=== PATIENT | female | born 1990 | race Hispanic/Latino ===

== ENCOUNTER 2017-06-09 09:31 | Emergency (ER) | payer OTHER, SELFPAY ==
[2017-06-09] MEDS ORDERED: NA CHLORIDE 0.9% 1,000 ML ONE (12:41)
--- NOTE | 2017-06-09 12:41 | RAD REPORT ---
EXAM DESCRIPTION: RAD - Chest Single View - 06/09/2017 12:28 pm CLINICAL HISTORY: Fever, chest pain, cough COMPARISON: September 2015 TECHNIQUE: AP portable chest image was obtained 1218 hours . FINDINGS: Lungs are clear. Heart and vasculature are normal. No measurable pleural effusion and no p neumothorax. No gross bony abnormality seen. No acute aortic findings suspected. IMPRESSION: No acute cardiopulmonary process. No significant interval change.
[2017-06-09] MEDS ORDERED: ACETAMINOPHEN 500 MG TAB ONE (13:25)
[2017-06-09 13:41] LABS: Absolute Monocytes 0.6 K/uL (0.1-1.3); Absolute Neutrophil 8.3 K/uL (1.8-8.0); Basophils % 0.4 % (0-1.3); Eosinophils % 0.3 % (0-4.4); Hematocrit 37.6 % (36.0-45.0); MCH 24.5 pg (27.0-35.0); MCV 75.7 fL (80-100); MPV 9.3 fL (7.6-11.3); Monocytes % 5.8 % (3.3-12.3); RBC Red Blood Cell Count 4.97 M/uL (3.86-4.86)
[2017-06-09 13:46] LABS: Potassium 3.2 mEq/L (3.6-5.0)
[2017-06-09] MEDS ORDERED: ONDANSETRON 4 MG/2 ML VIAL ONE (13:50)
[2017-06-09] MEDS ORDERED: CEFTRIAXONE/SWI 1gm 1 GM/10 ML SYR ONE (13:50)
[2017-06-09 13:52] LABS: Albumin 4.1 g/dL (3.2-5.5); Bilirubin Direct 0.1 mg/dL (0-0.2); Bilirubin Total 0.5 mg/dL (0.3-1.2); Protein, Total 7.6 g/dL (6.0-8.3); Protime INR 1.03
--- NOTE | 2017-06-09 13:53 | EKG ---
Test Date: 2017-06-09 Test Time: 10:17:35 Repair Operator: MAINE MEASUREMENT RESULTS: Intervals: Rate: 105 LA: 156 QRSD: 80 QT: 314 QTc: 415 [place]: P: 73 LA: 156 QRS: 61 T: -38 INTERPRETIVE STATEMENTS: Sinus tachycardia T wave abnormality, consider inferior ischemia T wave abnormality, consider anterolateral ischemia Abnormal ECG Compared to ECG 09/30/2015 00:09:30 T-wave abnormality now present Possible ischemia now present Sinus rhythm no longer present Myocardial infarct finding no longer present Electronically Signed On 06-09-17 13:52:39 CDT by Catrachito Saravia
[2017-06-09 13:54] LABS: Urine Blood NEGATIVE (NEG); Urine Glucose NEGATIVE (NEG); Urine Protein 1+ (NEG); Urine Specific Gravity >1.030 (1.005-1.030); Urine pH 5.5 (5.0-7.0)
[2017-06-09 13:55] LABS: CKMB Creatine Kinase MB 0.9 ng/ml (0.3-4.0); Magnesium 1.6 mg/dL (1.8-2.5)
--- NOTE | 2017-06-09 13:55 | ER ---
Nurse's Notes [facility] Name: Harriett Gillette Age: 26 yrs Sex: Female : 1990 Arrival Date: 06/09/2017 Time: 09:34 Bed 14 Private MD: Julio Strange S Diagnosis: Fever, unspecified;Chest pain, unspecified;Nausea;Hypokalemia;Hypomagnesemia Presentation: 06/09 10:07 Presenting complaint: Patient states: has been having fever, CP, diarrhea, vomiting X 2 iw days, denies sore throat, denies cough. Transition of care: patient was not received from another setting of care. Onset of symptoms was June 07, 2017. Initial Sepsis Screen: Does the patient meet any 2 criteria? No. Patient's initial sepsis screen is negative. Does the patient have a suspected source of infection? No. Patient's initial sepsis screen is negative. Care prior to arrival: None. 10:07 Method Of Arrival: Ambulatory iw 10:07 Acuity: TIFFANIE 3 iw Historical: - Allergies: 14:52 Codeine; ph - PMHx: 14:52 heart valve dysfunction; ph - PSHx: 14:52 Appendectomy; ph - Immunization history:: Adult Immunizations not up to date. - Social history:: Smoking status: Patient/guardian denies using tobacco. - Family history:: not pertinent. Screenin:52 Abuse screen: Denies threats or abuse. Denies injuries from another. Nutritional ph screening: No deficits noted. Tuberculosis screening: No symptoms or risk factors identified. Fall Risk None identified. Assessment: 12:30 General: Appears in no apparent distress. uncomfortable, well groomed, Behavior is ph calm, cooperative, appropriate for age, Reports fever for 12-24 hours. Pain: Complains of pain in abdomen. Neuro: Level of Consciousness is awake, alert, obeys commands, Oriented to person, place, time, situation. Cardiovascular: Reports chest pain, nausea, vomiting, Denies fatigue, lightheadedness, palpitations, shortness of breath, Capillary refill < 3 seconds Patient's skin is warm and dry. Respiratory: Airway is patent Respiratory effort is even, unlabored, Respiratory pattern is regular, symmetrical. GI: Abdomen is round non-distended, Bowel sounds present X 4 quads. Abd is soft and non tender X 4 quads. Reports diarrhea, nausea, vomiting. Derm: Skin is intact, Skin is pink, warm \T\ dry. Musculoskeletal: Circulation, motion, and sensation intact. Range of motion: intact in all extremities. 13:30 Reassessment: Patient appears in no apparent distress at this time. Patient and/or ph family updated on plan of care and expected duration. Pain level reassessed. Patient is alert, oriented x 3, equal unlabored respirations, skin warm/dry/pink. Pt resting quietly, awaiting lab results. 14:30 Reassessment: Patient appears in no apparent distress at this time. Patient and/or ph family updated on plan of care and expected duration. Pain level reassessed. Patient is alert, oriented x 3, equal unlabored respirations, skin warm/dry/pink. Pt resting quietly, d/c pending completion of IV meds. Vital Signs: 10:31 BP 113 / 76; Pulse 105; Resp 16; Pulse Ox 98% on R/A; iw 13:21 BP 106 / 66; Pulse 76; Resp 18; Pulse Ox 97% on R/A; ph 14:30 BP 111 / 72; Pulse 72; Resp 18; Pulse Ox 98% on R/A; ph 15:25 BP 108 / 68; Pulse 71; Resp 18; Temp 97.8; Pulse Ox 99% on R/A; ph ED Course: 09:34 Patient arrived in ED. mr 09:34 Julio Strange MD is Private Physician. mr 10:08 Triage completed. iw 10:22 EKG done, by water filtration technician. reviewed by Jalil Tapia MD. at1 11:53 Tabitha Hill, AHSAN is Primary Nurse. ph 11:56 Jalil Tapia MD is Attending Physician. augie 12:26 X-ray completed. Portable x-ray completed in exam room. Patient tolerated procedure ml well. 12:26 XRAY Chest (1 view) In Process Unspecified. EDMS 13:15 Urine collected: clean catch specimen, clear. dh3 13:21 Arm band placed on. ph 14:57 Patient has correct armband on for positive identification. Placed in gown. Bed in low ph position. Call light in reach. 15:29 No provider procedures requiring assistance completed. ph 15:29 IV discontinued, intact, bleeding controlled, No redness/swelling at site. Pressure ph dressing applied. Administered Medications: 12:45 Drug: NS 0.9% 1000 ml Route: IV; Rate: 1 bolus; Site: left antecubital; ph 14:00 Follow up: Response: No adverse reaction; IV Status: Completed infusion ph 13:28 Drug: Tylenol 1000 mg Route: PO; ph 15:00 Follow up: Response: No adverse reaction ph 13:45 Drug: Zofran 4 mg Route: IVP; Site: right antecubital; ph 14:30 Follow up: Response: No adverse reaction; Nausea is decreased ph 14:15 Drug: Rocephin - (cefTRIAXone) 1 grams Route: IVPB; Infused Over: 30 mins; Site: left ph antecubital; 14:30 Follow up: Response: No adverse reaction; IV Status: Completed infusion ph 14:35 Drug: Magnesium Sulfate 1 grams Route: IVPB; Infused Over: 1 hrs; Site: left ph antecubital; 15:25 Follow up: Response: No adverse reaction; IV Status: Completed infusion ph 14:51 Drug: Potassium Chloride 40 mEq Route: PO; ph 15:00 Follow up: Response: No adverse reaction ph Outcome: 13:54 Discharge ordered by . augie 15:29 Patient left the ED. em 15:29 Discharged to home ambulatory. ph 15:29 Condition: good 15:29 Discharge instructions given to patient, Instructed on discharge instructions, follow up and referral plans. medication usage, Demonstrated understanding of instructions, follow-up care, medications, Prescriptions given X 2. Signatures: Dispatcher [employer] Jalil Hamilton MD MD cha Rivera, Maria mr Patel, Sage, HEATER HELPER FORGE HEATER HELPER FORGE em Analia Espino RN RN iw Lopez, Melissa ml gonzales, Amanda, metalizing supervisor EKG Tat1 Tabitha Hill RN RN Moiz, Araceli 3
--- NOTE | 2017-06-09 13:55 | EDPHYS ---
Physician Documentation [facility] Name: Harriett Gillette Age: 26 yrs Sex: Female : 1990 Arrival Date: 06/09/2017 Time: 09:34 Bed 14 Private MD: Julio Strange S ED Physician Jalil Tapia HPI: 06/09 12:31 This 26 yrs old Female presents to ER via Ambulatory with complaints of augie Nausea, Fever, Chest Pain. 12:31 This 26 yrs old Female presents to ER via Ambulatory with complaints of augie Nausea, Fever, Chest Pain. 12:31 The patient presents to the emergency department with nausea. Onset: The augie symptoms/episode began/occurred 2 day(s) ago. Possible causes: unknown. Associated signs and symptoms: Pertinent positives:. 12:34 The patient or guardian reports chest pain that is located primarily in the anterior augie chest wall. The symptoms are aggravated by nothing. The symptoms are alleviated by nothing. Associated signs and symptoms: The patient has no apparent associated signs or symptoms. Historical: - Allergies: 14:52 Codeine; ph - PMHx: 14:52 heart valve dysfunction; ph - PSHx: 14:52 Appendectomy; ph - Immunization history:: Adult Immunizations not up to date. - Social history:: Smoking status: Patient/guardian denies using tobacco. - Family history:: not pertinent. ROS: 12:34 Constitutional: Negative for fever, chills, and weight loss, Eyes: Negative for injury, augie pain, redness, and discharge, ENT: Negative for injury, pain, and discharge, Neck: Negative for injury, pain, and swelling, Back: Negative for injury and pain, : Negative for injury, bleeding, discharge, and swelling, MS/Extremity: Negative for injury and deformity, Skin: Negative for injury, rash, and discoloration, Neuro: Negative for headache, weakness, numbness, tingling, and seizure, Psych: Negative for depression, anxiety, suicide ideation, homicidal ideation, and hallucinations, Allergy/Immunology: Negative for hives, rash, and allergies, Endocrine: Negative for neck swelling, polydipsia, polyuria, polyphagia, and marked weight changes, Hematologic/Lymphatic: Negative for swollen nodes, abnormal bleeding, and unusual bruising. 12:34 Cardiovascular: Positive for chest pain. 12:34 Respiratory: Positive for cough. 12:34 Abdomen/GI: Positive for nausea and vomiting. Exam: 12:34 Constitutional: This is a well developed, well nourished patient who is awake, alert, augie and in no acute distress. Head/Face: Normocephalic, atraumatic. Eyes: Pupils equal round and reactive to light, extra-ocular motions intact. Lids and lashes normal. Conjunctiva and sclera are non-icteric and not injected. Cornea within normal limits. Periorbital areas with no swelling, redness, or edema. ENT: Nares patent. No nasal discharge, no septal abnormalities noted. Tympanic membranes are normal and external auditory canals are clear. Oropharynx with no redness, swelling, or masses, exudates, or evidence of obstruction, uvula midline. Mucous membranes moist. Neck: Trachea midline, no thyromegaly or masses palpated, and no cervical lymphadenopathy. Supple, full range of motion without nuchal rigidity, or vertebral point tenderness. No Meningismus. Chest/axilla: Normal chest wall appearance and motion. Nontender with no deformity. No lesions are appreciated. Respiratory: Lungs have equal breath sounds bilaterally, clear to auscultation and percussion. No rales, rhonchi or wheezes noted. No increased work of breathing, no retractions or nasal flaring. Abdomen/GI: Soft, non-tender, with normal bowel sounds. No distension or tympany. No guarding or rebound. No evidence of tenderness throughout. Back: No spinal tenderness. No costovertebral tenderness. Full range of motion. Female : Normal external genitalia. Skin: Warm, dry with normal turgor. Normal color with no rashes, no lesions, and no evidence of cellulitis. MS/ Extremity: Pulses equal, no cyanosis. Neurovascular intact. Full, normal range of motion. Neuro: Awake and alert, GCS 15, oriented to person, place, time, and situation. Cranial nerves II-XII grossly intact. Motor strength 5/5 in all extremities. Sensory grossly intact. Cerebellar exam normal. Normal gait. Psych: Awake, alert, with orientation to person, place and time. Behavior, mood, and affect are within normal limits. 12:34 Cardiovascular: Rate: tachycardic, Rhythm: regular, Pulses: Pulses are 4+ in bilateral radial, brachial, femoral, popliteal, posterior tibial and and dorsalis pedis arteries.. Heart sounds: normal, Edema: is not appreciated, JVD: is not appreciated. 13:45 Musculoskeletal/extremity: DVT Exam: No signs of deep vein thrombosis. no pain, no augie swelling, no tenderness, negative Homans' sign noted on exam, no appreciated bluish discoloration, no erythema, no increased warmth. Vital Signs: 10:31 BP 113 / 76; Pulse 105; Resp 16; Pulse Ox 98% on R/A; iw 13:21 BP 106 / 66; Pulse 76; Resp 18; Pulse Ox 97% on R/A; ph 14:30 BP 111 / 72; Pulse 72; Resp 18; Pulse Ox 98% on R/A; ph 15:25 BP 108 / 68; Pulse 71; Resp 18; Temp 97.8; Pulse Ox 99% on R/A; ph MDM: 11:56 Patient medically screened. [facility] 13:45 Data reviewed: vital signs, nurses notes, lab test result(s), EKG, radiologic studies, [facility] plain films. 06/09 12:01 Order name: Basic Metabolic Panel; Complete Time: 13:[address] [facility] 06/09 12:01 Order name: BNP [facility] 06/09 12:01 Order name: CBC with Diff; Complete Time: 13:[address] [facility] 06/09 12:01 Order name: Ckmb; Complete Time: 13:[address] [facility] 06/09 12:01 Order name: CPK; Complete Time: 13:[address] [facility] 06/09 12:01 Order name: LFT's; Complete Time: 13:[address] [facility] 06/09 12:01 Order name: Magnesium; Complete Time: 13:[address] [facility] 06/09 12:01 Order name: PT-INR [facility] 06/09 12:01 Order name: Ptt, Activated [facility] 06/09 12:01 Order name: Troponin (emerg Dept Use Only); Complete Time: 13:[address] [facility] 06/09 12:01 Order name: Blood Culture Adult (2) [facility] 06/09 12:01 Order name: Lipase; Complete Time: 13:[address] [facility] 06/09 13:41 Order name: Urine Dipstick--Ancillary (enter results); Complete Time: 13:56 06/09 13:41 Order name: Urine --Ancillary (enter results); Complete Time: 13:56 06/09 12:01 Order name: Urine Test (obtain specimen); Complete Time: 13:[address] [facility] 06/09 12:01 Order name: XRAY Chest (1 view); Complete Time: 13:[address] [facility] 06/09 12:01 Order name: EKG; Complete Time: 12:[address] [facility] 06/09 12:01 Order name: Cardiac monitoring; Complete Time: 13:[address] [facility] 06/09 12:01 Order name: EKG - Nurse/Tech; Complete Time: 13:[address] [facility] 06/09 12:01 Order name: IV Saline Lock; Complete Time: 13:[address] [facility] 06/09 12:01 Order name: Labs collected and sent; Complete Time: 13:[address] [facility] 06/09 12:01 Order name: O2 Per Protocol; Complete Time: 13:[address] [facility] 06/09 12:01 Order name: O2 Sat Monitoring; Complete Time: 13:[address] [facility] 06/09 12:01 Order name: Urine Dipstick-Ancillary (obtain specimen); Complete Time: 13:[address] [facility] Administered Medications: 12:45 Drug: NS 0.9% 1000 ml Route: IV; Rate: 1 bolus; Site: left antecubital; ph 14:00 Follow up: Response: No adverse reaction; IV Status: Completed infusion ph 13:28 Drug: Tylenol 1000 mg Route: PO; ph 15:00 Follow up: Response: No adverse reaction ph 13:45 Drug: Zofran 4 mg Route: IVP; Site: right antecubital; ph 14:30 Follow up: Response: No adverse reaction; Nausea is decreased ph 14:15 Drug: Rocephin - (cefTRIAXone) 1 grams Route: IVPB; Infused Over: 30 mins; Site: left ph antecubital; 14:30 Follow up: Response: No adverse reaction; IV Status: Completed infusion ph 14:35 Drug: Magnesium Sulfate 1 grams Route: IVPB; Infused Over: 1 hrs; Site: left ph antecubital; 15:25 Follow up: Response: No adverse reaction; IV Status: Completed infusion ph 14:51 Drug: Potassium Chloride 40 mEq Route: PO; ph 15:00 Follow up: Response: No adverse reaction ph Disposition: 06/09/17 13:54 Discharged to Home. Impression: Fever, unspecified, Chest pain, unspecified, Nausea, Hypokalemia, Hypomagnesemia. - Condition is Stable. - Discharge Instructions: Nonspecific Chest Pain, Potassium Content of Foods, Fever, Adult, Hypomagnesemia, Nausea, Adult, Nausea and Vomiting, [id number], Nonspecific Chest Pain, Qkzh-[id number], Fever, Adult, [id number], Hypokalemia. - Prescriptions for Zofran 4 mg Oral Tablet - take 1 tablet by ORAL route every 12 hours As needed; 20 tablet. Zithromax Z- Trent 250 mg Oral Tablet - take 1 tablet by ORAL route as directed for 5 days Day 1 - take two (2) tablets one time. Day 2, 3, 4 , 5 take one (1) tablet once daily.; 6 tablet. - Medication Reconciliation Form, Thank You Letter, Antibiotic Education, Prescription Opioid Use, Work release form form. - Follow up: Private Physician; When: 2 - 3 days; Reason: Recheck today's complaints, Continuance of care, Re-evaluation by your physician. - Problem is new. - Symptoms have improved. Signatures: Dispatcher [employer] Jalil Hamilton MD MD cha Munoz, Edgar, LABELS MOLDER LABELS MOLDER Tabitha Gross, RN RN ph
[2017-06-09] MEDS ORDERED: MAGNESIUM SULFATE 1 gm IVPB 1 GM/100 ML BAG IV ONE (14:17)
[2017-06-09] MEDS ORDERED: POTASSIUM 25 MEQ EFFERV TAB ONE (14:17)
== END 2017-06-09 15:29 | disposition home or self-care (01) ==
LOC: ER 09:31
DX: R07.9 Chest pain, unspecified (principal); R11.0 Nausea; E87.6 Hypokalemia; E83.42 Hypomagnesemia
CPT/HCPCS: 36415; 71045; 80048; 80076; 81003; 81025; 82550; 82553; 83690; 83735; 83880; 84484; 85025; 85610; 85730; 87040; 93005; 99284; J0696; J2405; J3475; J7030

== ENCOUNTER 2017-08-29 21:37 | Emergency (ER) | payer SELFPAY ==
[2017-08-29 22:34] LABS: Absolute Lymphocytes (CBC) 3.8 K/uL (0.7-4.9); Absolute Monocytes 0.6 K/uL (0.1-1.3); Absolute Neutrophil 5.3 K/uL (1.8-8.0); Eosinophils % 2.5 % (0-4.4); Hematocrit 36.2 % (36.0-45.0); Lymphocytes % 37.5 % (15.3-44.8); MCV 77.7 fL (80-100); MPV 9.2 fL (7.6-11.3); Monocytes % 6.4 % (3.3-12.3); RBC Red Blood Cell Count 4.67 M/uL (3.86-4.86)
[2017-08-29 22:34] LABS: Urine Blood 2+ (NEG); Urine Glucose NEGATIVE (NEG); Urine Protein NEGATIVE (NEG)
[2017-08-29 22:38] LABS: Protime INR 0.97
[2017-08-29 22:47] LABS: Urine Bacteria <20 /HPF (<20); Urine Culture Reflex Order NOT NEEDED; Urine RBC <5 /HPF (NONE SEEN)
--- NOTE | 2017-08-29 23:48 | ER ---
Nurse's Notes [facility] Name: Harriett Gillette Age: 26 yrs Sex: Female : 1990 Arrival Date: 08/29/2017 Time: 21:38 Bed 18 Private MD: Diagnosis: Abnormal uterine and vaginal bleeding, unspecified Presentation: 08/29 21:56 Presenting complaint: Patient states: "I have been having my period for about a year. jd3 Today I started passing clots about the size of courters.". Transition of care: patient was not received from another setting of care. Onset of symptoms was August 29, 2017. Risk Assessment: Do you want to hurt yourself or someone else? Patient reports no desire to harm self or others. Initial Sepsis Screen: Does the patient meet any 2 criteria? No. Patient's initial sepsis screen is negative. Does the patient have a suspected source of infection? No. Patient's initial sepsis screen is negative. Care prior to arrival: None. 21:56 Method Of Arrival: Ambulatory j 21:56 Acuity: TIFFANIE 3 jd3 PRODUCTION CONTROL COORDINATOR: 21:59 LMP 08/29/2017 jd3 Historical: - Allergies: 21:58 Codeine; jd3 - Home Meds: 21:58 None [Active]; jd3 - PMHx: 21:58 heart valve dysfunction; jd3 - PSHx: 21:58 Appendectomy; jd3 - Immunization history:: Adult Immunizations up to date. - Social history:: Smoking status: . - Ebola Screening: : Patient negative for fever greater than or equal to 101.5 degrees Fahrenheit, and additional compatible Ebola Virus Disease symptoms. - Family history:: not pertinent. - Hospitalizations: : No recent hospitalization is reported. Screenin:03 Abuse screen: Denies threats or abuse. Nutritional screening: No deficits noted. jd3 Tuberculosis screening: Tuberculosis screening: No symptoms or risk factors identified. Fall Risk Ambulatory Aid- None/Bed Rest/Nurse Assist (0 pts). Gait- Normal/Bed Rest/Wheelchair (0 pts) Mental Status- Oriented to own ability (0 pts). Total George Fall Scale indicates No Risk (0-24 pts). Assessment: 22:01 General: Appears in no apparent distress. uncomfortable, Behavior is calm, cooperative, jd3 appropriate for age. Pain: Complains of pain in low back area Quality of pain is described as aching. Neuro: Level of Consciousness is awake, alert, obeys commands, Oriented to person, place, time, situation. Cardiovascular: Capillary refill < 3 seconds Patient's skin is warm and dry. Respiratory: Airway is patent Respiratory effort is even, unlabored, Respiratory pattern is regular, symmetrical. GI: No signs and/or symptoms were reported involving the gastrointestinal system. : Urine is blood tinged, Reports vaginal bleeding that is with clots, moderate flow, light flow, since for a year. EENT: No signs and/or symptoms were reported regarding the EENT system. Derm: Skin is intact, Skin is dry, Skin is normal, Skin temperature is warm. Musculoskeletal: Circulation, motion, and sensation intact. Range of motion: intact in all extremities. Vital Signs: 21:59 BP 130 / 85; Pulse 88; Resp 16 S; Temp 99.1(O); Pulse Ox 100% on R/A; Weight 61.23 kg j (R); Height 5 ft. 0 in. (152.40 cm) (R); 22:42 BP 113 / 86; Pulse 76; Resp 16 S; Pulse Ox 100% on R/A; jd3 08/30 00:06 BP 102 / 76; Pulse 70; Resp 17 S; Pulse Ox 100% on R/A; jd3 08/29 21:59 Body Mass Index 26.37 (61.23 kg, 152.40 cm) jd3 ED Course: 08/29 21:38 Patient arrived in ED. es 21:46 Yonathan Esposito, RN is Primary Nurse. jd3 21:51 Tripp Clark MD is Attending Physician. rn 21:58 Triage completed. jd3 22:00 Arm band placed on. jd3 22:03 Patient has correct armband on for positive identification. Bed in low position. Call j light in reach. Side rails up X 1. Adult w/ patient. 08/30 00:07 No provider procedures requiring assistance completed. Patient did not have IV access jd3 during this emergency room visit. Administered Medications: No medications were administered Outcome: 08/29 23:48 Discharge ordered by . rn 08/30 00:07 Discharged to home ambulatory, with family. j Condition: stable Discharge instructions given to patient, family, Instructed on discharge instructions, follow up and referral plans. Demonstrated understanding of instructions, follow-up care. 00:08 Patient left the ED. jd3 Signatures: Hillary Phillip Roman, MD MD rn Davies, Jonathon, RN RN jfani Corrections: (The following items were deleted from the chart) 08/29 23:11 22:42 Pulse 76bpm; Resp 16bpm; Spontaneous; Pulse Ox 100% RA; jd3 jd3
--- NOTE | 2017-08-29 23:48 | EDPHYS ---
Physician Documentation [facility] Name: Harriett Gillette Age: 26 yrs Sex: Female : 1990 Arrival Date: 08/29/2017 Time: 21:38 Bed 18 Private MD: ED Physician Tirpp Clark HPI: 08/29 23:44 This 26 yrs old Female presents to ER via Ambulatory with complaints of rn Vaginal Bleeding, Back Pain. 23:44 The patient presents with vaginal bleeding that is. Onset: The symptoms/episode rn began/occurred 1 year(s) ago. Modifying factors: The symptoms are alleviated by nothing, the symptoms are aggravated by nothing. Severity of symptoms: At their worst the symptoms were moderate, in the emergency department the symptoms are unchanged. The patient has experienced similar episodes in the past. Reports vaginal bleeding for 1 year, intermittent, her doctor thinks maybe due to her control, has appointment with COAGULATING BATH MIXER on Friday, bled a little more today so came in for eval, no syncope/sob.. 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 - Social history:: Smoking status: . - Ebola Screening: : Patient negative for fever greater than or equal to 101.5 degrees Fahrenheit, and additional compatible Ebola Virus Disease symptoms. - Family history:: not pertinent. - Hospitalizations: : No recent hospitalization is reported. ROS: 23:44 Constitutional: Negative for fever, chills, and weight loss, Eyes: Negative for injury, rn pain, redness, and discharge, Cardiovascular: Negative for chest pain, palpitations, and edema, Respiratory: Negative for shortness of breath, cough, wheezing, and pleuritic chest pain, Abdomen/GI: Negative for abdominal pain, nausea, vomiting, diarrhea, and constipation, Back: Negative for injury and pain, : + vaginal bleeding MS/Extremity: Negative for injury and deformity, Skin: Negative for injury, rash, and discoloration, Neuro: Negative for headache, weakness, numbness, tingling, and seizure. Exam: 23:44 Constitutional: This is a well developed, well nourished patient who is awake, alert, rn and in no acute distress. Head/Face: Normocephalic, atraumatic. Eyes: Pupils equal round and reactive to light, extra-ocular motions intact. Lids and lashes normal. Conjunctiva and sclera are non-icteric and not injected. Cornea within normal limits. Periorbital areas with no swelling, redness, or edema. Cardiovascular: Regular rate and rhythm with a normal S1 and S2. No gallops, murmurs, or rubs. Normal PMI, no JVD. No pulse deficits. Respiratory: Lungs have equal breath sounds bilaterally, clear to auscultation and percussion. No rales, rhonchi or wheezes noted. No increased work of breathing, no retractions or nasal flaring. Abdomen/GI: Soft, non-tender, with normal bowel sounds. No distension or tympany. No guarding or rebound. No evidence of tenderness throughout. MS/ Extremity: Pulses equal, no cyanosis. Neurovascular intact. Full, normal range of motion. Equal circumference. Neuro: Awake and alert, GCS 15, oriented to person, place, time, and situation. Cranial nerves II-XII grossly intact. Motor strength 5/5 in all extremities. Sensory grossly intact. Cerebellar exam normal. Normal gait. Vital Signs: 21:59 BP 130 / 85; Pulse 88; Resp 16 S; Temp 99.1(O); Pulse Ox 100% on R/A; Weight 61.23 kg jd3 (R); Height 5 ft. 0 in. (152.40 cm) (R); 22:42 BP 113 / 86; Pulse 76; Resp 16 S; Pulse Ox 100% on R/A; jd3 08/30 00:06 BP 102 / 76; Pulse 70; Resp 17 S; Pulse Ox 100% on R/A; jd3 08/29 21:59 Body Mass Index 26.37 (61.23 kg, 152.40 cm) jd3 MDM: 08/29 21:51 Patient medically screened. rn 23:47 Differential diagnosis: menometrorrhagia, uterine fibroids, urinary tract infection. 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 Counseling: I had a detailed discussion with the patient and/or guardian regarding: the historical points, exam findings, and any diagnostic results supporting the discharge/admit diagnosis, lab results, the need for outpatient follow up, to return to the emergency department if symptoms worsen or persist or if there are any questions or concerns that arise at home. Special discussion: I discussed with the patient/guardian in detail that at this point there is no indication for admission to the hospital. It is understood, however, that if the symptoms persist or worsen the patient needs to return immediately for re-evaluation. Based on the history and exam findings, there is no indication for further emergent testing or inpatient evaluation. I discussed with the patient/guardian the need to see the OB Gyne specialist for further evaluation of the symptoms. 23:47 ED course: Normal vitals, normal h/h, will dc home with COAGULATING BATH MIXER f/u as scheduled this next rn week.. 08/29 22:02 Order name: CBC with Diff; Complete Time: 22:59 rn 08/29 22:02 Order name: Basic Metabolic Panel; Complete Time: 22:59 rn 08/29 22:02 Order name: Protime (+inr); Complete Time: 22:59 rn 08/29 22:02 Order name: Ptt, Activated; Complete Time: 22:59 rn 08/29 22:02 Order name: Urine Microscopic Only; Complete Time: 22:59 rn 08/29 22:29 Order name: Urine Dipstick--Ancillary (enter results); Complete Time: 22:59 ms 08/29 22:02 Order name: Urine Test (obtain specimen); Complete Time: 22:28 rn 08/29 22:02 Order name: Urine Dipstick-Ancillary (obtain specimen); Complete Time: 22:28 rn 08/29 22:32 Order name: Urine --Ancillary (enter results); Complete Time: 22:59 ms Administered Medications: No medications were administered Disposition: 08/29/17 23:48 Discharged to Home. Impression: Abnormal uterine and vaginal bleeding, unspecified. - Condition is Stable. - Discharge Instructions: Abnormal Uterine Bleeding. - Medication Reconciliation Form, Thank You Letter, Antibiotic Education, Prescription Opioid Use form. - Follow up: Private Physician; When: As needed; Reason: Recheck today's complaints, Re-evaluation by your physician. - Problem is an ongoing problem. - Symptoms are unchanged. Signatures: Dispatcher [employer] EDTripp Nash MD MD rn Davies, Jonathon, RN RN jd3 Corrections: (The following items were deleted from the chart) 08/30 00:08 08/29 23:48 08/29/2017 23:48 Discharged to Home. Impression: Abnormal uterine and jd3 vaginal bleeding, unspecified. Condition is Stable. Forms are Medication Reconciliation Form, Thank You Letter, Antibiotic Education, Prescription Opioid Use. Follow up: Private Physician; When: As needed; Reason: Recheck today's complaints, Re-evaluation by your physician. Problem is an ongoing problem. Symptoms are unchanged. rn
== END 2017-08-30 00:08 | disposition home or self-care (01) ==
LOC: ER 21:37
DX: N93.9 Abnormal uterine and vaginal bleeding, unspecified (principal); Z88.5 Allergy status to narcotic agent
CPT/HCPCS: 36415; 80048; 81003; 81015; 81025; 85025; 85610; 85730; 99281

== ENCOUNTER 2017-09-16 11:27 | Emergency (ER) | payer SELFPAY ==
--- NOTE | 2017-09-16 12:16 | ER ---
Nurse's Notes [facility] Name: Harriett Gillette Age: 26 yrs Sex: Female : 1990 Arrival Date: 09/16/2017 Time: :31 Bed 23 Private MD: None, None Diagnosis: Jaw pain-Left Lower with tooth #19 pain Presentation: 09/16 11:36 Presenting complaint: Patient states: "[facility] sent me here because they aj couldn't work me in. I have tooth pain." Reports swelling and pain to left lower jaw. Broken tooth noted. Transition of care: patient was not received from another setting of care. Onset of symptoms was September 16, 2017. Risk Assessment: Do you want to hurt yourself or someone else? Patient reports no desire to harm self or others. Initial Sepsis Screen: Does the patient meet any 2 criteria? No. Patient's initial sepsis screen is negative. Does the patient have a suspected source of infection? No. Patient's initial sepsis screen is negative. Care prior to arrival: None. 11:36 Method Of Arrival: Ambulatory 11:36 Acuity: TIFFANIE 5 aj Triage Assessment: 11:37 General: Appears in no apparent distress. comfortable, Behavior is calm, cooperative, aj appropriate for age. Pain: Complains of pain in lower left first molar. EENT: Reports pain in lower left first molar. Neuro: Level of Consciousness is awake, alert, obeys commands, Oriented to person, place, time, situation, Appropriate for age. Respiratory: Airway is patent Respiratory effort is even, unlabored, Respiratory pattern is regular, symmetrical. Derm: Skin is intact, is healthy with good turgor, Skin is pink, warm \\T\\ dry. normal. 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 - Social history:: Smoking status: Patient uses tobacco products, smokes one-half pack cigarettes per day. - Ebola Screening: : Patient negative for fever greater than or equal to 101.5 degrees Fahrenheit, and additional compatible Ebola Virus Disease symptoms Patient denies exposure to infectious person Patient denies travel to an Ebola-affected area in the 21 days before illness onset No symptoms or risks identified at this time. Screenin:45 Abuse screen: Denies threats or abuse. Denies injuries from another. Nutritional hb screening: No deficits noted. Tuberculosis screening: No symptoms or risk factors identified. Fall Risk None identified. Assessment: 11:45 General: Appears in no apparent distress. Behavior is calm, cooperative. Pain: Pain hb currently is 6 out of 10 on a pain scale. Neuro: Level of Consciousness is awake, alert, obeys commands, Oriented to person, place, time, situation. Cardiovascular: Capillary refill < 3 seconds Patient's skin is warm and dry. Respiratory: Airway is patent Trachea midline Respiratory effort is even, unlabored, Respiratory pattern is regular, symmetrical. EENT: Reports pain in mouth and lower left first molar. Vital Signs: 11:37 BP 111 / 76; Pulse 70; Resp 16; Temp 98.0; Pulse Ox 99% on R/A; Weight 61.23 kg; Height aj 5 ft. 0 in. (152.40 cm); 11:37 Body Mass Index 26.37 (61.23 kg, 152.40 cm) aj ED Course: 11:31 Patient arrived in ED. mr 11:33 None, None is Private Physician. mr 11:37 Triage completed. aj 11:37 Arm band placed on left wrist. Patient placed in waiting room, Patient notified of wait aj time. 11:45 Patient has correct armband on for positive identification. Bed in low position. Call hb light in reach. Side rails up X 1. 11:53 Evy Esteves, AHSAN is Primary Nurse. hb 11:58 Jalil Stockton PA is PHCP. cp 11:58 Jalil Tapia MD is Attending Physician. cp 12:26 No provider procedures requiring assistance completed. Patient did not have IV access hb during this emergency room visit. Administered Medications: No medications were administered Outcome: 12:16 Discharge ordered by . cp 12:26 Discharged to home ambulatory. hb 12:26 Condition: stable 12:26 Discharge instructions given to patient, Instructed on discharge instructions, follow up and referral plans. medication usage, Demonstrated understanding of instructions, follow-up care, medications, Prescriptions given X 2. 12:26 Patient left the ED. hb Signatures: Mayte Lr RN RN Haley Lugo mr Jalil Stockton, Evy Hutson cp, RN RN hb
--- NOTE | 2017-09-16 12:16 | EDPHYS ---
Physician Documentation [facility] Name: Harriett Gillette Age: 26 yrs Sex: Female : 1990 Arrival Date: 09/16/2017 Time: : Bed 23 Private MD: None, None ED Physician Jalil Tapia HPI: 09/16 12:00 This 26 yrs old Female presents to ER via Ambulatory with complaints of cp Abscess Tooth. 12:00 The patient presents with pain. The problem is located in the tooth #19. Onset: The cp symptoms/episode began/occurred 4 day(s) ago. Duration: The symptoms are continuous, and are steadily getting worse. Associated signs and symptoms: Pertinent negatives: anorexia, dysphagia, fever, inability to eat. Severity of symptoms: in the emergency department the symptoms are unchanged, despite home interventions. 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 - Social history:: Smoking status: Patient uses tobacco products, smokes one-half pack cigarettes per day. - Ebola Screening: : Patient negative for fever greater than or equal to 101.5 degrees Fahrenheit, and additional compatible Ebola Virus Disease symptoms Patient denies exposure to infectious person Patient denies travel to an Ebola-affected area in the 21 days before illness onset No symptoms or risks identified at this time. ROS: 12:05 Constitutional: Negative for body aches, chills, fever, poor PO intake. cp 12:05 Eyes: Negative for injury, pain, redness, and discharge. cp 12:05 ENT: Positive for Teeth pain Negative for drainage from ear(s), ear pain, sore throat, difficulty swallowing, difficulty handling secretions. 12:05 Neck: Negative for pain with movement, pain at rest, stiffness, swollen nodes, tenderness. 12:05 Cardiovascular: Negative for chest pain, edema, palpitations. 12:05 Respiratory: Negative for cough, shortness of breath, wheezing. 12:05 Abdomen/GI: Negative for abdominal pain, nausea, vomiting, and diarrhea, black/tarry stool, rectal bleeding. 12:05 Skin: Negative for cellulitis, rash. 12:05 Neuro: Negative for altered mental status, dizziness, headache, weakness. 12:05 All other systems are negative. Exam: 12:08 Constitutional: The patient appears in no acute distress, alert, awake, non-toxic, well cp developed, well nourished. 12:08 Head/Face: Normocephalic, atraumatic. cp 12:08 Eyes: Periorbital structures: appear normal, Conjunctiva: normal, no exudate, no injection, Lids and lashes: appear normal, bilaterally. 12:08 ENT: External ear(s): are unremarkable, Nose: is normal, Mouth: Lips: moist, Oral mucosa: pink and intact, moist, Gums: normal with healthy appearance, Tongue: is normal, abscess, is not appreciated, drooling, is not appreciated, Posterior pharynx: Airway: no evidence of obstruction, patent, Uvula: midline, swelling, is not appreciated, erythema, is not appreciated, exudate, is not appreciated, Dental exam: dental caries, that is mild, diffusely, fractured teeth are noted, specifically the lower left first molar (#19), pain, that is moderate, specifically in the lower left first molar (#19). 12:08 Neck: ROM/movement: is normal, is supple, without pain, no range of motions limitations, no meningismus, no nuchal rigidity, Lymph nodes: no appreciated lymphadenopathy. 12:08 Chest/axilla: Inspection: normal, Palpation: is normal, no crepitus, no tenderness. 12:08 Cardiovascular: Rate: normal, Rhythm: regular. 12:08 Respiratory: the patient does not display signs of respiratory distress, Respirations: cp normal, no use of accessory muscles, no retractions, no splinting, no tachypnea, labored breathing, is not present, Breath sounds: are clear throughout, no decreased breath sounds, no stridor, no wheezing. 12:08 Abdomen/GI: Exam negative for discomfort, distension, guarding, Inspection: abdomen appears normal. 12:08 Skin: cellulitis, is not appreciated, no rash present. cp Vital Signs: 11:37 BP 111 / 76; Pulse 70; Resp 16; Temp 98.0; Pulse Ox 99% on R/A; Weight 61.23 kg; Height aj 5 ft. 0 in. (152.40 cm); 11:37 Body Mass Index 26.37 (61.23 kg, 152.40 cm) MDM: 11:59 Patient medically screened. cp 12:15 Differential diagnosis: dental caries, gingivitis, dental abscess, pericoronitis, cp gingivostomatitis. 12:15 Data reviewed: vital signs, nurses notes, and as a result, I will discharge patient. cp 12:15 Counseling: I had a detailed discussion with the patient and/or guardian regarding: the cp historical points, exam findings, and any diagnostic results supporting the discharge/admit diagnosis, the need for outpatient follow up, a dentist, to return to the emergency department if symptoms worsen or persist or if there are any questions or concerns that arise at home. Administered Medications: No medications were administered Disposition: 13:35 Co-signature as Attending Physician, Jalil Tapia MD I agree with the assessment and [facility] plan of care. Disposition: 09/16/17 12:16 Discharged to Home. Impression: Jaw pain - Left Lower with tooth #19 pain. - Condition is Stable. - Discharge Instructions: Dental Pain. - Prescriptions for Clindamycin HCl 300 mg Oral Capsule - take 1 capsule by ORAL route every 6 hours for 10 days; 40 capsule. Naprosyn 500 mg Oral Tablet - take 1 tablet by ORAL route 2 times per day take with food; 20 tablet. - Medication Reconciliation Form, Thank You Letter, Antibiotic Education, Prescription Opioid Use, Work release form form. - Follow up: Private Physician; When: 2 - 3 days; Reason: Recheck today's complaints. - Problem is new. - Symptoms are unchanged. Signatures: Mayte Lr RN RN Jalil Siddiqui MD MD cha Page, Corey, PA PA Evy Cavazos, AHSAN RN hb Corrections: (The following items were deleted from the chart) 12:26 12:16 09/16/2017 12:16 Discharged to Home. Impression: Jaw pain - Left Lower with tooth hb #19 pain. Condition is Stable. Forms are Medication Reconciliation Form, Thank You Letter, Antibiotic Education, Prescription Opioid Use. Follow up: Private Physician; When: 2 - 3 days; Reason: Recheck today's complaints. Problem is new. Symptoms are unchanged. cp
== END 2017-09-16 12:26 | disposition home or self-care (01) ==
LOC: ER 11:27
DX: K08.89 Other specified disorders of teeth and supporting structures (principal); R68.84 Jaw pain; F17.210 Nicotine dependence, cigarettes, uncomplicated; Z88.6 Allergy status to analgesic agent
CPT/HCPCS: 99282

== ENCOUNTER 2018-03-04 17:55 | Emergency (ER) | payer SELFPAY ==
--- NOTE | 2018-03-04 19:17 | ER ---
Nurse's Notes [facility] Name: Harriett Gillette Age: 27 yrs Sex: Female : 1990 Arrival Date: 03/04/2018 Time: 17:58 Bed 11 Private MD: Julio Strange S Diagnosis: Acute upper respiratory infection, unspecified Presentation: 03/04 18:04 Presenting complaint: Malaise, body aches, sinus congestion, sneezing, and fever x 2 hb days. Transition of care: patient was not received from another setting of care. Onset of symptoms was March 03, 2018. Risk Assessment: Do you want to hurt yourself or someone else? Patient reports no desire to harm self or others. Care prior to arrival: None. 18:04 Method Of Arrival: Ambulatory hb 18:04 Acuity: TIFFANIE 4 hb 18:43 Initial Sepsis Screen: Does the patient meet any 2 criteria? No. Patient's initial hb sepsis screen is negative. Does the patient have a suspected source of infection? No. Patient's initial sepsis screen is negative. 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 - Social history:: Smoking status: Patient/guardian denies using tobacco. - Ebola Screening: : No symptoms or risks identified at this time. Screenin:07 Abuse screen: Denies threats or abuse. Denies injuries from another. Nutritional hb screening: No deficits noted. Tuberculosis screening: No symptoms or risk factors identified. Fall Risk None identified. Assessment: 18:15 General: Appears in no apparent distress. ill, Behavior is calm, cooperative. Pain: hb Pain currently is 6 out of 10 on a pain scale. Neuro: Level of Consciousness is awake, alert, obeys commands, Oriented to person, place, time, situation. Cardiovascular: Capillary refill < 3 seconds Patient's skin is warm and dry. Respiratory: Airway is patent Respiratory effort is even, unlabored, Respiratory pattern is regular, symmetrical, Breath sounds are clear bilaterally. GI: No signs and/or symptoms were reported involving the gastrointestinal system. : No signs and/or symptoms were reported regarding the genitourinary system. EENT: No signs and/or symptoms were reported regarding the EENT system. Derm: Skin is intact, is healthy with good turgor. Musculoskeletal: No signs and/or symptoms reported regarding the musculoskeletal system. 19:48 Reassessment: Patient appears in no apparent distress at this time. Patient is alert, aa1 oriented x 3, equal unlabored respirations, skin warm/dry/pink. Discussed d/c \T\ f/u instructions with pt \T\ family; denies questions or concerns at this time. Vital Signs: 18:06 BP 114 / 69; Pulse 100; Resp 16; Temp 98.8; Pulse Ox 100% on R/A; Pain 6/10; hb 19:48 BP 121 / 72; Pulse 89; Resp 18; Temp 98.7; Pulse Ox 99% on R/A; aa1 ED Course: 17:58 Patient arrived in ED. sb2 17:59 Julio Strange MD is Private Physician. sb2 18:06 Triage completed. hb 18:06 Elizabeth Donato FNP-C is [facility]. kb 18:06 Tripp Clrak MD is Attending Physician. kb 18:06 Arm band placed on. hb 18:15 Call light in reach. hb 18:42 Evy Esteves, RN is Primary Nurse. hb 19:48 No provider procedures requiring assistance completed. Patient did not have IV access aa1 during this emergency room visit. Administered Medications: No medications were administered Outcome: 19:17 Discharge ordered by MD. kb 19:48 Discharged to home ambulatory, with family. aa1 19:48 Condition: good 19:48 Discharge instructions given to patient, family, Instructed on discharge instructions, follow up and referral plans. Demonstrated understanding of instructions, follow-up care. 19:51 Patient left the ED. aa1 Signatures: Elizabeth Donato FNP-C FNP-Ckb Kern, Alissa RN RN aa1 Evy Esteves, RN RN Alana Aponte sb2
--- NOTE | 2018-03-04 19:17 | EDPHYS ---
Physician Documentation [facility] Name: Harriett Gillette Age: 27 yrs Sex: Female : 1990 Arrival Date: 03/04/2018 Time: 17:58 Bed 11 Private MD: Julio Strange S ED Physician Tripp Clark HPI: 03/04 19:17 This 27 yrs old Female presents to ER via Ambulatory with complaints of Fever, kb Body Aches. 19:17 The patient or guardian reports flu symptoms, arthralgias, low-grade fever, myalgias. kb Onset: The symptoms/episode began/occurred today. Severity of symptoms: At their worst the symptoms were moderate, in the emergency department the symptoms are unchanged. Modifying factors: The symptoms are alleviated by nothing, the symptoms are aggravated by nothing. Associated signs and symptoms: Pertinent positives: fever, rhinorrhea, Pertinent negatives: chest pain, diarrhea, ear ache, nausea, sore throat, vomiting. The patient has not experienced similar symptoms in the past. The patient has not recently seen a physician. Pt reports sneezing, body aches, fever and chills.. 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 - Social history:: Smoking status: Patient/guardian denies using tobacco. - Ebola Screening: : No symptoms or risks identified at this time. ROS: 19:17 ENT: Negative for injury, pain, and discharge, Neck: Negative for injury, pain, and kb swelling, Cardiovascular: Negative for chest pain, palpitations, and edema, Respiratory: Negative for shortness of breath, cough, wheezing, and pleuritic chest pain, Abdomen/GI: Negative for abdominal pain, nausea, vomiting, diarrhea, and constipation, MS/Extremity: Negative for injury and deformity, Skin: Negative for injury, rash, and discoloration, Neuro: Negative for headache, weakness, numbness, tingling, and seizure. 19:17 Constitutional: Positive for body aches, chills, fatigue, fever, malaise, Negative for poor PO intake, weight loss. Exam: 19:17 Constitutional: This is a well developed, well nourished patient who is awake, alert, kb and in no acute distress. Head/Face: Normocephalic, atraumatic. ENT: Nares patent. No nasal discharge, no septal abnormalities noted. Tympanic membranes are normal and external auditory canals are clear. Oropharynx with no redness, swelling, or masses, exudates, or evidence of obstruction, uvula midline. Mucous membranes moist. Neck: Trachea midline, no thyromegaly or masses palpated, and no cervical lymphadenopathy. Supple, full range of motion without nuchal rigidity, or vertebral point tenderness. No Meningismus. Chest/axilla: Normal chest wall appearance and motion. Nontender with no deformity. No lesions are appreciated. Cardiovascular: Regular rate and rhythm with a normal S1 and S2. No gallops, murmurs, or rubs. Normal PMI, no JVD. No pulse deficits. Respiratory: Lungs have equal breath sounds bilaterally, clear to auscultation and percussion. No rales, rhonchi or wheezes noted. No increased work of breathing, no retractions or nasal flaring. Abdomen/GI: Soft, non-tender, with normal bowel sounds. No distension or tympany. No guarding or rebound. No evidence of tenderness throughout. Skin: Warm, dry with normal turgor. Normal color with no rashes, no lesions, and no evidence of cellulitis. MS/ Extremity: Pulses equal, no cyanosis. Neurovascular intact. Full, normal range of motion. Neuro: Awake and alert, GCS 15, oriented to person, place, time, and situation. Cranial nerves II-XII grossly intact. Motor strength 5/5 in all extremities. Sensory grossly intact. Cerebellar exam normal. Normal gait. Vital Signs: 18:06 BP 114 / 69; Pulse 100; Resp 16; Temp 98.8; Pulse Ox 100% on R/A; Pain 6/10; hb 19:48 BP 121 / 72; Pulse 89; Resp 18; Temp 98.7; Pulse Ox 99% on R/A; aa1 MDM: 18:06 Patient medically screened. kb 19:16 Data reviewed: vital signs, nurses notes. Data interpreted: Pulse oximetry: on room air kb is 100 %. Interpretation: normal. Counseling: I had a detailed discussion with the patient and/or guardian regarding: the historical points, exam findings, and any diagnostic results supporting the discharge/admit diagnosis, lab results, the need for outpatient follow up, a family practitioner, to return to the emergency department if symptoms worsen or persist or if there are any questions or concerns that arise at home. 03/04 18:07 Order name: Flu; Complete Time: 18:43 kb 03/04 18:07 Order name: Strep; Complete Time: 18:43 kb 03/04 18:32 Order name: Throat Culture EDMS Administered Medications: No medications were administered Disposition: 03/04/18 19:17 Discharged to Home. Impression: Acute upper respiratory infection, unspecified. - Condition is Stable. - Discharge Instructions: Upper Respiratory Infection, Adult, [id number]. - Work release form, Medication Reconciliation Form, Thank You Letter, Antibiotic Education, Prescription Opioid Use form. - Follow up: Emergency Department; When: As needed; Reason: Worsening of condition. Follow up: Private Physician; When: 2 - 3 days; Reason: Recheck today's complaints, Continuance of care, Re-evaluation by your physician. Addendum: 03/06/2018 07:13 Co-signature as Attending Physician, Tripp Clark MD. r n Signatures: Dispatcher [employer] EDMS Elizabeth Donato, FINGERNAIL SCULPTURER-C FINGERNAIL SCULPTURER-Ckb Abena Larson RN RN aa1 Tripp Clark MD MD rn Baxter, Heather, RN RN Corrections: (The following items were deleted from the chart) 03/04 19:51 19:17 03/04/2018 19:17 Discharged to Home. Impression: Acute upper respiratory aa1 infection, unspecified. Condition is Stable. Forms are Medication Reconciliation Form, Thank You Letter, Antibiotic Education, Prescription Opioid Use. Follow up: Emergency Department; When: As needed; Reason: Worsening of condition. Follow up: Private Physician; When: 2 - 3 days; Reason: Recheck today's complaints, Continuance of care, Re-evaluation by your physician. kb
== END 2018-03-04 19:51 | disposition home or self-care (01) ==
LOC: ER 17:55
DX: J06.9 Acute upper respiratory infection, unspecified (principal)
CPT/HCPCS: 87070; 87081; 87804; 99281

== ENCOUNTER 2018-03-28 18:06 | Emergency (ER) | payer SELFPAY ==
--- OUTSIDE RECORDS SUMMARY | 2018-03-28 18:09 | XMS REPORT ---
:1990 [facility] Address [address] [place] [address] Dr. Calero [address] [place] [id number] Care Team Providers Name Role Phone Unavailable Unavailable Unavailable Problems This patient has no known problems. Allergies, Adverse Reactions, Alerts This patient has no known allergies or adverse reactions. Medications This patient has no known medications.
[2018-03-28 18:56] LABS: Urine Blood NEGATIVE (NEG); Urine Glucose 2+ (NEG); Urine Protein TRACE (NEG); Urine Specific Gravity 1.025 (1.005-1.030); Urine pH 5.5 (5.0-7.0)
[2018-03-28 19:04] LABS: Absolute Lymphocytes (CBC) 2.1 K/uL (0.7-4.9); Absolute Monocytes 0.7 K/uL (0.1-1.3); Absolute Neutrophil 7.2 K/uL (1.8-8.0); Basophils % 0.7 % (0-1.3); Eosinophils % 2.8 % (0-4.4); Hematocrit 33.8 % (36.0-45.0); MPV 8.7 fL (7.6-11.3); Monocytes % 7.1 % (3.3-12.3); RBC Red Blood Cell Count 3.99 M/uL (3.86-4.86)
[2018-03-28] MEDS ORDERED: ACETAMINOPHEN 500 MG TAB ONE (19:30)
[2018-03-28 19:32] LABS: BUN Blood Urea Nitrogen 9 mg/dL (7-18); Bicarbonate 21 mmol/L (21-32); Glucose Level 117 mg/dL (74-106); HCG, Quantitative 42925 mIU/mL (1-3); Potassium 3.6 mmol/L (3.5-5.1); Sodium Level 139 mmol/L (136-145)
--- NOTE | 2018-03-28 20:52 | EDPHYS ---
Physician Documentation [facility] Name: Harriett Gillette Age: 27 yrs Sex: Female : 1990 Arrival Date: 03/28/2018 Time: 18:10 Bed 19 Private MD: None, None ED Physician Tripp Clark HPI: 03/28 20:49 This 27 yrs old Female presents to ER via Ambulatory with complaints of kb Vaginal Bleeding, + Preg <12wks, Abdominal Cramping. 20:49 The patient presents to the emergency department with abdominal pain, of the right kb lower quadrant and left lower quadrant, described as crampy, vaginal bleeding, described as spotting. course: care: none, Leakage of Fluid: none appreciated, Ultrasound: the patient has not had an ultrasound, Risk/complications: no obvious risks or complications are appreciated. Previous pregnancies: in previous pregnancies patient has had. Associated signs and symptoms: Pertinent positives: abdominal pain, vaginal bleeding. The patient has not experienced similar symptoms in the past. The patient has not recently seen a physician. Pt states she not had a period since the nexplanon was removed in August. Started on oral control pills after nexplanon removed. Went to get more BCP and was told she her test was positive on Friday. States she has had spotting and cramping.. 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 - Social history:: Smoking status: Patient uses tobacco products, smokes one-half pack cigarettes per day. - Ebola Screening: : No symptoms or risks identified at this time. ROS: 20:05 Constitutional: Negative for fever, chills, and weight loss, Cardiovascular: Negative kb for chest pain, palpitations, and edema, Respiratory: Negative for shortness of breath, cough, wheezing, and pleuritic chest pain, Skin: Negative for injury, rash, and discoloration, Neuro: Negative for headache, weakness, numbness, tingling, and seizure. 20:05 Abdomen/GI: Positive for abdominal cramps. 20:05 : Positive for vaginal bleeding. Exam: 20:05 Constitutional: This is a well developed, well nourished patient who is awake, alert, kb and in no acute distress. Head/Face: Normocephalic, atraumatic. ENT: Nares patent. No nasal discharge, no septal abnormalities noted. Tympanic membranes are normal and external auditory canals are clear. Oropharynx with no redness, swelling, or masses, exudates, or evidence of obstruction, uvula midline. Mucous membranes moist. Neck: Trachea midline, no thyromegaly or masses palpated, and no cervical lymphadenopathy. Supple, full range of motion without nuchal rigidity, or vertebral point tenderness. No Meningismus. Chest/axilla: Normal chest wall appearance and motion. Nontender with no deformity. No lesions are appreciated. Cardiovascular: Regular rate and rhythm with a normal S1 and S2. No gallops, murmurs, or rubs. Normal PMI, no JVD. No pulse deficits. Respiratory: Lungs have equal breath sounds bilaterally, clear to auscultation and percussion. No rales, rhonchi or wheezes noted. No increased work of breathing, no retractions or nasal flaring. Abdomen/GI: Soft, non-tender, with normal bowel sounds. No distension or tympany. No guarding or rebound. No evidence of tenderness throughout. Skin: Warm, dry with normal turgor. Normal color with no rashes, no lesions, and no evidence of cellulitis. MS/ Extremity: Pulses equal, no cyanosis. Neurovascular intact. Full, normal range of motion. Neuro: Awake and alert, GCS 15, oriented to person, place, time, and situation. Cranial nerves II-XII grossly intact. Motor strength 5/5 in all extremities. Sensory grossly intact. Cerebellar exam normal. Normal gait. Vital Signs: 18:14 BP 128 / 69; Pulse 114; Resp 18; Temp 97.4; Pulse Ox 99% on R/A; Weight 58.51 kg; la1 Height 5 ft. 1 in. (154.94 cm); 19:13 BP 107 / 68; Pulse 95; Resp 16; Pulse Ox 100% on R/A; jb4 20:30 BP 108 / 71; Pulse 76; Resp 18; Pulse Ox 100% on R/A; jb4 21:00 BP 116 / 82; Pulse 100; Resp 16; Pulse Ox 100% on R/A; jb4 18:14 Body Mass Index 24.37 (58.51 kg, 154.94 cm) la1 MDM: 18:32 Patient medically screened. kb 20:08 Data reviewed: vital signs, nurses notes. Data interpreted: Pulse oximetry: on room air kb is 100 %. Interpretation: normal. 20:51 Counseling: I had a detailed discussion with the patient and/or guardian regarding: the kb historical points, exam findings, and any diagnostic results supporting the discharge/admit diagnosis, lab results, radiology results, the need for outpatient follow up, an OB/Gyne specialist, to return to the emergency department if symptoms worsen or persist or if there are any questions or concerns that arise at home. 03/28 18:32 Order name: Quantitative Hcg; Complete Time: 19:41 kb 03/28 18:32 Order name: Abo/rh Typing; Complete Time: 19:41 kb 03/28 18:32 Order name: Basic Metabolic Panel; Complete Time: 19:41 kb 03/28 18:32 Order name: CBC with Diff; Complete Time: 19:05 kb 03/28 18:54 Order name: Urine Dipstick--Ancillary (enter results); Complete Time: 19:05 eb 03/28 18:54 Order name: Urine --Ancillary (enter results); Complete Time: 19:05 eb 03/28 18:32 Order name: Urine Test (obtain specimen); Complete Time: 18:41 kb 03/28 18:32 Order name: IV Saline Lock; Complete Time: 18:51 kb 03/28 18:32 Order name: Labs collected and sent; Complete Time: 18:51 kb 03/28 18:32 Order name: NPO; Complete Time: 18:51 kb 03/28 18:32 Order name: Urine Dipstick-Ancillary (obtain specimen); Complete Time: 18:41 kb 03/28 19:30 Order name: ABO/RH no charge; Complete Time: 19:41 EDMS 03/28 19:42 Order name: US Transvaginal Ob kb Administered Medications: 19:20 Drug: Tylenol 1000 mg Route: PO; jb4 21:17 Follow up: Response: No adverse reaction; Pain is decreased jb4 Disposition: 03/29 08:04 Co-signature as Attending Physician, Tripp Clark MD. rn Disposition: 03/28/18 20:51 Discharged to Home. Impression: 15 weeks gestation of . - Condition is Stable. - Discharge Instructions: Second Trimester of , [id number]. - Medication Reconciliation Form, Thank You Letter, Antibiotic Education, Prescription Opioid Use form. - Follow up: Emergency Department; When: As needed; Reason: Worsening of condition. Follow up: Private Physician; When: 2 - 3 days; Reason: Recheck today's complaints, Continuance of care, Re-evaluation by your physician. Signatures: Dispatcher [employer] EDMS Elizabeth Donato, WOOD GLUER-C WOOD GLUER-CkTripp Villegas MD MD rn [place], Alexandr RN RN la1 Dylan Brock RN RN jb4 Corrections: (The following items were deleted from the chart) 03/28 21:18 20:51 03/28/2018 20:51 Discharged to Home. Impression: 15 weeks gestation of . jb4 Condition is Stable. Forms are Medication Reconciliation Form, Thank You Letter, Antibiotic Education, Prescription Opioid Use. Follow up: Emergency Department; When: As needed; Reason: Worsening of condition. Follow up: Private Physician; When: 2 - 3 days; Reason: Recheck today's complaints, Continuance of care, Re-evaluation by your physician. kb
--- NOTE | 2018-03-28 20:52 | ER ---
Nurse's Notes [facility] Name: Harriett Gillette Age: 27 yrs Sex: Female : 1990 Arrival Date: 03/28/2018 Time: 18:10 Bed 19 Private MD: None, None Diagnosis: 15 weeks gestation of Presentation: 03/28 18:12 Presenting complaint: Patient states: I went to get a refill on my control on laFriday and they did a UPT and it was positive. Today I started having really bad cramping and having spotting. I put a tampon in even though I know I am not supposed to. Transition of care: patient was not received from another setting of care. Onset of symptoms was March 28, 2018. Risk Assessment: Do you want to hurt yourself or someone else? Patient reports no desire to harm self or others. Initial Sepsis Screen: Does the patient meet any 2 criteria? No. Patient's initial sepsis screen is negative. Does the patient have a suspected source of infection? No. Patient's initial sepsis screen is negative. Care prior to arrival: None. 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 - Social history:: Smoking status: Patient uses tobacco products, smokes one-half pack cigarettes per day. - Ebola Screening: : No symptoms or risks identified at this time. Screenin:41 Abuse screen: Denies threats or abuse. Nutritional screening: No deficits noted. em Tuberculosis screening: No symptoms or risk factors identified. Fall Risk None identified. Assessment: 18:42 General: Appears in no apparent distress. comfortable, Behavior is calm, cooperative, em Denies fever. Pain: Complains of pain in right inguinal area and left inguinal area Pain currently is 5 out of 10 on a pain scale. Neuro: Level of Consciousness is awake, alert, obeys commands, Oriented to person, place, time, situation. Cardiovascular: Capillary refill < 3 seconds Patient's skin is warm and dry. Respiratory: Airway is patent Respiratory effort is even, unlabored, Respiratory pattern is regular, symmetrical. GI: Abdomen is flat, Abd is soft and non tender X 4 quads. Patient currently denies nausea, vomiting. : Urine is clear, Reports vaginal bleeding that is spotty. EENT: No signs and/or symptoms were reported regarding the EENT system. Derm: Skin is intact, is healthy with good turgor, Skin is pink, warm \T\ dry. Musculoskeletal: Range of motion: intact in all extremities. 19:00 Obstetrical Assessment: General assessment: awake and alert, skin warm and dry. jb4 19:15 Reassessment: Patient appears in no apparent distress at this time. Patient and/or jb4 family updated on plan of care and expected duration. Pain level reassessed. Patient is alert, oriented x 3, equal unlabored respirations, skin warm/dry/pink. Pt complaining of pain, provider notified, see MAR for orders. 20:15 Reassessment: Patient appears in no apparent distress at this time. Patient and/or jb4 family updated on plan of care and expected duration. Pain level reassessed. Patient is alert, oriented x 3, equal unlabored respirations, skin warm/dry/pink. 21:15 Reassessment: Patient appears in no apparent distress at this time. Patient and/or jb4 family updated on plan of care and expected duration. Pain level reassessed. Patient is alert, oriented x 3, equal unlabored respirations, skin warm/dry/pink. Vital Signs: 18:14 BP 128 / 69; Pulse 114; Resp 18; Temp 97.4; Pulse Ox 99% on R/A; Weight 58.51 kg; la1 Height 5 ft. 1 in. (154.94 cm); 19:13 BP 107 / 68; Pulse 95; Resp 16; Pulse Ox 100% on R/A; jb4 20:30 BP 108 / 71; Pulse 76; Resp 18; Pulse Ox 100% on R/A; jb4 21:00 BP 116 / 82; Pulse 100; Resp 16; Pulse Ox 100% on R/A; jb4 18:14 Body Mass Index 24.37 (58.51 kg, 154.94 cm) la1 ED Course: 18:10 Patient arrived in ED. sb2 18:10 None, None is Private Physician. sb2 18:13 Triage completed. la1 18:14 Arm band placed on left wrist. la1 18:32 Elizabeth Donato FNP-C is [facility]. kb 18:32 Tripp Clark MD is Attending Physician. kb 18:33 Sage Patel LVN is Primary Nurse. em 18:41 Patient has correct armband on for positive identification. Placed in gown. Bed in low em position. Call light in reach. Side rails up X2. Adult w/ patient. Pulse ox on. NIBP on. Warm blanket given. 18:41 Initial lab(s) drawn, by me, sent to lab. Urine collected: clean catch specimen, clear. em Inserted saline lock: 22 gauge in right forearm, using aseptic technique. Blood collected. 21:11 US Transvaginal Ob In Process Unspecified. EDMS 21:16 No provider procedures requiring assistance completed. IV discontinued, intact, jb4 bleeding controlled. Administered Medications: 19:20 Drug: Tylenol 1000 mg Route: PO; jb4 21:17 Follow up: Response: No adverse reaction; Pain is decreased jb4 Outcome: 20:51 Discharge ordered by . kb 21:16 Discharged to home ambulatory, with family. jb4 21:16 Condition: stable 21:16 Discharge instructions given to patient, family, Instructed on discharge instructions, follow up and referral plans. Demonstrated understanding of instructions, follow-up care. 21:18 Patient left the ED. jb4 Signatures: Dispatcher [employer] EDRI Elizabeth Donato FNP-C FNP-Sage Lizarraga LVN LVN em Alexandr Duncan RN RN la1 Dylan Brock RN RN jb4 Alana Aponte 2
--- NOTE | 2018-03-29 08:44 | RAD REPORT ---
EXAM DESCRIPTION: US - Transvaginal OB - 03/28/2018 9:11 pm CLINICAL HISTORY: Pelvic pain, Preliminary findings provided at the time of the study. COMPARISON: None. FINDINGS: A single gestation is identified. No anatomic abnormality identifiable. Heart rate normal. Anatomic assessment is limited at this early gestational age. Anatomy is as expected for 15 weeks ag e. measurements are as follows: BPD:2.97 Centimeters 15 weeks 3 days HC:11.41 Centimeters 15 weeks 4 days AC:9.32 Centimeters 15 weeks 3 days HL:1.88 Centimeters 15 weeks 3 days FL:1.79 Centimeters 15 weeks 2 days The estimated gestational age (EGA) is 15 weeks 3 days with an KELLIE of 09/16/2018. ratios are n ormal or within acceptable limits. The placenta is grade 0, anterior in location. Placenta is low lyi ng approximately 12-14 mm from the closed internal os. No abruption or focal placental abnormality. T he amniotic fluid volume is normal. No maternal adnexal abnormality. IMPRESSION: 1. Single gestation with an EGA of 15 weeks 3 days and an KELLIE of the 09/16/2018. 2. No abnormalities are identifiable at this early age. ratios are normal or within accep table limits. Anatomy is as expected for 15 weeks. 3. Grade 0, anterior placenta with low-lying placenta. This can be monitored on follow-up imaging to assess for the usual superior migration with uterine growth. 4. Amniotic fluid volume is normal.
== END 2018-03-28 21:18 | disposition home or self-care (01) ==
LOC: ER 18:06
DX: O46.92 Antepartum hemorrhage, unspecified, second trimester (principal); O99.332 Smoking (tobacco) complicating pregnancy, second trimester; F17.210 Nicotine dependence, cigarettes, uncomplicated; Z3A.15 15 weeks gestation of pregnancy
CPT/HCPCS: 36415; 76817; 80048; 81003; 81025; 84702; 85025; 86900; 86901; 99284

== ENCOUNTER 2018-05-02 23:44 | Emergency (ER) | payer OTHER ==
--- OUTSIDE RECORDS SUMMARY | 2018-05-02 23:47 | XMS REPORT ---
:1990 [facility] Address [address] [place] [address] Dr. Calero [address] [place] [id number] Care Team Providers Name Role Phone Unavailable Unavailable Unavailable Problems This patient has no known problems. Allergies, Adverse Reactions, Alerts This patient has no known allergies or adverse reactions. Medications This patient has no known medications.
[2018-05-03] MEDS ORDERED: CETIRIZINE HCL 5 MG TABLET ONE (00:39)
[2018-05-03] MEDS ORDERED: OSELTAMIVIR 75 MG CAP ONE (00:39)
--- NOTE | 2018-05-03 01:55 | EDPHYS ---
Physician Documentation [facility] Name: Harriett Gillette Age: 27 yrs Sex: Female : 1990 Arrival Date: 05/02/2018 Time: 23:45 Bed 17 Private MD: ED Physician Tee Bustillos HPI: 05/03 00:15 This 27 yrs old Female presents to ER via Ambulatory with complaints of Flu snw Symptoms, Fever - 21 wks preg. 00:15 Onset: The symptoms/episode began/occurred suddenly, 1 day(s) ago, and became snw persistent. Associated signs and symptoms: Pertinent positives: congestion, cough, fever, nasal discharge, sore throat. Modifying factors: The patient symptoms are alleviated by nothing. It is unknown whether or not the patient has had similar symptoms in the past. It is unknown whether or not the patient has recently seen a physician. sees Dr. Moreno, no vaginal bleeding, no vaginal discharge. 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 - Social history:: Smoking status: Patient/guardian denies using tobacco, never smoked. - Ebola Screening: : No symptoms or risks identified at this time. ROS: 00:15 Eyes: Negative for injury, pain, redness, and discharge. snw 00:15 Neck: Negative for injury, pain, and swelling, Cardiovascular: Negative for chest pain, palpitations, and edema. 00:15 Abdomen/GI: Negative for abdominal pain, nausea, vomiting, diarrhea, and constipation, Back: Negative for injury and pain, : Negative for injury, bleeding, discharge, and swelling, MS/Extremity: Negative for injury and deformity, Skin: Negative for injury, rash, and discoloration, Neuro: Negative for headache, weakness, numbness, tingling, and seizure, Allergy/Immunology: Negative for hives, rash, and allergies. 00:15 Constitutional: Positive for body aches, chills, fatigue, fever, malaise, poor PO intake. 00:15 ENT: Positive for nasal discharge. 00:15 Respiratory: Positive for cough. Exam: 00:14 Head/Face: Normocephalic, atraumatic. Eyes: Pupils equal round and reactive to light, snw extra-ocular motions intact. Lids and lashes normal. Conjunctiva and sclera are non-icteric and not injected. Cornea within normal limits. Periorbital areas with no swelling, redness, or edema. 00:14 Neck: Trachea midline, no thyromegaly or masses palpated, and no cervical lymphadenopathy. Supple, full range of motion without nuchal rigidity, or vertebral point tenderness. No Meningismus. Chest/axilla: Normal chest wall appearance and motion. Nontender with no deformity. No lesions are appreciated. 00:14 Back: No spinal tenderness. No costovertebral tenderness. Full range of motion. 00:14 Skin: Warm, dry with normal turgor. Normal color with no rashes, no lesions, and no evidence of cellulitis. MS/ Extremity: Pulses equal, no cyanosis. Neurovascular intact. Full, normal range of motion. Neuro: Awake and alert, GCS 15, oriented to person, place, time, and situation. Cranial nerves II-XII grossly intact. Motor strength 5/5 in all extremities. Sensory grossly intact. Cerebellar exam normal. Normal gait. Psych: Awake, alert, with orientation to person, place and time. Behavior, mood, and affect are within normal limits. 00:14 Constitutional: The patient appears alert, awake, febrile, restless, uncomfortable. 00:14 ENT: External ear(s): are unremarkable, Ear canal(s): are normal, TM's: are normal, Nose: nasal drainage, that is moderate, that is profuse, and is seen coming from both nares, that is clear, Mouth: is normal, Posterior pharynx: is normal, Voice: is normal. 00:14 Cardiovascular: Rate: tachycardic, Rhythm: regular, Pulses: no pulse deficits are appreciated, Edema: is not appreciated. 00:14 Abdomen/GI: Inspection: gravid appearance, is noted. Vital Signs: 00:00 BP 119 / 79; Pulse 127; Resp 20 S; Temp 101.3(O); Pulse Ox 100% on R/A; Weight 60.33 kg cc3 (R); Height 5 ft. 11 in. (180.34 cm) (R); 01:55 BP 104 / 67; Pulse 119; Resp 20 S; Temp 101.8(O); Pulse Ox 97% on R/A; cc3 00:00 Body Mass Index 18.55 (60.33 kg, 180.34 cm) cc3 MDM: 00:08 Patient medically screened. snw 02:00 Data reviewed: vital signs, nurses notes. Data interpreted: Pulse oximetry: on room air snw is 97 %. Counseling: I had a detailed discussion with the patient and/or guardian regarding: the historical points, exam findings, and any diagnostic results supporting the discharge/admit diagnosis, the need for outpatient follow up, to return to the emergency department if symptoms worsen or persist or if there are any questions or concerns that arise at home. Special discussion: Based on the history and exam findings, there is no indication for further emergent testing or inpatient evaluation. I discussed with the patient/guardian the need to see the OB Gyne specialist for further evaluation of the symptoms. I discussed with the patient/guardian the need to see the primary care provider for further evaluation of the symptoms. 05/03 00:14 Order name: Flu; Complete Time: 01:52 snw 05/03 02:00 Order name: Recheck VS; Complete Time: 02:02 snw Administered Medications: 00:35 Drug: Tamiflu 75 mg Route: PO; cc3 01:00 Follow up: Response: No adverse reaction cc3 00:35 Drug: ZyrTEC - Cetirizine 10 mg Route: PO; cc3 01:00 Follow up: Response: No adverse reaction cc3 Disposition: 06:29 Co-signature as Attending Physician, Tee Bustillos MD Available for consultation at ps1 all times . Disposition: 05/03/18 01:54 Discharged to Home. Impression: Influenza due to other identified influenza virus - B. - Condition is Stable. - Discharge Instructions: Fever, Adult, Influenza, Adult, Rehydration, Adult. - Prescriptions for Tamiflu 75 mg Oral Capsule - take 1 capsule by ORAL route every 12 hours for 5 days; 10 capsule. - Medication Reconciliation Form, Thank You Letter, Antibiotic Education, Prescription Opioid Use form. - Follow up: Private Physician; When: 2 - 3 days; Reason: Recheck today's complaints, Continuance of care, Re-evaluation by your physician. Follow up: Emergency Department; When: As needed; Reason: Worsening of condition. Signatures: Dispatcher [employer] EDMS Sari Cortez, ENROLLMENT SERVICES VICE PRESIDENT-C ENROLLMENT SERVICES VICE PRESIDENT-Csnw Tee Bustillos MD MD ps1 Cordel, Charlene cc3 Corrections: (The following items were deleted from the chart) 02:14 01:54 05/03/2018 01:54 Discharged to Home. Impression: Influenza due to other cc3 identified influenza virus - B. Condition is Stable. Forms are Medication Reconciliation Form, Thank You Letter, Antibiotic Education, Prescription Opioid Use. Follow up: Private Physician; When: 2 - 3 days; Reason: Recheck today's complaints, Continuance of care, Re-evaluation by your physician. Follow up: Emergency Department; When: As needed; Reason: Worsening of condition. snw
--- NOTE | 2018-05-03 01:55 | ER ---
Nurse's Notes [facility] Name: Harriett Gillette Age: 27 yrs Sex: Female : 1990 Arrival Date: 05/02/2018 Time: 23:45 Bed 17 Private MD: Diagnosis: Influenza due to other identified influenza virus-B Presentation: 05/03 00:00 Presenting complaint: Patient states: fever and flu symptoms since Friday. Transition cc3 of care: patient was not received from another setting of care. Onset of symptoms was May 01, 2018. Risk Assessment: Do you want to hurt yourself or someone else? Patient reports no desire to harm self or others. Initial Sepsis Screen: Does the patient meet any 2 criteria? Temp <36.0*C (96.8*F)) or > 38.3*C (100.9*F). HR > 90 bpm. Does the patient have a suspected source of infection? No. Patient's initial sepsis screen is negative. Care prior to arrival: None. 00:00 Method Of Arrival: Ambulatory cc3 00:00 Acuity: TIFFANIE 3 cc3 Triage Assessment: 00:00 General: Appears in no apparent distress. uncomfortable, Behavior is calm, cooperative, cc3 appropriate for age. Pain: Complains of pain in generalized acute body pain. EENT: No signs and/or symptoms were reported regarding the EENT system. Neuro: Level of Consciousness is awake, alert, obeys commands, Oriented to person, place, time, situation, Appropriate for age. Cardiovascular: Patient's skin is warm and dry. Respiratory: Airway is patent Respiratory effort is even, unlabored, Respiratory pattern is regular, symmetrical. GI: Abdomen is round patient 20 weeks . : No signs and/or symptoms were reported regarding the genitourinary system. Derm: No signs and/or symptoms reported regarding the dermatologic system. Musculoskeletal: Circulation, motion, and sensation intact. Range of motion: intact in all extremities. 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 - Social history:: Smoking status: Patient/guardian denies using tobacco, never smoked. - Ebola Screening: : No symptoms or risks identified at this time. Screenin:00 Abuse screen: Denies threats or abuse. Denies injuries from another. Nutritional cc3 screening: No deficits noted. Tuberculosis screening: No symptoms or risk factors identified. Fall Risk Ambulatory Aid- None/Bed Rest/Nurse Assist (0 pts). Gait- Normal/Bed Rest/Wheelchair (0 pts) Mental Status- Oriented to own ability (0 pts). Assessment: 00:00 General: see triage assessment. cc3 01:45 Reassessment: Patient appears in no apparent distress at this time. Patient and/or cc3 family updated on plan of care and expected duration. Pain level reassessed. Patient is alert, oriented x 3, equal unlabored respirations, skin warm/dry/pink. 02:05 Reassessment: Patient appears in no apparent distress at this time. Patient and/or cc3 family updated on plan of care and expected duration. Pain level reassessed. Patient is alert, oriented x 3, equal unlabored respirations, skin warm/dry/pink. LOGAN Guo discharged the patient home with prescription given. No IV cannula in situ. Patient left ER vitally stable and ambulatory. Vital Signs: 00:00 BP 119 / 79; Pulse 127; Resp 20 S; Temp 101.3(O); Pulse Ox 100% on R/A; Weight 60.33 kg cc3 (R); Height 5 ft. 11 in. (180.34 cm) (R); 01:55 BP 104 / 67; Pulse 119; Resp 20 S; Temp 101.8(O); Pulse Ox 97% on R/A; cc3 00:00 Body Mass Index 18.55 (60.33 kg, 180.34 cm) cc3 ED Course: 05/02 23:45 Patient arrived in ED. am2 23:46 [facility] Cortez [facility]-C [facility] snw 23:46 Tee Bustillos MD is Attending Physician. snw 23:58 Miguelina Varghese is Primary Nurse. cc3 05/03 00:00 Arm band placed on right wrist. Patient notified of wait time. cc3 00:00 Patient has correct armband on for positive identification. Bed in low position. Call cc3 light in reach. Side rails up X 1. Pulse ox on. NIBP on. 00:10 Triage completed. cc3 02:05 No provider procedures requiring assistance completed. Patient did not have IV access cc3 during this emergency room visit. Administered Medications: 00:35 Drug: Tamiflu 75 mg Route: PO; cc3 01:00 Follow up: Response: No adverse reaction cc3 00:35 Drug: ZyrTEC - Cetirizine 10 mg Route: PO; cc3 01:00 Follow up: Response: No adverse reaction cc3 Outcome: 01:54 Discharge ordered by MD. krishnamurthy 02:05 Discharged to home ambulatory. cc3 02:05 Condition: stable 02:05 Discharge instructions given to patient, Instructed on discharge instructions, follow up and referral plans. medication usage, Demonstrated understanding of instructions, follow-up care, medications, Prescriptions given X 1. 02:14 Patient left the ED. cc3 Signatures: Sari Cortez, DENTAL APPLIANCE FIXER-C DENTAL APPLIANCE FIXER-Csnw Mayte Vidal am2 Miguelina Varghese cc3 Corrections: (The following items were deleted from the chart) 02:01 01:45 BP 104 / 67; Pulse 119bpm; Resp 20bpm; Spontaneous; Pulse Ox 97% RA; cc3 cc3 02:03 01:45 BP 104 / 67; Pulse 119bpm; Resp 20bpm; Spontaneous; Pulse Ox 97% RA; Temp 101.8F cc3 Oral; cc3
== END 2018-05-03 02:14 | disposition home or self-care (01) ==
LOC: ER 23:44
DX: J10.1 Influenza due to other identified influenza virus with other respiratory manifestations (principal); Z3A.20 20 weeks gestation of pregnancy; Z88.5 Allergy status to narcotic agent
CPT/HCPCS: 87804; 99283

== ENCOUNTER 2018-06-04 21:44 | Emergency (ER) | payer OTHER ==
--- OUTSIDE RECORDS SUMMARY | 2018-06-04 21:46 | XMS REPORT ---
:1990 [facility] Address [address] [place] [address] Dr. Calero [address] [place] [id number] Care Team Providers Name Role Phone Unavailable Unavailable Unavailable Problems This patient has no known problems. Allergies, Adverse Reactions, Alerts This patient has no known allergies or adverse reactions. Medications This patient has no known medications.
[2018-06-04 22:22] LABS: Urine Blood NEGATIVE (NEG); Urine Glucose 2+ (NEG)
[2018-06-04 22:23] LABS: Urine Protein NEGATIVE (NEG); Urine pH 5.5 (5.0-7.0)
[2018-06-04 23:28] LABS: Potassium 3.9 mmol/L (3.5-5.1)
--- NOTE | 2018-06-04 23:30 | ER ---
Nurse's Notes [facility] Name: Harriett Gillette Age: 27 yrs Sex: Female : 1990 Arrival Date: 06/04/2018 Time: 21:45 Bed 5 Private MD: Michael Moreno B Diagnosis: Gestational Diabetes;Hyperglycemia Presentation: 06/04 22:02 Presenting complaint: Patient states: that her blood sugar 30 minutes after eating fc tonight was 389 then at [address] Moreno told her to come to ER if greater that 300. Pt is 25 weeks preg. Transition of care: patient was not received from another setting of care. Onset of symptoms was June 04, 2018. Risk Assessment: Do you want to hurt yourself or someone else? Patient reports no desire to harm self or others. Initial Sepsis Screen: Does the patient meet any 2 criteria? HR > 90 bpm. Yes Does the patient have a suspected source of infection? No. Patient's initial sepsis screen is negative. Care prior to arrival: None. 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 - Social history:: Smoking status: Patient/guardian denies using tobacco, Patient/guardian denies using alcohol, street drugs. - Ebola Screening: : Patient negative for fever greater than or equal to 101.5 degrees Fahrenheit, and additional compatible Ebola Virus Disease symptoms Patient denies exposure to infectious person Patient denies travel to an Ebola-affected area in the 21 days before illness onset. Screenin:05 Abuse screen: Denies threats or abuse. Nutritional screening: No deficits noted. fc Tuberculosis screening: No symptoms or risk factors identified. Fall Risk None identified. Assessment: 23:00 General: Appears in no apparent distress. comfortable, Behavior is calm, cooperative, tl2 appropriate for age. Pain: Denies pain. Neuro: Level of Consciousness is awake, alert, obeys commands, Oriented to person, place, time, situation. Cardiovascular: Denies chest pain. Respiratory: Airway is patent Respiratory effort is even, unlabored, Respiratory pattern is regular, symmetrical. GI: No signs and/or symptoms were reported involving the gastrointestinal system. : No signs and/or symptoms were reported regarding the genitourinary system. Derm: No signs and/or symptoms reported regarding the dermatologic system. 23:46 Reassessment: Patient appears in no apparent distress at this time. Patient and/or tl2 family updated on plan of care and expected duration. Pain level reassessed. Patient is alert, oriented x 3, equal unlabored respirations, skin warm/dry/pink. pt verbalized understanding of discharge instructions, need for follow up. Pt has appointment tomorrow. Vital Signs: 22:02 BP 114 / 69; Pulse 94; Resp 18; Temp 98.9(O); Pulse Ox 99% on R/A; Weight 60.78 kg (R); fc Height 5 ft. 0 in. (152.40 cm) (R); Pain 0/10; 23:46 BP 115 / 75; Pulse 93; Resp 18; Pulse Ox 100% on R/A; tl2 22:02 Body Mass Index 26.17 (60.78 kg, 152.40 cm) fc ED Course: 21:45 Patient arrived in ED. am2 21:45 Michael Moreno MD is Private Physician. am2 22:02 Arm band placed on Patient placed in an exam room, on a stretcher. fc 22:03 Triage completed. fc 22:05 Patient has correct armband on for positive identification. Placed in gown. Bed in low fc position. Call light in reach. 22:15 Tee Bustillos MD is Attending Physician. ps1 22:35 Megan Walters RN is Primary Nurse. tl2 23:16 Inserted saline lock: 22 gauge in left antecubital area, using aseptic technique. Blood tl2 collected. 23:29 Michael Moreno MD is Referral Physician. ps1 23:46 No provider procedures requiring assistance completed. IV discontinued, intact, tl2 bleeding controlled, No redness/swelling at site. Pressure dressing applied. Administered Medications: No medications were administered Point of Care Testing: Blood Glucose: 22:20 Blood Glucose: 315 mg/dL; ag4 Ranges: Outcome: 23:29 Discharge ordered by . ps1 23:46 Discharged to home ambulatory. tl2 23:46 Condition: stable 23:46 Discharge instructions given to patient, Instructed on discharge instructions, follow up and referral plans. Demonstrated understanding of instructions, follow-up care. 23:48 Patient left the ED. tl2 Signatures: Ariane Eaton, RN RN Megan Walters RN RN tl2 Mayte Vidal Phillip, MD MD ps1 Igor White ag4
--- NOTE | 2018-06-04 23:30 | EDPHYS ---
Physician Documentation [facility] Name: Harriett Gillette Age: 27 yrs Sex: Female : 1990 Arrival Date: 06/04/2018 Time: 21:45 Bed 5 Private MD: Michael Moreno B ED Physician Tee Bustillos HPI: 06/04 22:40 This 27 yrs old Female presents to ER via Ambulatory with complaints of High ps1 Blood Sugar - 25 wks preg. 22:40 \T\ 25 weeks previous GDM. Last complicated with IOL 2/2 decreased kidney ps1 function \T\34 weeks. Now presenting with asymptomatic hyperglycemia. Was recently tested for GDM and BS >500. Was prescribed glyburide 2.5 mg and checked BS after eating. Her BS was > 380 and then checked 30 min later and was >400 and was told to come to ED if >300. This was the first dose of the medication. Her BS has come down since presenting to ED. No VB, CTX, LOF, LOM.. 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 - Social history:: Smoking status: Patient/guardian denies using tobacco, Patient/guardian denies using alcohol, street drugs. - Ebola Screening: : Patient negative for fever greater than or equal to 101.5 degrees Fahrenheit, and additional compatible Ebola Virus Disease symptoms Patient denies exposure to infectious person Patient denies travel to an Ebola-affected area in the 21 days before illness onset. ROS: 22:40 Constitutional: Negative for fever, chills, and weight loss, Eyes: Negative for injury, ps1 pain, redness, and discharge, Cardiovascular: Negative for chest pain, palpitations, and edema, Respiratory: Negative for shortness of breath, cough, wheezing, and pleuritic chest pain, Abdomen/GI: Negative for abdominal pain, nausea, vomiting, diarrhea, and constipation, MS/Extremity: Negative for injury and deformity, Skin: Negative for injury, rash, and discoloration, Neuro: Negative for headache, weakness, numbness, tingling, and seizure. Exam: 22:40 Constitutional: This is a well developed, well nourished patient who is awake, alert, ps1 and in no acute distress. Head/Face: Normocephalic, atraumatic. Eyes: Pupils equal round and reactive to light, extra-ocular motions intact. Lids and lashes normal. Conjunctiva and sclera are non-icteric and not injected. ENT: Nares patent. No nasal discharge, no septal abnormalities noted. Tympanic membranes are normal and external auditory canals are clear. Oropharynx with no redness, swelling, or masses, exudates, or evidence of obstruction, uvula midline. Mucous membranes moist. Neck: Trachea midline, no thyromegaly or masses palpated, and no cervical lymphadenopathy. Supple, full range of motion without nuchal rigidity, or vertebral point tenderness. No Meningismus. Chest/axilla: Normal chest wall appearance and motion. Nontender with no deformity. No lesions are appreciated. Cardiovascular: Regular rate and rhythm. No gallops, murmurs, or rubs. Normal PMI, no JVD. No pulse deficits. Respiratory: Lungs have equal breath sounds bilaterally, clear to auscultation and percussion. No rales, rhonchi or wheezes noted. No increased work of breathing, no retractions or nasal flaring. MS/ Extremity: Pulses equal, no cyanosis. Neurovascular intact. Full, normal range of motion. Neuro: Awake and alert, GCS 15, oriented to person, place, time, and situation. Cranial nerves II-XII grossly intact. Sensory grossly intact. Psych: Awake, alert, with orientation to person, place and time. Behavior, mood, and affect are within normal limits. 22:40 Abdomen/GI: Inspection: gravid appearance, is noted, Bowel sounds: normal, Palpation: abdomen is soft and non-tender. Vital Signs: 22:02 BP 114 / 69; Pulse 94; Resp 18; Temp 98.9(O); Pulse Ox 99% on R/A; Weight 60.78 kg (R); fc Height 5 ft. 0 in. (152.40 cm) (R); Pain 0/10; 23:46 BP 115 / 75; Pulse 93; Resp 18; Pulse Ox 100% on R/A; tl2 22:02 Body Mass Index 26.17 (60.78 kg, 152.40 cm) MDM: 22:49 Patient medically screened. ps1 23:30 Data reviewed: vital signs, nurses notes, lab test result(s), and as a result, I will ps1 discharge patient. Counseling: I had a detailed discussion with the patient and/or guardian regarding: the historical points, exam findings, and any diagnostic results supporting the discharge/admit diagnosis, the need for outpatient follow up. ED course: BS improved with taking gyburide. Will have pt follow up with Dr. Moreno in am as previously scheduled. Diet precautions given. Consider medication modification if still elevated on recheck. . 06/04 22:17 Order name: Urine Dipstick--Ancillary (enter results); Complete Time: 22:35 cm6 06/04 22:17 Order name: Urine --Ancillary (enter results); Complete Time: 22:35 cm6 06/04 22:40 Order name: BMP; Complete Time: 23:28 ps1 Administered Medications: No medications were administered Point of Care Testing: Blood Glucose: 22:20 Blood Glucose: 315 mg/dL; ag4 Ranges: Critical Glucose Levels:Adult <50 mg/dl or >400 mg/dl <40 mg/dl or >180 mg/dl Disposition: 06/04/18 23:29 Discharged to Home. Impression: Gestational Diabetes, Hyperglycemia. - Condition is Stable. - Discharge Instructions: Gestational Diabetes Mellitus, Diagnosis, [id number], Gestational Diabetes Mellitus, Self Care. - Medication Reconciliation Form, Thank You Letter, Antibiotic Education, Prescription Opioid Use form. - Follow up: Michael Moreno MD; When: Tomorrow; Reason: Recheck today's complaints. Follow up: Emergency Department; When: As needed; Reason: Worsening of condition. - Problem is an ongoing problem. - Symptoms have improved. Signatures: Dispatcher [employer] Ariane Art RN RN Megan Walters RN RN tl2 Tee Bustillos MD MD ps1 Corrections: (The following items were deleted from the chart) 23:48 23:29 06/04/2018 23:29 Discharged to Home. Impression: Gestational Diabetes; tl2 Hyperglycemia. Condition is Stable. Forms are Medication Reconciliation Form, Thank You Letter, Antibiotic Education, Prescription Opioid Use. Follow up: Michael Moreno; When: Tomorrow; Reason: Recheck today's complaints. Follow up: Emergency Department; When: As needed; Reason: Worsening of condition. Problem is an ongoing problem. Symptoms have improved. ps1
== END 2018-06-04 23:48 | disposition home or self-care (01) ==
LOC: ER 21:44
DX: O24.415 Gestational diabetes mellitus in pregnancy, controlled by oral hypoglycemic drugs (principal); Z3A.25 25 weeks gestation of pregnancy; Z88.5 Allergy status to narcotic agent
CPT/HCPCS: 36415; 80048; 81003; 81025; 82962; 99283

== ENCOUNTER 2018-08-31 10:54 | Inpatient (IN) | payer OTHER ==
--- OUTSIDE RECORDS SUMMARY | 2018-08-31 10:57 | XMS REPORT ---
:1990 [facility] [address] [place] [address] Care Team Providers Name Role Phone Unavailable Unavailable Unavailable Payers Payer Name Policy Type Policy Number Effective Date Expiration Date Problems This patient has no known problems. Allergies, Adverse Reactions, Alerts Allergy Allergy Status Severity Reaction(s) Onset Inactive Treating Comments Name Type Date Date Clinician No Known DA Active U 2018-05 Allergies 00:00:0 0 Medications This patient has no known medications. Results Test Description Test Time Test Comments Text Results Atomic Results Result Comments GLUBED 2018-06-10 15:58:00 Test Item Value Reference Range Comments GLUBED (test code=GLUBED) 148 mg/dL 65-110 [id number] 10:51:00 Test Item Value Reference Range Comments GLUBED (test code=GLUBED) 174 mg/dL 65-110 [id number] 06:04:00 Test Item Value Reference Range Comments GLUBED (test code=GLUBED) 83 mg/dL 65-110 GLYCOSYLATED HEMOGLOBIN [id number] 04:40:00 Test Item Value Reference Range Comments GLYCOSYLATED HEMOGLOBIN 8.2 % 4.8-5.9 Any condition that shortens (HA1C) (test code=GLYHGB) erythocyte survival or decreasesmean erythrocyte age (e.g., recovery from acute blood loss,hemolytic anemia) will falsely lower HGBA1c resultsregardless of the method used. HGBA1c results from patientswith HbSS, HbCC, and HbSc must be interpreted with cautiongiven the pathological processes, including anemia,increased red cell turnover, transfusion requirements, thatadversely impact HGBA1c as a marker of long-term glycemiccontrol. Alternative forms of testing such as fructosamineshould be considered for these patients. MEAN BLOOD GLUCOSE (test 189 MG/DL 70-110 code=MBG) COMPREHENSIVE METABOLIC [id number] 04:40:00 Test Item Value Reference Range Comments SODIUM (test code=NA) 135 mEq/L 135-145 POTASSIUM (test code=K) 4.0 mEq/L 3.5-5.0 CHLORIDE (test code=CL) 101 mEq/L 100-115 CARBON DIOXIDE (test code=CO2) 21 mEq/L 22-31 ANION GAP (test code=GAP) 16.70 10-20 GLUCOSE (test code=GLU) 176 mg/dL 65-110 BLOOD UREA NITROGEN (test code=BUN) 10 mg/dL 7-18 GLOMERULAR FILTRATION RATE (test code=GFR) 100 ml/min >60 CREATININE (test code=CREAT) 0.7 mg/dL 0.5-1.0 TOTAL PROTEIN (test code=PROT) 6.3 gm/dL 6.3-8.2 ALBUMIN (test code=ALB) 2.7 gm/dL 3.4-4.8 CALCIUM (test code=CA) 8.6 mg/dL 8.4-10.2 BILIRUBIN TOTAL (test code=BILT) 0.2 mg/dL 0.2-1.0 SGOT/AST (test code=AST) 11 units/L 15-37 SGPT/ALT (test code=ALT) 10 units/L 12-78 ALKALINE PHOSPHATASE TOTAL (test code=ALKP) 78 units/L 46-116 GLYCOSYLATED HEMOGLOBIN (HA1C)2018-06-10 04:40:00 Test Item Value Reference Range Comments GLYCOSYLATED HEMOGLOBIN 8.2 % 4.8-5.9 Any condition that shortens (HA1C) (test code=GLYHGB) erythocyte survival or decreasesmean erythrocyte age (e.g., recovery from acute blood loss,hemolytic anemia) will falsely lower HGBA1c resultsregardless of the method used. HGBA1c results from patientswith HbSS, HbCC, and HbSc must be interpreted with cautiongiven the pathological processes, including anemia,increased red cell turnover, transfusion requirements, thatadversely impact HGBA1c as a marker of long-term glycemiccontrol. Alternative forms of testing such as fructosamineshould be considered for these patients. [id number] 00:14:00 Test Item Value Reference Range Comments GLUBED (test code=GLUBED) 194 mg/dL 65-110 COMPREHENSIVE METABOLIC [id number] 21:06:00 Test Item Value Reference Range Comments SODIUM (test code=NA) 135 mEq/L 135-145 POTASSIUM (test code=K) 4.0 mEq/L 3.5-5.0 CHLORIDE (test code=CL) 101 mEq/L 100-115 CARBON DIOXIDE (test code=CO2) 21 mEq/L 22-31 ANION GAP (test code=GAP) 16.70 10-20 GLUCOSE (test code=GLU) 176 mg/dL 65-110 BLOOD UREA NITROGEN (test code=BUN) 10 mg/dL 7-18 GLOMERULAR FILTRATION RATE (test code=GFR) 100 ml/min >60 CREATININE (test code=CREAT) 0.7 mg/dL 0.5-1.0 TOTAL PROTEIN (test code=PROT) 6.3 gm/dL 6.3-8.2 ALBUMIN (test code=ALB) 2.7 gm/dL 3.4-4.8 CALCIUM (test code=CA) 8.6 mg/dL 8.4-10.2 BILIRUBIN TOTAL (test code=BILT) 0.2 mg/dL 0.2-1.0 SGOT/AST (test code=AST) 11 units/L 15-37 SGPT/ALT (test code=ALT) 10 units/L 12-78 ALKALINE PHOSPHATASE TOTAL (test code=ALKP) 78 units/L 46-116 GLYCOSYLATED HEMOGLOBIN (HA1C)2018-06-09 21:06:00 Test Item Value Reference Range Comments GLYCOSYLATED HEMOGLOBIN (HA1C) (test code=GLYHGB) CBC W/AUTO [id number] 20:53:00 Test Item Value Reference Range Comments WHITE BLOOD CELL (test code=WBC) 8.6 K/mm3 6.6-12.1 RED BLOOD CELL (test code=RBC) 3.32 M/mm3 3.45-5.01 HEMOGLOBIN (test code=HGB) 9.3 g/dL 10.7-13.9 HEMATOCRIT (test code=HCT) 28.4 % 32.1-42.1 MEAN CELL VOLUME (test code=MCV) 86 fL 84.1-94.8 MEAN CELL HGB (test code=MCH) 28.0 pg 27-35 MEAN CELL HGB CONCETRATION (test code=MCHC) 32.7 gm/dL 32.2-34.1 RED CELL DISTRIBUTION WIDTH (test code=RDW) 13.3 % 12.4-16.5 PLATELET COUNT (test code=PLT) 360 K/mm3 133-385 IMMATURE PLATELET FRACTION (test code=IPF) 2.9 % 0.0-10.8 MEAN PLATELET VOLUME (test code=MPV) 10.5 fl 9.1-12.7 NEUTROPHIL % (test code=NT%) 63.4 % 56.5-79.4 LYMPHOCYTE % (test code=LY%) 26.6 % 14.3-34.3 MONOCYTE % (test code=MO%) 8.0 % 5.1-10.4 EOSINOPHIL % (test code=EO%) 1.2 % 0.1-3.0 BASOPHIL % (test code=BA%) 0.5 % 0.1-1.0 NEUTROPHIL # (test code=NT#) 5.5 K/mm3 LYMPHOCYTE # (test code=LY#) 2.3 K/mm3 MONOCYTE # (test code=MO#) 0.7 K/mm3 EOSINOPHIL # (test code=EO#) 0.10 K/mm3 BASOPHIL # (test code=BA#) 0.0 K/mm3 RBC MORPHOLOGY REQUIRED (test code=RBCM) NORMAL NORMAL PLATELET MORPHOLOGY REQUIRED (test code=PLTMR) NORMAL NORMAL URINALYSIS [id number] 20:08:00 Test Item Value Reference Range Comments UA COLOR (test code=COLU) YELLOW YELLOW UA APPEARANCE (test code=APPU) CLEAR CLEAR UA GLUCOSE DIPSTICK (test code=DGLUU) 3+ NEGATIVE UA BILIRUBIN DIPSTICK (test code=BILU) NEGATIVE NEGATIVE UA KETONE DIPSTICK (test code=KETU) TRACE NEGATIVE UA SPECIFIC GRAVITY (test code=SGU) 1.020 1.001-1.035 UA BLOOD DIPSTICK (test code=RANDI) NEG NEGATIVE UA PH DIPSTICK (test code=MANOLO) 6.0 5-9 UA PROTEIN DIPSTICK (test code=PROU) NEGATIVE NEGATIVE UA UROBILINIOGEN DIPSTICK (test code=URO) 0.2 EU/dL <=1.0 UA NITRITE DIPSTICK (test code=NARESH) NEGATIVE NEGATIVE UA LEUKOCYTE ESTERASE DIPSTICK (test code=LEUU) NEG NEGATIVE UA WBC (test code=WBCU) 2-5 #/hpf NONE SEEN UA RBC (test code=RBCU) 0-2 #/hpf NONE SEEN UA EPITHELIAL CELLS (test code=EPIU) FEW #/HPF RARE-FEW UA BACTERIA (test code=BACU) FEW #/hpf NONE SEEN URINE SAMPLE: CLEAN [id number] 20:01:00 Test Item Value Reference Range Comments GLUBED (test code=GLUBED) 196 mg/dL 65-110 URINALYSIS [id number] 19:53:00 Test Item Value Reference Range Comments UA COLOR (test code=COLU) YELLOW YELLOW UA APPEARANCE (test code=APPU) CLEAR CLEAR UA GLUCOSE DIPSTICK (test code=DGLUU) 3+ NEGATIVE UA BILIRUBIN DIPSTICK (test code=BILU) NEGATIVE NEGATIVE UA KETONE DIPSTICK (test code=KETU) TRACE NEGATIVE UA SPECIFIC GRAVITY (test code=SGU) 1.020 1.001-1.035 UA BLOOD DIPSTICK (test code=RANDI) NEG NEGATIVE UA PH DIPSTICK (test code=MANOLO) 6.0 5-9 UA PROTEIN DIPSTICK (test code=PROU) NEGATIVE NEGATIVE UA UROBILINIOGEN DIPSTICK (test code=URO) 0.2 EU/dL <=1.0 UA NITRITE DIPSTICK (test code=NARESH) NEGATIVE NEGATIVE UA LEUKOCYTE ESTERASE DIPSTICK (test code=LEUU) NEG NEGATIVE UA WBC (test code=WBCU) #/hpf NONE SEEN UA EPITHELIAL CELLS (test code=EPIU) #/HPF RARE-FEW URINE SAMPLE: CLEAN CATCH
[2018-08-31] MEDS ORDERED: BUTORPHANOL 1 MG/ML INJ IV PRN (11:23)
[2018-08-31] MEDS ORDERED: METHYLERGONOVINE 0.2MG/ML AMP IM PRN (11:23)
[2018-08-31] MEDS ORDERED: Ringers Lactate 1,000 ML IV PRN (11:23)
[2018-08-31] MEDS ORDERED: MEPERIDINE HCL 25 MG/0.5 ML IV PRN (11:23)
[2018-08-31] MEDS ORDERED: CARBOPROST TROME 250 MCG/ML IM PRN (11:23)
[2018-08-31] MEDS ORDERED: PROMETHAZINE 25 MG/ML VIAL IM PRN (11:23)
[2018-08-31] MEDS ORDERED: FENTANYL CITR 100 MCG/2 ML IV ONE ×3 (11:58→13:14)
[2018-08-31] MEDS ORDERED: ROPIVACAINE HCL 100 ML IV PRN (11:58)
[2018-08-31] MEDS ORDERED: ROPIVACAINE HCL 0.2% 20ML AMP IV SCH (12:00)
[2018-08-31] MEDS ORDERED: Ringers Lactate 1,000 ML IV SCH (12:00)
[2018-08-31] MEDS ORDERED: OXYTOCIN/LR 20 UNIT/1,000 ML BAG IV SCH (12:00)
[2018-08-31 12:16] LABS: RPR Titer ND
[2018-08-31 12:20] LABS: Absolute Lymphocytes (CBC) 2.3 K/uL (0.7-4.9); Basophils % 1.3 % (0-1.3); Eosinophils % 0.6 % (0-4.4); Hematocrit 30.3 % (36.0-45.0); Lymphocytes % 23.8 % (15.3-44.8); MPV 9.9 fL (7.6-11.3); Monocytes % 5.3 % (3.3-12.3); RBC Red Blood Cell Count 4.09 M/uL (3.86-4.86)
[2018-08-31 12:28] LABS: Urine Appearance CLEAR; Urine Bilirubin NEGATIVE (NEG); Urine Blood NEGATIVE (NEG); Urine Color YELLOW; Urine Glucose 1+ (NEG); Urine Protein 2+ (NEG)
[2018-08-31 12:44] LABS: Urine Microscopic Reflex ORDER UMIC
[2018-08-31 13:07] LABS: Urine Bacteria 20-50 /HPF (<20); Urine Culture Reflex Order REFLEXED; Urine RBC NONE SEEN /HPF (NONE SEEN)
[2018-08-31] MEDS ORDERED: Oxycodone HCl/Acetaminophen 1 TAB TAB PO PRN ×2 (14:06)
[2018-08-31] MEDS ORDERED: DOCUSATE NA/SENNA CONC 1 TAB PO PRN (14:06)
[2018-08-31] MEDS ORDERED: ACETAMINOPHEN 500 MG TAB PO PRN (14:06)
[2018-08-31] MEDS ORDERED: DIPHENHYDRAMINE 25 MG TAB/CAP PO PRN (14:06)
[2018-08-31] MEDS ORDERED: BISACODYL 10 MG RECTAL SUPP RECT PRN (14:06)
--- NOTE | 2018-08-31 14:47 | OP ---
Surgeon: Michael Moreno MD This is a 27-year-old 2, para 1, 37 weeks 5 days, followed antepartum and consultation with Chanelle Bojorquez, High-Brewing Technician in [place] for diabetes, recommended delivery at 38 weeks, which is p lanned for later in the week. Patient came in my office in active advancing labor, noted to be 7 to 8 cm in the office, sent over to labor and delivery. IV started at her request. Epidural anesthesia was started, had to be supplemented but worked very well thereafter, second stage of 15 to 20 minute s. Spontaneous vaginal delivery of an 8 pound 2 ounce male , Apgars 7 and 8. No episiotomy. No laceration. Schultze delivery of the placenta, which was noted to be intact but highly calcified and weeks. Estimated blood loss 250 cc. Rh positive, immune to Rubella. Negative beta s trep screen. Tolerated all procedures well. Final Diagnoses: Term intrauterine 37 weeks 5 days, gestational diabetes, consultation wit h Dr. Bojorquez, [place] [facility], spontaneous labor, vaginal delivery, epidural anesthesia. HUMA/MODL Voice ID: [id number] Report ID: [id number]
[2018-08-31] MEDS ORDERED: HYDRALAZINE HCL 20 MG/ML VIAL IV ONE (16:10)
[2018-08-31] MEDS ORDERED: D50W 25 GM/50 ML SYRINGE IV PRN (16:12)
[2018-08-31] MEDS ORDERED: GLUCAGON 1 MG/VIAL IM PRN (16:12)
[2018-08-31] MEDS ORDERED: HYDRALAZINE HCL 20 MG/ML VIAL ONE (16:14)
[2018-08-31] MEDS ORDERED: OXYTOCIN/LR 20 UNIT/1,000 ML BAG IV ONE (16:18)
[2018-08-31] MEDS: OXYTOCIN/LR 20 UNIT/1,000 ML BAG IV SCH (16:20)
[2018-08-31] MEDS: INSULIN -REGULAR HUMAN 50 UNIT/0.5 ML ML SQ SCH (16:38)
[2018-08-31] MEDS ORDERED: CEFTRIAXONE 1 GM/NS 50 ML 1 GM/50 ML BAG IV SCH (17:09)
[2018-08-31] MEDS ORDERED: CEFTRIAXONE/SWI 1gm 1 GM/10 ML SYR IV SCH (17:30)
[2018-08-31] MEDS: IBUPROFEN 200 MG TAB PO PRN (17:45)
[2018-08-31 18:14] VITALS: BMI 27.0
[2018-08-31 21:52] LABS: RPR (Rapid Plasma Reagin) NON-REACT (NON-REACT)
--- NOTE | 2018-08-31 22:08 | CON ---
Date of Consultation: 08/31/2018 Reason For Consultation: Elevated blood sugar levels, hyperglycemia, gestational diabetes. History Of Present Illness: Patient is a 27-year-old female, 2, para 2, who had a natural de livery done today by Dr. Moreno. Patient does have gestational diabetes. She had diabetes with her f irst as well. Patient has been taking Humulin 20 units twice a day and Humalog 12 units in the morning and 16 units in the afternoon since her blood sugar levels have been fairly well control led. Patient's baby does have hypoglycemia with a sugar of less than 20. Patient herself denies any polyuria, polydipsia, or polyphagia. She does seem to have some tremors; however, is not hypoglycem ic. Patient's blood sugar level was found to be 170. Her other workup also revealed a positive UA a nd she is slightly anemic at hemoglobin of 9.6, down from 11 from her checkup. Consultation was sought for management of her diabetes. When the patient was seen in the L and D, she was awake, alert, oriented x3, in some mild distress. Past Medical History: Gestational diabetes. Surgical History: Appendectomy. Allergies: NO KNOWN DRUG ALLERGIES. Medications: List reviewed. Family History: Sister has type 1 diabetes. Social History: Patient denies any tobacco use, alcohol use, or illicit drug use. Review of Systems: Eleven-point system reviewed, negative except as per HPI. Physical Examination: VITAL SIGNS: Stable. Afebrile. GENERAL: Awake, alert, oriented x3, in some mild distress. HEENT: Normocephalic, atraumatic. PERRLA. EOMI. Moist mucous membranes. Oropharynx is clear. Co njunctivae anicteric. NECK: Supple. No JVD. Trachea midline. CV: S1, S2. No murmurs. RESPIRATORY: Clear to auscultation bilaterally. No wheezing or stridor. No use of accessory muscle s. GASTROINTESTINAL: Abdomen is soft, nontender, nondistended. Positive bowel sounds. No guarding or rigidity. EXTREMITIES: No clubbing, cyanosis, or edema. No calf tenderness. NEURO: Cranial nerves 2 through 12 intact grossly. No focal neurological deficit. Speech is normal . Laboratory Data: WBC 9.9, H and H 9.6, 30.3, platelets 347, neutrophils 69%. UA shows negative nitr ite, 1+ leukocyte esterase, no rbcs, greater than 50 wbcs, 20-50 bacteria. RPR and hepatitis B pendi ng. RPR titer is not detected. Urine culture is also pending. Assessment: A 27-year-old female with: 1.Hyperglycemia. Patient did have gestational diabetes. We will check hemoglobin A1c. We will sta rt on sliding scale insulin. We will resume her home dose of insulin. Patient is at risk for develo pment of diabetes. She will need to have her blood sugars monitored. We will proceed with diabetic education. 2.Acute cystitis without hematuria. We will start on Rocephin. We will follow up on urine culture. 3.Status post vaginal delivery as per Dr. Moreno. 4.Microcytic, hypochromic anemia. We will continue to monitor H and H. No indication for transfusi on at this time. Recommend iron supplements. Plan: IV antibiotics for UTI, mild sliding scale. We will resume home dose of Humulin, diabetic edu cation. Thank you Dr. Moreno, for the opportunity to participate in your patient's care. We will follow along with you. SA/MODL Voice ID: [id number] Report ID: [id number]
[2018-09-01] MEDS ORDERED: Ringers Lactate 1,000 ML IV ONE (01:05)
[2018-09-01 04:26] LABS: Absolute Lymphocytes (CBC) 1.9 K/uL (0.7-4.9); Basophils % 0.4 % (0-1.3); Eosinophils % 0.2 % (0-4.4); Hematocrit 30.8 % (36.0-45.0); Lymphocytes % 12.4 % (15.3-44.8); MPV 8.9 fL (7.6-11.3); Monocytes % 7.4 % (3.3-12.3); RBC Red Blood Cell Count 4.21 M/uL (3.86-4.86)
[2018-09-01] MEDS: IBUPROFEN 200 MG TAB PO PRN (06:15)
--- NOTE | 2018-09-01 06:45 | DS ---
This is a 27-year-old, 2, para 1, followed antepartum in consultation with Dr. Bojorquez in [facility] for diabetes. Patient is on insulin during her and according to h er, was in good control. The last reported hemoglobin A1c was in the 5 to 6 range according to the p atient. It was recommended by Dr. Bojorquez that she be delivered at 38 weeks. At 37 weeks and 5 days, she went into labor, came into my office, was noted to be advanced dilation, sent to Labor and Fausto sol. She was delivered of an 8-pound 2-ounce male infant, Apgars 7, 8 without any difficulties. No lacerations. No episiotomy. Schultze delivery of the placenta. Less than 250 cc blood loss. Epidu ral anesthesia during the labor. Baby had extremely low blood sugars and was having problems maintai eva oxygenation and was transferred to [place] where is now doing much better according to the patie nt and blood sugars are now in the 60-70 range and baby is on oxygen, but they are winding it down sl ly. The patient has been seen in consultation with the hospitalist and her blood sugars were eleva matt to the 170s-180s range. Hemoglobin A1c was obtained and it was 10, which is somewhat alarming an d unusual since the patient reported her last hemoglobin A1c less than a month ago was 5, so I think the patient is not being straight far as far as her diabetic control or her insulin compliance. In a ny event, she is doing better this morning. She has a local doctor, who now will assume care of her diabetes, Dr. Sheriff, whom apparently she is looked up on the Internet and will contact. She was given full instructions and we will see her back in 6 weeks for her routine followup. Final Diagnoses: Intrauterine gestation, 37 weeks 5 days; maternal diabetes, on insulin; vaginal del john, epidural anesthesia. NBC/MODL Voice ID: [id number] Report ID: [id number]
[2018-09-01] MEDS: OXYTOCIN/LR 20 UNIT/1,000 ML BAG IV SCH (07:00)
[2018-09-01] MEDS: INSULIN -REGULAR HUMAN 50 UNIT/0.5 ML ML SQ SCH ×2 (07:30→11:30)
--- NOTE | 2018-09-01 08:33 | PREOPHP ---
Date of Admission: 08/31/2018 This 27-year-old 2, para 1, 37 weeks 5 days, scheduled for induction later this week secondar y to diabetes that was managed in consultation with Dr. Bojorquez in [place], who recommended delivery a t approximately 38 weeks. The patient has had a cardiology consult during the , which showe d no problems. She has a history of preeclampsia with her first . No signs of preeclampsia during this . Her was killed earlier in the . The patient has responded w ell and has not shown any signs of severe depression. She came into my office today for routine exam after a biophysical profile scored 8/8, was noted to be in active labor, 7-8 cm, 100% effaced, verte x, -1 station, straight to labor and delivery. She has had her IV started. Epidural was attempted bu t has not given very good benefit. She may have a start again or at least re-attempt at placement. On the other hand patient is now 8 cm, 0 station. After spontaneous rupture of membranes, clear flui d and I anticipate that if she has some contractions very close together she will probably have the b vamshi. She is only having contractions every 4-5 minutes. We will start some light Pitocin. The scottie ent is under good control. I think she is getting some partial benefit from the epidural. Anticipate delivery relatively soon. HUMA/LEANNA Voice ID: [id number]
[2018-09-01 11:15] VITALS: BP 134/85; TEMP 96.8
[2018-09-01] MEDS ORDERED: CEFTRIAXONE 1 GM/NS 50 ML 1 GM/50 ML BAG IV SCH (17:00)
--- NOTE | 2018-09-01 22:18 | P.PN ---
Subjective Date of Service: 09/01/18 Subjective: Improving Patient seen and examined at bedside. No family at bedside. Chart reviewed and case discussed with nursing staff. No concerns or complaints this morning. Doing well Review of Systems 10-point ROS is otherwise unremarkable Physical Examination - Vital Signs Temperature: 96.8 F Blood Pressure: 134/85 Pulse: 79 Respirations: 17 Pulse Ox (%): 98 - Physical Exam General: Alert, In no apparent distress HEENT: Atraumatic, PERRLA, EOMI Neck: Supple, JVD not distended Respiratory: Clear to auscultation bilaterally, Normal air movement Cardiovascular: Regular rate/rhythm, Normal S1 S2 Gastrointestinal: Normal bowel sounds, No tenderness Musculoskeletal: No tenderness Integumentary: No rashes Neurological: Normal speech, Normal tone, Normal affect Lymphatics: No axilla or inguinal lymphadenopathy - Studies Laboratory Data (last 24 hrs) 09/01/18 04:07: WBC 15.3 H D, Hgb 10.0 L, Hct 30.8 L, Plt Count 308 Assessment And Plan - Plan A 27-year-old female with: 1. Hyperglycemia. Patient did have gestational diabetes in 1st , which did not require medications. Patient was referred to [facility] during her 2nd after she was noted to have blood sugars in 600-700 range after glucose tolerance test. She was started on insulin at that time. Patient states that she was taking insulin properly at home, during and was noted to have blood sugars 85-98 at home. Her A1c was elevated here. Diabetes education was provided to patient. She was started on metformin at discharge and was instructed to follow up with her primary care physician for further diabetes management. She was not discharged on any insulin at this time as patient had labile blood sugars and not a set eating schedule. She was also provided with resources for diabetes prior to discharge. 2. Acute cystitis without hematuria. Discontinue Rocephin answer all cultures negative and no symptoms at this time. 3. Status post vaginal delivery as per Dr. Moreno. 4. Microcytic, hypochromic anemia. We will continue to monitor H and H. No indication for transfusion at this time. Recommend iron supplements. Plan: Cleared for discharge home on oral metformin at this time. Strict instructions to follow up with primary care physician and or music writer for further diabetes management. Prescription provided to patient. Diabetes education resource information provided to patient as well.
[2018-09-03 04:30] LABS: HBsAG Nonreactive (Nonreactive)
== END 2018-09-01 12:30 | disposition home or self-care (01) | DRG 805 ==
LOC: 2ND-WC 10:54
PROVIDERS: ADMIT Specialist; ATTEND Specialist
PROC: 10E0XZZ Delivery of Products of Conception, External Approach (ICD-10-PCS; principal; 2018-08-31)
DX: O24.429 Gestational diabetes mellitus in childbirth, unspecified control (principal); O75.3 Other infection during labor; Z37.0 Single live birth; N30.00 Acute cystitis without hematuria; Z3A.37 37 weeks gestation of pregnancy; O90.81 Anemia of the puerperium; D50.9 Iron deficiency anemia, unspecified; Z79.4 Long term (current) use of insulin
CPT/HCPCS: 36415; 76805; 76819; 81003; 81015; 82962; 83036; 85025; 86592; 86850; 86900; 86901; 87086; 87088; 87340; 88307; J0360; J0696; J2175; J2210; J2590; J2795; J3010

== ENCOUNTER 2018-12-25 10:18 | Emergency (ER) | payer OTHER, SELFPAY ==
[2018-12-25] MEDS ORDERED: NA CHLORIDE 0.9% 1,000 ML ONE (11:03)
[2018-12-25] MEDS ORDERED: INSULIN -REGULAR HUMAN 50 UNIT/0.5 ML ML ONE (11:03)
[2018-12-25 11:07] LABS: Absolute Lymphocytes (CBC) 1.7 K/uL (0.7-4.9); Basophils % 0.9 % (0-1.3); Hematocrit 33.8 % (36.0-45.0); Lymphocytes % 24.5 % (15.3-44.8); MPV 9.3 fL (7.6-11.3); RBC Red Blood Cell Count 4.28 M/uL (3.86-4.86)
[2018-12-25 11:33] LABS: Albumin 3.4 g/dL (3.4-5.0); Bilirubin Total 0.3 mg/dL (0.2-1.0); Potassium 4.1 mmol/L (3.5-5.1); Protein, Total 6.8 g/dL (6.4-8.2)
--- NOTE | 2018-12-25 12:09 | ER ---
Nurse's Notes [facility] Name: Harriett Gillette Age: 27 yrs Sex: Female : 1990 Arrival Date: 12/25/2018 Time: 10:22 Bed 5 Private MD: Diagnosis: Type 2 diabetes mellitus;Weakness Presentation: 12/25 10:25 Presenting complaint: Patient states: Diagnosed with gestational diabetes during last . Patient is 4 months post and still has high blood glucose levels, and has an appointment with harness repairer today at 1610. Patient was at work today when she felt shaky and tired. States that her blood sugar seems to be getting higher everyday. Upon arrival to ER, patient reports feeling better than she did prior to EMS transportation. Transition of care: patient was not received from another setting of care. Onset of symptoms is unknown. Risk Assessment: Do you want to hurt yourself or someone else? Patient reports no desire to harm self or others. Initial Sepsis Screen: Does the patient meet any 2 criteria? No. Patient's initial sepsis screen is negative. Does the patient have a suspected source of infection? No. Patient's initial sepsis screen is negative. Care prior to arrival: Medication(s) given: NS 250 mL IV initiated. 20 GA, in the left antecubital area, Glucose check: 395. 10:25 Acuity: TIFFANIE 3 ss 10:25 Method Of Ar[facility]: [facility]: - Allergies: 10:29 Codeine; ss - Home Meds: 10:29 None [Active]; ss - PMHx: 10:29 GESTATIONAL DM; Pre-eclampsia; heart valve dysfunction; ss - PSHx: 10:29 Appendectomy; ss - Immunization history:: Adult Immunizations up to date. - Social history:: Smoking status: Patient uses tobacco products, smokes one-half pack cigarettes per day. - Ebola Screening: : Patient denies exposure to infectious person Patient denies travel to an Ebola-affected area in the 21 days before illness onset. - Family history:: not pertinent. Screenin:30 Abuse screen: Denies threats or abuse. Denies injuries from another. Nutritional ss screening: No deficits noted. Tuberculosis screening: Never had TB. Fall Risk None identified. Assessment: 10:30 General: Appears in no apparent distress. comfortable, Behavior is calm, cooperative, ss Reports fatigue for this am, with shakiness. Is better upon arrival to ED. Denies fever, feeling ill. Pain: Denies pain. Neuro: Level of Consciousness is awake, alert, obeys commands, Oriented to person, place, Cupola Charger Insulation are equal bilaterally Speech is normal, Facial symmetry appears normal, Pupils are PERRLA, Intact. Cardiovascular: Capillary refill < 3 seconds is brisk in bilateral fingers. Respiratory: Airway is patent Respiratory effort is even, unlabored, Respiratory pattern is regular, symmetrical, Breath sounds are clear bilaterally. Denies cough, shortness of breath labored breathing. GI: Patient currently denies diarrhea, nausea, vomiting. : No signs and/or symptoms were reported regarding the genitourinary system. EENT: Nares are clear Oral mucosa is moist. Throat is clear. Derm: Skin is intact, is healthy with good turgor, Skin is pink, warm \T\ dry. normal. Musculoskeletal: Circulation, motion, and sensation intact. Range of motion: intact in all extremities, Swelling absent. 11:08 Reassessment: Patient appears in no apparent distress at this time. Patient and/or ss family updated on plan of care and expected duration. Pain level reassessed. Patient is alert, oriented x 3, equal unlabored respirations, skin warm/dry/pink. sister at bedside. Awaiting for labs to result. 11:37 Reassessment: Patient appears in no apparent distress at this time. Patient and/or ss family updated on plan of care and expected duration. Pain level reassessed. Patient is alert, oriented x 3, equal unlabored respirations, skin warm/dry/pink. 12:38 Reassessment: Pt felt as if her blood sugar was dropping even more. BGL checked, is ss within normal range. Patient is eating and drinking juice at this time. Is laughing with sister at bedside. Dr. Tapia notified and states ok to discharge. Vital Signs: 10:29 BP 116 / 94; Pulse 87; Resp 15; Temp 97.9(TE); Pulse Ox 100% on R/A; Weight 61.23 kg; ss Height 5 ft. 0 in. (152.40 cm); Pain 0/10; 10:29 Body Mass Index 26.37 (61.23 kg, 152.40 cm) ED Course: 10:22 Patient arrived in ED. ss 10:25 Tata Colvin, RN is Primary Nurse. ss 10:25 Jalil Tapia MD is Attending Physician. [facility] 10:28 Triage completed. ss 10:29 Arm band placed on right wrist. ss 10:30 Patient has correct armband on for positive identification. Bed in low position. Call ss light in reach. 10:30 Maintain EMS IV. Dressing intact. Good blood return noted. Site clean \T\ dry. Gauge \T\ ss site: 20 gauge in L AC. Patient maintains SpO2 saturation greater than 95% on room air. Thermoregulation: warm blanket given to patient. 12:38 No provider procedures requiring assistance completed. IV discontinued, intact, ss bleeding controlled, No redness/swelling at site. Pressure dressing applied. Administered Medications: 11:07 Drug: Insulin Regular Human 10 units {Co-Signature: bp (Bart Cavazos RN).} Route: IVP; Site: left antecubital; 12:18 Follow up: Response: No adverse reaction; Blood sugar is lowered 11:08 Drug: NS 0.9% 1000 ml Route: IV; Rate: 1 bolus; Site: left antecubital; 12:34 Drug: metFORMIN 500 mg Route: PO; 12:34 Follow up: Response: Medication administered at discharge. 12:34 Drug: Tylenol 650 mg Route: PO; 12:35 Follow up: Response: Medication administered at discharge. Point of Care Testing: Blood Glucose: 11:50 Blood Glucose: 116 mg/dL; Ranges: Outcome: 12:08 Discharge ordered by . [facility] 12:38 Discharged to home ambulatory, with family. 12:38 Condition: good 12:38 Discharge instructions given to patient, family, Instructed on discharge instructions, follow up and referral plans. medication usage, Demonstrated understanding of instructions, follow-up care, medications, Prescriptions given X 1. 12:39 Patient left the ED. ss Signatures: Jalil Tapia MD MD cha Smirch, Shelby, RN RN Bart Cavazos RN bp
--- NOTE | 2018-12-25 12:09 | EDPHYS ---
Physician Documentation [facility] Name: Harriett Gillette Age: 27 yrs Sex: Female : 1990 Arrival Date: 12/25/2018 Time: 10:22 Bed 5 Private MD: ED Physician Jalil Tapia HPI: 12/25 12:05 This 27 yrs old Female presents to ER via EMS with complaints of High Blood augie Sugar. 12:05 The patient or guardian reports hyperglycemia, that was potentially precipitated by no augie particular event. Onset: The symptoms/episode began/occurred 2 day(s) ago. Associated signs and symptoms: Pertinent positives: skin flushing. Current symptoms: In the emergency department the patient's symptoms have improved, moderately, is more alert. Historical: - Allergies: 10: Codeine; ss - Home Meds: : None [Active]; ss - PMHx: : GESTATIONAL DM; Pre-eclampsia; heart valve dysfunction; ss - PSHx: 10: Appendectomy; ss - Immunization history:: Adult Immunizations up to date. - Social history:: Smoking status: Patient uses tobacco products, smokes one-half pack cigarettes per day. - Ebola Screening: : Patient denies exposure to infectious person Patient denies travel to an Ebola-affected area in the 21 days before illness onset. - Family history:: not pertinent. ROS: 12:05 Constitutional: Negative for fever, chills, and weight loss, Eyes: Negative for injury, augie pain, redness, and discharge, ENT: Negative for injury, pain, and discharge, Neck: Negative for injury, pain, and swelling, Cardiovascular: Negative for chest pain, palpitations, and edema, Respiratory: Negative for shortness of breath, cough, wheezing, and pleuritic chest pain, Abdomen/GI: Negative for abdominal pain, nausea, vomiting, diarrhea, and constipation, Back: Negative for injury and pain, : Negative for injury, bleeding, discharge, and swelling, MS/Extremity: Negative for injury and deformity, Skin: Negative for injury, rash, and discoloration, Psych: Negative for depression, anxiety, suicide ideation, homicidal ideation, and hallucinations, Allergy/Immunology: Negative for hives, rash, and allergies, Endocrine: Negative for neck swelling, polydipsia, polyuria, polyphagia, and marked weight changes, Hematologic/Lymphatic: Negative for swollen nodes, abnormal bleeding, and unusual bruising. 12:05 Neuro: Positive for Exam: 12:05 Constitutional: This is a well developed, well nourished patient who is awake, alert, augie and in no acute distress. Head/Face: Normocephalic, atraumatic. Eyes: Pupils equal round and reactive to light, extra-ocular motions intact. Lids and lashes normal. Conjunctiva and sclera are non-icteric and not injected. Cornea within normal limits. Periorbital areas with no swelling, redness, or edema. ENT: Nares patent. No nasal discharge, no septal abnormalities noted. Tympanic membranes are normal and external auditory canals are clear. Oropharynx with no redness, swelling, or masses, exudates, or evidence of obstruction, uvula midline. Mucous membranes moist. Neck: Trachea midline, no thyromegaly or masses palpated, and no cervical lymphadenopathy. Supple, full range of motion without nuchal rigidity, or vertebral point tenderness. No Meningismus. Chest/axilla: Normal chest wall appearance and motion. Nontender with no deformity. No lesions are appreciated. Cardiovascular: Regular rate and rhythm with a normal S1 and S2. No gallops, murmurs, or rubs. Normal PMI, no JVD. No pulse deficits. Respiratory: Lungs have equal breath sounds bilaterally, clear to auscultation and percussion. No rales, rhonchi or wheezes noted. No increased work of breathing, no retractions or nasal flaring. Abdomen/GI: Soft, non-tender, with normal bowel sounds. No distension or tympany. No guarding or rebound. No evidence of tenderness throughout. Back: No spinal tenderness. No costovertebral tenderness. Full range of motion. Female : Normal external genitalia. Skin: Warm, dry with normal turgor. Normal color with no rashes, no lesions, and no evidence of cellulitis. MS/ Extremity: Pulses equal, no cyanosis. Neurovascular intact. Full, normal range of motion. Neuro: Awake and alert, GCS 15, oriented to person, place, time, and situation. Cranial nerves II-XII grossly intact. Motor strength 5/5 in all extremities. Sensory grossly intact. Cerebellar exam normal. Normal gait. Psych: Awake, alert, with orientation to person, place and time. Behavior, mood, and affect are within normal limits. Vital Signs: 10:29 BP 116 / 94; Pulse 87; Resp 15; Temp 97.9(TE); Pulse Ox 100% on R/A; Weight 61.23 kg; ss Height 5 ft. 0 in. (152.40 cm); Pain 0/10; 10:29 Body Mass Index 26.37 (61.23 kg, 152.40 cm) MDM: 10:25 Patient medically screened. [facility] 12:05 Data reviewed: vital signs, nurses notes, lab test result(s). [facility] 12/25 10:41 Order name: Glucose, Ancillary Testing; Complete Time: 10:51 EDMT 12/25 10:53 Order name: CBC with Diff; Complete Time: 12:04 [facility] 12/25 10:53 Order name: Comprehensive Metabolic Panel; Complete Time: 12:04 [facility] 12/25 11:13 Order name: Urine Dipstick--Ancillary (enter results) 12/25 11:13 Order name: Urine --Ancillary (enter results) 12/25 12:04 Order name: Glucose, Ancillary Testing [facility] 12/25 10:53 Order name: Urine Dipstick-Ancillary (obtain specimen); Complete Time: 10:53 [facility] 12/25 10:53 Order name: Urine Test (obtain specimen); Complete Time: 10:53 [facility] 12/25 12:37 Order name: Glucose, Ancillary Testing EDMT Administered Medications: 11:07 Drug: Insulin Regular Human 10 units {Co-Signature: bp (Bart Cavazos RN).} Route: IVP; Site: left antecubital; 12:18 Follow up: Response: No adverse reaction; Blood sugar is lowered 11:08 Drug: NS 0.9% 1000 ml Route: IV; Rate: 1 bolus; Site: left antecubital; 12:34 Drug: metFORMIN 500 mg Route: PO; 12:34 Follow up: Response: Medication administered at discharge. 12:34 Drug: Tylenol 650 mg Route: PO; 12:35 Follow up: Response: Medication administered at discharge. Point of Care Testing: Blood Glucose: 11:50 Blood Glucose: 116 mg/dL; Ranges: Critical Glucose Levels:Adult <50 mg/dl or >400 mg/dl <40 mg/dl or >180 mg/dl Disposition: 12/25/18 12:08 Discharged to Home. Impression: Type 2 diabetes mellitus, Weakness. - Condition is Stable. - Discharge Instructions: Type 2 Diabetes Mellitus, Diagnosis, Adult, Weakness, Weakness, [id number], Type 2 Diabetes Mellitus, Diagnosis, Adult, [id number]. - Prescriptions for Vitamin 27- 0.8 mg Oral Tablet - take 1 tablet by ORAL route once daily; 30 tablet. Metformin 500 mg Oral Tablet - take 1 tablet by ORAL route every 12 hours for 7 days Then take 1 tablet with morning meals AND evening meals; 60 tablet. - Work release form, Medication Reconciliation Form, Thank You Letter, Antibiotic Education, Prescription Opioid Use form. - Follow up: Private Physician; When: 2 - 3 days; Reason: Recheck today's complaints, Continuance of care, Re-evaluation by your physician. - Problem is new. - Symptoms have improved. Signatures: Dispatcher [employer] EDJalil Villeda MD MD cha Smirch, Shelby, RN RN ss Bart Cavazos RN bp Corrections: (The following items were deleted from the chart) 12:39 12:08 12/25/2018 12:08 Discharged to Home. Impression: Type 2 diabetes mellitus; ss Weakness. Condition is Stable. Forms are Medication Reconciliation Form, Thank You Letter, Antibiotic Education, Prescription Opioid Use. Follow up: Private Physician; When: 2 - 3 days; Reason: Recheck today's complaints, Continuance of care, Re-evaluation by your physician. Problem is new. Symptoms have improved. augie
[2018-12-25] MEDS ORDERED: METFORMIN HCL 500 MG TAB ONE (12:32)
[2018-12-25] MEDS ORDERED: ACETAMINOPHEN 325 MG TABLET ONE (12:32)
[2018-12-25 16:30] LABS: Urine Blood TRACE (NEG); Urine Glucose 2+ (NEG); Urine Protein NEGATIVE (NEG); Urine pH 5.5 (5.0-7.0)
--- OUTSIDE RECORDS SUMMARY | 2018-12-28 05:13 | XMS REPORT ---
:1990 Author Organization [facility] Address [address] [place] [address] Care Team Providers Name Role Phone Unavailable [...] Comments GLUBED (test code=GLUBED) 148 mg/dL 65-110 [id number] 10:51:00 Test Item Value Reference Range Comments GLUBED (test code=GLUBED) 174 mg/dL 65-110 [id number] 06:04:00 Test Item Value Reference Range Comments GLUBED (test code=GLUBED) 83 mg/dL 65-110 GLYCOSYLATED HEMOGLOBIN [id number] 04:40:00 Test Item Value Reference Range Comments [...] (test 189 MG/DL 70-110 code=MBG) COMPREHENSIVE METABOLIC [id number] 04:40:00 Test Item Value Reference Range Comments [...] as fructosamineshould be considered for these patients. [id number] 00:14:00 Test Item Value Reference Range Comments GLUBED (test code=GLUBED) 194 mg/dL 65-110 COMPREHENSIVE METABOLIC [id number] 21:06:00 Test Item Value Reference Range Comments [...] GLYCOSYLATED HEMOGLOBIN (HA1C) (test code=GLYHGB) CBC W/AUTO [id number] 20:53:00 Test Item Value Reference Range Comments [...] MORPHOLOGY REQUIRED (test code=PLTMR) NORMAL NORMAL URINALYSIS [id number] 20:08:00 Test Item Value Reference Range Comments [...] FEW #/hpf NONE SEEN URINE SAMPLE: CLEAN [id number] 20:01:00 Test Item Value Reference Range Comments GLUBED (test code=GLUBED) 196 mg/dL 65-110 URINALYSIS [id number] 19:53:00 Test Item Value Reference Range Comments [...]
== END 2018-12-25 12:39 | disposition home or self-care (01) ==
LOC: ER 10:18
DX: E11.65 Type 2 diabetes mellitus with hyperglycemia (principal); F17.210 Nicotine dependence, cigarettes, uncomplicated; Z88.5 Allergy status to narcotic agent
CPT/HCPCS: 36415; 80053; 81003; 81025; 82947; 85025; 96374; 99284; J7030

== ENCOUNTER 2020-02-22 15:12 | Emergency (ER) | payer SELFPAY ==
--- OUTSIDE RECORDS SUMMARY | 2020-02-22 15:23 | XMS REPORT | Continuity of Care Document ---
:1990 Author Organization [facility] t Address [address] [place] [address] Care Team Providers Name Role Phone Unavailable Unavailable Unavailable Payers Payer Name Policy Type Policy Number Effective Date Expiration Date S ource Problems This patient has no known problems. Allergies, Adverse Reactions, Alerts Allergy Allergy Status Severity Reaction(s) Onset Inactive Treating Comm ents Source Name Type Date Date Clinician No Known DA Active U [facility] Allergie 06-09 s 00:00: [address] Medications This patient has no known medications. Procedures This patient has no known procedures. Results Test Description Test Time Test Comments Results Result Comments Source GLUBED 2018-06-10 15:58:00 Test Item Value Reference Range Interpretation Comme nts GLUBED (test code = GLUBED) 148 mg/dL 65-110 H [id number] 10:51:00 Test Item Value Reference Range Interpretation Comments GLUBED (test code = GLUBED) 174 mg/dL 65-110 H [id number] 06:04:00 Test Item Value Reference Range Interpretation Comments GLUBED (test code = GLUBED) 83 mg/dL 65-110 N GLYCOSYLATED HEMOGLOBIN [id number] 04:40:00 Test Item Value Reference Range Interpretation Comments GLYCOSYLATED 8.2 % 4.8-5.9 H Any condition t hat HEMOGLOBIN (HA1C) shortens e rythocyte (test code = survival or dec reasesmean GLYHGB) erythrocyte age (e.g., recovery from a cute blood loss,hemolytic anemia) will falsely lo wer HGBA1c resultsregardle ss of the method used. H GBA1c results from kelly velasquez HbSS, HbCC, and HbSc must be interpreted with cautiongiven th e pathological pr ocesses, including anemia,increase d red cell turnover, trans fusion requirements, thatadversely i mpact HGBA1c as a mar ker of long-term glycemiccontrol . Alternative for ms of testing such as fructosaminesho uld be considered for these patients. MEAN BLOOD GLUCOSE 189 MG/DL 70-110 H (test code = MBG) COMPREHENSIVE METABOLIC [id number] 04:40:00 Test Item Value Reference Range Interpretation Comments SODIUM (test code = NA) 135 mEq/L 135-145 N POTASSIUM (test code = K) 4.0 mEq/L 3.5-5.0 N CHLORIDE (test code = CL) 101 mEq/L 100-115 N CARBON DIOXIDE (test code = CO2) 21 mEq/L 22-31 L ANION GAP (test code = GAP) 16.70 10-20 N GLUCOSE (test code = GLU) 176 mg/dL 65-110 H BLOOD UREA NITROGEN (test code = 10 mg/dL 7-18 N BUN) GLOMERULAR FILTRATION RATE (test 100 ml/min >60 N code = GFR) CREATININE (test code = CREAT) 0.7 mg/dL 0.5-1.0 N TOTAL PROTEIN (test code = PROT) 6.3 gm/dL 6.3-8.2 N ALBUMIN (test code = ALB) 2.7 gm/dL 3.4-4.8 L CALCIUM (test code = CA) 8.6 mg/dL 8.4-10.2 N BILIRUBIN TOTAL (test code = BILT) 0.2 mg/dL 0.2-1.0 N SGOT/AST (test code = AST) 11 units/L 15-37 L SGPT/ALT (test code = ALT) 10 units/L 12-78 L ALKALINE PHOSPHATASE TOTAL (test 78 units/L 46-116 N code = ALKP) GLYCOSYLATED HEMOGLOBIN (HA1C)2018-06-10 04:40:00 Test Item Value Reference Range Interpretation Comments GLYCOSYLATED 8.2 % 4.8-5.9 H Any condition t hat shortens HEMOGLOBIN (HA1C) erythocyte survival or (test code = GLYHGB) decreas esmean erythrocyte age (e.g., judit very from acute blood los s,hemolytic anemia) will fa lsely lower HGBA1c resultsr egardless of the method used . HGBA1c results from kelly velasquez HbSS, HbCC, and HbSc must be interpreted with cautiongiven th e pathological pr ocesses, including anemi a,increased red cell turnov er, transfusion req uirements, thatadversely i mpact HGBA1c as a marker of long-term glycemiccontrol . Alternative for ms of testing such as fructosaminesho uld be considered for these patients. [id number] 00:14:00 Test Item Value Reference Range Interpretation Comments GLUBED (test code = GLUBED) 194 mg/dL 65-110 H COMPREHENSIVE METABOLIC [id number] 21:06:00 Test Item Value Reference Range Interpretation Comments SODIUM (test code = NA) 135 mEq/L 135-145 N POTASSIUM (test code = K) 4.0 mEq/L 3.5-5.0 N CHLORIDE (test code = CL) 101 mEq/L 100-115 N CARBON DIOXIDE (test code = CO2) 21 mEq/L 22-31 L ANION GAP (test code = GAP) 16.70 10-20 N GLUCOSE (test code = GLU) 176 mg/dL 65-110 H BLOOD UREA NITROGEN (test code = 10 mg/dL 7-18 N BUN) GLOMERULAR FILTRATION RATE (test 100 ml/min >60 N code = GFR) CREATININE (test code = CREAT) 0.7 mg/dL 0.5-1.0 N TOTAL PROTEIN (test code = PROT) 6.3 gm/dL 6.3-8.2 N ALBUMIN (test code = ALB) 2.7 gm/dL 3.4-4.8 L CALCIUM (test code = CA) 8.6 mg/dL 8.4-10.2 N BILIRUBIN TOTAL (test code = BILT) 0.2 mg/dL 0.2-1.0 N SGOT/AST (test code = AST) 11 units/L 15-37 L SGPT/ALT (test code = ALT) 10 units/L 12-78 L ALKALINE PHOSPHATASE TOTAL (test 78 units/L 46-116 N code = ALKP) GLYCOSYLATED HEMOGLOBIN (HA1C)2018-06-09 21:06:00 Test Item Value Reference Range Interpretation Comments GLYCOSYLATED HEMOGLOBIN (HA1C) (test code = GLYHGB) CBC W/AUTO [id number] 20:53:00 Test Item Value Reference Range Interpretation Comments WHITE BLOOD CELL (test code = WBC) 8.6 K/mm3 6.6-12.1 N RED BLOOD CELL (test code = RBC) 3.32 M/mm3 3.45-5.01 L HEMOGLOBIN (test code = HGB) 9.3 g/dL 10.7-13.9 L HEMATOCRIT (test code = HCT) 28.4 % 32.1-42.1 L MEAN CELL VOLUME (test code = MCV) 86 fL 84.1-94.8 N MEAN CELL HGB (test code = MCH) 28.0 pg 27-35 N MEAN CELL HGB CONCETRATION (test 32.7 gm/dL 32.2-34.1 N code = MCHC) RED CELL DISTRIBUTION WIDTH (test 13.3 % 12.4-16.5 N code = RDW) PLATELET COUNT (test code = PLT) 360 K/mm3 133-385 N IMMATURE PLATELET FRACTION (test 2.9 % 0.0-10.8 N code = IPF) MEAN PLATELET VOLUME (test code = 10.5 fl 9.1-12.7 N MPV) NEUTROPHIL % (test code = NT%) 63.4 % 56.5-79.4 N LYMPHOCYTE % (test code = LY%) 26.6 % 14.3-34.3 N MONOCYTE % (test code = MO%) 8.0 % 5.1-10.4 N EOSINOPHIL % (test code = EO%) 1.2 % 0.1-3.0 N BASOPHIL % (test code = BA%) 0.5 % 0.1-1.0 N NEUTROPHIL # (test code = NT#) 5.5 K/mm3 LYMPHOCYTE # (test code = LY#) 2.3 K/mm3 MONOCYTE # (test code = MO#) 0.7 K/mm3 EOSINOPHIL # (test code = EO#) 0.10 K/mm3 BASOPHIL # (test code = BA#) 0.0 K/mm3 RBC MORPHOLOGY REQUIRED (test code NORMAL NORMAL = RBCM) PLATELET MORPHOLOGY REQUIRED (test NORMAL NORMAL code = PLTMR) URINALYSIS [id number] 20:08:00 Test Item Value Reference Range Interpretation Comments UA COLOR (test code = COLU) YELLOW YELLOW UA APPEARANCE (test code = APPU) CLEAR CLEAR UA GLUCOSE DIPSTICK (test code = 3+ NEGATIVE DGLUU) UA BILIRUBIN DIPSTICK (test code = NEGATIVE NEGATIVE BILU) UA KETONE DIPSTICK (test code = TRACE NEGATIVE KETU) UA SPECIFIC GRAVITY (test code = 1.020 1.001-1.035 N SGU) UA BLOOD DIPSTICK (test code = RANDI) NEG NEGATIVE UA PH DIPSTICK (test code = MANOLO) 6.0 5-9 UA PROTEIN DIPSTICK (test code = NEGATIVE NEGATIVE PROU) UA UROBILINIOGEN DIPSTICK (test 0.2 EU/dL <=1.0 code = URO) UA NITRITE DIPSTICK (test code = NEGATIVE NEGATIVE NARESH) UA LEUKOCYTE ESTERASE DIPSTICK NEG NEGATIVE (test code = LEUU) UA WBC (test code = WBCU) 2-5 #/hpf NONE SEEN A UA RBC (test code = RBCU) 0-2 #/hpf NONE SEEN UA EPITHELIAL CELLS (test code = FEW #/HPF RARE-FEW EPIU) UA BACTERIA (test code = BACU) FEW #/hpf NONE SEEN A URINE SAMPLE: CLEAN [id number] 20:01:00 Test Item Value Reference Range Interpretation Comments GLUBED (test code = GLUBED) 196 mg/dL 65-110 H URINALYSIS [id number] 19:53:00 Test Item Value Reference Range Interpretation Comments UA COLOR (test code = COLU) YELLOW YELLOW UA APPEARANCE (test code = APPU) CLEAR CLEAR UA GLUCOSE DIPSTICK (test code = 3+ NEGATIVE DGLUU) UA BILIRUBIN DIPSTICK (test code = NEGATIVE NEGATIVE BILU) UA KETONE DIPSTICK (test code = TRACE NEGATIVE KETU) UA SPECIFIC GRAVITY (test code = 1.020 1.001-1.035 N SGU) UA BLOOD DIPSTICK (test code = RANDI) NEG NEGATIVE UA PH DIPSTICK (test code = MANOLO) 6.0 5-9 UA PROTEIN DIPSTICK (test code = NEGATIVE NEGATIVE PROU) UA UROBILINIOGEN DIPSTICK (test 0.2 EU/dL <=1.0 code = URO) UA NITRITE DIPSTICK (test code = NEGATIVE NEGATIVE NARESH) UA LEUKOCYTE ESTERASE DIPSTICK NEG NEGATIVE (test code = LEUU) UA WBC (test code = WBCU) #/hpf NONE SEEN UA EPITHELIAL CELLS (test code = #/HPF RARE-FEW EPIU) URINE SAMPLE: CLEAN CATCH
--- NOTE | 2020-02-22 16:13 | ER ---
Nurse's Notes [facility] Name: Harriett Gillette Age: 29 yrs Sex: Female : 1990 Arrival Date: 02/22/2020 Time: 15:14 Bed 15 Private MD: Diagnosis: Diabetes mellitus due to underlying condition with hyperglycemia Presentation: 02/21 15:35 Chief complaint: Patient states: i woke up this morning to go to work it was 416, i tw2 took 40 units of Levemir and i fell asleep and it was really high again so i took 20 more units it was 265 mg/dL , i was seeing Dr. Garcia at the [facility]. Coronavirus screen: At this time, the client does not indicate any symptoms associated with coronavirus-19. Ebola Screen: Patient denies travel to an Ebola-affected area in the 21 days before illness onset. Initial Sepsis Screen: Does the patient meet any 2 criteria? HR > 90 bpm. No. Patient's initial sepsis screen is negative. Does the patient have a suspected source of infection? No. Patient's initial sepsis screen is negative. Risk Assessment: Do you want to hurt yourself or someone else? Patient reports no desire to harm self or others. Onset of symptoms was February 22, 2020. 15:35 Method Of Arrival: Ambulatory tw2 15:35 Acuity: TIFFANIE 3 tw2 Triage Assessment: 15:37 General: Appears in no apparent distress. slender, Behavior is calm, cooperative, tw2 appropriate for age. Pain: Denies pain. 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 - Social history:: Smoking status: . Assessment: 16:12 Reassessment: Pt states, "I can't stay, I have 2 boys at home and it's just my brother ca1 is watching them" Notified ZACK Quiñones and instructed to have pt sign AMA. Vital Signs: 15:34 BP 130 / 78; Pulse 91; Resp 18; Temp 97.9(TE); Pulse Ox 100% on R/A; Weight 61.23 kg tw2 (R); Height 5 ft. (152.40 cm); Pain 0/10; 15:34 Body Mass Index 26.37 (61.23 kg, 152.40 cm) tw2 ED Course: 15:14 Patient arrived in ED. ag3 15:37 Triage completed. tw2 15:37 Arm band placed on. tw2 15:38 [place] Armenta, RN is Primary Nurse. ca1 15:39 Jalil Stockton PA is PHCP. cp 15:39 Jalil Tapia MD is Attending Physician. cp Administered Medications: No medications were administered Point of Care Testing: Blood Glucose: 15:34 Blood Glucose: 260 mg/dL; tw2 Ranges: Outcome: 16:11 AMA AMA form signed ca1 16:13 Patient left the ED. ca1 Signatures: Jalil Stockton PA PA cp Wise, Tara, RN RN tw2 Humera Lopez ag3 [place] Armenta, AHSAN RN ca1
--- NOTE | 2020-02-22 16:14 | EDPHYS ---
Physician Documentation [facility] Name: Harriett Gillette Age: 29 yrs Sex: Female : 1990 Arrival Date: 02/22/2020 Time: 15:14 Bed 15 Private MD: ED Physician Jalil Tapia HPI: 02/21 16:08 This 29 yrs old Female presents to ER via Ambulatory with complaints of High cp Blood Sugar. 16:08 The patient or guardian reports hyperglycemia, that was potentially precipitated by no cp particular event. Onset: The symptoms/episode began/occurred this morning. Associated signs and symptoms: Pertinent positives: None. Current symptoms: In the emergency department the patient's symptoms have improved, mildly. 16:10 Patient reports checking blood glucose level this morning and recording 416. Took 40 cp units of Levemir and went to sleep. Woke up and checked blood glucose level that returned 265. Patient reports taking another 20 units of Levemir and then coming to ED. No other complaints expressed. TARPER: 15:34 LMP 02/22/2020 tw2 Historical: - Allergies: 15:38 Codeine; tw2 - Home Meds: 15:38 Levemir 100 unit/mL subcutaneous soln [Active]; tw2 - PMHx: 15:38 GESTATIONAL DM; heart valve dysfunction; Pre-eclampsia; Diabetes - IDDM; tw2 - PSHx: 15:38 Appendectomy; tw2 - Immunization history:: Adult Immunizations. - Social history:: Smoking status: . ROS: 16:10 Constitutional: Negative for body aches, chills, fever, poor PO intake. cp 16:10 Cardiovascular: Negative for chest pain, palpitations. cp 16:10 Respiratory: Negative for cough, shortness of breath, wheezing. 16:10 Abdomen/GI: Negative for abdominal pain, nausea, vomiting, and diarrhea, constipation, anorexia. 16:10 : Negative for urinary symptoms. 16:10 Skin: Negative for rash. 16:10 Neuro: Negative for altered mental status, dizziness, headache, weakness. 16:10 All other systems are negative. Exam: 16:10 Head/Face: Normocephalic, atraumatic. cp 16:10 Constitutional: The patient appears in no acute distress, alert, awake, comfortable, non-toxic, well developed, well nourished. 16:10 Eyes: Periorbital structures: appear normal, Conjunctiva: normal, no exudate, no injection, Lids and lashes: appear normal, bilaterally. 16:10 ENT: External ear(s): are unremarkable, Nose: is normal, Posterior pharynx: Airway: no evidence of obstruction, patent. 16:10 Chest/axilla: Inspection: normal. 16:10 Cardiovascular: Rate: normal. 16:10 Respiratory: the patient does not display signs of respiratory distress, Respirations: normal, no use of accessory muscles, no retractions, labored breathing, is not present. 16:10 Abdomen/GI: Exam negative for discomfort, distension, guarding, Inspection: abdomen appears normal. 16:10 Neuro: Orientation: to person, place \T\ time. Mentation: is normal. Vital Signs: 15:34 BP 130 / 78; Pulse 91; Resp 18; Temp 97.9(TE); Pulse Ox 100% on R/A; Weight 61.23 kg tw2 (R); Height 5 ft. (152.40 cm); Pain 0/10; 15:34 Body Mass Index 26.37 (61.23 kg, 152.40 cm) tw2 MDM: 15:46 Patient medically screened. [facility] 16:13 Data reviewed: vital signs, nurses notes. Refusal of service: The patient/guardian cp displays adequate decision making capability and despite a detailed discussion of alternatives, benefits, risks, and consequences refuses: all lab tests. 02/21 15:47 Order name: Glucose, Ancillary Testing; Complete Time: 15:47 EDNM 02/21 15:39 Order name: Accucheck Blood Glucose; Complete Time: 16:03 02/21 15:48 Order name: Urine Dipstick-Ancillary (obtain specimen) 02/21 15:48 Order name: Urine Test (obtain specimen) 02/21 15:55 Order name: IV Saline Lock 02/21 15:55 Order name: Labs collected and sent Administered Medications: No medications were administered Point of Care Testing: Blood Glucose: 15:34 Blood Glucose: 260 mg/dL; tw2 Ranges: Critical Glucose Levels:Adult <50 mg/dl or >400 mg/dl <40 mg/dl or >180 mg/dl Disposition: 16:15 Chart complete. cp Disposition: 02/22/20 16:13 Patient has left against medical advice. Impression: Diabetes mellitus due to underlying condition with hyperglycemia. - Patients states they are going to Home. - Condition is Stable. - Discharge Instructions: Form - Daily Diabetes Record, Blood Glucose Monitoring, Adult, Diabetes Mellitus and Food. Follow up: Private Physician; When: 1 - 2 days; Reason: Recheck today's complaints. - Problem is new. - Symptoms are unchanged. Addendum: 02/23/2020 17:21 Co-signature as Attending Physician, Jalil Tapia MD I agree with the assessment and c pollard plan of care. Signatures: Dispatcher [employer] EDNM Jalil Tapia MD MD cha Page, Corey PA PA Radha Larsen, RN RN tw2 [place] Armenta RN RN ca1 Corrections: (The following items were deleted from the chart) 02/21 16:12 15:55 BASIC METABOLIC PANEL+C.LAB.BRZ ordered. EDMS EDMS 16:12 15:55 HEPATIC FUNCTION+C.LAB.BRZ ordered. EDMS EDMS 16:12 15:55 LIPASE+C.LAB.BRZ ordered. EDMS EDMS 16:13 15:55 CBC+H.LAB.BRZ ordered. EDMS EDMS 16:13 16:13 02/22/2020 16:13 Patients has left against medical advice. Impression: Diabetes ca1 mellitus due to underlying condition with hyperglycemia. Patient states they are going to Home. Condition is Stable. Follow up: Private Physician; When: 1 - 2 days; Reason: Recheck today's complaints. Problem is new. Symptoms are unchanged. cp
[2020-02-22 16:31] VITALS: BP 130/78; TEMP 97.9; O2SAT 100
== END 2020-02-22 16:13 | disposition left against medical advice (07) ==
LOC: ER 15:12
DX: E11.65 Type 2 diabetes mellitus with hyperglycemia (principal); Z79.4 Long term (current) use of insulin; Z88.5 Allergy status to narcotic agent
CPT/HCPCS: 82947; 99281

== ENCOUNTER 2020-09-26 15:42 | Emergency (ER) | payer SELFPAY ==
--- OUTSIDE RECORDS SUMMARY | 2020-09-26 15:44 | XMS REPORT | Continuity of Care Document ---
:1990 Author Organization [facility] t Address [address] [place] [address] Care Team Providers Name Role Phone Kostas Babcock DO Attending Clinician Nilda Cisneros Attending Clinician Payers Payer Name Policy Type Policy Number Effective Date Expiration Date S ource Problems This patient has no known problems. Allergies, Adverse Reactions, Alerts Allergy Allergy Status Severity Reaction(s) Onset Inactive Treating Comm ents Source Name Type Date Date Clinician No Known DA Active U [facility] 06-09 [facility] 00:00: [address] Medications This patient has no known medications. Procedures This patient has no known procedures. Encounters Start End Encounter Admission Attending Care Care Encounter Source Date/Time Date/Time Type Type Clinicians Facility Department ID 2020-05-09 2020-05-09 Patient Sadiq FIGUEROA [id number] 00:00:00 [facility]00:[id number] Kostas [facility] [id number] NETTA [id number] 2020-04-28 2020-04-[address] [facility] [id number] 10:17:04 11:41:16 Visit Anel Munguia [employer] [id number] [facility] [id number] MATERNAL [id number] & CHILD [address] [place] [address] Results Test Description Test Time Test Comments Results Result Comments Source GLUBED 2018-06-10 15:58:00 Test Item Value Reference Range Interpretation Comme nts GLUBED (test code = GLUBED) 148 mg/dL 65-110 H [id number] 10:51:00 Test Item Value Reference Range Interpretation Comments GLUBED (test code = GLUBED) 174 mg/dL 65-110 H [id number] 06:04:00 Test Item Value Reference Range Interpretation Comments GLUBED (test code = GLUBED) 83 mg/dL 65-110 N COMPREHENSIVE METABOLIC [id number] 04:40:00 Test Item Value Reference Range Interpretation [...] fructosaminesho uld be considered for these patients. GLYCOSYLATED HEMOGLOBIN [id number] 04:40:00 Test Item Value Reference Range Interpretation [...] MG/DL 70-110 H (test code = MBG) [id number] 00:14:00 Test Item Value Reference Range Interpretation Comments GLUBED (test code = GLUBED) 194 mg/dL 65-110 H COMPREHENSIVE METABOLIC [id number] 21:06:00 Test Item Value Reference Range Interpretation [...] (HA1C) (test code = GLYHGB) CBC W/AUTO [id number] 20:53:00 Test Item Value Reference Range Interpretation [...] (test NORMAL NORMAL code = PLTMR) URINALYSIS [id number] 20:08:00 Test Item Value Reference Range Interpretation [...] #/hpf NONE SEEN A URINE SAMPLE: CLEAN [id number] 20:01:00 Test Item Value Reference Range Interpretation Comments GLUBED (test code = GLUBED) 196 mg/dL 65-110 H URINALYSIS [id number] 19:53:00 Test Item Value Reference Range Interpretation [...]
[2020-09-26 18:09] LABS: SARS-COV-2 RT PCR NEGATIVE (NEGATIVE)
--- NOTE | 2020-09-26 18:19 | EDPHYS ---
Physician Documentation [facility] Name: Harriett Gillette Age: 29 yrs Sex: Female : 1990 Arrival Date: 09/26/2020 Time: 15:46 Bed Waiting Private MD: ED Physician Tripp Clark HPI: 09/26 16:13 This 29 yrs old Female presents to ER via Unassigned with complaints of kb Headache, Nausea. 16:13 The patient or guardian reports flu symptoms, myalgias. Onset: The symptoms/episode kb began/occurred 6 day(s) ago. Severity of symptoms: At their worst the symptoms were mild, moderate, in the emergency department the symptoms are unchanged. Modifying factors: The symptoms are alleviated by nothing, the symptoms are aggravated by nothing. Associated signs and symptoms: Pertinent positives: nausea, Pertinent negatives: chest pain, diarrhea, ear ache, fever, rhinorrhea, sore throat, vomiting. The patient has not experienced similar symptoms in the past. The patient has not recently seen a physician. Pt reports headache, nausea, malaise, fatigue for 6 days. Brother tested positive for covid yesterday and they all live in the same household. Historical: - Allergies: 16:46 Codeine; kg - PMHx: 16:46 Diabetes - IDDM; GESTATIONAL DM; heart valve dysfunction; Pre-eclampsia; kg - PSHx: 16:46 None; kg - Immunization history:: Adult Immunizations not up to date, Client reports having NOT received the Covid vaccine. - Social history:: Smoking status: unknown. ROS: 16:15 Respiratory: Negative for shortness of breath, cough, wheezing, and pleuritic chest kb pain. 16:15 Constitutional: Positive for fatigue, malaise. 16:15 Abdomen/GI: Positive for nausea. 16:15 Neuro: Positive for headache. 16:15 All other systems are negative. Exam: 16:15 Constitutional: This is a well developed, well nourished patient who is awake, alert, kb and in no acute distress. Head/Face: Normocephalic, atraumatic. ENT: Moist Mucous membranes Cardiovascular: Regular rate and rhythm with a normal S1 and S2. No gallops, murmurs, or rubs. No pulse deficits. Respiratory: Respirations even and unlabored. No increased work of breathing, no retractions or nasal flaring. Skin: Warm, dry with normal turgor. Normal color. MS/ Extremity: Pulses equal, no cyanosis. Neurovascular intact. Full, normal range of motion. Neuro: Awake and alert, GCS 15, oriented to person, place, time, and situation. Moves all extremities. Normal gait. Psych: Awake, alert, with orientation to person, place and time. Behavior, mood, and affect are within normal limits. Vital Signs: 16:38 BP 111 / 73; Pulse 70; Resp 18; Temp 97.7(TE); Pulse Ox 97% on R/A; Weight 58.97 kg; kg Height 5 ft. 0 in. (152.40 cm); Pain 7/10; 16:38 Body Mass Index 25.39 (58.97 kg, 152.40 cm) kg MDM: 16:08 Patient medically screened. kb 16:13 Data reviewed: vital signs, nurses notes. Data interpreted: Pulse oximetry: on room air kb is 98 %. Interpretation: normal. Counseling: I had a detailed discussion with the patient and/or guardian regarding: the historical points, exam findings, and any diagnostic results supporting the discharge/admit diagnosis, lab results, the need for outpatient follow up, a family practitioner, to return to the emergency department if symptoms worsen or persist or if there are any questions or concerns that arise at home. 09/26 18:09 Order name: COVID-19/FLU A+B; Complete Time: 18:18 EDMS Administered Medications: No medications were administered Disposition Summary: 09/26/20 18:18 [facility]charge [facility] Problem: new jr8 Symptoms: have improved jr8 Condition: Stable jr8 Diagnosis - Viral infection, unspecified jr8 Followup: jr8 - With: Private Physician - When: 2 - 3 days - Reason: Recheck today's complaints, Continuance of care, Re-evaluation by your physician Discharge Instructions: - Discharge Summary Sheet jr8 - Viral Respiratory Infection jr8 Forms: - Medication Reconciliation Form jr8 - Thank You Letter jr8 - Antibiotic Education jr8 - Prescription Opioid Use jr8 Prescriptions: - Zofran 4 mg Oral Tablet - take 1 tablet by ORAL route every 12 hours As needed; 20 tablet; Refills: 0, jr8 Product Selection Permitted Addendum: 09/27/2020 19:51 Co-signature as Attending Physician, Tripp Clark MD I agree with the assessment and r n plan of care. Attestation: The patient's history, exam findings, diagnostics, and a summary of any interventions or procedures was reviewed in detail with Elizabeth WHITAKER. Signatures: Dispatcher [employer] EDMS Elizabeth Donato, JULIANNE INFORMATION TECHNOLOGY DATA ANALYST-CkTripp Villegas MD MD rn Roszak, Josh, PA PA jr8 Oneida Wu RN RN kg Corrections: (The following items were deleted from the chart) 09/26 16:47 16:09 Influenza Screen (A \T\ B)+BA.LAB.BRZ ordered. EDMS EDMS 16:47 16:09 CORONAVIRUS+MR.LAB.BRZ ordered. EDMS EDMS
--- NOTE | 2020-09-26 18:19 | ER ---
Nurse's Notes [facility] Name: Harriett Gillette Age: 29 yrs Sex: Female : 1990 Arrival Date: 09/26/2020 Time: 15:46 Bed Waiting Private MD: Diagnosis: Viral infection, unspecified Presentation: 09/26 16:38 Chief complaint: Patient states: Headache, fever x 1 wk. Coronavirus screen: Client kg denies travel out of the [place] in the last 14 days. At this time, unable to obtain information related to travel outside the [place] Client presents with at least one sign or symptom that may indicate coronavirus-19. Standard/surgical mask placed on the client. Provider contacted for isolation considerations. Ebola Screen: Patient negative for fever greater than or equal to 101.5 degrees Fahrenheit, and additional compatible Ebola Virus Disease symptoms Patient denies exposure to infectious person. Patient denies travel to an Ebola-affected area in the 21 days before illness onset. Initial Sepsis Screen: Does the patient meet any 2 criteria? No. Patient's initial sepsis screen is negative. Does the patient have a suspected source of infection? No. Patient's initial sepsis screen is negative. Risk Assessment: Do you want to hurt yourself or someone else? Patient reports no desire to harm self or others. Onset of symptoms was September 19, 2020. 16:38 Method Of Arrival: Ambulatory kg 16:38 Acuity: TIFFANIE 4 kg Triage Assessment: 16:46 Headache History: Denies prior headaches. General: Appears in no apparent distress. kg Behavior is calm, cooperative, appropriate for age. Pain: Pain currently is 6 out of 10 on a pain scale. at worst was 7 out of 10 on a pain scale. level that patient reports is acceptable is 3 out of 10 on a pain scale. 19:01 Pain: Also complains of. kg Historical: - Allergies: 16:46 Codeine; kg - PMHx: 16:46 Diabetes - IDDM; GESTATIONAL DM; heart valve dysfunction; Pre-eclampsia; kg - PSHx: 16:46 None; kg - Immunization history:: Adult Immunizations not up to date, Client reports having NOT received the Covid vaccine. - Social history:: Smoking status: unknown. Screenin:00 Abuse screen: Denies threats or abuse. Denies injuries from another. Nutritional kg screening: No deficits noted. Tuberculosis screening: No symptoms or risk factors identified. Fall Risk None identified. Vital Signs: 16:38 BP 111 / 73; Pulse 70; Resp 18; Temp 97.7(TE); Pulse Ox 97% on R/A; Weight 58.97 kg; kg Height 5 ft. 0 in. (152.40 cm); Pain 7/10; 16:38 Body Mass Index 25.39 (58.97 kg, 152.40 cm) kg ED Course: 15:46 Patient arrived in ED. mr 16:08 [facility]C [facility] kb 16:08 Tripp Clrak MD is Attending Physician. kb 16:46 Triage completed. kg 19:00 Patient has correct armband on for positive identification. kg 19:00 No provider procedures requiring assistance completed. Patient did not have IV access kg during this emergency room visit. Administered Medications: No medications were administered Outcome: 18:18 Discharge ordered by MD. copeland 19:00 Discharged to home ambulatory. kg 19:00 Condition: good 19:00 Discharge instructions given to patient. 19:01 Patient left the ED. kg Signatures: Elizabeth Donato FNP-C FNP-Catrina Belle mr [address] [place] PA PA jr8 Oneida Wu, RN RN kg
[2020-09-26 19:12] VITALS: BP 111/73; TEMP 97.7; O2SAT 97
== END 2020-09-26 19:01 | disposition home or self-care (01) ==
LOC: ER 15:42
DX: B34.9 Viral infection, unspecified (principal); Z20.822 Contact with and (suspected) exposure to COVID-19; Z88.5 Allergy status to narcotic agent
CPT/HCPCS: 0240U; 99281

== ENCOUNTER 2020-10-04 16:57 | Emergency (ER) | payer SELFPAY ==
--- OUTSIDE RECORDS SUMMARY | 2020-10-04 16:58 | XMS REPORT | Continuity of Care Document ---
:1990 Author Organization [facility] t Address [address] [place] [address] Care Team Providers Name Role Phone Kostas Babcock DO Attending Clinician Nilda Cisneros Attending Clinician Payers Payer Name Policy Type Policy Number Effective Date Expiration Date S ource Problems This patient has no known problems. Allergies, Adverse Reactions, Alerts Allergy Allergy Status Severity Reaction(s) Onset Inactive Treating Comm ents Source Name Type Date Date Clinician No Known DA Active U [facility] Allergie 06-09 [facility] 00:00: [address] Medications This patient has no known medications. Procedures This patient has no known procedures. Encounters Start End Encounter Admission Attending Care Care Encounter Source Date/Time Date/Time Type Type Clinicians Facility Department ID 2020-05-09 2020-05-09 Patient Sadiq OHYANELIS [id number] 00:00:00 00:00:00 Outreach Joao [facility] [id number] Kostas [facility] [id number] NETTA [id number] 2020-04-28 2020-04-28 [facility] [id number] 10:17:04 11:41:16 Visit Anel Munguia [employer] PUBLISH[employer]IST [id number] [facility] [id number] MATERNAL [id number] & CHILD [address] [place] [address] Results Test Description Test Time Test Comments Results Result Comments Source GLUBED 2018-06-10 15:58:00 Test Item Value Reference Range Interpretation Comme nts GLUBED (test code = GLUBED) 148 mg/dL 65-110 H [id number] 10:51:00 Test Item Value Reference Range Interpretation Comments GLUBED (test code = GLUBED) 174 mg/dL 65-110 H [id number] 06:04:00 Test Item Value Reference Range Interpretation Comments GLUBED (test code = GLUBED) 83 mg/dL 65-110 N GLYCOSYLATED HEMOGLOBIN [id number] 04:40:00 Test Item Value Reference Range Interpretation [...] H (test code = MBG) COMPREHENSIVE METABOLIC [id number] 04:40:00 Test Item Value Reference Range Interpretation [...] fructosaminesho uld be considered for these patients. [id number] 00:14:00 Test Item Value Reference Range Interpretation Comments GLUBED (test code = GLUBED) 194 mg/dL 65-110 H COMPREHENSIVE METABOLIC [id number] 21:06:00 Test Item Value Reference Range Interpretation [...] (HA1C) (test code = GLYHGB) CBC W/AUTO [id number] 20:53:00 Test Item Value Reference Range Interpretation [...] (test NORMAL NORMAL code = PLTMR) URINALYSIS [id number] 20:08:00 Test Item Value Reference Range Interpretation [...] #/hpf NONE SEEN A URINE SAMPLE: CLEAN [id number] 20:01:00 Test Item Value Reference Range Interpretation Comments GLUBED (test code = GLUBED) 196 mg/dL 65-110 H URINALYSIS [id number] 19:53:00 Test Item Value Reference Range Interpretation [...]
[2020-10-04] MEDS ORDERED: ACETAMINOPHEN 500 MG TAB ONE (17:46)
[2020-10-04 19:02] LABS: SARS-COV-2 RT PCR POSITIVE (NEGATIVE)
--- NOTE | 2020-10-04 19:06 | ER ---
Nurse's Notes [facility] Name: Harriett Gillette Age: 29 yrs Sex: Female : 1990 Arrival Date: 10/04/2020 Time: 16:58 Bed Waiting Private MD: Diagnosis: Coronavirus infection, unspecified Presentation: 10/04 17:15 Chief complaint: Patient states: fever and chills since this morning. Coronavirus ss screen: Client presents with at least one sign or symptom that may indicate coronavirus-19. Ebola Screen: Patient denies exposure to infectious person. Patient denies travel to an Ebola-affected area in the 21 days before illness onset. Initial Sepsis Screen: Does the patient meet any 2 criteria? No. Patient's initial sepsis screen is negative. Does the patient have a suspected source of infection? No. Patient's initial sepsis screen is negative. Risk Assessment: Do you want to hurt yourself or someone else? Patient reports no desire to harm self or others. Onset of symptoms was October 04, 2020. 17:15 Method Of Arrival: Ambulatory ss 17:15 Acuity: TIFFANIE 4 ss Historical: - Allergies: 17:19 Codeine; ss - PMHx: 17:19 Diabetes - IDDM; heart valve dysfunction; GESTATIONAL DM; Pre-eclampsia; ss - Immunization history:: Client reports having NOT received the Covid vaccine. - Social history:: Smoking status: Patient reports the use of cigarette tobacco products, smokes one-half pack cigarettes per day. Vital Signs: 17:15 BP 110 / 76; Pulse 107; Resp 18; Temp 100.6; Pulse Ox 98% on R/A; Weight 61.23 kg; ss Height 5 ft. 0 in. (152.40 cm); Pain 6/10; 17:15 Body Mass Index 26.37 (61.23 kg, 152.40 cm) ss ED Course: 16:58 Patient arrived in ED. ds1 17:19 Triage completed. ss 17:19 Arm band placed on right wrist. ss 17:23 Elizabeth Donato FNP-C [facility]. kb 17:23 Tripp Clark MD is Attending Physician. kb Administered Medications: 17:22 Drug: Tylenol 1000 mg Route: PO; ss Outcome: 19:05 Discharge ordered by . kb 19:12 Discharged to home ambulatory, with family. iw 19:12 Condition: good 19:12 Discharge instructions given to patient, Instructed on discharge instructions, follow up and referral plans. Demonstrated understanding of instructions, follow-up care. 19:12 Patient left the ED. iw Signatures: Elizabeth Donato, NOC ENGINEER-C NOC ENGINEER-Venita Ibanez ds1 Analia Espino, RN RN iw Tata Colvin RN RN ss
--- NOTE | 2020-10-04 19:06 | EDPHYS ---
Physician Documentation [facility] Name: Harriett Gillette Age: 29 yrs Sex: Female : 1990 Arrival Date: 10/04/2020 Time: 16:58 Bed Waiting Private MD: ED Physician Tripp Clark HPI: 10/05 00:21 This 29 yrs old Female presents to ER via Ambulatory with complaints of kb Chills, Fever, Cough. 00:21 The patient or guardian reports cough, flu symptoms, low-grade fever. Onset: The kb symptoms/episode began/occurred this morning. Severity of symptoms: At their worst the symptoms were moderate, in the emergency department the symptoms are unchanged. Modifying factors: The symptoms are alleviated by nothing, the symptoms are aggravated by nothing. Associated signs and symptoms: Pertinent positives: fever, Pertinent negatives: chest pain, diarrhea, ear ache, nausea, rhinorrhea, sore throat, vomiting. The patient has not experienced similar symptoms in the past. The patient has not recently seen a physician. Patient reports chills, fever, cough that started this morning.. Historical: - Allergies: 10/04 17:19 Codeine; ss - PMHx: 17:19 Diabetes - IDDM; heart valve dysfunction; GESTATIONAL DM; Pre-eclampsia; ss - Immunization history:: Client reports having NOT received the Covid vaccine. - Social history:: Smoking status: Patient reports the use of cigarette tobacco products, smokes one-half pack cigarettes per day. ROS: 10/05 00:21 Abdomen/GI: Negative for abdominal pain, nausea, vomiting, diarrhea, and constipation. kb Constitutional: Positive for chills, fever, Negative for body aches, malaise, poor PO intake, weight loss. Respiratory: Positive for cough, Negative for dyspnea on exertion, hemoptysis, orthopnea, pleurisy, shortness of breath, sputum production, wheezing. Exam: 00:21 Constitutional: This is a well developed, well nourished patient who is awake, alert, kb and in no acute distress. Head/Face: Normocephalic, atraumatic. ENT: Moist Mucous membranes Cardiovascular: Regular rate and rhythm with a normal S1 and S2. No gallops, murmurs, or rubs. No pulse deficits. Respiratory: Respirations even and unlabored. No increased work of breathing, no retractions or nasal flaring. Skin: Warm, dry with normal turgor. Normal color. MS/ Extremity: Pulses equal, no cyanosis. Neurovascular intact. Full, normal range of motion. Neuro: Awake and alert, GCS 15, oriented to person, place, time, and situation. Moves all extremities. Normal gait. Psych: Awake, alert, with orientation to person, place and time. Behavior, mood, and affect are within normal limits. Vital Signs: 10/04 17:15 BP 110 / 76; Pulse 107; Resp 18; Temp 100.6; Pulse Ox 98% on R/A; Weight 61.23 kg; ss Height 5 ft. 0 in. (152.40 cm); Pain 6/10; 17:15 Body Mass Index 26.37 (61.23 kg, 152.40 cm) ss MDM: 17:24 Patient medically screened. kb 10/05 00:20 Data reviewed: vital signs, nurses notes. Data interpreted: Pulse oximetry: on room air kb is 98 %. Interpretation: normal. Counseling: I had a detailed discussion with the patient and/or guardian regarding: the historical points, exam findings, and any diagnostic results supporting the discharge/admit diagnosis, lab results, the need for outpatient follow up, a family practitioner, to return to the emergency department if symptoms worsen or persist or if there are any questions or concerns that arise at home. 10/04 17:26 Order name: Strep; Complete Time: 18:23 kb 10/04 18:23 Order name: Throat Culture EDMS 10/04 19:03 Order name: COVID-19/FLU A+B; Complete Time: 19:04 EDNE Administered Medications: 10/04 17:22 Drug: Tylenol 1000 mg Route: PO; ss Disposition: 10/05 13:24 Co-signature as Attending Physician, Tripp Clark MD I agree with the assessment and rn plan of care. Attestation: The patient's history, exam findings, diagnostics, and a summary of any interventions or procedures was reviewed in detail with Elizabeth WHITAKER. Disposition Summary: 10/04/20 19:05 Discharge Ordered Location: Home kb Condition: Stable kb Diagnosis - Coronavirus infection, unspecified kb Followup: kb - With: Emergency Department - When: As needed - Reason: Worsening of condition Followup: kb - With: Private Physician - When: 2 - 3 days - Reason: Recheck today's complaints, Continuance of care, Re-evaluation by your physician Discharge Instructions: - Discharge Summary Sheet kb - Viral Respiratory Infection, [id number] kb - COVID-19 kb Forms: - Medication Reconciliation Form kb - Thank You Letter kb - Antibiotic Education kb - Prescription Opioid Use kb Signatures: Dispatcher [employer] EDMS Elizabeth Donato, LORENZO-C LORENZO-Tripp Leslie MD MD rn Smirch, Shelby, RN RN ss Corrections: (The following items were deleted from the chart) 10/04 17:58 17:28 Influenza Screen (A \T\ B)+BA.LAB.BRZ ordered. EDMS EDMS 18:00 17:28 CORONAVIRUS+MR.LAB.BRZ ordered. EDMS EDMS
[2020-10-04 20:04] VITALS: BP 110/76; TEMP 100.6; O2SAT 98
== END 2020-10-04 19:12 | disposition home or self-care (01) ==
LOC: ER 16:57
DX: U07.1 COVID-19 (principal); E11.8 Type 2 diabetes mellitus with unspecified complications; F17.210 Nicotine dependence, cigarettes, uncomplicated; Z88.5 Allergy status to narcotic agent
CPT/HCPCS: 0240U; 87070; 87081; 99283

== ENCOUNTER 2020-12-23 19:11 | Emergency (ER) | payer SELFPAY ==
[2020-12-23] MEDS ORDERED: NA CHLORIDE 0.9% 1,000 ML ONE (20:25)
[2020-12-23] MEDS ORDERED: ONDANSETRON 4 MG/2 ML VIAL ONE (20:25)
[2020-12-23] MEDS ORDERED: MORPHINE 4 MG/ML SYR ONE ×2 (20:25→22:44)
[2020-12-23 20:52] LABS: Protime INR 0.97
[2020-12-23 20:57] LABS: Absolute Lymphocytes (CBC) 2.3 K/uL (0.7-4.9); Basophils % 0.6 % (0-1.3); Hematocrit 35.1 % (36.0-45.0); Lymphocytes % 18.3 % (15.3-44.8); MPV 8.8 fL (7.6-11.3); RBC Red Blood Cell Count 4.36 M/uL (3.86-4.86)
[2020-12-23 21:01] LABS: Urine Blood Negative (Negative); Urine Glucose 2+ (Negative); Urine Protein Negative (Negative); Urine pH 5.5 (5.0-7.0)
[2020-12-23 21:07] LABS: Albumin 3.7 g/dL (3.4-5.0); Bilirubin Direct 0.1 mg/dL (0-0.2); Potassium 3.6 mmol/L (3.5-5.1)
[2020-12-23 21:09] LABS: Bilirubin Total 0.4 mg/dL (0.2-1.0); Protein, Total 7.6 g/dL (6.4-8.2)
[2020-12-23] MEDS ORDERED: ACETAMINOPHEN 500 MG TAB ONE (21:24)
--- NOTE | 2020-12-23 21:38 | RAD REPORT ---
EXAM DESCRIPTION: CT - Soft Tissue Neck W/Contr CLINICAL HISTORY: SWELLING COMPARISON: No comparisons TECHNIQUE All CT scans are performed using dose optimization technique as appropriate and may includ e automated exposure control or mA/KV adjustment according to patient size. FINDINGS: Nasopharyngeal tissues are normal in appearance. Fossa Rosenmller are normal. Parapharyngeal fat triangles are symmetric. Tongue base structures are normal. Epiglottis and aryepiglottic folds are normal. Piriform sinuses are well aerated. The vocal cords are normal in appearance. Salivary glands are normal in appearance. Upper lung fong are clear. Included intracranial contents are unremarkable. Subcutaneous edema and soft tissue thickening underneath the chin. Prominent submental lymph nodes. T here is a prominent dental rené associated a left mandibular second premolar and a dental rené asso ciated with the adjacent molar. Much of the premolar is absent. There is a small amount of enhancing fluid located along the inner aspect of the mandible at this location measuring approximately 10 mill imeters. IMPRESSION: Soft tissue edema along the chin which may be secondary to a carious left mandibular sec ond premolar and molar. Small fluid collection/abscess measuring approximately 10 millimeters along t he inner aspect of the mandible at this location.
[2020-12-23] MEDS ORDERED: CLINDAMYCIN 900MG/D5W 900 MG/50 ML IVPB IV ONE (22:35)
[2020-12-23] MEDS ORDERED: AMPICILLIN/SULBACTAM 3GM/VIAL ONE (22:53)
[2020-12-23] MEDS ORDERED: NA CHLORIDE 0.9% 100 ML ONE (22:55)
--- NOTE | 2020-12-23 23:01 | EDPHYS ---
Physician Documentation [facility] Name: Harriett Gillette Age: 29 yrs Sex: Female : 1990 Arrival Date: 12/23/2020 Time: 19:14 Bed 4 Private MD: ED Physician Hal Elaine HPI: 12/23 20:25 This 29 yrs old Female presents to ER via Ambulatory with complaints of Facial cp Swelling, Toothache. 20:25 The patient presents with pain. cp 20:25 The problem is located in the left lower jaw. Onset: The symptoms/episode cp began/occurred 2 day(s) ago. Duration: The symptoms are continuous, and are steadily getting worse. Associated signs and symptoms: Pertinent positives: pain, left side facial and neck swelling, Pertinent negatives: fever, inability to swallow, inability to handle secretions. Severity of symptoms: in the emergency department the symptoms are unchanged, despite home interventions. 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 - Social history:: Smoking status: Patient reports the use of cigarette tobacco products, smokes one-half pack cigarettes per day. ROS: 20:30 Constitutional: Negative for body aches, chills, fever. cp 20:30 Eyes: Negative for injury, pain, redness, and discharge. cp 20:30 ENT: Positive for dental pain, ear pain, left lower jaw pain. 20:30 Neck: Negative for pain with movement, pain at rest, stiffness. 20:30 Cardiovascular: Negative for chest pain. 20:30 Respiratory: Negative for cough, shortness of breath, wheezing. 20:30 Abdomen/GI: Negative for abdominal pain, vomiting, diarrhea, constipation. 20:30 Skin: Negative for rash. 20:30 Neuro: Negative for altered mental status, headache, weakness. 20:30 All other systems are negative. Exam: 20:35 Constitutional: The patient appears in no acute distress, alert, awake, non-toxic, well cp developed, well nourished, uncomfortable. 20:35 Head/face: Noted is swelling, that is moderate, of the left mandible and submental, cp tenderness, that is severe, of the left mandible and submental. 20:35 Eyes: Periorbital structures: appear normal, Conjunctiva: normal, no exudate, no injection, Sclera: no appreciated abnormality, Lids and lashes: appear normal, bilaterally. 20:35 ENT: External ear(s): are unremarkable, Ear canal(s): are normal, clear, TM's: dullness, bilaterally, Nose: is normal, Mouth: Lips: moist, Oral mucosa: pink and intact, moist, Posterior pharynx: Airway: no evidence of obstruction, patent, Tonsils: are normal in appearance, Uvula: midline, erythema, is not appreciated, exudate, is not appreciated, Dental exam: dental caries, that is moderate, diffusely, gum swelling, that is mild, specifically in the left lower lateral gumline, missing teeth, specifically the lower left first molar (#19), pain, that is severe, specifically in the lower left first molar (#19), Voice: is normal. 20:35 Neck: ROM/movement: is normal, is supple, without pain, no range of motions limitations, no meningismus, no nuchal rigidity. 20:35 Chest/axilla: Inspection: normal. 20:35 Cardiovascular: Rate: normal, Rhythm: regular, JVD: is not appreciated. 20:35 Respiratory: the patient does not display signs of respiratory distress, Respirations: normal, no use of accessory muscles, no retractions, labored breathing, is not present, Breath sounds: are clear throughout, no decreased breath sounds, no stridor, no wheezing. 20:35 Abdomen/GI: Exam negative for discomfort, distension, guarding, Inspection: abdomen appears normal. 20:35 Neuro: Orientation: to person, place \\T\\ time. Mentation: is normal, Motor: moves all fours, strength is normal, Sensation: is normal. Vital Signs: 19:28 BP 134 / 91; Pulse 90; Resp 16; Temp 98.9(O); Pulse Ox 100% ; Weight 68.04 kg; Height 5 vg1 ft. 0 in. (152.40 cm); Pain 8/10; 21:00 BP 135 / 83; Pulse 79; Resp 18; Pulse Ox 100% on R/A; df1 22:00 BP 124 / 78; Pulse 78; Resp 18; Pulse Ox 100% on R/A; df1 23:05 BP 139 / 85; Pulse 75; Resp 18; Pulse Ox 99% on R/A; Pain 8/10; df1 23:36 Pain 2/10; tw5 23:36 Pain 2/10; tw5 19:28 Body Mass Index 29.29 (68.04 kg, 152.40 cm) vg1 MDM: 20:11 Patient medically screened. cp 22:50 Data reviewed: vital signs, nurses notes, lab test result(s), radiologic studies, CT cp scan, I have discussed the patient's presentation/case with the attending Emergency Department Physician;. 22:50 Counseling: I had a detailed discussion with the patient and/or guardian regarding: the cp historical points, exam findings, and any diagnostic results supporting the discharge/admit diagnosis, lab results, radiology results, the need to transfer to another facility, [facility] does not immediately have the required specialist. Response to treatment: the patient's symptoms have mildly improved after treatment. Physician consultation: was contacted at 22:48, regarding regarding transfer, to [facility]. patient's condition, accepting physician will be DR Alicea for ED to ED transfer. 12/23 20:19 Order name: Basic Metabolic Panel 12/23 20:19 Order name: CBC with Diff; Complete Time: 21:24 cp 12/23 21:24 Interpretation: Normal except: WBC 12.30; HGB 11.5; HCT 35.1; MCH 26.5; VIVIAN% 74.4; NEUT cp A 9.1. 12/23 20:19 Order name: Hepatic Function; Complete Time: 21:24 cp 12/23 20:19 Order name: Lipase; Complete Time: 21:24 cp 12/23 20:19 Order name: PT-INR; Complete Time: 21:24 cp 12/23 20:20 Order name: Basic Metabolic Panel; Complete Time: 21:24 EDMS 12/23 21:24 Interpretation: Normal except: GLUC 291; GFR 76. cp 12/23 21:00 Order name: Urine Dipstick-Ancillary; Complete Time: 21:24 EDMS 12/23 21:04 Order name: Urine --Ancillary (enter results); Complete Time: 21:24 tt3 12/23 21:47 Order name: Procalcitonin 12/23 21:47 Order name: Lactate cp 12/23 21:47 Order name: Blood Culture Adult (2) 12/23 22:23 Order name: COVID-19 (Coronavirus) Document "Date of Onset" if Symptomatic 12/23 22:46 Order name: COVID-19/FLU A+B/RSV EDMS 12/23 20:19 Order name: Urine Dipstick-Ancillary (obtain specimen); Complete Time: 20:57 cp 12/23 20:19 Order name: Urine Test (obtain specimen); Complete Time: 20:56 12/23 20:19 Order name: IV Saline Lock; Complete Time: 20:44 12/23 20:19 Order name: Labs collected and sent; Complete Time: 20:44 12/23 20:19 Order name: CT Soft Tissue Neck W/contr; Complete Time: 21:45 12/23 21:46 Interpretation: Report reviewed. 12/23 23:47 Order name: CREATININE WHOLE BLOOD EDMS Administered Medications: 20:43 Drug: morphine 4 mg Route: IVP; Site: left antecubital; df1 23:36 Follow up: Pain 2/10 Adult; Response: No adverse reaction; Pain is decreased; RASS: tw5 Alert and Calm (0) 20:43 Drug: Zofran (Ondansetron) 4 mg Route: IVP; Site: left antecubital; df1 23:36 Follow up: Response: No adverse reaction tw5 20:44 Drug: NS 0.9% 1000 ml Route: IV; Rate: 1 bolus; Site: left antecubital; df1 23:36 Follow up: Response: No adverse reaction; IV Status: Completed infusion tw5 21:28 Drug: Tylenol 1000 mg Route: PO; kc4 23:36 Follow up: Response: No adverse reaction tw5 23:02 Drug: Unasyn (ampicillin-sulbactam) 3 grams Route: IVPB; Infused Over: 30 mins; Site: df1 left antecubital; 23:35 Follow up: Response: No adverse reaction; IV Status: Completed infusion tw5 23:03 CANCELLED (Physician Discretion): Clindamycin 900 mg IVPB once over 30 mins; (mix in 50 df1 mL) 23:07 Drug: morphine 4 mg Route: IVP; Site: left antecubital; df1 23:36 Follow up: Pain 2/10 Adult; Response: No adverse reaction; Pain is decreased tw5 Disposition: 12/24 00:00 Chart complete. cp 00:58 Co-signature as Attending Physician, Hal Elaine MD. pkl Disposition Summary: 12/23/20 23:00 Transfer Ordered Transfer Location: [facility] cp Reason: Higher level of care cp Condition: Stable cp Problem: new cp Symptoms: have improved cp Accepting Physician: DR Alicea(12/24/20 00:38) df1 Diagnosis - Disorder of teeth and supporting structures, unspecified cp - Cellulitis and acute lymphangitis of face and neck cp Forms: - Medication Reconciliation Form cp - SBAR form cp Signatures: Dispatcher [employer] EDMS Hal Elaine MD MD pkl Jalil Stockton PA PA cp Pippa William RN RN vg1 Patrizia Mckeon kc4 Concepción Brambila df1 Roberta Stout tw5 Corrections: (The following items were deleted from the chart) 12/23 22:46 22:24 CORONAVIRUS ordered. EDMS EDMS 23:03 21:47 Clindamycin 900 mg IVPB once over 30 mins; (mix in 50 mL) ordered. cp df1 12/24 00:38 11 23:00 DR Alicea cp df1
--- NOTE | 2020-12-23 23:01 | ER ---
Nurse's Notes [facility] Name: Harriett Gillette Age: 29 yrs Sex: Female : 1990 Arrival Date: 12/23/2020 Time: 19:14 Bed 4 Private MD: Diagnosis: Disorder of teeth and supporting structures, unspecified;Cellulitis and acute lymphangitis of face and neck Presentation: 12/23 19:28 Chief complaint: Patient states: Left sided jaw pain began 12/21/20. States vg1 'severe pain and swelling' began today. Also states Left ear pain. Denies NV. Coronavirus screen: Vaccine status: Patient reports being unvaccinated. Ebola Screen: Patient negative for fever greater than or equal to 101.5 degrees Fahrenheit, and additional compatible Ebola Virus Disease symptoms. Initial Sepsis Screen: Does the patient meet any 2 criteria? No. Patient's initial sepsis screen is negative. Does the patient have a suspected source of infection? No. Patient's initial sepsis screen is negative. Risk Assessment: Do you want to hurt yourself or someone else? Patient reports no desire to harm self or others. Onset of symptoms was December 21, 2020. 19:28 Method Of Arrival: Ambulatory vg1 19:28 Acuity: TIFFANIE 3 vg1 23:59 Note Pt states left side facial swelling and neck swelling starting this mornings. tw5 Airway patent. Gag reflex +. Swelling noted to left jaw and left neck. Denies N/V/fever. No open skin or drainage. LS CTA. Resp even and unlabored. Triage Assessment: 19:30 General: Appears in no apparent distress. uncomfortable, Behavior is calm, cooperative. vg1 Pain: Complains of pain in left cheek and left mandible Pain currently is 8 out of 10 on a pain scale. EENT: Reports pain in left cheek and left mandible. 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 - Social history:: Smoking status: Patient reports the use of cigarette tobacco products, smokes one-half pack cigarettes per day. Screenin:45 Abuse screen: Denies threats or abuse. Nutritional screening: No deficits noted. df1 Tuberculosis screening: No symptoms or risk factors identified. Fall Risk None identified. Assessment: 23:37 General: Appears in no apparent distress. Behavior is calm, cooperative, appropriate tw5 for age. 23:37 Pain: Pain currently is 2 out of 10 on a pain scale. tw5 23:58 Neuro: No deficits noted. Cardiovascular: No deficits noted. Respiratory: Airway is tw5 patent Trachea midline Respiratory effort is even, unlabored, Respiratory pattern is regular, symmetrical. GI: No deficits noted. : No deficits noted. EENT: No deficits noted. Derm: No deficits noted. Derm: No deficits noted. Musculoskeletal: No deficits noted. Vital Signs: 19:28 BP 134 / 91; Pulse 90; Resp 16; Temp 98.9(O); Pulse Ox 100% ; Weight 68.04 kg; Height 5 vg1 ft. 0 in. (152.40 cm); Pain 8/10; 21:00 BP 135 / 83; Pulse 79; Resp 18; Pulse Ox 100% on R/A; df1 22:00 BP 124 / 78; Pulse 78; Resp 18; Pulse Ox 100% on R/A; df1 23:05 BP 139 / 85; Pulse 75; Resp 18; Pulse Ox 99% on R/A; Pain 8/10; df1 23:36 Pain 2/10; tw5 23:36 Pain 2/10; tw5 19:28 Body Mass Index 29.29 (68.04 kg, 152.40 cm) vg1 ED Course: 19:14 Patient arrived in ED. wm 19:30 Triage completed. vg1 19:30 Arm band placed on. vg1 20:05 Jalil Stockton PA is PHCP. cp 20:05 Hal Elaine MD is Attending Physician. cp 20:08 Concepción Brambila is Primary Nurse. df1 20:44 Basic Metabolic Panel Sent. df1 20:44 CBC with Diff Sent. df1 20:44 Hepatic Function Sent. df1 20:44 Lipase Sent. df1 20:44 Basic Metabolic Panel Sent. df1 20:44 PT-INR Sent. df1 20:46 Patient has correct armband on for positive identification. Placed in gown. Bed in low df1 position. Call light in reach. Side rails up X 1. Pulse ox on. NIBP on. 20:46 Inserted saline lock: 20 gauge in left antecubital area, using aseptic technique. df1 20:46 No provider procedures requiring assistance completed. df1 20:56 CT Soft Tissue Neck W/contr Sent. df1 21:14 CT Soft Tissue Neck W/contr In Process Unspecified. EDMS 22:42 Initiated transfer at [facility] with Sanna Trevino. Was placed on hold and then the call tt3 was connected with ZACK Quiñones, pt provider for consultation with their physician. 22:50 Sanna Trevino gave admin approval. The pt is going to [facility]. The accepting tt3 physician is Dr. Mendoza. Nurse to call report to . Face sheet to be faxed to per Sanna's request. 23:02 COVID-19/FLU A+B/RSV Sent. df1 23:03 COVID-19 (Coronavirus) Document "Date of Onset" if Symptomatic Sent. df1 23:03 Blood Culture Adult (2) Sent. df1 23:03 Lactate Sent. df1 23:03 Procalcitonin Sent. df1 23:37 Door closed. Noise minimized. Lights dimmed. Moved to private room. Verbal reassurance tw5 given. Administered Medications: 20:43 Drug: morphine 4 mg Route: IVP; Site: left antecubital; df1 23:36 Follow up: Pain 2/10 Adult; Response: No adverse reaction; Pain is decreased; RASS: tw5 Alert and Calm (0) 20:43 Drug: Zofran (Ondansetron) 4 mg Route: IVP; Site: left antecubital; df1 23:36 Follow up: Response: No adverse reaction tw5 20:44 Drug: NS 0.9% 1000 ml Route: IV; Rate: 1 bolus; Site: left antecubital; df1 23:36 Follow up: Response: No adverse reaction; IV Status: Completed infusion tw5 21:28 Drug: Tylenol 1000 mg Route: PO; kc4 23:36 Follow up: Response: No adverse reaction tw5 23:02 Drug: Unasyn (ampicillin-sulbactam) 3 grams Route: IVPB; Infused Over: 30 mins; Site: df1 left antecubital; 23:35 Follow up: Response: No adverse reaction; IV Status: Completed infusion tw5 23:03 CANCELLED (Physician Discretion): Clindamycin 900 mg IVPB once over 30 mins; (mix in 50 df1 mL) 23:07 Drug: morphine 4 mg Route: IVP; Site: left antecubital; df1 23:36 Follow up: Pain 03/29 Adult; Response: No adverse reaction; Pain is decreased tw5 Outcome: 23:00 ER care complete, transfer ordered by MD. alanis 11 00:38 Patient left the ED. df1 Signatures: Dispatcher [employer] EDJalil Mixon PA PA cp Garcia, Victoria, RN RN vg1 Galen Diallo tt3 Hanh oRsenthal Kourtney kc4 Concepción Brambila df1 Roberta Stout tw5
[2020-12-23 23:28] LABS: SARS-COV-2 RT PCR NEGATIVE (NEGATIVE)
[2020-12-24 00:46] VITALS: TEMP 98.9
[2020-12-24 00:51] VITALS: BP 139/85; O2SAT 99
--- OUTSIDE RECORDS SUMMARY | 2020-12-30 14:46 | XMS REPORT | Continuity of Care Document ---
:1990 Author Organization Formerly [facility] t Address [address] [place] [address] Care Team Providers Name Role Phone Nilda CONTRERAS Primary Care Physician Unavailable DEANNE Attending Clinician Unavailable Deanne PACHECO Attending Clinician Kostas Babcock DO Attending Clinician Nilda Cisneros Attending Clinician Nilda CONTRERAS Attending Clinician Unavailable Doctor Unassigned, Name Attending Clinician Unavailable DEANNE Admitting Clinician Unavailable Deanne PACHECO Admitting Clinician Payers Payer Name Policy Type Policy Number Effective Date Expiration Date S ource Advance Directives Directive Decision Effective Termination Comments Source Date Date Healthcare Agents on N/A [facility] Care [phone] (Mobile) Problems Condition Condition Condition Status Onset Resolution Last Treating Co mments Source Name Details Category Date Date Treatment Clinician Date Submandibu Submandibu Disease Active 2020-02 U nivers lar lar 1-07 ity of abscess abscess 00:00: [address] Cervical Cervical Disease Active Overview: Un nancy Papanicola Papanicola 3-17 Formattin ity of ou smear ou smear 00:00: g of this Negro as negative negative 00 note Medica l within within might be Branch last 12 last 12 different months months from the original. NIL pap 10/2018, see scanned records Other Other Disease Active Univers general general 3-12 [place] of counseling [place] and advice and advice 00 Me dical for for Branch contracept contracept zelda zelda management management Abnormal Abnormal Disease Active Unive rs glucose glucose 2-13 ity of 00:00: [address] Abnormal Abnormal Disease Active Unive rs maternal maternal 2-12 ity of glucose glucose 00:00: [place] tolerance, tolerance, 00 Me dical antepartum antepartum Br anch History of History of Disease Active U nivers gestationa gestationa 2-11 [place] y of l diabetes l diabetes [place] [facility] History of History of Disease Active U nivers pre-eclamp pre-eclamp 2-11 it y of blanca in blanca in 00:00: [place] prior prior 00 Medical , , Br anch currently currently Multiparit Multiparit Disease Active U nivers y y 2-11 ity of 00:00: [address] Diet Diet Disease Active Overview: [facility] controlled controlled 4-10 A2GDM- it y of gestationa gestationa 00:00: glybnurid [place] l diabetes l diabetes 00 e 2.5 mg Medical mellitus mellitus Q am and Bran ch (GDM) in (GDM) in 5 mg Q pm second second trimester trimester High risk High risk Disease Active 2014-02 Uni vers , , 1-15 it y of antepartum antepartum 00:00: [address] Allergies, Adverse Reactions, Alerts Allergy Allergy Status Severity Reaction(s) Onset Inactive Treating Comm ents Source Name Type Date Date Clinician No Known DA Active U [facility] 00:00: [address] NO KNOWN Drug Active Univers ALLERGIE Class ity of S [facility] Social History Social Habit Start Date Stop Date Quantity Comments Source Exposure to Not sure University of SARS-CoV-2 [facility] (event) [place] Alcohol intake 2020-04-28 2020-04-28 0 /d University of 00:00:00 00:00:00 [facility] Tobacco Comment 2018-03-30 2018-03-30 smokes 3 Universit y of 00:00:00 00:00:00 cigarettes per [place] [facility] aleksey day. pt states she Branch stopped smoking since she found out about . Tobacco use and 2015-10-04 2015-10-04 Never used Universit y of exposure 00:00:00 00:00:00 [facility] History of 2014-12-22 Cigarette Smoker Universi ty of tobacco use 00:00:00 [facility] Sex Ass[birth year] At [birth year] Universit y of 00:00:00 00:00:00 [facility] Smoking Status Start Date Stop Date Source Current every day smoker 2015-10-04 00:00:00 Uni versity of [facility] Medications Ordered Filled Start Stop Current Ordering Indication Dosage Frequency Signature Comments Components Source Medication Medication Date Date Medication? Clinician (SIG) Name Name dapaglifloz 2020-02 Yes Xigduo XR U nivers in-metformi 1-07 10 ity of n (XIGDUO 17:25: mg-1,000 [place] XR[place] 56 mg Medical 10-1,000 mg tablet,ext Br anch TBph ended release Take 1 tablet every day by oral route for 30 days. chlorhexidi 2020-02 Yes 15mL 15 mL, Univ ers ne 1-07 Oral ity of (PERIDEX) 14:00: [place] 0.12 % 00 Spit Out), Medical mouthwash BID, First Bran ch 15 mL dose on 12/24/20 at 0800, Until Discontinu ed, Routine Sliding 2020-02 Yes Subcutaneo Univ ers Scale 1-07 us, TID ity of Insulin - 14:00: MEALS+HS, Negro as Lispro 00 First dose Medical (HumaLOG) + on [place] Branch Fsbg 12/24/20 at Testing 0800, Until Discontinu ed, Routine lactated 2020-02 Yes 1000mL at 50 Univer s ringers IV 1-07 mL/hr, ity of infusion 07:30: 1,000 [place], [place] 1,000 mL 00 IV Medical Infusion, Branch CONTINUOUS , Starting on 12/24/20 at 0130, Until Discontinu ed, Routine naloxone 2020-02 Yes .1mg 0.1 mg, Univer s (NARCAN) 107 Slow IV ity of injection 07:21: Push, PRN Negro as 0.1 mg 11 - SEE Medical INSTRUCTIO Branch NS, Starting on [place] 12/24/20 at 0121, Until Discontinu ed, Routine, Sedation/R espiratory Depression , See admin instructio ns. morpHINE 2020-02- Yes 2mg 2 mg, Slow Un nancy injection 2 02-23 1109 IV Push, ity of mg 07:21: 07:20 Q3HPRN, [place] 11 :11 Starting Medical on [place] Branch 12/24/20 at 0121, Until 12/26/20 at 0120, Routine, Pain (scale 7-10) HYDROcodone 2020-02 Yes 1{tbl} 1 tablet, Univers -acetaminop 1-07 Oral, ity of hen (NORCO 07:21: Q6HPRN, [place] 5) 5-325 mg 10 Starting Medi aleksey tablet 1 on [facility] tablet 12/24/20 at 0121, Until Discontinu ed, Routine, Pain (scale 4-6) ibuprofen 2020-02 Yes 600mg 600 mg, Univ ers (ADVIL 1-07 Oral, ity of CHILDREN'S) 07:21: Q6HPRN, Negro as 100 mg/5 mL 04 Starting Medi aleksey oral on [facility] suspension 12/24/20 at 600 mg 0121, Until Discontinu ed, Routine, Pain (scale 1-3) ondansetron 2020-02 Yes 4mg 4 mg, Slow Univers (ZOFRAN 1-07 IV Push, ity of (PF)) 07:20: Q4HPRN, [place] injection 4 54 Starting Medi aleksey mg on [place] Branch 12/24/20 at 0120, Until Discontinu ed, Routine, Nausea and Vomiting (N/V) chlorhexidi 2020-02 Yes [id number] 15mL Swish and Univers ne 0.12 % 07 spit out ity of mouthwash 00:00: 15 mL 2 [place] 00 (two) Medical times Branch daily. ibuprofen 2020-02 Yes [id number] 600mg Take 30 mL Univers 100 mg/5 mL 07 by mouth ity of oral 00:00: every 6 [place] suspension 00 (six) Medical hours as Branch needed for Pain (scale 1-3). HYDROcodone 2020-02- Yes [id number] 1{tbl} Take 1 U nivers -acetaminop 02-2315 tablet by it y of hen 5-325 00:00: 05:59 mouth [place] mg tablet 00 :00 every 6 Medical (six) Branch hours as needed for Pain (scale 4-6) for up to 7 days. Indication s: acute pain amoxicillin 2020-02- Yes [id number] 1{tbl} Take 1 Univers -clavulanat 02-23 tablet by it y of e 00:00: 05:59 mouth 2 [place] (AUGMENTIN) 00 :00 (two) Medical 875-125 mg times Branch per tablet daily for 7 days. Blood-Gluco Yes [id number] Use as Univers se Meter 2-18 directed ity of (FREESTYLE 00:00: [place] LITE METER) 00 Medical Kit Branch blood sugar Yes [id number] Use as Univers diagnostic 2-18 directed ity o f (FREESTYLE 00:00: [place] LITE 00 Medical STRIPS) Branch strip lancets Yes [id number] Use as U nivers gauge Misc 2-18 directed ity o f 00:00: [place] 00 Medical Branch Blood-Gluco Yes [id number] Use as Univers se Meter 2-18 directed ity of (FREESTYLE 00:00: [place] LITE METER) 00 Medical Kit Branch blood sugar Yes [id number] Use as Univers diagnostic 2-18 directed ity o f (FREESTYLE 00:00: [place] LITE 00 Medical STRIPS) Branch strip lancets 17 Yes [id number] Use as U nivers gauge Misc 2-18 directed ity o f 00:00: [place] 00 Medical Branch Blood-Gluco Yes [id number] Use as Univers se Meter 2-18 directed ity of (FREESTYLE 00:00: [place] LITE METER) 00 Medical Kit Branch blood sugar Yes [id number] Use as Univers diagnostic 2-18 directed ity o f (FREESTYLE 00:00: [place] LITE 00 Medical STRIPS) Branch strip lancets 17 Yes [id number] Use as U nivers gauge Misc 2-18 directed ity o f 00:00: [place] 00 Medical Branch Blood-Gluco Yes [id number] Use as Univers se Meter 2-18 directed ity of (FREESTYLE 00:00: [place] LITE METER) 00 Medical Kit Branch blood sugar Yes [id number] Use as Univers diagnostic 2-18 directed ity o f (FREESTYLE 00:00: [place] LITE 00 Medical STRIPS) Branch strip lancets 17 Yes [id number] Use as U nivers gauge Misc 2-18 directed ity o f 00:00: [place] 00 Medical Branch Blood-Gluco Yes [id number] Use as Univers se Meter 2-18 directed ity of (FREESTYLE 00:00: [place] LITE METER) 00 Medical Kit Branch blood sugar Yes [id number] Use as Univers diagnostic 2-18 directed ity o f (FREESTYLE 00:00: [place] LITE 00 Medical STRIPS) Branch strip lancets 17 Yes [id number] Use as U nivers gauge Misc 2-18 directed ity o f 00:00: [place] 00 Medical Branch Yes [id number] 1{packe Take 1 Univers vit 2-12 t} Packet by ity of 33-iron-fol 00:00: mouth [place] ic-dha 00 daily. Medical (SELECT-OB Branch + DHA) 29 mg iron-1 mg -250 mg combo pack Yes [id number] 1{packe Take 1 Univers vit 2-12 t} Packet by ity of 33-iron-fol 00:00: mouth [place] ic-dha 00 daily. Medical (SELECT-OB Branch + DHA) 29 mg iron-1 mg -250 mg combo pack Yes [id number] 1{packe Take 1 Univers vit 2-12 t} Packet by ity of 33-iron-fol 00:00: mouth [place] ic-dha 00 daily. Medical (SELECT-OB Branch + DHA) 29 mg iron-1 mg -250 mg combo pack Yes [id number] 1{packe Take 1 Univers vit 2-12 t} Packet by ity of 33-iron-fol 00:00: mouth [place] ic-dha 00 daily. Medical (SELECT-OB Branch + DHA) 29 mg iron-1 mg -250 mg combo pack 2019-0 Yes [id number] 1{packe Take 1 Univers vit 2-12 t} Packet by ity of 33-iron-fol 00:00: mouth [place] ic-dha 00 daily. Medical (SELECT-OB Branch + DHA) 29 mg iron-1 mg -250 mg combo pack Immunizations Ordered Filled Immunization Date Status Comments [facility] e Immunization Name Name Influenza Virus 2020-04-28 Completed Universit y of Vaccine Quad .5 mL 00:00:00 [place] Medical IM 6+ MO Branch Influenza Virus 2020-04-28 Completed Universit y of Vaccine Quad .5 mL 00:00:00 [place] Medical IM 6+ MO Branch Influenza Virus 2020-04-28 Completed Universit y of Vaccine Quad .5 mL 00:00:00 [facility] IM 6+ MO Branch Influenza Virus 2020-04-28 Completed Universit y of Vaccine Quad .5 mL 00:00:00 [facility] IM 6+ MO Branch HPV9 2016-11-06 Completed University of 00:00:00 [facility] HPV9 2016-11-06 Completed University of 00:00:00 [facility] HPV9 2016-11-06 Completed University of 00:00:00 [facility] HPV9 2016-11-06 Completed University of 00:00:00 [facility] HPV9 2016-11-06 Completed University of 00:00:00 [facility] HPV9 2016-09-05 Completed University of 00:00:00 [facility] HPV9 2016-09-05 Completed University of 00:00:00 [facility] HPV9 2016-09-05 Completed University of 00:00:00 [facility] HPV9 2016-09-05 Completed University of 00:00:00 [facility] HPV9 2016-09-05 Completed University of 00:00:00 [facility] TDAP 2015-05-25 Completed University of 00:00:00 [facility] TDAP 2015-05-25 Completed University of 00:00:00 [facility] TDAP 2015-05-25 Completed University of 00:00:00 [facility] TDAP 2015-05-25 Completed University of 00:00:00 [facility] TDAP 2015-05-25 Completed University of 00:00:00 [facility] Vital Signs Vital Name Observation Time Observation Value Comments Source Systolic blood 2020-12-24 17:05:00 125 mm[Hg] Univer sity of pressure [place] [facility] Diastolic blood 2020-12-24 17:05:00 87 mm[Hg] Unive rsity of pressure [facility] Heart rate 2020-12-24 17:05:00 91 /min Universi ty of [facility] Body temperature 2020-12-24 17:05:00 36.22 [place] Univ ersity of [facility] Respiratory rate 2020-12-24 17:05:00 18 /min Univ ersity of [facility] Oxygen saturation in 2020-12-24 17:05:00 98 /min University Arterial blood by [facility] Pulse oximetry Branch Body weight 2020-12-24 06:32:00 68.04 kg Universi ty of [place] [facility] [place] BMI 2020-12-24 06:32:00 28.34 kg/m2 Universi ty of [facility] Systolic blood 2020-04-28 16:31:00 106 mm[Hg] Univer sity of pressure [place] [facility] Diastolic blood 2020-04-28 16:31:00 73 mm[Hg] Unive rsity of pressure [place] [facility] [place] Heart rate 2020-04-28 16:31:00 77 /min Universi ty of [place] [facility] [place] Body temperature 2020-04-28 16:31:00 36.72 [place] Univ ersity of [facility] Respiratory rate 2020-04-28 16:31:00 16 /min Univ ersity of [facility] Body height 2020-04-28 16:31:00 154.9 cm Universi ty of [place] [facility] Body weight 2020-04-28 16:31:00 59.081 kg Universi ty of [place] [facility] BMI 2020-04-28 16:31:00 24.61 kg/m2 Universi ty of [place] [facility] Systolic blood 2020-04-28 16:31:00 106 mm[Hg] Univer sity of pressure [place] [facility] Diastolic blood 2020-04-28 16:31:00 73 mm[Hg] Unive rsity of pressure [facility] Heart rate 2020-04-28 16:31:00 77 /min Universi ty of [facility] Body temperature 2020-04-28 16:31:00 36.72 [place] [facility] Respiratory rate 2020-04-28 16:31:00 16 /min [facility] Body height 2020-04-28 16:31:00 154.9 cm [facility] Body weight 2020-04-28 16:31:00 59.081 kg [facility] BMI 2020-04-28 16:31:00 24.61 kg/m2 [facility] Procedures Procedure Date / Time Performed Performing Clinician Sourc e POCT GLUCOSE 2020-12-24 14:10:00 Terrance Ramírez [facility] (AUTOMATED) [facility] ASSIGNMENT OF BENEFITS 2020-04-28 17:41:20 Doctor Unassigned, No [facility] Name [facility] FLU VACC ([id number]), 2020-04-28 17:21:26 Anel Contreras [facility] 6+ MONTHS, IM, QUAD Medical Bran ch Encounters Start End Encounter Admission Attending Care Care Encounter Source Date/Time Date/Time Type Type Clinicians Facility Department ID 2020 2020 Outpatient Emily RAMÍREZ [facility] [id number] Univers 14:00:00 14:00:00 TERRANCE [id number] [facility] 2020 2020 Outpatient Emily RAMÍREZ [facility] [id number] Univers 14:00:00 14:00:00 [facility] 2020-12-26 2020-12-26 Outpatient Emily RAMÍREZ [facility] [id number] Univers 16:30:00 16:30:00 [facility] [id number] [facility] 2020-12-26 2020-12-26 Outpatient Emily RAMÍREZ [facility] [id number] Univers 16:30:00 16:30:00 [facility] 2020-12-24 2020-12-24 Outpatient X DEANNE [facility] HERMILO [id number] Univers 01:34:00 17:25:00 [facility] 2020-12-24 2020-12-24 Emergency DIVINE Ramírez [id number] Univers 01:34:00 17:25:00 Terrance CORDERO [id number] it y [facility] [id number] Negro as [phone] [facility] aleksey 091 Branch 2020-05-09 2020-05-09 Patient Sadiq VAYANELIS [id number] Univers 00:00:00 00:00:00 Outreach Joao PRIMARY [id number] i ty of [facility] [id number] [place] [id number] [place] dical 388 Branch 2020-05-09 2020-05-09 Patient Sadiq [facility] [id number] 00:00:00 00:00:00 Outreach Joao PRIMARY [id number] [facility] [id number] PAVILLION [id number] 2020-04-28 2020-04-[address] 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 [id number] 10:17:04 11:41:16 Visit Anel C SPECIAL EFFECTS MAKEUP ARTIST [id number] [facility] [id number] MATERNAL [id number] & CHILD [address] [place] [address] 2020-04-28 2020-04-28 Outpatient R AKINSIPE, [facility] [id number] Univers 10:15:00 10:15:00 ANEL [id number] ity o f [facility] 2020-04-28 2020-04-28 Outpatient R AKINSIPE, [facility] [id number] Univers 10:15:00 10:15:00 ANEL perryy o f [facility] 2020-04-28 2020-04-28 Orders Doctor CHRISTIANSON [id number] 00:00:00 00:00:00 Only Unassigned, GIL [id number] ity of [place] [facility] [id number] Negro as [phone] [address] Results Test Description Test Time Test Comments Results Result Comments Source POCT GLUCOSE (AUTOMATED) 2020-12-24 14:12:21 Test Item Value Reference Range Interpretation Comme nts POCT GLU (test code = 4425298688) 212 mg/dL 70-110 H Lab Interpretation (test code = 38640-8) [facility]:58[facility]00 Test Item Value Reference Range Interpretation Comments GLUBED (test code = GLUBED) 148 mg/dL 65-110 H [id number] 10:51:00 Test Item Value Reference Range Interpretation Comments GLUBED (test code = GLUBED) 174 mg/dL 65-110 H [id number] 06:04:00 Test Item Value Reference Range Interpretation Comments GLUBED (test code = GLUBED) 83 mg/dL 65-110 N GLYCOSYLATED HEMOGLOBIN [id number] 04:40:00 Test Item Value Reference Range Interpretation [...] H (test code = MBG) COMPREHENSIVE METABOLIC [id number] 04:40:00 Test Item Value Reference Range Interpretation [...] fructosaminesho uld be considered for these patients. [id number] 00:14:00 Test Item Value Reference Range Interpretation Comments GLUBED (test code = GLUBED) 194 mg/dL 65-110 H COMPREHENSIVE METABOLIC [id number] 21:06:00 Test Item Value Reference Range Interpretation [...] (HA1C) (test code = GLYHGB) CBC W/AUTO [id number] 20:53:00 Test Item Value Reference Range Interpretation [...] (test NORMAL NORMAL code = PLTMR) URINALYSIS [id number] 20:08:00 Test Item Value Reference Range Interpretation [...] #/hpf NONE SEEN A URINE SAMPLE: CLEAN [id number] 20:01:00 Test Item Value Reference Range Interpretation Comments GLUBED (test code = GLUBED) 196 mg/dL 65-110 H URINALYSIS [id number] 19:53:00 Test Item Value Reference Range Interpretation [...]
== END 2020-12-24 00:38 | disposition short-term general hospital (02) ==
LOC: ER 19:11
DX: L03.211 Cellulitis of face (principal); I89.1 Lymphangitis; L03.221 Cellulitis of neck; K02.9 Dental caries, unspecified; E11.9 Type 2 diabetes mellitus without complications; Z20.822 Contact with and (suspected) exposure to COVID-19
CPT/HCPCS: 0241U; 36415; 70491; 80048; 80076; 81003; 81025; 82565; 83605; 83690; 84145; 85025; 85610; 87040; 96361; 96365; 96375; 99284; J0295; J2405; J7030; Q9967

== ENCOUNTER 2021-04-26 09:12 | Emergency (ER) | payer SELFPAY ==
--- OUTSIDE RECORDS SUMMARY | 2021-04-26 09:17 | XMS REPORT | Continuity of Care Document ---
:1990 Author Organization [facility] t Address [address] [place] [address] Care Team Providers Name Role Phone Karmen CONTRERAS Primary Care Physician Unavailable Doctor Unassigned, Name Attending Clinician Unavailable DEANNE Attending Clinician Unavailable Deanne PACHECO Attending Clinician Kostas Babcock DO Attending Clinician Karmen Cisneros Attending Clinician Karmen CONTRERAS Attending Clinician Unavailable DEANNE Admitting Clinician Unavailable Deanne PACHECO Admitting Clinician Payers Payer Name Policy Type Policy Number Effective Date Expiration Date S ource Advance Directives Directive Decision Effective Termination Comments Source Date Date Healthcare Agents on N/A [facility] Care [phone] (Mobile) Problems Condition Condition Condition Status Onset Resolution Last Treating Co mments Source Name Details Category Date Date Treatment Clinician Date Submandibu Submandibu Disease Active 2020-02 U nivers lar lar 1-07 ity of abscess abscess 00:00: [address] Cervical Cervical Disease Active Overview: Un [...] rs glucose glucose 2-13 ity of 00:00: [address] Abnormal Abnormal Disease Active Unive rs maternal maternal 2-12 ity of glucose glucose 00:00: [place] tolerance, tolerance, 00 Me dical antepartum antepartum Br anch History of History of Disease Active U nivers gestationa gestationa 2-11 [place] y of l diabetes l [place] [facility] Branch History of History of Disease Active U nivers pre-eclamp pre-eclamp 2-11 it y of [place] in [place] in 00:00: [place] prior prior 00 Medical , , Br anch currently currently Multiparit Multiparit Disease Active U nivers y y 2-11 ity of 00:00: [address] Diet Diet Disease Active Overview: [facility] controlled controlled 4-10 A2GDM- it y of gestationa gestationa 00:00: glybnurid [place] l diabetes l diabetes 00 e 2.5 mg Medical mellitus mellitus Q am and Bran ch (GDM) in (GDM) in 5 mg Q pm second second trimester trimester High risk High risk Disease Active 2014-02 Uni vers , , 1-15 it y of antepartum antepartum 00:00: xa[address] Allergies, Adverse Reactions, Alerts Allergy Allergy Status Severity Reaction(s) Onset Inactive Treating Comm ents Source Name Type Date Date Clinician No Known DA Active U [facility] Allergie 06-09 [facility] 00:00: [address] NO KNOWN Drug Active Univers ALLERGIE Class ity of S [facility] Social History Social Habit Start Date Stop Date Quantity Comments Source Exposure to Not sure University of SARS-CoV-2 [facility] (event) Branch Alcohol intake 2020-04-28 2020-04-28 0 /d University of 00:00:00 00:00:00 [facility] Tobacco Comment 2018-03-30 2018-03-30 smokes 3 Universit y of 00:00:00 00:00:00 cigarettes per [place] [facility] aleksey day. pt states she Branch stopped smoking since she found out about . Tobacco use and 2015-10-04 2015-10-04 Never used Universit y of exposure 00:00:00 00:00:00 [facility] History of 2014-12-22 Cigarette Smoker Universi ty of tobacco use 00:00:00 [facility] Sex Assigned At [birth year] Universit y of 00:00:00 00:00:00 [facility] Smoking Status Start Date Stop Date Source Current every day smoker 2015-10-04 00:00:00 Uni versity of [facility] Medications Ordered Filled Start Stop Current Ordering Indication Dosage Frequency Signature Comments Components Source Medication Medication Date Date Medication? Clinician (SIG) Name Name dapaglifloz 2020-02 Yes Xigduo XR U nivers in-metformi 02-25 10 ity of n (XIGDUO 05:25: mg-1,000 [place] XR[place] 03 mg Medical 10-1,000 mg tablet,ext Br anch TBph ended release Take 1 tablet every day by oral route for 30 days. dapaglifloz 2020-02 Yes Xigduo XR U nivers in-metformi 02-23 10 ity of n (XIGDUO 17:25: mg-1,000 [...] 00 First dose Medical (HumaLOG) + on [facility] 12/24/20 at Testing 0800, Until Discontinu ed, Routine lactated 2020-02 Yes 1000mL at 50 Univer s ringers IV 1-07 mL/hr, ity of infusion 07:30: 1,000 [place], [place] 1,000 mL 00 IV Medical Infusion, Branch CONTINUOUS , Starting on 12/24/20 at 0130, Until Discontinu ed, Routine naloxone 2020-02 Yes .1mg 0.1 mg, Univer s (NARCAN) 1-07 Slow IV ity of injection 07:21: Push, PRN Negro as 0.1 mg 11 - SEE Medical INSTRUCTIO Branch NS, Starting on [place] 12/24/20 at 0121, Until Discontinu ed, Routine, Sedation/R espiratory Depression , See admin instructio ns. morpHINE 2020-02- No 2mg 2 mg, Slow Un nancy injection 2 07 11-09 IV Push, ity of mg 07:21: 07:20 Q3HPRN, [place] 11 :11 Starting Medical on [place] Branch 12/24/20 at 0121, Until 12/26/20 at 0120, Routine, Pain (scale 7-10) HYDROcodone 2020-02 Yes 1{tbl} 1 tablet, Univers -acetaminop 1-07 Oral, ity of hen (NORCO 07:21: Q6HPRN, [place] 5) 5-325 mg 10 Starting Medi aleksey tablet 1 on [facility] tablet 12/24/20 at 0121, Until Discontinu ed, Routine, Pain (scale 4-6) ibuprofen 2020-02 Yes 600mg 600 mg, Univ ers (ADVIL 1-07 Oral, ity of CHILDREN'S) 07:21: Q6HPRN, Negro as 100 mg/5 mL 04 Starting Medi aleksey oral on [facility] suspension 12/24/20 at 600 mg 0121, Until Discontinu ed, Routine, Pain (scale 1-3) ondansetron 2020-02 Yes 4mg 4 mg, Slow Univers (ZOFRAN 1-07 IV Push, ity of (PF)) 07:20: Q4HPRN, [place] injection 4 54 Starting Medi aleksey mg on [place] Branch 12/24/20 at 0120, Until Discontinu ed, Routine, Nausea and Vomiting (N/V) chlorhexidi 2020-02 Yes [id number] 15mL Swish and Univers ne 0.12 % 1-07 spit out ity of mouthwash 00:00: 15 mL 2 [place] 00 (two) Medical times Branch daily. ibuprofen 2020-02 Yes [id number] 600mg Take 30 mL Univers 100 mg/5 mL 1-07 by mouth ity of oral 00:00: every 6 [place] suspension 00 (six) Medical hours as Branch needed for Pain (scale 1-3). chlorhexidi 2020-02 Yes [id number] 15mL Swish and Univers ne 0.12 % 1-07 spit out ity of mouthwash 00:00: 15 mL 2 [place] 00 (two) Medical times Branch daily. ibuprofen 2020-02 Yes [id number] 600mg Take 30 mL Univers 100 mg/5 mL 1-07 by mouth ity of oral 00:00: every 6 [place] suspension 00 (six) Medical hours as Branch needed for Pain (scale 1-3). HYDROcodone 2020-02- No [id number] 1{tbl} Take 1 U nivers -acetaminop 02-23 11-15 tablet by it y of hen 5-325 00:00: 05:59 mouth [place] mg tablet 00 :00 every 6 Medical (six) Branch hours as needed for Pain (scale 4-6) for up to 7 days. Indication s: acute pain amoxicillin 2020-02- No [id number] 1{tbl} Take 1 Univers -clavulanat 02-23 11-15 tablet by it y of e 00:00: 05:59 mouth 2 [place] (AUGMENTIN) 00 :00 (two) Medical 875-125 mg times Branch per tablet daily for 7 days. Blood-Gluco Yes [id number] Use as Univers se Meter 2-18 directed ity of (FREESTYLE 00:00: [place] LITE METER) 00 Medical Kit Branch blood sugar Yes [id number] Use as Univers diagnostic 2-18 directed ity o f (FREESTYLE 00:00: [place] LITE 00 Medical STRIPS) Branch strip lancets 17 Yes [id number] Use as U nivers gauge Misc 2-18 directed ity o f 00:00: [place] 00 Medical Branch Blood-Gluco 2019-0 Yes [id number] Use as Univers se Meter 2-18 directed ity of (FREESTYLE 00:00: [place] LITE METER) 00 Medical Kit Branch blood sugar 2019-0 Yes [id number] Use as Univers diagnostic 2-18 directed ity o f (FREESTYLE 00:00: [place] LITE 00 Medical STRIPS) Branch strip lancets 17 2018-0 Yes [id number] Use as U nivers gauge Misc 2-18 directed ity o f 00:00: [place] 00 Medical Branch Blood-Gluco 2018-0 Yes [id number] Use as Univers se Meter 2-18 directed ity of (FREESTYLE 00:00: [place] LITE METER) 00 Medical Kit Branch blood sugar Yes [id number] Use as Univers diagnostic 2-18 directed ity o f (FREESTYLE 00:00: [place] LITE 00 Medical STRIPS) Branch strip lancets 17 2018-0 Yes [id number] Use as U nivers gauge Misc 2-18 directed ity o f 00:00: [place] 00 Medical Branch Blood-Gluco 2018- Yes [id number] Use as Univers se Meter 2-18 directed ity of (FREESTYLE 00:00: [place] LITE METER) 00 Medical Kit Branch blood sugar 2018- Yes [id number] Use as Univers diagnostic 2-18 directed ity o f (FREESTYLE 00:00: [place] LITE 00 Medical STRIPS) Branch strip lancets 17 2018-0 Yes [id number] Use as U nivers gauge Misc 2-18 directed ity o f 00:00: [place] 00 Medical Branch Blood-Gluco 2019-0 Yes [id number] Use as Univers se Meter 2-18 directed ity of (FREESTYLE 00:00: [place] LITE METER) 00 Medical Kit Branch blood sugar 2019-0 Yes [id number] Use as Univers diagnostic 2-18 directed ity o f (FREESTYLE 00:00: [place] LITE 00 Medical STRIPS) Branch strip lancets 17 2018-0 Yes [id number] Use as U nivers gauge Misc 2-18 directed ity o f 00:00: [place] 00 Medical Branch Blood-Gluco 2019-0 Yes [id number] Use as Univers se Meter 2-18 directed ity of (FREESTYLE 00:00: [place] LITE METER) 00 Medical Kit Branch blood sugar Yes [id number] Use as Univers diagnostic 2-18 directed ity o f (FREESTYLE 00:00: [place] LITE 00 Medical STRIPS) Branch strip lancets 17 Yes [id number] Use as U nivers gauge Misc 2-18 directed ity o f 00:00: [place] 00 Medical Branch Yes [id number] 1{packe Take 1 Univers vit 2-12 t} Packet by ity of 33-iron-fol 00:00: mouth [place] ic-dha 00 daily. Medical (SELECT-OB Branch + DHA) 29 mg iron-1 mg -250 mg combo pack Yes [id number] 1{packe Take 1 Univers vit 2-12 t} Packet by ity of 33-iron-fol 00:00: mouth [place] ic-dha 00 daily. Medical (SELECT-OB Branch + DHA) 29 mg iron-1 mg -250 mg combo pack Yes [id number] 1{packe Take 1 Univers vit 2-12 t} Packet by ity of 33-iron-fol 00:00: mouth [place] ic-dha daily. Medical (SELECT-OB Branch + DHA) 29 mg iron-1 mg -250 mg combo pack Yes [id number] 1{packe Take 1 Univers vit 2-12 t} Packet by ity of 33-iron-fol 00:00: mouth [place] ic-dha 00 daily. Medical (SELECT-OB Branch + DHA) 29 mg iron-1 mg -250 mg combo pack Yes [id number] 1{packe Take 1 Univers vit 2-12 t} Packet by ity of 33-iron-fol 00:00: mouth [place] ic-dha 00 daily. Medical (SELECT-OB Branch + DHA) 29 mg iron-1 mg -250 mg combo pack Yes [id number] 1{packe Take 1 Univers vit 2-12 t} Packet by ity of 33-iron-fol 00:00: mouth [place] ic-dha 00 daily. Medical (SELECT-OB Branch + DHA) 29 mg iron-1 mg -250 mg combo pack Immunizations Ordered Filled Immunization Date Status Comments [facility] e Immunization Name Name Influenza Virus 2020-04-28 Completed Universit y of Vaccine Quad .5 mL 00:00:00 [place] Medical IM 6+ MO Branch Influenza Virus 2020-04-28 Completed Universit y of Vaccine [place] .5 mL 00:00:00 [place] Medical IM 6+ MO Branch Influenza Virus 2020-04-28 Completed Universit y of Vaccine [place] .5 mL 00:00:00 [place] Medical IM 6+ MO Branch Influenza Virus 2020-04-28 Completed Universit y of Vaccine [place] .5 mL 00:00:00 [place] Medical IM 6+ MO Branch Influenza Virus 2020-04-28 Completed Universit y of Vaccine Quad .5 mL 00:00:00 [facility] 6+ MO Branch HPV9 2016-11-06 Completed University of 00:00:00 [place] [facility] HPV9 2016-11-06 Completed University of 00:00:00 [facility] Branch HPV9 2016-11-06 Completed University of 00:00:00 [facility] Branch HPV9 2016-11-06 Completed University of 00:00:00 [facility] Branch HPV9 2016-11-06 Completed University of 00:00:00 [facility] Branch HPV9 2016-11-06 Completed University of 00:00:00 [facility] Branch HPV9 2016-09-05 Completed University of 00:00:00 [facility] Branch HPV9 2016-09-05 Completed University of 00:00:00 [place] [facility] HPV9 2016-09-05 Completed University of 00:00:00 [place] [facility] HPV9 2016-09-05 Completed University of 00:00:00 [facility] Branch HPV9 2016-09-05 Completed University of 00:00:00 [facility] HPV9 2016-09-05 Completed University of 00:00:00 [facility] TDAP 2015-05-25 Completed University of 00:00:00 [facility] TDAP 2015-05-25 Completed University of 00:00:00 [facility] TDAP 2015-05-25 Completed University of 00:00:00 [facility] TDAP 2015-05-25 Completed University of 00:00:00 [facility] TDAP 2015-05-25 Completed University of 00:00:00 [facility] TDAP 2015-05-25 Completed University of 00:00:00 [facility] Vital Signs Vital Name Observation Time Observation Value Comments Source Systolic blood 2020-12-24 17:05:00 125 mm[Hg] Univer sity of pressure [facility] Diastolic blood 2020-12-24 17:05:00 87 mm[Hg] Unive rsity of pressure [place] [facility] Heart rate 2020-12-24 17:05:00 91 /min Universi ty of [place] [facility] Body temperature 2020-12-24 17:05:00 36.22 [place] Univ ersity of [place] [facility] Respiratory rate 2020-12-24 17:05:00 18 /min Univ ersity of [place] [facility] Oxygen saturation in 2020-12-24 17:05:00 98 /min University of Arterial blood by [facility] Pulse oximetry Branch Body weight 2020-12-24 06:32:00 68.04 kg Universi ty of [place] [facility] BMI 2020-12-24 06:32:00 28.34 kg/m2 Universi ty of [place] [facility] Systolic blood 2020-04-28 16:31:00 106 mm[Hg] Univer sity of pressure [place] [facility] Diastolic blood 2020-04-28 16:31:00 73 mm[Hg] Unive rsity of pressure [place] [facility] Heart rate 2020-04-28 16:31:00 77 /min Universi ty of [place] [facility] Body temperature 2020-04-28 16:31:00 36.72 [place] Univ ersity of [place] [facility] Respiratory rate 2020-04-28 16:31:00 16 /min Univ ersity of [place] [facility] Body height 2020-04-28 16:31:00 154.9 cm Universi ty [facility] [place] [facility] Body weight 2020-04-28 16:31:00 59.081 kg Universi ty [facility] [place] [facility] BMI 2020-04-28 16:31:00 24.61 kg/m2 Universi ty [facility] [place] [facility] Systolic blood 2020-04-28 16:31:00 106 mm[Hg] Univer sity of pressure [place] [facility] Diastolic blood 2020-04-28 16:31:00 73 mm[Hg] Unive rsity of pressure [place] [facility] Heart rate 2020-04-28 16:31:00 77 /min Universi ty [facility] [place] [facility] Body temperature 2020-04-28 16:31:00 36.72 [place] Univ ersity of [place] [facility] Respiratory rate 2020-04-28 16:31:00 16 /min Univ ersity of [place] [facility] Body height 2020-04-28 16:31:[address] [facility] Body weight 2020-04-28 16:31:[address] [facility] BMI 2020-04-28 16:31:00 24.61 kg/m2 [facility] Procedures Procedure Date / Time Performed Performing Clinician Sourkarmen e EXTERNAL PROVIDER 2021-01-02 06:01:00 Doctor Unassigned, No [facility] RECORDS Name [facility] POCT GLUCOSE 2020-12-24 14:10:00 Terrance Ramírez [place] o f [place] (AUTOMATED) [facility] ASSIGNMENT OF BENEFITS 2020-04-28 17:41:20 Doctor Unassigned, No [facility] Name [facility] Branch FLU VACC ([id number]), 2020-04-28 17:21:26 Anel Contreras [facility] 6+ MONTHS, IM, QUAD Medical Bran ch Encounters Start End Encounter Admission Attending Care Care Encounter Source Date/Time Date/Time Type Type Clinicians Facility Department ID 2021-01-02 2021-01-02 Orders Doctor CHRISTIANSON [id number] Univers 00:00:00 00:00:00 Only Unassigned, GIL [id number] ity of [facility] [facility] [id number] Negro as [id number] [address] 2020 2020 Outpatient Emily RAMÍREZ [facility] [id number] Univers 14:00:00 14:00:00 [facility] [id number] [facility] 2020 2020 Outpatient Emily RAMÍREZ [facility] [id number] Univers 14:00:00 14:00:00 TERRANCE [facility] 2020-12-26 2020-12-26 Outpatient R DEANNE [facility] [id number] Univers 16:30:00 16:30:00 TERRANCE [id number] [facility] 2020-12-26 2020-12-26 Outpatient Emily RAMÍREZ [facility] [id number] Univers 16:30:00 16:30:00 [facility] 2020-12-24 2020-12-24 [id number] Univers 01:34:00 17:25:00 HISHAM ity of [facility] 2020-12-24 2020-12-24 Emergency DIVINE Ramírez [id number] Univers 01:34:00 17:25:00 Terrance CORDERO [id number] it y of [facility] [id number] Negro as [id number] [facility] [address] [place] 2020-05-09 2020-05-09 Patient Sadiq [facility] [id number] 00:00:00 00:00:00 Outreach Joao PRIMARY [id number] [facility] 4.2.7.2.686 PAVILLION [id number] 2020-05-09 2020-05-09 Patient Sadiq [facility] [id number] Univers 00:00:00 00:00:00 [facility] [id number] i ty of [facility] 4.2.7.2.686 [place] [id number] [place] [address] 2020-04-28 2020-04-[address] 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 [id number] MATERNAL [id number] & CHILD [address] [place] [address] 2020-04-28 2020-04-[address] [facility] [id number] [facility] 10:17:04 11:41:16 Visit Anel C SALES REPRESENTATIVE [employer] [id number] [facility] [id number] Negro as MATERNAL [id number] Med ical & CHILD [address] [place] [address] 2020-04-28 2020-04-28 Outpatient R ISAÍAS [facility] [id number] Univers 10:15:00 10:15:00 ANEL [id number] ity o f [facility] 2020-04-28 2020-04-28 Outpatient R ISAÍAS [facility] [id number] Univers 10:15:00 10:15:00 ANEL valdez o f [facility] 2020-04-28 2020-04-28 Orders Doctor SAMMY [id number] Univers 00:00:00 00:00:00 Only Unassigned, [place] [id number] ity of [place] [facility] 4.2.7.2.686 Negro as [id number] [address] Results Test Description Test Time Test Comments Results Result Comments Source SARS-CoV-2 (COVID-19), RT-PCR/TMA 2021-02-25 17:22:59 Test Item Value Reference Range Interpretation Comme nts SARS-CoV-2 INTERPRETATION NEGATIVE SEE NOTE S ARS-CoV-2 RNA NOT (test code = 78441) DETECTED Negative results do not preclude SARS-C oV-2 infection and should notb e used as the sole basis for patient management deci sions. Negativeresults must be combined with clinical o bservations, patient history ,and epidemiological information. Optimum specime n types and timingfor peak viral levels during infectio ns caused by SARS-CoV-2 have notbeen determined. Col lection of multiple specim ens or types ofspecimens may be necessary to detect virus. I mproper specimencollect ion and handling, sequence variab ility under primers/probes, or organism present below t he limit of detection may l ead to falsenegative r esults. Positive and negative pr edictive values oftesting are h ighly dependent on prevalence. False negative testresults are more likely when prevalence is h igh. SOURCE (test code = 82990) NASOPHARYNGEAL Note: Methodology is Juliana Leeann Real-Time RT-PCR. The expected r esult or reference range is NEGATIVE (Not Detected). For more information regarding COVID -19 testing to include clinica linformation, methodology det ail, intended use, FDA author ization andrecommended fact sheets for patients or hea lthcare providers, see [facility] Announcement: S ARS-CoV-2 (COVID-19) by N AAT at URL below (note,fact shee ts are provided by method given in report:https:// www.[employer]/c linicians/janie t-communications/ Alternatively, see downloadable PDF fact sheet at:https://www. [employer].Immure Records/COVID -19-RT-PCR UNLESS OTHERWISE INDIC ATED, ALL TESTING PERFORMED [facility] PATHOLOGY [place] [address] LABORATORY DIRE CTOR: ERICK NEAL M.D. CLIA NUMBER [id number] [place]. [id number] POCT GLUCOSE (AUTOMATED)2020-12-24 14:12:21 Test Item Value Reference Range Interpretation Comments POCT GLU (test code = 3283379994) 212 mg/dL 70-110 H Lab Interpretation (test code = Abnormal 34572-4) [facility] 15:58:00 Test Item Value Reference Range Interpretation Comments GLUBED (test code = GLUBED) 148 mg/dL 65-110 H [id number] 10:51:00 Test Item Value Reference Range Interpretation Comments GLUBED (test code = GLUBED) 174 mg/dL 65-110 H [id number] 06:04:00 Test Item Value Reference Range Interpretation Comments GLUBED (test code = GLUBED) 83 mg/dL 65-110 N COMPREHENSIVE METABOLIC [id number] 04:40:00 Test Item Value Reference Range Interpretation [...] be considered for these patients. GLYCOSYLATED HEMOGLOBIN [id number] 04:40:00 Test Item Value Reference Range Interpretation [...] MG/DL 70-110 H (test code = MBG) [id number] 00:14:00 Test Item Value Reference Range Interpretation Comments GLUBED (test code = GLUBED) 194 mg/dL 65-110 H COMPREHENSIVE METABOLIC [id number] 21:06:00 Test Item Value Reference Range Interpretation [...] (HA1C) (test code = GLYHGB) CBC W/AUTO [id number] 20:53:00 Test Item Value Reference Range Interpretation [...] (test NORMAL NORMAL code = PLTMR) URINALYSIS [id number] 20:08:00 Test Item Value Reference Range Interpretation [...] #/hpf NONE SEEN A URINE SAMPLE: CLEAN [id number] 20:01:00 Test Item Value Reference Range Interpretation Comments GLUBED (test code = GLUBED) 196 mg/dL 65-110 H URINALYSIS [id number] 19:53:00 Test Item Value Reference Range Interpretation [...]
[2021-04-26] MEDS ORDERED: Ringers Lactate 1,000 ML IV ONE (09:53)
[2021-04-26 09:57] LABS: Hematocrit 36.2 % (36.0-45.0); MPV 9.3 fL (7.6-11.3); RBC Red Blood Cell Count 4.55 M/uL (3.86-4.86)
[2021-04-26 10:16] LABS: Potassium 4.2 mmol/L (3.5-5.1)
[2021-04-26] MEDS ORDERED: INSULIN -REGULAR HUMAN 50 UNIT/0.5 ML ML ONE (10:59)
--- NOTE | 2021-04-26 11:49 | EDPHYS ---
Physician Documentation [facility] Name: Harriett Gillette Age: 30 yrs Sex: Female : 1990 Arrival Date: 04/26/2021 Time: 09:15 Bed 27 Private MD: ED Physician Toi Riddle HPI: 04/26 09:27 This 30 yrs old Female presents to ER via Ambulatory with complaints of High ms3 Blood Sugar. 09:27 The patient or guardian reports hyperglycemia, that was potentially precipitated by no ms3 particular event. Onset: The symptoms/episode began/occurred 3 hour(s) ago. Current symptoms: In the emergency department the patient's symptoms are unchanged from the initial presentation. 30-year-old female with past medical history of diabetes type 2 who presents for elevated blood glucose level that began at 6 AM. Patient states her glucose levels 447 and she took some insulin and her blood glucose decreased to 399. Patient denies dysuria, pain. Patient denies alleviating or inciting factors.. Historical: - Allergies: 09:28 Codeine; [facility] - Home Meds: 09:28 Levemir 100 unit/mL subcutaneous soln [Active]; [facility] - PMHx: 09:28 Diabetes - IDDM; heart valve dysfunction; Pre-eclampsia; [facility] - Immunization history:: Adult Immunizations up to date. - Social history:: Smoking status: Patient denies any tobacco usage or history of. ROS: 09:27 Constitutional: Negative for fever, and chills. Eyes: Negative for injury, pain, ms3 redness, and discharge, Neck: Negative for injury, pain, and swelling, Cardiovascular: Negative for chest pain, and palpitations. Respiratory: Negative for shortness of breath, cough, wheezing, and pleuritic chest pain, Abdomen/GI: Negative for abdominal pain, nausea, vomiting, diarrhea, and constipation, Back: Negative for injury and pain, MS/Extremity: Negative for injury and deformity, Skin: Negative for injury, rash, and discoloration, Neuro: Negative for headache, weakness, numbness, tingling. Exam: 15:37 Constitutional: This is a well developed, well nourished patient who is awake, alert, ms3 and in no acute distress. Head/Face: Normocephalic, atraumatic. Chest/axilla: Normal chest wall appearance and motion. Nontender with no deformity. Cardiovascular: Regular rate and rhythm with a normal S1 and S2. No gallops, murmurs, or rubs. Normal PMI, no JVD. No pulse deficits. Respiratory: Lungs have equal breath sounds bilaterally, clear to auscultation and percussion. No rales, rhonchi or wheezes noted. No increased work of breathing, no retractions or nasal flaring. Abdomen/GI: Soft, non-tender, with normal bowel sounds. No distension or tympany. No guarding or rebound. No evidence of tenderness throughout. Skin: Warm, dry with normal turgor. Normal color with no rashes, no lesions, and no evidence of cellulitis. MS/ Extremity: Pulses equal, no cyanosis. Neurovascular intact. Full, normal range of motion. Neuro: Awake and alert, GCS 15, oriented to person, place, time, and situation. Cranial nerves II-XII grossly intact. Motor strength 5/5 in all extremities. Sensory grossly intact. Cerebellar exam normal. Normal gait. Psych: Awake, alert, with orientation to person, place and time. Behavior, mood, and affect are within normal limits. Vital Signs: 09:27 BP 124 / 81; Pulse 72; Resp 17; Temp 97.6(O); Pulse Ox 100% ; Weight 68.04 kg; Height 5 6 ft. 0 in. (152.40 cm); Pain 0/10; 10:05 BP 102 / 72; Pulse 85; Resp 17; Pulse Ox 100% ; Pain 0/10; jh6 11:28 BP 108 / 76; Pulse 80; Resp 17; Pulse Ox 100% ; Pain 0/10; 6 09:27 Body Mass Index 29.29 (68.04 kg, 152.40 cm) [facility] MDM: 09:24 Patient medically screened. ms3 13:00 Differential diagnosis: DKA, hyperglycemia. Data reviewed: vital signs, nurses notes, ms3 lab test result(s). Counseling: I had a detailed discussion with the patient and/or guardian regarding: the historical points, exam findings, and any diagnostic results supporting the discharge/admit diagnosis, lab results, the need for outpatient follow up. ED course: Discussed labs and physical exam findings with patient. Patient to follow-up with her primary care physician as discussed. All questions were answered. Return precautions discussed include worsening symptoms, or any other concerns. On reevaluation patient is alert and oriented x4, no apparent distress, nontoxic, ambulatory in emergency department, speaking full sentences.. 04/26 09:22 Order name: CBC w/o diff; Complete Time: 10:49 ms3 04/26 09:22 Order name: BMP; Complete Time: 10:49 ms3 04/26 11:57 Order name: Glucose, Ancillary Testing; Complete Time: 12:16 EDMS 04/26 11:39 Order name: Glucose Level; Complete Time: 12:21 ms3 Administered Medications: 09:53 Drug: Lactated Ringers Solution 1000 ml Route: IV; Rate: 1000 ml/hr; Site: left [facility] antecubital; 10:59 Drug: Insulin Regular Human 10 units {Co-Signature: bi (Kayla Gonzales RN).} Route: [facility] IVP; Site: left antecubital; Disposition Summary: 04/26/21 11:49 Discharge Ordered Location: Home ms3 Condition: Stable ms3 Diagnosis - Type 2 diabetes mellitus with hyperglycemia ms3 - Anemia, unspecified ms3 Followup: ms3 - With: Private Physician - When: 2 - 3 days - Reason: Recheck today's complaints Discharge Instructions: - Discharge Summary Sheet ms3 - Type 2 Diabetes Mellitus, Diagnosis, Adult ms3 - Hyperglycemia ms3 Forms: - Medication Reconciliation Form ms3 - Thank You Letter ms3 - Antibiotic Education ms3 - Prescription Opioid Use ms3 Signatures: Dispatcher [employer] Kayla Ritter RN RN aa5 Toi Riddle DO DO ms3 Awa Goins RN RN [facility] Kayla Gonzales RN aa5 Corrections: (The following items were deleted from the chart) 09:45 09:45 IV Saline Lock ordered. aa5 aa5 09:45 09:45 Labs collected and sent ordered. aa5 aa5 09:47 09:45 HEPATIC FUNCTION+C.LAB.BRZ ordered. EDMS EDMS 09:47 09:45 LIPASE+C.LAB.BRZ ordered. EDMS EDMS
--- NOTE | 2021-04-26 11:49 | ER ---
Nurse's Notes [facility] Name: Harriett Gillette Age: 30 yrs Sex: Female : 1990 Arrival Date: 04/26/2021 Time: 09:15 Bed 27 Private MD: Diagnosis: Type 2 diabetes mellitus with hyperglycemia;Anemia, unspecified Presentation: 04/26 09:27 Chief complaint: Patient states: noted elevated BS this am of 400. No other s.s. [facility] Coronavirus screen: Vaccine status: Patient reports receiving the 2nd dose of the covid vaccine. Client denies travel out of the [place] in the last 14 days. At this time, the client does not indicate any symptoms associated with coronavirus-19. Ebola Screen: Patient denies exposure to infectious person. Patient denies travel to an Ebola-affected area in the 21 days before illness onset. Initial Sepsis Screen: Does the patient meet any 2 criteria? No. Patient's initial sepsis screen is negative. Initial Sepsis Screen: Does the patient have a suspected source of infection? No. Patient's initial sepsis screen is negative. Risk Assessment: Do you want to hurt yourself or someone else? Patient reports no desire to harm self or others. Onset of symptoms was April 26, 2021. 09:27 Method Of Arrival: Ambulatory [facility] 09:27 Acuity: TIFFANIE 3 [facility] Triage Assessment: : General: Appears in no apparent distress. Behavior is calm, cooperative. Pain: Denies [facility] pain. Historical: - Allergies: : Codeine; [facility] - Home Meds: : Levemir 100 unit/mL subcutaneous soln [Active]; [facility] - PMHx: :28 Diabetes - IDDM; heart valve dysfunction; Pre-eclampsia; [facility] - Immunization history:: Adult Immunizations up to date. - Social history:: Smoking status: Patient denies any tobacco usage or history of. Screenin: Abuse screen: Denies threats or abuse. Nutritional screening: No deficits noted. [facility] Tuberculosis screening: No symptoms or risk factors identified. Fall Risk None identified. Assessment: : General: see triage note. [facility] 10:35 Reassessment: No changes from previously documented assessment. Patient and/or family [facility] updated on plan of care and expected duration. Pain level reassessed. Patient is alert, oriented x 3, equal unlabored respirations, skin warm/dry/pink. call light in reach, waiting for results/ Patient denies pain at this time. 11:40 Reassessment: Patient and/or family updated on plan of care and expected duration. Pain jh6 level reassessed. Patient is alert, oriented x 3, equal unlabored respirations, skin warm/dry/pink. Patient denies pain at this time. 11:40 General: Appears in no apparent distress. Behavior is calm, cooperative, Smells of jh6 sugar was 178 md made aware and pt given sandwich. states that she has not had anything to eat this am. . Vital Signs: 09:27 BP 124 / 81; Pulse 72; Resp 17; Temp 97.6(O); Pulse Ox 100% ; Weight 68.04 kg; Height 5 jh6 ft. 0 in. (152.40 cm); Pain 0/10; 10:05 BP 102 / 72; Pulse 85; Resp 17; Pulse Ox 100% ; Pain 0/10; jh6 11:28 BP 108 / 76; Pulse 80; Resp 17; Pulse Ox 100% ; Pain 0/10; jh6 09:27 Body Mass Index 29.29 (68.04 kg, 152.40 cm) 6 ED Course: 09:15 Patient arrived in ED. kz 09:17 Toi Riddle DO is Attending Physician. ms3 09:27 Awa Goins, AHSAN is Primary Nurse. jh6 09:28 Triage completed. jh6 09:29 Arm band placed on right wrist. jh6 09:29 No provider procedures requiring assistance completed. jh6 09:30 Bed in low position. Call light in reach. Side rails up X 1. jh6 09:45 Inserted saline lock: 22 gauge in left antecubital area, using aseptic technique. Blood 6 collected. 11:45 IV discontinued, intact, bleeding controlled, No redness/swelling at site. Pressure 6 dressing applied. 11:46 BS 163. 6 Administered Medications: 09:53 Drug: Lactated Ringers Solution 1000 ml Route: IV; Rate: 1000 ml/hr; Site: left 6 antecubital; 10:59 Drug: Insulin Regular Human 10 units {Co-Signature: aa5 (Kayla Gonzales RN).} Route: 6 IVP; Site: left antecubital; Outcome: 11:49 Discharge ordered by . ms3 12:21 Discharged to home ambulatory. jh6 12:21 Condition: improved 12:21 Discharge instructions given to patient, Instructed on discharge instructions, Demonstrated understanding of instructions, follow-up care. 12:22 Patient left the ED. jh6 Signatures: Toi Riddle DO DO ms3 Awa Goins RN RN jh6 Celestina Amaral RN aa5
[2021-04-26 12:27] VITALS: TEMP 97.6; O2SAT 100
[2021-04-26 12:30] VITALS: BP 108/76
[2021-04-26] MEDS ORDERED: NA CHLORIDE 0.9% 100 ML IV ONE (13:11)
[2021-04-26] MEDS ORDERED: AMIODARONE HCL 150 MG/3 ML INJ IV ONE (13:11)
== END 2021-04-26 12:22 | disposition home or self-care (01) ==
LOC: ER 09:12
DX: E11.65 Type 2 diabetes mellitus with hyperglycemia (principal); D64.9 Anemia, unspecified; Z88.5 Allergy status to narcotic agent
CPT/HCPCS: 36415; 80048; 82947; 85027; 96374; 99283; J0282; J7120

== ENCOUNTER 2021-08-20 17:47 | Emergency (ER) | payer SELFPAY ==
[2021-08-20] MEDS ORDERED: hydrOXYzine HCL 25 MG TAB ONE (18:07)
[2021-08-20] MEDS ORDERED: FAMOTIDINE 20 MG/2 ML VIAL IV ONE (18:08)
[2021-08-20] MEDS ORDERED: dexAMETHasone 10 MG/ML VIAL ONE (18:08)
--- NOTE | 2021-08-20 19:47 | ER ---
Nurse's Notes [facility] Name: Harriett Gillette Age: 30 yrs Sex: Female : 1990 Arrival Date: 08/20/2021 Time: 17:50 Bed 4 Private MD: Diagnosis: Allergic Reaction Presentation: 08/20 17:52 Chief complaint: Patient states: was holding a guinea pig and started having an iw allergic reaction, has facial swelling , runny nose, watery eyes, cough. Coronavirus screen: At this time, the client does not indicate any symptoms associated with coronavirus-19. Ebola Screen: Patient negative for fever greater than or equal to 101.5 degrees Fahrenheit, and additional compatible Ebola Virus Disease symptoms Patient denies exposure to infectious person. Patient denies travel to an Ebola-affected area in the 21 days before illness onset. No symptoms or risks identified at this time. Onset of symptoms was August 20, 2021. 17:52 Method Of Arrival: Ambulatory iw 17:52 Acuity: TIFFANIE 3 iw 18:00 Onset: The symptoms/episode began/occurred acutely. Anaphylaxis evaluation, no signs or jl7 symptoms of anaphylaxis were noted. Initial Sepsis Screen: Does the patient meet any 2 criteria? No. Patient's initial sepsis screen is negative. Does the patient have a suspected source of infection? No. Patient's initial sepsis screen is negative. Risk Assessment: Do you want to hurt yourself or someone else? Patient reports no desire to harm self or others. Historical: - Allergies: 17:53 Codeine; iw - PMHx: 17:53 Diabetes - IDDM; GESTATIONAL DM; heart valve dysfunction; Pre-eclampsia; iw - Immunization history:: Adult Immunizations unknown. - Social history:: Smoking status: unknown. Screenin:10 Abuse screen: Denies threats or abuse. Denies injuries from another. Nutritional jl7 screening: No deficits noted. Tuberculosis screening: No symptoms or risk factors identified. Fall Risk IV access (20 points). Total George Fall Scale indicates No Risk (0-24 pts). Assessment: 18:00 General: Appears distressed, uncomfortable, Behavior is calm, cooperative, appropriate jl7 for age. Pain: Denies pain. Neuro: Level of Consciousness is awake, alert, obeys commands, Oriented to person, place, time, situation. Cardiovascular: Patient's skin is warm and dry. Respiratory: Airway is patent Respiratory effort is even, unlabored, Respiratory pattern is regular, symmetrical, Breath sounds are clear bilaterally. pt with intermittent coughing. Derm: Skin is pink, warm \T\ dry. Rash noted that is red, raised, on right eye and left eye. Vital Signs: 17:55 BP 118 / 92; Pulse 110; Resp 18 S; Pulse Ox 98% on R/A; iw 19:52 BP 144 / 90; Pulse 89; Resp 18 S; Pulse Ox 100% on R/A; as6 ED Course: 17:50 Patient arrived in ED. vg1 17:52 Andrew Lopez PA is PHCP. [facility] 17:52 Trell Downing MD is Attending Physician. jm 17:53 Triage completed. iw 17:54 Arm band placed on. iw 17:58 Lisette Osman, RN is Primary Nurse. jl7 18:01 Inserted saline lock: 22 gauge in left antecubital area, using aseptic technique. iw 18:10 Patient has correct armband on for positive identification. Bed in low position. Call jl7 light in reach. Side rails up X 1. Pulse ox on. NIBP on. 19:53 No provider procedures requiring assistance completed. IV discontinued, intact, as6 bleeding controlled, No redness/swelling at site. Pressure dressing applied. Administered Medications: 18:10 Drug: Pepcid (famotidine) 20 mg Route: IVP; Site: left antecubital; jl7 19:53 Follow up: Response: No adverse reaction as6 18:12 Drug: Decadron - Dexamethasone 10 mg Route: IVP; Site: left antecubital; jl7 19:53 Follow up: Response: No adverse reaction as6 18:18 Drug: hydrOXYzine 50 mg Route: PO; jl7 19:53 Follow up: Response: No adverse reaction as6 Medication: 19:54 VIS not applicable for this client. as6 Outcome: 19:46 Discharge ordered by . [facility] 19:53 Discharged to home ambulatory, with family. as6 19:53 Condition: stable 19:53 Discharge instructions given to patient, Instructed on discharge instructions, follow up and referral plans. medication usage, Demonstrated understanding of instructions, follow-up care, medications, Prescriptions given X 2. 19:54 Patient left the ED. as6 Signatures: Andrew Lopez PA PA jmm Williams, Irene, RN RN iw Lisette Osman, RN RN jl7 Pippa William RN RN vg1 Edwar Rashid RN RN as6
--- NOTE | 2021-08-20 19:47 | EDPHYS ---
Physician Documentation [facility] Name: Harriett Gillette Age: 30 yrs Sex: Female : 1990 Arrival Date: 08/20/2021 Time: 17:50 Bed 4 Private MD: ED Physician Trell Downing HPI: 08/20 19:40 This 30 yrs old Female presents to ER via Ambulatory with complaints of jmm Allergic Reaction. 19:40 The patient presents with itching. Onset: The symptoms/episode began/occurred gradually.jmm 19:43 This is a 30-year-old female with history of diabetes mellitus, that presents emerged [facility] department with complaints of facial swelling, itching, facial rash beginning after handling a guinea pig. Patient also complains of some mild shortness of breath, denies nausea or vomiting.. Historical: - Allergies: 17:53 Codeine; iw - PMHx: 17:53 Diabetes - IDDM; GESTATIONAL DM; heart valve dysfunction; Pre-eclampsia; iw - Immunization history:: Adult Immunizations unknown. - Social history:: Smoking status: unknown. ROS: 19:40 Constitutional: Negative for fever, chills, and weight loss, Cardiovascular: Negative jmm for chest pain, palpitations, and edema. 19:43 Respiratory: Positive for cough. jmm 19:43 Abdomen/GI: Negative for abdominal pain, nausea and vomiting. 19:43 Skin: Positive for rash, swelling. 19:43 All other systems are negative. Exam: 19:43 Constitutional: This is a well developed, well nourished patient who is awake, alert, jmm and in no acute distress. 19:43 ENT: Moist Mucus Membranes Neck: Trachea midline, Supple Chest/axilla: Normal chest wall appearance and motion. Cardiovascular: Regular rate and rhythm. No edema appreciated Respiratory: Normal respirations, no respiratory distress appreciated Abdomen/GI: Non distended Back: Normal ROM 19:43 Head/face: Mild facial edema noted, facial rash with hives noted to the left and right cheek. 19:43 Eyes: Chemosis. 19:43 Skin: Hives noted to the face. 19:43 Psych: Behavior/mood is pleasant, cooperative. Vital Signs: 17:55 BP 118 / 92; Pulse 110; Resp 18 S; Pulse Ox 98% on R/A; iw 19:52 BP 144 / 90; Pulse 89; Resp 18 S; Pulse Ox 100% on R/A; as6 MDM: 17:52 Patient medically screened. [facility] 19:43 Data reviewed: vital signs, nurses notes. Counseling: I had a detailed discussion with anthony the patient and/or guardian regarding: the historical points, exam findings, and any diagnostic results supporting the discharge/admit diagnosis, the need for outpatient follow up, smoking cessation. ED course: Symptoms have resolved in the ED. Patient advised follow-up PCP and otherwise given strict return precautions. Patient understood agrees plan of care.. 08/20 17:52 Order name: Saline Lock; Complete Time: 18:01 [facility] Administered Medications: 18:10 Drug: Pepcid (famotidine) 20 mg Route: IVP; Site: left antecubital; jl7 19:53 Follow up: Response: No adverse reaction as6 18:12 Drug: Decadron - Dexamethasone 10 mg Route: IVP; Site: left antecubital; jl7 19:53 Follow up: Response: No adverse reaction as6 18:18 Drug: hydrOXYzine 50 mg Route: PO; jl7 19:53 Follow up: Response: No adverse reaction as6 Disposition Summary: 08/20/21 19:46 Discharge Ordered Location: Home [facility] Condition: Stable [facility] Diagnosis - Allergic Reaction [facility] Followup: [facility] - With: Private Physician - When: 2 - 3 days - Reason: Recheck today's complaints, Continuance of care, Re-evaluation by your physician Discharge Instructions: - Discharge Summary Sheet anthony cuadra Forms: - Medication Reconciliation Form [facility] - Thank You Letter [facility] - Antibiotic Education [facility] - Prescription Opioid Use [facility] Prescriptions: - Hydroxyzine HCl 25 mg Oral Tablet - take 1 tablet by ORAL route every 6 hours As needed; 20 tablet; Refills: 0, [facility] Product Selection Permitted - Medrol (Trent) 4 mg Oral Tablets, Dose Pack - take 1 tablet by ORAL route as directed - follow package instructions; 1 [facility] packet; Refills: 0, Product Selection Permitted Signatures: Andrew Lopez PA PA jm Analia Espino RN RN iw Lisette Osman RN RN jl7 Edwar Rashid RN as6 Corrections: (The following items were deleted from the chart) 19:44 19:40 Patient states feeling much better. Patient advised to follow up with pcp and jmm otherwise given strict return precautions. patient understood and agrees with the plan of care. . anthony
[2021-08-20 20:08] VITALS: BP 144/90; O2SAT 100
== END 2021-08-20 19:54 | disposition home or self-care (01) ==
LOC: ER 17:47
DX: T78.49XA Other allergy, initial encounter (principal); R09.89 Other specified symptoms and signs involving the circulatory and respiratory systems; R05.9 Cough, unspecified; Z88.5 Allergy status to narcotic agent
CPT/HCPCS: 96374; 96375; 99284; J1100; J3490

== ENCOUNTER 2021-09-26 16:06 | Emergency (ER) | payer SELFPAY ==
--- OUTSIDE RECORDS SUMMARY | 2021-09-26 16:10 | XMS REPORT | Continuity of Care Document ---
:1990 Author Organization [facility] t Address [address] [place] [address] Care Team Providers Name Role Phone ANEL CONTRERAS Primary Care Physician Unavailable Doctor Unassigned, [place] Attending Clinician Unavailable TERRANCE ALICEA Attending Clinician Unavailable Terrance Alicea DDS Attending Clinician Joao Babcock DO [facility]ending Clinician [facility]ending [facility]ician [phone] ANEL CONTRERAS Attending Clinician Unavailable TERRANCE ALICEA Admitting Clinician Unavailable Terrance Alicea DDS Admitting Clinician Payers Payer Name Policy Type Policy Number Effective Date Expiration Date S ource Problems Condition Condition Condition Status Onset Resolution Last Treating Co mments Source Name Details Category Date Date Treatment Clinician Date Submandibu Submandibu Disease Active 2020-02 U nivers lar lar -07 ity of abscess abscess 00:00: [address] Cervical Cervical Disease Active Overview: Un [...] rs glucose glucose 2-13 ity of 00:00: [place] 00 [facility] [place] Abnormal Abnormal Disease Active Unive rs maternal maternal 2-12 ity of glucose glucose 00:00: [place] tolerance, tolerance, 00 Me dical antepartum antepartum Br anch History of History of Disease Active U nivers gestationa gestationa 2-11 it y of l diabetes l diabetes 00:[place] [facility] History of History of Disease Active U nivers pre-eclamp pre-eclamp 2-11 it y of [place] in [place] in 00:00: [place] prior prior 00 Medical , , Br anch currently currently Multiparit Multiparit Disease Active U nivers y y 2-11 ity of 00:00: [address] Diet Diet Disease [facility] controlled 4-10 A2GDM- it y of gestationa gestationa 00:00: glybnurid [place] l diabetes l diabetes 00 e 2.5 mg Medical mellitus mellitus Q am and Bran ch (GDM) in (GDM) in 5 mg Q pm second second trimester trimester High risk High risk Disease Active 2014-02 Uni vers , , 1-15 it y of ante[place] [facility] Allergies, Adverse Reactions, Alerts Allergy Allergy Status Severity Reaction(s) Onset Inactive Treating Comm ents Source Name Type Date Date Clinician No Known DA Active U [facility] Allergie 4- [place] 00:00: [place] [address] [facility] NO KNOWN Drug Active Univers ALLERGIE Class ity of S [facility] Social History Social Habit Start Date Stop Date Quantity Comments Source Exposure to Not sure University of SARS-CoV-2 [facility] (event) Branch Alcohol intake 2020-04-28 2020-04-28 0 /d University of 00:00:00 00:00:00 [facility] Tobacco Comment 2018-03-30 2018-03-30 smokes 3 Universit y of 00:00:00 00:00:00 cigarettes per [facility] day. pt states she Branch stopped smoking since she found out about . Tobacco use and 2015-10-04 2015-10-04 Never used Universit y of exposure 00:00:00 00:00:00 [facility] History of 2014-12-22 Cigarette Smoker Universi ty of tobacco use 00:00:00 [facility] Sex Assigned At [birth year] Universit y of 00:00:00 00:00:00 [facility] Smoking Status Start Date Stop Date Source Current every day smoker 2015-10-04 00:00:00 Uni versity of [facility] Medications Ordered Filled Start Stop Current Ordering [...] days. dapaglifloz 2020-02 Yes Xigduo XR U nivTranserv in-metformi 02-23 10 ity of n (XIGDUO [...] 00 First dose Medical (HumaLOG) + on [facility] Fsbg 12/24/20 at Testing 0800, Until Discontinu ed, Routine lactated 2020-02 Yes 1000mL at 50 Univer s ringers IV 1-07 mL/hr, ity of infusion 07:30: 1,000 [place] 1[place]000 [place] 00 IV Medical Infusion, Branch CONTINUOUS , Starting on [place] 12/24/20 at 0130, Until Discontinu ed, Routine naloxone 2020-02 Yes .1mg 0.1 mg, Univer s (NARCAN) 1-07 Slow IV ity of injection 07:21: Push, PRN Negro as 0.1 mg 11 - SEE Medical INSTRUCTIO Branch NS, Starting on [place] 12/24/20 at 0121, Until Discontinu ed, Routine, Sedation/R espiratory Depression , See admin instructio ns. morpHINE 2020-02- No 2mg 2 mg, Slow Un nancy injection 2 107 11-09 IV Push, ity of mg 07:21: 07:20 Q3HPRN, [place] 11 :11 Starting Medical on [facility] 12/24/20 at 0121, Until 12/26/20 at 0120, Routine, Pain (scale 7-10) HYDROcodone 2020-02 Yes 1{tbl} 1 tablet, Univers -acetaminop 1-07 Oral, ity of hen (NORCO 07:21: Q6HPRN, [place] 5) 5-325 mg 10 Starting Medi aleksey tablet 1 on [facility] tablet 12/24/20 at 0121, Until Discontinu ed, Routine, Pain (scale 4-6) ibuprofen 2020-02 Yes 600mg 600 mg, Univ ers (ADVIL 1-07 Oral, ity of CHILDREN'S) 07:21: Q6HPRN, Negro as 100 mg/5 mL 04 Starting Medi aleksey oral on [facility] suspension 12/24/20 at 600 mg 0121, Until Discontinu ed, Routine, Pain (scale 1-3) ondansetron 2020-02 Yes 4mg 4 mg, Slow Univers (ZOFRAN 1-07 IV Push, ity of (PF)) 07:20: Q4HPRN, [place] injection 4 54 Starting Medi aleksey mg on [place] Branch 12/24/20 at 0120, Until Discontinu ed, Routine, Nausea and Vomiting (N/V) chlorhexidi 2020-02 Yes [id number] 15mL Swish and Univers ne 0.12 % 1-07 spit out ity of mouthwash 00:00: 15 mL 2 [place] 00 (two) Medical times Branch daily. ibuprofen 2020-02 Yes [id number] 600mg Take 30 mL Univers 100 mg/5 mL 1-07 by mouth ity of oral 00:00: every 6 [place] suspension 00 (six) Medical hours as Branch needed for Pain (scale 1-3). chlorhexidi 2020-02 Yes [id number] 15mL Swish and Univers ne 0.12 % 1-07 spit out ity of mouthwash 00:00: 15 mL 2 [place] 00 (two) Medical times Branch daily. ibuprofen 2020-02 Yes [id number] 600mg Take 30 mL Univers 100 mg/5 mL 1-07 by mouth ity of oral 00:00: every 6 [place] suspension 00 (six) Medical hours as Branch needed for Pain (scale 1-3). HYDROcodone 2020-02- No [id number] 1{tbl} Take 1 U nivers -acetaminop 02-23-15 tablet by it y of hen 5-325 00:00: 05:59 mouth [place] mg tablet 00 :00 every 6 Medical (six) Branch hours as needed for Pain (scale 4-6) for up to 7 days. Indication s: acute pain amoxicillin 2020-02- No [id number] 1{tbl} Take 1 Univers -clavulanat 02-23 11-15 tablet by it y of e 00:00: 05:59 mouth 2 [place] (AUGMENTIN) 00 :00 (two) Medical 875-125 mg times Branch per tablet daily for 7 days. Blood-Gluco Yes [id number] Use as Univers se Meter 2-18 directed ity of (FREESTYLE 00:00: [place] LITE METER) 00 Medical Kit Branch blood sugar Yes [id number] Use as Univers diagnostic 2-18 directed ity o f (FREESTYLE 00:00: [place] LITE 00 Medical STRIPS) Branch strip lancets 17 Yes [id number] Use as U nivers gauge Misc 2-18 directed ity o f 00:00: [place] 00 Medical Branch Blood-Gluco 2019-0 Yes [id number] Use as Univers se Meter 2-18 directed ity of (FREESTYLE 00:00: [place] LITE METER) 00 Medical Kit Branch blood sugar 2019 Yes [id number] Use as Univers diagnostic 2-18 directed ity o f (FREESTYLE 00:00: [place] LITE 00 Medical STRIPS) Branch strip lancets 17 0 Yes [id number] Use as U nivers gauge Misc 2-18 directed ity o f 00:00: [place] 00 Medical Branch Blood-Gluco 2019-0 Yes [id number] Use as Univers se Meter 2-18 directed ity of (FREESTYLE 00:00: [place] LITE METER) 00 Medical Kit Branch blood sugar Yes [id number] Use as Univers diagnostic 2-18 directed ity o f (FREESTYLE 00:00: [place] LITE 00 Medical STRIPS) Branch strip lancets 17 Yes [id number] Use as U nivers gauge Misc 2-18 directed ity o f 00:00: [place] 00 Medical Branch Blood-Gluco Yes [id number] Use as Univers se Meter 2-18 directed ity of (FREESTYLE 00:00: [place] LITE METER) 00 Medical Kit Branch blood sugar Yes [id number] Use as Univers diagnostic 2-18 directed ity o f (FREESTYLE 00:00: [place] LITE 00 Medical STRIPS) Branch strip lancets 17 0 Yes [id number] Use as U nivers gauge Misc 2-18 directed ity o f 00:00: [place] 00 Medical Branch Blood-Gluco 2018-0 Yes [id number] Use as Univers se Meter 2-18 directed ity of (FREESTYLE 00:00: [place] LITE METER) 00 Medical Kit Branch blood sugar 2019 Yes [id number] Use as Univers diagnostic 2-18 directed ity o f (FREESTYLE 00:00: [place] LITE 00 Medical STRIPS) Branch strip lancets 17 2018-0 Yes [id number] Use as U nivers gauge Misc 2-18 directed ity o f 00:00: [place] 00 Medical Branch Blood-Gluco 2019-0 Yes [id number] Use as Univers se Meter 2-18 directed ity of (FREESTYLE 00:00: [place] LITE METER) 00 Medical Kit Branch blood sugar 2018- Yes [id number] Use as Univers diagnostic 2-18 directed ity o f (FREESTYLE 00:00: [place] LITE 00 Medical STRIPS) Branch strip lancets 17 2018- Yes [id number] Use as U nivers gauge Misc 2-18 directed ity o f 00:00: [place] 00 Medical Branch Yes [id number] 1{packe Take 1 Univers vit 2-12 t} Packet by ity of 33-iron-fol 00:00: mouth [place] ic-dha 00 daily. Medical (SELECT-OB Branch + DHA) 29 mg iron-1 mg -250 mg combo pack Yes [id number] 1{packe Take 1 Univers vit 2-12 t} Packet by ity of 33-iron-fol 00:00: mouth [place] ic-dha 00 daily. Medical (SELECT-OB Branch + DHA) 29 mg iron-1 mg -250 mg combo pack Yes [id number] 1{packe Take 1 Univers vit 2-12 t} Packet by ity of 33-iron-fol 00:00: mouth [place] ic-dha daily. Medical (SELECT-OB Branch + DHA) 29 mg iron-1 mg -250 mg combo pack Yes [id number] 1{packe Take 1 Univers vit 2-12 t} Packet by ity of 33-iron-fol 00:00: mouth [place] ic-dha 00 daily. Medical (SELECT-OB Branch + DHA) 29 mg iron-1 mg -250 mg combo pack Yes [id number] 1{packe Take 1 Univers vit 2-12 t} Packet by ity of 33-iron-fol 00:00: mouth [place] ic-dha daily. Medical (SELECT-OB Branch + DHA) 29 mg iron-1 mg -250 mg combo pack Yes [id number] 1{packe Take 1 Univers vit 2-12 t} Packet by ity of 33-iron-fol 00:00: mouth [place] ic-dha 00 daily. Medical (SELECT-OB Branch + DHA) 29 mg iron-1 mg -250 mg combo pack Immunizations Ordered Filled Immunization Date Status Comments [facility] e Immunization Name Name Influenza Virus [...] y of Vaccine Quad .5 mL 00:00:00 [facility] IM 6+ [place] Branch HPV9 2016-11-06 Completed University of 00:00:00 [facility] Branch HPV9 2016-11-06 Completed University of 00:00:00 [place] [facility] HPV9 2016-11-06 Completed University of 00:00:00 [place] [facility] HPV9 2016-11-06 Completed University of 00:00:00 [place] [facility] HPV9 2016-11-06 Completed University of 00:00:00 [place] [facility] HPV9 2016-11-06 Completed University of 00:00:00 [facility] Branch HPV9 2016-09-05 Completed University of 00:00:00 [facility] Branch HPV9 2016-09-05 Completed University of 00:00:00 [place] [facility] HPV9 2016-09-05 Completed University of 00:00:00 [place] [facility] HPV9 2016-09-05 Completed University of 00:00:00 [place] [facility] HPV9 2016-09-05 Completed University of 00:00:00 [facility] Branch HPV9 2016-09-05 Completed University of 00:00:00 [facility] TDAP 2015-05-25 Completed University of 00:00:00 [facility] TDAP 2015-05-25 Completed University of 00:00:00 [facility] TDAP 2015-05-25 Completed University of 00:00:00 [facility] TDAP 2015-05-25 Completed University of 00:00:00 [facility] TDAP 2015-05-25 Completed University of 00:00:00 [facility] TDAP 2015-05-25 Completed University of 00:00:00 [facility] Vital Signs Vital Name Observation Time Observation Value Comments Source Systolic blood 2020-12-24 17:05:00 125 mm[Hg] Univer sity of pressure [facility] Diastolic blood 2020-12-24 17:05:00 87 mm[Hg] Unive rsity of pressure [facility] Heart rate 2020-12-24 17:05:00 91 /min Universi ty of [place] [facility] Body temperature 2020-12-24 17:05:00 36.22 [place] Univ ersity of [place] [facility] Respiratory rate 2020-12-24 17:05:00 18 /min Univ ersity of [facility] Branch Oxygen saturation in 2020-12-24 17:05:00 98 /min University of Arterial blood by [facility] Pulse oximetry Branch Body weight 2020-12-24 06:32:00 68.04 kg Universi ty of [place] [facility] BMI 2020-12-24 06:32:00 28.34 kg/m2 [...] Branch Body weight 2020-04-28 16:31:00 59.081 kg [facility] BMI 2020-04-28 16:31:00 24.61 kg/m2 [facility] Procedures Procedure Date / Time Performed Performing Clinician Tomer e EXTERNAL PROVIDER 2021-01-02 06:01:00 Doctor Lalassigned, Jennifer [facility] RECORDS Name [facility] POCT GLUCOSE 2020-12-24 14:10:00 Terrance Alicea [facility] (AUTOMATED) [facility] ASSIGNMENT OF BENEFITS 2020-04-28 17:41:20 Doctor Unassigned, Jennifer [facility] Name Medical Branch FLU VACC ([id number]), 2020-04-28 17:21:26 Anel Contreras [facility] 6+ MONTHS, IM, QUAD Medical Bran ch Encounters Start End Encounter Admission Attending Care Care Encounter Source Date/Time Date/Time Type Type Clinicians Facility Department ID 2021-01-02 2021-01-02 Orders Doctor CHRISTIANSON [id number] Univers 00:00:00 00:00:00 Only Unassigned, [place] [id number] ity of [place] [facility] [id number] Negro as [phone] [address] 2020 2020 Outpatient Emily ALICEA [facility] [id number] Univers 14:00:00 14:00:00 [facility] [id number] [facility] 2020 2020 Outpatient Emily ALICEA [facility] [id number] Univers 14:00:00 14:00:00 [facility] 2020-12-26 2020-12-26 Outpatient R DARRELL [facility] [id number] Univers 16:30:00 16:30:00 [facility] [id number] [facility] 2020-12-26 2020-12-26 Outpatient Emily ALICEA [facility] [id number] Univers 16:30:00 16:30:00 [facility] 2020-12-24 2020-12-24 Outpatient X DARRELL [facility] HERMILO [id number] Univers 01:34:00 17:25:00 [facility] 2020-12-24 2020-12-24 Emergency DIVINE Alicea [id number] Univers 01:34:00 17:25:00 Terrance CORDERO [id number] it y of [facility] [id number] Negro as [id number] [facility] aleksey 091 Branch 2020-05-09 2020-05-09 Patient Sadiq SDYANELIS [id number] Univers 00:00:00 00:00:00 Outreach Joao PRIMARY [id number] i ty of [facility] 4.2.7.2.686 [place]AV[place] [id number] Ny dical [address] [place] 2020-05-09 2020-05-09 Patient Sadiq SDYANELIS [id number] 00:00:00 00:00:00 Outreach Joao PRIMARY [id number] [facility] [id number] PAVILLION [id number] [facility] 2020-04-28 2020-04-28 Office Isaías [facility] [id number] [facility] 10:17:04 11:41:16 Visit Anel Mungiua [employer] [id number] ity [facility] [id number] Negro as MATERNAL [id number] [facility] ical & CHILD [address] [place] [address] 2020-04-28 2020-04-28 [facility] [id number] 10:17:04 11:41:16 Visit Anel Munguia [employer] [id number] [facility] [id number] MATERNAL [id number] & CHILD [address] [place] [address] 2020-04-28 2020-04-28 Outpatient R ISAÍAS [facility] [id number] Univers 10:15:00 10:15:00 ANEL [id number] ity o f [facility] 2020-04-28 2020-04-28 Outpatient R ISAÍAS [facility] [id number] Univers 10:15:00 10:15:00 ANEL ity o f [facility] 2020-04-28 2020-04-28 Orders Doctor SAMMY [id number] Univers 00:00:00 00:00:00 Only Unassigned, [place] [id number] ity of [place] [facility] [id number] Negro as [phone] [address] Results Test Description Test Time Test Comments Results Result Comments Source SARS-CoV-2 (COVID-19), RT-PCR/TMA 2021-02-25 17:22:59 Test Item Value Reference Range Interpretation Comme nts SARS-CoV-2 INTERPRETATION NEGATIVE SEE NOTE S ARS-CoV-2 RNA NOT (test code = 40717) DETECTED Negative results do not preclude SARS-C oV-2 infection and should notb e used as the sole basis for patient management deci sions. Negativeresults must be combined with c linical observations, p atient history,and epi demiological information. Op timum specimen types and timin gfor peak viral levels during i nfections caused by SARS-CoV-2 h ave notbeen determined. Col lection of multiple specim ens or types ofspecimens may be necessary to detect virus. I mproper specimencollect ion and handling, seque nce variability under primers/p robes,or organism presen t below the limit of detect ion may lead to falsenegative r esults. Positive and negative pr edictive values oftesting are h ighly dependent on prevalence. False negative testresults are more likely when prevalence is high. SOURCE (test code = 35255) NASOPHARYNGEAL Note: Methodology is Juliana Leeann Real-Time RT-PCR. The expected result or reference range is NEGATI VE (Not Detected). For more information regarding COVID -19 testing to include clinica linformation, methodology det ail, intended use, FDA author ization andrecommended fact sheets for patients or a lthcare providers, see [employer] Announcement: S ARS-CoV-2 (COVID-19) by N AAT at URL below (note,fact shee ts are provided by method given in report:https:// www.[employer]/ clinicians/addy nt-communication s/ Alternativel y, see downloadable PD F fact sheet at:https://www. cpllabs.com/COVI D-19-RT-PCR UNL ESS OTHERWISE INDICATED, ALL TESTING PERFORMED [facility], [facility]. [address] [place] [address] 78 4 LIBRARY PAGE: ERICK NEAL M.D. KIMBERLY Diaz [id number] CAP ACCREDITATION N O. [id number] POCT GLUCOSE (AUTOMATED)2020-12-24 14:12:21 Test Item Value Reference Range Interpretation Comments POCT GLU (test code = 5505067784) 212 mg/dL 70-110 H Lab Interpretation (test code = Abnormal 78075-1) [facility] 15:58[facility]00 Test Item Value Reference Range Interpretation Comments GLUBED (test code = GLUBED) 148 mg/dL 65-110 H [id number] 10:51:00 Test Item Value Reference Range Interpretation Comments GLUBED (test code = GLUBED) 174 mg/dL 65-110 H [id number] 06:04:00 Test Item Value Reference Range Interpretation Comments GLUBED (test code = GLUBED) 83 mg/dL 65-110 N GLYCOSYLATED HEMOGLOBIN [id number] 04:40:00 Test Item Value Reference Range Interpretation Comments GLYCOSYLATED 8.2 % 4.8-5.9 H Any condition t hat HEMOGLOBIN (HA1C) shortens e rythocyte (test code = survival or dec reasesmean GLYHGB) erythrocyte age (e.g., recovery from a cute blood loss,hemolytic anemia) will falsely lo wer HGBA1c resultsregardle ss of the method used. HG BA1c results from kelly velasquez HbSS, HbCC, and [...] H (test code = MBG) COMPREHENSIVE METABOLIC [id number] 04:40:00 Test Item Value Reference Range Interpretation [...] fructosaminesho uld be considered for these patients. [id number] 00:14:00 Test Item Value Reference Range Interpretation Comments GLUBED (test code = GLUBED) 194 mg/dL 65-110 H COMPREHENSIVE METABOLIC [id number] 21:06:00 Test Item Value Reference Range Interpretation [...] (HA1C) (test code = GLYHGB) CBC W/AUTO [id number] 20:53:00 Test Item Value Reference Range Interpretation [...] (test NORMAL NORMAL code = PLTMR) URINALYSIS [id number] 20:08:00 Test Item Value Reference Range Interpretation [...] #/hpf NONE SEEN A URINE SAMPLE: CLEAN [id number] 20:01:00 Test Item Value Reference Range Interpretation Comments GLUBED (test code = GLUBED) 196 mg/dL 65-110 H URINALYSIS [id number] 19:53:00 Test Item Value Reference Range Interpretation [...]
[2021-09-26 19:20] LABS: Urine Blood Negative (Negative); Urine Glucose 2+ (Negative); Urine Protein Negative (Negative); Urine Specific Gravity 1.015 (1.005-1.030); Urine pH 5.5 (5.0-7.0)
--- NOTE | 2021-09-26 19:34 | RAD REPORT ---
EXAM DESCRIPTION: RAD - Lumbar Spine 3 Views - 09/26/2021 6:50 pm CLINICAL HISTORY: LOWER BACK PAIN COMPARISON: No comparisons FINDINGS: A three-view lumbar spine examination was performed. Lumbar bodies are normal in height and alignment. No fracture or acute bony process seen. No disc spa ce narrowing. No other significant findings. No pars defects identified. IMPRESSION: Negative Lumbar Spine examination.
--- NOTE | 2021-09-26 20:03 | ER ---
Nurse's Notes [facility] [place] Name: Harriett Gillette Age: 30 yrs Sex: Female : 1990 Arrival Date: 09/26/2021 Time: 16:08 Bed 13 Private MD: Diagnosis: Radiculopathy, lumbar region;Low back pain Presentation: 09/26 16:13 Chief complaint: Patient states: left leg numbness X 3 weeks. JUDIT bottom of feet eh3 tingling. Denies pain. Coronavirus screen: At this time, the client does not indicate any symptoms associated with coronavirus-19. Ebola Screen: No symptoms or risks identified at this time. Initial Sepsis Screen: Does the patient meet any 2 criteria? No. Patient's initial sepsis screen is negative. Does the patient have a suspected source of infection? No. Patient's initial sepsis screen is negative. Risk Assessment: Do you want to hurt yourself or someone else? Patient reports no desire to harm self or others. Onset of symptoms was September 26, 2021. 16:13 Method Of Arrival: Ambulatory 3 16:13 Acuity: TIFFANIE 3 eh3 Triage Assessment: 16:13 General: Appears in no apparent distress. comfortable, Behavior is calm, cooperative, eh3 appropriate for age. Pain: Denies pain. EENT: No signs and/or symptoms were reported regarding the EENT system. Neuro: Level of Consciousness is awake, alert, obeys commands, Oriented to person, place, time, situation. Cardiovascular: Capillary refill < 3 seconds Patient's skin is warm and dry. Respiratory: Airway is patent Respiratory effort is even, unlabored. GI: Abdomen is flat, non-distended. : No signs and/or symptoms were reported regarding the genitourinary system. Derm: No signs and/or symptoms reported regarding the dermatologic system. Musculoskeletal: Reports numbness in right leg. Historical: - Allergies: 16:13 Codeine; eh3 - PMHx: 16:13 Diabetes - IDDM; GESTATIONAL DM; heart valve dysfunction; Pre-eclampsia; eh3 - PSHx: 16:13 Appendectomy; eh3 - Immunization history:: Adult Immunizations up to date, Client reports receiving the 2nd dose of the Covid vaccine. - Social history:: Smoking status: Patient reports the use of cigarette tobacco products, smokes one-half pack cigarettes per day. Screenin:18 Abuse screen: Denies threats or abuse. Denies injuries from another. Nutritional jg9 screening: No deficits noted. Tuberculosis screening: No symptoms or risk factors identified. Fall Risk None identified. Assessment: 18:00 Reassessment: Patient and/or family updated on plan of care and expected duration. Pain jg9 level reassessed. Patient is alert, oriented x 3, equal unlabored respirations, skin warm/dry/pink. patient walking around in room and to bathroom without difficulty. 19:17 Pain: Denies pain. Neuro: Reports numbness in right foot, left foot and right leg. ja4 20:24 Reassessment: pt left before d/c paperwork signed and final evaluation from nurse. ja4 provider notified. Vital Signs: 16:13 BP 113 / 78; Pulse 86; Resp 18; Temp 98.1(TE); Pulse Ox 97% on R/A; Weight 68.04 kg; eh3 Height 5 ft. 0 in. (152.40 cm); Pain 0/10; 19:18 BP 99 / 85; Pulse 78; Resp 16; Pulse Ox 100% on R/A; Pain 0/10; ja4 16:13 Body Mass Index 29.29 (68.04 kg, 152.40 cm) 3 ED Course: 16:08 Patient arrived in ED. rg4 16:13 Arm band placed on right wrist. eh3 16:15 Triage completed. eh3 17:39 Jalil Stockton PA is PHCP. cp 17:39 Pramod Wilde MD is Attending Physician. cp 18:18 Awa Moyer, AHSAN is Primary Nurse. jg9 18:49 XRAY Lumbar Spine (3 Views) In Process Unspecified. EDMS 19:18 Patient has correct armband on for positive identification. Call light in reach. Adult ja4 w/ patient. 19:18 No provider procedures requiring assistance completed. ja4 Administered Medications: No medications were administered Medication: 19:18 VIS not applicable for this client. ja4 Point of Care Testing: Urine : 19:20 hCG Reading: Negative; Control Reading: Positive; jg9 Outcome: 20:02 Discharge ordered by . cp 20:56 Patient left the ED. ja4 Signatures: Dispatcher [employer] EDMS Jalil Stockton PA PA cp Stewart, Aaliyah rg4 Awa Moyer, RN RN jg9 Carri Hill, RN RN eh3 Pk Banks RN RN ja4
--- NOTE | 2021-09-26 20:03 | EDPHYS ---
Physician Documentation [facility] Name: Harriett Gillette Age: 30 yrs Sex: Female : 1990 Arrival Date: 09/26/2021 Time: 16:08 Bed 13 Private MD: ED Physician Pramod Wilde HPI: 09/26 17:45 This 30 yrs old Female presents to ER via Ambulatory with complaints of Leg cp Numbness. 17:45 The patient presents with pain that is acute, with no known mechanism of injury. The cp symptoms are located in the low back. Onset: The symptoms/episode began/occurred 2 week(s) ago. 17:45 Associated signs and symptoms: Pertinent positives: numbness to lateral aspect of right cp lower leg and lateral right foot times 3 weeks, Pertinent negatives: abdominal pain, constipation, incontinence, weakness, saddle anesthesia. The problem was sustained from unknown cause. Modifying factors: the patient symptoms are aggravated by standing, walking. Severity of symptoms: in the emergency department the symptoms are unchanged, despite home interventions. Historical: - Allergies: 16:13 Codeine; eh3 - PMHx: 16:13 Diabetes - IDDM; GESTATIONAL DM; heart valve dysfunction; Pre-eclampsia; eh3 - PSHx: 16:13 Appendectomy; eh3 - Immunization history:: Adult Immunizations up to date, Client reports receiving the 2nd dose of the Covid vaccine. - Social history:: Smoking status: Patient reports the use of cigarette tobacco products, smokes one-half pack cigarettes per day. ROS: 17:50 Constitutional: Negative for body aches, chills, fever, poor PO intake. cp 17:50 Cardiovascular: Negative for chest pain, edema, palpitations. cp 17:50 Back: Positive for pain at rest, pain with movement, of the lumbar area and left low cp back. 17:50 Neuro: Positive for numbness, of the lateral aspect of right lower leg and lateral right foot. 17:50 Neck: Negative for pain with movement, pain at rest, stiffness. cp 17:50 Respiratory: Negative for cough, shortness of breath, wheezing. 17:50 Abdomen/GI: Negative for nausea, vomiting, and diarrhea. 17:50 : Negative for urinary symptoms, difficulty urinating, bladder incontinence. 17:50 MS/extremity: Positive for paresthesias, of the lateral right foot and lateral right lower leg, Negative for injury or acute deformity, pain, swelling, tenderness. 17:50 Skin: Negative for cellulitis, rash. 17:50 All other systems are negative. cp Exam: 17:56 Constitutional: The patient appears in no acute distress, alert, awake, comfortable, cp non-toxic, well developed, well nourished. 17:56 Head/Face: Normocephalic, atraumatic. cp 17:56 Eyes: Periorbital structures: appear normal, Conjunctiva: normal, no exudate, no injection, Sclera: no appreciated abnormality, Lids and lashes: appear normal, bilaterally. 17:56 ENT: External ear(s): are unremarkable, Nose: is normal, Mouth: Lips: moist, Oral mucosa: pink and intact, moist, Posterior pharynx: Airway: no evidence of obstruction, patent. 17:56 Neck: ROM/movement: is normal, is supple, without pain, no range of motions limitations. 17:56 Chest/axilla: Inspection: normal. 17:56 Cardiovascular: Rate: normal. 17:56 Respiratory: the patient does not display signs of respiratory distress, Respirations: normal, no use of accessory muscles, no retractions, labored breathing, is not present, Breath sounds: are clear throughout, no decreased breath sounds, no stridor, no wheezing. 17:56 Abdomen/GI: Exam negative for discomfort, distension, guarding, Inspection: abdomen appears normal. 17:56 Back: pain, that is mild, of the lumbar area and left low back, ROM is normal, Straight leg raises: of both lower extremities does not illicit pain. 17:56 Skin: cellulitis, is not appreciated, no rash present. 17:56 Neuro: Orientation: to person, place \T\ time. Mentation: is normal, Motor: moves all fours, strength is normal, Sensation: numbness, that is moderate, of the lateral aspect of right lower leg and lateral right foot, Gait: is steady, at a normal pace, without difficulty, Deep tendon reflexes are 2+ (normal) in the right patellar, right Achilles, left patellar and left Achilles, Babinski testing is normal. Vital Signs: 16:13 BP 113 / 78; Pulse 86; Resp 18; Temp 98.1(TE); Pulse Ox 97% on R/A; Weight 68.04 kg; eh3 Height 5 ft. 0 in. (152.40 cm); Pain 0/10; 19:18 BP 99 / 85; Pulse 78; Resp 16; Pulse Ox 100% on R/A; Pain 0/10; ja4 16:13 Body Mass Index 29.29 (68.04 kg, 152.40 cm) eh3 MDM: 17:40 Patient medically screened. cp 18:00 Differential diagnosis: chronic back pain, Epidural or Perispinal Abcess Epidural or cp Perispinal Bleed ruptured disc. 20:00 Data reviewed: vital signs, nurses notes, radiologic studies, plain films. cp 20:00 Test interpretation: by ED physician or midlevel provider: plain radiologic studies. cp Counseling: I had a detailed discussion with the patient and/or guardian regarding: the historical points, exam findings, and any diagnostic results supporting the discharge/admit diagnosis, radiology results, the need for outpatient follow up, for definitive care, a family practitioner, to return to the emergency department if symptoms worsen or persist or if there are any questions or concerns that arise at home. 09/26 19:20 Order name: Urine Dipstick-Ancillary; Complete Time: 19:41 EDMS 09/26 17:52 Order name: XRAY Lumbar Spine (3 Views); Complete Time: 19:41 cp 09/26 17:40 Order name: Urine Dipstick-Ancillary (obtain specimen); Complete Time: 19:20 cp 09/26 17:40 Order name: Urine Test (obtain specimen); Complete Time: 19:20 cp Administered Medications: No medications were administered Point of Care Testing: Urine : 19:20 hCG Reading: Negative; Control Reading: Positive; jg9 Disposition Summary: 09/26/21 20:02 Discharge Ordered Location: Home cp Problem: new cp Symptoms: are unchanged cp Condition: Stable cp Diagnosis - Radiculopathy, lumbar region cp - Low back pain cp Followup: cp - With: Private Physician - When: 2 - 3 days - Reason: Recheck today's complaints Discharge Instructions: - Discharge Summary Sheet cp - Acute Back Pain, Adult cp - Back Exercises cp - Lumbosacral Radiculopathy cp Forms: - Medication Reconciliation Form cp - Thank You Letter cp - Antibiotic Education cp - Prescription Opioid Use cp Prescriptions: - Lidoderm 5 % Topical adhesive patch,medicated - apply 1 patch by TOPICAL route once daily; 10 patch; Refills: 0, Product cp Selection Permitted - Medrol (Trent) 4 mg Oral Tablets, Dose Pack - take 1 tablet by ORAL route as directed - follow package instructions; 1 cp packet; Refills: 0, Product Selection Permitted - orphenadrine citrate 100 mg Oral Tablet Sustained Release - take 1 tablet by ORAL route 2 times per day As needed; 20 tablet; Refills: 0, cp Product Selection Permitted Signatures: 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
[2021-09-26 23:56] VITALS: TEMP 98.1
[2021-09-27 00:22] VITALS: BP 99/85; O2SAT 100
== END 2021-09-26 20:56 | disposition home or self-care (01) ==
LOC: ER 16:06
DX: M54.16 Radiculopathy, lumbar region (principal); M54.50 Low back pain, unspecified; E11.9 Type 2 diabetes mellitus without complications; F17.210 Nicotine dependence, cigarettes, uncomplicated; Z88.5 Allergy status to narcotic agent
CPT/HCPCS: 72100; 81003; 99283

== ENCOUNTER 2021-11-13 06:45 | Emergency (ER) | payer SELFPAY ==
--- OUTSIDE RECORDS SUMMARY | 2021-11-13 06:48 | XMS REPORT | Continuity of Care Document ---
:1990 Author Organization [facility] t Address [address] [place] [address] Care Team Providers Name Role Phone ANEL CONTRERAS Primary Care Physician Unavailable Doctor Unassigned, [place] Attending Clinician Unavailable TERRANCE ALICEA Attending Clinician Unavailable Terrance Alicea DDS Attending Clinician Joao Babcock DO Attending Clinician Isaías [facility] V[facility] Attending Clinician [phone] ANEL CONTRERAS Attending Clinician Unavailable TERRANCE [...] lar -07 ity of abscess abscess 00:00: [address] Cervical Cervical Disease Active Overview: Un [...] rs glucose glucose 2-13 ity of 00:00: [place] 00 Medical [place] Abnormal Abnormal Disease Active Unive rs maternal maternal 2-12 ity of glucose glucose 00:00: [place] tolerance, tolerance, 00 Me dical antepartum antepartum Br anch History of History of Disease Active U nivers gestationa gestationa 2-11 it y of l diabetes l diabetes [place] [facility] History of History of Disease Active U nivers pre-eclamp pre-eclamp 2-11 it y of [place] in [place] in 00:00: [place] prior prior 00 Medical , , Br anch currently currently Multiparit Multiparit Disease Active U nivers y y 2-11 ity of 00:00: [address] Diet Diet Disease [facility] controlled 4-10 A2GDM- it y of gestationa gestationa 00:00: glybnurid [place] l diabetes l diabetes 00 e 2.5 mg Medical mellitus mellitus Q am and Bran ch (GDM) in (GDM) in 5 mg Q pm second second trimester trimester High risk High risk Disease Active 2014-02 Uni vers , , 1-15 [place] of ante[place] [facility] Allergies, Adverse Reactions, Alerts Allergy Allergy Status Severity Reaction(s) Onset Inactive Treating Comm ents Source Name Type Date Date Clinician No Known DA Active U [facility] Allergie 4- [place] 00:00: [place] [address] [facility] NO KNOWN Drug Active Univers ALLERGIE Class ity of S [facility] Social History Social Habit Start Date Stop Date Quantity Comments Source Exposure to Not sure University of SARS-CoV-2 [facility] (event) Branch Alcohol intake 2020-04-28 2020-04-28 0 /d University of 00:00:00 00:00:00 [facility] Tobacco Comment 2018-03-30 2018-03-30 smokes 3 Universit y of 00:00:00 00:00:[address] [facility] day. pt states she Branch stopped smoking since she found out about . Tobacco use and 2015-10-04 2015-10-04 Never used Universit y of exposure 00:00:00 00:00:00 [facility] History of 2014-12-22 Cigarette Smoker Universi ty of tobacco use 00:00:00 [facility] Sex Ass[birth year] At [birth year] Universit y of 00:00:00 00:00:00 [facility] Smoking Status Start Date Stop Date Source Current every day smoker 2015-10-04 00:00:00 Uni versity of [facility] Medications Ordered Filled Start Stop Current Ordering [...] days. dapaglifloz 2020-02 Yes Xigduo XR U nivSecure64 in-metformi 02-23 10 ity of n (XIGDUO [...] 00 First dose Medical (HumaLOG) + on [facility] Fsbg 12/24/20 at Testing 0800, Until Discontinu ed, Routine lactated 2020-02 Yes 1000mL at 50 Univer s ringers IV 1-07 mL/hr, ity of infusion 07:30: 1,000 mL, [place] 1,000 [place] 00 IV Medical Infusion, Branch CONTINUOUS , Starting on [place] 12/24/20 at 0130, Until Discontinu ed, Routine naloxone 2020-02 Yes .1mg 0.1 mg, Univer s (NARCAN) 1-07 Slow IV ity of injection 07:21: Push, PRN Negro as 0.1 mg 11 - SEE Medical INSTRUCTIO Branch NS, Starting on [place] 12/24/20 at 0121, Until Discontinu ed, Routine, Sedation/R espiratory Depression , See admin instructio ns. morpHINE 2020-02- No 2mg 2 mg, Slow Un nancy injection 2 107 11-09 IV Push, ity of mg 07:21: 07:20 Q3HPRN, [place] 11 :11 Starting Medical on [facility] 12/24/20 at 0121, Until 12/26/20 at 0120, Routine, Pain (scale 7-10) HYDROcodone 2020-02 Yes 1{tbl} 1 tablet, Univers -acetaminop 1-07 Oral, ity of hen (NORCO 07:21: Q6HPRN, [place] 5) 5-325 mg 10 Starting Medi aleksey tablet 1 on [facility] tablet 12/24/20 at 0121, Until Discontinu ed, Routine, Pain (scale 4-6) ibuprofen 2020-02 Yes 600mg 600 mg, Univ ers (ADVIL 1-07 Oral, ity of CHILDREN'S) 07:21: Q6HPRN, Negro as 100 mg/5 mL 04 Starting Medi aleksey oral on [facility] suspension 12/24/20 at 600 mg 0121, Until Discontinu ed, Routine, Pain (scale 1-3) ondansetron 2020-02 Yes 4mg 4 mg, Slow Univers (ZOFRAN 1-07 IV Push, ity of (PF)) 07:20: Q4HPRN, [place] injection 4 54 Starting Medi aleksey mg on [place] Branch 12/24/20 at 0120, Until Discontinu ed, Routine, Nausea and Vomiting (N/V) chlorhexidi 2020-02 Yes [id number] 15mL Swish and Univers ne 0.12 % 1-07 spit out ity of mouthwash 00:00: 15 mL 2 [place] 00 (two) Medical times Branch daily. ibuprofen 2020-02 Yes [id number] 600mg Take 30 mL Univers 100 mg/5 mL 1-07 by mouth ity of oral 00:00: every 6 [place] suspension 00 (six) Medical hours as Branch needed for Pain (scale 1-3). chlorhexidi 2020-02 Yes [id number] 15mL Swish and Univers ne 0.12 % 1-07 spit out ity of mouthwash 00:00: 15 mL 2 [place] 00 (two) Medical times Branch daily. ibuprofen 2020-02 Yes [id number] 600mg Take 30 mL Univers 100 mg/5 [...] Indication s: acute pain amoxicillin 2020-02- No [id number] 1{tbl} Take 1 Univers -clavulanat 02-23 11-15 tablet by it y of e 00:00: 05:59 mouth 2 [place] (AUGMENTIN) 00 :00 (two) Medical 875-125 mg times Branch per tablet daily for 7 days. Blood-Gluco Yes [id number] Use as Univers se Meter 2-18 directed ity of (FREESTYLE 00:00: [place] LITE METER) 00 Medical Kit Branch blood sugar Yes [id number] Use as Univers diagnostic 2-18 directed ity o f (FREESTYLE 00:00: [place] LITE 00 Medical STRIPS) Branch strip lancets 17 Yes [id number] Use as U nivers gauge Misc 2-18 directed ity o f 00:00: [place] 00 Medical Branch Blood-Gluco 2019-0 Yes [id number] Use as Univers se Meter 2-18 directed ity of (FREESTYLE 00:00: [place] LITE METER) 00 Medical Kit Branch blood sugar 2019 Yes [id number] Use as Univers diagnostic 2-18 directed ity o f (FREESTYLE 00:00: [place] LITE 00 Medical STRIPS) Branch strip lancets 17 0 Yes [id number] Use as U nivers gauge Misc 2-18 directed ity o f 00:00: [place] 00 Medical Branch Blood-Gluco 2019-0 Yes [id number] Use as Univers se Meter 2-18 directed ity of (FREESTYLE 00:00: [place] LITE METER) 00 Medical Kit Branch blood sugar Yes [id number] Use as Univers diagnostic 2-18 directed ity o f (FREESTYLE 00:00: [place] LITE 00 Medical STRIPS) Branch strip lancets 17 Yes [id number] Use as U nivers gauge Misc 2-18 directed ity o f 00:00: [place] 00 Medical Branch Blood-Gluco Yes [id number] Use as Univers se Meter 2-18 directed ity of (FREESTYLE 00:00: [place] LITE METER) 00 Medical Kit Branch blood sugar Yes [id number] Use as Univers diagnostic 2-18 directed ity o f (FREESTYLE 00:00: [place] LITE 00 Medical STRIPS) Branch strip lancets 17 0 Yes [id number] Use as U nivers gauge Misc 2-18 directed ity o f 00:00: [place] 00 Medical Branch Blood-Gluco 2018-0 Yes [id number] Use as Univers se Meter 2-18 directed ity of (FREESTYLE 00:00: [place] LITE METER) 00 Medical Kit Branch blood sugar 2019 Yes [id number] Use as Univers diagnostic 2-18 directed ity o f (FREESTYLE 00:00: [place] LITE 00 Medical STRIPS) Branch strip lancets 17 2018-0 Yes [id number] Use as U nivers gauge Misc 2-18 directed ity o f 00:00: [place] 00 Medical Branch Blood-Gluco 2019-0 Yes [id number] Use as Univers se Meter 2-18 directed ity of (FREESTYLE 00:00: [place] LITE METER) 00 Medical Kit Branch blood sugar 2018- Yes [id number] Use as Univers diagnostic 2-18 directed ity o f (FREESTYLE 00:00: [place] LITE 00 Medical STRIPS) Branch strip lancets 17 2018- Yes [id number] Use as U nivers gauge Misc 2-18 directed ity o f 00:00: [place] 00 Medical Branch Yes [id number] 1{packe Take 1 Univers vit 2-12 t} Packet by ity of 33-iron-fol 00:00: mouth [place] ic-dha 00 daily. Medical (SELECT-OB Branch + DHA) 29 mg iron-1 mg -250 mg combo pack Yes [id number] 1{packe Take 1 Univers vit 2-12 t} Packet by ity of 33-iron-fol 00:00: mouth [place] ic-dha 00 daily. Medical (SELECT-OB Branch + DHA) 29 mg iron-1 mg -250 mg combo pack Yes [id number] 1{packe Take 1 Univers vit 2-12 t} Packet by ity of 33-iron-fol 00:00: mouth [place] ic-dha daily. Medical (SELECT-OB Branch + DHA) 29 mg iron-1 mg -250 mg combo pack Yes [id number] 1{packe Take 1 Univers vit 2-12 t} Packet by ity of 33-iron-fol 00:00: mouth [place] ic-dha 00 daily. Medical (SELECT-OB Branch + DHA) 29 mg iron-1 mg -250 mg combo pack Yes [id number] 1{packe Take 1 Univers vit 2-12 t} Packet by ity of 33-iron-fol 00:00: mouth [place] ic-dha daily. Medical (SELECT-OB Branch + DHA) 29 mg iron-1 mg -250 mg combo pack Yes [id number] 1{packe Take 1 Univers vit 2-12 t} Packet by ity of 33-iron-fol 00:00: mouth [place] ic-dha 00 daily. Medical (SELECT-OB Branch + DHA) 29 mg iron-1 mg -250 mg combo pack Immunizations Ordered Filled Immunization Date Status Comments [facility] e Immunization Name Name Influenza Virus 2020-04-28 Completed Universit y of Vaccine Quad .5 mL 00:00:00 [place] Medical IM 6+ MO Branch Influenza Virus 2020-04-28 Completed Universit y of Vaccine Quad .5 mL 00:00:00 [place] Medical IM 6+ MO Branch Influenza Virus 2020-04-28 Completed Universit y of Vaccine Quad .5 mL 00:00:00 [place] Medical IM 6+ MO Branch Influenza Virus 2020-04-28 Completed Universit y of Vaccine Quad .5 mL 00:00:00 [place] Medical IM 6+ MO Branch Influenza Virus 2020-04-28 Completed Universit y of Vaccine Quad .5 mL 00:00:00 [facility] IM 6+ MO Branch HPV9 2016-11-06 Completed University of 00:00:00 [facility] Branch HPV9 2016-11-06 Completed University of 00:00:00 [place] [facility] HPV9 2016-11-06 Completed University of 00:00:00 [place] [facility] HPV9 2016-11-06 Completed University of 00:00:00 [place] [facility] HPV9 2016-11-06 Completed University of 00:00:00 [place] [facility] HPV9 2016-11-06 Completed University of 00:00:00 [facility] Branch HPV9 2016-09-05 Completed University of 00:00:00 [facility] Branch HPV9 2016-09-05 Completed University of 00:00:00 [place] [facility] HPV9 2016-09-05 Completed University of 00:00:00 [place] [facility] HPV9 2016-09-05 Completed University of 00:00:00 [place] [facility] HPV9 2016-09-05 Completed University of 00:00:00 [facility] Branch HPV9 2016-09-05 Completed University of 00:00:00 [facility] TDAP 2015-05-25 Completed University of 00:00:00 [facility] TDAP 2015-05-25 Completed University of 00:00:00 [facility] TDAP 2015-05-25 Completed University of 00:00:00 [facility] TDAP 2015-05-25 Completed University of 00:00:00 [facility] TDAP 2015-05-25 Completed University of 00:00:00 [facility] TDAP 2015-05-25 Completed University of 00:00:00 [facility] Vital Signs Vital Name Observation Time Observation Value Comments Source Systolic blood 2020-12-24 17:05:00 125 mm[Hg] Univer sity of pressure [facility] Diastolic blood 2020-12-24 17:05:00 87 mm[Hg] Unive rsity of pressure [facility] Heart rate 2020-12-24 17:05:00 91 /min Universi ty of [place] [facility] Body temperature 2020-12-24 17:05:00 36.22 [place] Univ ersity of [place] [facility] Respiratory rate 2020-12-24 17:05:00 18 /min Univ ersity of [facility] Branch Oxygen saturation in 2020-12-24 17:05:00 98 /min University of Arterial blood by [facility] Pulse oximetry Branch Body weight 2020-12-24 06:32:00 68.04 kg Universi ty of [place] [facility] BMI 2020-12-24 06:32:00 28.34 kg/m2 Universi ty of [place] [facility] Systolic blood 2020-04-28 16:31:00 106 mm[Hg] Univer sity of pressure [place] [facility] Diastolic blood 2020-04-28 16:31:00 73 mm[Hg] Unive rsity of pressure [place] [facility] Heart rate 2020-04-28 16:31:00 77 /min Universi ty of [place] [facility] Body temperature 2020-04-28 16:31:00 36.72 [place] Univ ersity of [place] [facility] Respiratory rate 2020-04-28 16:31:00 16 /min Univ ersity of [place] [facility] Body height 2020-04-28 16:31:00 154.9 cm Universi ty of [place] [facility] Body weight 2020-04-28 16:31:00 59.081 kg Universi ty of [place] [facility] BMI 2020-04-28 16:31:00 24.61 kg/m2 Universi ty of [place] [facility] Systolic blood 2020-04-28 16:31:00 106 mm[Hg] Univer sity of pressure [place] [facility] Diastolic blood 2020-04-28 16:31:00 73 mm[Hg] Unive rsity of pressure [place] [facility] Heart rate 2020-04-28 16:31:00 77 /min Universi ty of [place] [facility] Body temperature 2020-04-28 16:31:00 36.72 [place] Univ ersity of [place] [facility] Respiratory rate 2020-04-28 16:31:00 16 /min Univ ersity of [place] [facility] Body height 2020-04-28 16:31:00 154.9 cm Universi ty of [place] [facility] Body weight 2020-04-28 16:31:00 59.081 [facility] BMI 2020-04-28 16:31:00 24.61 kg/m2 [facility] Procedures Procedure Date / Time Performed Performing Clinician Tomer e EXTERNAL PROVIDER 2021-01-02 06:01:00 Doctor Lalassigned, Jennifer [facility] RECORDS Name [facility] POCT GLUCOSE 2020-12-24 14:10:[address] [facility] (AUTOMATED) [facility] ASSIGNMENT OF BENEFITS 2020-04-28 17:41:20 Doctor Unassigned, Jennifer [facility] Name Medical Branch FLU VACC ([id number]), 2020-04-28 17:21:26 Anel Contreras [facility] 6+ MONTHS, IM, QUAD Medical Bran ch Encounters Start End Encounter Admission Attending Care Care Encounter Source Date/Time Date/Time Type Type Clinicians Facility Department ID 2021-01-02 2021-01-02 Orders Doctor CHRISTIANSON [id number] Univers 00:00:00 00:00:00 Only Unassigned, GIL [id number] ity of [place] [facility] [id number] Negro as [id number] [address] 2020 2020 Outpatient Emily ALICEA [facility] [id number] Univers 14:00:00 14:00:00 [facility] [id number] [facility] 2020 2020 Outpatient Emily ALICEA [facility] [id number] Univers 14:00:00 14:00:00 [facility] 2020-12-26 2020-12-26 Outpatient R DARRELL [facility] [id number] Univers 16:30:00 16:30:00 [facility] [id number] [facility] 2020-12-26 2020-12-26 Outpatient Emily ALICEA [facility] [id number] Univers 16:30:00 16:30:00 [facility] 2020-12-24 2020-12-24 Outpatient X DARRELL [facility] HERMILO [id number] Univers 01:34:00 17:25:00 [facility] 2020-12-24 2020-12-24 Emergency DIVINE Alicea [id number] Univers 01:34:00 17:25:00 Terrance CORDERO [id number] [facility] [id number] Negro as [id number] [facility] aleksey 091 Branch 2020-05-09 2020-05-09 Patient Sadiq SDYANELIS [id number] Univers 00:00:00 00:00:00 Outreach Joao PRIMARY [id number] i ty of [facility] [id number] [place] [id number] Tn dical [address] [place] 2020-05-09 2020-05-09 Patient Sadiq SDYANELIS [id number] 00:00:00 00:00:00 Outreach Joao PRIMARY [id number] [facility] [id number] PAVILLION [id number] [facility] 2020-04-28 2020-04-28 Office Isaías [facility] [id number] [facility] 10:17:04 11:41:16 Visit Anel Munguia 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 [id number] ity [facility] [id number] Negro as MATERNAL [id number] [facility] ical & CHILD [address] [place] [address] 2020-04-28 2020-04-28 [facility] [id number] 10:17:04 11:41:16 Visit Anel Munguia 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 [id number] [facility] [id number] MATERNAL [id number] & CHILD [address] [place] [address] 2020-04-28 2020-04-28 Outpatient R ISAÍAS [facility] [id number] Univers 10:15:00 10:15:00 ANEL [id number] ity o f [facility] 2020-04-28 2020-04-28 Outpatient R ISAÍAS [facility] [id number] Univers 10:15:00 10:15:00 ANEL ity o f [facility] 2020-04-28 2020-04-28 Orders Doctor SAMMY [id number] Univers 00:00:00 00:00:00 Only Unassigned, [place]IL [id number] ity of [place] [facility] [id number] Negro as [id number] [address] Results Test Description Test Time Test Comments Results Result Comments Source SARS-CoV-2 (COVID-19), RT-PCR/TMA 2021-02-25 17:22:59 Test Item Value Reference Range Interpretation Comme nts SARS-CoV-2 INTERPRETATION NEGATIVE SEE NOTE S ARS-CoV-2 RNA NOT (test code = 23659) DETECTED Negative results do not preclude SARS-C [...] prevalence is high. SOURCE (test code = 27305) NASOPHARYNGEAL Note: Methodology is Juliana Leeann Real-Time RT-PCR. The expected result or reference range is NEGATI VE (Not Detected). For more information regarding COVID -19 testing to include clinica linformation, methodology det ail, intended use, FDA author ization andrecommended fact sheets for patients or a lthcare providers, see [employer]jug Announcement: S ARS-CoV-2 (COVID-19) by N AAT at URL below (note,fact shee ts are provided by method given in report:https:// www.innocutis/ clinicians/addy nt-communication s/ Alternativel y, see downloadable PD F fact sheet at:https://www. cpllabs.com/COVI D-19-RT-PCR UNL ESS OTHERWISE INDICATED, ALL TESTING PERFORMED [facility], [facility]. [address] [place] [address] 78 4 CIGAR WRAPPER TENDER AUTOMATIC: ERICK NEAL M.D. KIMBERLY Diaz [id number] CAP ACCREDITATION N O. [id number] POCT GLUCOSE (AUTOMATED)2020-12-24 14:12:21 Test Item Value Reference Range Interpretation Comments POCT GLU (test code = 4409105064) 212 mg/dL 70-110 H Lab Interpretation (test code = Abnormal 16928-7) [facility] 15:58[facility]00 Test Item Value Reference Range Interpretation Comments GLUBED (test code = GLUBED) 148 mg/dL 65-110 H [id number] 10:51:00 Test Item Value Reference Range Interpretation Comments GLUBED (test code = GLUBED) 174 mg/dL 65-110 H [id number] 06:04:00 Test Item Value Reference Range Interpretation Comments GLUBED (test code = GLUBED) 83 mg/dL 65-110 N GLYCOSYLATED HEMOGLOBIN [id number] 04:40:00 Test Item Value Reference Range Interpretation [...] H (test code = MBG) COMPREHENSIVE METABOLIC [id number] 04:40:00 Test Item Value Reference Range Interpretation [...] fructosaminesho uld be considered for these patients. [id number] 00:14:00 Test Item Value Reference Range Interpretation Comments GLUBED (test code = GLUBED) 194 mg/dL 65-110 H COMPREHENSIVE METABOLIC [id number] 21:06:00 Test Item Value Reference Range Interpretation [...] (HA1C) (test code = GLYHGB) CBC W/AUTO [id number] 20:53:00 Test Item Value Reference Range Interpretation [...] (test NORMAL NORMAL code = PLTMR) URINALYSIS [id number] 20:08:00 Test Item Value Reference Range Interpretation [...] #/hpf NONE SEEN A URINE SAMPLE: CLEAN [id number] 20:01:00 Test Item Value Reference Range Interpretation Comments GLUBED (test code = GLUBED) 196 mg/dL 65-110 H URINALYSIS [id number] 19:53:00 Test Item Value Reference Range Interpretation [...]
[2021-11-13 07:33] LABS: Urine Blood Negative (Negative); Urine Glucose 3+ (Negative); Urine Protein Negative (Negative); Urine Specific Gravity 1.025 (1.005-1.030); Urine pH 5.5 (5.0-7.0)
[2021-11-13 08:10] LABS: Absolute Lymphocytes (CBC) 1.6 K/uL (0.7-4.9); Hematocrit 34.5 % (36.0-45.0); MCV 80.1 fL (80-100); MPV 8.6 fL (7.6-11.3); RBC Red Blood Cell Count 4.31 M/uL (3.86-4.86)
[2021-11-13] MEDS ORDERED: INSULIN GLARGINE 100 UNIT/ML SQ ONE (08:20)
[2021-11-13 08:48] LABS: Albumin 2.9 g/dL (3.4-5.0); Bilirubin Total 0.3 mg/dL (0.2-1.0); Protein, Total 6.4 g/dL (6.4-8.2)
[2021-11-13 08:50] LABS: Potassium 4.2 mmol/L (3.5-5.1)
--- NOTE | 2021-11-13 09:02 | EDPHYS ---
Physician Documentation [facility] Name: Harriett Gillette Age: 30 yrs Sex: Female : 1990 Arrival Date: 11/13/2021 Time: 06:48 Bed 20 Private MD: ROBERTO Physician Jalil Tapia HPI: 11/13 08:58 This 30 yrs old Female presents to ER via Ambulatory with complaints of High augie Blood Sugar. 08:58 The patient or guardian reports hyperglycemia, that was potentially precipitated by no augie particular event. Onset: The symptoms/episode began/occurred 2 day(s) ago. Associated signs and symptoms: Pertinent positives: polydipsia, polyuria. Current symptoms: In the emergency department the patient's symptoms are unchanged from the initial presentation. The patient has experienced similar episodes in the past, a few times. 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 - Social history:: Smoking status: Patient reports the use of cigarette tobacco products. - Family history:: not pertinent. ROS: 08:58 Constitutional: Negative for fever, chills, and weight loss, Eyes: Negative for injury, augie pain, redness, and discharge, ENT: Negative for injury, pain, and discharge, Neck: Negative for injury, pain, and swelling, Cardiovascular: Negative for chest pain, palpitations, and edema, Respiratory: Negative for shortness of breath, cough, wheezing, and pleuritic chest pain, Abdomen/GI: Negative for abdominal pain, nausea, vomiting, diarrhea, and constipation, Back: Negative for injury and pain, : Negative for injury, bleeding, discharge, and swelling, MS/Extremity: Negative for injury and deformity, Skin: Negative for injury, rash, and discoloration, Neuro: Negative for headache, weakness, numbness, tingling, and seizure, Psych: Negative for depression, anxiety, suicide ideation, homicidal ideation, and hallucinations, Allergy/Immunology: Negative for hives, rash, and allergies, Hematologic/Lymphatic: Negative for swollen nodes, abnormal bleeding, and unusual bruising. 08:58 Endocrine: Positive for polydipsia, polyuria. Exam: 08:58 Constitutional: This is a well developed, well nourished patient who is awake, alert, augie and in no acute distress. Head/Face: Normocephalic, atraumatic. Eyes: Pupils equal round and reactive to light, extra-ocular motions intact. Lids and lashes normal. Conjunctiva and sclera are non-icteric and not injected. Cornea within normal limits. Periorbital areas with no swelling, redness, or edema. ENT: Nares patent. No nasal discharge, no septal abnormalities noted. Tympanic membranes are normal and external auditory canals are clear. Oropharynx with no redness, swelling, or masses, exudates, or evidence of obstruction, uvula midline. Mucous membranes moist. Neck: Trachea midline, no thyromegaly or masses palpated, and no cervical lymphadenopathy. Supple, full range of motion without nuchal rigidity, or vertebral point tenderness. No Meningismus. Chest/axilla: Normal chest wall appearance and motion. Nontender with no deformity. No lesions are appreciated. Cardiovascular: Regular rate and rhythm with a normal S1 and S2. No gallops, murmurs, or rubs. Normal PMI, no JVD. No pulse deficits. Respiratory: Lungs have equal breath sounds bilaterally, clear to auscultation and percussion. No rales, rhonchi or wheezes noted. No increased work of breathing, no retractions or nasal flaring. Abdomen/GI: Soft, non-tender, with normal bowel sounds. No distension or tympany. No guarding or rebound. No evidence of tenderness throughout. Back: No spinal tenderness. No costovertebral tenderness. Full range of motion. Skin: Warm, dry with normal turgor. Normal color with no rashes, no lesions, and no evidence of cellulitis. MS/ Extremity: Pulses equal, no cyanosis. Neurovascular intact. Full, normal range of motion. Neuro: Awake and alert, GCS 15, oriented to person, place, time, and situation. Cranial nerves II-XII grossly intact. Motor strength 5/5 in all extremities. Sensory grossly intact. Cerebellar exam normal. Normal gait. Psych: Awake, alert, with orientation to person, place and time. Behavior, mood, and affect are within normal limits. Vital Signs: 06:56 BP 128 / 83; Pulse 75; Resp 20 S; Temp 98.5(O); Pulse Ox 100% on R/A; Weight 63.5 kg bb (R); Height 5 ft. 0 in. (152.40 cm) (R); Pain 0/10; 09:23 BP 123 / 80; Pulse 76; Resp 18; Pulse Ox 100% ; Pain 0/10; jh6 06:56 Body Mass Index 27.34 (63.50 kg, 152.40 cm) bb MDM: 07:22 Patient medically screened. [facility] 08:59 Differential diagnosis: DKA, hyperglycemia. Data reviewed: vital signs, nurses notes, [facility] lab test result(s). Data interpreted: traffic monitor specialist: rate is 75 beats/min, rhythm is regular, Pulse oximetry: on room air is 100 %. Test interpretation: by ED physician or midlevel provider:. Counseling: I had a detailed discussion with the patient and/or guardian regarding: the historical points, exam findings, and any diagnostic results supporting the discharge/admit diagnosis, lab results, the need for outpatient follow up, for definitive care, a family practitioner. 11/13 07:26 Order name: CBC with Diff; Complete Time: 08:18 [facility] 11/13 07:26 Order name: Comprehensive Metabolic Panel; Complete Time: 08:53 [facility] 11/13 07:33 Order name: Urine Dipstick-Ancillary; Complete Time: 07:51 [facility] 11/13 07:37 Order name: Urine --Ancillary (enter results) 11/13 07:40 Order name: Glucose, Ancillary Testing; Complete Time: 07:51 [facility] 11/13 07:26 Order name: Urine Dipstick-Ancillary (obtain specimen); Complete Time: 07:33 [facility] 11/13 07:26 Order name: Glucose Level; Complete Time: 07:28 [facility] 11/13 07:32 Order name: Urine Test (obtain specimen); Complete Time: 07:33 [facility] Administered Medications: 07:49 Drug: NS 0.9% 1000 ml Route: IV; Rate: 1 bolus; Site: left antecubital; [facility] 07:52 CANCELLED (Duplicate Order): Semglee 100 unit/mL 25 units Sub-Q once [facility] 08:24 Drug: Semglee 100 unit/mL 25 units Route: Sub-Q; Site: left upper abdomen; 6 09:12 Drug: metFORMIN 500 mg Route: PO; jh6 Disposition Summary: 11/13/21 09:01 Discharge Ordered Location: Home [facility] Problem: new augie Symptoms: have improved augie Condition: Stable [facility] Diagnosis - Type 1 diabetes mellitus with hyperglycemia [facility] Followup: [facility] - With: Private Physician - When: 2 - 3 days - Reason: Recheck today's complaints, Continuance of care, Re-evaluation by your physician Discharge Instructions: - Discharge Summary Sheet [facility] - Diabetes Mellitus and Sick Day Management [facility] - Hyperglycemia [facility] - Diabetes Mellitus and Nutrition, Adult [facility] Forms: - Medication Reconciliation Form [facility] - Thank You Letter [facility] - Antibiotic Education [facility] - Prescription Opioid Use [facility] Prescriptions: - Metformin 500 mg Oral Tablet - take 1 tablet by ORAL route every 12 hours for 30 days Then take 1 tablet with [facility] morning meals AND evening meals; 60 tablet; Refills: 0, Product Selection Permitted Signatures: Dispatcher [employer] Jalil Hamilton MD MD cha Ballard, Brenda, RN RN Awa Carl RN RN jh6 Corrections: (The following items were deleted from the chart) 07:52 07:52 Semglee 100 unit/mL 25 units Sub-Q once ordered. [facility]
--- NOTE | 2021-11-13 09:02 | ER ---
Nurse's Notes [facility] Name: Harriett Gillette Age: 30 yrs Sex: Female : 1990 Arrival Date: 11/13/2021 Time: 06:48 Bed 20 Private MD: Diagnosis: Type 1 diabetes mellitus with hyperglycemia Presentation: 11/13 06:56 Chief complaint: Patient states: her BGL has been high the last couple of days she got bb it down yesterday but today it went back into the 500s she denies nausea, vomiting or fever. Coronavirus screen: At this time, the client does not indicate any symptoms associated with coronavirus-19. Ebola Screen: No symptoms or risks identified at this time. Initial Sepsis Screen: Does the patient meet any 2 criteria? No. Patient's initial sepsis screen is negative. Does the patient have a suspected source of infection? No. Patient's initial sepsis screen is negative. Risk Assessment: Do you want to hurt yourself or someone else? Patient reports no desire to harm self or others. Onset of symptoms was November 11, 2021. 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 - Social history:: Smoking status: Patient reports the use of cigarette tobacco products. - Family history:: not pertinent. Screenin:23 Abuse screen: Denies threats or abuse. Denies injuries from another. Nutritional jh6 screening: No deficits noted. Tuberculosis screening: No symptoms or risk factors identified. Fall Risk None identified. Assessment: 07:22 General: Appears in no apparent distress. Behavior is calm, cooperative. General: 6 states elevated BS over the last two days. has hx of elevated BS and has taken her meds. . Pain: Denies pain. Neuro: No deficits noted. Level of Consciousness is awake, alert, obeys commands, Bleach Tester are equal bilaterally Moves all extremities. 09:24 Reassessment: Patient and/or family updated on plan of care and expected duration. Pain jh6 level reassessed. Patient is alert, oriented x 3, equal unlabored respirations, skin warm/dry/pink. Patient denies pain at this time. Vital Signs: 06:56 BP 128 / 83; Pulse 75; Resp 20 S; Temp 98.5(O); Pulse Ox 100% on R/A; Weight 63.5 kg bb (R); Height 5 ft. 0 in. (152.40 cm) (R); Pain 0/10; 09:23 BP 123 / 80; Pulse 76; Resp 18; Pulse Ox 100% ; Pain 0/10; jh6 06:56 Body Mass Index 27.34 (63.50 kg, 152.40 cm) bb ED Course: 06:48 Patient arrived in ED. bp1 06:58 Triage completed. bb 06:58 Arm band placed on Patient placed in an exam room, on a stretcher, on pulse oximetry. 07:09 Awa Goins, RN is Primary Nurse. jh6 07:22 Jalil Tapia MD is Attending Physician. [facility] 07:23 Bed in low position. Call light in reach. Side rails up X 1. Adult w/ patient. jh6 07:49 Inserted saline lock: 20 gauge in left antecubital area, using aseptic technique. Blood jh6 collected. 09:24 IV discontinued, intact, bleeding controlled, No redness/swelling at site. Pressure jh6 dressing applied. 09:24 No provider procedures requiring assistance completed. jh6 Administered Medications: 07:49 Drug: NS 0.9% 1000 ml Route: IV; Rate: 1 bolus; Site: left antecubital; jh6 07:52 CANCELLED (Duplicate Order): Semglee 100 unit/mL 25 units Sub-Q once [facility] 08:24 Drug: Semglee 100 unit/mL 25 units Route: Sub-Q; Site: left upper abdomen; jh6 09:12 Drug: metFORMIN 500 mg Route: PO; jh6 Medication: 07:23 VIS not applicable for this client. jh6 Outcome: 09:01 Discharge ordered by . [facility] 09:24 Discharged to home ambulatory. 6 09:24 Condition: good 09:24 Discharge instructions given to patient, family, Instructed on discharge instructions, follow up and referral plans. Demonstrated understanding of instructions, follow-up care, medications, Prescriptions given X 1. 09:25 Patient left the ED. jh6 Signatures: Jalil Tapia MD MD cha Ballard, Brenda, RN RN Yasmeen Garcia Jennifer RN RN jh6
[2021-11-13] MEDS ORDERED: METFORMIN HCL 500 MG TAB ONE (09:10)
[2021-11-13 15:03] LABS: Urine Specific Gravity/Preg 1.025 (1.005-1.030)
[2021-11-15 18:40] VITALS: TEMP 98.5; O2SAT 100
[2021-11-15 18:46] VITALS: BP 123/80
== END 2021-11-13 09:25 | disposition home or self-care (01) ==
LOC: ER 06:45
DX: E10.65 Type 1 diabetes mellitus with hyperglycemia (principal); F17.210 Nicotine dependence, cigarettes, uncomplicated; Z79.4 Long term (current) use of insulin; Z88.5 Allergy status to narcotic agent
CPT/HCPCS: 36415; 80053; 81003; 81025; 82947; 85025; 96372; 99284

== ENCOUNTER 2022-02-15 17:37 | Emergency (ER) | payer SELFPAY ==
--- OUTSIDE RECORDS SUMMARY | 2022-02-15 17:41 | XMS REPORT | Continuity of Care Document ---
:1990 Author Organization [facility] t Address [address] [place] [address] Care Team Providers Name Role Phone ANEL METZ Primary Care Physician Unavailable GHISLAINE SAMUEL Attending Clinician Unavailable Provider, Wang Duttap Attending Clinician Unavailable Ghislaine Samuel PA-C Attending Clinician Doctor Unassigned, [place] Attending Clinician Unavailable DAKOTA VALENZUELA Attending Clinician Unavailable TERRANCE ALICEA Attending Clinician Unavailable Terrance Alicea DDS Attending Clinician Joao Babcock DO Attending Clinician Anel Cisneros Attending Clinician [phone] ANEL METZ Attending Clinician Unavailable TERRNACE ALICEA Admitting Clinician Unavailable Terrance Alicea DDS Admitting Clinician Payers Payer Name Policy Type Policy Number Effective Date Expiration Date [id number] 00:00:00 Problems Condition Condition Condition Status Onset Resolution Last Treating Co mments Source Name Details Category Date Date Treatment Clinician Date Type 1 Type 1 Disease Active 2021-02 Univers diabetes diabetes 1-05 ity of mellitus mellitus 00:00: [place] without without 00 Medical complicati complicati Br anch on on Overweight Overweight Disease Active 2021-02 U nivers (BMI (BMI 1-05 ity of 25.0-29.9) 25.0-29.9[place] [facility] Nexplanon Nexplanon Disease Active 2021-[address] in place 1-05 ity of 00:00: [place] [facility] Submandibu Submandibu Disease Active 2020-02 U nivers lar lar 1-07 ity of abscess abscess 00:00: [place] 00 [facility] Cervical Cervical Disease Active Overview: Un nancy [...] rs glucose glucose 2-13 ity of 00:00: [place] 00 [facility] Abnormal Abnormal Disease Active Unive rs maternal maternal 2-12 ity of glucose glucose 00:00: [place] tolerance, tolerance, 00 Me dical antepartum antepartum Br anch History of History of Disease Active U nivers gestationa gestationa 2-11 it y of l diabetes l diabetes [place] [facility] History of History of Disease Active U nivers pre-eclamp pre-eclamp 2-11 it y of blanca in blanca in 00:00: [place] prior prior 00 Medical , , Br anch currently currently Multiparit Multiparit Disease Active U nivers y y 2-11 ity of 00:00: [place] 00 Medical Branch Diet Diet Disease Active Overview: [facility] controlled controlled 4-10 A2GDM- it y of gestationa gestationa 00:00: glybnurid [facility] diabetes l diabetes 00 e 2.5 mg Medical mellitus mellitus Q am and Bran ch (GDM) in (GDM) in 5 mg Q pm second second trimester trimester High risk High risk Disease Active 2014-02 Uni vers , , 1-15 [place] y of ante[place] [address] [place] [address] Allergies, Adverse Reactions, Alerts Allergy Allergy Status Severity Reaction(s) Onset Inactive Treating Comm ents Source Name Type Date Date Clinician No Known DA Active U [facility] 00:00: [address] NO KNOWN Drug Active [facility] ALLERGIE Class ity of S [facility] Social History Social Habit Start Date Stop Date Quantity Comments Source Exposure to 2021-12-12 2021-12-22 Not sure [facility] [place] [facility]-CoV-2 00:00:00 12:38:00 [facility] (event) [place] Tobacco use and 2021-12-22 2021-12-22 Smokeless tobacco Un iversity of exposure 00:00:00 00:00:00 non-user [facility] Alcohol intake 2021-12-22 2021-12-22 0 /d [facility] 00:00:00 00:00:00 [facility] Tobacco Comment 2021-12-22 2021-12-22 smokes 3 Universit y of 00:00:00 00:00:00 cigarettes per [facility] day. pt states she Branch stopped smoking since she found out about . History of 2014-12-22 Cigarette Smoker Universi ty of tobacco use 00:00:00 [facility] Sex Ass[birth year] At [birth year] Universit y of 00:00:00 00:00:00 [facility] Smoking Status Start Date Stop Date Source Smokes tobacco daily 2021-12-22 00:00:00 [facility] ity of [facility] Medications Ordered Filled Start Stop Current Ordering Indication Dosage Frequency Signature Comments Components Source Medication Medication Date Date Medication? Clinician (SIG) Name Name etonogestre 2021-02- No [id number] 68mg Univers L 02-21 ity of (NEXPLANON) 19:15: 18:35 [place] implant 68 00 :00 Medical Branch etonogestre 2021-02- No [id number] 68mg 68 mg, Univers L 02-21 Subdermal, ity of (NEXPLANON) 19:15: 18:35 ONCE NOW, [place] implant 68 00 :00 1 dose, On Med ical mg Sat [place] 12/22/21 at 1415, Routine
Use approved by: 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 etonogestre 2021-02- No [id number] 68mg Univers L 02-21 ity of (NEXPLANON) 19:15: 18:35 [place] implant 68 00 :00 Medical mg Branch etonogestre 2021-02- No [id number] 68mg 68 mg, Univers L 02-21 Subdermal, ity of (NEXPLANON) 19:15: 18:35 ONCE NOW, [place] implant 68 00 :00 1 dose, On Med ical mg Sat [place] 12/22/21 at 1415, Routine
Use approved by: 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 insulin 2021-02 Yes inject Univers degludec -05 under the ity of (TRESIBA 12:59: skin. [place] U-100 59 Medical INSULIN SC) Branch insulin 2021-02 Yes inject Univers degludec 1-05 under the ity of (TRESIBA 12:59: skin. [place] U-100 59 Medical INSULIN SC) Branch dapaglifloz 2021-02 Yes Xigduo XR U nivers in-metformi 02-21 10 ity of n (XIGDUO 12:40: mg-1,000 [place] XR[place] 33 mg Medical 10-1,000 mg tablet,ext Br anch TBph ended release Take 1 tablet every day by oral route for 30 days. dapaglifloz 2021-02 Yes Xigduo XR U nivers in-metformi 02-21 10 ity of n (XIGDUO 12:40: mg-1,000 [place] XR) 33 mg Medical 10-1,000 mg tablet,ext Br anch TBph ended release Take 1 tablet every day by oral route for 30 days. cephALEXin 2021-02- Yes [id number] 500mg Take 1 Univers (KEFLEX) 02-21 capsule by ity of 500 mg 00:00: 05:59 mouth 4 [place] capsule 00 :00 (four) Medical times [place] daily for 7 days. cephALEXin 2021-02- Yes [id number] 500mg Take 1 Univers (KEFLEX) 02-21 capsule by ity of 500 mg 00:00: 05:59 mouth 4 [place] capsule 00 :00 (four) Medical times [place] daily for 7 days. ARIPiprazol Yes TAKE ONE Un nancy e 2 mg 9-01 (1) ity of tablet 00:00: TABLET(S) 00 BY MOUTH Medical IN THE [place] MORNING. ARIPiprazol Yes TAKE ONE Un nancy e 2 mg 9- (1) ity of tablet 00:00: TABLET(S) 00 BY MOUTH Medical IN THE [place] MORNING. dapaglifloz 2020-02 Yes Xigduo XR U nivers [...] dose Medical (HumaLOG) + on [facility] 12/24/20 at Testing 0800, Until Discontinu ed, Routine lactated 2020-02 Yes 1000mL at 50 Univer s ringers IV 1-07 mL/hr, ity of infusion 07:30: 1,000 mL, [place] 1,000 mL 00 IV Medical Infusion, Branch CONTINUOUS , Starting on [place] 12/24/20 at 0130, Until Discontinu ed, Routine naloxone 2020-02 Yes .1mg 0.1 mg, Univer s (NARCAN) 1-07 Slow IV ity of injection 07:21: Push, PRN Negro as 0.1 mg 11 - SEE Medical INSTRUCTIO [place] NS, Starting on [place] 12/24/20 at 0121, Until Discontinu ed, Routine, Sedation/R espiratory Depression , See admin instructio ns. morpHINE 2020-02- No 2mg 2 mg, Slow Un nancy injection 2 07 11-09 IV Push, ity of mg 07:21: 07:20 Q3HPRN, [place] 11 :11 Starting Medical on [facility] 12/24/20 at 0121, Until 12/26/20 at 0120, Routine, Pain (scale 7-10) HYDROcodone 2020-02 Yes 1{tbl} 1 tablet, Univers -acetaminop 1-07 Oral, ity of hen (NORCO 07:21: Q6HPRN, [place] 5) 5-325 mg 10 Starting Medi aleksey tablet 1 on [facility] tablet 12/24/20 at 0121, Until Discontinu ed, Routine, Pain (scale 4-6) ibuprofen 2020-02 Yes 600mg 600 mg, Univ ers (ADVIL 1-07 Oral, ity of CHILDREN'S) 07:21: Q6HPRN, Negro as 100 mg/5 mL 04 Starting Medi aleksey oral on [facility] suspension 12/24/20 at 600 mg 0121, Until Discontinu ed, Routine, Pain (scale 1-3) ondansetron 2020-02 Yes 4mg 4 mg, Slow Univers (ZOFRAN 1-07 IV Push, ity of (PF)) 07:20: Q4HPRN, [place] injection 4 54 Starting Medi aleksey mg on [place] Branch 12/24/20 at 0120, Until Discontinu ed, Routine, Nausea and Vomiting (N/V) chlorhexidi 2020-02 Yes [id number] 15mL Swish and Univers ne 0.12 % 1-07 spit out ity of mouthwash 00:00: 15 mL 2 [place] 00 (two) Medical times Branch daily. ibuprofen 2020-02 Yes [id number] 600mg Take 30 mL Univers 100 mg/5 mL 1-07 by mouth ity of oral 00:00: every 6 [place] suspension 00 (six) Medical hours as Branch needed for Pain (scale 1-3). chlorhexidi 2020-02 Yes [id number] 15mL Swish and Univers ne 0.12 % 1-07 spit out ity of mouthwash 00:00: 15 mL 2 [place] 00 (two) Medical times Branch daily. ibuprofen 2020-02 Yes [id number] 600mg Take 30 mL Univers 100 mg/5 mL 1-07 by mouth ity of oral 00:00: every 6 [place] suspension 00 (six) Medical hours as Branch needed for Pain (scale 1-3). chlorhexidi 2020-02 Yes [id number] 15mL Swish and Univers ne 0.12 % 1-07 spit out ity of mouthwash 00:00: 15 mL 2 [place] 00 (two) Medical times Branch daily. ibuprofen 2020-02 Yes [id number] 600mg Take 30 mL Univers 100 mg/5 mL 1-07 by mouth ity of oral 00:00: every 6 [place] suspension 00 (six) Medical hours as Branch needed for Pain (scale 1-3). chlorhexidi 2020-02 No [id number] 15mL Swish and Univers ne 0.12 % 02-2305 spit out ity o f mouthwash 00:00: 00:00 15 mL 2 [place] 00 :00 (two) Medical times Branch daily. ibuprofen 2020-02 No [id number] 600mg Take 30 mL Univers 100 mg/5 mL -07 11-05 by mouth ity of oral 00:00: 00:00 every 6 [place] suspension 00 :00 (six) Medical hours as Branch needed for Pain (scale 1-3). chlorhexidi 2020-02- No [id number] 15mL Swish and Univers ne 0.12 % 02-23 spit out ity o f mouthwash 00:00: 00:00 15 mL 2 [place] 00 :00 (two) Medical times Branch daily. ibuprofen 2020-02- No [id number] 600mg Take 30 mL Univers 100 mg/5 mL 02-23 by mouth ity of oral 00:00: 00:00 every 6 [place] suspension 00 :00 (six) Medical hours as Branch needed for Pain (scale 1-3). HYDROcodone 2020-02- No [id number] 1{tbl} Take 1 U nivers -acetaminop 02-23 tablet by it y of hen 5-325 00:00: 05:59 mouth [place] mg tablet 00 :00 every 6 Medical (six) Branch hours as needed for Pain (scale 4-6) for up to 7 days. Indication s: acute pain amoxicillin 2020-02- No [id number] 1{tbl} Take 1 Univers -clavulanat 02-23 tablet by it y of e 00:00: 05:59 mouth 2 [place] (AUGMENTIN) 00 :00 (two) Medical 875-125 mg times Branch per tablet daily for 7 days. Blood-Gluco Yes [id number] Use as Univers se Meter 2-18 directed ity of (FREESTYLE 00:00: [place] LITE METER) 00 Medical Kit Branch blood sugar Yes [id number] Use as Univers diagnostic 2-18 directed ity o f (FREESTYLE 00:00: [place] LITE 00 Medical STRIPS) Branch strip lancets Yes [id number] Use as U nivers gauge Misc 2-18 directed ity o f 00:00: [place] 00 Medical Branch Blood-Gluco Yes [id number] Use as Univers se Meter 2-18 directed ity of (FREESTYLE 00:00: [place] LITE METER) 00 Medical Kit Branch blood sugar Yes [id number] Use as Univers diagnostic 2-18 directed ity o f (FREESTYLE 00:00: [place] LITE 00 Medical STRIPS) Branch strip lancets 17 Yes [id number] Use as U nivers gauge Misc 2-18 directed ity o f 00:00: [place] 00 Medical Branch Blood-Gluco Yes [id number] Use as Univers se Meter 2-18 directed ity of (FREESTYLE 00:00: [place] LITE METER) 00 Medical Kit Branch lancets 17 2018-0 Yes [id number] Use as U nivers gauge Misc 2-18 directed ity o f 00:00: [place] 00 Medical Branch Blood-Gluco 2019-0 Yes [id number] Use as Univers se Meter 2-18 directed ity of (FREESTYLE 00:00: [place] LITE METER) 00 Medical Kit Branch lancets 17 0 Yes [id number] Use as U nivers gauge Misc 2-18 directed ity o f 00:00: [place] 00 Medical Branch Blood-Gluco 2018-0 Yes [id number] Use as Univers se Meter 2-18 directed ity of (FREESTYLE 00:00: [place] LITE METER) 00 Medical Kit Branch blood sugar Yes [id number] Use as Univers diagnostic 2-18 directed ity o f (FREESTYLE 00:00: [place] LITE 00 Medical STRIPS) Branch strip lancets 17 0 Yes [id number] Use as U nivers gauge Misc 2-18 directed ity o f 00:00: [place] 00 Medical Branch Blood-Gluco Yes [id number] Use as Univers se Meter 2-18 directed ity of (FREESTYLE 00:00: [place] LITE METER) 00 Medical Kit Branch blood sugar Yes [id number] Use as Univers diagnostic 2-18 directed ity o f (FREESTYLE 00:00: [place] LITE 00 Medical STRIPS) Branch strip lancets 17 2018-0 Yes [id number] Use as U nivers gauge Misc 2-18 directed ity o f 00:00: [place] 00 Medical Branch Blood-Gluco 2018-0 Yes [id number] Use as Univers se Meter 2-18 directed ity of (FREESTYLE 00:00: [place] LITE METER) 00 Medical Kit Branch blood sugar 2019-0 Yes [id number] Use as Univers diagnostic 2-18 directed ity o f (FREESTYLE 00:00: [place] LITE 00 Medical STRIPS) Branch strip lancets 17 2018-0 Yes [id number] Use as U nivers gauge Misc 2-18 directed ity o f 00:00: [place] 00 Medical Branch Blood-Gluco 2019-0 Yes [id number] Use as Univers se Meter 2-18 directed ity of (FREESTYLE 00:00: [place] LITE METER) 00 Medical Kit Branch blood sugar Yes [id number] Use as Univers diagnostic 2-18 directed ity o f (FREESTYLE 00:00: [place] LITE 00 Medical STRIPS) Branch strip lancets 17 Yes [id number] Use as U nivers gauge Misc 2-18 directed ity o f 00:00: [place] 00 Medical Branch Blood-Gluco Yes [id number] Use as Univers se Meter 2-18 directed ity of (FREESTYLE 00:00: [place] LITE METER) 00 Medical Kit Branch blood sugar Yes [id number] Use as Univers diagnostic 2-18 directed ity o f (FREESTYLE 00:00: [place] LITE 00 Medical STRIPS) Branch strip lancets 17 Yes [id number] Use as U nivers gauge Misc 2-18 directed ity o f 00:00: [place] 00 Medical Branch blood sugar 2021- No [id number] Use as Univers diagnostic 2-18 12-22 directed ity of (FREESTYLE 00:00: 00:00 [place] LITE 00 :00 Medical STRIPS) Branch strip blood sugar 2021- No [id number] Use as Univers diagnostic 2-18 12-22 directed ity of (FREESTYLE 00:00: 00:00 [place] LITE 00 :00 Medical STRIPS) Branch strip Yes [id number] 1{packe Take 1 Univers vit 2-12 t} Packet by ity of 33-iron-fol 00:00: mouth [place] ic-dha 00 daily. Medical (SELECT-OB Branch + DHA) 29 mg iron-1 mg -250 mg combo pack Yes [id number] 1{packe Take 1 Univers vit 2-12 t} Packet by ity of 33-iron-fol 00:00: mouth [place] ic-dha 00 daily. Medical (SELECT-OB Branch + DHA) 29 mg iron-1 mg -250 mg combo pack Yes [id number] 1{packe Take 1 Univers vit 2-12 t} Packet by ity of 33-iron-fol 00:00: mouth [place] ic-dha 00 daily. Medical (SELECT-OB Branch + DHA) 29 mg iron-1 mg -250 mg combo pack Yes [id number] 1{packe Take 1 Univers vit 2-12 t} Packet by ity of 33-iron-fol 00:00: mouth [place] ic-dha 00 daily. Medical (SELECT-OB Branch + DHA) 29 mg iron-1 mg -250 mg combo pack Yes [id number] 1{packe Take 1 Univers vit 2-12 t} Packet by ity of 33-iron-fol 00:00: mouth [place] ic-dha 00 daily. Medical (SELECT-OB Branch + DHA) 29 mg iron-1 mg -250 mg combo pack Yes [id number] 1{packe Take 1 Univers vit 2-12 t} Packet by ity of 33-iron-fol 00:00: mouth [place] ic-dha 00 daily. Medical (SELECT-OB Branch + DHA) 29 mg iron-1 mg -250 mg combo pack Yes [id number] 1{packe Take 1 Univers vit 2-12 t} Packet by ity of 33-iron-fol 00:00: mouth [place] ic-dha 00 daily. Medical (SELECT-OB Branch + DHA) 29 mg iron-1 mg -250 mg combo pack 2021- No [id number] 1{packe Take 1 Univers vit 2-12 11-05 t} Packet by ity of 33-iron-fol 00:00: 00:00 [place] ic-dha 00 :00 daily. Medical (SELECT-OB Branch + DHA) 29 mg iron-1 mg -250 mg combo pack 202- No [id number] 1{packe Take 1 Univers vit 2-12 11-05 t} Packet by ity of 33-iron-fol 00:00: 00:00 [place] ic-dha 00 :00 daily. Medical (SELECT-OB Branch + DHA) 29 mg iron-1 mg -250 mg combo pack Immunizations Ordered Filled Immunization Date Status Comments [facility] e Immunization Name Name HPV9 2021-12-22 Completed University of 00:00:00 [facility] HPV9 2021-12-22 Completed University of 00:00:00 [facility] Influenza Virus 2020-04-28 Completed Universit y of Vaccine Quad .5 mL 00:00:00 [facility] 6+ MO Branch Influenza Virus 2020-04-28 Completed Universit y of Vaccine [place] .5 mL 00:00:00 [place] Medical IM 6+ MO Branch Influenza Virus [...] y of Vaccine Quad .5 mL 00:00:00 [place] Medical 6+ MO Branch HPV9 2016-11-06 Completed University of 00:00:00 [facility] Branch HPV9 2016-11-06 Completed University of 00:00:00 [place] [facility] HPV9 2016-11-06 Completed University of 00:00:00 [place] [facility] HPV9 2016-11-06 Completed University of 00:00:00 [place] [facility] HPV9 2016-11-06 Completed University of 00:00:00 [place] [facility] HPV9 2016-11-06 Completed University of 00:00:00 [place] [facility] HPV9 2016-11-06 Completed University of 00:00:00 [place] [facility] HPV9 2016-11-06 Completed University of 00:00:00 [place] [facility] HPV9 2016-11-06 Completed University of 00:00:00 [place] [facility] HPV9 2016-09-05 Completed University of 00:00:00 [place] [facility] HPV9 2016-09-05 Completed University of 00:00:00 [place] [facility] HPV9 2016-09-05 Completed University of 00:00:00 [place] [facility] HPV9 2016-09-05 Completed University of 00:00:00 [place] [facility] HPV9 2016-09-05 Completed University of 00:00:00 [place] [facility] HPV9 2016-09-05 Completed University of 00:00:00 [place] [facility] HPV9 2016-09-05 Completed University of 00:00:00 [place] [facility] HPV9 2016-09-05 Completed University of 00:00:00 [facility] HPV9 2016-09-05 Completed University of 00:00:00 [place] [facility] TDAP 2015-05-25 Completed University of 00:00:00 [place] [facility] TDAP 2015-05-25 Completed University of 00:00:00 [place] [facility] TDAP 2015-05-25 Completed University of 00:00:00 [place] [facility] TDAP 2015-05-25 Completed University of 00:00:00 [place] [facility] TDAP 2015-05-25 Completed University of 00:00:00 [place] [facility] TDAP 2015-05-25 Completed University of 00:00:00 [place] [facility] TDAP 2015-05-25 Completed University of 00:00:00 [place] [facility] TDAP 2015-05-25 Completed University of 00:00:00 [place] [facility] TDAP 2015-05-25 Completed University of 00:00:00 [facility] Vital Signs Vital Name Observation Time Observation Value Comments Source Systolic blood 2021-12-22 17:38:00 119 mm[Hg] Univer sity of pressure [facility] Diastolic blood 2021-12-22 17:38:00 77 mm[Hg] Unive rsity of pressure [facility] Heart rate 2021-12-22 17:38:00 76 /min Universi ty [facility] Body temperature 2021-12-22 17:38:00 [facility]83 [place] [facility] 2021-12-22 17:38:00 18 /min Univ ersity [facility] Body height 2021-12-22 17:38:00 154.9 cm Universi ty [facility] Body weight 2021-12-22 17:38:00 60.51 kg Universi ty [facility] BMI 2021-12-22 17:38:00 25.21 kg/m2 Universi ty [facility] Systolic blood 2020-12-24 17:05:00 125 mm[Hg] Univer sity of pressure [facility] Diastolic blood 2020-12-24 17:05:00 87 mm[Hg] Unive rsity of pressure [facility] Heart rate 2020-12-24 17:05:00 91 /min Universi ty [facility] Body temperature 2020-12-24 17:05:00 36.22 [place] Univ ersity [facility] Respiratory rate 2020-12-24 17:05:00 18 /min Univ ersity of [facility] Oxygen saturation in 2020-12-24 17:05:00 98 /min University Arterial blood by [facility] Pulse oximetry Branch Body weight 2020-12-24 06:32:00 68.04 kg Universi ty of [place] [facility] BMI 2020-12-24 06:32:00 28.34 kg/m2 Universi ty of [place] [facility] Systolic blood 2020-04-28 16:31:00 106 mm[Hg] Univer sity of pressure [place] [facility] Diastolic blood 2020-04-28 16:31:00 73 mm[Hg] Unive rsity of pressure [place] [facility] Heart rate 2020-04-28 16:31:00 77 /min Universi ty of [place] [facility] Body temperature 2020-04-28 16:31:00 36.72 [place] Univ ersity of [place] [facility] Respiratory rate 2020-04-28 16:31:00 16 /min Univ ersity of [place] [facility] [place] Body height 2020-04-28 16:31:00 154.9 cm Universi ty of [place] [facility] [place] Body weight 2020-04-28 16:31:00 59.081 kg Universi ty of [place] [facility] BMI 2020-04-28 16:31:00 24.61 kg/m2 Universi ty of [place] [facility] Systolic blood 2020-04-28 16:31:00 106 mm[Hg] Univer sity of pressure [place] [facility] Diastolic blood 2020-04-28 16:31:00 73 mm[Hg] Unive rsity of pressure [place] [facility] [place] Heart rate 2020-04-28 16:31:00 77 /min Universi ty of [place] [facility] Body temperature 2020-04-28 16:31:00 36.72 [place] Univ ersity of [place] [facility] Respiratory rate 2020-04-28 16:31:00 16 /min Univ ersity of [place] [facility] Body height 2020-04-28 16:31:00 154.9 cm Universi ty of [place] [facility] Body weight 2020-04-28 16:31:00 59.081 kg Universi ty of [place] [facility] BMI 2020-04-28 16:31:00 24.61 kg/m2 Universi ty of [place] [facility] Procedures Procedure Date / Time Performed Performing Clinician Sour e POCT TEST 2021-12-22 17:49:00 Ghislaine Samuel [facility] GARDASIL 9 (HPV 9V) 2021-12-22 17:48:52 Ghislaine Samuel [facility] VACCINE [facility] ASSIGNMENT OF BENEFITS 2021-12-22 17:24:31 Doctor Unassigned, No [facility] EXTERNAL PROVIDER 2021-01-02 06:01:00 Doctor Unassigned, No [facility] [place] POCT GLUCOSE 2020-12-24 14:10:00 Terrance Alicea [place] [facility] [place] (AUTOMATED) [facility] ASSIGNMENT OF BENEFITS 2020-04-28 17:41:20 Doctor Unassigned, No [facility] FLU VACC ([id number]), 2020-04-28 17:21:26 Anel Metz [facility] 6+ MONTHS, IM, QUAD Medical Bran ch Encounters Start End Encounter Admission Attending Care Care Encounter Source Date/Time Date/Time Type Type Clinicians Facility Department ID 2021-12-22 2021-12-22 Outpatient R JIMMIE [facility] [id number] [facility] 12:45:00 13:22:01 GHISLAINE valdez [facility] 2021-12-22 2021-12-22 Office Provider, [facility] [id number] Univers 12:45:00 13:22:01 Visit Ghislaine Samuel 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 [id number] ity of [facility] [id number] Negro as MATERNAL [id number] Med ical & CHILD [address] [place] [address] 2021-12-22 2021-12-22 Orders Doctor SAMMY [id number] Univers 00:00:00 00:00:00 Only UnassignedGIL [id number] ity of [facility][1] [id number] Negro as [id number] [address] 2021-01-02 2021-01-02 Orders Doctor SAMMY [id number] Univers 00:00:00 00:00:00 Only UnassignedGIL [id number] ity of [place] [facility] [id number] Negro as [id number] [facility] 009 Branch 2020 2020 Outpatient R DARRELL [facility] [id number] Univers 14:00:00 [facility]:00[facility] 2020-12-26 2020-12-26 Outpatient R DARRELL [facility] [id number] Univers 16:30:00 16:30:00 [facility] [place] [facility] 2020-12-24 2020-12-24 Outpatient X DARRELL [facility] HERMILO [id number] Univers 01:34:00 17:25:00 [facility] [place] [facility] 2020-12-24 2020-12-24 Emergency DIVINE [place] [id number] Univers 01:34:00 17:25:00 [facility] GIL [id number] it y of [facility] [id number] Negro as [id number] [facility] 091 [place] 2020-05-09 2020-05-09 Patient Sadiq [facility] [id number] Univers 00:00:00 00:00:00 Outreach Joao PRIMARY [id number] i ty of [place] [facility] [id number] [place] [id number] [place] 388 [place] 2020-05-09 2020-05-09 Patient Sadiq NJYANELIS [id number] 00:00:00 00:00:00 Outreach Joao PRIMARY [id number] Kostas CARE [id number] PAVILLION [id number] [facility] 2020-04-28 2020-04-28 Office Isaías [facility] [id number] Univers 10:17:04 11:41:16 Visit Anel 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 [id number] ity of [facility] [id number] Negro as MATERNAL [phone] Med ical & CHILD [address] [place] [address] 2020-04-28 2020-04-28 [facility] [id number] 10:17:04 11:41:16 Visit Anel Munguia 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 [id number] [facility] [id number] MATERNAL [phone] & CHILD [address] [place] [address] 2020-04-28 2020-04-28 [facility] [id number] [facility] 10:15:00 10:15:00 ANEL valdez o f [facility] 2020-04-28 2020-04-28 Orders Doctor SAMMY [id number] Univers 00:00:00 00:00:00 Only Unassigned, GIL 350.1.13.10 ity of [place] [facility] [id number] Negro as [phone] [address] Results Test Description Test Time Test Comments Results Result Comments Source POCT TEST 2021-12-22 17:50:00 Test Item Value Reference Range Interpretation Comme nts POCT PREG (test code = 1605) Negative On board controls acceptable with C Line (test code = 3574) Yes POCT PREG LOT # (test code = 3575) POCT PREG TEST DATE (test code = 3576) [id number] 17:50:00 Test Item Value Reference Range Interpretation Comments POCT PREG (test code = 1605) Negative On board controls acceptable with C Yes Line (test code = 3574) POCT PREG LOT # (test code = 3575) POCT PREG TEST DATE (test code = 3576) [facility] RT-PCR/[id number] 17:22:59 Test Item Value Reference Interpretation Comments Range SARS-CoV-2 NEGATIVE SEE NOTE SARS-CoV-2 RNA NOT INTERPRETATION DETECTEDNegat zelda (test code = 15698) results do not preclude SARS-C oV-2 infection and s janneth sagastume used as t he sole basis for patie nt management deci sions. Negativeresults must be combined wit h clinical observ ations, patient history ,and epidemiological information. Op timum specimen types and timingfor peak viral levels during infections caus ed by SARS-CoV-2 have notbeen determi olive. Collection of m ultiple specimens or ty pes ofspecimens may be necessary to de tect virus. Improper specimencollect ion and handling, seque nce variability und er primers/probes, or organism presen t below the limit of de tection may lead to falsenegative r esults. Positive and ne gative predictive valu es oftesting are h ighly dependent on prevalence. Fal se negative testre sults are more likely when prevalence is h igh. SOURCE (test code = NASOPHARYNGEAL Note: [place] [address]) Juliana Leeann [place] l-Time RT-PCR. The exp ected result or refer ence range is NEGATI VE (Not Detected). For more information reg arding COVID-19 testin g to include clinicalinforma tion, methodology det ail, intended use, F DA authorization andrecommended fact sheets for scottie ents or healthcare prov iders, see NewTest Announcement: SARS-CoV-2 (COV ID-19) by NAAT at URL below (note,fact shee ts are provided by met hod given in report:https:// [email or web address].co.com/clinic ians/cl ient-communicat ions/ Alternatively, see downloadable PD F fact sheet at:https://www. WhatsOpen/COVID-19-R T-PCR UNLESS OTHERWIS E INDICATED, ALL TESTING PERFORMED [facility], [facility]. [address] [place] [address] SHANIA PARIKH DIRECTOR: ERICK NEAL M.D. CLIA NUMBER [id number] CAP ACCREDITATION N O. [id number] POCT GLUCOSE (AUTOMATED)2020-12-24 14:12:21 Test Item Value Reference Range Interpretation Comments POCT GLU (test code = 4142289267) 212 mg/dL 70-110 H Lab Interpretation (test code = Abnormal 72230-9) [facility] 15:58:00 Test Item Value Reference Range Interpretation Comments GLUBED (test code = GLUBED) 148 mg/dL 65-110 H [id number] 10:51:00 Test Item Value Reference Range Interpretation Comments GLUBED (test code = GLUBED) 174 mg/dL 65-110 H [id number] 06:04:00 Test Item Value Reference Range Interpretation Comments GLUBED (test code = GLUBED) 83 mg/dL 65-110 N GLYCOSYLATED HEMOGLOBIN [id number] 04:40:00 Test Item Value Reference Range Interpretation [...] H (test code = MBG) COMPREHENSIVE METABOLIC [id number] 04:40:00 Test Item Value Reference Range Interpretation [...] fructosaminesho uld be considered for these patients. [id number] 00:14:00 Test Item Value Reference Range Interpretation Comments GLUBED (test code = GLUBED) 194 mg/dL 65-110 H COMPREHENSIVE METABOLIC [id number] 21:06:00 Test Item Value Reference Range Interpretation [...] (HA1C) (test code = GLYHGB) CBC W/AUTO [id number] 20:53:00 Test Item Value Reference Range Interpretation [...] (test NORMAL NORMAL code = PLTMR) URINALYSIS [id number] 20:08:00 Test Item Value Reference Range Interpretation [...] #/hpf NONE SEEN A URINE SAMPLE: CLEAN [id number] 20:01:00 Test Item Value Reference Range Interpretation Comments GLUBED (test code = GLUBED) 196 mg/dL 65-110 H URINALYSIS [id number] 19:53:00 Test Item Value Reference Range Interpretation [...]
--- NOTE | 2022-02-15 17:51 | EDPHYS ---
Physician Documentation [facility] Name: Harriett Gillette Age: 31 yrs Sex: Female : 1990 Arrival Date: 02/15/2022 Time: 17:40 Bed 12 Private MD: ED Physician Tripp Clark HPI: 02/15 17:52 This 31 yrs old Female presents to ER via Ambulatory with complaints of Sore snw Throat. 17:52 The patient presents with sore throat. The patient describes throat pain as constant, snw raw. Onset: The symptoms/episode began/occurred suddenly, 2 day(s) ago, and became persistent. Severity of symptoms: At their worst the symptoms were moderate. Associated signs and symptoms: Pertinent positives: fever, Sore throat. The patient has experienced similar episodes in the past. It is unknown whether or not the patient has recently seen a physician. Historical: - Allergies: 17:46 Codeine; hb - PMHx: 17:46 Diabetes - IDDM; GESTATIONAL DM; heart valve dysfunction; Pre-eclampsia; hb - PSHx: 17:46 Appendectomy; hb - Immunization history:: Adult Immunizations up to date. - Social history:: Smoking status: Patient denies any tobacco usage or history of. ROS: 17:50 Eyes: Negative for injury, pain, redness, and discharge. snw 17:50 Neck: Negative for injury, pain, and swelling, Cardiovascular: Negative for chest pain, palpitations, and edema, Respiratory: Negative for shortness of breath, cough, wheezing, and pleuritic chest pain, Abdomen/GI: Negative for abdominal pain, nausea, vomiting, diarrhea, and constipation, Back: Negative for injury and pain, : Negative for injury, bleeding, discharge, and swelling, MS/Extremity: Negative for injury and deformity, Skin: Negative for injury, rash, and discoloration, Neuro: Negative for headache, weakness, numbness, tingling, and seizure, Psych: Negative for depression, anxiety, suicide ideation, homicidal ideation, and hallucinations. 17:50 Constitutional: Positive for body aches, fever. 17:50 ENT: Positive for sore throat. Exam: 17:49 Head/Face: Normocephalic, atraumatic. Eyes: Pupils equal round and reactive to light, snw extra-ocular motions intact. Lids and lashes normal. Conjunctiva and sclera are non-icteric and not injected. Cornea within normal limits. Periorbital areas with no swelling, redness, or edema. Neck: Trachea midline, no thyromegaly or masses palpated, and no cervical lymphadenopathy. Supple, full range of motion without nuchal rigidity, or vertebral point tenderness. No Meningismus. Chest/axilla: Normal chest wall appearance and motion. Nontender with no deformity. No lesions are appreciated. 17:49 Respiratory: Lungs have equal breath sounds bilaterally, clear to auscultation and percussion. No rales, rhonchi or wheezes noted. No increased work of breathing, no retractions or nasal flaring. Abdomen/GI: Soft, non-tender, with normal bowel sounds. No distension or tympany. No guarding or rebound. No evidence of tenderness throughout. Back: No spinal tenderness. No costovertebral tenderness. Full range of motion. Skin: Warm, dry with normal turgor. Normal color with no rashes, no lesions, and no evidence of cellulitis. MS/ Extremity: Pulses equal, no cyanosis. Neurovascular intact. Full, normal range of motion. Neuro: Awake and alert, GCS 15, oriented to person, place, time, and situation. Cranial nerves II-XII grossly intact. Motor strength 5/5 in all extremities. Sensory grossly intact. Cerebellar exam normal. Normal gait. Psych: Awake, alert, with orientation to person, place and time. Behavior, mood, and affect are within normal limits. 17:49 Constitutional: The patient appears alert, awake, anxious, uncomfortable. 17:49 ENT: External ear(s): are unremarkable, Ear canal(s): are normal, TM's: are normal, Nose: is normal, Mouth: is normal, Posterior pharynx: Tonsils: enlarged on the right, with erythema, erythema, Voice: is hoarse. 17:49 Cardiovascular: Rate: tachycardic, Heart sounds: normal. Vital Signs: 17:45 BP 112 / 78; Pulse 120; Resp 16; Temp 99.1(TE); Pulse Ox 100% on R/A; Weight 68.04 kg; hb Height 5 ft. (152.40 cm); Pain 7/10; 17:45 Body Mass Index 29.29 (68.04 kg, 152.40 cm) hb MDM: 17:51 Patient medically screened. snw 17:51 Data reviewed: vital signs, nurses notes. Data interpreted: Pulse oximetry: on room air snw is 100 %. Interpretation: normal. Counseling: I had a detailed discussion with the patient and/or guardian regarding: the historical points, exam findings, and any diagnostic results supporting the discharge/admit diagnosis, the need for outpatient follow up, to return to the emergency department if symptoms worsen or persist or if there are any questions or concerns that arise at home. Special discussion: Based on the history and exam findings, there is no indication for further emergent testing or inpatient evaluation. I discussed with the patient/guardian the need to see the primary care provider for further evaluation of the symptoms. Administered Medications: 18:11 Drug: Decadron - Dexamethasone 10 mg Route: IVP; Site: Other; hb 18:12 Drug: Rocephin (cefTRIAXone) 1 grams Route: IM; Site: right deltoid; hb Disposition: 18:43 Co-signature as Attending Physician, Tripp Clark MD. rn Disposition Summary: 02/15/22 17:51 Discharge Ordered Location: Home snw Condition: Stable snw Diagnosis - Acute pharyngitis, unspecified snw Followup: snw - With: Emergency Department - When: As needed - Reason: Worsening of condition Followup: snw - With: Private Physician - When: 2 - 3 days - Reason: Recheck today's complaints, Continuance of care, Re-evaluation by your physician Discharge Instructions: - Discharge Summary Sheet snw - Pharyngitis snw - Sore Throat snw - Rehydration, Adult snw Forms: - Medication Reconciliation Form snw - Thank You Letter snw - Antibiotic Education snw - Prescription Opioid Use snw - Work release form snw Prescriptions: - Zyrtec 10 mg Oral Tablet - take 1 tablet by ORAL route once daily As needed; 20 tablet; Refills: 0, snw Product Selection Permitted - Zithromax Z-Trent 250 mg Oral Tablet - take 1 tablet by ORAL route as directed for 5 days Day 1 - take two (2) tablets snw one time. Day 2, 3, 4 , 5 take one (1) tablet once daily.; 6 tablet; Refills: 0, Product Selection Permitted - Pepcid 20 mg Oral Tablet - take 1 tablet by ORAL route once daily; 20 tablet; Refills: 0, Product snw Selection Permitted Signatures: Sari Jacobo, BODILY INJURY ADJUSTER-C BODILY INJURY ADJUSTER-Csnw Tripp Clark MD MD rn Evy Esteves RN RN
--- NOTE | 2022-02-15 17:51 | ER ---
Nurse's Notes [facility] Name: Harriett Gillette Age: 31 yrs Sex: Female : 1990 Arrival Date: 02/15/2022 Time: 17:40 Bed 12 Private MD: Diagnosis: Acute pharyngitis, unspecified Presentation: 02/15 17:45 Chief complaint: Fever and sore throat today. TMAX 101.2. Coronavirus screen: At this hb time, the client does not indicate any symptoms associated with coronavirus-19. Ebola Screen: No symptoms or risks identified at this time. Initial Sepsis Screen: Does the patient meet any 2 criteria? No. Patient's initial sepsis screen is negative. Does the patient have a suspected source of infection? No. Patient's initial sepsis screen is negative. Onset of symptoms was February 14, 2022. 17:45 Method Of Arrival: Ambulatory hb 17:47 Risk Assessment: Do you want to hurt yourself or someone else? Patient reports no hb desire to harm self or others. 17:47 Acuity: TIFFANIE 4 hb Historical: - Allergies: 17:46 Codeine; hb - PMHx: 17:46 Diabetes - IDDM; GESTATIONAL DM; heart valve dysfunction; Pre-eclampsia; hb - PSHx: 17:46 Appendectomy; hb - Immunization history:: Adult Immunizations up to date. - Social history:: Smoking status: Patient denies any tobacco usage or history of. Vital Signs: 17:45 BP 112 / 78; Pulse 120; Resp 16; Temp 99.1(TE); Pulse Ox 100% on R/A; Weight 68.04 kg; hb Height 5 ft. (152.40 cm); Pain 7/10; 17:45 Body Mass Index 29.29 (68.04 kg, 152.40 cm) hb ED Course: 17:40 Patient arrived in ED. mr 17:43 Elizabeth Donato FNP-C is PHCP. kb 17:43 Tripp Clark MD is Attending Physician. kb 17:44 PHCP role handed off by Elizabeth Donato FNP-C snw 17:44 Sari Jacobo FNP-C is PHCP. snw 17:47 Triage completed. hb 17:47 Arm band placed on. hb Administered Medications: 18:11 Drug: Decadron - Dexamethasone 10 mg Route: IVP; Site: Other; hb 18:12 Drug: Rocephin (cefTRIAXone) 1 grams Route: IM; Site: right deltoid; hb Outcome: 17:51 Discharge ordered by MD. krishnamurthy 18:12 Patient left the ED. hb Signatures: Elizabeth Donato FNP-C CLASS C TRUCK DRIVER-Ckb Kylie JacoboMAXIM chenC CLASS C TRUCK DRIVER-Csnw Catrina Thompson mr Evy Esteves, RN RN hb Corrections: (The following items were deleted from the chart) 17:47 17:45 Chief complaint: Fever and sore throat today. TMAX 101.2 hb hb 17:50 17:45 BP 112 / 78; hb hb
[2022-02-15] MEDS ORDERED: LIDOCAINE 1% MPF 5 ML VIAL ONE (17:56)
[2022-02-15] MEDS ORDERED: CEFTRIAXONE 1000 MG/VIAL ONE (17:56)
[2022-02-15] MEDS ORDERED: dexAMETHasone 10 MG/ML VIAL ONE (17:56)
[2022-02-15 18:47] VITALS: BP 112/78; TEMP 99.1; O2SAT 100
== END 2022-02-15 18:12 | disposition home or self-care (01) ==
LOC: ER 17:37
DX: J02.9 Acute pharyngitis, unspecified (principal); R50.9 Fever, unspecified; Z88.5 Allergy status to narcotic agent
CPT/HCPCS: 96372; 96374; 99282; J1100; J2001

== ENCOUNTER 2022-03-13 12:28 | Emergency (ER) | payer SELFPAY ==
--- OUTSIDE RECORDS SUMMARY | 2022-03-13 12:34 | XMS REPORT | Continuity of Care Document ---
:1990 Author Organization [facility] t Address [address] [place] [address] Care Team Providers Name Role Phone ANEL METZ Primary Care Physician Unavailable GHISLAINE SAMUEL Attending Clinician Unavailable Provider, Wang Duttap Attending Clinician Unavailable Ghislaine Samuel PA-C Attending Clinician Doctor Unassigned, [place] Attending Clinician Unavailable DAKOTA VALENZUELA Attending Clinician Unavailable TERRANCE ALICEA Attending Clinician Unavailable Terrance Alicea DDS Attending Clinician Joao Babcock DO Attending Clinician Anel Cisneros Attending Clinician [phone] ANEL METZ Attending Clinician Unavailable TERRANCE ALICEA Admitting Clinician Unavailable Terrance Alicea DDS Admitting Clinician Payers Payer Name Policy Type Policy Number Effective Date Expiration Date [id number] 2018 00:00:00 Problems Condition Condition Condition Status [...] ity of 25.0-29.9) 25.0-29.9[place] [facility] Nexplanon Nexplanon Disease Active 2021-[address] in place 1-05 ity of 00:00: [place] [facility] Branch Submandibu Submandibu Disease Active 2020-02 U nivers lar lar 1-07 ity of abscess abscess 00:00: [place] 00 [facility] Cervical Cervical Disease Active Overview: Un nancy [...] glucose 2-13 ity of 00:00: [place] 00 [facility] Abnormal Abnormal Disease Active Unive rs maternal maternal 2-12 ity of glucose glucose 00:00: [place] tolerance, tolerance, 00 Me dical antepartum antepartum Br anch History of History of Disease Active U nivers gestationa gestationa 2-11 it y of l diabetes l diabetes [place] [facility] History of History of Disease Active U nivers pre-eclamp pre-eclamp 2-11 it y of blanca in blanca in 00:00: [place] prior prior 00 Medical , , Br anch currently currently Multiparit Multiparit Disease Active U nivers y y 2-11 ity of 00:00: [place] 00 Medical Branch Diet Diet Disease Active Overview: [facility] controlled controlled 4-10 A2GDM- it y of gestationa gestationa 00:00: glybnurid [facility] diabetes l diabetes 00 e 2.5 mg Medical mellitus mellitus Q am and Bran ch (GDM) in (GDM) in 5 mg Q pm second second trimester trimester High risk High risk Disease Active 2014-02 Uni vers , , 1-15 [place] of [place] [address] [place] [address] Allergies, Adverse Reactions, Alerts Allergy Allergy Status Severity Reaction(s) Onset Inactive Treating Comm ents Source Name Type Date Date Clinician No Known DA Active U [facility] 00:00: [address] NO KNOWN Drug Active [facility] ALLERGIE Class ity of S [facility] Social History Social Habit Start Date Stop Date Quantity Comments Source Exposure to 2021-12-12 2021-12-22 Not sure [facility]-CoV-2 00:00:00 12:38:00 [facility] (event) [place] Tobacco use and 2021-12-22 2021-12-22 Smokeless tobacco Un iversity of exposure 00:00:00 00:00:00 non-user [facility] Alcohol intake 2021-12-22 2021-12-22 0 /d [facility] 00:00:00 00:00:00 [facility] Tobacco Comment 2021-12-22 2021-12-22 smokes 3 Universit y of 00:00:00 00:00:00 cigarettes per [facility] day. pt states she Branch stopped smoking since she found out about . History of 2014-12-22 Cigarette Smoker Universi ty of tobacco use 00:00:00 [facility] Sex Assigned At [birth year] Universit y of 00:00:00 00:00:00 [facility] Smoking Status Start Date Stop Date Source Smokes tobacco daily 2021-12-22 00:00:00 [facility] ity of [facility] Medications Ordered Filled Start Stop Current Ordering Indication Dosage Frequency Signature Comments Components Source Medication Medication Date Date Medication? Clinician (SIG) Name Name etonogestre 2021-02- No [id number] 68mg Univers L 02-21 ity of (NEXPLANON) 19:15: 18:35 [place] implant 68 00 :00 Medical Branch etonogestre 2021-02- No [id number] 68mg 68 mg, Univers L 02-21 Subdermal, ity of (NEXPLANON) 19:15: 18:35 ONCE NOW, [place] implant 68 00 :00 1 dose, On Med ical mg Sat [place] 12/22/21 at 1415, Routine
Use approved by: [employer] etonogestre 2021-02- No [id number] 68mg Univers L 02-21 ity of (NEXPLANON) 19:15: 18:35 [place] implant 68 00 :00 Medical mg Branch etonogestre 2021-02- No [id number] 68mg 68 mg, Univers L 02-21 Subdermal, ity of (NEXPLANON) 19:15: 18:35 ONCE NOW, [place] implant 68 00 :00 1 dose, On Med ical mg Sat [place] 12/22/21 at 1415, Routine
Use approved by: [employer] insulin 2021-02 Yes inject Univers degludec -05 under the ity of (TRESIBA 12:59: skin. [place] U-100 59 Medical INSULIN SC) Branch insulin 2021-02 Yes inject Univers degludec 1-05 under the ity of (TRESIBA 12:59: skin. [place] U-100 59 Medical INSULIN SC) Branch dapaglifloz [...] route for 30 days. cephALEXin 2021-02- Yes [id number] 500mg Take 1 Univers (KEFLEX) 02-21 capsule by ity of 500 mg 00:00: 05:59 mouth 4 [place] capsule 00 :00 (four) Medical times [place] daily for 7 days. cephALEXin 2021-02- Yes [id number] 500mg Take 1 Univers (KEFLEX) 02-21 capsule by ity of 500 mg 00:00: 05:59 mouth 4 [place] capsule 00 :00 (four) Medical times [place] daily for 7 days. ARIPiprazol Yes TAKE ONE Un nancy e 2 mg 9-01 (1) ity of tablet 00:00: TABLET(S) 00 BY MOUTH Medical IN THE [place] MORNING. ARIPiprazol Yes TAKE ONE Un nancy e 2 mg 9- (1) ity of tablet 00:00: TABLET(S) 00 BY MOUTH Medical IN THE [place] MORNING. dapaglifloz 2020-02 Yes Xigduo XR U [...] 00 First dose Medical (HumaLOG) + on [facility] Fsbg 12/24/20 at Testing 0800, Until Discontinu ed, Routine lactated 2020-02 Yes 1000mL at 50 Univer s ringers IV 1-07 mL/hr, ity of infusion 07:30: 1,000 [place], [place] 1,000 mL 00 IV Medical Infusion, Branch CONTINUOUS , Starting on [place] 12/24/20 at 0130, Until Discontinu ed, Routine naloxone 2020-02 Yes .1mg 0.1 mg, Univer s (NARCAN) 1-07 Slow IV ity of injection 07:21: Push, PRN Negro as 0.1 mg 11 - SEE Medical INSTRUCTIO [place] NS, Starting on [place] 12/24/20 at 0121, Until Discontinu ed, Routine, Sedation/R espiratory Depression , See admin instructio ns. morpHINE 2020-02- No 2mg 2 mg, Slow Un nancy injection 2 07 11-09 IV Push, ity of mg 07:21: 07:20 Q3HPRN, [place] 11 :11 Starting Medical on [facility] 12/24/20 at 0121, Until 12/26/20 at 0120, Routine, Pain (scale 7-10) HYDROcodone 2020-02 Yes 1{tbl} 1 tablet, Univers -acetaminop 1-07 Oral, ity of hen (NORCO 07:21: Q6HPRN, [place] 5) 5-325 mg 10 Starting Medi aleksey tablet 1 on [facility] tablet 12/24/20 at 0121, Until Discontinu ed, Routine, Pain (scale 4-6) ibuprofen 2020-02 Yes 600mg 600 mg, Univ ers (ADVIL 1-07 Oral, ity of CHILDREN'S) 07:21: Q6HPRN, Negro as 100 mg/5 mL 04 Starting Medi aleksey oral on [facility] suspension 12/24/20 at 600 mg 0121, Until Discontinu ed, Routine, Pain (scale 1-3) ondansetron 2020-02 Yes 4mg 4 mg, Slow Univers (ZOFRAN 1-07 IV Push, ity of (PF)) 07:20: Q4HPRN, [place] injection 4 54 Starting Medi aleksey mg on [place] Branch 12/24/20 at 0120, Until Discontinu ed, Routine, Nausea and Vomiting (N/V) chlorhexidi 2020-02 Yes [id number] 15mL Swish and Univers ne 0.12 % 1-07 spit out ity of mouthwash 00:00: 15 mL 2 [place] 00 (two) Medical times Branch daily. ibuprofen 2020-02 Yes [id number] 600mg Take 30 mL Univers 100 mg/5 mL 1-07 by mouth ity of oral 00:00: every 6 [place] suspension 00 (six) Medical hours as Branch needed for Pain (scale 1-3). chlorhexidi 2020-02 Yes [id number] 15mL Swish and Univers ne 0.12 % 1-07 spit out ity of mouthwash 00:00: 15 mL 2 [place] 00 (two) Medical times Branch daily. ibuprofen 2020-02 Yes [id number] 600mg Take 30 mL Univers 100 mg/5 mL 1-07 by mouth ity of oral 00:00: every 6 [place] suspension 00 (six) Medical hours as Branch needed for Pain (scale 1-3). chlorhexidi 2020-02 Yes [id number] 15mL Swish and Univers ne 0.12 % 1-07 spit out ity of mouthwash 00:00: 15 mL 2 [place] 00 (two) Medical times Branch daily. ibuprofen 2020-02 Yes [id number] 600mg Take 30 mL Univers 100 mg/5 mL 1-07 by mouth ity of oral 00:00: every 6 [place] suspension 00 (six) Medical hours as Branch needed for Pain (scale 1-3). chlorhexidi 2020-02 No [id number] 15mL Swish and Univers ne 0.12 % 02-2305 spit out ity o f mouthwash 00:00: 00:00 15 mL 2 [place] 00 :00 (two) Medical times Branch daily. ibuprofen 2020-02 No [id number] 600mg Take 30 mL Univers 100 mg/5 mL -07 11-05 by mouth ity of oral 00:00: 00:00 every 6 [place] suspension 00 :00 (six) Medical hours as Branch needed for Pain (scale 1-3). chlorhexidi 2020-02- No [id number] 15mL Swish and Univers ne 0.12 % 02-23 spit out ity o f mouthwash 00:00: 00:00 15 mL 2 [place] 00 :00 (two) Medical times Branch daily. ibuprofen 2020-02- No [id number] 600mg Take 30 mL Univers 100 mg/5 [...] Indication s: acute pain amoxicillin 2020-02- No [id number] 1{tbl} Take 1 Univers -clavulanat 02-23 tablet by it y of e 00:00: 05:59 mouth 2 [place] (AUGMENTIN) 00 :00 (two) Medical 875-125 mg times Branch per tablet daily for 7 days. Blood-Gluco Yes [id number] Use as Univers se Meter 2-18 directed ity of (FREESTYLE 00:00: [place] LITE METER) 00 Medical Kit Branch blood sugar Yes [id number] Use as Univers diagnostic 2-18 directed ity o f (FREESTYLE 00:00: [place] LITE 00 Medical STRIPS) Branch strip lancets Yes [id number] Use as U nivers gauge Misc 2-18 directed ity o f 00:00: [place] 00 Medical Branch Blood-Gluco Yes [id number] Use as Univers se Meter 2-18 directed ity of (FREESTYLE 00:00: [place] LITE METER) 00 Medical Kit Branch blood sugar Yes [id number] Use as Univers diagnostic 2-18 directed ity o f (FREESTYLE 00:00: [place] LITE 00 Medical STRIPS) Branch strip lancets 17 Yes [id number] Use as U nivers gauge Misc 2-18 directed ity o f 00:00: [place] 00 Medical Branch Blood-Gluco Yes [id number] Use as Univers se Meter 2-18 directed ity of (FREESTYLE 00:00: [place] LITE METER) 00 Medical Kit Branch lancets 17 2018-0 Yes [id number] Use as U nivers gauge Misc 2-18 directed ity o f 00:00: [place] 00 Medical Branch Blood-Gluco 2019-0 Yes [id number] Use as Univers se Meter 2-18 directed ity of (FREESTYLE 00:00: [place] LITE METER) 00 Medical Kit Branch lancets 17 0 Yes [id number] Use as U nivers gauge Misc 2-18 directed ity o f 00:00: [place] 00 Medical Branch Blood-Gluco 2018-0 Yes [id number] Use as Univers se Meter 2-18 directed ity of (FREESTYLE 00:00: [place] LITE METER) 00 Medical Kit Branch blood sugar Yes [id number] Use as Univers diagnostic 2-18 directed ity o f (FREESTYLE 00:00: [place] LITE 00 Medical STRIPS) Branch strip lancets 17 0 Yes [id number] Use as U nivers gauge Misc 2-18 directed ity o f 00:00: [place] 00 Medical Branch Blood-Gluco Yes [id number] Use as Univers se Meter 2-18 directed ity of (FREESTYLE 00:00: [place] LITE METER) 00 Medical Kit Branch blood sugar Yes [id number] Use as Univers diagnostic 2-18 directed ity o f (FREESTYLE 00:00: [place] LITE 00 Medical STRIPS) Branch strip lancets 17 2018-0 Yes [id number] Use as U nivers gauge Misc 2-18 directed ity o f 00:00: [place] 00 Medical Branch Blood-Gluco 2018-0 Yes [id number] Use as Univers se Meter 2-18 directed ity of (FREESTYLE 00:00: [place] LITE METER) 00 Medical Kit Branch blood sugar 2019-0 Yes [id number] Use as Univers diagnostic 2-18 directed ity o f (FREESTYLE 00:00: [place] LITE 00 Medical STRIPS) Branch strip lancets 17 2018-0 Yes [id number] Use as U nivers gauge Misc 2-18 directed ity o f 00:00: [place] 00 Medical Branch Blood-Gluco 2019-0 Yes [id number] Use as Univers se Meter 2-18 directed ity of (FREESTYLE 00:00: [place] LITE METER) 00 Medical Kit Branch blood sugar Yes [id number] Use as Univers diagnostic 2-18 directed ity o f (FREESTYLE 00:00: [place] LITE 00 Medical STRIPS) Branch strip lancets 17 Yes [id number] Use as U nivers gauge Misc 2-18 directed ity o f 00:00: [place] 00 Medical Branch Blood-Gluco Yes [id number] Use as Univers se Meter 2-18 directed ity of (FREESTYLE 00:00: [place] LITE METER) 00 Medical Kit Branch blood sugar Yes [id number] Use as Univers diagnostic 2-18 directed ity o f (FREESTYLE 00:00: [place] LITE 00 Medical STRIPS) Branch strip lancets 17 Yes [id number] Use as U nivers gauge Misc 2-18 directed ity o f 00:00: [place] 00 Medical Branch blood sugar 2021- No [id number] Use as Univers diagnostic 2-18 12-22 directed ity of (FREESTYLE 00:00: 00:00 [place] LITE 00 :00 Medical STRIPS) Branch strip blood sugar 2021- No [id number] Use as Univers diagnostic 2-18 12-22 directed ity of (FREESTYLE 00:00: 00:00 [place] LITE 00 :00 Medical STRIPS) Branch strip Yes [id number] 1{packe Take 1 Univers vit 2-12 t} Packet by ity of 33-iron-fol 00:00: mouth [place] ic-dha 00 daily. Medical (SELECT-OB Branch + DHA) 29 mg iron-1 mg -250 mg combo pack Yes [id number] 1{packe Take 1 Univers vit 2-12 t} Packet by ity of 33-iron-fol 00:00: mouth [place] ic-dha 00 daily. Medical (SELECT-OB Branch + DHA) 29 mg iron-1 mg -250 mg combo pack Yes [id number] 1{packe Take 1 Univers vit 2-12 t} Packet by ity of 33-iron-fol 00:00: mouth [place] ic-dha 00 daily. Medical (SELECT-OB Branch + DHA) 29 mg iron-1 mg -250 mg combo pack Yes [id number] 1{packe Take 1 Univers vit 2-12 t} Packet by ity of 33-iron-fol 00:00: mouth [place] ic-dha 00 daily. Medical (SELECT-OB Branch + DHA) 29 mg iron-1 mg -250 mg combo pack Yes [id number] 1{packe Take 1 Univers vit 2-12 t} Packet by ity of 33-iron-fol 00:00: mouth [place] ic-dha 00 daily. Medical (SELECT-OB Branch + DHA) 29 mg iron-1 mg -250 mg combo pack Yes [id number] 1{packe Take 1 Univers vit 2-12 t} Packet by ity of 33-iron-fol 00:00: mouth [place] ic-dha 00 daily. Medical (SELECT-OB Branch + DHA) 29 mg iron-1 mg -250 mg combo pack Yes [id number] 1{packe Take 1 Univers vit 2-12 t} Packet by ity of 33-iron-fol 00:00: mouth [place] ic-dha 00 daily. Medical (SELECT-OB Branch + DHA) 29 mg iron-1 mg -250 mg combo pack 2021- No [id number] 1{packe Take 1 Univers vit 2-12 11-05 t} Packet by ity of 33-iron-fol 00:00: 00:00 [place] ic-dha 00 :00 daily. Medical (SELECT-OB Branch + DHA) 29 mg iron-1 mg -250 mg combo pack 202- No [id number] 1{packe Take 1 Univers vit 2-12 11-05 t} Packet by ity of 33-iron-fol 00:00: 00:00 [place] ic-dha 00 :00 daily. Medical (SELECT-OB Branch + DHA) 29 mg iron-1 mg -250 mg combo pack Immunizations Ordered Filled Immunization Date Status Comments [facility] e Immunization Name Name HPV9 2021-12-22 Completed University of 00:00:00 [facility] HPV9 2021-12-22 Completed University of 00:00:00 [facility] Influenza Virus 2020-04-28 Completed Universit y of Vaccine Quad .5 mL 00:00:00 [facility] 6+ MO Branch Influenza Virus 2020-04-28 Completed Universit y of Vaccine [place] .5 mL 00:00:00 [place] [facility] IM 6+ MO Branch Influenza Virus [...] y of Vaccine [place] .5 mL 00:00:00 [place] [facility] 6+ MO Branch HPV9 2016-11-06 Completed University of 00:00:00 [facility] Branch HPV9 2016-11-06 Completed University of 00:00:00 [place] [facility] HPV9 2016-11-06 Completed University of 00:00:00 [place] [facility] HPV9 2016-11-06 Completed University of 00:00:00 [place] [facility] HPV9 2016-11-06 Completed University of 00:00:00 [place] [facility] HPV9 2016-11-06 Completed University of 00:00:00 [place] [facility] HPV9 2016-11-06 Completed University of 00:00:00 [place] [facility] HPV9 2016-11-06 Completed University of 00:00:00 [place] [facility] HPV9 2016-11-06 Completed University of 00:00:00 [place] [facility] HPV9 2016-09-05 Completed University of 00:00:00 [place] [facility] HPV9 2016-09-05 Completed University of 00:00:00 [place] [facility] HPV9 2016-09-05 Completed University of 00:00:00 [place] [facility] HPV9 2016-09-05 Completed University of 00:00:00 [place] [facility] HPV9 2016-09-05 Completed University of 00:00:00 [place] [facility] HPV9 2016-09-05 Completed University of 00:00:00 [place] [facility] HPV9 2016-09-05 Completed University of 00:00:00 [place] [facility] HPV9 2016-09-05 Completed University of 00:00:00 [facility] HPV9 2016-09-05 Completed University of 00:00:00 [place] [facility] TDAP 2015-05-25 Completed University of 00:00:00 [place] [facility] TDAP 2015-05-25 Completed University of 00:00:00 [place] [facility] TDAP 2015-05-25 Completed University of 00:00:00 [place] [facility] TDAP 2015-05-25 Completed University of 00:00:00 [place] [facility] TDAP 2015-05-25 Completed University of 00:00:00 [place] [facility] TDAP 2015-05-25 Completed University of 00:00:00 [place] [facility] TDAP 2015-05-25 Completed University of 00:00:00 [place] [facility] TDAP 2015-05-25 Completed University of 00:00:00 [place] [facility] TDAP 2015-05-25 Completed University of 00:00:00 [facility] Vital Signs Vital Name Observation Time Observation Value Comments Source Systolic blood 2021-12-22 17:38:00 119 mm[Hg] Univer sity of pressure [facility] Diastolic blood 2021-12-22 17:38:00 77 mm[Hg] Unive rsity of pressure [facility] Heart rate 2021-12-22 17:38:00 76 /min Universi ty [facility] Body temperature 2021-12-22 17:38:00 35.83 [place] [facility] Respiratory rate 2021-12-22 17:38:00 18 /min Univ ersity [facility] Body height 2021-12-22 17:38:00 154.9 cm Universi ty [facility] Body weight 2021-12-22 17:38:00 60.51 kg Universi ty [facility] BMI 2021-12-22 17:38:00 25.21 kg/m2 Universi ty [facility] Systolic blood 2020-12-24 17:05:00 125 mm[Hg] Univer sity of pressure [facility] Diastolic blood 2020-12-24 17:05:00 87 mm[Hg] Unive rsity of pressure [facility] Heart rate 2020-12-24 17:05:00 91 /min Universi ty [facility] Body temperature 2020-12-24 17:05:00 36.22 [place] Univ ersity [facility] Respiratory rate 2020-12-24 17:05:00 18 /min Univ ersity of [facility] Oxygen saturation in 2020-12-24 17:05:00 98 /min University Arterial blood by [facility] Pulse oximetry Branch Body weight 2020-12-24 06:32:00 68.04 kg Universi ty of [place] [facility] BMI 2020-12-24 06:32:00 28.34 kg/m2 Universi ty of [place] [facility] Systolic blood 2020-04-28 16:31:00 106 mm[Hg] Univer sity of pressure [place] [facility] Diastolic blood 2020-04-28 16:31:00 73 mm[Hg] Unive rsity of pressure [place] [facility] Heart rate 2020-04-28 16:31:00 77 /min Universi ty of [place] [facility] Body temperature 2020-04-28 16:31:00 36.72 [place] Univ ersity of [place] [facility] Respiratory rate 2020-04-28 16:31:00 16 /min Univ ersity of [place] [facility] [place] Body height 2020-04-28 16:31:00 154.9 cm Universi ty of [place] [facility] [place] Body weight 2020-04-28 16:31:00 59.081 kg Universi ty of [place] [facility] BMI 2020-04-28 16:31:00 24.61 kg/m2 Universi ty of [place] [facility] Systolic blood 2020-04-28 16:31:00 106 mm[Hg] Univer sity of pressure [place] [facility] Diastolic blood 2020-04-28 16:31:00 73 mm[Hg] Unive rsity of pressure [place] [facility] [place] Heart rate 2020-04-28 16:31:00 77 /min Universi ty of [place] [facility] Body temperature 2020-04-28 16:31:00 36.72 [place] Univ ersity of [place] [facility] Respiratory rate 2020-04-28 16:31:00 16 /min Univ ersity of [place] [facility] Body height 2020-04-28 16:31:00 154.9 cm Universi ty of [place] [facility] Body weight 2020-04-28 16:31:00 59.081 kg Universi ty of [place] [facility] BMI 2020-04-28 16:31:00 24.61 kg/m2 Universi ty of [place] [facility] Procedures Procedure Date / Time Performed Performing Clinician Sour e POCT TEST 2021-12-22 17:49:00 Ghislaine Samuel [facility] GARDASIL 9 (HPV 9V) 2021-12-22 17:48:52 Ghislaine Samuel [facility] VACCINE [facility] ASSIGNMENT OF BENEFITS 2021-12-22 17:24:31 Doctor Unassigned, No [facility] EXTERNAL PROVIDER 2021-01-02 06:01:00 Doctor Unassigned, No [facility] POCT GLUCOSE 2020-12-24 14:10:00 Terrance Alicea [place] [facility] [place] (AUTOMATED) [facility] ASSIGNMENT OF BENEFITS 2020-04-28 17:41:20 Doctor Unassigned, No [facility] FLU VACC ([id number]), 2020-04-28 17:21:26 Anel Metz [facility] 6+ MONTHS, IM, QUAD Medical Bran ch Encounters Start End Encounter Admission Attending Care Care Encounter Source Date/Time Date/Time Type Type Clinicians Facility Department ID 2021-12-22 2021-12-22 Outpatient R [facility] [id number] [facility] 12:45:00 13:22:01 GHISLAINE valdez [facility] 2021-12-22 2021-12-22 Office Provider, [facility] 1 [id number] Univers 12:45:00 13:22:01 Visit Ghislaine Samuel [employer] [id number] ity of [facility] [id number] Negro as MATERNAL [id number] Med ical & CHILD [address] [place] [address] 2021-12-22 2021-12-22 Orders Doctor SAMMY [id number] Univers 00:00:00 00:00:00 Only UnassignedGIL [id number] [facility] [id number] Negro as [id number] [address] 2021-01-02 2021-01-02 Orders Doctor SAMMY [id number] Univers 00:00:00 00:00:00 Only UnassignedGIL [id number] ity of [place] [facility] [id number] Negro as [phone] [facility] 009 Branch 2020 2020 Outpatient R [facility] [id number] Univers 14:00:00 [facility]:00[facility] 2020-12-26 2020-12-26 Outpatient R [facility] [id number] Univers 16:30:00 16:30:00 [facility] 2020-12-24 2020-12-24 Outpatient X [facility] HERMILO [id number] Univers 01:34:00 17:25:00 [facility] 2020-12-24 2020-12-24 Emergency DIVINE [place]a [id number] Univers 01:34:00 17:25:00 [facility] GIL [id number] it y of [facility] [id number] Negro as [id number] [facility] 091 [place] 2020-05-09 2020-05-09 Patient Sadiq [facility] [id number] Univers 00:00:00 00:00:00 Outreach Joao PRIMARY [id number] i ty of [place] [facility] 4.2.7.2.686 [place] P[place] [id number] Mi dical [address] [place] 2020-05-09 2020-05-09 Patient Sadiq DCYANELIS [id number] 00:00:00 00:00:00 Outreach Joao PRIMARY [id number] [place] [facility] 4.2.7.2.686 PAVILLION [id number] [facility] 2020-04-28 2020-04-28 Office Isaías [facility] [id number] Univers 10:17:04 11:41:16 Visit Anel Munguia [employer] [id number] ity of [facility] [id number] Negro as MATERNAL [id number] Med ical & CHILD [address] [place] [address] 2020-04-28 2020-04-28 [facility] [id number] 10:17:04 11:41:16 Visit Anel Munguia [employer] [id number] [facility] [id number] MATERNAL [id number] & CHILD [address] [place] [address] 2020-04-28 2020-04-28 [facility] [id number] [facility] 10:15:00 10:15:00 ANEL valdez o f [facility] 2020-04-28 2020-04-28 Orders Doctor SAMMY [id number] Univers 00:00:00 00:00:00 Only Unassigned, [place] [id number] ity of [place] [facility] [id number] Negro as [phone] [address] Results Test Description Test Time Test Comments Results Result Comments Source POCT TEST 2021-12-22 17:50:00 Test Item Value Reference Range Interpretation Comme nts POCT PREG (test code = 1605) Negative On board controls acceptable with C Line (test code = 3574) Yes POCT PREG LOT # (test code = 3575) POCT PREG TEST DATE (test code = 3576) [id number]50:00 Test Item Value Reference Range Interpretation Comments POCT PREG (test code = 1605) Negative On board controls acceptable with C Yes Line (test code = 3574) POCT PREG LOT # (test code = 3575) POCT PREG TEST DATE (test code = 3576) [facility] RT-PCR/[id number] 17:22:59 Test Item Value Reference Interpretation Comments Range SARS-CoV-2 NEGATIVE SEE NOTE SARS-CoV-2 RNA NOT INTERPRETATION DETECTEDNegat zelda (test code = 44751) results do not preclude SARS-C oV-2 infection [...] (test code = NASOPHARYNGE[place]: [place] [address]) Juliana Leeann Zahira l-Time RT-PCR. The exp ected result or [...] provided by met hod given in report:https:// www.[employer].com/clinic ians/cl ient-communicat ions/ Alternatively, see downloadable PD F fact sheet at:https://www. [employer]/COVID-19-R T-PCR UNLESS OTHERWIS E INDICATED, ALL TESTING PERFORMED [facility], [facility]. [address] [place] [address] SHANIA PARIKH DIRECTOR: ERICK NEAL M.D. CLIA NUMBER [id number] CAP ACCREDITATION N O. [id number] POCT GLUCOSE (AUTOMATED)2020-12-24 14:12:21 Test Item Value Reference Range Interpretation Comments POCT GLU (test code = 4719750199) 212 mg/dL 70-110 H Lab Interpretation (test code = Abnormal 22358-7) [facility] 15[facility]58:00 Test Item Value Reference Range Interpretation Comments GLUBED (test code = GLUBED) 148 mg/dL 65-110 H [id number] 10:51:00 Test Item Value Reference Range Interpretation Comments GLUBED (test code = GLUBED) 174 mg/dL 65-110 H [id number] 06:04:00 Test Item Value Reference Range Interpretation Comments GLUBED (test code = GLUBED) 83 mg/dL 65-110 N GLYCOSYLATED HEMOGLOBIN [id number] 04:40:00 Test Item Value Reference Range Interpretation [...] H (test code = MBG) COMPREHENSIVE METABOLIC [id number] 04:40:00 Test Item Value Reference Range Interpretation [...] fructosaminesho uld be considered for these patients. [id number] 00:14:00 Test Item Value Reference Range Interpretation Comments GLUBED (test code = GLUBED) 194 mg/dL 65-110 H COMPREHENSIVE METABOLIC [id number] 21:06:00 Test Item Value Reference Range Interpretation [...] (HA1C) (test code = GLYHGB) CBC W/AUTO [id number] 20:53:00 Test Item Value Reference Range Interpretation [...] (test NORMAL NORMAL code = PLTMR) URINALYSIS [id number] 20:08:00 Test Item Value Reference Range Interpretation [...] #/hpf NONE SEEN A URINE SAMPLE: CLEAN [id number] 20:01:00 Test Item Value Reference Range Interpretation Comments GLUBED (test code = GLUBED) 196 mg/dL 65-110 H URINALYSIS [id number] 19:53:00 Test Item Value Reference Range Interpretation [...]
[2022-03-13 13:41] LABS: Absolute Lymphocytes (CBC) 2.1 K/uL (0.7-4.9); Hematocrit 38.5 % (36.0-45.0); Lymphocytes % 26.6 % (15.3-44.8); MCV 81.7 fL (80-100); MPV 8.8 fL (7.6-11.3); RBC Red Blood Cell Count 4.71 M/uL (3.86-4.86)
[2022-03-13 13:44] LABS: Urine Blood Negative (Negative); Urine Glucose 3+ (Negative); Urine Protein Negative (Negative); Urine pH 6.5 (5.0-7.0)
[2022-03-13 13:56] LABS: Albumin 3.6 g/dL (3.4-5.0); Bilirubin Total 0.2 mg/dL (0.2-1.0); Potassium 3.8 mmol/L (3.5-5.1); Protein, Total 7.5 g/dL (6.4-8.2)
[2022-03-13] MEDS ORDERED: NA CHLORIDE 0.9% 1,000 ML ONE (14:03)
[2022-03-13] MEDS ORDERED: INSULIN -REGULAR HUMAN 50 UNIT/0.5 ML ML ONE (14:03)
--- NOTE | 2022-03-13 15:46 | EDPHYS ---
Physician Documentation [facility] Name: Harriett Gillette Age: 31 yrs Sex: Female : 1990 Arrival Date: 03/13/2022 Time: 12:30 Bed DX3 Private MD: ED Physician Mc Rosenberg HPI: 03/13 12:56 This 31 yrs old Female presents to ER via Ambulatory with complaints of High jmm Blood Sugar. 12:56 Onset: The symptoms/episode began/occurred gradually. jmm 12:56 Associated signs and symptoms: Pertinent negatives:. This is a 31 year old female with jmm a history of dm that presents to the ED with complaints of elevated BGL and foul smelling urine. Denies chest pain. . Historical: - Allergies: 12:51 Codeine; iw 12:51 Hydrocodone-Acetaminophen; iw - PMHx: 12:51 Diabetes - IDDM; GESTATIONAL DM; heart valve dysfunction; Pre-eclampsia; iw - PSHx: 12:51 Appendectomy; iw - Immunization history:: Adult Immunizations unknown. - Social history:: Smoking status: unknown. ROS: 12:56 Constitutional: Negative for fever, chills, and weight loss, Cardiovascular: Negative jmm for chest pain, palpitations, and edema. 12:56 Respiratory: Positive for shortness of breath. 12:56 : Positive for injury or acute deformity. 12:56 All other systems are negative. Exam: 12:56 Constitutional: This is a well developed, well nourished patient who is awake, alert, jmm and in no acute distress. Head/Face: atraumatic. Eyes: EOMI, no conjunctival erythema appreciated ENT: Moist Mucus Membranes Neck: Trachea midline, Supple Chest/axilla: Normal chest wall appearance and motion. Cardiovascular: Regular rate and rhythm. No edema appreciated Respiratory: Normal respirations, no respiratory distress appreciated Abdomen/GI: Non distended Back: Normal ROM Skin: General appearance color normal MS/ Extremity: Moves all extremities, no obvious deformities appreciated, no edema noted to the lower extremities Neuro: Awake and alert Psych: Behavior is normal, Mood is normal, Patient is cooperative and pleasant Vital Signs: 12:51 BP 110 / 78; Pulse 77; Resp 16; Temp 98.6; Pulse Ox 100% on R/A; Weight 68.04 kg; iw Height 5 ft. 0 in. (152.40 cm); 15:25 BP 102 / 68; Pulse 72; Resp 15; Pulse Ox 100% ; jl7 12:51 Body Mass Index 29.29 (68.04 kg, 152.40 cm) MDM: 13:03 Patient medically screened. [facility] 15:43 Data reviewed: vital signs, nurses notes, lab test result(s). I considered the [facility] following discharge prescriptions or medication management in the emergency department Medications were administered in the Emergency Department. See MAR. Counseling: I had a detailed discussion with the patient and/or guardian regarding: the historical points, exam findings, and any diagnostic results supporting the discharge/admit diagnosis, lab results, the need for outpatient follow up, to return to the emergency department if symptoms worsen or persist or if there are any questions or concerns that arise at home. ED course: Hyperglycemia without ketosis. Advised to follow up with pcp for adjustment of MD medication. Patient otherwise given strict return precautions. patient understood and given strict return precautions. . 03/13 12:56 Order name: CBC with Diff; Complete Time: 13:43 [facility] 03/13 12:56 Order name: CMP; Complete Time: 13:57 [facility] 03/13 13:14 Order name: Glucose, Ancillary Testing; Complete Time: 13:43 [facility] 03/13 13:44 Order name: Urine Dipstick-Ancillary; Complete Time: 13:47 [facility] 03/13 13:50 Order name: Urine --Ancillary (enter results); Complete Time: 14:19 03/13 15:37 Order name: Glucose, Ancillary Testing; Complete Time: 15:41 [facility] 03/13 12:56 Order name: Urine Dipstick-Ancillary (obtain specimen); Complete Time: 13:35 [facility] 03/13 12:57 Order name: Urine Test (obtain specimen); Complete Time: 13:35 [facility] 03/13 14:51 Order name: Fingerstick Glucose; Complete Time: 15:25 [facility] Administered Medications: 14:08 Drug: NS 0.9% 1000 ml Route: IV; Rate: 1 bolus; Site: left antecubital; 7 14:08 Drug: Insulin Regular Human 10 units {Co-Signature: iw (Analia Espino RN).} Route: jl7 IVP; Site: left antecubital; Disposition: 15:57 Co-signature as Attending Physician, Mc Rosenberg MD I reviewed the patient's care rt provided by the Advanced Practice Provider and agree with the diagnosis and treatment plan. Disposition Summary: 03/13/22 15:45 Discharge Ordered Location: Home jmm Condition: Stable jmm Diagnosis - Hyperglycemia, unspecified jmm Followup: jmm - With: Private Physician - When: 2 - 3 days - Reason: Recheck today's complaints, Continuance of care, Re-evaluation by your physician Discharge Instructions: - Discharge Summary Sheet jm - Hyperglycemia jmm Forms: - Medication Reconciliation Form jmm - Thank You Letter jmm - Antibiotic Education jmm - Prescription Opioid Use jm Signatures: Dispatcher [employer] EDAndrew Platt PA PA jmm Williams, Irene, AHSAN RN Lisette Shannon RN RN jl7 Mc Rosenberg MD MD rt Analia Espino RN iw
--- NOTE | 2022-03-13 15:46 | ER ---
Nurse's Notes [facility] Name: Harriett Gillette Age: 31 yrs Sex: Female : 1990 Arrival Date: 03/13/2022 Time: 12:30 Bed DX3 Private MD: Diagnosis: Hyperglycemia, unspecified Presentation: 03/13 12:49 Chief complaint: Patient states: my blood sugars have been running high all week , iw takes insulin, metformin and farxiga , has been taking meds as prescribed. 12:49 Method Of Arrival: Ambulatory iw 12:51 Coronavirus screen: At this time, the client does not indicate any symptoms associated iw with coronavirus-19. Ebola Screen: Patient negative for fever greater than or equal to 101.5 degrees Fahrenheit, and additional compatible Ebola Virus Disease symptoms Patient denies exposure to infectious person. Patient denies travel to an Ebola-affected area in the 21 days before illness onset. No symptoms or risks identified at this time. Initial Sepsis Screen: Does the patient meet any 2 criteria? No. Patient's initial sepsis screen is negative. Does the patient have a suspected source of infection? No. Patient's initial sepsis screen is negative. Risk Assessment: Do you want to hurt yourself or someone else? Patient reports no desire to harm self or others. Onset of symptoms was March 08, 2022. 12:51 Acuity: TIFFANIE 3 iw Historical: - Allergies: 12:51 Codeine; iw 12:51 Hydrocodone-Acetaminophen; iw - PMHx: 12:51 Diabetes - IDDM; GESTATIONAL DM; heart valve dysfunction; Pre-eclampsia; iw - PSHx: 12:51 Appendectomy; iw - Immunization history:: Adult Immunizations unknown. - Social history:: Smoking status: unknown. Screenin:25 [facility] ED Fall Risk Assessment (Adult) History of falling in the last 3 months, jl7 including since admission No falls in past 3 months (0 pts) Confusion or Disorientation No (0 pts) Intoxicated or Sedated No (0 pts) Impaired Gait No (0 pts) Mobility Assist Device Used No (0 pt) Altered Elimination No (0 pt) Score/Fall Risk Level 0 - 2 = Low Risk Oriented to surroundings. Abuse screen: Denies threats or abuse. Denies injuries from another. Nutritional screening: No deficits noted. Tuberculosis screening: No symptoms or risk factors identified. Assessment: 15:25 Reassessment: BGL 179. jl7 Vital Signs: 12:51 BP 110 / 78; Pulse 77; Resp 16; Temp 98.6; Pulse Ox 100% on R/A; Weight 68.04 kg; iw Height 5 ft. 0 in. (152.40 cm); 15:25 BP 102 / 68; Pulse 72; Resp 15; Pulse Ox 100% ; jl7 12:51 Body Mass Index 29.29 (68.04 kg, 152.40 cm) ED Course: 12:30 Patient arrived in ED. am2 12:51 Triage completed. iw 12:51 Arm band placed on. 12:53 Andrew Lopez PA is PHCP. [facility] 12:53 Mc Rosenberg MD is Attending Physician. [facility] 13:44 Lisette Osman, RN is Primary Nurse. jl7 13:47 Initial lab(s) drawn, by mn, sent to lab. ks8 14:05 Inserted saline lock: 22 gauge in left antecubital area, using aseptic technique. jl7 14:39 Patient has correct armband on for positive identification. jl7 15:51 No provider procedures requiring assistance completed. IV discontinued, intact, jl7 bleeding controlled, No redness/swelling at site. Pressure dressing applied. Administered Medications: 14:08 Drug: NS 0.9% 1000 ml Route: IV; Rate: 1 bolus; Site: left antecubital; jl7 14:08 Drug: Insulin Regular Human 10 units {Co-Signature: (Analia Espino RN).} Route: jl7 IVP; Site: left antecubital; Medication: 15:25 VIS not applicable for this client. jl7 Outcome: 15:45 Discharge ordered by . [facility] 15:51 Discharged to home ambulatory. jl7 15:51 Condition: stable 15:51 Discharge instructions given to patient, Instructed on discharge instructions, follow up and referral plans. Demonstrated understanding of instructions, follow-up care. 15:52 Patient left the ED. jl7 Signatures: Andrew Lopez PA PA jmm Williams, Irene, RN RN Lisette Osman RN RN jl7 Mayte Vidal am2 Scar Riddle ks8 Analia Espino RN
[2022-03-13 16:05] VITALS: TEMP 98.6; O2SAT 100
[2022-03-13 16:16] VITALS: BP 102/68
== END 2022-03-13 15:52 | disposition home or self-care (01) ==
LOC: ER 12:28
DX: E11.65 Type 2 diabetes mellitus with hyperglycemia (principal)
CPT/HCPCS: 36415; 80053; 81003; 81025; 82947; 85025; J1815; J7030

== ENCOUNTER 2022-07-14 21:55 | Emergency (ER) | payer SELFPAY ==
--- OUTSIDE RECORDS SUMMARY | 2022-07-14 21:58 | XMS REPORT | Continuity of Care Document ---
:1990 Author Organization [facility] t Address [address] [place] [address] [place] [id number] Care Team Providers Name Role Phone ANEL METZ Primary Care Physician Unavailable GHISLAINE SAMUEL Attending Clinician Unavailable Provider, Wang Duttap Attending Clinician Unavailable Ghislaine Samuel PA-C Attending Clinician Doctor Unassigned, [place] Attending Clinician Unavailable DAKOTA VALENZUELA Attending Clinician Unavailable TERRANCE ALICEA Attending Clinician Unavailable Terrance Alicea DDS Attending Clinician Joao Babcock DO Attending Clinician Anel Cisneros Attending Clinician [phone] ANEL METZ Attending Clinician Unavailable TERRANCE ALICEA Admitting Clinician Unavailable Terrance Alicea DDS Admitting Clinician Payers Payer Name Policy Type Policy Number Effective Date Expiration Date S [facility] [id number] 2018 00:00:00 Problems Condition Condition Condition Status [...] ity of 25.0-29.9) 25.0-29.9[place] [facility] Nexplanon Nexplanon Disease Active 2021-[address] in place 1-05 ity of 00:00: [place] [facility] Submandibu Submandibu Disease Active 2020-02 U nivers lar lar 1-07 ity of abscess abscess 00:00: [place] [address] [facility] Cervical Cervical Disease Active Overview: Un nancy [...] glucose 2-13 ity of 00:00: [place] [address] [facility] Abnormal Abnormal Disease Active Unive rs maternal maternal 2-12 ity of glucose glucose 00:00: [place] tolerance, tolerance, 00 Me dical antepartum antepartum Br anch History of History of Disease Active U nivers gestationa gestationa 2-11 it y of l diabetes l diabetes 00:00[place] [facility] History of History of Disease Active U nivers pre-eclamp pre-eclamp 2-11 it y of blanca in blanca in 00:00: [place] prior prior 00 Medical , , Br anch currently currently Multiparit Multiparit Disease Active U nivers y y 2-11 ity of 00:00: [place] 00 Medical Branch Diet Diet Disease Active Overview: [facility] controlled controlled 4-10 A2GDM- it y of gestationa gestationa 00:00: glybnurid [facility] diabetes l diabetes 00 e 2.5 mg Medical mellitus mellitus Q am and Bran ch (GDM) in (GDM) in 5 mg Q pm second second trimester trimester High risk High risk Disease Active 2014-02 Uni vers , , 1-15 [place] y of ante[place] [address] [place] [address] Allergies, Adverse Reactions, Alerts Allergy Allergy Status Severity Reaction(s) Onset Inactive Treating Comm ents Source Name Type Date Date Clinician No Known DA Active U [facility] 00:00: [address] NO KNOWN Drug Active [facility] ALLERGIE Class ity of S [facility] Social History Social Habit Start Date Stop Date Quantity Comments Source Exposure to 2021-12-12 2021-12-22 Not sure [facility]-CoV-2 00:00:00 12:38:00 [facility] (event) [place] Tobacco use and 2021-12-22 2021-12-22 Smokeless tobacco Un iversity of exposure 00:00:00 00:00:00 non-user [facility] Alcohol intake 2021-12-22 2021-12-22 0 /d [facility] 00:00:00 00:00:00 [facility] Tobacco Comment 2021-12-22 2021-12-22 smokes 3 Universit y of 00:00:00 00:00:00 cigarettes per [facility] day. pt states she Branch stopped smoking since she found out about . History of 2014-12-22 Cigarette Smoker Universi ty of tobacco use 00:00:00 [facility] Sex Assigned At [birth year] Universit y of 00:00:00 00:00:00 [facility] Smoking Status Start Date Stop Date Source Smokes tobacco daily 2021-12-22 00:00:00 [facility] ity of [facility] Medications Ordered Filled Start Stop Current Ordering Indication Dosage Frequency Signature Comments Components Source Medication Medication Date Date Medication? Clinician (SIG) Name Name etonogestre 2021-02- No [id number] 68mg Univers L 02-21 ity of (NEXPLANON) 19:15: 18:35 [place] implant 68 00 :00 Medical Branch etonogestre 2021-02- No [id number] 68mg 68 mg, Univers L 02-21 Subdermal, ity of (NEXPLANON) 19:15: 18:35 ONCE NOW, [place] implant 68 00 :00 1 dose, On Med ical mg Sat [place] 12/22/21 at 1415, Routine
Use approved by: HOT METAL MIXER OPERATOR etonogestre 2021-02- No [id number] 68mg Univers L 02-21 ity of (NEXPLANON) 19:15: 18:35 [place] implant 68 00 :00 Medical mg Branch etonogestre 2021-02- No [id number] 68mg 68 mg, Univers L 02-21 Subdermal, ity of (NEXPLANON) 19:15: 18:35 ONCE NOW, [place] implant 68 00 :00 1 dose, On Med ical mg Sat [place] 12/22/21 at 1415, Routine
Use approved by: HOT METAL MIXER OPERATOR insulin 2021-02 Yes inject Univers degludec -05 under the ity of (TRESIBA 12:59: skin. [place] U-100 59 Medical INSULIN SC) Branch insulin 2021-02 Yes inject Univers degludec 1-05 under the ity of (TRESIBA 12:59: skin. [place] U-100 59 Medical INSULIN SC) Branch dapaglifloz [...] oral route for 30 days. cephALEXin 2021-02- No [id number] 500mg Take 1 Univers (KEFLEX) 02-21 capsule by ity of 500 mg 00:00: 05:59 mouth 4 [place] capsule 00 :00 (four) Medical times [place] daily for 7 days. cephALEXin 2021-02- No [id number] 500mg Take 1 Univers (KEFLEX) 02-21 capsule by ity of 500 mg 00:00: 05:59 mouth 4 [place] capsule 00 :00 (four) Medical times [place] daily for 7 days. ARIPiprazol Yes TAKE ONE Un nancy e 2 mg 9-01 (1) ity of tablet 00:00: TABLET(S) 00 BY MOUTH Medical IN THE [place] MORNING. ARIPiprazol Yes TAKE ONE Un nancy e 2 mg 9-01 (1) ity of tablet 00:00: TABLET(S) 00 BY MOUTH Medical IN THE [place] MORNING. dapaglifloz 2020-02 Yes Xigduo XR U [...] 00 First dose Medical (HumaLOG) + on [facility]sbg 12/24/20 at Testing 0800, Until Discontinu ed, Routine lactated 2020-02 Yes 1000mL at 50 Univer s ringers IV 1-07 mL/hr, ity of infusion 07:30: 1,000 mL, [place] 1,000 mL 00 IV Medical Infusion, Branch CONTINUOUS , Starting on [place] 12/24/20 at 0130, Until Discontinu ed, Routine naloxone 2020-02 Yes .1mg 0.1 mg, Univer s (NARCAN) 1-07 Slow IV ity of injection 07:21: Push, PRN Negro as 0.1 mg 11 - SEE Medical INSTRUCTIO [place] NS, Starting on [place] 12/24/20 at 0121, Until Discontinu ed, Routine, Sedation/R espiratory Depression , See admin instructio ns. morpHINE 2020-02- No 2mg 2 mg, Slow Un nancy injection 2 07 11-09 IV Push, ity of mg 07:21: 07:20 Q3HPRN, [place] 11 :11 Starting Medical on [facility] 12/24/20 at 0121, Until 12/26/20 at 0120, Routine, Pain (scale 7-10) HYDROcodone 2020-02 Yes 1{tbl} 1 tablet, Univers -acetaminop 1-07 Oral, ity of hen (NORCO 07:21: Q6HPRN, [place] 5) 5-325 mg 10 Starting Medi aleksey tablet 1 on [facility] tablet 12/24/20 at 0121, Until Discontinu ed, Routine, Pain (scale 4-6) ibuprofen 2020-02 Yes 600mg 600 mg, Univ ers (ADVIL 1-07 Oral, ity of CHILDREN'S) 07:21: Q6HPRN, Negro as 100 mg/5 mL 04 Starting Medi aleksey oral on [facility] suspension 12/24/20 at 600 mg 0121, Until Discontinu ed, Routine, Pain (scale 1-3) ondansetron 2020-02 Yes 4mg 4 mg, Slow Univers (ZOFRAN 1-07 IV Push, ity of (PF)) 07:20: Q4HPRN, [place] injection 4 54 Starting Medi aleksey mg on [place] Branch 12/24/20 at 0120, Until Discontinu ed, Routine, Nausea and Vomiting (N/V) chlorhexidi 2020-02 Yes [id number] 15mL Swish and Univers ne 0.12 % 1-07 spit out ity of mouthwash 00:00: 15 mL 2 [place] 00 (two) Medical times Branch daily. ibuprofen 2020-02 Yes [id number] 600mg Take 30 mL Univers 100 mg/5 mL 1-07 by mouth ity of oral 00:00: every 6 [place] suspension 00 (six) Medical hours as Branch needed for Pain (scale 1-3). chlorhexidi 2020-02 Yes [id number] 15mL Swish and Univers ne 0.12 % 1-07 spit out ity of mouthwash 00:00: 15 mL 2 [place] 00 (two) Medical times Branch daily. ibuprofen 2020-02 Yes [id number] 600mg Take 30 mL Univers 100 mg/5 mL 1-07 by mouth ity of oral 00:00: every 6 [place] suspension 00 (six) Medical hours as Branch needed for Pain (scale 1-3). chlorhexidi 2020-02 Yes [id number] 15mL Swish and Univers ne 0.12 % 1-07 spit out ity of mouthwash 00:00: 15 mL 2 [place] 00 (two) Medical times Branch daily. ibuprofen 2020-02 Yes [id number] 600mg Take 30 mL Univers 100 mg/5 mL 1-07 by mouth ity of oral 00:00: every 6 [place] suspension 00 (six) Medical hours as Branch needed for Pain (scale 1-3). chlorhexidi 2020-02 No [id number] 15mL Swish and Univers ne 0.12 % 02-2305 spit out ity o f mouthwash 00:00: 00:00 15 mL 2 [place] 00 :00 (two) Medical times Branch daily. ibuprofen 2020-02 No [id number] 600mg Take 30 mL Univers 100 mg/5 mL -07 11-05 by mouth ity of oral 00:00: 00:00 every 6 [place] suspension 00 :00 (six) Medical hours as Branch needed for Pain (scale 1-3). chlorhexidi 2020-02- No [id number] 15mL Swish and Univers ne 0.12 % 02-23 spit out ity o f mouthwash 00:00: 00:00 15 mL 2 [place] 00 :00 (two) Medical times Branch daily. ibuprofen 2020-02- No [id number] 600mg Take 30 mL Univers 100 mg/5 [...] Indication s: acute pain amoxicillin 2020-02- No [id number] 1{tbl} Take 1 Univers -clavulanat 02-23 tablet by it y of e 00:00: 05:59 mouth 2 [place] (AUGMENTIN) 00 :00 (two) Medical 875-125 mg times Branch per tablet daily for 7 days. Blood-Gluco Yes [id number] Use as Univers se Meter 2-18 directed ity of (FREESTYLE 00:00: [place] LITE METER) 00 Medical Kit Branch blood sugar Yes [id number] Use as Univers diagnostic 2-18 directed ity o f (FREESTYLE 00:00: [place] LITE 00 Medical STRIPS) Branch strip lancets Yes [id number] Use as U nivers gauge Misc 2-18 directed ity o f 00:00: [place] 00 Medical Branch Blood-Gluco Yes [id number] Use as Univers se Meter 2-18 directed ity of (FREESTYLE 00:00: [place] LITE METER) 00 Medical Kit Branch blood sugar Yes [id number] Use as Univers diagnostic 2-18 directed ity o f (FREESTYLE 00:00: [place] LITE 00 Medical STRIPS) Branch strip lancets 17 Yes [id number] Use as U nivers gauge Misc 2-18 directed ity o f 00:00: [place] 00 Medical Branch Blood-Gluco Yes [id number] Use as Univers se Meter 2-18 directed ity of (FREESTYLE 00:00: [place] LITE METER) 00 Medical Kit Branch lancets 17 2018-0 Yes [id number] Use as U nivers gauge Misc 2-18 directed ity o f 00:00: [place] 00 Medical Branch Blood-Gluco 2019-0 Yes [id number] Use as Univers se Meter 2-18 directed ity of (FREESTYLE 00:00: [place] LITE METER) 00 Medical Kit Branch lancets 17 0 Yes [id number] Use as U nivers gauge Misc 2-18 directed ity o f 00:00: [place] 00 Medical Branch Blood-Gluco 2018-0 Yes [id number] Use as Univers se Meter 2-18 directed ity of (FREESTYLE 00:00: [place] LITE METER) 00 Medical Kit Branch blood sugar Yes [id number] Use as Univers diagnostic 2-18 directed ity o f (FREESTYLE 00:00: [place] LITE 00 Medical STRIPS) Branch strip lancets 17 0 Yes [id number] Use as U nivers gauge Misc 2-18 directed ity o f 00:00: [place] 00 Medical Branch Blood-Gluco Yes [id number] Use as Univers se Meter 2-18 directed ity of (FREESTYLE 00:00: [place] LITE METER) 00 Medical Kit Branch blood sugar Yes [id number] Use as Univers diagnostic 2-18 directed ity o f (FREESTYLE 00:00: [place] LITE 00 Medical STRIPS) Branch strip lancets 17 2018-0 Yes [id number] Use as U nivers gauge Misc 2-18 directed ity o f 00:00: [place] 00 Medical Branch Blood-Gluco 2018-0 Yes [id number] Use as Univers se Meter 2-18 directed ity of (FREESTYLE 00:00: [place] LITE METER) 00 Medical Kit Branch blood sugar 2019-0 Yes [id number] Use as Univers diagnostic 2-18 directed ity o f (FREESTYLE 00:00: [place] LITE 00 Medical STRIPS) Branch strip lancets 17 2018-0 Yes [id number] Use as U nivers gauge Misc 2-18 directed ity o f 00:00: [place] 00 Medical Branch Blood-Gluco 2019-0 Yes [id number] Use as Univers se Meter 2-18 directed ity of (FREESTYLE 00:00: [place] LITE METER) 00 Medical Kit Branch blood sugar Yes [id number] Use as Univers diagnostic 2-18 directed ity o f (FREESTYLE 00:00: [place] LITE 00 Medical STRIPS) Branch strip lancets 17 Yes [id number] Use as U nivers gauge Misc 2-18 directed ity o f 00:00: [place] 00 Medical Branch Blood-Gluco Yes [id number] Use as Univers se Meter 2-18 directed ity of (FREESTYLE 00:00: [place] LITE METER) 00 Medical Kit Branch blood sugar Yes [id number] Use as Univers diagnostic 2-18 directed ity o f (FREESTYLE 00:00: [place] LITE 00 Medical STRIPS) Branch strip lancets 17 Yes [id number] Use as U nivers gauge Misc 2-18 directed ity o f 00:00: [place] 00 Medical Branch blood sugar 2021- No [id number] Use as Univers diagnostic 2-18 12-22 directed ity of (FREESTYLE 00:00: 00:00 [place] LITE 00 :00 Medical STRIPS) Branch strip blood sugar 2021- No [id number] Use as Univers diagnostic 2-18 12-22 directed ity of (FREESTYLE 00:00: 00:00 [place] LITE 00 :00 Medical STRIPS) Branch strip Yes [id number] 1{packe Take 1 Univers vit 2-12 t} Packet by ity of 33-iron-fol 00:00: mouth [place] ic-dha 00 daily. Medical (SELECT-OB Branch + DHA) 29 mg iron-1 mg -250 mg combo pack Yes [id number] 1{packe Take 1 Univers vit 2-12 t} Packet by ity of 33-iron-fol 00:00: mouth [place] ic-dha 00 daily. Medical (SELECT-OB Branch + DHA) 29 mg iron-1 mg -250 mg combo pack Yes [id number] 1{packe Take 1 Univers vit 2-12 t} Packet by ity of 33-iron-fol 00:00: mouth [place] ic-dha 00 daily. Medical (SELECT-OB Branch + DHA) 29 mg iron-1 mg -250 mg combo pack Yes [id number] 1{packe Take 1 Univers vit 2-12 t} Packet by ity of 33-iron-fol 00:00: mouth [place] ic-dha 00 daily. Medical (SELECT-OB Branch + DHA) 29 mg iron-1 mg -250 mg combo pack Yes [id number] 1{packe Take 1 Univers vit 2-12 t} Packet by ity of 33-iron-fol 00:00: mouth [place] ic-dha 00 daily. Medical (SELECT-OB Branch + DHA) 29 mg iron-1 mg -250 mg combo pack Yes [id number] 1{packe Take 1 Univers vit 2-12 t} Packet by ity of 33-iron-fol 00:00: mouth [place] ic-dha 00 daily. Medical (SELECT-OB Branch + DHA) 29 mg iron-1 mg -250 mg combo pack Yes [id number] 1{packe Take 1 Univers vit 2-12 t} Packet by ity of 33-iron-fol 00:00: mouth [place] ic-dha 00 daily. Medical (SELECT-OB Branch + DHA) 29 mg iron-1 mg -250 mg combo pack 2021- No [id number] 1{packe Take 1 Univers vit 2-12 11-05 t} Packet by ity of 33-iron-fol 00:00: 00:00 [place] ic-dha 00 :00 daily. Medical (SELECT-OB Branch + DHA) 29 mg iron-1 mg -250 mg combo pack 202- No [id number] 1{packe Take 1 Univers vit 2-12 11-05 t} Packet by ity of 33-iron-fol 00:00: 00:00 [place] ic-dha 00 :00 daily. Medical (SELECT-OB Branch + DHA) 29 mg iron-1 mg -250 mg combo pack Immunizations Ordered Filled Immunization Date Status Comments [facility] Branch e Immunization Name Name HPV9 2021-12-22 Completed University of 00:00:00 [facility] HPV9 2021-12-22 Completed University of 00:00:00 [facility] Influenza Virus 2020-04-28 Completed Universit y of Vaccine [place] .5 mL 00:00:00 [facility] 6+ MO Branch Influenza Virus 2020-04-28 Completed Universit y of Vaccine [place] .5 mL 00:00:00 [place] Medical IM 6+ MO Branch Influenza Virus [...] y of Vaccine [place] .5 mL 00:00:00 [place] Medical 6+ MO Branch HPV9 2016-11-06 Completed University of 00:00:00 [facility] Branch HPV9 2016-11-06 Completed University of 00:00:00 [place] [facility] HPV9 2016-11-06 Completed University of 00:00:00 [place] [facility] HPV9 2016-11-06 Completed University of 00:00:00 [place] [facility] HPV9 2016-11-06 Completed University of 00:00:00 [place] [facility] HPV9 2016-11-06 Completed University of 00:00:00 [place] [facility] HPV9 2016-11-06 Completed University of 00:00:00 [place] [facility] HPV9 2016-11-06 Completed University of 00:00:00 [place] [facility] HPV9 2016-11-06 Completed University of 00:00:00 [place] [facility] HPV9 2016-09-05 Completed University of 00:00:00 [place] [facility] HPV9 2016-09-05 Completed University of 00:00:00 [place] [facility] HPV9 2016-09-05 Completed University of 00:00:00 [place] [facility] HPV9 2016-09-05 Completed University of 00:00:00 [place] [facility] HPV9 2016-09-05 Completed University of 00:00:00 [place] [facility] HPV9 2016-09-05 Completed University of 00:00:00 [place] [facility] HPV9 2016-09-05 Completed University of 00:00:00 [place] [facility] HPV9 2016-09-05 Completed University of 00:00:00 [facility] HPV9 2016-09-05 Completed University of 00:00:00 [place] [facility] TDAP 2015-05-25 Completed University of 00:00:00 [place] [facility] TDAP 2015-05-25 Completed University of 00:00:00 [place] [facility] TDAP 2015-05-25 Completed University of 00:00:00 [place] [facility] TDAP 2015-05-25 Completed University of 00:00:00 [place] [facility] TDAP 2015-05-25 Completed University of 00:00:00 [place] [facility] TDAP 2015-05-25 Completed University of 00:00:00 [place] [facility] TDAP 2015-05-25 Completed University of 00:00:00 [place] [facility] TDAP 2015-05-25 Completed University of 00:00:00 [place] [facility] TDAP 2015-05-25 Completed University of 00:00:00 [facility] Vital Signs Vital Name Observation Time Observation Value Comments Source Systolic blood 2021-12-22 17:38:00 119 mm[Hg] Univer sity of pressure [facility] Diastolic blood 2021-12-22 17:38:00 77 mm[Hg] Unive rsity of pressure [facility] Heart rate 2021-12-22 17:38:00 76 /min Universi ty [facility] Body temperature 2021-12-22 17:38:00 35.83 [place] [facility] rate 2021-12-22 17:38:00 18 /min Univ ersity [facility] Body height 2021-12-22 17:38:00 154.9 cm Universi ty [facility] Body weight 2021-12-22 17:38:00 60.51 kg Universi ty [facility] BMI 2021-12-22 17:38:00 25.21 kg/m2 Universi ty [facility] Systolic blood 2020-12-24 17:05:00 125 mm[Hg] Univer sity of pressure [facility] Diastolic blood 2020-12-24 17:05:00 87 mm[Hg] Unive rsity of pressure [facility] Heart rate 2020-12-24 17:05:00 91 /min Universi ty [facility] Body temperature 2020-12-24 17:05:00 36.22 [place] Univ ersity [facility] Respiratory rate 2020-12-24 17:05:00 18 /min Univ ersity of [facility] Oxygen saturation in 2020-12-24 17:05:00 98 /min University Arterial blood by [facility] Pulse oximetry Branch Body weight 2020-12-24 06:32:00 68.04 kg Universi ty of [place] [facility] BMI 2020-12-24 06:32:00 28.34 kg/m2 Universi ty of [place] [facility] Systolic blood 2020-04-28 16:31:00 106 mm[Hg] Univer sity of pressure [place] [facility] Diastolic blood 2020-04-28 16:31:00 73 mm[Hg] Unive rsity of pressure [place] [facility] Heart rate 2020-04-28 16:31:00 77 /min Universi ty of [place] [facility] Body temperature 2020-04-28 16:31:00 36.72 [place] Univ ersity of [place] [facility] Respiratory rate 2020-04-28 16:31:00 16 /min Univ ersity of [place] [facility] [place] Body height 2020-04-28 16:31:00 154.9 cm Universi ty of [place] [facility] [place] Body weight 2020-04-28 16:31:00 59.081 kg Universi ty of [place] [facility] BMI 2020-04-28 16:31:00 24.61 kg/m2 Universi ty of [place] [facility] Systolic blood 2020-04-28 16:31:00 106 mm[Hg] Univer sity of pressure [place] [facility] Diastolic blood 2020-04-28 16:31:00 73 mm[Hg] Unive rsity of pressure [place] [facility] [place] Heart rate 2020-04-28 16:31:00 77 /min Universi ty of [place] [facility] Body temperature 2020-04-28 16:31:00 36.72 [place] Univ ersity of [place] [facility] Respiratory rate 2020-04-28 16:31:00 16 /min Univ ersity of [place] [facility] Body height 2020-04-28 16:31:00 154.9 cm Universi ty of [place] [facility] Body weight 2020-04-28 16:31:00 59.081 kg Universi ty of [place] [facility] BMI 2020-04-28 16:31:00 24.61 kg/m2 Universi ty of [place] [facility] Procedures Procedure Date / Time Performed Performing Clinician Sour e POCT TEST 2021-12-22 17:49:00 Ghislaine Samuel [facility] GARDASIL 9 (HPV 9V) 2021-12-22 17:48:52 Ghislaine Samuel [facility] VACCINE [facility] ASSIGNMENT OF BENEFITS 2021-12-22 17:24:31 Doctor Unassigned, No General acute hospital EXTERNAL PROVIDER 2021-01-02 06:01:00 Doctor Unassigned, No [facility] POCT GLUCOSE 2020-12-24 14:10:00 Terrance Alicea [place] o f [place] (AUTOMATED) [facility] ASSIGNMENT OF BENEFITS 2020-04-28 17:41:20 Doctor Unassigned, No General acute hospital FLU VACC ([id number]), 2020-04-28 17:21:26 Anel Metz [facility] 6+ MONTHS, IM, QUAD Medical Bran ch Encounters Start End Encounter Admission Attending Care Care Encounter Source Date/Time Date/Time Type Type Clinicians Facility Department ID 2021-12-22 2021-12-22 Outpatient R JIMMIE [facility] [id number] [facility] 12:45:00 13:22:01 GHISLAINE valdez [facility] 2021-12-22 2021-12-22 Office Provider, MagalieRmchp TemRUST [id number] Univers 12:45:00 13:22:01 Visit Ghislaine Samuel HOT METAL MIXER OPERATOR [id number] ity of [facility] [id number] Negro as MATERNAL [phone] Med ical & CHILD [address] [place] [address] 2021-12-22 2021-12-22 Orders Doctor SAMMY [id number] Univers 00:00:00 00:00:00 Only UnassignedGIL [id number] ity of [facility] [id number] Negro as [id number] [address] 2021-01-02 2021-01-02 Orders Doctor SAMMY [id number] Univers 00:00:00 00:00:00 Only UnassignedGIL [id number] ity of [place] [facility] [id number] Negro as [id number] [facility] 009 Branch 2020 2020 Outpatient R DARRELL [facility] [id number] Univers 14:00:00 14:00:00 [facility] 2020-12-26 2020-12-26 Outpatient R DARRELL [facility] [id number] Univers 16:30:00 16:30:00 [facility] 2020-12-24 2020-12-24 Outpatient X DARRELL [facility] HERMILO [id number] Univers 01:34:00 17:25:00 [facility] 2020-12-24 2020-12-24 Emergency DIVINE [place] [id number] Univers 01:34:00 17:25:00 [facility] GIL [id number] it y of [facility] [id number] Negro as [id number] [facility] 091 [place] 2020-05-09 2020-05-09 Patient Sadiq [facility] [id number] Univers 00:00:00 00:00:00 Outreach Joao PRIMARY [id number] i ty of [place] [facility] 4.2.7.2.686 [place] [facility] [id number] [place] dical 388 [place] 2020-05-09 2020-05-09 Patient Sadiq NJYANELIS [id number] 00:00:00 00:00:00 Outreach Joao PRIMARY [id number] [place] C[facility] 4.2.7.2.686 PAVILLION [id number] [facility] 2020-04-28 2020-04-28 Office Isaías [facility] [id number] Univers 10:17:04 11:41:16 Visit Anel Munguia HOT METAL MIXER OPERATOR [id number] ity of [facility] [id number] Negro as MATERNAL [id number] Med ical & CHILD [address] [place] [address] 2020-04-28 2020-04-28 [facility] [id number] 10:17:04 11:41:16 Visit Anel Munguia HOT METAL MIXER OPERATOR [id number] [facility] [id number] MATERNAL [id number] & CHILD [address] [place] [address] 2020-04-28 2020-04-28 [facility] [id number] [facility] 10:15:00 10:15:00 ANEL valdez o f [facility] 2020-04-28 2020-04-28 Orders Doctor SAMMY [id number] Univers 00:00:00 00:00:00 Only Unassigned, GIL [id number] ity of [place] [facility] [id number] Negro as [id number] [address] Results Test Description Test Time Test Comments Results Result Comments Source POCT TEST 2021-12-22 17:50:00 Test Item Value Reference Range Interpretation Comme nts POCT PREG (test code = 1605) Negative On board controls acceptable with C Line (test code = 3574) Yes POCT PREG LOT # (test code = 3575) POCT PREG TEST DATE (test code = 3576) [id number] 17:50:00 Test Item Value Reference Range Interpretation Comments POCT PREG (test code = 1605) Negative On board controls acceptable with C Yes Line (test code = 3574) POCT PREG LOT # (test code = 3575) POCT PREG TEST DATE (test code = 3576) [facility] ([facility]), RT-PCR/[id number] 17:22:59 Test Item Value Reference Interpretation Comments Range SARS-CoV-2 NEGATIVE SEE NOTE SARS-CoV-2 RNA NOT INTERPRETATION DETECTEDNegat zelda (test code = 19276) results do not preclude SARS-C oV-2 infection [...] (test code = [place]OP[place]ARY[place]: [place] [address]) Juliana Leeann Zahira l-Time RT-PCR. The exp [...] provided by met hod given in report:https:// www.[facility].com/clinic ians/cl ient-communicat ions/ Alternatively, see downloadable PD F fact sheet at:https://www. [employer]/COVID-19-R T-PCR UNLESS OTHERWIS E INDICATED, ALL TESTING PERFORMED [facility], [facility]. [address] [place] [address] SHANIA PARIKH DIRECTOR: ERICK NEAL M.D. CLIA NUMBER [id number] CAP ACCREDITATION N O. [id number] POCT GLUCOSE (AUTOMATED)2020-12-24 14:12:21 Test Item Value Reference Range Interpretation Comments POCT GLU (test code = 9814852133) 212 mg/dL 70-110 H Lab Interpretation (test code = Abnormal 59772-6) [facility] 15:58:00 Test Item Value Reference Range Interpretation Comments GLUBED (test code = GLUBED) 148 mg/dL 65-110 H [id number] 10:51:00 Test Item Value Reference Range Interpretation Comments GLUBED (test code = GLUBED) 174 mg/dL 65-110 H [id number] 06:04:00 Test Item Value Reference Range Interpretation Comments GLUBED (test code = GLUBED) 83 mg/dL 65-110 N GLYCOSYLATED HEMOGLOBIN [id number] 04:40:00 Test Item Value Reference Range Interpretation Comments GLYCOSYLATED 8.2 % 4.8-5.9 H Any condition t hat HEMOGLOBIN (HA1C) shortens e rythocyte (test code = survival or dec reasesmean GLYHGB) erythrocyte age (e.g., recovery from a cute blood loss,hemolytic anemia) will falsely lo wer HGBA1c resultsregardle ss of the method used. HG BA1c results from klely velasquez HbSS, HbCC, and HbSc must be interpreted with cautiongiven th e pathological pr ocesses, including anemia,increase d red cell turnover, trans fusion requirements, thatadversely i mpact HGBA1c as a mar ker of long-term glycemiccontrol . Alternative for ms of testing such as fructosaminesho uld be considered for these patients. MEAN BLOOD GLUCOSE 189 MG/DL 70-110 H (test code = MBG) COMPREHENSIVE METABOLIC [id number] 04:40:00 Test Item Value Reference Range Interpretation [...] fructosaminesho uld be considered for these patients. [id number] 00:14:00 Test Item Value Reference Range Interpretation Comments GLUBED (test code = GLUBED) 194 mg/dL 65-110 H COMPREHENSIVE METABOLIC [id number] 21:06:00 Test Item Value Reference Range Interpretation [...] (HA1C) (test code = GLYHGB) CBC W/AUTO [id number] 20:53:00 Test Item Value Reference Range Interpretation [...] (test NORMAL NORMAL code = PLTMR) URINALYSIS [id number] 20:08:00 Test Item Value Reference Range Interpretation [...] #/hpf NONE SEEN A URINE SAMPLE: CLEAN [id number] 20:01:00 Test Item Value Reference Range Interpretation Comments GLUBED (test code = GLUBED) 196 mg/dL 65-110 H URINALYSIS [id number] 19:53:00 Test Item Value Reference Range Interpretation [...] #/HPF RARE-FEW EPIU) URINE SAMPLE: CLEAN CATCH Notes Date/Time Note Provider Source 2018-06-17 17:42:00-00:00 [id number] [facility] [address] [address] PATIENT NAME: AILYN MCCOY ADMIT DATE: 06/09/18 ACCOUNT NO: [id number] ROOM NO: 3026 AGE: 27 SEX: F ADMITTING PHYSICIAN: Richard Bojorquez MD ATTENDING PHYSICIAN: Rihcard Bojorquez MD ADMISSION DATE: 06/09/2018 TRIAGE EVALUATION Admission to [facility] for observation. For evaluation on 06/09/[address] Kathy Corona. The patient was seen i n the MAC unit as no doc patient, then admitted for obs with Dr. Bojorquez accepting the patient's care . HISTORY OF PRESENT ILLNESS: The patient is a 27- year-old G2, P0-1-0-1 with unsure last menstrual period and estimat ed date of confinement 09/16/2018. She presented at 25-6/7 weeks. S he reports she was told to come to the hospital for elevated blood glucose levels. She states that a week ago, she had her 1-hour Glucola, which was elevated, then a 3-hour GTT, which was also abnormal. She has been checking her sugars at home. She was no t previously diagnosed with diabetes except in a prior p regnancy with diet-controlled gestational diabetes. She states testing 6 weeks after that de livery was negative and she had had no symptoms of abnormal blood glucose levels since. She was seeing Dr. Moreno for care and started on Toujeo 5 days ago. She was receiving 5 units daily. She states that after lunch with 3 slices of mckinney and one egg, her sugar was greater than 330. She used her Toujeo. Now on arrival in the [facility], her blood glucose level is 196. She is given 6 u nits of regular insulin per sliding scale. Her care began with Dr. Moreno in April. She has had 5 or 6 visits with multiple visits in the last 2 weeks due to the e levated blood glucose levels. She states she did have a placenta covering the opening of her cervix, but otherwise all ultrasounds were normal. S he states her hemoglobin A1c was 8.8 . She also states she was told she has anemia. Otherwise, the patient reports her labs have been normal. PAST MEDICAL HISTORY: Negative (the patient deborah es prior history of diabetes outside of past ). PAST SURGICAL HISTORY: Laparoscopic appendectomy in 2005 and wisdom teeth in 2010. ALLERGIES: NO KNOWN DRUG ALLERGIES. MEDICATIONS: vitamins and Toujeo. OBSTETRICAL HISTORY: In 2016, a 34-week vaginal delivery following induction for -induced hypert ension. She was delivered of a male infant weighing 6 pounds 7 ounces. In addition to the se conroy [facility], she also had diet-controlled PATIENT NAME: AILYN MCCOY 478 gestational diabetes in that , otherwis e no complications. GYNECOLOGIC HISTORY: Menarche at age 14 with irr egular periods every 2 to 3 months, lasting 6 to 7 days, moderate in amount with minimal cramping. She was diagnosed with gonorrhea in 2008. She and her pa rtner were treated and all testing since have been negative. All Pa p smears normal. She has been using Lo Loestrin control pill. This was an unplann ed . She last used the pill in March. SOCIAL HISTORY: One pack per day tobacco use for 7 years. She is trying to wean off cigarettes now. Occasional pre-pregnanc y and early first trimester alcohol use before learning she was . Th e patient denies history of illicit drugs. She lives with her son. She has n o longer involved with the father of her baby. She has no information on ok s health. She states she drinks 4 to 6 beers per weekend and she states t hat she lost her significant other, when he suddenly she was very sad and she was drinking heavily at a one night stand and which resulted in this pregn mari. She was working at [employer], doing [employer] g and lifting approximately 40-pound weight, but no chemical exposures. She is on leave at this time . She has no information on the health of her parents or grandparents as she was adopted. Her sister is known to be insulin-dependent diabetic, diagnose d at age 23. REVIEW OF SYSTEMS: A 12-point review of systems is negative except as stated above. PHYSICAL EXAMINATION: GENERAL: The patient is a well-nourished, well-d eveloped white female in no acute distress. VITAL SIGNS: Height 5 feet, weight prior to the 120 pounds and at most recent visit to clinic 135 pounds. The scottie ent is lying in the hospital stretcher in MAC unit triage. Temperature 97.7, respirations 18, pulse 74, blood pressure 108/62. NECK: Within normal limits without lymphadenopat hy or thyromegaly. CHEST: Clear to auscultation bilaterally with re gular rate and rhythm. BREASTS: Deferred. ABDOMEN: Soft, nontender, gr avid with a fundal height 4 cm above the umbilicus. PELVIC: Deferred. EXTREMITIES: Without edema. Bilateral patellar r eflexes, 2+. NEUROLOGIC: Nonfocal. The patient is awake, aler t, and oriented x3. LABORATORY DATA: At admissio n, white blood cell 8.6, hemoglobin 9.3, hematocrit 28.4, and platelets 360,000. Sodium 135, potassi um 4.0, chloride 101, bicarbonate 21, BUN 10, creatinine 0.7, and gluc ose 176. ALT and AST slightly low at 10 and 11 respectively, alkaline phosphat ase 78. Hemoglobin A1c 8.2. Urine shows 3+ glucose, otherwise negative with 0 to 2 RBCs, 2 to 5 WBCs, and few epithelial cells. DIAGNOSTIC DATA: NST with ba seline heart tones in the 140s to 150s range. Accelerations consistent with gestational age. O ccasional variable decels, no contractions noted. ASSESSMENT AND PLAN: I spoke to Dr. Jared florentino and he agreed to accept the patient to his service. She is started on insulin slidin g scale. Nutritional consult and health promotion educator will see the patient in th e morning. She will have a social service consult as well. PATIENT NAME: AILYN MCCOY 78 The patient is a 27-year-old G2, P0-1-0-1 at 25- 6/7th weeks with recently diagnosed diabetes in the second trimester, now poorly controlled. Admit to Dr Bojorquez as above. The patient is also a smoker and has a very poor social situation. The patient is also strongly encouraged to quit smoking altogether. 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 Dictated By: Kathy Corona MD WT: HP:JERRY/BIANCAI/NTS Conf#: [id number]/DID#: [id number] Authenticated and Edited by Kathy Corona MD On 07/08/18 8:40:30 AM Electronically Signed by Kathy Corona MD on at 0843 PATIENT NAME: AILYN MCCOY 78 2018-06-10 14:02:00-00:00 [facility] ([facility]) OB Disch Undelivered REPORT#:[id number] REPORT STATUS: Signed DATE:06/10/18 TIME: 1402 PATIENT: AILYN MCCOY UNIT #: [id number] ROOM/BED: [address] : 90 AGE: 27 SEX: F ATTEND: Richard Bojorquez MD ADM AUTHOR: Richard Bojorquez MD * ALL edits or amendments must be made on the [employer]/computer document * Subjective Subjective Patient reports: Patient reports: No: complaints. Comments: PLZ SEE NOTE EARLIER, I SAW HER EARLIER Objective General VS: Last Documented: Result Date Time B/P Mean 73.0 06/10 0905 B/P 101/58 06/10 09 Temp 97.6 06/10 09 Pulse 77 06/10 0905 Resp 18 06/10 09 Vital Signs Date Temp Pulse Resp B/P B/P Mean Pulse Ox FiO2 06/09-06/10 97.6-98.3 77-94 18 101-112/58-69 73 .0-85.0 Physical Exam FHR evaluation: Baby A baseline: 140 bpm Baby A variability: moderate 6-25 bpm Baby A accelerations: 10 X 10 Baby A FHR category: category 1 HEENT: normocephalic w/o injury Lungs: clear to auscultation Neuro: Exam: alert, oriented x3, normal speech Abdomen: gravid, soft, no abnormal tenderness Discharge Undelivered Discharge Undelivered Assessment: Patient is a 27 year old at 25.6 WEEKS g estation admitted for uncontrolled GDM Plan: d/c home on insulin Hospital course: she was admitted and started on weight based ins ulin , sugars went down Consultation(s) performed: Consultation performed: NUTRITION/DIABETES EDUC ATION Electronically Signed by Richard Bojorquez MD on 06/10 at 1404 RPT #:[id number] END OF REPORT 2018-06-10 14:02:00-00:00 [facility] ([facility]) OB Disch Undelivered REPORT#:[id number] REPORT STATUS: Signed DATE:06/10/18 TIME: 1402 PATIENT: AILYN MCCOY UNIT #: [id number] ROOM/BED: [address] : 90 AGE: 27 SEX: F ATTEND: Richard oBjorquez MD ADM AUTHOR: Richard Bojorquez MD * ALL edits or amendments must be made on the [employer]/computer document * See Addendum Subjective Subjective Patient reports: Patient reports: No: complaints. Comments: PLZ SEE NOTE EARLIER, I SAW HER EARLIER Objective General VS: Last Documented: Result Date Time B/P Mean 73.0 06/10 0905 B/P 101/58 06/10 0905 Temp 97.6 06/10 0905 Pulse 77 06/10 0905 Resp 18 06/10 0905 Vital Signs Date Temp Pulse Resp B/P B/P Mean Pulse Ox FiO2 06/09-06/10 97.6-98.3 77-94 18 101-112/58-69 73 .0-85.0 Physical Exam FHR evaluation: Baby A baseline: 140 bpm Baby A variability: moderate 6-25 bpm Baby A accelerations: 10 X 10 Baby A FHR category: category 1 HEENT: normocephalic w/o injury Lungs: clear to auscultation Neuro: Exam: alert, oriented x3, normal speech Abdomen: gravid, soft, no abnormal tenderness Discharge Undelivered Discharge Undelivered Assessment: Patient is a 27 year old at 25.6 WEEKS g estation admitted for uncontrolled GDM Plan: d/c home on insulin Hospital course: she was admitted and started on weight based ins ulin , sugars went down Consultation(s) performed: Consultation performed: NUTRITION/DIABETES EDUC ATION Electronically Signed by Richard Bojorquez MD on 06/10 at 1404 Addendum 1: 06/10/18 1412 by Richard Bojorquez MD she will email me her sugar log in a week and we ekly Electronically Signed by Richard Bojorquez MD on 06/10 at 1412 RPT #:[id number] END OF REPORT 2018-06-10 13:15:00-00:00 [facility] ([facility]) OB Admission / H P REPORT#:[id number] REPORT STATUS: Signed DATE:06/10/18 TIME: 1315 PATIENT: AILYN MCCOY UNIT #: [id number] ROOM/BED: 3026-A : 90 AGE: 27 SEX: F ATTEND: Richard Bojorquez MD ADM AUTHOR: Richard Bojorquez MD * ALL edits or amendments must be made on the [employer]/computer document * OB Admission H P Hx Chief complaint: I AM HPI: 27 Y OLD at 25 6/7 weeks a p atient of Dr Moreno, was adnitted due to high sugars, up to 300-500 at home, no complaints when i saw her today around 7am Past medical history: gestational DM Past surgical history: denies PSH Social history: no alcohol use Medications: Current Hospital Medications: Central Nervous System Agents Sig/Eddi Start time Last Medication Dose Route Stop Time Status Admin Acetaminophen 650 MG Q4H PRN PRN 06/10 0300 AC (ACETAMINOPHEN 325 PO 08/09 0259 MG TAB) Zolpidem Tartrate 5 MG BEDTIME PRN PRN 06/10 03 00 AC (AMBIEN 5 MG UDTAB) PO 07/10 0259 Electrolytic, Caloric, And Charles Sig/Eddi Start time Last Medication Dose Route Stop Time Status Admin Lactated Ringer's 1,000 ML ASDIR 06/09 2100 AC (LACTATED RINGERS) IV 08/08 2058 Gastrointestinal Drugs Sig/Eddi Start time Last Medication Dose Route Stop Time Status Admin Docusate Sodium 100 MG 0900,2100 06/10 0900 AC (DOCUSATE SODIUM 100 PO 08/09 0859 MG CAP) Al Hydrox/Mg Hydrox/ 30 ML Q4H PRN PRN 06/10 03 00 AC Simethicone PO 08/09 0259 (MYLANTA 30 ML SUSP) Magnesium Hydroxide 30 ML Q6H PRN PRN 06/10 030 0 AC (MILK OF MAGNESIA 30 PO 08/09 0259 ML UD) Ondansetron HCl 4 MG Q4H PRN PRN 06/10 0300 AC 06/10 (ZOFRAN 4 MG UD TAB) PO 08/09 0259 0913 Polyethylene Glycol 17 GM DAILY PRN PRN 06/10 0 300 AC (POLYETHYLENE GLYCOL PO 08/09 0259 PKT) Hormones And Synthetic Substit Sig/Eddi Start time Last Medication Dose Route Stop Time Status Admin Insulin Human Lispro 16 UNITS AC DIN 06/10 1630 AC (HumaLOG 3ML VIAL) SUBQ 08/09 1629 Insulin Human Lispro 12 UNITS BK 06/10 0730 AC (HumaLOG 3ML VIAL) SUBQ 08/09 0729 Insulin Human NPH 20 UNIT BK 06/10 0730 AC (HumuLIN N 3 ML) SUBQ 08/09 0729 Insulin Human NPH 16 UNIT BEDTIME 06/09 2230 AC 06/09 (HumuLIN N 3 ML) SUBQ 08/08 2229 2339 Glucagon 1 MG ASDIR PRN 06/09 2014 AC (GLUCAGON 1 MG/VIAL) IM 08/08 2013 Insulin Human Regular See Dose ASDIR PRN 06/09 2014 AC 06/10 (HumuLIN R 3 ml Vial) Insts (1) SUBQ 08/08 2013 1033 Serums, Toxoids, And Vaccines Sig/Eddi Start time Last Medication Dose Route Stop Time Status Admin Diphtheria/Pertussis/ 0.5 ML ONCE ONE 06/09 210 0 DC Tetanus Vacc IM 06/09 2100 (ADACEL VACCINE) Influenza Virus 60 MCG ONCE ONE 06/09 2100 DC 0 06/09 Vaccine IM 06/09 2100 2338 (FLUZONE QUAD 2018- 2018 SYRINGE) Vitamins Sig/Eddi Start time Last Medication Dose Route Stop Time Status Admin Multivi/Iron Carb/Fe 1 EA DAILY 06/10 0900 AC Sulf/FA/Prenat PO 08/09 0859 ( VITAMINS) Dose Instructions: (1)Insulin Human Regular (HumuLIN R 3 ml Vial): SEE SLIDING SCALE (Admin Criteria) Allergies Coded Allergies: No Known Allergies (06/09/18) Review of Systems Constitutional: Denies: chills. Skin: Denies: abrasion. Allergy/Immun: Denies: allergic reaction. Eyes: Denies: redness. ENT: Denies: ear drainage. Respiratory: Denies: PUENTE (dyspnea on exertion). Cardiovascular: Denies: chest pain. GI: Denies: abdominal pain. : Denies: dysuria. Musculoskeletal: Denies: arthritis. Objective General VS: Last Documented: Result Date Time B/P Mean 73.0 06/10 0905 B/P 101/58 06/10 0905 Temp 97.6 06/10 0905 Pulse 77 06/10 0905 Resp 18 06/10 0905 Vital Signs Date Temp Pulse Resp B/P B/P Mean Pulse Ox FiO2 06/09-06/10 97.6-98.3 77-94 18 101-112/58-69 73 .0-85.0 Physical Exam HEENT: normocephalic w/o injury Cardiac: regular rate and rhythm Lungs: clear to auscultation Breasts: deferred Neuro: Exam: alert, oriented x3, normal speech Abdomen: gravid, soft, no abnormal tenderness Baby A: Baby A baseline: 140 bpm Baby A variability: moderate 6-25 bpm Baby A accelerations: 10 X 10 Baby A FHR category: category 1 Diagnosis, Assessment Plan Diagnosis, Assessment Plan Assessment/Impression: IUP 25 6/7 WEEKS, GDM [facility] ONTROLLED Plan: admit to observation, INSULIN WAS STARTED Consultation(s): Consultation performed: NUTRITION/DIABETES EDUC ATION Electronically Signed by Richard Bojorquez MD on 06/10 at 1324 RPT #:[id number] END OF REPORT
[2022-07-14] MEDS ORDERED: ONDANSETRON 4 MG/2 ML VIAL ONE (22:21)
[2022-07-14] MEDS ORDERED: NA CHLORIDE 0.9% 1,000 ML ONE (22:21)
[2022-07-14] MEDS ORDERED: FAMOTIDINE 20 MG/2 ML VIAL IV ONE (22:21)
[2022-07-14 22:24] LABS: Absolute Lymphocytes (CBC) 3.1 K/uL (0.7-4.9); Hematocrit 37.5 % (36.0-45.0); Lymphocytes % 33.5 % (15.3-44.8); MCV 80.1 fL (80-100); RBC Red Blood Cell Count 4.68 M/uL (3.86-4.86)
[2022-07-14 22:45] LABS: Albumin 3.5 g/dL (3.4-5.0); Bilirubin Total 0.2 mg/dL (0.2-1.0); Potassium 4.1 mEq/L (3.5-5.1); Protein, Total 7.4 g/dL (6.4-8.2)
[2022-07-14] MEDS ORDERED: LORazepam 2 MG/ML VIAL ONE (22:51)
[2022-07-14 23:42] LABS: Barbiturates NEGATIVE (NEGATIVE); Benzodiazepines NEGATIVE (NEGATIVE); Cocaine NEGATIVE (NEGATIVE); METHAMPHETAM NEGATIVE (NEGATIVE); Methadone NEGATIVE (NEGATIVE); Opiates NEGATIVE (NEGATIVE); Phencyclidine NEGATIVE (NEGATIVE); Specific Gravity 1.022 (1.005-1.030); THC Cannibis NEGATIVE (NEGATIVE)
[2022-07-14] MEDS ORDERED: INSULIN -REGULAR HUMAN 50 UNIT/0.5 ML ML ONE (23:43)
[2022-07-14 23:50] LABS: Specific Gravity 1.022 (1.005-1.030); Urine Bacteria <20 /HPF (<20); Urine Bilirubin NEGATIVE (Negative); Urine Blood Negative (Negative); Urine Clarity Turbid (Clear); Urine Color Colorless (Yellow); Urine Glucose 4+ (Over) (Negative); Urine Mucus Slight /HPF (None Seen); Urine Protein TRACE (Negative); Urine Urobilinogen Normal (Normal); Urine WBC Clump Rare /HPF (None Seen)
[2022-07-15] MEDS ORDERED: CEFTRIAXONE 1000 MG/VIAL ONE (01:50)
[2022-07-15] MEDS ORDERED: NA CHLORIDE 0.9% 1,000 ML ONE (01:51)
[2022-07-15] MEDS ORDERED: INSULIN -REGULAR HUMAN 50 UNIT/0.5 ML ML ONE (01:51)
--- NOTE | 2022-07-15 02:19 | ER ---
Nurse's Notes [facility] Name: Harriett Gillette Age: 31 yrs Sex: Female : 1990 Arrival Date: 07/14/2022 Time: 21:55 Bed 6 Private MD: Diagnosis: Alcohol use, unspecified;Diabetes mellitus due to underlying condition with hyperglycemia;UTI/ Urinary tract infection, site not specified Presentation: 07/14 22:00 Chief complaint: EMS states: toned out for hyperglycemia episode,, on scene pt on the aa9 floor, denies LOC BS 397, denies N/V, pt states she has been drinking tonight. Coronavirus screen: Vaccine status: Patient reports receiving the 2nd dose of the covid vaccine. Ebola Screen: No symptoms or risks identified at this time. Initial Sepsis Screen: Does the patient meet any 2 criteria? No. Patient's initial sepsis screen is negative. Does the patient have a suspected source of infection? No. Patient's initial sepsis screen is negative. Risk Assessment: Do you want to hurt yourself or someone else? Patient reports no desire to harm self or others. Onset of symptoms was July 14, 2022. Care prior to arrival: Medication(s) given: Normal saline infusion, 500 mL, IV initiated. 20 GA, in the right antecubital area, Glucose check: 397. 22:00 Method Of Arrival: EMS: [facility] aa9 22:00 Acuity: TIFFANIE 3 aa9 Triage Assessment: 22:03 General: Appears uncomfortable, unkempt, Behavior is cooperative, anxious. Neuro: Level aa9 of Consciousness is awake, alert, obeys commands, Oriented to person, place, time, situation. Cardiovascular: Patient's skin is warm and dry. Respiratory: Airway is patent Respiratory effort is even, unlabored. GI: No signs and/or symptoms were reported involving the gastrointestinal system. : No signs and/or symptoms were reported regarding the genitourinary system. Derm: Skin is intact, is healthy with good turgor. Historical: - Allergies: 22:04 Codeine; aa9 22:04 Hydrocodone-Acetaminophen; aa9 - Home Meds: 22:04 Metformin Oral [Active]; aa9 - PMHx: 22:04 Diabetes - IDDM; GESTATIONAL DM; heart valve dysfunction; Pre-eclampsia; aa9 - PSHx: 22:04 Appendectomy; aa9 - Immunization history:: Client reports receiving the 2nd dose of the Covid vaccine. - Social history:: Smoking status: Patient reports the use of cigarette tobacco products, smokes one pack cigarettes per day. Screenin:31 [facility] ED Fall Risk Assessment (Adult) Score/Fall Risk Level 0 - 2 = Low Risk. Abuse as6 screen: Denies threats or abuse. Denies injuries from another. Nutritional screening: No deficits noted. Tuberculosis screening: No symptoms or risk factors identified. Assessment: 22:31 General: Smells of alcohol, pt reports drinking tonight . as6 23:07 Reassessment: Patient appears in no apparent distress at this time. pt ambulated to [facility] restroom independently. 07/15 01:54 GI: Pt is actively vomiting undigested food. aa9 02:25 Reassessment: Patient appears in no apparent distress at this time. Patient and/or 9 family updated on plan of care and expected duration. Pain level reassessed. Patient is alert, oriented x 3, equal unlabored respirations, skin warm/dry/pink. Patient states feeling better. Vital Signs: 07/14 22:00 BP 120 / 95; Pulse 98; Resp 17; Pulse Ox 100% ; aa9 22:05 Weight 63.5 kg; Height 5 ft. 0 in. (R); aa9 22:30 BP 134 / 87; Pulse 97; Resp 20 S; Pulse Ox 100% ; as6 23:39 BP 101 / 68; Pulse 95; Resp 18 S; Pulse Ox 100% on R/A; as6 07/15 02:25 BP 100 / 72; Pulse 85; Resp 18; Temp 98.6; Pulse Ox 100% on R/A; aa9 07/14 22:05 Body Mass Index 27.34 (63.50 kg, 152.4 cm) aa9 ED Course: 07/14 21:58 Patient arrived in ED. ds4 21:59 Jalil Stockton PA is PHCP. cp 21:59 Mc Rosenberg MD is Attending Physician. cp 22:00 Tammy Zhang, AHSAN is Primary Nurse. aa9 22:03 Triage completed. aa9 22:05 Arm band placed on. aa9 22:05 Patient has correct armband on for positive identification. Bed in low position. Call aa light in reach. Side rails up X 1. Pulse ox on. NIBP on. 23:16 UDS Sent. 23:16 Test, Urine Sent. 23:16 Urinalysis w/ reflexes Sent. 07/15 00:32 Urine Culture Sent. 02:24 No provider procedures requiring assistance completed. IV discontinued, intact, aa9 bleeding controlled, No redness/swelling at site. Pressure dressing applied. Administered Medications: 07/14 22:21 Drug: NS 0.9% IV 1000 ml Route: IV; Rate: 1 bolus; Site: left antecubital; as6 22:21 Drug: Famotidine IVP 20 mg Route: IVP; Site: left antecubital; 22:21 Drug: Ondansetron IVP 4 mg Route: IVP; Site: left antecubital; as6 22:47 Drug: Ativan IVP 0.5 mg Route: IVP; Site: left antecubital; as 23:40 Drug: Insulin Regular Human IVP 10 units {Co-Signature: aa9 (Tammy Zhang RN).} Route: as6 IVP; Site: left antecubital; 07/15 01:53 Drug: Rocephin IV 1 grams Route: IV; Rate: calculated rate; Site: left antecubital; 02:26 Follow up: Response: No adverse reaction; IV Status: Completed infusion; IV Intake: 26caoq3 01:53 Drug: Insulin Regular Human IVP 10 units {Co-Signature: as6 (Edwar Rashid RN).} aa9 Route: IVP; Site: left antecubital; 02:26 Follow up: Response: No adverse reaction; Blood sugar is lowered aa9 01:54 Drug: NS 0.9% IV 1000 ml Route: IV; Rate: 1 bolus; Site: left antecubital; aa9 02:25 Follow up: Response: No adverse reaction; IV Status: Completed infusion; IV Intake: aa9 700ml Medication: 02:25 VIS not applicable for this client. aa9 Point of Care Testing: Blood Glucose: 07/14 22:21 Blood Glucose: 475 mg/dL; as6 23:30 Blood Glucose: 380 mg/dL; as6 Ranges: Intake: 05/29 02:25 IV: 700ml; Total: 700ml. aa9 02:26 IV: 10ml; Total: 710ml. aa9 Outcome: 02:19 Discharge ordered by MD. cp 02:24 Discharged to home ambulatory, with family. aa9 02:24 Condition: stable 02:24 Discharge instructions given to patient, Instructed on discharge instructions, follow up and referral plans. medication usage, Demonstrated understanding of instructions, follow-up care, medications, Prescriptions given X 1. 02:26 Patient left the ED. aa9 Signatures: Mychal Goldsmith ds4 Jalil Stockton PA PA cp Slawson, Ashby, AHSAN RN as6 Tammy Zhang RN RN aa9 Tammy Zhang RN9 Edwar Rashid RN as6 Corrections: (The following items were deleted from the chart) 07/14 22:31 22:31 General: Smells of alcohol, as6 as6
--- NOTE | 2022-07-15 02:19 | EDPHYS ---
Physician Documentation [facility] Name: Harriett Gillette Age: 31 yrs Sex: Female : 1990 Arrival Date: 07/14/2022 Time: 21:55 Bed 6 Private MD: ED Physician Mc Rosenberg HPI: 07/14 22:30 This 31 yrs old Female presents to ER via EMS with complaints of Hyperglycemia.cp 22:30 The patient or guardian reports hyperglycemia, that was potentially precipitated by cp unable to afford prescribed insulin for past several months. 22:30 Associated signs and symptoms: Pertinent positives: nausea, urinary odor, Pertinent cp negatives: fever. Historical: - Allergies: 22:04 Codeine; aa9 22:04 Hydrocodone-Acetaminophen; aa9 - Home Meds: 22:04 Metformin Oral [Active]; aa9 - PMHx: 22:04 Diabetes - IDDM; GESTATIONAL DM; heart valve dysfunction; Pre-eclampsia; aa9 - PSHx: 22:04 Appendectomy; aa9 - Immunization history:: Client reports receiving the 2nd dose of the Covid vaccine. - Social history:: Smoking status: Patient reports the use of cigarette tobacco products, smokes one pack cigarettes per day. ROS: 22:35 Constitutional: Negative for body aches, chills, fever. cp 22:35 Eyes: Negative for injury, pain, redness, and discharge. cp 22:35 ENT: Negative for drainage from ear(s), ear pain, sore throat, difficulty swallowing, difficulty handling secretions. 22:35 Cardiovascular: Negative for chest pain. 22:35 Respiratory: Negative for cough, shortness of breath, wheezing. 22:35 Abdomen/GI: Positive for nausea, Negative for abdominal pain, vomiting, diarrhea. 22:35 Back: Negative for pain at rest, pain with movement. 22:35 : Positive for urinary symptoms, foul smelling urine. 22:35 Neuro: Negative for altered mental status, dizziness, headache, weakness. 22:35 All other systems are negative. Exam: 22:40 Head/Face: Normocephalic, atraumatic. cp 22:40 Constitutional: The patient appears in no acute distress, alert, awake, non-toxic, well developed, well nourished, overweight 22:40 Eyes: Periorbital structures: appear normal, Conjunctiva: normal, no exudate, no injection, Sclera: no appreciated abnormality, Lids and lashes: appear normal, bilaterally. 22:40 ENT: External ear(s): are unremarkable, Nose: is normal, Mouth: Lips: moist, Oral mucosa: pink and intact, moist, Posterior pharynx: is normal, airway is patent, no erythema, no exudate. 22:40 Neck: ROM/movement: is normal, is supple, without pain, no range of motions limitations, no meningismus. 22:40 Chest/axilla: Inspection: normal. 22:40 Cardiovascular: Rate: normal, Rhythm: regular. 22:40 Respiratory: the patient does not display signs of respiratory distress, Respirations: normal, no use of accessory muscles, no retractions, labored breathing, is not present, Breath sounds: are clear throughout, no decreased breath sounds, no stridor, no wheezing. 22:40 Abdomen/GI: Inspection: obese Bowel sounds: active, all quadrants, Palpation: abdomen is soft and non-tender, in all quadrants. 22:40 Back: CVA tenderness, is absent. 22:40 Neuro: Orientation: to person, place \T\ time. Mentation: is normal, Motor: moves all fours, strength is normal. Vital Signs: 22:00 BP 120 / 95; Pulse 98; Resp 17; Pulse Ox 100% ; aa9 22:05 Weight 63.5 kg; Height 5 ft. 0 in. (R); aa9 22:30 BP 134 / 87; Pulse 97; Resp 20 S; Pulse Ox 100% ; as6 23:39 BP 101 / 68; Pulse 95; Resp 18 S; Pulse Ox 100% on R/A; as6 07/15 02:25 BP 100 / 72; Pulse 85; Resp 18; Temp 98.6; Pulse Ox 100% on R/A; aa9 07/14 22:05 Body Mass Index 27.34 (63.50 kg, 152.4 cm) aa9 MDM: 07/14 22:03 Patient medically screened. cp 07/15 02:15 Data reviewed: vital signs, nurses notes, lab test result(s). cp 02:15 Consideration of Admission/Observation Escalation of care including cp admission/observation considered. I considered the following discharge prescriptions or medication management in the emergency department Medications were administered in the Emergency Department. See MAR. Test considered but Not performed: CT: abdomen/pelvis. Care significantly affected by the following chronic conditions: Diabetes. Care significantly affected by the following Social Determinants of Health: Poor access to healthcare and/or lack of insurance. Counseling: I had a detailed discussion with the patient and/or guardian regarding: the historical points, exam findings, and any diagnostic results supporting the discharge/admit diagnosis, lab results, the need for outpatient follow up, a family practitioner, to return to the emergency department if symptoms worsen or persist or if there are any questions or concerns that arise at home. Response to treatment: the patient's symptoms have markedly improved after treatment, and as a result, I will discharge patient. 07/14 22:04 Order name: CBC with Diff; Complete Time: cp 07/15 01:21 Interpretation: Normal except: MCH 25.7; PLT 422. cp 07/14 22:04 Order name: CMP; Complete Time: cp 07/15 01:21 Interpretation: Normal except: NA 131; CO2 19; GLUC 469; CRE 1.17; GFR 64; AST 10; GLOB cp 3.9; A/G 0.9. 07/14 22:04 Order name: Lipase; Complete Time: : cp 07/14 22:04 Order name: Test, Urine; Complete Time: : cp 07/14 22:04 Order name: Urinalysis w/ reflexes; Complete Time: : cp 07/14 22:04 Order name: Ketone, Serum; Complete Time: : cp 07/14 22:33 Order name: Glucose, Ancillary Testing; Complete Time: : EDOR 07/14 22:40 Order name: ETOH Level; Complete Time: : cp 07/14 22:40 Order name: UDS; Complete Time: : cp 07/14 23:43 Order name: Glucose, Ancillary Testing; Complete Time: : EDMS 07/14 23:54 Order name: Urine Culture EDOR 07/14 22:04 Order name: Accucheck Blood Glucose; Complete Time: 22:21 cp 07/14 22:04 Order name: IV Saline Lock; Complete Time: 22:13 cp 07/14 22:04 Order name: Labs collected and sent; Complete Time: 22:13 cp Administered Medications: 07/14 22:21 Drug: NS 0.9% IV 1000 ml Route: IV; Rate: 1 bolus; Site: left antecubital; as6 22:21 Drug: Famotidine IVP 20 mg Route: IVP; Site: left antecubital; as6 22:21 Drug: Ondansetron IVP 4 mg Route: IVP; Site: left antecubital; as6 22:47 Drug: Ativan IVP 0.5 mg Route: IVP; Site: left antecubital; as6 23:40 Drug: Insulin Regular Human IVP 10 units {Co-Signature: aa9 (Tammy Zhang RN).} Route: as6 IVP; Site: left antecubital; 07/15 01:53 Drug: Rocephin IV 1 grams Route: IV; Rate: calculated rate; Site: left antecubital; aa9 02:26 Follow up: Response: No adverse reaction; IV Status: Completed infusion; IV Intake: [id number] 01:53 Drug: Insulin Regular Human IVP 10 units {Co-Signature: as6 (Edwar Rashid RN).} aa9 Route: IVP; Site: left antecubital; 02:26 Follow up: Response: No adverse reaction; Blood sugar is lowered aa9 01:54 Drug: NS 0.9% IV 1000 ml Route: IV; Rate: 1 bolus; Site: left antecubital; aa9 02:25 Follow up: Response: No adverse reaction; IV Status: Completed infusion; IV Intake: aa9 700ml Point of Care Testing: Blood Glucose: 07/14 22:21 Blood Glucose: 475 mg/dL; as6 23:30 Blood Glucose: 380 mg/dL; as6 Ranges: Critical Glucose Levels:Adult <50 mg/dl or >400 mg/dl <40 mg/dl or >180 mg/dl Disposition Summary: 07/15/22 02:19 Discharge Ordered Location: Home cp Problem: new cp Symptoms: have improved cp Condition: Stable cp Diagnosis - Alcohol use, unspecified cp - Diabetes mellitus due to underlying condition with hyperglycemia cp - UTI/ Urinary tract infection, site not specified cp Followup: cp - With: Private Physician - When: 2 - 3 days - Reason: Recheck today's complaints Discharge Instructions: - Discharge Summary Sheet cp - Hyperglycemia cp - Urinary Tract Infection, Adult cp - Blood Glucose Monitoring, Adult cp - Diabetes Mellitus and Nutrition, Adult cp Forms: - Medication Reconciliation Form cp - Thank You Letter cp - Antibiotic Education cp - Prescription Opioid Use cp Prescriptions: - cefpodoxime 200 mg Oral Tablet - take 1 tablet by ORAL route every 12 hours for 7 days with food; 14 tablet; cp Refills: 0, Product Selection Permitted Signatures: Dispatcher [employer] EDMS Jalil Stockton PA PA cp Slawson, Ashby, RN RN as6 Tammy Zhang RN RN aa9 Tammy Zhang RN aa9 Edwar Rashid RN as6 Corrections: (The following items were deleted from the chart) 07/16 00:07/15 22:40 Constitutional: The patient appears in no acute distress, alert, awake, cp non-toxic, well developed, well nourished, overweight cp 07/16 00:07/15 22:40 Head/Face: Normocephalic, atraumatic. cp cp 07/16 00:07/15 22:40 Eyes: Periorbital structures: appear normal, Conjunctiva: normal, no cp exudate, no injection, Sclera: no appreciated abnormality, Lids and lashes: appear normal, bilaterally, cp 07/16 00:07/15 22:40 ENT: External ear(s): are unremarkable, Nose: is normal, Mouth: Lips: cp moist, Oral mucosa: pink and intact, moist, Posterior pharynx: is normal, airway is patent, no erythema, no exudate, cp 07/16 00:07/15 22:40 Neck: ROM/movement: is normal, is supple, without pain, no range of motions cp limitations, no meningismus, cp 07/16 00:07/15 22:40 Chest/axilla: Inspection: normal, cp cp 07/16 00:07/15 22:40 Cardiovascular: Rate: normal, Rhythm: regular, cp cp 07/16 00:07/15 22:40 Respiratory: the patient does not display signs of respiratory distress, cp Respirations: normal, no use of accessory muscles, no retractions, labored breathing, is not present, Breath sounds: are clear throughout, no decreased breath sounds, no stridor, no wheezing, cp 07/16 00:07/15 22:40 Abdomen/GI: Inspection: obese Bowel sounds: active, all quadrants, cp Palpation: abdomen is soft and non-tender, in all quadrants, cp 07/16 01:07/15 22:40 Back: CVA tenderness, is absent, cp cp 07/16 01:07/15 22:40 Neuro: Orientation: to person, place \T\ time. Mentation: is normal, Motor: cp moves all fours, strength is normal, cp
[2022-07-15 02:32] VITALS: O2SAT 100
[2022-07-15 02:36] VITALS: BP 100/72; TEMP 98.6
== END 2022-07-15 02:26 | disposition home or self-care (01) ==
LOC: ER 21:55
DX: E11.65 Type 2 diabetes mellitus with hyperglycemia (principal); N39.0 Urinary tract infection, site not specified; F10.90 Alcohol use, unspecified, uncomplicated; F17.210 Nicotine dependence, cigarettes, uncomplicated
CPT/HCPCS: 36415; 80053; 80307; 81001; 81025; 82010; 82947; 83690; 85025; 87086; 87088; 96365; 96375; 99284; G0480; J0696; J1815; J2405; J7030

== ENCOUNTER 2022-09-20 14:42 | Emergency (ER) | payer SELFPAY ==
--- OUTSIDE RECORDS SUMMARY | 2022-09-20 14:46 | XMS REPORT | Continuity of Care Document ---
:1990 Author Organization [facility] t Address [address] [facility] [address] [place] [address] Care Team Providers Name Role Phone ANEL METZ Primary Care Physician Unavailable GHISLAINE SAMUEL Attending Clinician Unavailable Provider, Wang Duttap Attending Clinician Unavailable Ghislaine Sameul PA-C Attending Clinician Doctor Unassigned, [place] Attending Clinician Unavailable DAKOTA VALENZUELA Attending Clinician Unavailable TERRANCE ALICEA Attending Clinician Unavailable Terrance Alicea DDS Attending Clinician Joao Babcock DO Attending Clinician Isaías Anel HER Attending Clinician ANEL METZ Attending Clinician Unavailable TERRANCE ALICEA Admitting Clinician Unavailable Terrance Alicea DDS Admitting Clinician Payers Payer Name Policy Type Policy Number Effective Date Expiration Date [id number] 2018 00:00:00 Problems Condition Condition Condition Status [...] ity of 25.0-29.9) 25.0-29.9[place] [facility] Nexplanon Nexplanon Disease Active 2021-[address] in place 1 ity of 00:00: [place] [facility] Submandibu Submandibu Disease Active 2020-02 U nivers lar lar 1-07 ity of abscess abscess 00:00: [place] 00 [facility] Cervical Cervical Disease Active Overview: Un nancy [...] glucose 2-13 ity of 00:00: [place] 00 [facility] Abnormal Abnormal Disease Active Unive rs maternal maternal 2-12 ity of glucose glucose 00:00: [place] tolerance, tolerance, 00 Me dical antepartum antepartum Br anch History of History of Disease Active U nivers gestationa gestationa 2-11 it y of l diabetes l diabetes [place] [facility] History of History of Disease Active U nivers pre-eclamp pre-eclamp 2-11 it y of blanca in blanca in 00:00: [place] prior prior 00 Medical , , Br anch currently currently Multiparit Multiparit Disease Active U nivers y y 2-11 ity of 00:00: [place] 00 Medical Branch Diet Diet Disease Active Overview: [facility] controlled controlled 4-10 A2GDM- it y of gestationa gestationa 00:00: glybnurid [facility] diabetes l diabetes 00 e 2.5 mg Medical mellitus mellitus Q am and Bran ch (GDM) in (GDM) in 5 mg Q pm second second trimester trimester High risk High risk Disease Active 2014-02 Uni vers , , 1-15 [place] of [place] [address] [place] [address] Allergies, Adverse Reactions, Alerts Allergy Allergy Status Severity Reaction(s) Onset Inactive Treating Comm ents Source Name Type Date Date Clinician No Known DA Active U [facility] 06-09 [facility] 00:00: [address] NO KNOWN Drug Active [facility] ALLERGIE Class ity of S [facility] Social History Social Habit Start Date Stop Date Quantity Comments Source Exposure to 2021-12-12 2021-12-22 Not sure [facility] SARS-CoV-2 00:00:00 12:38:00 [facility] (event) [facility] Tobacco use and 2021-12-22 2021-12-22 Smokeless tobacco Un iversity of exposure 00:00:00 00:00:00 non-user [facility] Alcohol intake 2021-12-22 2021-12-22 0 /d University 00:00:00 00:00:00 [facility] Tobacco Comment 2021-12-22 2021-12-22 smokes 3 Universit y of 00:00:00 00:00:00 cigarettes per [facility] day. pt states she Branch stopped smoking since she found out about . History of 2014-12-22 Cigarette Smoker Universi ty of tobacco use 00:00:00 [facility] Sex Assigned At [birth year] Universit y of 00:00:00 00:00:00 [facility] Smoking Status Start Date Stop Date Source Smokes tobacco daily 2021-12-22 00:00:00 Univers ity of [facility] Medications Ordered Filled Start Stop Current Ordering Indication Dosage Frequency Signature Comments Components Source Medication Medication Date Date Medication? Clinician (SIG) Name Name etonogestre 2021-02- No [id number] 68mg Univers L 02-21 ity of (NEXPLANON) 19:15: 18:35 [place] implant 68 00 :00 Medical Branch etonogestre 2021-02- No [id number] 68mg 68 mg, Univers L 02-21 Subdermal, ity of (NEXPLANON) 19:15: 18:35 ONCE NOW, [place] implant 68 00 :00 1 dose, On Med ical mg Sat [facility] 12/22/21 at 1415, Routine
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 12/22/21 at 1415, Routine
Use approved by: SLOT MACHINE REPAIRER insulin 2021-02 Yes inject Univers degludec -05 under the ity of (TRESIBA 12:59: skin. [place] U-100 59 Medical INSULIN SC) Branch insulin 2021-02 Yes inject Univers degludec 1-05 under the ity of (TRESIBA 12:59: skin. [place] U-100 59 Medical INSULIN SC) Branch dapaglifloz [...] route for 30 days. cephALEXin 2021-02- No [id number] 500mg Take 1 Univers (KEFLEX) 02-21 capsule by ity of 500 mg 00:00: 05:59 mouth 4 [place] capsule 00 :00 (four) Medical times [facility] daily for 7 days. cephALEXin 2021-02- No [id number] 500mg Take 1 Univers (KEFLEX) 02-21 capsule by ity of 500 mg 00:00: 05:59 mouth 4 [place] capsule 00 :00 (four) Medical times [facility] daily for 7 days. ARIPiprazol Yes TAKE ONE Un nancy e 2 mg 9-01 (1) ity of tablet 00:00: TABLET(S) 00 BY MOUTH Medical IN THE [facility] MORNING. ARIPiprazol Yes TAKE ONE Un nancy e 2 mg 9-01 (1) ity of tablet 00:00: TABLET(S) 00 BY MOUTH Medical IN THE [facility] MORNING. dapaglifloz 2020-02 Yes Xigduo XR U [...] Yes 15mL 15 mL, Univ ers ne -07 Oral ity of (PERIDEX) 14:00: ([place] 0.12 % 00 Spit Out), Medical mouthwash BID, First Bran ch 15 mL dose on 12/24/20 at 0800, Until Discontinu ed, Routine Sliding 2020-02 Yes Subcutaneo Univ ers Scale 1-07 us, TID ity of Insulin - 14:00: MEALS+HS, Negro as Lispro 00 First dose Medical (HumaLOG) + on [facility] Fsbg 12/24/20 at Testing 0800, Until Discontinu ed, Routine lactated 2020-02 Yes 1000mL at 50 Univer s ringers IV 1-07 mL/hr, ity of infusion 07:30: 1,000 [place], [place] 1,000 mL 00 IV Medical Infusion, Branch CONTINUOUS , Starting on Remus 12/24/20 at 0130, Until Discontinu ed, Routine naloxone 2020-02 Yes .1mg 0.1 mg, Univer s (NARCAN) 1-07 Slow IV ity of injection 07:21: Push, PRN Negro as 0.1 mg 11 - SEE Medical INSTRUCTIO [place] [facility] NS, Starting on Remus 12/24/20 at 0121, Until Discontinu ed, Routine, Sedation/R espiratory Depression , See admin instructio ns. morpHINE 2020-02- No 2mg 2 mg, Slow Un nancy injection 2 07 11-09 IV Push, ity of mg 07:21: 07:20 Q3HPRN, [place] 11 :11 Starting Medical on [facility] 12/24/20 at 0121, Until 12/26/20 at 0120, Routine, Pain (scale 7-10) HYDROcodone 2020-02 Yes 1{tbl} 1 tablet, Univers -acetaminop 1-07 Oral, ity of hen (NORCO 07:21: Q6HPRN, [place] 5) 5-325 mg 10 Starting Medi aleksey tablet 1 on [facility] tablet 12/24/20 at 0121, Until Discontinu ed, Routine, Pain (scale 4-6) ibuprofen 2020-02 Yes 600mg 600 mg, Univ ers (ADVIL 1-07 Oral, ity of CHILDREN'S) 07:21: Q6HPRN, Negro as 100 mg/5 mL 04 Starting Medi aleksey oral on [facility] suspension 12/24/20 at 600 mg 0121, Until Discontinu ed, Routine, Pain (scale 1-3) ondansetron 2020-02 Yes 4mg 4 mg, Slow Univers (ZOFRAN 1-07 IV Push, ity of (PF)) 07:20: Q4HPRN, [place] injection 4 54 Starting Medi aleksey mg on Rem[place] Branch 12/24/20 at 0120, Until Discontinu ed, Routine, Nausea and Vomiting (N/V) chlorhexidi 2020-02 Yes [id number] 15mL Swish and Univers ne 0.12 % 1-07 spit out ity of mouthwash 00:00: 15 mL 2 [place] 00 (two) Medical times Branch daily. ibuprofen 2020-02 Yes [id number] 600mg Take 30 mL Univers 100 mg/5 mL 1-07 by mouth ity of oral 00:00: every 6 [place] suspension 00 (six) Medical hours as Branch needed for Pain (scale 1-3). chlorhexidi 2020-02 Yes [id number] 15mL Swish and Univers ne 0.12 % 1-07 spit out ity of mouthwash 00:00: 15 mL 2 [place] 00 (two) Medical times Branch daily. ibuprofen 2020-02 Yes [id number] 600mg Take 30 mL Univers 100 mg/5 mL 1-07 by mouth ity of oral 00:00: every 6 [place] suspension 00 (six) Medical hours as Branch needed for Pain (scale 1-3). chlorhexidi 2020-02 Yes [id number] 15mL Swish and Univers ne 0.12 % 1-07 spit out ity of mouthwash 00:00: 15 mL 2 [place] 00 (two) Medical times Branch daily. ibuprofen 2020-02 Yes [id number] 600mg Take 30 mL Univers 100 mg/5 mL 1-07 by mouth ity of oral 00:00: every 6 [place] suspension 00 (six) Medical hours as Branch needed for Pain (scale 1-3). chlorhexidi 2020-02 No [id number] 15mL Swish and Univers ne 0.12 % 02-2305 spit out ity o f mouthwash 00:00: 00:00 15 mL 2 [place] 00 :00 (two) Medical times Branch daily. ibuprofen 2020-02 No [id number] 600mg Take 30 mL Univers 100 mg/5 mL -07 11-05 by mouth ity of oral 00:00: 00:00 every 6 [place] suspension 00 :00 (six) Medical hours as Branch needed for Pain (scale 1-3). chlorhexidi 2020-02- No [id number] 15mL Swish and Univers ne 0.12 % 02-23 spit out ity o f mouthwash 00:00: 00:00 15 mL 2 [place] 00 :00 (two) Medical times Branch daily. ibuprofen 2020-02- No [id number] 600mg Take 30 mL Univers 100 mg/5 [...] Indication s: acute pain amoxicillin 2020-02- No [id number] 1{tbl} Take 1 Univers -clavulanat 02-23 tablet by it y of e 00:00: 05:59 mouth 2 [place] (AUGMENTIN) 00 :00 (two) Medical 875-125 mg times Branch per tablet daily for 7 days. Blood-Gluco Yes [id number] Use as Univers se Meter 2-18 directed ity of (FREESTYLE 00:00: [place] LITE METER) 00 Medical Kit Branch blood sugar Yes [id number] Use as Univers diagnostic 2-18 directed ity o f (FREESTYLE 00:00: [place] LITE 00 Medical STRIPS) Branch strip lancets 17 Yes [id number] Use as U nivers gauge Misc 2-18 directed ity o f 00:00: [place] 00 Medical Branch Blood-Gluco Yes [id number] Use as Univers se Meter 2-18 directed ity of (FREESTYLE 00:00: [place] LITE METER) 00 Medical Kit Branch blood sugar Yes [id number] Use as Univers diagnostic 2-18 directed ity o f (FREESTYLE 00:00: [place] LITE 00 Medical STRIPS) Branch strip lancets 17 Yes [id number] Use as U nivers gauge Misc 2-18 directed ity o f 00:00: [place] 00 Medical Branch Blood-Gluco Yes [id number] Use as Univers se Meter 2-18 directed ity of (FREESTYLE 00:00: [place] LITE METER) 00 Medical Kit Branch lancets 17 2018-0 Yes [id number] Use as U nivers gauge Misc 2-18 directed ity o f 00:00: [place] 00 Medical Branch Blood-Gluco 2018-0 Yes [id number] Use as Univers se Meter 2-18 directed ity of (FREESTYLE 00:00: [place] LITE METER) 00 Medical Kit Branch lancets 17 0 Yes [id number] Use as U nivers gauge Misc 2-18 directed ity o f 00:00: [place] 00 Medical Branch Blood-Gluco 2018- Yes [id number] Use as Univers se Meter 2-18 directed ity of (FREESTYLE 00:00: [place] LITE METER) 00 Medical Kit Branch blood sugar Yes [id number] Use as Univers diagnostic 2-18 directed ity o f (FREESTYLE 00:00: [place] LITE 00 Medical STRIPS) Branch strip lancets 17 0 Yes [id number] Use as U nivers gauge Misc 2-18 directed ity o f 00:00: [place] 00 Medical Branch Blood-Gluco Yes [id number] Use as Univers se Meter 2-18 directed ity of (FREESTYLE 00:00: [place] LITE METER) 00 Medical Kit Branch blood sugar Yes [id number] Use as Univers diagnostic 2-18 directed ity o f (FREESTYLE 00:00: [place] LITE 00 Medical STRIPS) Branch strip lancets 17 2018-0 Yes [id number] Use as U nivers gauge Misc 2-18 directed ity o f 00:00: [place] 00 Medical Branch Blood-Gluco 2018-0 Yes [id number] Use as Univers se Meter 2-18 directed ity of (FREESTYLE 00:00: [place] LITE METER) 00 Medical Kit Branch blood sugar 2019-0 Yes [id number] Use as Univers diagnostic 2-18 directed ity o f (FREESTYLE 00:00: [place] LITE 00 Medical STRIPS) Branch strip lancets 17 2018-0 Yes [id number] Use as U nivers gauge Misc 2-18 directed ity o f 00:00: [place] 00 Medical Branch Blood-Gluco 2019-0 Yes [id number] Use as Univers se Meter 2-18 directed ity of (FREESTYLE 00:00: [place] LITE METER) 00 Medical Kit Branch blood sugar Yes [id number] Use as Univers diagnostic 2-18 directed ity o f (FREESTYLE 00:00: [place] LITE 00 Medical STRIPS) Branch strip lancets 17 Yes [id number] Use as U nivers gauge Misc 2-18 directed ity o f 00:00: [place] 00 Medical Branch Blood-Gluco Yes [id number] Use as Univers se Meter 2-18 directed ity of (FREESTYLE 00:00: [place] LITE METER) 00 Medical Kit Branch blood sugar Yes [id number] Use as Univers diagnostic 2-18 directed ity o f (FREESTYLE 00:00: [place] LITE 00 Medical STRIPS) Branch strip lancets 17 Yes [id number] Use as U nivers gauge Misc 2-18 directed ity o f 00:00: [place] 00 Medical Branch blood sugar 2021- No [id number] Use as Univers diagnostic 2-18 12-22 directed ity of (FREESTYLE 00:00: 00:00 [place] LITE 00 :00 Medical STRIPS) Branch strip blood sugar 2021- No [id number] Use as Univers diagnostic 2-18 12-22 directed ity of (FREESTYLE 00:00: 00:00 [place] LITE 00 :00 Medical STRIPS) Branch strip Yes [id number] 1{packe Take 1 Univers vit 2-12 t} Packet by ity of 33-iron-fol 00:00: mouth [place] ic-dha 00 daily. Medical (SELECT-OB Branch + DHA) 29 mg iron-1 mg -250 mg combo pack Yes [id number] 1{packe Take 1 Univers vit 2-12 t} Packet by ity of 33-iron-fol 00:00: mouth [place] ic-dha 00 daily. Medical (SELECT-OB Branch + DHA) 29 mg iron-1 mg -250 mg combo pack Yes [id number] 1{packe Take 1 Univers vit 2-12 t} Packet by ity of 33-iron-fol 00:00: mouth [place] ic-dha 00 daily. Medical (SELECT-OB Branch + DHA) 29 mg iron-1 mg -250 mg combo pack Yes [id number] 1{packe Take 1 Univers vit 2-12 t} Packet by ity of 33-iron-fol 00:00: mouth [place] ic-dha 00 daily. Medical (SELECT-OB Branch + DHA) 29 mg iron-1 mg -250 mg combo pack Yes [id number] 1{packe Take 1 Univers vit 2-12 t} Packet by ity of 33-iron-fol 00:00: mouth [place] ic-dha 00 daily. Medical (SELECT-OB Branch + DHA) 29 mg iron-1 mg -250 mg combo pack Yes [id number] 1{packe Take 1 Univers vit 2-12 t} Packet by ity of 33-iron-fol 00:00: mouth [place] ic-dha 00 daily. Medical (SELECT-OB Branch + DHA) 29 mg iron-1 mg -250 mg combo pack Yes [id number] 1{packe Take 1 Univers vit 2-12 t} Packet by ity of 33-iron-fol 00:00: mouth [place] ic-dha 00 daily. Medical (SELECT-OB Branch + DHA) 29 mg iron-1 mg -250 mg combo pack 2021- No [id number] 1{packe Take 1 Univers vit 2-12 11-05 t} Packet by ity of 33-iron-fol 00:00: 00:00 [place] ic-dha 00 :00 daily. Medical (SELECT-OB Branch + DHA) 29 mg iron-1 mg -250 mg combo pack 2021- No [id number] 1{packe Take 1 Univers vit 2-12 11-05 t} Packet by ity of 33-iron-fol 00:00: 00:00 [place] ic-dha 00 :00 daily. Medical (SELECT-OB Branch + DHA) 29 mg iron-1 mg -250 mg combo pack Immunizations Ordered Filled Immunization Date Status Comments [facility] e Immunization Name Name HPV9 2021-12-22 Completed University of 00:00:00 [facility] HPV9 2021-12-22 Completed University of 00:00:00 [facility] Influenza Virus 2020-04-28 Completed Universit y of Vaccine Quad .5 mL 00:00:00 [facility] 6+ MO Branch Influenza Virus 2020-04-28 Completed Universit y of Vaccine [place] .5 mL 00:00:00 [place] [facility] IM 6+ MO Branch Influenza Virus [...] y of Vaccine Quad .5 mL 00:00:00 [place] [facility] IM 6+ MO Branch Influenza Virus 2020-04-28 Completed Universit y of Vaccine Quad .5 mL 00:00:00 [facility] 6+ MO Branch HPV9 2016-11-06 Completed University of 00:00:00 [facility] Branch HPV9 2016-11-06 Completed University of 00:00:00 [place] [facility] HPV9 2016-11-06 Completed University of 00:00:00 [place] [facility] HPV9 2016-11-06 Completed University of 00:00:00 [place] [facility] HPV9 2016-11-06 Completed University of 00:00:00 [place] [facility] HPV9 2016-11-06 Completed University of 00:00:00 [place] [facility] HPV9 2016-11-06 Completed University of 00:00:00 [place] [facility] HPV9 2016-11-06 Completed University of 00:00:00 [place] [facility] HPV9 2016-11-06 Completed University of 00:00:00 [place] [facility] HPV9 2016-09-05 Completed University of 00:00:00 [place] [facility] HPV9 2016-09-05 Completed University of 00:00:00 [place] [facility] HPV9 2016-09-05 Completed University of 00:00:00 [place] [facility] HPV9 2016-09-05 Completed University of 00:00:00 [place] [facility] HPV9 2016-09-05 Completed University of 00:00:00 [place] [facility] HPV9 2016-09-05 Completed University of 00:00:00 [place] [facility] HPV9 2016-09-05 Completed University of 00:00:00 [place] [facility] HPV9 2016-09-05 Completed University of 00:00:00 [facility] HPV9 2016-09-05 Completed University of 00:00:00 [place] [facility] TDAP 2015-05-25 Completed University of 00:00:00 [place] [facility] TDAP 2015-05-25 Completed University of 00:00:00 [place] [facility] TDAP 2015-05-25 Completed University of 00:00:00 [place] [facility] TDAP 2015-05-25 Completed University of 00:00:00 [place] [facility] TDAP 2015-05-25 Completed University of 00:00:00 [place] [facility] TDAP 2015-05-25 Completed University of 00:00:00 [place] [facility] TDAP 2015-05-25 Completed University of 00:00:00 [place] [facility] TDAP 2015-05-25 Completed University of 00:00:00 [place] [facility] TDAP 2015-05-25 Completed University of 00:00:00 [facility] Vital Signs Vital Name Observation Time Observation Value Comments Source Systolic blood 2021-12-22 17:38:00 119 mm[Hg] Univer sity of pressure [facility] Diastolic blood 2021-12-22 17:38:00 77 mm[Hg] Unive rsity of pressure [facility] Heart rate 2021-12-22 17:38:00 76 /min Universi ty [facility] Body temperature 2021-12-22 17:38:[address] [facility] Respiratory rate 2021-12-22 17:38:00 18 /min [facility] Body height 2021-12-22 17:38:00 154.9 [facility] Body weight 2021-12-22 17:38:00 60.51 [facility] BMI 2021-12-22 17:38:00 25.21 kg/m2 Universi ty [facility] Systolic blood 2020-12-24 17:05:00 125 mm[Hg] Univer sity of pressure [facility] Diastolic blood 2020-12-24 17:05:00 87 mm[Hg] Unive rsity of pressure [facility] Heart rate 2020-12-24 17:05:00 91 /min Universi ty [facility] Body temperature 2020-12-24 17:05:00 36.22 [place] [facility] Respiratory rate 2020-12-24 17:05:00 18 /min Univ ersity of [facility] Oxygen saturation in 2020-12-24 17:05:00 98 /min [facility] Arterial blood by [facility] Pulse oximetry Branch Body weight 2020-12-24 06:32:00 68.04 kg Universi ty of [place] [facility] BMI 2020-12-24 06:32:00 28.34 kg/m2 Universi ty of [place] [facility] Systolic blood 2020-04-28 16:31:00 106 mm[Hg] Univer sity of pressure [place] [facility] Diastolic blood 2020-04-28 16:31:00 73 mm[Hg] Unive rsity of pressure [place] [facility] Heart rate 2020-04-28 16:31:00 77 /min Universi ty of [place] [facility] Body temperature 2020-04-28 16:31:00 36.72 [place] Univ ersity of [place] [facility] Respiratory rate 2020-04-28 16:31:00 16 /min Univ ersity of [place] [facility] Body height 2020-04-28 16:31:00 154.9 cm Universi ty of [place] [facility] Body weight 2020-04-28 16:31:00 59.081 kg Universi ty of [place] [facility] BMI 2020-04-28 16:31:00 24.61 kg/m2 Universi ty of [place] [facility] Systolic blood 2020-04-28 16:31:00 106 mm[Hg] Univer sity of pressure [place] [facility] Diastolic blood 2020-04-28 16:31:00 73 mm[Hg] Unive rsity of pressure [place] [facility] Heart rate 2020-04-28 16:31:00 77 /min Universi ty of [place] [facility] Body temperature 2020-04-28 16:31:00 36.72 [place] Univ ersity of [place] [facility] Respiratory rate 2020-04-28 16:31:00 16 /min Univ ersity of [place] [facility] Body height 2020-04-28 16:31:00 154.9 cm Universi ty of [place] [facility] Body weight 2020-04-28 16:31:00 59.081 kg Universi ty of [place] [facility] BMI 2020-04-28 16:31:00 24.61 kg/m2 Universi ty of [place] [facility] Procedures Procedure Date / Time Performed Performing Clinician Sour e POCT TEST 2021-12-22 17:49:00 Ghislaine Samuel [facility] GARDASIL 9 (HPV 9V) 2021-12-22 17:48:52 Ghislaine Samuel [facility] VACCINE [facility] ASSIGNMENT OF BENEFITS 2021-12-22 17:24:31 Doctor Unassigned, No [facility] EXTERNAL PROVIDER 2021-01-02 06:01:00 Doctor Unassigned, No [facility] POCT GLUCOSE 2020-12-24 14:10:00 Terrance Alicea Boyds o f [place] (AUTOMATED) [facility] ASSIGNMENT OF BENEFITS 2020-04-28 17:41:20 Doctor Unassigned, No [facility] FLU VACC ([id number]), 2020-04-28 17:21:26 Anel Metz [facility] 6+ MONTHS, IM, QUAD Medical Bran ch Encounters Start End Encounter Admission Attending Care Care Encounter Source Date/Time Date/Time Type Type Clinicians Facility Department ID 2021-12-22 2021-12-22 Outpatient R JIMMIE [facility] [id number] [facility] 12:45:00 13:22:01 GHISLAINE valdez [facility] 2021-12-22 2021-12-22 Office [facility] [id number] Univers 12:45:00 13:22:01 Visit Ghislaine Samuel 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 [id number] Negro as [id number] [address] 2021-01-02 2021-01-02 Orders Doctor SAMMY [id number] Univers 00:00:00 00:00:00 Only UnassignedGIL [id number] ity of [place] [facility] [id number] Negro as [id number] [facility] 009 Branch 2020 2020 Outpatient R DARRELL [facility] [id number] Univers 14:00:00 14:00:00 [facility] 2020-12-26 2020-12-26 Outpatient R ABBIEANI [facility] [id number] Univers 16:30:00 16:30:00 [facility] 2020-12-24 2020-12-24 Outpatient X DARRELL [facility] HERMILO [id number] Univers 01:34:00 17:25:00 [facility] 2020-12-24 2020-12-24 Emergency DIVINE [place]a [id number] Univers 01:34:00 17:25:[address] [facility] GIL [id number] it y of [facility] [id number] Negro as [id number] [facility] 091 [place] [facility] 2020-05-09 2020-05-[address] [facility] [id number] Univers 00:00:00 00:00:00 Outreach Joao PRIMARY [id number] i ty of [place] [facility] 4.2.7.2.686 [place] [id number] Ok dical [address] [facility] 2020-05-09 2020-05-09 Patient Sadiq CAYANELIS [id number] 00:00:00 00:00:00 Outreach Joao PRIMARY [id number] [place] [facility] [id number] PAVILLION [id number] 2020-04-28 2020-04-[address] [facility] [id number] Univers 10:17:04 11:41:16 Visit Anel Munguia SLOT MACHINE REPAIRER [id number] ity of [facility] [id number] Negro as MATERNAL [id number] Med ical & CHILD [address] [place] [address] 2020-04-28 2020-04-28 [facility] [id number] 10:17:04 11:41:16 Visit Anel Munguia SLOT MACHINE REPAIRER [id number] [facility] [id number] MATERNAL [phone] & CHILD [address] [place] [address] 2020-04-28 2020-04-28 [facility] [id number] [facility] 10:15:00 10:15:00 ANEL valdez o f [facility] 2020-04-28 2020-04-28 Orders Doctor SAMMY [id number] [facility] 00:00:00 00:00:00 Only Unassigned, GIL 350.1.13.10 ity of [place] [facility] [id number] Negro as [phone] [address] Results Test Description Test Time Test Comments Results Result Comments Source POCT TEST 2021-12-22 17:50:00 Test Item Value Reference Range Interpretation Comme nts POCT PREG (test code = 1605) Negative On board controls acceptable with C Line (test code = 3574) Yes POCT PREG LOT # (test code = 3575) POCT PREG TEST DATE (test code = 3576) [id number] 17:50:00 Test Item Value Reference Range Interpretation Comments POCT PREG (test code = 1605) Negative On board controls acceptable with C Yes Line (test code = 3574) POCT PREG LOT # (test code = 3575) POCT PREG TEST DATE (test code = 3576) [facility] RT-PCR/[id number] 17:22:59 Test Item Value Reference Interpretation Comments Range SARS-CoV-2 NEGATIVE SEE NOTE SARS-CoV-2 RNA NOT INTERPRETATION DETECTEDNegat zelda (test code = 72641) results do not preclude SARS-C oV-2 infection [...] (test code = NASOPHARY[place]: [place] [address]) Juliana Leeann Zahira l-Time RT-PCR. The exp [...] provided by met hod given in report:https:// www.[employer].com/clinic ians/cl ient-communicat ions/ Alternatively, see downloadable PD F fact sheet at:https://www. [employer]/COVID-19-R T-PCR UNLESS OTHERWIS E INDICATED, ALL TESTING PERFORMED [facility], [facility]. [address] [place] [id number] SHANIA PARIKH DIRECTOR: ERICK NEAL M.D. CLIA NUMBER [id number] CAP ACCREDITATION N O. [id number] POCT GLUCOSE (AUTOMATED)2020-12-24 14:12:21 Test Item Value Reference Range Interpretation Comments POCT GLU (test code = 1621091271) 212 mg/dL 70-110 H Lab Interpretation (test code = Abnormal 85224-5) [facility] 15:58:00 Test Item Value Reference Range Interpretation Comments GLUBED (test code = GLUBED) 148 mg/dL 65-110 H [id number] 10:51:00 Test Item Value Reference Range Interpretation Comments GLUBED (test code = GLUBED) 174 mg/dL 65-110 H [id number] 06:04:00 Test Item Value Reference Range Interpretation Comments GLUBED (test code = GLUBED) 83 mg/dL 65-110 N GLYCOSYLATED HEMOGLOBIN [id number] 04:40:00 Test Item Value Reference Range Interpretation [...] H (test code = MBG) COMPREHENSIVE METABOLIC [id number] 04:40:00 Test Item Value Reference Range Interpretation [...] fructosaminesho uld be considered for these patients. [id number] 00:14:00 Test Item Value Reference Range Interpretation Comments GLUBED (test code = GLUBED) 194 mg/dL 65-110 H COMPREHENSIVE METABOLIC [id number] 21:06:00 Test Item Value Reference Range Interpretation [...] (HA1C) (test code = GLYHGB) CBC W/AUTO [id number] 20:53:00 Test Item Value Reference Range Interpretation [...] (test NORMAL NORMAL code = PLTMR) URINALYSIS [id number] 20:08:00 Test Item Value Reference Range Interpretation [...] #/hpf NONE SEEN A URINE SAMPLE: CLEAN [id number] 20:01:00 Test Item Value Reference Range Interpretation Comments GLUBED (test code = GLUBED) 196 mg/dL 65-110 H URINALYSIS [id number] 19:53:00 Test Item Value Reference Range Interpretation [...] Notes Date/Time Note Provider Source 2018-06-17 17:42:00-00:00 [id number] [facility] [address] [address] PATIENT NAME: AILYN MCCOY ADMIT DATE: 06/09/18 ACCOUNT NO: [id number] ROOM NO: 3026 AGE: 27 SEX: F ADMITTING PHYSICIAN: Richard Bojorquez MD ATTENDING PHYSICIAN: Richard Bojorquez MD ADMISSION DATE: 06/09/2018 TRIAGE EVALUATION [...] her Toujeo. Now on arrival in the [facility], her blood glucose level is 196. She [...] her baby. She has no information on ri s health. She states she drinks 4 to 6 beers per weekend and she states t hat she lost her significant other, when he suddenly she was very sad and she was drinking heavily at a one night stand and which resulted in this pregn mari. She was working at [employer], doing [employer] g and lifting approximately 40-pound weight, but [...] insulin slidin g scale. Nutritional consult and breastfeeding educator will see the patient in th [...] also strongly encouraged to quit smoking altogether. dump worker consult is requested. Dictated By: Kathy Corona MD WT: HP:JERRY/BIANCAI/NTS Conf#: [id number]/DID#: [id number] Authenticated and Edited by Kathy Corona MD On 07/08/18 8:40:30 AM Electronically Signed by Kathy Corona MD on at 0843 PATIENT NAME: AILYN MCCOY 78 2018-06-10 14:02:00-00:00 [facility] ([facility]) OB Disch Undelivered REPORT#:[id number] REPORT STATUS: Signed DATE:06/10/18 TIME: 1402 PATIENT: AILYN MCCOY UNIT #: [id number] ROOM/BED: [address] : 90 AGE: 27 SEX: F ATTEND: Richard Bojorquez MD ADM AUTHOR: Richard Bojorquez MD * ALL edits or amendments must be made on the [employer]/computer document * Subjective Subjective Patient reports: Patient [...] Bojorquez MD on 06/10 at 1404 RPT #:[id number] END OF REPORT 2018-06-10 14:02:00-00:00 [facility] ([facility]) OB Disch Undelivered REPORT#:[id number] REPORT STATUS: Signed DATE:06/10/18 TIME: 1402 PATIENT: AILYN MCCOY UNIT #: [id number] ROOM/BED: [address] : 90 AGE: 27 SEX: F ATTEND: Richard Bojorquez MD ADM AUTHOR: Richard Bojorquez MD * ALL edits or amendments must be made on the [employer] document * See Addendum Subjective Subjective Patient [...] Bojorquez MD on 06/10 at 1412 RPT #:[id number] END OF REPORT 2018-06-10 13:15:00-00:00 [facility] ([facility]) OB Admission / H P REPORT#:[id number] REPORT STATUS: Signed DATE:06/10/18 TIME: 1315 PATIENT: AILYN MCCOY UNIT #: [id number] ROOM/BED: 3026-A : 90 AGE: 27 SEX: F ATTEND: Richard Bojorquez MD ADM AUTHOR: Richard Bojorquez MD * ALL edits or amendments must be made on the el [employer]/computer document * OB Admission H P Hx [...] Status Admin Insulin Human Lispro 16 UNITS DIN 06/10 1630 AC (HumaLOG 3ML VIAL) [...] Admin Diphtheria/Pertussis/ 0.5 ML ONCE ONE 06/09 20 00 DC Tetanus Vacc IM 06/09 2100 (ADACEL [...] Bojorquez MD on 06/10 at 1324 RPT #:[id number] END OF REPORT
[2022-09-20 16:30] LABS: Absolute Lymphocytes (CBC) 2.7 K/uL (0.7-4.9); Lymphocytes % 26.9 % (15.3-44.8); MPV 8.6 fL (7.6-11.3); RBC Red Blood Cell Count 4.88 M/uL (3.86-4.86)
[2022-09-20 16:43] LABS: Albumin 3.8 g/dL (3.4-5.0); Bilirubin Direct 0.1 mg/dL (0-0.2); Bilirubin Indirect, Calculated 0.3 mg/dL (0.2-0.8); Bilirubin Total 0.4 mg/dL (0.2-1.0); Potassium 3.4 mEq/L (3.5-5.1); Protein, Total 8.8 g/dL (6.4-8.2); Troponin High Sensitivity 3.6 pg/mL (<58.9)
--- NOTE | 2022-09-20 16:48 | RAD REPORT ---
EXAM DESCRIPTION: Disha Single View09/20/2022 4:25 pm CLINICAL HISTORY: Chest pain COMPARISON: 2017 FINDINGS: The lungs appear clear of acute infiltrate. The heart is normal size IMPRESSION: No acute abnormalities displayed
--- NOTE | 2022-09-20 18:09 | ER ---
Nurse's Notes [facility] Name: Harriett Gillette Age: 31 yrs Sex: Female : 1990 Arrival Date: 09/20/2022 Time: 14:42 Bed 20 Private MD: Diagnosis: Palpitations Presentation: 09/20 15:18 Chief complaint: Patient states: "The past two weeks, I've been getting flutters in my mb9 heart. I've been getting dizzy and having chest tightness. Today I was driving around and my chest started getting tight and dizzy again. I feel SOB and feels like someone is crushing my chest". Coronavirus screen: Vaccine status: Patient reports receiving the 2nd dose of the covid vaccine. Ebola Screen: No symptoms or risks identified at this time. Initial Sepsis Screen: Does the patient meet any 2 criteria? No. Patient's initial sepsis screen is negative. Does the patient have a suspected source of infection? No. Patient's initial sepsis screen is negative. Risk Assessment: Do you want to hurt yourself or someone else? Patient reports no desire to harm self or others. Onset of symptoms was September 20, 2022. 15:18 Method Of Arrival: Ambulatory 9 15:18 Acuity: TIFFANIE 3 mb9 Triage Assessment: 15:21 General: Appears in no apparent distress. Behavior is calm, cooperative. Pain: mb9 Complains of pain in chest Pain does not radiate. Pain currently is 5 out of 10 on a pain scale. Quality of pain is described as pressure, Pain began gradually, Is continuous. Neuro: Lopez Agitation-Sedation Scale (RASS): 0 - Alert and Calm Level of Consciousness is awake, alert, obeys commands, Oriented to person, place, time, situation, Appropriate for age. Cardiovascular: Reports chest pain, palpitations. Respiratory: Airway is patent Respiratory effort is even, unlabored, Respiratory pattern is regular, symmetrical, Breath sounds are clear bilaterally. GI: No signs and/or symptoms were reported involving the gastrointestinal system. : No signs and/or symptoms were reported regarding the genitourinary system. Derm: Skin is pink, warm \\T\\ dry. Musculoskeletal: Range of motion: intact in all extremities. Historical: - Allergies: 15:20 Codeine; mb9 15:20 Hydrocodone-Acetaminophen; mb9 - Home Meds: 15:20 Metformin Oral [Active]; Tresiba FlexTouch U-100 subcutaneous [Active]; mb9 - PMHx: 15:20 Diabetes - IDDM; GESTATIONAL DM; Pre-eclampsia; heart valve dysfunction; mb9 - PSHx: 15:20 Appendectomy; mb9 - Immunization history:: Adult Immunizations up to date. - Social history:: Smoking status: Patient/guardian denies using tobacco. Vital Signs: 15:18 BP 122 / 91; Pulse 88; Resp 18; Temp 97.4; Pulse Ox 100% ; Weight 58.97 kg; Height 5 mb9 ft. 0 in. ; Pain 5/10; 17:00 BP 119 / 82; Pulse 81; Resp 18; Pulse Ox 100% on R/A; eh3 18:00 BP 121 / 82; Pulse 79; Resp 15; Pulse Ox 100% on R/A; eh3 15:18 Body Mass Index 25.39 (58.97 kg, 152.4 cm) mb9 15:18 Pain Scale: Adult mb9 ED Course: 15:05 Patient arrived in ED. im 15:11 Trell Downing MD is Attending Physician. kdr 15:18 Arm band placed on. mb9 15:20 Triage completed. mb9 16:11 Radiology exam delayed due to IV insertion attempt and/or patient not having az appropriate IV at this time. 16:25 Initial lab(s) drawn, by me, sent to lab. EKG done, by ED staff, reviewed by Trell Downing MD. Inserted saline lock: 22 gauge in left antecubital area, using aseptic technique. 16:26 Patient has correct armband on for positive identification. Placed in gown. Bed in low mm9 position. Call light in reach. Side rails up X 1. Warm blanket given. Client placed on continuous cardiac and pulse oximetry monitoring. NIBP monitoring applied. environmental monitoring technician on. Pulse ox on. NIBP on. 16:27 XRAY Chest (1 view) In Process Unspecified. EDMS 16:28 Basic Metabolic Panel Sent. mm9 16:28 CBC with Diff Sent. mm9 16:28 D-Dimer Sent. mm9 16:28 LFT's Sent. mm9 16:28 Troponin HS Sent. mm9 16:28 X-ray(s) taken. mm9 17:10 COVID swab sent to lab. mm9 17:15 Carri Hill, RN is Primary Nurse. 3 18:30 No provider procedures requiring assistance completed. IV discontinued, intact, eh3 bleeding controlled, No redness/swelling at site. Pressure dressing applied. Administered Medications: No medications were administered Outcome: 18:09 Discharge ordered by . kdr 18:30 Discharged to home ambulatory, with family. 3 18:30 Condition: stable 18:30 Discharge instructions given to patient, Instructed on discharge instructions, follow up and referral plans. Demonstrated understanding of instructions, follow-up care. 18:30 Patient left the ED. 3 Signatures: Dispatcher [employer] EDMS Trell Downing MD MD kdr Zavala, Araceli az Hall, Erin, RN RN 3 Haley Lord [facility] Yael, Catrina Romero, RN RN mb9 Sara Billingsley
--- NOTE | 2022-09-20 18:09 | EDPHYS ---
Physician Documentation [facility] Name: Harriett Gillette Age: 31 yrs Sex: Female : 1990 Arrival Date: 09/20/2022 Time: 14:42 Bed 20 Private MD: ED Physician Trell Downing HPI: 09/20 20:21 This 31 yrs old Female presents to ER via Ambulatory with complaints of Chest kdr Tightness. 20:22 . Patient states that for the past 2 weeks she has had palpitations. She says she gets kdr the palpitations off and on throughout the day. She has had some dizziness and chest tightness with the palpitations. Today she was driving around in her car when her chest started to hurt and get tight and she had some dizziness. She also felt slightly short of breath. These episodes occur spontaneously and without any precipitating factors. Onset: The symptoms/episode began/occurred gradually, 2 week(s) ago. Severity of symptoms: At their worst the symptoms were mild in the emergency department the symptoms have resolved have improved. The patient has not experienced similar symptoms in the past. The patient has not recently seen a physician. Historical: - Allergies: 15:20 Codeine; mb9 15:20 Hydrocodone-Acetaminophen; mb9 - Home Meds: 15:20 Metformin Oral [Active]; Tresiba FlexTouch U-100 subcutaneous [Active]; mb9 - PMHx: 15:20 Diabetes - IDDM; GESTATIONAL DM; Pre-eclampsia; heart valve dysfunction; mb9 - PSHx: 15:20 Appendectomy; mb9 - Immunization history:: Adult Immunizations up to date. - Social history:: Smoking status: Patient/guardian denies using tobacco. ROS: 20:22 Constitutional: Negative for fever, chills, and weight loss, Eyes: Negative for injury, kdr pain, redness, and discharge, ENT: Negative for injury, pain, and discharge, Neck: Negative for injury, pain, and swelling, Respiratory: Negative for shortness of breath, cough, wheezing, and pleuritic chest pain, Abdomen/GI: Negative for abdominal pain, nausea, vomiting, diarrhea, and constipation, Back: Negative for injury and pain, : Negative for injury, bleeding, discharge, and swelling, MS/Extremity: Negative for injury and deformity, Skin: Negative for injury, rash, and discoloration, Psych: Negative for depression, anxiety, suicide ideation, homicidal ideation, and hallucinations, Allergy/Immunology: Negative for hives, rash, and allergies, Endocrine: Negative for neck swelling, polydipsia, polyuria, polyphagia, and marked weight changes, Hematologic/Lymphatic: Negative for swollen nodes, abnormal bleeding, and unusual bruising. 20:22 Cardiovascular: Positive for chest pain, palpitations. 20:22 Neuro: Positive for dizziness. Exam: 20:23 Constitutional: This is a well developed, well nourished patient who is awake, alert, kdr and in no acute distress. Head/Face: Normocephalic, atraumatic. Eyes: Pupils equal round and reactive to light, extra-ocular motions intact. Lids and lashes normal. Conjunctiva and sclera are non-icteric and not injected. Cornea within normal limits. Periorbital areas with no swelling, redness, or edema. Neck: Trachea midline, no thyromegaly or masses palpated, and no cervical lymphadenopathy. Supple, full range of motion without nuchal rigidity, or vertebral point tenderness. No Meningismus. Chest/axilla: Normal chest wall appearance and motion. Nontender with no deformity. No lesions are appreciated. Cardiovascular: Regular rate and rhythm with a normal S1 and S2. No gallops, murmurs, or rubs. Normal PMI, no JVD. No pulse deficits. Respiratory: Lungs have equal breath sounds bilaterally, clear to auscultation and percussion. No rales, rhonchi or wheezes noted. No increased work of breathing, no retractions or nasal flaring. Abdomen/GI: Soft, non-tender, with normal bowel sounds. No distension or tympany. No guarding or rebound. No evidence of tenderness throughout. Back: No spinal tenderness. No costovertebral tenderness. Full range of motion. Skin: Warm, dry with normal turgor. Normal color with no rashes, no lesions, and no evidence of cellulitis. MS/ Extremity: Pulses equal, no cyanosis. Neurovascular intact. Full, normal range of motion. Neuro: Awake and alert, GCS 15, oriented to person, place, time, and situation. Cranial nerves II-XII grossly intact. Motor strength 5/5 in all extremities. Sensory grossly intact. Cerebellar exam normal. Normal gait. Psych: Awake, alert, with orientation to person, place and time. Behavior, mood, and affect are within normal limits. Vital Signs: 15:18 BP 122 / 91; Pulse 88; Resp 18; Temp 97.4; Pulse Ox 100% ; Weight 58.97 kg; Height 5 mb9 ft. 0 in. ; Pain 5/10; 17:00 BP 119 / 82; Pulse 81; Resp 18; Pulse Ox 100% on R/A; eh3 18:00 BP 121 / 82; Pulse 79; Resp 15; Pulse Ox 100% on R/A; eh3 15:18 Body Mass Index 25.39 (58.97 kg, 152.4 cm) mb9 15:18 Pain Scale: Adult mb9 MDM: 18:09 Patient medically screened. kdr 20:23 Data reviewed: vital signs, nurses notes, lab test result(s), radiologic studies. [facility] 09/20 15:32 Order name: Basic Metabolic Panel; Complete Time: 17:35 [facility] 09/20 15:32 Order name: CBC with Diff; Complete Time: 17:35 [facility] 09/20 15:32 Order name: D-Dimer; Complete Time: 17:35 [facility] 09/20 15:32 Order name: LFT's; Complete Time: 17:35 [facility] 09/20 15:32 Order name: Troponin HS; Complete Time: 17:35 [facility] 09/20 15:32 Order name: XRAY Chest (1 view); Complete Time: 17:35 kdr 09/20 15:32 Order name: EKG; Complete Time: 15:35 [facility] 09/20 15:32 Order name: Cardiac monitoring; Complete Time: 16:27 [facility] 09/20 15:32 Order name: EKG - Nurse/Tech; Complete Time: 16:28 kdr 09/20 15:32 Order name: IV Saline Lock; Complete Time: 16:28 [facility] 09/20 15:32 Order name: Labs collected and sent; Complete Time: 16:28 [facility] 09/20 15:32 Order name: O2 Per Protocol; Complete Time: 16:28 [facility] 09/20 15:32 Order name: O2 Sat Monitoring; Complete Time: 16:28 kdr Administered Medications: No medications were administered Disposition Summary: 09/20/22 18:09 Discharge Ordered Location: Home kdr Problem: an acute exacerbation kdr Symptoms: are resolved kdr Condition: Stable kdr Diagnosis - Palpitations kdr Followup: kdr - With: Private Physician - When: 2 - 3 days - Reason: If symptoms return, Further diagnostic work-up, Recheck today's complaints, Continuance of care, Re-evaluation by your physician Discharge Instructions: - Discharge Summary Sheet kdr - Nonspecific Chest Pain, Adult, Bsjr-[id number] kdr - Palpitations, [id number] kdr Forms: - Medication Reconciliation Form kdr - Thank You Letter kdr - Patient Portal Instructions kdr Signatures: Dispatcher [employer] EDTrell Andrew MD MD kdr Catrina Conley RN RN mb9
[2022-09-20 19:15] VITALS: TEMP 97.4; O2SAT 100
[2022-09-20 19:31] VITALS: BP 121/82
--- NOTE | 2022-09-23 13:09 | EKG ---
Test Date: 2022-09-20 Test Time: 16:22:52 Credit Coordinator: JORI MEASUREMENT RESULTS: Intervals: Rate: 83 MT: 162 QRSD: 86 QT: 402 QTc: 472 Abell: P: 65 MT: 162 QRS: 40 T: 28 INTERPRETIVE STATEMENTS: Normal sinus rhythm Cannot rule out Anterior infarct, age undetermined Abnormal ECG Compared to ECG 09/20/2022 16:20:32 No significant changes Electronically Signed On 09-23-22 13:06:38 CDT by Elias Ding
== END 2022-09-20 18:30 | disposition home or self-care (01) ==
LOC: ER 14:42
DX: R00.2 Palpitations (principal); R07.89 Other chest pain; R42 Dizziness and giddiness
CPT/HCPCS: 36415; 71045; 80048; 80076; 84484; 85025; 85379; 93005; 99284

== ENCOUNTER 2022-11-03 16:48 | Emergency (ER) | payer SELFPAY ==
--- OUTSIDE RECORDS SUMMARY | 2022-11-03 17:16 | XMS REPORT | Continuity of Care Document ---
:1990 Author Organization [facility] Address [address] [place] [address] [place] [id number] Care Team Providers Name Role Phone ANEL METZ Primary Care Physician Unavailable GHISLAINE SAMUEL Attending Clinician Unavailable Provider, Wang Duttap Attending Clinician Unavailable Ghislaine Samuel PA-C Attending Clinician Doctor Unassigned, [place] Attending Clinician Unavailable DAKOTA VALENZUELA Attending Clinician Unavailable TERRANCE ALICEA Attending Clinician Unavailable Terrance Alicea DDS Attending Clinician Joao Babcock DO Attending Clinician Anel Cisneros Attending Clinician ANEL METZ Attending Clinician Unavailable TERRANCE ALICEA Admitting Clinician Unavailable Terrance Alicea DDS Admitting Clinician Payers Payer Name Policy Type Policy Number Effective Date Expiration Date S [facility] [id number] 2018 00:00:00 Problems Condition Condition Condition Status [...] ity of 25.0-29.9) 25.0-29.9) [place] [facility] Nexplanon Nexplanon Disease Active 2021-[address] in place 1 ity of 00:00: [place] 00 [facility] Submandibu Submandibu Disease Active 2020-02 U nivers lar lar 1-07 ity of abscess abscess 00:00: [place] 00 [facility] Cervical Cervical Disease Active Overview: Un nancy [...] glucose 2-13 ity of 00:00: [place] 00 [facility] Abnormal Abnormal Disease Active Unive rs maternal maternal 2-12 ity of glucose glucose 00:00: [place] tolerance, tolerance, 00 Me dical antepartum antepartum Br anch History of History of Disease Active 2018- U nivers gestationa gestationa 2-11 it y of l diabetes l diabetes 00:[place] [facility] History of History of Disease Active U nivers pre-eclamp pre-eclamp 2-11 it y of blanca in bl[place] in 00:00: [place] prior prior 00 Medical , , Br anch currently currently Multiparit Multiparit Disease Active U nivers y y 2-11 ity of 00:00: [place] 00 [facility] Diet Diet Disease Active Overview: [facility] [place] [facility] controlled controlled 4-10 A2GDM- it y of gestationa gestationa 00:00: glybnurid [facility] diabetes l diabetes 00 e 2.5 mg Medical mellitus mellitus Q am and Bran ch (GDM) in (GDM) in 5 mg Q pm second second trimester trimester High risk High risk Disease Active 2014-02 Uni vers , , 1-15 [place] [address] [place] [address] Allergies, Adverse Reactions, Alerts Allergy Allergy Status Severity Reaction(s) Onset Inactive Treating Comm ents Source Name Type Date Date Clinician No Known DA Active [facility] Allergie 06-09 [facility] 00:00: [address] NO KNOWN Drug Active [facility] ALLERGIE Class ity of [facility] Social History Social Habit Start Date Stop Date Quantity Comments Source Exposure to 2021-12-12 2021-12-22 Not sure [facility] SARS-CoV-2 00:00:00 12:38:00 [facility] [place] [facility] (event) [place] Tobacco use and 2021-12-22 2021-12-22 Smokeless tobacco Un iversity of exposure 00:00:00 00:00:00 non-user [facility] Alcohol intake 2021-12-22 2021-12-22 0 /d [facility] 00:00:00 00:00:00 [facility] Tobacco Comment 2021-12-22 2021-12-22 smokes 3 Universit y of 00:00:00 00:00:00 cigarettes per [facility] [place] day. pt states she Branch stopped smoking since she found out about . History of 2014-12-22 Cigarette Smoker Universi ty of tobacco use 00:00:00 [facility] Sex Assigned At [birth year] Universit y of 00:00:00 00:00:00 [facility] Smoking Status Start Date Stop Date Source Smokes tobacco daily 2021-12-22 00:00:00 Univers ity of [facility] Medications Ordered Filled Start Stop Current Ordering Indication Dosage Frequency Signature Comments Components Source Medication Medication Date Date Medication? Clinician (SIG) Name Name etonogestre 2021-02- No [id number] 68mg Univers L 02-21 ity of (NEXPLANON) 19:15: 18:35 [place] implant 68 00 :00 Medical Branch etonogestre 2021-02- No [id number] 68mg 68 mg, Univers L 02-21 Subdermal, ity of (NEXPLANON) 19:15: 18:35 ONCE NOW, [place] implant 68 00 :00 1 dose, On Med ical mg Sat [place] 12/22/21 at 1415, Routine
Use approved by: GUN TESTER etonogestre 2021-02- No [id number] 68mg Univers L 02-2105 ity of (NEXPLANON) 19:15: 18:35 [place] implant 68 00 :00 Medical mg Branch etonogestre 2021-02- No [id number] 68mg 68 mg, Univers L 02-21 Subdermal, ity of (NEXPLANON) 19:15: 18:35 ONCE NOW, [place] implant 68 00 :00 1 dose, On Med ical mg [facility] 12/22/21 at 1415, Routine
Use approved by: GUN TESTER insulin 2021-02 Yes inject Univers degludec 1-05 under the ity of (TRESIBA 12:59: skin. [place] U-100 59 Medical INSULIN SC) Branch insulin 2021-02 Yes inject Univers degludec 1-05 under the ity of (TRESIBA 12:59: skin. [place] U-100 59 Medical INSULIN SC) Branch dapaglifloz [...] route for 30 days. cephALEXin 2021-02- No [id number] 500mg Take 1 Univers (KEFLEX) 02-21 capsule by ity of 500 mg 00:00: 05:59 mouth 4 [place] capsule 00 :00 (four) Medical times [place] daily for 7 days. cephALEXin 2021-02- No [id number] 500mg Take 1 Univers (KEFLEX) 02-21 capsule by ity of 500 mg 00:00: 05:59 mouth 4 [place] capsule 00 :00 (four) Medical times [place] daily for 7 days. ARIPiprazol Yes TAKE ONE Un nancy e 2 mg 9- (1) ity of tablet 00:00: TABLET(S) 00 BY MOUTH Medical IN THE [place] MORNING. ARIPiprazol Yes TAKE ONE Un nancy e 2 mg 9- (1) ity of tablet 00:00: TABLET(S) 00 BY MOUTH Medical IN THE [place] MORNING. dapaglifloz 2020-02 Yes Xigduo XR U [...] dapaglifloz 2020-02 Yes [facility] ity of n (XIGDUO 17:25: [...] 00 First dose Medical (HumaLOG) + on [facility] Fsbg 12/24/20 at Testing 0800, Until Discontinu ed, Routine lactated 2020-02 Yes 1000mL at 50 Univer s ringers IV 1-07 mL/hr, ity of infusion 07:30: 1,000 [place], [place] 1[place]000 [place] 00 IV Medical Infusion, Branch CONTINUOUS , Starting on [place] 12/24/20 at 0130, Until Discontinu ed, Routine naloxone 2020-02 Yes .1mg 0.1 mg, Univer s (NARCAN) 1-07 Slow IV ity of injection 07:21: Push, PRN Negro as 0.1 mg 11 - SEE Medical INSTRUCTIO [place] NS, Starting on [place] 12/24/20 at 0121, Until Discontinu ed, Routine, Sedation/R espiratory Depression , See admin instructio ns. morpHINE 2020-02- No 2mg 2 mg, Slow Un nancy injection 2 07 11-09 IV Push, ity of mg 07:21: 07:20 Q3HPRN, [place] 11 :11 Starting Medical on [facility] 12/24/20 at 0121, Until 12/26/20 at 0120, Routine, Pain (scale 7-10) HYDROcodone 2020-02 Yes 1{tbl} 1 tablet, Univers -acetaminop 1-07 Oral, ity of hen (NORCO 07:21: Q6HPRN, [place] 5) 5-325 mg 10 Starting Medi aleksey tablet 1 on [facility] tablet 12/24/20 at 0121, Until Discontinu ed, Routine, Pain (scale 4-6) ibuprofen 2020-02 Yes 600mg 600 mg, Univ ers (ADVIL 1-07 Oral, ity of CHILDREN'S) 07:21: Q6HPRN, Negro as 100 mg/5 mL 04 Starting Medi aleksey oral on [facility] suspension 12/24/20 at 600 mg 0121, Until Discontinu ed, Routine, Pain (scale 1-3) ondansetron 2020-02 Yes 4mg 4 mg, Slow Univers (ZOFRAN 1-07 IV Push, ity of (PF)) 07:20: Q4HPRN, [place] injection 4 54 Starting Medi aleksey mg on [place] Branch 12/24/20 at 0120, Until Discontinu ed, Routine, Nausea and Vomiting (N/V) chlorhexidi 2020-02 Yes [id number] 15mL Swish and Univers ne 0.12 % 1-07 spit out ity of mouthwash 00:00: 15 mL 2 [place] 00 (two) Medical times Branch daily. ibuprofen 2020-02 Yes [id number] 600mg Take 30 mL Univers 100 mg/5 mL 1-07 by mouth ity of oral 00:00: every 6 [place] suspension 00 (six) Medical hours as Branch needed for Pain (scale 1-3). chlorhexidi 2020-02 Yes [id number] 15mL Swish and Univers ne 0.12 % 1-07 spit out ity of mouthwash 00:00: 15 mL 2 [place] 00 (two) Medical times Branch daily. ibuprofen 2020-02 Yes [id number] 600mg Take 30 mL Univers 100 mg/5 mL 1-07 by mouth ity of oral 00:00: every 6 [place] suspension 00 (six) Medical hours as Branch needed for Pain (scale 1-3). chlorhexidi 2020-02 Yes [id number] 15mL Swish and Univers ne 0.12 % 1-07 spit out ity of mouthwash 00:00: 15 mL 2 [place] 00 (two) Medical times Branch daily. ibuprofen 2020-02 Yes [id number] 600mg Take 30 mL Univers 100 mg/5 mL 1-07 by mouth ity of oral 00:00: every 6 [place] suspension 00 (six) Medical hours as Branch needed for Pain (scale 1-3). chlorhexidi 2020-02 No [id number] 15mL Swish and Univers ne 0.12 % 02-23 11-05 spit out ity o f mouthwash 00:00: 00:00 15 mL 2 [place] 00 :00 (two) Medical times Branch daily. ibuprofen 2020-02- No [id number] 600mg Take 30 mL Univers 100 mg/5 mL 1-07 11-05 by mouth ity of oral 00:00: 00:00 every 6 [place] suspension 00 :00 (six) Medical hours as Branch needed for Pain (scale 1-3). chlorhexidi 2020-02- No [id number] 15mL Swish and Univers ne 0.12 % 02-23 spit out ity o f mouthwash 00:00: 00:00 15 mL 2 [place] 00 :00 (two) Medical times Branch daily. ibuprofen 2020-02- No [id number] 600mg Take 30 mL Univers 100 mg/5 [...] Indication s: acute pain amoxicillin 2020-02- No [id number] 1{tbl} Take 1 Univers -clavulanat 02-23 tablet by it y of e 00:00: 05:59 mouth 2 [place] (AUGMENTIN) 00 :00 (two) Medical 875-125 mg times Branch per tablet daily for 7 days. Blood-Gluco Yes [id number] Use as Univers se Meter 2-18 directed ity of (FREESTYLE 00:00: [place] LITE METER) 00 Medical Kit Branch blood sugar Yes [id number] Use as Univers diagnostic 2-18 directed ity o f (FREESTYLE 00:00: [place] LITE 00 Medical STRIPS) Branch strip lancets 17 Yes [id number] Use as U nivers gauge Misc 2-18 directed ity o f 00:00: [place] 00 Medical Branch Blood-Gluco Yes [id number] Use as Univers se Meter 2-18 directed ity of (FREESTYLE 00:00: [place] LITE METER) 00 Medical Kit Branch blood sugar Yes [id number] Use as Univers diagnostic 2-18 directed ity o f (FREESTYLE 00:00: [place] LITE 00 Medical STRIPS) Branch strip lancets 17 Yes [id number] Use as U nivers gauge Misc 2-18 directed ity o f 00:00: [place] 00 Medical Branch Blood-Gluco 2019-0 Yes [id number] Use as Univers se Meter 2-18 directed ity of (FREESTYLE 00:00: [place] LITE METER) 00 Medical Kit Branch lancets 17 2018-0 Yes [id number] Use as U nivers gauge Misc 2-18 directed ity o f 00:00: [place] 00 Medical Branch Blood-Gluco 2019-0 Yes [id number] Use as Univers se Meter 2-18 directed ity of (FREESTYLE 00:00: [place] LITE METER) 00 Medical Kit Branch lancets 17 2018-0 Yes [id number] Use as U nivers gauge Misc 2-18 directed ity o f 00:00: [place] 00 Medical Branch Blood-Gluco 2019-0 Yes [id number] Use as Univers se Meter 2-18 directed ity of (FREESTYLE 00:00: [place] LITE METER) 00 Medical Kit Branch blood sugar 0 Yes [id number] Use as Univers diagnostic 2-18 directed ity o f (FREESTYLE 00:00: [place] LITE 00 Medical STRIPS) Branch strip lancets 17 2018-0 Yes [id number] Use as U nivers gauge Misc 2-18 directed ity o f 00:00: [place] 00 Medical Branch Blood-Gluco 2018-0 Yes [id number] Use as Univers se Meter 2-18 directed ity of (FREESTYLE 00:00: [place] LITE METER) 00 Medical Kit Branch blood sugar 2019-0 Yes [id number] Use as Univers diagnostic 2-18 directed ity o f (FREESTYLE 00:00: [place] LITE 00 Medical STRIPS) Branch strip lancets 17 2018-0 Yes [id number] Use as U nivers gauge Misc 2-18 directed ity o f 00:00: [place] 00 Medical Branch Blood-Gluco 2019-0 Yes [id number] Use as Univers se Meter 2-18 directed ity of (FREESTYLE 00:00: [place] LITE METER) 00 Medical Kit Branch blood sugar 2019-0 Yes [id number] Use as Univers diagnostic 2-18 directed ity o f (FREESTYLE 00:00: [place] LITE 00 Medical STRIPS) Branch strip lancets 17 2018-0 Yes [id number] Use as U nivers gauge Misc 2-18 directed ity o f 00:00: [place] 00 Medical Branch Blood-Gluco 2019-0 Yes [id number] Use as Univers se Meter 2-18 directed ity of (FREESTYLE 00:00: [place] LITE METER) 00 Medical Kit Branch blood sugar Yes [id number] Use as Univers diagnostic 2-18 directed ity o f (FREESTYLE 00:00: [place] LITE 00 Medical STRIPS) Branch strip lancets 17 Yes [id number] Use as U nivers gauge Misc 2-18 directed ity o f 00:00: [place] 00 Medical Branch Blood-Gluco Yes [id number] Use as Univers se Meter 2-18 directed ity of (FREESTYLE 00:00: [place] LITE METER) 00 Medical Kit Branch blood sugar Yes [id number] Use as Univers diagnostic 2-18 directed ity o f (FREESTYLE 00:00: [place] LITE 00 Medical STRIPS) Branch strip lancets 17 Yes [id number] Use as U nivers gauge Misc 2-18 directed ity o f 00:00: [place] 00 Medical Branch blood sugar 2021- No [id number] Use as Univers diagnostic 2-18 12-22 directed ity of (FREESTYLE 00:00: 00:00 [place] LITE 00 :00 Medical STRIPS) Branch strip blood sugar 2021- No [id number] Use as Univers diagnostic 2-18 12-22 directed ity of (FREESTYLE 00:00: 00:00 [place] LITE 00 :00 Medical STRIPS) Branch strip Yes [id number] 1{packe Take 1 Univers vit 2-12 t} Packet by ity of 33-iron-fol 00:00: mouth [place] ic-dha 00 daily. Medical (SELECT-OB Branch + DHA) 29 mg iron-1 mg -250 mg combo pack Yes [id number] 1{packe Take 1 Univers vit 2-12 t} Packet by ity of 33-iron-fol 00:00: mouth [place] ic-dha 00 daily. Medical (SELECT-OB Branch + DHA) 29 mg iron-1 mg -250 mg combo pack Yes [id number] 1{packe Take 1 Univers vit 2-12 t} Packet by ity of 33-iron-fol 00:00: mouth [place] ic-dha 00 daily. Medical (SELECT-OB Branch + DHA) 29 mg iron-1 mg -250 mg combo pack Yes [id number] 1{packe Take 1 Univers vit 2-12 t} Packet by ity of 33-iron-fol 00:00: mouth [place] ic-dha 00 daily. Medical (SELECT-OB Branch + DHA) 29 mg iron-1 mg -250 mg combo pack Yes [id number] 1{packe Take 1 Univers vit 2-12 t} Packet by ity of 33-iron-fol 00:00: mouth [place] ic-dha 00 daily. Medical (SELECT-OB Branch + DHA) 29 mg iron-1 mg -250 mg combo pack Yes [id number] 1{packe Take 1 Univers vit 2-12 t} Packet by ity of 33-iron-fol 00:00: mouth [place] ic-dha 00 daily. Medical (SELECT-OB Branch + DHA) 29 mg iron-1 mg -250 mg combo pack Yes [id number] 1{packe Take 1 Univers vit 2-12 t} Packet by ity of 33-iron-fol 00:00: mouth [place] ic-dha 00 daily. Medical (SELECT-OB Branch + DHA) 29 mg iron-1 mg -250 mg combo pack 2021- No [id number] 1{packe Take 1 Univers vit 2-12 11-05 t} Packet by ity of 33-iron-fol 00:00: 00:00 [place] ic-dha 00 :00 daily. Medical (SELECT-OB Branch + DHA) 29 mg iron-1 mg -250 mg combo pack 202- No [id number] 1{packe Take 1 Univers vit 2-12 11-05 t} Packet by ity of 33-iron-fol 00:00: 00:00 [place] ic-dha 00 :00 daily. Medical (SELECT-OB Branch + DHA) 29 mg iron-1 mg -250 mg combo pack Immunizations Ordered Filled Immunization Date Status Comments [facility] Immunization Name Name HPV9 2021-12-22 Completed University of 00:00:00 [facility] HPV9 2021-12-22 Completed University of 00:00:00 [facility] Influenza Virus 2020-04-28 Completed Universit y of Vaccine [place] .5 mL 00:00:00 [facility] 6+ MO Branch Influenza Virus 2020-04-28 Completed Universit y of Vaccine [place] .5 mL 00:00:00 [place] [facility] IM 6+ MO Branch Influenza Virus [...] y of Vaccine [place] .5 mL 00:00:00 [place] [facility] 6+ MO Branch HPV9 2016-11-06 Completed University of 00:00:00 [place] [facility] HPV9 2016-11-06 Completed University of 00:00:00 [place] [facility] HPV9 2016-11-06 Completed University of 00:00:00 [place] [facility] HPV9 2016-11-06 Completed University of 00:00:00 [place] [facility] HPV9 2016-11-06 Completed University of 00:00:00 [place] [facility] HPV9 2016-11-06 Completed University of 00:00:00 [place] [facility] HPV9 2016-11-06 Completed University of 00:00:00 [place] [facility] HPV9 2016-11-06 Completed University of 00:00:00 [place] [facility] HPV9 2016-11-06 Completed University of 00:00:00 [place] [facility] HPV9 2016-09-05 Completed University of 00:00:00 [place] [facility] HPV9 2016-09-05 Completed University of 00:00:00 [place] [facility] HPV9 2016-09-05 Completed University of 00:00:00 [place] [facility] HPV9 2016-09-05 Completed University of 00:00:00 [place] [facility] HPV9 2016-09-05 Completed University of 00:00:00 [place] [facility] HPV9 2016-09-05 Completed University of 00:00:00 [place] [facility] HPV9 2016-09-05 Completed University of 00:00:00 [place] [facility] HPV9 2016-09-05 Completed University of 00:00:00 [place] [facility] HPV9 2016-09-05 Completed University of 00:00:00 [place] [facility] TDAP 2015-05-25 Completed University of 00:00:00 [place] [facility] TDAP 2015-05-25 Completed University of 00:00:00 [place] [facility] TDAP 2015-05-25 Completed University of 00:00:00 [place] [facility] TDAP 2015-05-25 Completed University of 00:00:00 [place] [facility] TDAP 2015-05-25 Completed University of 00:00:00 [place] [facility] TDAP 2015-05-25 Completed University of 00:00:00 [place] [facility] TDAP 2015-05-25 Completed University of 00:00:00 [place] [facility] TDAP 2015-05-25 Completed University of 00:00:00 [place] [facility] TDAP 2015-05-25 Completed University of 00:00:00 [facility] Vital Signs Vital Name Observation Time Observation Value Comments Source Systolic blood 2021-12-22 17:38:00 119 mm[Hg] Univer sity of pressure [facility] Diastolic blood 2021-12-22 17:38:00 77 mm[Hg] Unive rsity of pressure [facility] Heart rate 2021-12-22 17:38:00 76 /min Universi ty [facility] [place] [facility] Body temperature 2021-12-22 17:38:00 35.83 [place] Univ ersity [facility] [place] [facility] Respiratory rate 2021-12-22 17:38:00 18 /[facility] height 2021-12-22 17:38:00 154.9 cm Universi ty [facility] [place] [facility] Body weight 2021-12-22 17:38:00 60.51 kg Universi ty [facility] [place] [facility] BMI 2021-12-22 17:38:00 25.21 kg/m2 Universi ty [facility] [place] [facility] Systolic blood 2020-12-24 17:05:00 125 mm[Hg] Univer sity of pressure [facility] Diastolic blood 2020-12-24 17:05:00 87 mm[Hg] Unive rsity of pressure [facility] Heart rate 2020-12-24 17:05:00 91 /min Universi ty [facility] [place] [facility] Body temperature 2020-12-24 17:05:00 36.22 [place] Univ ersity of [facility] Respiratory rate 2020-12-24 17:05:00 18 /min Univ ersity of [facility] Oxygen saturation in 2020-12-24 17:05:00 98 /min University Arterial blood by [facility] [place] Pulse oximetry Branch Body weight 2020-12-24 06:32:00 68.04 kg Universi ty of [place] [facility] BMI 2020-12-24 06:32:00 28.34 kg/m2 Universi ty of [facility] [place] [facility] Branch Systolic blood 2020-04-28 16:31:00 106 mm[Hg] Univer sity of pressure [place] [facility] Diastolic blood 2020-04-28 16:31:00 73 mm[Hg] Unive rsity of pressure [place] [facility] [place] Heart rate 2020-04-28 16:31:00 77 /min Universi ty of [facility] Body temperature 2020-04-28 16:31:00 36.72 [place] Univ ersity of [facility] Respiratory rate 2020-04-28 16:31:00 16 /min Univ ersity of [facility] Body height 2020-04-28 16:31:00 154.9 cm Universi ty of [place] [facility] [place] Body weight 2020-04-28 16:31:00 59.081 kg Universi ty of [place] [facility] BMI 2020-04-28 16:31:00 24.61 kg/m2 Universi ty of [place] [facility] Systolic blood 2020-04-28 16:31:00 106 mm[Hg] Univer sity of pressure [place] [facility] Diastolic blood 2020-04-28 16:31:00 73 mm[Hg] Unive rsity of pressure [facility] Heart rate 2020-04-28 16:31:00 77 /min Universi ty of [place] [facility] [place] Body temperature 2020-04-28 16:31:00 36.72 [place] Univ ersity of [facility] [place] [facility] Branch Respiratory rate 2020-04-28 16:31:00 16 /min Univ ersity of [facility] Body height 2020-04-28 16:31:00 154.9 cm Universi ty of [place] [facility] Body weight 2020-04-28 16:31:00 59.081 kg Universi ty of [place] [facility] BMI 2020-04-28 16:31:00 24.61 kg/m2 Universi ty of [place] [facility] Procedures Procedure Date / Time Performed Performing Clinician Sour e POCT TEST 2021-12-22 17:49:00 Ghislaine Samuel [facility] GARDASIL 9 (HPV 9V) 2021-12-22 17:48:52 Ghislaine Samuel [facility] VACCINE [facility] ASSIGNMENT OF BENEFITS 2021-12-22 17:24:31 Doctor Unassigned, No General acute hospital EXTERNAL PROVIDER 2021-01-02 06:01:00 Doctor Unassigned, No [facility] POCT GLUCOSE 2020-12-24 14:10:00 [facility] (AUTOMATED) [facility] ASSIGNMENT OF BENEFITS 2020-04-28 17:41:20 Doctor Unassigned, No General acute hospital FLU VACC ([id number]), 2020-04-28 17:21:26 Anel Metz [facility] 6+ MONTHS, IM, QUAD Medical Bran ch Encounters Start End Encounter Admission Attending Care Care Encounter Source Date/Time Date/Time Type Type Clinicians Facility Department ID 2021-12-22 2021-12-22 Outpatient R JIMMIE [facility] [id number] [facility] 12:45:00 13:22:01 GHISLAINE valdez [facility] [place] [facility] 2021-12-22 2021-12-22 Office [facility] [id number] Univers 12:45:00 13:22:01 Visit Ghislaine Samuel GUN TESTER [id number] ity [facility] [id number] Negro as MATERNAL [id number] Med ical & CHILD [address] [place] [address] 2021-12-22 2021-12-22 Orders Doctor CHRISTIANSON [id number] Univers 00:00:00 00:00:00 Only UnassignedGIL [id number] ity of [facility] [id number] Negro as [id number] [address] 2021-01-02 2021-01-02 Orders Doctor CHRISTIANSON [id number] Univers 00:00:00 00:00:00 Only Unassigned, GIL [id number] ity of [place] [facility] [id number] Negro as [id number] [facility] 009 Branch 2020 2020 Outpatient R DEANNE [facility] [id number] Univers 14:00:00 14:00:00 [facility] 2020-12-26 2020-12-26 Outpatient R DEANNE [facility] [id number] Univers 16:30:00 16:30:00 [facility] 2020-12-24 2020-12-24 Outpatient X DEANNE [facility] HERMILO [id number] Univers 01:34:00 17:25:00 [facility] 2020-12-24 2020-12-24 Emergency DIVINE [place] [id number] Univers 01:34:00 17:25:00 [facility] [id number] it y of [facility] [id number] Negro as [id number] [facility] 091 [place] 2020-05-09 2020-05-09 Patient Sadiq [facility] [id number] Univers 00:00:00 00:00:00 Outreach Joao PRIMARY [id number] i ty of [place] [facility] 4.2.7.2.686 [place] [id number] Md dical 388 [place] 2020-05-09 2020-05-09 Patient Sadiq [facility] [id number] 00:00:00 00:00:00 Outreach Joao PRIMARY [id number] [place] [facility] 4.2.7.2.686 PAVILLION [id number] 2020-04-28 2020-04-28 Office Isaías [facility] [id number] Univers 10:17:04 11:41:16 Visit Anel Munguia GUN TESTER [id number] [facility] [id number] Negro as MATERNAL [id number] Med ical & CHILD [address] [place] [address] 2020-04-28 2020-04-28 [facility] [id number] 10:17:04 11:41:16 Visit Anel Munguia GUN TE[employer] [id number] [facility] [id number] MATERNAL [id number] & CHILD 107 [facility] 2020-04-28 2020-04-28 [facility] [id number] [facility] 10:15:00 10:15:00 ANEL valdez o f [facility] 2020-04-28 2020-04-28 Orders Doctor SAMMY [id number] 00:00:00 00:00:00 Only Unassigned, [place]IL [id number] ity of [place] [facility] [id number] Negro as [id number] [address] Results Test Description Test Time Test Comments Results Result Comments Source POCT TEST 2021-12-22 17:50:00 Test Item Value Reference Range Interpretation Comme nts POCT PREG (test code = 1605) Negative On board controls acceptable with C Line (test code = 3574) Yes POCT PREG LOT # (test code = 3575) POCT PREG TEST DATE (test code = 3576) [id number] 17:50:00 Test Item Value Reference Range Interpretation Comments POCT PREG (test code = 1605) Negative On board controls acceptable with C Yes Line (test code = 3574) POCT PREG LOT # (test code = 3575) POCT PREG TEST DATE (test code = 3576) [facility] RT-PCR/[id number] 17:22:59 Test Item Value Reference Interpretation Comments Range SARS-CoV-2 NEGATIVE SEE NOTE SARS-CoV-2 RNA NOT INTERPRETATION DETECTEDNegat zelda (test code = 59352) results do not preclude SARS-C oV-2 infection [...] (test code = NASOP[place]: [place] [address]) Juliana Leeann Zahira l-Time RT-PCR. The exp [...] provided by met hod given in report:https:// www.[employer]com/clinic ians/cl ient-communicat ions/ Alternatively, see downloadable PD F fact sheet at:https://www. [employer]/COVID-19-R T-PCR UNLESS OTHERWIS E INDICATED, ALL TESTING PERFORMED [facility], [facility]. [address] [place] [address] KATI DIRECTOR: ERICK NEAL M.D. CLIA NUMBER [id number] CAP ACCREDITATION N O. [id number] POCT GLUCOSE (AUTOMATED)2020-12-24 14:12:21 Test Item Value Reference Range Interpretation Comments POCT GLU (test code = 6859970490) 212 mg/dL 70-110 H Lab Interpretation (test code = Abnormal 25499-1) [facility] 15:58:00 Test Item Value Reference Range Interpretation Comments GLUBED (test code = GLUBED) 148 mg/dL 65-110 H [id number] 10:51:00 Test Item Value Reference Range Interpretation Comments GLUBED (test code = GLUBED) 174 mg/dL 65-110 H [id number] 06:04:00 Test Item Value Reference Range Interpretation Comments GLUBED (test code = GLUBED) 83 mg/dL 65-110 N GLYCOSYLATED HEMOGLOBIN [id number] 04:40:00 Test Item Value Reference Range Interpretation [...] H (test code = MBG) COMPREHENSIVE METABOLIC [id number] 04:40:00 Test Item Value Reference Range Interpretation [...] fructosaminesho uld be considered for these patients. [id number] 00:14:00 Test Item Value Reference Range Interpretation Comments GLUBED (test code = GLUBED) 194 mg/dL 65-110 H COMPREHENSIVE METABOLIC [id number] 21:06:00 Test Item Value Reference Range Interpretation [...] (HA1C) (test code = GLYHGB) CBC W/AUTO [id number] 20:53:00 Test Item Value Reference Range Interpretation [...] (test NORMAL NORMAL code = PLTMR) URINALYSIS [id number] 20:08:00 Test Item Value Reference Range Interpretation [...] #/hpf NONE SEEN A URINE SAMPLE: CLEAN [id number] 20:01:00 Test Item Value Reference Range Interpretation Comments GLUBED (test code = GLUBED) 196 mg/dL 65-110 H URINALYSIS [id number] 19:53:00 Test Item Value Reference Range Interpretation [...] Notes Date/Time Note Provider Source 2018-06-17 17:42:00-00:00 [id number] [facility] [address] [address] PATIENT NAME: AILYN MCCOY ADMIT DATE: 06/09/18 ACCOUNT NO: [id number] ROOM NO: 3026 AGE: 27 SEX: F ADMITTING PHYSICIAN: Richard Bojorquez MD ATTENDING PHYSICIAN: Richard Bojorquez MD ADMISSION DATE: 06/09/2018 TRIAGE EVALUATION Admission to APU for observation. For evaluation on 06/09/[address] Kathy Corona. The patient was seen i n the MAC unit as no doc patient, then admitted for obs with Dr. Bjoorquez accepting the patient's care . HISTORY OF [...] her Touje[place]. Now on arrival in the [facility], her blood glucose level is 196. She [...] ounces. In addition to the se conroy [facility], she also had diet-controlled PATIENT NAME: AILYN [...] her baby. She has no information on nh s health. She states she drinks 4 to 6 beers per weekend and she states t hat she lost her significant other, when he suddenly she was very sad and she was drinking heavily at a one night stand and which resulted in this pregn mari. She was working at [employer], doing [employer] and lifting approximately 40-pound weight, but no [...] insulin slidin g scale. Nutritional consult and assistant health educator will see the patient in th [...] also strongly encouraged to quit smoking altogether. front desk worker consult is requested. Dictated By: Kathy Corona MD WT: HP:JERRY/BIANCAI/NTS Conf#: [id number]/DID#: [id number] Authenticated and Edited by Kathy Corona MD On 07/08/18 8:40:30 AM Electronically Signed by Kathy Corona MD on at 0843 PATIENT NAME: AILYN MCCOY 78 2018-06-10 14:02:00-00:00 [facility] OB Disch Undelivered REPORT#:[id number] REPORT STATUS: Signed DATE:06/10/18 TIME: 1402 PATIENT: AILYN MCCOY UNIT #: [id number] ROOM/BED: [address] : 90 AGE: 27 SEX: F ATTEND: Richard Bojorquez MD ADM AUTHOR: Richard Bojorquez MD * ALL edits or amendments must be made on the [employer]/computer document * Subjective Subjective Patient reports: Patient reports: No: complaints. Comments: PLZ SEE NOTE EARLIER, I SAW HER EARLIER Objective General VS: Last Documented: Result Date Time B/P Mean 73.0 06/10 0905 B/P 101/58 06/10 09 Temp 97.6 06/10 09 Pulse 77 06/10 0905 Resp 18 06/10 09 Vital Signs Date Temp Pulse Resp B/P B/P Mean Pulse Ox FiO2 06/09-04/24 97.6-98.3 77-94 18 101-112/58-69 73 .0-85.0 Physical [...] Bojorquez MD on 06/10 at 1404 RPT #:[id number] END OF REPORT 2018-06-10 14:02:00-00:00 [facility] OB Disch Undelivered REPORT#:[id number] REPORT STATUS: Signed DATE:06/10/18 TIME: 1402 PATIENT: AILYN MCCOY UNIT #: [id number] ROOM/BED: [address] : 90 AGE: 27 SEX: F ATTEND: Richard Bojorquez MD ADM AUTHOR: Richard Bojorquez MD * ALL edits or amendments must be made on the [employer]/computer document * See Addendum Subjective Subjective Patient [...] Bojorquez MD on 06/10 at 1412 RPT #:[id number] END OF REPORT 2018-06-10 13:15:00-00:00 [facility] OB Admission / H P REPORT#:[id number] REPORT STATUS: Signed DATE:06/10/18 TIME: 1315 PATIENT: AILYN MCCOY UNIT #: [id number] ROOM/BED: 3026-A : 90 AGE: 27 SEX: F ATTEND: Richard Bojorquez MD ADM AUTHOR: Richard Bojorquez MD * ALL edits or amendments must be made on the [employer]/computer document * OB Admission H P Hx [...] Bojorquez MD on 06/10 at 1324 RPT #:[id number] END OF REPORT
[2022-11-03] MEDS ORDERED: KETOROLAC 30 MG/ML INJ ONE (17:53)
[2022-11-03 17:55] LABS: Absolute Lymphocytes (CBC) 1.8 K/uL (0.7-4.9); Hematocrit 35.7 % (36.0-45.0); Lymphocytes % 26.8 % (15.3-44.8); MCV 79.8 fL (80-100); MPV 8.6 fL (7.6-11.3); Platelets 431 thou/uL (152-406); RBC Red Blood Cell Count 4.48 M/uL (3.86-4.86)
--- NOTE | 2022-11-03 17:56 | RAD REPORT ---
EXAM DESCRIPTION: RAD - Foot Left 3 View - 11/03/2022 5:48 pm CLINICAL HISTORY: PAIN COMPARISON: No comparisons TECHNIQUE: Left foot, 3 views. FINDINGS: No fracture, dislocation or periosteal reaction. No air or foreign body in the soft tissues. IMPRESSION: Negative left foot radiographs.
[2022-11-03] MEDS ORDERED: NA CHLORIDE 0.9% 1,000 ML ONE (18:08)
[2022-11-03] MEDS ORDERED: INSULIN -REGULAR HUMAN 50 UNIT/0.5 ML ML ONE (18:08)
[2022-11-03 18:14] LABS: Specific Gravity > 1.030 (1.005-1.030); Urine Bacteria None Seen /HPF (<20); Urine Bilirubin NEGATIVE (Negative); Urine Blood Negative (Negative); Urine Clarity Clear (Clear); Urine Color Colorless (Yellow); Urine Glucose 4+ (Over) (Negative); Urine Protein NEGATIVE (Negative); Urine RBC <5 /HPF (None Seen); Urine Urobilinogen Normal (Normal); Urine pH 5.5 (5.0-7.0)
[2022-11-03 18:15] LABS: Potassium 3.7 mEq/L (3.5-5.1)
[2022-11-03 18:19] LABS: Specific Gravity > 1.030 (1.005-1.030)
--- NOTE | 2022-11-03 19:30 | EDPHYS ---
Physician Documentation [facility] Name: Harriett Gillette Age: 31 yrs Sex: Female : 1990 Arrival Date: 11/03/2022 Time: 16:48 Bed 4 Private MD: ED Physician Navarro Jhaveri HPI: 11/03 17:25 This 31 yrs old Female presents to ER via Wheelchair with complaints of Foot cp Pain - left. 11/02 17:25 The complaints affect the dorsum of left foot. cp 11/03 17:25 The patient presents with pain, that is acute. cp 17:25 Context: resulted from an unknown cause, the patient can partially bear weight, the cp patient is able to ambulate, with moderate difficulty, Problem is a result from a previous injury: No. Onset: The symptoms/episode began/occurred yesterday. Associated signs and symptoms: Pertinent positives: swelling, numbness of toes, Pertinent negatives calf tenderness, fever, injury. Treatment prior to arrival includes: no previous treatment. Historical: - Allergies: 17:31 Codeine; ko1 17:31 Hydrocodone-Acetaminophen; ko1 - Home Meds: 17:31 Metformin Oral [Active]; Tresiba FlexTouch U-100 subcutaneous [Active]; ko1 - PMHx: 17:31 Diabetes - IDDM; GESTATIONAL DM; heart valve dysfunction; Pre-eclampsia; ko1 - PSHx: 17:31 Appendectomy; ko1 - Immunization history:: Adult Immunizations unknown. - Social history:: Smoking status: Patient denies any tobacco usage or history of. ROS: 17:30 MS/extremity: Positive for pain, paresthesias, of the dorsum of left foot, Negative for cp injury or acute deformity, decreased range of motion. 17:30 Constitutional: Negative for body aches, chills, fever, poor PO intake. cp 17:30 Respiratory: Negative for cough, shortness of breath, wheezing. 17:30 Abdomen/GI: Negative for abdominal pain, nausea, vomiting, and diarrhea. 17:30 Back: Negative for pain at rest, pain with movement. 17:30 Skin: Negative for cellulitis, rash. 17:30 Neuro: Positive for numbness, of the toes of left foot. 17:30 All other systems are negative. Exam: 17:35 Constitutional: The patient appears in no acute distress, alert, awake, non-toxic, well cp developed, well nourished, uncomfortable. 17:35 Head/Face: Normocephalic, atraumatic. cp 17:35 Chest/axilla: Inspection: normal. 17:35 Cardiovascular: Rate: normal. 17:35 Respiratory: the patient does not display signs of respiratory distress, Respirations: normal, no use of accessory muscles, no retractions. 17:35 Musculoskeletal/extremity: Extremities: grossly normal except: noted in the dorsum of left foot: pain, marked tenderness proximal web space of second and third toes with mild swelling, no erythema noted, skin intact, Perfusion: the extremity is normally perfused throughout. Vital Signs: 17:26 BP 112 / 83; Pulse 89; Resp 18; Temp 97; Pulse Ox 97% ; ko1 18:04 BP 110 / 81; Pulse 87; Resp 16; Pulse Ox 100% ; ko1 19:17 BP 114 / 86; Pulse 97; Resp 18 S; Pulse Ox 100% on R/A; as6 19:25 Height 5 ft. 4 in. ; jw7 MDM: 17:24 Patient medically screened. cp 19:44 Data reviewed: vital signs, nurses notes, lab test result(s), radiologic studies, plain cp films. 19:44 Differential diagnosis: closed fracture, contusion, neuropathy. I considered the cp following discharge prescriptions or medication management in the emergency department Medications were administered in the Emergency Department. See MAR. Care significantly affected by the following chronic conditions: Diabetes. Counseling: I had a detailed discussion with the patient and/or guardian regarding the historical points, exam findings, and any diagnostic results supporting the discharge/admit diagnosis, lab results, radiology results, the need for outpatient follow up, for definitive care, a family practitioner, to return to the emergency department if symptoms worsen or persist or if there are any questions or concerns that arise at home. Response to treatment: the patient's symptoms have markedly improved after treatment, and as a result, I will discharge patient. 11/03 17:33 Order name: BMP; Complete Time: 18:44 cp 11/03 17:33 Order name: CBC with Diff; Complete Time: 18:44 cp 11/03 17:33 Order name: Urinalysis W/Microscopic; Complete Time: 18:44 cp 11/03 17:33 Order name: PREGU; Complete Time: 18:44 cp 11/03 17:42 Order name: Glucose, Ancillary Testing; Complete Time: 17:46 EDMS 11/03 17:46 Interpretation: Abnormal: GLUC,ANCIL 462. cp 11/03 19:29 Order name: Glucose, Ancillary Testing; Complete Time: 19:44 EDMS 11/03 19:44 Interpretation: Reviewed. cp 11/03 17:17 Order name: XRAY Foot LEFT 3 View; Complete Time: 18:44 cp 11/03 17:17 Order name: Accucheck Blood Glucose; Complete Time: 17:25 cp 11/03 17:33 Order name: IV; Complete Time: 17:50 cp 11/03 19:13 Order name: Accucheck Blood Glucose; Complete Time: 19:17 cp 11/03 19:16 Order name: Crutches; Complete Time: 19:45 cp Administered Medications: 17:50 Drug: Ketorolac IVP 15 mg Route: IVP; Site: left antecubital; ko1 19:25 Follow up: Response: No adverse reaction jw7 17:57 Drug: Insulin Regular Human IVP 10 units {Co-Signature: rs5 (Brian Ca RN).} Route: ko1 IVP; Site: left antecubital; 19:25 Follow up: Response: No adverse reaction jw7 17:57 Drug: NS 0.9% IV 1000 ml Route: IV; Rate: 1 bolus; Site: left antecubital; ko1 19:25 Follow up: Response: No adverse reaction; IV Status: Completed infusion; IV Intake: jw7 1000ml Point of Care Testing: Blood Glucose: 19:17 Blood Glucose: 197 mg/dL; as6 Ranges: Critical Glucose Levels:Adult <50 mg/dl or >400 mg/dl <40 mg/dl or >180 mg/dl Disposition: 11/04 15:46 Co-signature as Attending Physician, Navarro Jhaveri I agree with the assessment ci and plan of care. I reviewed the patient's care provided by the Advanced Practice Provider and agree with the diagnosis and treatment plan. Disposition Summary: 11/03/22 19:29 Discharge Ordered Location: Home cp Problem: new cp Symptoms: have improved cp Condition: Stable cp Diagnosis - Pain in left foot cp - Diabetes mellitus due to underlying condition with hyperglycemia cp Followup: cp - With: Private Physician - When: 2 - 3 days - Reason: Recheck today's complaints Discharge Instructions: - Discharge Summary Sheet cp - Hyperglycemia cp - Blood Glucose Monitoring, Adult cp - Diabetes Mellitus and Nutrition, Adult cp - Foot Pain cp - Form - Return To Work cp Forms: - Medication Reconciliation Form cp - Thank You Letter cp - Antibiotic Education cp - Prescription Opioid Use cp - Patient Portal Instructions cp - Leadership Thank You Letter cp - Work release form jw7 Prescriptions: - Tresiba FlexTouch U-100 100 unit/mL (3 mL) Subcutaneous Insulin Pen - inject 15 unit by SUBCUTANEOUS route once; 3 unit; Refills: 0, Product cp Selection Permitted - Metformin 500 mg Oral Tablet - take 1 tablet by ORAL route once daily for 7 days Then take 1 tablet with cp morning meals AND evening meals; 21 tablet; Refills: 0, Product Selection Permitted - Diclofenac Sodium 75 mg Oral Tablet Sustained Release - take 1 tablet by ORAL route 2 times per day; 30 tablet; Refills: 0, Product cp Selection Permitted Signatures: Dispatcher [employer] EDMS Jalil Stockton PA PA cp Lauren Bose, RN RN ko1 Navarro Jhaveri Jodi RN jw7 Brian Ca RN rs5 Corrections: (The following items were deleted from the chart) 14:40 0916 17:25 This 31 yrs old Female presents to ER via Wheelchair with cp complaints of Foot Pain - left. cp 11/04 14:40 0916 17:25 The patient presents with pain, that is acute, cp cp
--- NOTE | 2022-11-03 19:30 | ER ---
Nurse's Notes [facility] Name: Harriett Gillette Age: 31 yrs Sex: Female : 1990 Arrival Date: 11/03/2022 Time: 16:48 Bed 4 Private MD: Diagnosis: Pain in left foot;Diabetes mellitus due to underlying condition with hyperglycemia Presentation: 11/03 17:26 Chief complaint: Patient states: foot pain since last night. 3rd toe had a knot ko1 develop, can put pressure on heel and side of foot but not toes. Coronavirus screen: At this time, the client does not indicate any symptoms associated with coronavirus-19. Ebola Screen: No symptoms or risks identified at this time. Initial Sepsis Screen: Does the patient meet any 2 criteria? No. Patient's initial sepsis screen is negative. Does the patient have a suspected source of infection? No. Patient's initial sepsis screen is negative. Risk Assessment: Do you want to hurt yourself or someone else? Patient reports no desire to harm self or others. Onset of symptoms was November 02, 2022 at 20:00. 17:26 Method Of Arrival: Wheelchair ko1 17:26 Acuity: TIFFANIE 4 ko1 Triage Assessment: 17:31 General: Appears in no apparent distress. Behavior is calm, cooperative, appropriate ko1 for age. Pain: Complains of pain in left foot. Historical: - Allergies: 17:31 Codeine; ko1 17:31 Hydrocodone-Acetaminophen; ko1 - Home Meds: 17:31 Metformin Oral [Active]; Tresiba FlexTouch U-100 subcutaneous [Active]; ko1 - PMHx: 17:31 Diabetes - IDDM; GESTATIONAL DM; heart valve dysfunction; Pre-eclampsia; ko1 - PSHx: 17:31 Appendectomy; ko1 - Immunization history:: Adult Immunizations unknown. - Social history:: Smoking status: Patient denies any tobacco usage or history of. Screenin:04 [facility] ED Fall Risk Assessment (Adult) History of falling in the last 3 months, ko1 including since admission No falls in past 3 months (0 pts) Confusion or Disorientation No (0 pts) Intoxicated or Sedated No (0 pts) Impaired Gait No (0 pts) Mobility Assist Device Used No (0 pt) Altered Elimination No (0 pt) Score/Fall Risk Level 0 - 2 = Low Risk Oriented to surroundings, Maintained a safe environment, Educated pt \T\ family on fall prevention, incl call for assistance when getting out of bed, Assessed \T\ reinforced patient's understanding of fall precautions, Provided non-skid footwear, Hourly rounding (assess needs \T\ fall precautionary measures) done, Used ambulatory aids as needed (educated on \T\ assisted with), Used gait belt as appropriate. Abuse screen: Denies threats or abuse. Denies injuries from another. Nutritional screening: No deficits noted. Tuberculosis screening: No symptoms or risk factors identified. Assessment: 18:04 General: Appears distressed, uncomfortable, Behavior is calm, cooperative, appropriate ko1 for age. Pain: Complains of pain in left foot. Neuro: No deficits noted. Cardiovascular: No deficits noted. Respiratory: No deficits noted. GI: No deficits noted. : No deficits noted. EENT: No deficits noted. Derm: No deficits noted. Musculoskeletal: No deficits noted. 19:18 Reassessment: Patient appears in no apparent distress at this time. as6 Vital Signs: 17:26 BP 112 / 83; Pulse 89; Resp 18; Temp 97; Pulse Ox 97% ; ko1 18:04 BP 110 / 81; Pulse 87; Resp 16; Pulse Ox 100% ; ko1 19:17 BP 114 / 86; Pulse 97; Resp 18 S; Pulse Ox 100% on R/A; as6 19:25 Height 5 ft. 4 in. ; jw7 ED Course: 16:52 Patient arrived in ED. im 16:52 Jalil Stockton PA is PHCP. cp 16:52 Navarro Jhaveri is Attending Physician. cp 17:31 Triage completed. ko1 17:31 Arm band placed on right wrist. Patient placed in an exam room, on a stretcher, on ko1 pulse oximetry, Patient notified of wait time. 17:40 Inserted saline lock: 22 gauge in left antecubital area, using aseptic technique. Blood ko1 collected. 17:50 XRAY Foot LEFT 3 View In Process Unspecified. EDMS 17:50 CBC with Diff Sent. ko1 17:50 BMP Sent. ko1 17:54 PREGU Sent. ko1 17:54 Urinalysis W/Microscopic Sent. ko1 18:02 Lauren Bose, RN is Primary Nurse. ko1 18:04 Patient has correct armband on for positive identification. Placed in gown. Bed in low ko1 position. Call light in reach. Side rails up X 1. Pulse ox on. NIBP on. Door closed. Noise minimized. Lights dimmed. Warm blanket given. 19:43 No provider procedures requiring assistance completed. IV discontinued, intact, jw7 bleeding controlled, No redness/swelling at site. Pressure dressing applied. 19:44 Provided Education on: how to use crutches, discharge instructions, and medications. jw7 Administered Medications: 17:50 Drug: Ketorolac IVP 15 mg Route: IVP; Site: left antecubital; ko1 19:25 Follow up: Response: No adverse reaction jw7 17:57 Drug: Insulin Regular Human IVP 10 units {Co-Signature: rs5 (Brian Ca RN).} Route: ko1 IVP; Site: left antecubital; 19:25 Follow up: Response: No adverse reaction jw7 17:57 Drug: NS 0.9% IV 1000 ml Route: IV; Rate: 1 bolus; Site: left antecubital; ko1 19:25 Follow up: Response: No adverse reaction; IV Status: Completed infusion; IV Intake: jw7 1000ml Medication: 19:19 VIS not applicable for this client. as6 Point of Care Testing: Blood Glucose: 19:17 Blood Glucose: 197 mg/dL; as6 Ranges: Intake: 19:25 IV: 1000ml; Total: 1000ml. jw7 Outcome: 19:19 Condition: stable as6 19:29 Discharge ordered by . cp 19:43 Discharged to home with crutches. jw7 19:43 Discharge instructions given to patient, Instructed on discharge instructions, follow up and referral plans. medication usage, Demonstrated understanding of instructions, follow-up care, medications, Prescriptions given X 3. 19:45 Patient left the ED. jw7 Signatures: Dispatcher [employer] EDMS Jalil Stockton PA PA cp Slawson, Ashby, RN RN as6 Adeola Pulido RN RN jw7 Lauren Bose, RN RN ko1 Sara Billingsley Ricky RN rs5
[2022-11-03 20:39] VITALS: TEMP 97
[2022-11-03 20:40] VITALS: O2SAT 100
[2022-11-03 20:41] VITALS: BP 114/86
== END 2022-11-03 19:45 | disposition home or self-care (01) ==
LOC: ER 16:48
DX: M79.672 Pain in left foot (principal); E11.65 Type 2 diabetes mellitus with hyperglycemia
CPT/HCPCS: 36415; 80048; 81001; 81025; 82947; 85025; 96361; 96374; 96375; 99284; J1815; J7030

== ENCOUNTER 2022-11-26 14:35 | Emergency (ER) | payer SELFPAY ==
--- OUTSIDE RECORDS SUMMARY | 2022-11-26 14:38 | XMS REPORT | Continuity of Care Document ---
:[address] [facility] t Address [address] [place] [address] [address] [place] [address] Care Team Providers Name Role Phone ANEL CONTRERAS Primary Care Physician Unavailable GHISLAINE SAMUEL Attending Clinician Unavailable Provider, Wang Duttap Attending Clinician Unavailable Ghislaine Samuel PA-C Attending Clinician Doctor Unassigned, [place] Attending Clinician Unavailable DAKOTA VALENZUELA Attending Clinician Unavailable TERRANCE ALICEA Attending Clinician Unavailable Terrance Alicea DDS Attending Clinician Joao Babcock DO Attending Clinician Anel Cisneros Attending Clinician [phone] ANEL CONTRERAS Attending Clinician Unavailable TERRANCE ALICEA Admitting Clinician Unavailable Terrance Alicea DDS Admitting Clinician Payers Payer Name Policy Type Policy Number Effective Date Expiration Date S [facility] [id number] 2018 00:00:00 Problems Condition Condition Condition Status [...] place 1 ity of 00:00: [place] 00 [facility] Submandibu Submandibu Disease Active 2020-02 U nivers lar lar 1-07 ity of abscess abscess 00:00: [place] 00 [facility] Cervical Cervical Disease Active Overview: [...] glucose 2-13 ity of 00:00: [place] 00 [facility] Abnormal Abnormal Disease Active Unive [...] y 2-11 ity of 00:00: [place] 00 [facility] Diet Diet Disease Active Overview: [facility] controlled controlled 4-10 A2GDM- it y of gestationa gestationa 00:00: glybnurid [facility] diabetes l diabetes 00 e 2.5 mg Medical mellitus mellitus Q am and Bran ch (GDM) in (GDM) in 5 mg Q pm second second trimester trimester High risk High risk Disease Active 2014-02 Uni vers , , 1-15 [place] [address] [place] [address] Allergies, Adverse Reactions, Alerts Allergy Allergy Status Severity Reaction(s) Onset Inactive Treating Comm ents Source Name Type Date Date Clinician No Known DA Active U [facility] Allergie 06-09 [facility] 00:00: [address] NO KNOWN Drug Active [facility] ALLERGIE Class ity of [facility] Social History Social Habit Start Date Stop Date Quantity Comments Source Exposure to 2021-12-12 2021-12-22 Not sure [facility] SARS-CoV-2 00:00:00 12:38:00 [facility] (event) [place] Tobacco use and 2021-12-22 2021-12-22 Smokeless tobacco Un iversity of exposure 00:00:00 00:00:00 non-user [facility] Alcohol intake 2021-12-22 2021-12-22 0 /d [facility] 00:00:00 00:00:00 [facility] Tobacco Comment 2021-12-22 2021-12-22 smokes 3 Universit y of 00:00:00 00:00:00 cigarettes per [facility] day. pt states she Branch stopped smoking since she found out about . History of 2014-12-22 Cigarette Smoker Universi ty of tobacco use 00:00:00 [facility] Sex Ass[birth year] At [birth year] Universit y of 00:00:00 00:00:00 [facility] Smoking Status Start Date Stop Date Source Smokes tobacco daily 2021-12-22 00:00:00 Univers ity of [facility] Medications Ordered Filled Start Stop Current Ordering Indication Dosage Frequency Signature Comments Components Source Medication Medication Date Date Medication? Clinician (SIG) Name Name etonogestre 2021-02- No [id number] 68mg Univers L 02-21 ity of (NEXPLANON) 19:15: 18:35 [place] implant 68 00 :00 Medical Branch etonogestre 2021-02- No [id number] 68mg 68 mg, Univers L 02-21 Subdermal, ity of (NEXPLANON) 19:15: 18:35 ONCE NOW, [place] implant 68 00 :00 1 dose, On Med ical mg Sat [place] 12/22/21 at 1415, Routine
Use approved by: CHAINSTITCH FELLED SEAM OPERATOR etonogestre 2021-02- No [id number] 68mg Univers L 02-2105 ity of (NEXPLANON) 19:15: 18:35 [place] implant 68 00 :00 Medical mg Branch etonogestre 2021-02- No [id number] 68mg 68 mg, Univers L 02-21 Subdermal, ity of (NEXPLANON) 19:15: 18:35 ONCE NOW, [place] implant 68 00 :00 1 dose, On Med ical mg [facility] 12/22/21 at 1415, Routine
Use approved by: CHAINSTITCH FELLED SEAM OPERATOR insulin 2021-02 Yes inject Univers degludec 1-05 under the ity of (TRESIBA 12:59: skin. [place] U-100 59 Medical INSULIN SC) Branch insulin 2021-02 Yes inject Univers degludec 1-05 under the ity of (TRESIBA 12:59: skin. [place] U-100 59 Medical INSULIN SC) Branch dapaglifloz [...] route for 30 days. cephALEXin 2021-02- No [id number] 500mg Take 1 Univers (KEFLEX) 02-21 capsule by ity of 500 mg 00:00: 05:59 mouth 4 [place] capsule 00 :00 (four) Medical times [place] daily for 7 days. cephALEXin 2021-02- No [id number] 500mg Take 1 Univers (KEFLEX) 02-21 capsule by ity of 500 mg 00:00: 05:59 mouth 4 [place] capsule 00 :00 (four) Medical times [place] daily for 7 days. ARIPiprazol Yes TAKE ONE Un nancy e 2 mg 9- (1) ity of tablet 00:00: TABLET(S) 00 BY MOUTH Medical IN THE [place] MORNING. ARIPiprazol Yes TAKE ONE Un nancy e 2 mg 9- (1) ity of tablet 00:00: TABLET(S) 00 BY MOUTH Medical IN THE [place] MORNING. dapaglifloz 2020-02 Yes Xigduo XR U [...] dapaglifloz 2020-02 Yes Xigduo XR [facility]23 10 ity of n (XIGDUO [...] 00 First dose Medical (HumaLOG) + on [facility] Fsbg 12/24/20 at Testing 0800, Until Discontinu ed, Routine lactated 2020-02 Yes 1000mL at 50 Univer s ringers IV 1-07 mL/hr, ity of infusion 07:30: 1,000 mL[place] 1,000 [place] 00 IV Medical Infusion, Branch CONTINUOUS , Starting on [place] 12/24/20 at 0130, Until Discontinu ed, Routine naloxone 2020-02 Yes .1mg 0.1 mg, Univer s (NARCAN) 1-07 Slow IV ity of injection 07:21: Push, PRN Negro as 0.1 mg 11 - SEE Medical INSTRUCTIO [place] NS, Starting on [place] 12/24/20 at 0121, Until Discontinu ed, Routine, Sedation/R espiratory Depression , See admin instructio ns. morpHINE 2020-02- No 2mg 2 mg, Slow Un nancy injection 2 07 11-09 IV Push, ity of mg 07:21: 07:20 Q3HPRN, [place] 11 :11 Starting Medical on [facility] 12/24/20 at 0121, Until 12/26/20 at 0120, Routine, Pain (scale 7-10) HYDROcodone 2020-02 Yes 1{tbl} 1 tablet, Univers -acetaminop 1-07 Oral, ity of hen (NORCO 07:21: Q6HPRN, [place] 5) 5-325 mg 10 Starting Medi aleksey tablet 1 on [facility] tablet 12/24/20 at 0121, Until Discontinu ed, Routine, Pain (scale 4-6) ibuprofen 2020-02 Yes 600mg 600 mg, Univ ers (ADVIL 1-07 Oral, ity of CHILDREN'S) 07:21: Q6HPRN, Negro as 100 mg/5 mL 04 Starting Medi aleksey oral on [facility] suspension 12/24/20 at 600 mg 0121, Until Discontinu ed, Routine, Pain (scale 1-3) ondansetron 2020-02 Yes 4mg 4 mg, Slow Univers (ZOFRAN 1-07 IV Push, ity of (PF)) 07:20: Q4HPRN, [place] injection 4 54 Starting Medi aleksey mg on [place] Branch 12/24/20 at 0120, Until Discontinu ed, Routine, Nausea and Vomiting (N/V) chlorhexidi 2020-02 Yes [id number] 15mL Swish and Univers ne 0.12 % 1-07 spit out ity of mouthwash 00:00: 15 mL 2 [place] 00 (two) Medical times Branch daily. ibuprofen 2020-02 Yes [id number] 600mg Take 30 mL Univers 100 mg/5 mL 1-07 by mouth ity of oral 00:00: every 6 [place] suspension 00 (six) Medical hours as Branch needed for Pain (scale 1-3). chlorhexidi 2020-02 Yes [id number] 15mL Swish and Univers ne 0.12 % 1-07 spit out ity of mouthwash 00:00: 15 mL 2 [place] 00 (two) Medical times Branch daily. ibuprofen 2020-02 Yes [id number] 600mg Take 30 mL Univers 100 mg/5 mL 1-07 by mouth ity of oral 00:00: every 6 [place] suspension 00 (six) Medical hours as Branch needed for Pain (scale 1-3). chlorhexidi 2020-02 Yes [id number] 15mL Swish and Univers ne 0.12 % 1-07 spit out ity of mouthwash 00:00: 15 mL 2 [place] 00 (two) Medical times Branch daily. ibuprofen 2020-02 Yes [id number] 600mg Take 30 mL Univers 100 mg/5 mL 1-07 by mouth ity of oral 00:00: every 6 [place] suspension 00 (six) Medical hours as Branch needed for Pain (scale 1-3). chlorhexidi 2020-02 No [id number] 15mL Swish and Univers ne 0.12 % 02-23 11-05 spit out ity o f mouthwash 00:00: 00:00 15 mL 2 [place] 00 :00 (two) Medical times Branch daily. ibuprofen 2020-02- No [id number] 600mg Take 30 mL Univers 100 mg/5 mL 1-07 11-05 by mouth ity of oral 00:00: 00:00 every 6 [place] suspension 00 :00 (six) Medical hours as Branch needed for Pain (scale 1-3). chlorhexidi 2020-02- No [id number] 15mL Swish and Univers ne 0.12 % 02-23 spit out ity o f mouthwash 00:00: 00:00 15 mL 2 [place] 00 :00 (two) Medical times Branch daily. ibuprofen 2020-02- No [id number] 600mg Take 30 mL Univers 100 mg/5 [...] Indication s: acute pain amoxicillin 2020-02- No [id number] 1{tbl} Take 1 Univers -clavulanat 02-23 tablet by it y of e 00:00: 05:59 mouth 2 [place] (AUGMENTIN) 00 :00 (two) Medical 875-125 mg times Branch per tablet daily for 7 days. Blood-Gluco Yes [id number] Use as Univers se Meter 2-18 directed ity of (FREESTYLE 00:00: [place] LITE METER) 00 Medical Kit Branch blood sugar Yes [id number] Use as Univers diagnostic 2-18 directed ity o f (FREESTYLE 00:00: [place] LITE 00 Medical STRIPS) Branch strip lancets 17 Yes [id number] Use as U nivers gauge Misc 2-18 directed ity o f 00:00: [place] 00 Medical Branch Blood-Gluco Yes [id number] Use as Univers se Meter 2-18 directed ity of (FREESTYLE 00:00: [place] LITE METER) 00 Medical Kit Branch blood sugar Yes [id number] Use as Univers diagnostic 2-18 directed ity o f (FREESTYLE 00:00: [place] LITE 00 Medical STRIPS) Branch strip lancets 17 Yes [id number] Use as U nivers gauge Misc 2-18 directed ity o f 00:00: [place] 00 Medical Branch Blood-Gluco 2019-0 Yes [id number] Use as Univers se Meter 2-18 directed ity of (FREESTYLE 00:00: [place] LITE METER) 00 Medical Kit Branch lancets 17 2018-0 Yes [id number] Use as U nivers gauge Misc 2-18 directed ity o f 00:00: [place] 00 Medical Branch Blood-Gluco 2019-0 Yes [id number] Use as Univers se Meter 2-18 directed ity of (FREESTYLE 00:00: [place] LITE METER) 00 Medical Kit Branch lancets 17 2018-0 Yes [id number] Use as U nivers gauge Misc 2-18 directed ity o f 00:00: [place] 00 Medical Branch Blood-Gluco 2019-0 Yes [id number] Use as Univers se Meter 2-18 directed ity of (FREESTYLE 00:00: [place] LITE METER) 00 Medical Kit Branch blood sugar 0 Yes [id number] Use as Univers diagnostic 2-18 directed ity o f (FREESTYLE 00:00: [place] LITE 00 Medical STRIPS) Branch strip lancets 17 2018-0 Yes [id number] Use as U nivers gauge Misc 2-18 directed ity o f 00:00: [place] 00 Medical Branch Blood-Gluco 2018-0 Yes [id number] Use as Univers se Meter 2-18 directed ity of (FREESTYLE 00:00: [place] LITE METER) 00 Medical Kit Branch blood sugar 2019-0 Yes [id number] Use as Univers diagnostic 2-18 directed ity o f (FREESTYLE 00:00: [place] LITE 00 Medical STRIPS) Branch strip lancets 17 2018-0 Yes [id number] Use as U nivers gauge Misc 2-18 directed ity o f 00:00: [place] 00 Medical Branch Blood-Gluco 2019-0 Yes [id number] Use as Univers se Meter 2-18 directed ity of (FREESTYLE 00:00: [place] LITE METER) 00 Medical Kit Branch blood sugar 2019-0 Yes [id number] Use as Univers diagnostic 2-18 directed ity o f (FREESTYLE 00:00: [place] LITE 00 Medical STRIPS) Branch strip lancets 17 2018-0 Yes [id number] Use as U nivers gauge Misc 2-18 directed ity o f 00:00: [place] 00 Medical Branch Blood-Gluco 2019-0 Yes [id number] Use as Univers se Meter 2-18 directed ity of (FREESTYLE 00:00: [place] LITE METER) 00 Medical Kit Branch blood sugar Yes [id number] Use as Univers diagnostic 2-18 directed ity o f (FREESTYLE 00:00: [place] LITE 00 Medical STRIPS) Branch strip lancets 17 Yes [id number] Use as U nivers gauge Misc 2-18 directed ity o f 00:00: [place] 00 Medical Branch Blood-Gluco Yes [id number] Use as Univers se Meter 2-18 directed ity of (FREESTYLE 00:00: [place] LITE METER) 00 Medical Kit Branch blood sugar Yes [id number] Use as Univers diagnostic 2-18 directed ity o f (FREESTYLE 00:00: [place] LITE 00 Medical STRIPS) Branch strip lancets 17 Yes [id number] Use as U nivers gauge Misc 2-18 directed ity o f 00:00: [place] 00 Medical Branch blood sugar 2021- No [id number] Use as Univers diagnostic 2-18 12-22 directed ity of (FREESTYLE 00:00: 00:00 [place] LITE 00 :00 Medical STRIPS) Branch strip blood sugar 2021- No [id number] Use as Univers diagnostic 2-18 12-22 directed ity of (FREESTYLE 00:00: 00:00 [place] LITE 00 :00 Medical STRIPS) Branch strip Yes [id number] 1{packe Take 1 Univers vit 2-12 t} Packet by ity of 33-iron-fol 00:00: mouth [place] ic-dha 00 daily. Medical (SELECT-OB Branch + DHA) 29 mg iron-1 mg -250 mg combo pack Yes [id number] 1{packe Take 1 Univers vit 2-12 t} Packet by ity of 33-iron-fol 00:00: mouth [place] ic-dha 00 daily. Medical (SELECT-OB Branch + DHA) 29 mg iron-1 mg -250 mg combo pack Yes [id number] 1{packe Take 1 Univers vit 2-12 t} Packet by ity of 33-iron-fol 00:00: mouth [place] ic-dha 00 daily. Medical (SELECT-OB Branch + DHA) 29 mg iron-1 mg -250 mg combo pack Yes [id number] 1{packe Take 1 Univers vit 2-12 t} Packet by ity of 33-iron-fol 00:00: mouth [place] ic-dha 00 daily. Medical (SELECT-OB Branch + DHA) 29 mg iron-1 mg -250 mg combo pack Yes [id number] 1{packe Take 1 Univers vit 2-12 t} Packet by ity of 33-iron-fol 00:00: mouth [place] ic-dha 00 daily. Medical (SELECT-OB Branch + DHA) 29 mg iron-1 mg -250 mg combo pack Yes [id number] 1{packe Take 1 Univers vit 2-12 t} Packet by ity of 33-iron-fol 00:00: mouth [place] ic-dha 00 daily. Medical (SELECT-OB Branch + DHA) 29 mg iron-1 mg -250 mg combo pack Yes [id number] 1{packe Take 1 Univers vit 2-12 t} Packet by ity of 33-iron-fol 00:00: mouth [place] ic-dha 00 daily. Medical (SELECT-OB Branch + DHA) 29 mg iron-1 mg -250 mg combo pack 2021- No [id number] 1{packe Take 1 Univers vit 2-12 11-05 t} Packet by ity of 33-iron-fol 00:00: 00:00 [place] ic-dha 00 :00 daily. Medical (SELECT-OB Branch + DHA) 29 mg iron-1 mg -250 mg combo pack 2021- No [id number] 1{packe Take 1 Univers vit 2-12 11-05 t} Packet by ity of 33-iron-fol 00:00: 00:00 mouth [place] ic-dha 00 :00 daily. Medical (SELECT-OB Branch + DHA) 29 mg iron-1 mg -250 mg combo pack Vital Signs Vital Name Observation Time Observation Value Comments Source Systolic blood 2021-12-22 17:38:00 119 mm[Hg] Univer sity of pressure [facility] Diastolic blood 2021-12-22 17:38:00 77 mm[Hg] [facility] Heart rate 2021-12-22 17:38:00 76 /min Universi ty of [facility] Body temperature 2021-12-22 17:38:00 35.83 [place] Univ ersity of [facility] Respiratory rate 2021-12-22 17:38:00 18 /min Univ ersity of [facility] Body height 2021-12-22 17:38:00 154.9 cm Universi ty of [facility] Body weight 2021-12-22 17:38:00 60.51 kg Universi ty of [facility] BMI 2021-12-22 17:38:00 25.21 kg/m2 Universi ty of [facility] Systolic blood 2020-12-24 17:05:00 125 mm[Hg] Univer sity of pressure [facility] Branch Diastolic blood 2020-12-24 17:05:00 87 mm[Hg] Unive rsity of pressure [facility] Heart rate 2020-12-24 17:05:00 91 /min Universi ty of [facility] Body temperature 2020-12-24 17:05:00 36.22 [place] Univ ersity of [facility] Respiratory rate 2020-12-24 17:05:00 18 /min Univ ersity of [facility] Oxygen saturation in 2020-12-24 17:05:00 98 /min University of Arterial blood by [facility] Pulse oximetry Branch Body weight 2020-12-24 06:32:00 68.04 kg Universi ty of [facility] BMI 2020-12-24 06:32:00 28.34 kg/m2 Universi ty of [facility] Systolic blood 2020-04-28 16:31:00 106 mm[Hg] Univer sity of pressure [facility] Diastolic blood 2020-04-28 16:31:00 73 mm[Hg] Unive rsity of pressure [facility] Heart rate 2020-04-28 16:31:00 77 /min Universi ty of [facility] Body temperature 2020-04-28 16:31:00 36.72 [place] Univ ersity of [facility] Branch Respiratory rate 2020-04-28 16:31:00 16 /min Univ ersity of [facility] Body height 2020-04-28 16:31:00 154.9 cm Universi ty of [facility] Body weight 2020-04-28 16:31:00 59.081 kg Universi ty of [facility] BMI 2020-04-28 16:31:00 24.61 kg/m2 Universi ty of [facility] Branch Systolic blood 2020-04-28 16:31:00 106 mm[Hg] Univer sity of pressure [facility] Diastolic blood 2020-04-28 16:31:00 73 mm[Hg] Unive rsity of [facility] Heart rate 2020-04-28 16:31:00 77 /min [facility] Body temperature 2020-04-28 16:31:00 36.72 [place] [facility] Respiratory rate 2020-04-28 16:31:00 16 /min [facility] Body height 2020-04-28 16:31:[address] [facility] Body weight 2020-04-28 16:31:[address] [facility] BMI 2020-04-28 16:31:00 24.61 kg/m2 [facility] Procedures Procedure Date / Time Performed Performing Clinician Sour e POCT TEST 2021-12-22 17:49:[address] [facility] GARDASIL 9 (HPV 9V) 2021-12-22 17:48:52 Glenda Samuelasha [facility] VACCINE [facility] ASSIGNMENT OF BENEFITS 2021-12-22 17:24:31 Doctor Unassigned, No [facility] EXTERNAL PROVIDER 2021-01-02 06:01:00 Doctor Unassigned, No [facility] POCT GLUCOSE 2020-12-24 14:10:00 Terrance Alicea [facility] (AUTOMATED) [facility] ASSIGNMENT OF BENEFITS 2020-04-28 17:41:20 Doctor Unassigned, No [facility] FLU VACC ([phone]), 2020-04-28 17:21:26 Anel Contreras [facility] 6+ MONTHS, IM, QUAD Medical Bran ch Encounters Start End Encounter Admission Attending Care Care Encounter Source Date/Time Date/Time Type Type Clinicians Facility Department ID 2021-12-22 2021-12-22 Outpatient R JIMMIE [facility] [id number] Univers 12:45:00 13:22:01 GHISLAINE valdez [facility] 2021-12-22 2021-12-22 Office Provider, Ang-Rmchp Temp [facility] [id number] Univers 12:45:00 13:22:01 Visit Ghislaine Samuel CHAINSTITCH FELLED SEAM OPERATOR [id number] ity of [facility] [id number] Negro as MATERNAL [id number] Med ical & CHILD [address] [place] [address] 2021-12-22 2021-12-22 Orders Doctor SAMMY [id number] Univers 00:00:00 00:00:00 Only Unassigned, GIL [id number] ity of [place] [facility] [id number] Negro as [phone] [address] 2021-01-02 2021-01-02 Orders Doctor SAMMY [id number] Univers 00:00:00 00:00:00 Only Unassigned, GIL [id number] ity of [place] [facility] [id number] Negro as [id number] [address] 2020 2020 Outpatient R DARRELL [facility] [id number] Univers 14:00:00 14:00:00 [facility] 2020-12-26 2020-12-26 Outpatient R DARRELL [facility] [id number] Univers 16:30:00 16:30:00 [facility] 2020-12-24 2020-12-24 Outpatient X DARRELL [facility] HERMILO [id number] Univers 01:34:00 17:25:00 [facility] 2020-12-24 2020-12-24 Emergency DIVINE [place] [id number] Univers 01:34:00 17:25:00 [facility] GIL [id number] it y of HOSPITAL [id number] Negro as [id number] [address] 2020-05-09 2020-05-09 Patient Sadiq [facility] [id number] Univers 00:00:00 00:00:00 Outreach Joao PRIMARY [id number] i ty of Located within [facility] 4.2.7.2.686 [place] ANDREWON [phone] [place] [address] 2020-05-09 2020-05-09 Patient Sadiq [facility] [id number] 00:00:00 00:00:00 Outreach Joao PRIMARY [id number] Kostas CARE 4.2.7.2.686 PAVILLION [id number] [facility] 2020-04-28 2020-04-28 Office [facility] [id number] Univers 10:17:04 11:41:16 Visit Anel Munguia CHAINSTITCH FELLED SEAM OPERATOR [id number] ity of [facility] [id number] Negro as MATERNAL [id number] Med ical & CHILD [address] [place] [address] 2020-04-28 2020-04-28 [facility] [id number] 10:17:04 11:41:16 Visit Anel Munguia CHAINSTITCH FELLED SEAM OPERATOR [id number] [facility] [id number] MATERNAL [phone] & CHILD [address] [place] [address] 2020-04-28 2020-04-28 Outpatient R [facility] [id number] Univers 10:15:00 10:15:00 ANEL valdez o f [facility] 2020-04-28 2020-04-28 Orders Doctor SAMMY [id number] Univers 00:00:00 00:00:00 Only Unassigned, GIL [id number] ity of [place] [facility] [id number] Negro as [phone] [address] Results Test Description Test Time Test Comments Results Result Comments Source POCT TEST 2021-12-22 17:50:00 Test Item Value Reference Range Interpretation Comme nts POCT PREG (test code = 1605) Negative On board controls acceptable with C Line (test code = 3574) Yes POCT PREG LOT # (test code = 3575) POCT PREG TEST DATE (test code = 3576) [id number] 17:50:00 Test Item Value Reference Range Interpretation Comments POCT PREG (test code = 1605) Negative On board controls acceptable with C Yes Line (test code = 3574) POCT PREG LOT # (test code = 3575) POCT PREG TEST DATE (test code = 3576) [facility] RT-PCR/[id number] 17:22:59 Test Item Value Reference Interpretation Comments Range SARS-CoV-2 NEGATIVE SEE NOTE SARS-CoV-2 RNA NOT INTERPRETATION DETECTEDNegat zelda (test code = 40072) results do not preclude SARS-C oV-2 infection and s hould notbe used as t he sole basis for [...] (test code = NASOPH[place]: [place] [address]) Juliana Leeann Zahira l-Time RT-PCR. The exp [...] provided by met hod given in report:https:// www.[facility].com/clinic ians/cl ient-communicat ions/ Alternatively, see downloadable PD F fact sheet at:https://www. [employer] .Forever/COVID-19-R T-PCR UNLESS OTHERWIS E INDICATED, ALL TESTING PERFORMED [facility], [address] [address] [facility] KATI DIRECTOR: Sierra JORDANIA NUMBER [id number] CAP ACCREDITATION N O. [id number] POCT GLUCOSE (AUTOMATED)2020-12-24 14:12:21 Test Item Value Reference Range Interpretation Comments POCT GLU (test code = 3737323253) 212 mg/dL 70-110 H Lab Interpretation (test code = Abnormal 28719-3) [facility] 15:58:00 Test Item Value Reference Range Interpretation Comments GLUBED (test code = GLUBED) 148 mg/dL 65-110 H [id number] 10:51:00 Test Item Value Reference Range Interpretation Comments GLUBED (test code = GLUBED) 174 mg/dL 65-110 H [id number] 06:04:00 Test Item Value Reference Range Interpretation Comments GLUBED (test code = GLUBED) 83 mg/dL 65-110 N GLYCOSYLATED HEMOGLOBIN [id number] 04:40:00 Test Item Value Reference Range Interpretation [...] H (test code = MBG) COMPREHENSIVE METABOLIC [id number] 04:40:00 Test Item Value Reference Range Interpretation [...] fructosaminesho uld be considered for these patients. [id number] 00:14:00 Test Item Value Reference Range Interpretation Comments GLUBED (test code = GLUBED) 194 mg/dL 65-110 H COMPREHENSIVE METABOLIC [id number] 21:06:00 Test Item Value Reference Range Interpretation [...] (HA1C) (test code = GLYHGB) CBC W/AUTO [id number] 20:53:00 Test Item Value Reference Range Interpretation [...] (test NORMAL NORMAL code = PLTMR) URINALYSIS [id number] 20:08:00 Test Item Value Reference Range Interpretation [...] #/hpf NONE SEEN A URINE SAMPLE: CLEAN [id number] 20:01:00 Test Item Value Reference Range Interpretation Comments GLUBED (test code = GLUBED) 196 mg/dL 65-110 H URINALYSIS [id number] 19:53:00 Test Item Value Reference Range Interpretation [...]
--- NOTE | 2022-11-26 15:10 | EDPHYS ---
Physician Documentation [facility] Name: Harriett Gillette Age: 31 yrs Sex: Female : 1990 Arrival Date: 11/26/2022 Time: 14:35 Bed IW9 Private MD: ED Physician Mc Rosenberg HPI: 11/26 16:00 This 31 yrs old Female presents to ER via Ambulatory with complaints of rt Numbness of Leg. 16:00 Patient with history of previously poorly controlled diabetes mellitus presents to the rt ED with numbness to the left foot, lower extremity. Is been going on for some time. The patient states that she believe that she has diabetic neuropathy, so to come to the ED by her boss. Denies any injury. Denies other acute complaints at this time, symptoms are mild in severity, no other aggravating elevating factors.. Historical: - Allergies: 15:03 Codeine; nj1 15:03 Hydrocodone-Acetaminophen; nj1 - PMHx: 15:03 Diabetes - IDDM; GESTATIONAL DM; heart valve dysfunction; Pre-eclampsia; nj1 - PSHx: 15:03 Appendectomy; nj1 - Immunization history:: Client reports receiving the 2nd dose of the Covid vaccine. - Social history:: Smoking status: Patient denies any tobacco usage or history of. - Family history:: not pertinent. ROS: 16:00 Constitutional: Negative for fever, chills, and weight loss, Cardiovascular: Negative rt for chest pain, palpitations, and edema, Respiratory: Negative for shortness of breath, cough, wheezing, and pleuritic chest pain, Abdomen/GI: Negative for abdominal pain, nausea, vomiting, diarrhea, and constipation, MS/Extremity: Negative for injury and deformity, Skin: Negative for injury, rash, and discoloration, Psych: Negative for depression, anxiety, suicide ideation, homicidal ideation, and hallucinations, 16:00 Constitutional: Positive for 16:00 Neuro: Positive for numbness, Negative for weakness, Exam: 16:00 Constitutional: This is a well developed, well nourished patient who is awake, alert, rt and in no acute distress. Head/Face: Normocephalic, atraumatic. Neck: Trachea midline, no thyromegaly or masses palpated, and no cervical lymphadenopathy. Supple, full range of motion without nuchal rigidity, or vertebral point tenderness. No Meningismus. Chest/axilla: Normal chest wall appearance and motion. Nontender with no deformity. No lesions are appreciated. Skin: Warm, dry with normal turgor. Normal color with no rashes, no lesions, and no evidence of cellulitis. Psych: Awake, alert, with orientation to person, place and time. Behavior, mood, and affect are within normal limits. 16:00 Musculoskeletal/extremity: Numbness distally on the left lower extremity to about the calf. Pulses, motor, are intact. There are no overlying skin changes, no evidence of infection, ulceration.. Vital Signs: 14:58 BP 117 / 79; Pulse 85; Resp 16; Temp 98.1(TE); Pulse Ox 98% ; Weight 58.97 kg; Height 5 nj1 ft. 0 in. ; 14:58 Body Mass Index 25.39 (58.97 kg, 152.4 cm) nj1 MDM: 15:08 Patient medically screened. rt 16:00 Differential diagnosis: Diabetic foot wound, infection, neuropathy. Data reviewed: rt vital signs, nurses notes. Test considered but Not performed: Labs: Patient states that her diabetes is better controlled currently on new insulin regimen, no skin changes on the foot, labs not indicated. Care significantly affected by the following chronic conditions: Diabetes. Counseling: I had a detailed discussion with the patient and/or guardian regarding the historical points, exam findings, and any diagnostic results supporting the discharge/admit diagnosis, the need for outpatient follow up, to return to the emergency department if symptoms worsen or persist or if there are any questions or concerns that arise at home. Administered Medications: No medications were administered Disposition Summary: 11/26/22 15:09 Discharge Ordered Notes: Location: Home rt Problem: an ongoing problem rt Symptoms: are unchanged rt Condition: Stable rt Diagnosis - Diabetes mellitus due to underlying condition with diabetic neuropathy, unspecified rt Followup: rt - With: Private Physician - When: 5 - 6 days - Reason: Discharge Instructions: - Discharge Summary Sheet rt - Diabetes Mellitus and Foot Care rt - Diabetic Neuropathy rt Forms: - Work release form rt - Medication Reconciliation Form rt - Thank You Letter rt - Antibiotic Education rt - Prescription Opioid Use rt - Patient Portal Instructions rt - Leadership Thank You Letter rt Prescriptions: - gabapentin 100 mg Oral capsule - take 1 capsule ORAL route 3 times per day for 1 day; 30 capsule; Refills: 0, rt Product Selection Permitted Signatures: Mc Rosenberg MD MD rt Shanell Cagle, RN RN nj1
--- NOTE | 2022-11-26 15:10 | ER ---
Nurse's Notes [facility] Name: Harriett Gillette Age: 31 yrs Sex: Female : 1990 Arrival Date: 11/26/2022 Time: 14:35 Bed IW9 Private MD: Diagnosis: Diabetes mellitus due to underlying condition with diabetic neuropathy, unspecified Presentation: 11/26 14:58 Chief complaint: Patient states: Lower leg numbness for almost 3 weeks, seen here 3 nj1 weeks ago for left leg pain "i couldn't walk on it", sent home, numbness started about 2 days after, has gotten worse. Sent from work to be cleared to come back to work. Coronavirus screen: Vaccine status: Patient reports receiving the 2nd dose of the covid vaccine. Ebola Screen: Patient denies travel to an Ebola-affected area in the 21 days before illness onset. Initial Sepsis Screen: Does the patient meet any 2 criteria? No. Patient's initial sepsis screen is negative. Does the patient have a suspected source of infection? No. Patient's initial sepsis screen is negative. Risk Assessment: Do you want to hurt yourself or someone else? Patient reports no desire to harm self or others. Onset of symptoms was October 2022. 14:58 Method Of Arrival: Ambulatory [facility] 14:58 Acuity: TIFFANIE 4 nj1 Triage Assessment: 15:08 General: Appears in no apparent distress. comfortable, Behavior is calm, cooperative, nj1 appropriate for age. Pain: Denies pain. Neuro: Level of Consciousness is awake, alert, obeys commands, Oriented to person, place, time, situation, Speech is normal, Facial symmetry appears normal, Tingling in left foot and lower leg. Cardiovascular: Patient's skin is warm and dry. Respiratory: Airway is patent Respiratory effort is even, unlabored. Historical: - Allergies: 15:03 Codeine; nj1 15:03 Hydrocodone-Acetaminophen; nj1 - PMHx: 15:03 Diabetes - IDDM; GESTATIONAL DM; heart valve dysfunction; Pre-eclampsia; nj1 - PSHx: 15:03 Appendectomy; nj1 - Immunization history:: Client reports receiving the 2nd dose of the Covid vaccine. - Social history:: Smoking status: Patient denies any tobacco usage or history of. - Family history:: not pertinent. Screenin:27 [facility] ED Fall Risk Assessment (Adult) Score/Fall Risk Level 0 - 2 = Low Risk hb Oriented to surroundings, Maintained a safe environment. Abuse screen: Denies threats or abuse. Denies injuries from another. Nutritional screening: No deficits noted. Tuberculosis screening: No symptoms or risk factors identified. Assessment: 15:27 Reassessment: Patient appears in no apparent distress at this time. Patient and/or hb family updated on plan of care and expected duration. Pain level reassessed. Patient is alert, oriented x 3, equal unlabored respirations, skin warm/dry/pink. Vital Signs: 14:58 BP 117 / 79; Pulse 85; Resp 16; Temp 98.1(TE); Pulse Ox 98% ; Weight 58.97 kg; Height 5 nj1 ft. 0 in. ; 14:58 Body Mass Index 25.39 (58.97 kg, 152.4 cm) nj1 ED Course: 14:38 Patient arrived in ED. rg4 14:55 Mc Rosenberg MD is Attending Physician. rt 15:03 Triage completed. nj1 15:08 Arm band placed on right wrist. nj1 15:27 Patient has correct armband on for positive identification. Provided Education on: hb follow up. 15:27 No provider procedures requiring assistance completed. Patient did not have IV access hb during this emergency room visit. Administered Medications: No medications were administered Medication: 15:27 VIS not applicable for this client. hb Outcome: 15:09 Discharge ordered by . rt 15:27 Discharged to home ambulatory, hb 15:27 Condition: stable 15:27 Discharge instructions given to patient, Instructed on discharge instructions, follow up and referral plans. medication usage, Demonstrated understanding of instructions, follow-up care, medications, Prescriptions given X 1, 15:28 Patient left the ED. hb Signatures: Evy Esteves RN RN Aaliyah Davis rg4 Mc Rosenberg MD MD rt Shanell Cagle RN RN nj1
[2022-11-26 15:38] VITALS: BP 117/79; TEMP 98.1; O2SAT 98
== END 2022-11-26 15:28 | disposition home or self-care (01) ==
LOC: ER 14:35
DX: R20.0 Anesthesia of skin (principal); E08.40 Diabetes mellitus due to underlying condition with diabetic neuropathy, unspecified
CPT/HCPCS: 99283

== ENCOUNTER 2023-01-09 04:19 | Emergency (ER) | payer SELFPAY ==
--- OUTSIDE RECORDS SUMMARY | 2023-01-09 04:22 | XMS REPORT | Continuity of Care Document ---
:1990 Author Organization [facility] t Address [address] [place] [address] [place] [id number] Care Team Providers Name Role Phone ANEL METZ Primary Care Physician Unavailable GHISLAINE SAMUEL Attending Clinician Unavailable Provider, Wang Duttap Attending Clinician Unavailable Ghislaine Samuel PA-C Attending Clinician Doctor Unassigned, [place] Attending Clinician Unavailable DAKOTA VALENZUELA Attending Clinician Unavailable TERRANCE ALICEA Attending Clinician Unavailable Terrance Alicea DDS Attending Clinician Joao Babcock DO Attending Clinician Anel Cisneros Attending Clinician [phone] ANEL METZ Attending Clinician Unavailable TERRANCE ALICEA Admitting Clinician Unavailable Terrance Alicea DDS Admitting Clinician Payers Payer Name Policy Type Policy Number Effective Date Expiration Date S [facility] [id number] 2018 00:00:00 Problems Condition Condition Condition Status [...] place 1 ity of 00:00: [place] 00 [facility] Submandibu Submandibu Disease Active 2020-02 U nivers lar lar 1-07 ity of abscess abscess 00:00: [place] 00 [facility] Cervical Cervical Disease Active Overview: Un nancy [...] glucose 2-13 ity of 00:00: [place] 00 [facility] Abnormal Abnormal Disease Active Unive rs maternal [...] y 2-11 ity of 00:00: [place] 00 [facility] Diet Diet Disease Active Overview: [facility] controlled controlled 4-10 A2GDM- it y of gestationa gestationa 00:00: glybnurid [facility] diabetes l diabetes 00 e 2.5 mg Medical mellitus mellitus Q am and Bran ch (GDM) in (GDM) in 5 mg Q pm second second trimester trimester High risk High risk Disease Active 2014-02 Uni vers , , 1-15 [place] [address] [place] [address] Allergies, Adverse Reactions, Alerts Allergy Allergy Status Severity Reaction(s) Onset Inactive Treating Comm ents Source Name Type Date Date Clinician No Known DA Active U [facility] All[facility]ie 06-09 [facility] 00:00: [address] NO KNOWN Drug Active [facility] ALLERGIE Class ity of [facility] Social History Social Habit Start Date Stop Date Quantity Comments Source Exposure to 2021-12-12 2021-12-22 Not sure [facility] SARS-CoV-2 00:00:00 12:38:00 [facility] (event) [place] Tobacco use and 2021-12-22 2021-12-22 Smokeless tobacco Un iversity of exposure 00:00:00 00:00:00 non-user [facility] [place] [facility] Alcohol intake 2021-12-22 2021-12-22 0 /d [facility] 00:00:00 00:00:00 [facility] [place] [facility] Tobacco Comment 2021-12-22 2021-12-22 smokes 3 Universit y of 00:00:00 00:00:00 cigarettes per [facility] day. pt states she Branch stopped smoking since she found out about . History of 2014-12-22 Cigarette Smoker Universi ty of tobacco use 00:00:00 [facility] [place] [facility] Sex Assigned At [birth year] Universit y of 00:00:00 00:00:00 [facility] [place] [facility] Smoking Status Start Date Stop Date Source Smokes tobacco daily 2021-12-22 00:00:00 Univers ity of [facility] [place] [facility] Medications Ordered Filled Start Stop Current Ordering Indication Dosage Frequency Signature Comments Components Source Medication Medication Date Date Medication? Clinician (SIG) Name Name etonogestre 2021-02- No [id number] 68mg Univers L 02-21 ity of (NEXPLANON) 19:15: 18:35 [place] implant 68 00 :00 Medical Branch etonogestre 2021-02- No [id number] 68mg 68 mg, Univers L 02-21 Subdermal, ity of (NEXPLANON) 19:15: 18:35 ONCE NOW, [place] implant 68 00 :00 1 dose, On Med ical mg Sat [place] 12/22/21 at 1415, Routine
Use approved by: BLENDING MACHINE OPERATOR etonogestre 2021-02- No [id number] 68mg Univers L 02-2105 ity of (NEXPLANON) 19:15: 18:35 [place] implant 68 00 :00 Medical mg Branch etonogestre 2021-02- No [id number] 68mg 68 mg, Univers L 02-21 Subdermal, ity of (NEXPLANON) 19:15: 18:35 ONCE NOW, [place] implant 68 00 :00 1 dose, On Med ical mg [facility] 12/22/21 at 1415, Routine
Use approved by: BLENDING MACHINE OPERATOR insulin 2021-02 Yes inject Univers degludec 1-05 under the ity of (TRESIBA 12:59: skin. [place] U-100 59 Medical INSULIN SC) Branch insulin 2021-02 Yes inject Univers degludec 1-05 under the ity of (TRESIBA 12:59: skin. [place] U-100 59 Medical INSULIN SC) Branch dapaglifloz [...] route for 30 days. cephALEXin 2021-02- No [id number] 500mg Take 1 Univers (KEFLEX) 02-21 capsule by ity of 500 mg 00:00: 05:59 mouth 4 [place] capsule 00 :00 (four) Medical times [place] daily for 7 days. cephALEXin 2021-02- No [id number] 500mg Take 1 Univers (KEFLEX) 02-21 capsule by ity of 500 mg 00:00: 05:59 mouth 4 [place] capsule 00 :00 (four) Medical times [place] daily for 7 days. ARIPiprazol Yes TAKE ONE Un nancy e 2 mg 9- (1) ity of tablet 00:00: TABLET(S) 00 BY MOUTH Medical IN THE [place] MORNING. ARIPiprazol Yes TAKE ONE Un nancy e 2 mg 9- (1) ity of tablet 00:00: TABLET(S) 00 BY MOUTH Medical IN THE [place] MORNING. dapaglifloz 2020-02 Yes Xigduo XR U [...] dapaglifloz 2020-02 Yes [facility] ity of n (XIGDUO [...] dose Medical (HumaLOG) + on [facility] 12/24/20 at Testing 0800, Until Discontinu ed, Routine lactated 2020-02 Yes 1000mL at 50 Univer s ringers IV 1-07 mL/hr, ity of infusion 07:30: 1,000 [place], [place] 1,000 [place] 00 IV Medical Infusion, Branch CONTINUOUS , Starting on [place] 12/24/20 at 0130, Until Discontinu ed, Routine naloxone 2020-02 Yes .1mg 0.1 mg, Univer s (NARCAN) 1-07 Slow IV ity of injection 07:21: Push, PRN Negro as 0.1 mg 11 - SEE Medical INSTRUCTIO [place] NS, Starting on [place] 12/24/20 at 0121, Until Discontinu ed, Routine, Sedation/R espiratory Depression , See admin instructio ns. morpHINE 2020-02- No 2mg 2 mg, Slow Un nancy injection 2 07 11-09 IV Push, ity of mg 07:21: 07:20 Q3HPRN, [place] 11 :11 Starting Medical on [facility] 12/24/20 at 0121, Until 12/26/20 at 0120, Routine, Pain (scale 7-10) HYDROcodone 2020-02 Yes 1{tbl} 1 tablet, Univers -acetaminop 1-07 Oral, ity of hen (NORCO 07:21: Q6HPRN, [place] 5) 5-325 mg 10 Starting Medi aleksey tablet 1 on [facility] tablet 12/24/20 at 0121, Until Discontinu ed, Routine, Pain (scale 4-6) ibuprofen 2020-02 Yes 600mg 600 mg, Univ ers (ADVIL 1-07 Oral, ity of CHILDREN'S) 07:21: Q6HPRN, Negro as 100 mg/5 mL 04 Starting Medi aleksey oral on [facility] suspension 12/24/20 at 600 mg 0121, Until Discontinu ed, Routine, Pain (scale 1-3) ondansetron 2020-02 Yes 4mg 4 mg, Slow Univers (ZOFRAN 1-07 IV Push, ity of (PF)) 07:20: Q4HPRN, [place] injection 4 54 Starting Medi aleksey mg on [place] Branch 12/24/20 at 0120, Until Discontinu ed, Routine, Nausea and Vomiting (N/V) chlorhexidi 2020-02 Yes [id number] 15mL Swish and Univers ne 0.12 % 1-07 spit out ity of mouthwash 00:00: 15 mL 2 [place] 00 (two) Medical times Branch daily. ibuprofen 2020-02 Yes [id number] 600mg Take 30 mL Univers 100 mg/5 mL 1-07 by mouth ity of oral 00:00: every 6 [place] suspension 00 (six) Medical hours as Branch needed for Pain (scale 1-3). chlorhexidi 2020-02 Yes [id number] 15mL Swish and Univers ne 0.12 % 1-07 spit out ity of mouthwash 00:00: 15 mL 2 [place] 00 (two) Medical times Branch daily. ibuprofen 2020-02 Yes [id number] 600mg Take 30 mL Univers 100 mg/5 mL 1-07 by mouth ity of oral 00:00: every 6 [place] suspension 00 (six) Medical hours as Branch needed for Pain (scale 1-3). chlorhexidi 2020-02 Yes [id number] 15mL Swish and Univers ne 0.12 % 1-07 spit out ity of mouthwash 00:00: 15 mL 2 [place] 00 (two) Medical times Branch daily. ibuprofen 2020-02 Yes [id number] 600mg Take 30 mL Univers 100 mg/5 mL 1-07 by mouth ity of oral 00:00: every 6 [place] suspension 00 (six) Medical hours as Branch needed for Pain (scale 1-3). chlorhexidi 2020-02 No [id number] 15mL Swish and Univers ne 0.12 % 02-23 11-05 spit out ity o f mouthwash 00:00: 00:00 15 mL 2 [place] 00 :00 (two) Medical times Branch daily. ibuprofen 2020-02- No [id number] 600mg Take 30 mL Univers 100 mg/5 mL 1-07 11-05 by mouth ity of oral 00:00: 00:00 every 6 [place] suspension 00 :00 (six) Medical hours as Branch needed for Pain (scale 1-3). chlorhexidi 2020-02- No [id number] 15mL Swish and Univers ne 0.12 % 02-23 spit out ity o f mouthwash 00:00: 00:00 15 mL 2 [place] 00 :00 (two) Medical times Branch daily. ibuprofen 2020-02- No [id number] 600mg Take 30 mL Univers 100 mg/5 [...] Indication s: acute pain amoxicillin 2020-02- No [id number] 1{tbl} Take 1 Univers -clavulanat 02-23 tablet by it y of e 00:00: 05:59 mouth 2 [place] (AUGMENTIN) 00 :00 (two) Medical 875-125 mg times Branch per tablet daily for 7 days. Blood-Gluco Yes [id number] Use as Univers se Meter 2-18 directed ity of (FREESTYLE 00:00: [place] LITE METER) 00 Medical Kit Branch blood sugar Yes [id number] Use as Univers diagnostic 2-18 directed ity o f (FREESTYLE 00:00: [place] LITE 00 Medical STRIPS) Branch strip lancets 17 Yes [id number] Use as U nivers gauge Misc 2-18 directed ity o f 00:00: [place] 00 Medical Branch Blood-Gluco Yes [id number] Use as Univers se Meter 2-18 directed ity of (FREESTYLE 00:00: [place] LITE METER) 00 Medical Kit Branch blood sugar Yes [id number] Use as Univers diagnostic 2-18 directed ity o f (FREESTYLE 00:00: [place] LITE 00 Medical STRIPS) Branch strip lancets 17 Yes [id number] Use as U nivers gauge Misc 2-18 directed ity o f 00:00: [place] 00 Medical Branch Blood-Gluco 2019-0 Yes [id number] Use as Univers se Meter 2-18 directed ity of (FREESTYLE 00:00: [place] LITE METER) 00 Medical Kit Branch lancets 17 2018-0 Yes [id number] Use as U nivers gauge Misc 2-18 directed ity o f 00:00: [place] 00 Medical Branch Blood-Gluco 2019-0 Yes [id number] Use as Univers se Meter 2-18 directed ity of (FREESTYLE 00:00: [place] LITE METER) 00 Medical Kit Branch lancets 17 2018-0 Yes [id number] Use as U nivers gauge Misc 2-18 directed ity o f 00:00: [place] 00 Medical Branch Blood-Gluco 2019-0 Yes [id number] Use as Univers se Meter 2-18 directed ity of (FREESTYLE 00:00: [place] LITE METER) 00 Medical Kit Branch blood sugar 0 Yes [id number] Use as Univers diagnostic 2-18 directed ity o f (FREESTYLE 00:00: [place] LITE 00 Medical STRIPS) Branch strip lancets 17 2018-0 Yes [id number] Use as U nivers gauge Misc 2-18 directed ity o f 00:00: [place] 00 Medical Branch Blood-Gluco 2018-0 Yes [id number] Use as Univers se Meter 2-18 directed ity of (FREESTYLE 00:00: [place] LITE METER) 00 Medical Kit Branch blood sugar 2019-0 Yes [id number] Use as Univers diagnostic 2-18 directed ity o f (FREESTYLE 00:00: [place] LITE 00 Medical STRIPS) Branch strip lancets 17 2018-0 Yes [id number] Use as U nivers gauge Misc 2-18 directed ity o f 00:00: [place] 00 Medical Branch Blood-Gluco 2019-0 Yes [id number] Use as Univers se Meter 2-18 directed ity of (FREESTYLE 00:00: [place] LITE METER) 00 Medical Kit Branch blood sugar 2019-0 Yes [id number] Use as Univers diagnostic 2-18 directed ity o f (FREESTYLE 00:00: [place] LITE 00 Medical STRIPS) Branch strip lancets 17 2018-0 Yes [id number] Use as U nivers gauge Misc 2-18 directed ity o f 00:00: [place] 00 Medical Branch Blood-Gluco 2019-0 Yes [id number] Use as Univers se Meter 2-18 directed ity of (FREESTYLE 00:00: [place] LITE METER) 00 Medical Kit Branch blood sugar Yes [id number] Use as Univers diagnostic 2-18 directed ity o f (FREESTYLE 00:00: [place] LITE 00 Medical STRIPS) Branch strip lancets 17 Yes [id number] Use as U nivers gauge Misc 2-18 directed ity o f 00:00: [place] 00 Medical Branch Blood-Gluco Yes [id number] Use as Univers se Meter 2-18 directed ity of (FREESTYLE 00:00: [place] LITE METER) 00 Medical Kit Branch blood sugar Yes [id number] Use as Univers diagnostic 2-18 directed ity o f (FREESTYLE 00:00: [place] LITE 00 Medical STRIPS) Branch strip lancets 17 Yes [id number] Use as U nivers gauge Misc 2-18 directed ity o f 00:00: [place] 00 Medical Branch blood sugar 2021- No [id number] Use as Univers diagnostic 2-18 12-22 directed ity of (FREESTYLE 00:00: 00:00 [place] LITE 00 :00 Medical STRIPS) Branch strip blood sugar 2021- No [id number] Use as Univers diagnostic 2-18 12-22 directed ity of (FREESTYLE 00:00: 00:00 [place] LITE 00 :00 Medical STRIPS) Branch strip Yes [id number] 1{packe Take 1 Univers vit 2-12 t} Packet by ity of 33-iron-fol 00:00: mouth [place] ic-dha 00 daily. Medical (SELECT-OB Branch + DHA) 29 mg iron-1 mg -250 mg combo pack Yes [id number] 1{packe Take 1 Univers vit 2-12 t} Packet by ity of 33-iron-fol 00:00: mouth [place] ic-dha 00 daily. Medical (SELECT-OB Branch + DHA) 29 mg iron-1 mg -250 mg combo pack Yes [id number] 1{packe Take 1 Univers vit 2-12 t} Packet by ity of 33-iron-fol 00:00: mouth [place] ic-dha 00 daily. Medical (SELECT-OB Branch + DHA) 29 mg iron-1 mg -250 mg combo pack Yes [id number] 1{packe Take 1 Univers vit 2-12 t} Packet by ity of 33-iron-fol 00:00: mouth [place] ic-dha 00 daily. Medical (SELECT-OB Branch + DHA) 29 mg iron-1 mg -250 mg combo pack Yes [id number] 1{packe Take 1 Univers vit 2-12 t} Packet by ity of 33-iron-fol 00:00: mouth [place] ic-dha 00 daily. Medical (SELECT-OB Branch + DHA) 29 mg iron-1 mg -250 mg combo pack Yes [id number] 1{packe Take 1 Univers vit 2-12 t} Packet by ity of 33-iron-fol 00:00: mouth [place] ic-dha 00 daily. Medical (SELECT-OB Branch + DHA) 29 mg iron-1 mg -250 mg combo pack Yes [id number] 1{packe Take 1 Univers vit 2-12 t} Packet by ity of 33-iron-fol 00:00: mouth [place] ic-dha 00 daily. Medical (SELECT-OB Branch + DHA) 29 mg iron-1 mg -250 mg combo pack 2021- No [id number] 1{packe Take 1 Univers vit 2-12 11-05 t} Packet by ity of 33-iron-fol 00:00: 00:00 mouth [place] ic-dha 00 :00 daily. Medical (SELECT-OB Branch + DHA) 29 mg iron-1 mg -250 mg combo pack 2021- No [id number] 1{packe Take 1 Univers vit 2-12 11-05 t} Packet by ity of 33-iron-fol 00:00: 00:00 mouth [place] ic-dha 00 :00 daily. Medical (SELECT-OB Branch + DHA) 29 mg iron-1 mg -250 mg combo pack Vital Signs Vital Name Observation Time Observation Value Comments Source Systolic blood 2021-12-22 17:38:00 119 mm[Hg] Univer sity of pressure [facility] [place] [facility] Diastolic blood 2021-12-22 17:38:00 77 mm[Hg] Unive rsselect medical [facility] Heart rate 2021-12-22 17:38:00 76 /min Universi ty of [facility] [place] [facility] Body temperature 2021-12-22 17:38:00 35.83 [place] Univ ersity of [facility] [place] [facility] Respiratory rate 2021-12-22 17:38:00 18 /min Univ ersity of [facility] [place] [facility] Body height 2021-12-22 17:38:00 154.9 cm Universi ty of [facility] [place] [facility] Body weight 2021-12-22 17:38:00 60.51 kg Universi ty of [facility] [place] [facility] BMI 2021-12-22 17:38:00 25.21 kg/m2 Universi ty of [facility] [place] [facility] Systolic blood 2020-12-24 17:05:00 125 mm[Hg] Univer sity of pressure [facility] Branch Diastolic blood 2020-12-24 17:05:00 87 mm[Hg] Unive rsity of pressure [facility] [place] [facility] Heart rate 2020-12-24 17:05:00 91 /min Universi ty of [facility] [place] [facility] Body temperature 2020-12-24 17:05:00 36.22 [place] Univ ersity of [facility] [place] [facility] Respiratory rate 2020-12-24 17:05:00 18 /min Univ ersity of [facility] [place] [facility] Oxygen saturation in 2020-12-24 17:05:00 98 /min University of Arterial blood by [facility] Pulse oximetry Branch Body weight 2020-12-24 06:32:00 68.04 kg Universi ty of [facility] [place] [facility] BMI 2020-12-24 06:32:00 28.34 kg/m2 Universi ty of [facility] [place] [facility] Systolic blood 2020-04-28 16:31:00 106 mm[Hg] Univer sity of pressure [facility] Diastolic blood 2020-04-28 16:31:00 73 mm[Hg] Unive rsity of pressure [facility] Heart rate 2020-04-28 16:31:00 77 /min Universi ty of [facility] [place] [facility] Body temperature 2020-04-28 16:31:00 36.72 [place] Univ ersity of [facility] Branch Respiratory rate 2020-04-28 16:31:00 16 /min Univ ersity of [facility] [place] [facility] Body height 2020-04-28 16:31:00 154.9 cm Universi ty of [facility] [place] [facility] Body weight 2020-04-28 16:31:00 59.081 kg Universi ty of [facility] [place] [facility] BMI 2020-04-28 16:31:00 24.61 kg/m2 Universi ty of [facility] Branch Systolic blood 2020-04-28 16:31:00 106 mm[Hg] Univer sity of pressure [facility] [place] [facility] Diastolic blood 2020-04-28 16:31:00 73 mm[Hg] Unive rsity of pressure [facility] [place] [facility] Heart rate 2020-04-28 16:31:00 77 /min [facility] Body temperature 2020-04-28 16:31:00 36.72 [place] [facility] Respiratory rate 2020-04-28 16:31:00 16 /min [facility] Body height 2020-04-28 16:31:00 154.9 cm [facility] Body weight 2020-04-28 16:31:00 59.081 kg [facility] BMI 2020-04-28 16:31:00 24.61 kg/m2 [facility] Procedures Procedure Date / Time Performed Performing Clinician Sour e POCT TEST 2021-12-22 17:49:00 Ghislaine Samuel [facility] GARDASIL 9 (HPV 9V) 2021-12-22 17:48:52 Glenda Samuelasha [facility] VACCINE [facility] ASSIGNMENT OF BENEFITS 2021-12-22 17:24:31 Doctor Unassigned, No [facility] EXTERNAL PROVIDER 2021-01-02 06:01:00 Doctor Unassigned, No [facility] POCT GLUCOSE 2020-12-24 14:10:00 Terrance Alicea [facility] (AUTOMATED) [facility] ASSIGNMENT OF BENEFITS 2020-04-28 17:41:20 Doctor Unassigned, No [facility] FLU VACC ([id number]), 2020-04-28 17:21:26 Anel Metz [facility] 6+ MONTHS, IM, QUAD Medical Bran ch Encounters Start End Encounter Admission Attending Care Care Encounter Source Date/Time Date/Time Type Type Clinicians Facility Department ID 2022-12-13 2022-12-13 Outpatient [facility] [id number] Stephanie Nunn 10:21:56 10:21:56 Rema F Nicolás 2022-11-30 2022-11-30 Outpatient [facility] [id number] Edouard 12:58:22 12:58:22 1014 F Nicolás 2021-12-22 2021-12-22 Outpatient Emily JIMMIE [facility] [id number] Univers 12:45:00 13:22:01 GHISLAINE [facility] 2021-12-22 2021-12-22 Office Provider, [facility] Temp [facility] [id number] Univers 12:45:00 13:22:01 Visit Liamlucia Ghislaine BLENDING MACHINE OPERATOR [id number] ity of [facility] [id number] Negro as MATERNAL [id number] Med ical & CHILD [address] [place] [address] 2021-12-22 2021-12-22 Orders Doctor SAMMY [id number] Univers 00:00:00 00:00:00 Only Unassigned, GIL [id number] ity of [place] [facility] [id number] Negro as [id number] [address] 2021-01-02 2021-01-02 Orders Doctor SAMMY [id number] Univers 00:00:00 00:00:00 Only Unassigned, GIL [id number] ity of [place] [facility] [id number] Negro as [phone] [address] 2020 2020 Outpatient R DARRELL [facility] [id number] Univers 14:00:00 14:00:00 [facility] 2020-12-26 2020-12-26 Outpatient Emily ALICEA [facility] [id number] Univers 16:30:00 16:30:00 [facility] 2020-12-24 2020-12-24 Outpatient X DARRELL [facility] HERMILO [id number] Univers 01:34:00 17:25:00 [facility] 2020-12-24 2020-12-24 Emergency DIVINE [place] [id number] Univers 01:34:00 17:25:00 Terrance CORDERO [id number] it y of [facility] 4.2.7.2.686 Negro as [id number] [facility] 091 Branch 2020-05-09 2020-05-09 Patient Sadiq IAYANELIS [id number] 00:00:00 00:00:00 Outreach Joao PRIMARY [id number] Kostas CARE 4.2.7.2.686 PAVILLION [id number] 2020-05-09 2020-05-09 Patient Sadiq [facility] [id number] Univers 00:00:00 00:00:00 Outreach Joao PRIMARY [id number] [facility] 4.2.7.2.686 [place] ANDREW[place] [id number] Az dical [address] [place] [address] 2020-04-28 2020-04-28 Office Isaías [facility] [id number] 10:17:04 11:41:16 Visit Anel Munguia BLENDING MACHINE OPERATOR [id number] [facility] 4.2.7.2.686 MATERNAL [id number] & CHILD [address] [place] [address] 2020-04-28 2020-04-28 Office Isaías [facility] [id number] [facility] 10:17:04 11:41:16 Visit Anel Munguia BLENDING MACHINE OPERATOR [id number] ity of [facility] [id number] Negro as MATERNAL [id number] Med ical & CHILD [address] [place] [address] 2020-04-28 2020-04-28 Outpatient R ISAÍAS [facility] [id number] Univers 10:15:00 10:15:00 ANEL valdez o f [facility] 2020-04-28 2020-04-28 Orders Doctor SAMMY [id number] Univers 00:00:00 00:00:00 Only Unassigned, GIL [id number] ity of [place] [facility] [id number] Negro as [id number] [facility] 009 [place] Results Test Description Test Time Test Comments Results Result Comments Source LIPID PANEL 2022-12-02 03:43:12 Test Item Value Reference Range Interpretation Comme nts CHOLESTEROL (test code = 2210) 294 MG/DL <200 H TRIGLYCERIDES (test code = 2232) 280 MG/DL <150 H HDL CHOLESTEROL (test code = 62 MG/DL >39 2219) CALC LDL CHOL (test code = 2237) 182 MG/DL <100 H NOTE: CALCULATED LDL IS BASED ON MAGGIE-HINOJOSA METHOD WHICHINCLUDES A DJUSTABLE TRIGLYCERIDE:VL DL CHOLESTEROL RATIO.THIS FACT OR VARIES BY MEASURED TRIGLY CERIDE AND NON-HDLCHOLESTE ROL CONCENTRATIONS WITH INCREASED CALCULATED LDL SEENIN HIGHER T RIGLYCERIDE OR LOWER NON-HDL S PECIMENS. FOR MOREINFORMATION , SEE CLIENT ANNOUNCEMENT AT [email or web address] RISK RATIO LDL/HDL (test code = 2.94 RATIO <3.22 2237) COMPREHENSIVE METABOLIC [id number] 03:43:12 Test Item Value Reference Range Interpretation Comments GLUCOSE (test code = 507 MG/DL 70-99 HH RESULT S RECHECKED 2216) AND VERIFIED BUN (test code = 13 MG/DL 6-20 2207) CREATININE (test 0.80 MG/DL 0.60-1.30 code = 2214) eGFR (2020 CKD-EPI) 101 >60 (test code = 31072) ML/MIN/1.73 CALC BUN/CREAT (test 16 RATIO 6-28 code = 2235) SODIUM (test code = 133 MEQ/L 235-195 3530) POTASSIUM (test code 4.5 MEQ/L 3.5-5.4 = 2227) CHLORIDE (test code 97 MEQ/L 95-107 = 2215) CARBON DIOXIDE (test 22 MEQ/L 19-31 code = 2206) CALCIUM (test code = 10.2 MG/DL 8.5-10.5 2208) PROTEIN, TOTAL (test 7.6 G/DL 6.1-8.3 code = 2229) ALBUMIN (test code = 4.6 G/DL 3.5-5.2 2200) CALC GLOBULIN (test 3.0 G/DL 1.9-3.7 code = 2240) CALC A/G RATIO (test 1.5 RATIO 1.0-2.6 code = 2234) BILIRUBIN, TOTAL 0.3 MG/DL <=1.2 (test code = 2207) ALKALINE PHOSPHATASE 96 U/L 40-114 (test code = 2204) AST (test code = 11 U/L 9-40 2218) ALT (test code = 13 U/L 5-40 UNLESS OTH ERWISE 2219) INDICATED, ALL TESTING PERFORM ED AT [facility], [facility]. [address] [place] [address] [facility] EVERETTLucia PARIKH DIRECTOR: Sierra OROPEZA DOUG NUMBER [id number] CAP ACCREDITATION N O. [id number] HEMOGLOBIN [id number] 02:28:23 Test Item Value Reference Range Interpretation Comments HEMOGLOBIN A1c (test 12.9 % 4.2-5.6 H AMERIC AN DIABETES code = 24948) ASSOCIATION IDELINES FOR HGB A1C: PREDIABETES/INC REASED RISK . . . . . . . 5 .7-6.4% DIAGNOSIS OF DI ABETES . . . . . . . . . >=6 .5% WITH CONFIRMATION OR APPROPRIATE SYMPTOMS NOTE: ASSAY MAY BE AFFECTED BY HEMOGLOBINOPATH IES (SICKLE CELL ANEMIA, S- C DISEASE, OTHERS) OR VIRGEN FICIALLY LOWERED BY DECR EASED RED CELL SURVIVAL ( HEMOLYTIC ANEMIAS, BLOOD LOSS, ETC.). CONSIDER ALTERN ATE TESTING OR LABORATORY C ONSULTATION. POCT [id number] 17:50:00 Test Item Value Reference Range Interpretation Comments POCT PREG (test code = 1605) Negative On board controls acceptable with C Yes Line (test code = 3574) POCT PREG LOT # (test code = 3575) POCT PREG TEST DATE (test code = 3576) [facility] [place] [id number] 17:50:00 Test Item Value Reference Range Interpretation Comments POCT PREG (test code = 1605) Negative On board controls acceptable with C Yes Line (test code = 3574) POCT PREG LOT # (test code = 3575) POCT PREG TEST DATE (test code = 3576) [facility] RT-PCR/[id number] 17:22:59 Test Item Value Reference Interpretation Comments Range SARS-CoV-2 NEGATIVE SEE NOTE SARS-CoV-2 RNA NOT INTERPRETATION DETECTEDNegat zelda (test code = 12910) results do not preclude SARS-C oV-2 infection [...] (test code = NASOPHARY[place]: [place] [address]) Juliana Leeann Zahira l-Time RT-PCR. The exp [...] provided by met hod given in report:https:// www.[employer].com/clinic ians/cl ient-communicat ions/ Alternatively, see downloadable PD F fact sheet at:https://www. [employer]/COVID-19-R T-PCR UNLESS OTHERWIS E INDICATED, ALL TESTING PERFORMED [facility], [place]. [address] [place] [id number] SHANIA RASHID DIRECTOR: Sierra JORDANIA NUMBER [id number] CAP ACCREDITATION N O. [id number] POCT GLUCOSE (AUTOMATED)2020-12-24 14:12:21 Test Item Value Reference Range Interpretation Comments POCT GLU (test code = 5380434976) 212 mg/dL 70-110 H Lab Interpretation (test code = Abnormal 00456-5) [facility] 15:58:00 Test Item Value Reference Range Interpretation Comments GLUBED (test code = GLUBED) 148 mg/dL 65-110 H [id number] 10:51:00 Test Item Value Reference Range Interpretation Comments GLUBED (test code = GLUBED) 174 mg/dL 65-110 H [id number] 06:04:00 Test Item Value Reference Range Interpretation Comments GLUBED (test code = GLUBED) 83 mg/dL 65-110 N GLYCOSYLATED HEMOGLOBIN [id number] 04:40:00 Test Item Value Reference Range Interpretation [...] H (test code = MBG) COMPREHENSIVE METABOLIC [id number] 04:40:00 Test Item Value Reference Range Interpretation [...] fructosaminesho uld be considered for these patients. [id number] 00:14:00 Test Item Value Reference Range Interpretation Comments GLUBED (test code = GLUBED) 194 mg/dL 65-110 H COMPREHENSIVE METABOLIC [id number] 21:06:00 Test Item Value Reference Range Interpretation [...] (HA1C) (test code = GLYHGB) CBC W/AUTO [id number] 20:53:00 Test Item Value Reference Range Interpretation [...] (test NORMAL NORMAL code = PLTMR) URINALYSIS [id number] 20:08:00 Test Item Value Reference Range Interpretation [...] #/hpf NONE SEEN A URINE SAMPLE: CLEAN [id number] 20:01:00 Test Item Value Reference Range Interpretation Comments GLUBED (test code = GLUBED) 196 mg/dL 65-110 H URINALYSIS [id number] 19:53:00 Test Item Value Reference Range Interpretation [...] CATCH Notes Date/Time Note Provider Source 2018-06-17 17:42:00 [id number] [address] [facility] [place] [address] PATIENT NAME: AILYN MCCOY ADMIT DATE: 06/09/18ACCOUNT NO: [id number] JOSE Arnold NO: F.3026 AGE: 27 SEX: F ADMITTING PHYSICIAN: Richard Bojorquez MD ATTENDING PHYSICIAN: Richard Bojorquez MD ADMISSION DATE: 06/09/2018 TRIAGE EVALUATION Admission to [facility] for observation. For evaluation on [address] Aponte. The patient was seen in the MA C unit as no doc patient, then admitted forobs wit h Dr. Bojorquez accepting the patient's care. HISTORY OF PRESENT ILLNESS: The patient is a 27-year-old G2, P0-1-0-1 withunsure last menstrual period an d estimated date of confinement 09/16/2018. Shepresented at 25-6/7 weeks. She reports she wa s told to come to the hospital forelevated blood glucose levels. She states that a week ago, she had her 1-hourGlucola, which was elevated, then a 3-hour GTT, which was also abnormal. Shehas been checking her sugars at home. She was not previously diagnosed withdiabetes except in a prior with diet-controlled gestational diabetes.She states testing 6 weeks after that delivery was negative and she had had nosymptoms of abnormal blood glucose levels since. She was seeing Dr. Moreno forprenatal care and started on Toujeo 5 days ago. She was receiving 5 unitsdaily. She states that after lunch with 3 slices of mckinney and one egg, hersugar was greate r than 330. She used her Toujeo. Now on arrival in the [facility],her blood glucose level is 196. She is given 6 units of regular insulin persliding scale. Her care began with Dr. Moreno in April. She has had 5 or 6 visits withmultiple visits in the last 2 weeks due to the elevated blood glucose levels.She states she did have a placenta covering the opening of her cervix, butotherwise all ultrasounds were normal. She states her hemoglobin A1c was 8.8 .She also states she was told she has anemia. Otherwise, the patient reports herlabs have been normal. PAST MEDICAL HISTORY: Negative (the patient denies prior history of diabetesoutside of past ). PAST SURGICAL HISTORY: Laparoscopic appendectomy in 2005 and wisdom teeth [id number]. ALLERGIES: NO KNOWN DRUG ALLERGIES. MEDICATIONS: vitamins and Toujeo. OBSTETRICAL HISTORY: In 2016, a 34-week vaginal delivery following inductionfor -induced hypertension. She was delivered of a male infant weighing6 pounds 7 ounces. In addition to the severe PIH, she also had diet-controlled PATIENT NAME: AILYN MCCOY gestational diabetes in that , otherwis e no complications. GYNECOLOGIC HISTORY: Menarche at age 14 with irregular periods every 2 to 3months, lasting 6 to 7 days, moderate in amount with minimal cramping. She wasdiagnosed with gonorrhea in 2008. She and her partner were treated and alltesting since have been negative. All Pap smears normal. She has been using LoLoestrin control pill. This was an unplanned . She last usedthe pill in March. SOCIAL HISTORY: One pack per day tobacco use for 7 years. She is trying towean of f cigarettes now. Occasional pre- and early first trimesteralcohol use before learning she was . The patient denies history ofillicit drugs. She lives with her son. She has no longer involved with thefather of her baby. She has no information on his health. She states shedrinks 4 to 6 beers per weekend and she state s that she lost her significantother, when he suddenly she was very sad and she was drinking heavily at [employer] and which resulted i n this . 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 She is on leav e at this time. She has no information onthe healt h of her parents or grandparents as she was adopted. Her sister isknown to be insulin-dependent diabetic, diagnosed at age 23. REVIEW OF SYSTEMS: A 12-point review of systems is negative except as statedabove. PHYSICAL EXAMINATION:GENERAL: The patient is a well-nourished, well-developed white female in noacute distress.VITAL SIGNS: Height 5 feet, weight prior to the 120 pounds and atmost recent visit to clinic 135 pounds. The patient is lying in the hospitalstretcher in MAC unit triage. Temperature 97.7, respirations 18, pulse 74,blood pressure 108/62.NECK: Within normal limits without lymphadenopathy or thyromegaly.CHEST: Clear to auscultation bilaterally with regular rate and rhythm.BREASTS : Deferred.ABDOMEN: Soft, nontender, gravid with a fundal height 4 cm above the umbilicus.PELVIC: Deferred.EXTREMITIES: Without edema. Bilateral patellar reflexes, 2+.NEUROLOGIC: Nonfocal. The patient is awake, alert, and oriented x3. LABORATORY DATA: At admission, white blood cell 8.6, hemoglobin 9.3, lsrdlvuanb14.4, and platelets 360,000. Sodium 135, potassium 4.0, chloride 101,bicarbonate 21, BUN 10, creatinine 0.7, and glucose 176. ALT and AST slightlylow at 10 and 11 respectively, alkaline phosphatase 78. Hemoglobin A1c 8.2.Urine shows 3+ glucose, otherwise negative with 0 to 2 RBCs, 2 to 5 WBCs , andfew epithelial cells. DIAGNOSTIC DATA: NST with baseline heart tones in the 140s to 150s range.Accelerations consistent with gestational age. Occasional variable decels, nocontractions noted. ASSESSMENT AND PLAN: I spoke to Dr. Bojorquez and he agreed to accept the patientto his service. She is started on insulin sliding scale. Nutritional consultand hospital educator will see the patient in the morning. e will have asocial service consult as well. PATIENT NAME: AILYN MCCOY The patient is a 27-year-old G2, P0-1-0-1 at 25-6/7th weeks with recentlydiagnose d diabetes in the second trimester, now poorly controlled. Admit to Dr Bojorquez as above. The patient is also a smoker and has a very poor social situation. The patient is also strongly encouraged to quit smoking altogether. 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 Dictated By: Kathy Corona MD WT: HP:F.[facility]/YESSY/NTSDD: 06/17/2018 17:42:01DT: 06/17/2018 19:58:20Conf#: [id number]/DID#: [id number] and Edited by aKthy Corona MD On 07/08/18 8:40:30 AM at 0843 PATIENT NAME: AILYN MCCOY and physical pgylwliwnux6176-42-68R63:58:00F.[id number] A VAvailable for patient [id number]:43:56 2018-06-10 14:02:00 [id number]:02:00 [facility]OB Disch UndeliveredREPORT#:[id number] REPORT STATUS: SignedDATE:06/10/18 TIME: 1402 PATIENT: AILYN MCCOY UNIT #: [id number]#: [id number] ROOM/BED: [facility]-ADOB: [birth year] AGE : 27 SEX: F ATTEND: Richard Bojorquez MDADM AUTHOR: Richard Bojorquez MD * ALL edits or amendments must be made on the electronic/computer document * Subjective SubjectivePatient reports: Patient reports: No: complaints. Comments:PLZ SEE NOTE EARLIER, I SAW HER EARLIER Objective GeneralVS:Last Documented: Result Date Time B/P Mean 73.0 06/10 0905 B/P 101/58 06/10 0905 Temp 97.6 06/10 0905 Pulse 77 06/10 0905 Resp 18 06/10 0905 Vital Signs Date Temp Pulse Resp B/P B/P Mean Pulse Ox FiO2 06/09-06/10 97.6-98.3 77-94 18 101-112/58-69 73.0-85.0 Physical ExamFH R evaluation: Baby A baseline: 140 bpm Baby A variability: moderate 6-25 bpm Baby A accelerations: 10 X 10 Baby A FHR category: category 1HEENT: normocephalic w/o injuryLungs: clear to auscultationNeuro: Exam: alert, oriente d x3, normal speechAbdomen: gravid, soft, no abnormal tenderness Discharge Undelivered Discharge UndeliveredAssessment:Patient is a 27 year old at 25.6 WEEKS gestation admitted for uncontrolled GDMPlan:d/c home on insulinHospital course:she was admitted and started on weight based insulin , sugars went downConsultation(s) performed: Consultation performed: NUTRITION/DIABETES EDUCATION at 1404 RPT #:[id number] OF REPORT OBObstetric [id number]:02:00F.[id number] isabel able for patient lovlKVQTRLLXOYXVKB3673-96-53K06:05:44 2018-06-10 14:02:00 [id number]:02:00 [facility])OB Disch UndeliveredREPORT#:[id number] REPORT STATUS: SignedDATE:06/10/18 TIME: 1402 PATIENT: AILYN MCCOY UNIT #: [id number]#: [id number] [address] [birth year] AGE : 27 SEX: F ATTEND: Richard Bojorquez MDA AUTHOR: Richard Bojorquez MD * ALL edits or amendments must be made on the electronic/computer document * See AddendumSubjective SubjectivePatient reports: Patient reports: No: complaints. Comments:PLZ SEE NOTE EARLIER, I SAW HER EARLIER Objective GeneralVS:Last Documented: Result Date Time B/P Mean 73.0 06/10 0905 B/P 101/58 06/10 0905 Temp 97.6 06/10 0905 Pulse 77 06/10 0905 Resp 18 06/10 09 Vital Signs Date Temp Pulse Resp B/P B/P Mean Pulse Ox FiO2 06/09-06/10 97.6-98.3 77-94 18 101-112/58-69 73.0-85.0 Physical ExamFHR evaluation: Baby A baseline: 14 0 bpm Baby A variability: moderate 6-25 bpm Baby A accelerations: 10 X 10 Baby A FHR category: category 1HEENT: normocephalic w/o injuryLungs: clear to auscultationNeuro: Exam: alert, oriente d x3, normal speechAbdomen: gravid, soft, no abnormal tenderness Discharge Undelivered Discharge UndeliveredAssessment:Patient is a 27 year old at 25.6 WEEKS gestation admitted for uncontrolled GDMPlan:d/c home on insulinHospital course:she was admitted and started on weight based insulin , sugars went downConsultation(s) performed: Consultation performed: NUTRITION/DIABETES EDUCATION at 1404 Addendum 1: 06/10/18 1412 by Richard Bojorquez MD she will email me her sugar log in a week and weekly at 1412 RPT #:[id number] OF REPORT OBObstetric [id number]:02:00F.[id number] l able for patient bxhmVGHFXVRWIJLDFN5537-34-02R50:14:06 2018-06-10 13:15:00 [id number]:15:00 [facility])OB Admission / H PREPORT#:[id number] REPORT STATUS: SignedDATE:06/10/18 TIME: 1315 PATIENT: AILYN MCCOY UNIT #: [id number]#: [id number] [address] [birth year] AGE : 27 SEX: F ATTEND: Richard Bojorquez MDA AUTHOR: Richard Bojorquez MD * ALL edits or amendments must be made on the electronic/computer document * OB Admission H P HxChief complaint: I AM HPI:27 Y OLD at 25 6/7 weeks a patient o f Dr Moreno, was adnitted due to high sugars,up to 300-500 at home, no complaints when i saw her today around 7amPast medical history: gestationa l DMPast surgical history: denies PSHSocial history: no alcohol useMedications:Current Hospital Medications:Central Nervous System Agents Sig/Eddi Start time Last Medication Dose Route Stop Time Status Admin Acetaminophen 650 M G Q4H PRN PRN 06/10 0300 AC (ACETAMINOPHEN 325 PO 08/09 0259 MG TAB) Zolpidem Tartrate 5 MG BEDTIM E PRN PRN 06/10 0300 AC (AMBIEN 5 MG UDTAB) PO 07/10 0259 Electrolytic, Caloric, And Charles Sig/Sc h Start time Last Medication Dose Route Stop Time Status Admin Lactated Ringer's 1,000 ML ASDIR 06/09 2099 AC (LACTATED RINGERS) IV 08/08 2058 Gastrointestinal Drugs Sig/Eddi Start time Last Medication Dose Route Stop Time Status Admin Docusate Sodium 100 MG 0900,2100 06/10 0900 AC (DOCUSATE SODIUM 100 PO 08/09 0859 MG CAP) Al Hydrox/Mg Hydrox/ 30 ML Q4H PRN PRN 06/10 0300 A C Simethicone PO 08/09 0259 (MYLANTA 30 ML SUSP) Magnesium Hydroxide 30 ML Q6H PRN PRN 06/10 0300 AC (MILK OF MAGNESIA 30 PO 08/09 0259 ML UD) Ondansetron HCl 4 MG Q4H PRN PRN 06/10 0300 AC 06/10 (ZOFRAN 4 MG UD TAB) PO 08/09 0259 0913 Polyethylene Glycol 17 GM DAILY PRN PRN 06/10 0300 AC (POLYETHYLENE GLYCOL PO 08/09 0259 PKT) Hormones And Synthetic Substit Sig/Eddi Start richard e Last Medication Dose Route Stop Time Status Admi n Insulin Human Lispro 16 UNITS AC DIN 06/10 1630 AC (HumaLOG 3ML VIAL) SUBQ 08/09 1629 Insulin Human Lispro 12 UNITS AC BK 06/10 0730 AC (HumaLOG 3ML VIAL) SUBQ 08/09 0729 Insulin Human NPH 20 UNIT AC BK 06/10 0730 AC (HumuLIN N 3 ML) SUBQ 08/09 0729 Insulin Human NPH 16 UNIT BEDTIME 06/09 2230 AC 06/09 (HumuLIN N 3 ML) SUB Q 08/08 2229 2339 Glucagon 1 MG ASDIR PRN 06/09 2014 AC (GLUCAGON 1 MG/VIAL) IM 08/08 2013 Insulin Human Regular See Dose ASDIR PRN 06/09 2014 AC 06/10 (HumuLIN R 3 ml Vial) Insts (1) SUBQ 08/08 2014 1033 Serums, Toxoids, And Vaccines Sig/Eddi Start time Last Medication Dose Route Stop Time Status Admin Diphtheria/Pertussis/ 0.5 ML ONCE ONE 06/09 2100 DC Tetanus Vacc IM 06/09 2101 (ADACEL VACCINE) Influenza Virus 60 MCG ONCE ONE 06/09 2100 DC 06/09 Vaccine IM 06/09 2101 2338 (FLUZONE QUAD 2018- 2018 SYRINGE) Vitamins Sig/Eddi Start time Last Medication Dose Route Stop Time Status Admi n Multivi/Iron Carb/Fe 1 EA DAILY 06/10 0900 AC Sulf/FA/Prenat PO 08/09 0859 ( VITAMINS ) Dose Instructions:(1)Insulin Human Regular (HumuLIN R 3 ml Vial): SEE SLIDING SCALE (Admin Criteria) AllergiesCoded Allergies:No Known Allergies (06/09/18) Review of SystemsConstitutional:Denies: chills. Skin:Denies: abrasion. Allergy/Immun:Denies: allergic reaction. Eyes:Denies: redness. ENT:Denies: ear drainage. Respiratory:Denies: DO E (dyspnea on exertion). Cardiovascular:Denies: chest pain. GI:Denies: abdominal pain. :Denies : dysuria. Musculoskeletal:Denies: arthritis. Objective GeneralVS:Last Documented: Result Date Time B/P Mean 73.0 06/10 0905 B/P 101/58 06/10 0905 Temp 97.6 06/10 0905 Pulse 77 06/10 0905 Resp 18 06/10 0905 Vital Signs Date Temp Pulse Resp B/P B/P Mean Pulse Ox FiO2 06/09-06/10 97.6-98.3 77-94 18 101-112/58-69 73.0-85.0 Physical ExamHEENT: normocephalic w/o injuryCardiac: regular rate and rhythmLungs: clear to auscultationBreasts: deferredNeuro: Exam: alert, oriented x3, normal speechAbdomen: gravid, soft, no abnormal tendernessBaby A: Baby A baseline: 140 bpm Baby A variability: moderate 6-25 bpm Baby A accelerations: 10 X 10 Baby A FH R category: category 1 Diagnosis, Assessment Plan Diagnosis, Assessment PlanAssessment/Impression: IUP 25 6/7 WEEKS, GDM UNCONTROLLEDPlan: admit to observation, INSULIN WAS STARTEDConsultation(s): Consultation performed: NUTRITION/DIABETES EDUCATION at 1324 RPT #:[id number] OF REPORT HPHistory and physical rccxlttwyvw3159-90-71L88:15:00F.[id number] 5 AVAvailable for patient drnkKMXABPUBVUMSGA4083-35-94W24:25:42
[2023-01-09] MEDS ORDERED: MAGNES/ALUMIN/SIMET 30ML UCUP ONE (04:49)
[2023-01-09] MEDS ORDERED: METOCLOPRAMIDE 10 MG/2mL INJ ONE (04:49)
[2023-01-09] MEDS ORDERED: FAMOTIDINE 20 MG/2 ML VIAL IV ONE (04:49)
[2023-01-09 05:27] LABS: Absolute Lymphocytes (CBC) 2.9 K/uL (0.7-4.9); Lymphocytes % 30.5 % (15.3-44.8); MCV 79.4 fL (80-100); MPV 8.9 fL (7.6-11.3); Platelets 428 thou/uL (152-406); RBC Red Blood Cell Count 4.41 M/uL (3.86-4.86)
[2023-01-09 05:41] LABS: ALT/SGPT 19 U/L (13-56); AST/SGOT 6 U/L (15-37); Albumin 3.4 g/dL (3.4-5.0); Alkaline Phosphatase 71 U/L (45-117); BUN Blood Urea Nitrogen 9 mg/dL (7-18); Bicarbonate 20 mEq/L (21-32); Bilirubin Total 0.1 mg/dL (0.2-1.0); Glomerular Filtration Rate 85 ml/min (=/>90); Glucose Level 302 mg/dL (74-106); Potassium 3.5 mEq/L (3.5-5.1); Protein, Total 7.3 g/dL (6.4-8.2); Sodium Level 138 mEq/L (136-145)
[2023-01-09 05:42] LABS: Bilirubin Direct < 0.1 mg/dL (0-0.2); Bilirubin Indirect, Calculated ND mg/dL (0.2-0.8)
[2023-01-09] MEDS ORDERED: INSULIN REGULAR (HUMAN) 100 UNIT/ML ONE (06:16)
--- NOTE | 2023-01-09 07:11 | EDPHYS ---
Physician Documentation [facility] Name: Harriett Gillette Age: 32 yrs Sex: Female : 1990 Arrival Date: 01/09/2023 Time: 04:19 Bed 8 Private MD: ED Physician Nicolas Mcbride HPI: 01/09 06:14 This 32 yrs old Female presents to ER via EMS with complaints of intoxication, sp4 elevated blood sugar. 06:14 32-year-old female with history of at this time gid-canfpyq-ltzestkmr diabetes, sp4 presents with EMS for acute alcohol intoxication, feeling weak and unwell also elevated blood sugar. Patient denied vomiting denied passing out. Historical: - Allergies: 04:22 Codeine; rv 04:22 Hydrocodone-Acetaminophen; rv - PMHx: 04:22 Diabetes - IDDM; GESTATIONAL DM; heart valve dysfunction; Pre-eclampsia; rv - PSHx: 04:22 Appendectomy; rv - Immunization history:: Adult Immunizations up to date. - Social history:: Smoking status: Patient reports the use of cigarette tobacco products, smokes one pack cigarettes per day. - Family history:: not pertinent. ROS: 06:14 Constitutional: Negative for fever, chills, and weight loss, Eyes: Negative for injury, sp4 pain, redness, and discharge, ENT: Negative for injury, pain, and discharge, 06:14 All other systems are negative, Exam: 06:14 Constitutional: This is a well developed, well nourished patient who is awake, alert, sp4 and in no acute distress. Head/Face: Normocephalic, atraumatic. Eyes: Pupils equal round and reactive to light, extra-ocular motions intact. Lids and lashes normal. Conjunctiva and sclera are not injected. Cornea within normal limits. Periorbital areas with no swelling, redness, or edema. ENT: Nares patent. No nasal discharge, no septal abnormalities noted. Tympanic membranes are normal and external auditory canals are clear. Oropharynx with no redness, swelling, or masses, exudates, or evidence of obstruction, uvula midline. Mucous membranes moist. Neck: Trachea midline, no thyromegaly or masses palpated, and no cervical lymphadenopathy. Supple, full range of motion without nuchal rigidity, or vertebral point tenderness. Chest/axilla: Normal chest wall appearance and motion. Nontender with no deformity. No lesions are appreciated. Cardiovascular: Regular rate and rhythm with a normal S1 and S2. No gallops, murmurs, or rubs. Normal PMI, no JVD. No pulse deficits. Respiratory: Lungs have equal breath sounds bilaterally, clear to auscultation and percussion. No rales, rhonchi or wheezes noted. No increased work of breathing, no retractions or nasal flaring. Abdomen/GI: Soft, non-tender, with normal bowel sounds. No distension or tympany. No guarding or rebound. No evidence of tenderness throughout. Back: No spinal tenderness. No costovertebral tenderness. Skin: Warm, dry with normal turgor. Normal color with no rashes, no lesions, and no evidence of cellulitis. MS/ Extremity: Pulses equal, no cyanosis. Neurovascular intact. Full, normal range of motion. Neuro: Awake and alert, GCS 15, oriented to person, place, time, and situation. Cranial nerves II-XII grossly intact. Motor strength 5/5 in all extremities. Sensory grossly intact. Psych: Awake, alert, with orientation to person, place and time. Behavior, mood, and affect are within normal limits Vital Signs: 04:20 BP 123 / 82; Pulse 104; Resp 18; Temp 98; Pulse Ox 100% ; Weight 57.61 kg; rv 05:30 BP 101 / 68; Pulse 87; Resp 16; Pulse Ox 99% ; jj7 07:47 BP 111 / 70; Pulse 97; Resp 16 S; Pulse Ox 99% on R/A; kc6 MDM: 04:27 Patient medically screened. sp4 07:08 Differential Diagnosis altered mental status, sepsis, flu. Data reviewed: vital signs, sp4 nurses notes, EMS record, old medical records, lab test result(s), CBC, electrolytes, hepatic panel, UPT: negative. Consideration of Admission/Observation Escalation of care including admission/observation considered. ED course: No sign of DKA patient has improved after IV hydration. Patient was heartburn has improved. Stable for discharge home. Will advised to abstain from alcohol use. . 01/09 04:26 Order name: Basic Metabolic Panel; Complete Time: 05:59 sp4 01/09 04:26 Order name: CBC with Diff; Complete Time: 05:59 sp4 01/09 04:26 Order name: LFT's; Complete Time: 05:59 sp4 01/09 04:26 Order name: Test, Serum; Complete Time: 05:59 sp4 01/09 04:36 Order name: Glucose, Ancillary Testing; Complete Time: 04:38 EDMS 01/09 07:25 Order name: Glucose, Ancillary Testing EDMS 01/09 04:26 Order name: IV Saline Lock; Complete Time: 04:33 sp4 01/09 04:26 Order name: Labs collected and sent; Complete Time: 04:33 sp4 01/09 04:26 Order name: O2 Per Protocol; Complete Time: 04:33 sp4 01/09 04:26 Order name: O2 Sat Monitoring; Complete Time: :33 sp4 Administered Medications: 04:38 Drug: NS 0.9% IV 1000 ml IV at 1 bolus Per protocol; 1000 mL bolus Route: IV; Rate: 1 jj7 bolus; Site: left antecubital; 04:38 Drug: metoCLOPramide IVP 10 mg IVP once; over 1 to 2 minutes Route: IVP; Site: left [facility] antecubital; 06:08 Follow up: Response: Marked relief of symptoms jj7 04:38 Drug: Famotidine IVP 20 mg IVP once; dilute with 10 mL 0.9% NaCl; give over 2 minutes jj7 Route: IVP; Site: left antecubital; 06:08 Follow up: Response: Marked relief of symptoms jj7 04:38 Drug: Alum-Mag Hydroxide-Simeth PO Suspension (200 mg-200 mg-20 mg/5 mL) 30 ml PO once jj7 Route: PO; 06:08 Follow up: Response: Other jj7 06:07 Drug: Insulin Regular Human IVP 5 units IVP once {Co-Signature: jb4 (Dylan Brock RN).} Route: IVP; Site: left antecubital; 07:34 Follow up: Response: No adverse reaction; Blood sugar is lowered kc6 Point of Care Testing: Blood Glucose: : Blood Glucose: 281 mg/dL; jj7 Ranges: Critical Glucose Levels:Adult <50 mg/dl or >400 mg/dl <40 mg/dl or >180 mg/dl Disposition Summary: 01/09/23 07:10 Discharge Ordered Notes: Location: Home sp4 Problem: new sp4 Symptoms: have improved sp4 Condition: Stable sp4 Diagnosis - Alcohol use, unspecified with intoxication sp4 - Alcoholic gastritis, acute acid reflux, acute heartburn, hyperglycemia sp4 Followup: sp4 - With: Private Physician - When: As needed - Reason: Discharge Instructions: - Discharge Summary Sheet sp4 - Gastritis, Adult, Qfab-fv-Bbba sp4 Forms: - Patient Portal Instructions sp4 Prescriptions: - ondansetron 8 mg Oral Tablet,disintegrating - take 1 tablet ORAL route every 8 hours PRN nausea; 30 tablet; Refills: 0, sp4 Product Selection Permitted Signatures: Dispatcher [employer] Jose Bruno RN RN Veronica Aldana RN RN jj7 Nicolas Mcbride MD MD sp4 Wilda Martinez RN kc6 Dylan Brock RN jb4
--- NOTE | 2023-01-09 07:11 | ER ---
Nurse's Notes [facility] [place] Name: Harriett Gillette Age: 32 yrs Sex: Female : 1990 Arrival Date: 01/09/2023 Time: 04:19 Bed 8 Private MD: Diagnosis: Alcohol use, unspecified with intoxication;Alcoholic gastritis, acute acid reflux, acute heartburn, hyperglycemia Presentation: 01/09 04:20 Chief complaint: EMS states: PT HAD A DRINK TONIGHT, HAVING SEVERE HEART BURN AND HIGH rv BLOOD SUGAR, BGL OF 336. WITH NAUSEA, WO VOMITING. TAKES METFORMIN FOR DM. Coronavirus screen: At this time, the client does not indicate any symptoms associated with coronavirus-19. Ebola Screen: No symptoms or risks identified at this time. Initial Sepsis Screen: Does the patient meet any 2 criteria? No. Patient's initial sepsis screen is negative. Does the patient have a suspected source of infection? No. Patient's initial sepsis screen is negative. Risk Assessment: Do you want to hurt yourself or someone else? Patient reports no desire to harm self or others. Onset of symptoms was January 09, 2023. 04:20 Method Of Arrival: EMS: [facility] rv 04:20 Acuity: TIFFANIE 3 rv Triage Assessment: : General: Appears uncomfortable, Behavior is calm, cooperative. Pain: Complains of pain rv in chest. Neuro: Level of Consciousness is awake, alert, obeys commands, Oriented to person, place, time, situation. Cardiovascular: Capillary refill < 3 seconds Patient's skin is warm and dry. Respiratory: Airway is patent Respiratory effort is even, unlabored. GI: Abdomen is flat, non-distended, Reports nausea. : No signs and/or symptoms were reported regarding the genitourinary system. Derm: Skin is intact. Historical: - Allergies: 04: Codeine; rv 04:22 Hydrocodone-Acetaminophen; rv - PMHx: 04: Diabetes - IDDM; GESTATIONAL DM; heart valve dysfunction; Pre-eclampsia; rv - PSHx: 04:22 Appendectomy; rv - Immunization history:: Adult Immunizations up to date. - Social history:: Smoking status: Patient reports the use of cigarette tobacco products, smokes one pack cigarettes per day. - Family history:: not pertinent. Screenin: [facility] ED Fall Risk Assessment (Adult) History of falling in the last 3 months, rv including since admission No falls in past 3 months (0 pts) Score/Fall Risk Level 0 - 2 = Low Risk Oriented to surroundings, Maintained a safe environment, Educated pt \T\ family on fall prevention, incl call for assistance when getting out of bed. Abuse screen: Denies threats or abuse. Denies injuries from another. Nutritional screening: No deficits noted. Tuberculosis screening: No symptoms or risk factors identified. Assessment: 04:47 Reassessment: PT VOMITED UP THE MALAAX. PT GOWNED. BED CLEANED. PT FEELING BETTER. jj7 07:00 Reassessment: Patient appears in no apparent distress at this time. No changes from kc6 previously documented assessment. Patient and/or family updated on plan of care and expected duration. Pain level reassessed. Patient is alert, oriented x 3, equal unlabored respirations, skin warm/dry/pink. Vital Signs: 04:20 BP 123 / 82; Pulse 104; Resp 18; Temp 98; Pulse Ox 100% ; Weight 57.61 kg; rv 05:30 BP 101 / 68; Pulse 87; Resp 16; Pulse Ox 99% ; jj7 07:47 BP 111 / 70; Pulse 97; Resp 16 S; Pulse Ox 99% on R/A; kc6 ED Course: 04:20 Patient arrived in ED. rv 04:22 Triage completed. rv 04:22 Arm band placed on right wrist. rv 04:23 Maintain EMS IV. Dressing intact. Good blood return noted. Site clean \T\ dry. Gauge \T\ rv site: 20 LAC. 04:23 No provider procedures requiring assistance completed. rv 04:26 Nicolas Mcbride MD is Attending Physician. sp4 04:26 Veronica Valderrama RN is Primary Nurse. jj7 04:33 Basic Metabolic Panel Sent. jj7 04:33 CBC with Diff Sent. jj7 04:33 LFT's Sent. jj7 04:33 Test, Serum Sent. jj7 07:00 Report received from AHSAN TINEO. kc6 07:00 Patient has correct armband on for positive identification. Placed in gown. Bed in low kc6 position. Call light in reach. Side rails up X2. Client placed on continuous cardiac and pulse oximetry monitoring. NIBP monitoring applied. 07:48 IV discontinued, intact, bleeding controlled, No redness/swelling at site. Pressure kc6 dressing applied. Administered Medications: 04:38 Drug: NS 0.9% IV 1000 ml IV at 1 bolus Per protocol; 1000 mL bolus Route: IV; Rate: 1 jj7 bolus; Site: left antecubital; 04:38 Drug: metoCLOPramide IVP 10 mg IVP once; over 1 to 2 minutes Route: IVP; Site: left jj7 antecubital; 06:08 Follow up: Response: Marked relief of symptoms jj7 04:38 Drug: Famotidine IVP 20 mg IVP once; dilute with 10 mL 0.9% NaCl; give over 2 minutes jj7 Route: IVP; Site: left antecubital; 06:08 Follow up: Response: Marked relief of symptoms jj7 04:38 Drug: Alum-Mag Hydroxide-Simeth PO Suspension (200 mg-200 mg-20 mg/5 mL) 30 ml PO once jj7 Route: PO; 06:08 Follow up: Response: Other jj7 06:07 Drug: Insulin Regular Human IVP 5 units IVP once {Co-Signature: darin (Dylan Brockj7 RN).} Route: IVP; Site: left antecubital; 07:34 Follow up: Response: No adverse reaction; Blood sugar is lowered kc6 Medication: 04:23 VIS not applicable for this client. Point of Care Testing: Blood Glucose: 04:26 Blood Glucose: 281 mg/dL; jj7 Ranges: Outcome: 07:10 Discharge ordered by MD. johnston 07:48 Discharged to home via wheelchair, with family, kc6 07:48 Condition: improved 07:48 Discharge instructions given to patient, Instructed on discharge instructions, follow up and referral plans. medication usage, Demonstrated understanding of instructions, follow-up care, medications, Prescriptions given X 1, 07:48 Patient left the ED. kc6 Signatures: Jose Sandra RN RN Wilda Ramírez RN RN kc6 Veronica Valderrama RN RN jj7 Nicolas Mcbride MD MD sp4 Bryson, James RN jb4
[2023-01-09 08:07] VITALS: O2SAT 99
[2023-01-09 08:08] VITALS: TEMP 98
[2023-01-09 08:10] VITALS: BP 111/70
== END 2023-01-09 07:48 | disposition home or self-care (01) ==
LOC: ER 04:19
DX: K29.20 Alcoholic gastritis without bleeding (principal); F10.129 Alcohol abuse with intoxication, unspecified; E11.65 Type 2 diabetes mellitus with hyperglycemia
CPT/HCPCS: 36415; 80048; 80076; 82947; 84703; 85025; 96374; 96375; 99284; J1815; J2765

== ENCOUNTER → 2023-04-09 | Emergency (ER) | payer SELFPAY ==
[~2023-04-09] MED LIST: INSULIN REGULAR (HUMAN) 100 UNIT/ML ONE; NA CHLORIDE 0.9% 1,000 ML ONE
--- OUTSIDE RECORDS SUMMARY | 2023-04-09 11:22 | XMS REPORT | Continuity of Care Document ---
Author Name Unknown Address [address] [facility] [address] [place] [address] [facility] thconnect Address [address] [facility]. 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 Name Role Phone ANEL METZ Primary Care Physician Unav ailable GHISLAINE SAMUEL Attending Clinician Unavailable [facility] Attending [facility]ician Lala vailable Ghislaine Samuel PA-C Attending Clinician [phone] Doctor Unassigned, [place] Attending Clinician [facility] [place] Trivedi Attending Clinician Unavailab TERRANCE Ng Attending Clinician Unavailable Terrance Alicea DDS Attending Clinician [phone] Joao Babcock DO Attending Clinician [phone] Anel Cisneros Attending Clinician + ANEL METZ Attending Clinician Unavail able TERRANCE ALICEA Admitting Clinician Unavailable Deanne Terrance PACHECO Admitting Clinician Payers Payer Name Policy Type Policy Number Effective Date Expirati on Date Source [facility] [id number] 2018 00:00:00 Problems Condition Name Condition Details Condition Category Status Onset Date Resolution Date Last Treatment Date Treating Clinician Comments Source Type 1 diabetes mellitus without complicati on Type 1 diabetes mellitus without complicati on Disease Active 2021-02 00:00: 00 [facility] Overweight (BMI 25.0-29.9) Overweight (BMI 25.0-29.9) Disease Active 2021-02 00:00: 00 [facility] Nexplanon in place Nexplanon in place Disease Active 2021-02 00:00: 00 [facility] Submandibu lar abscess Submandibu lar abscess Disease Active 2020-02 00:00: 00 [facility] Cervical Papanicola ou smear negative within last 12 months Cervical Papanicola ou smear negative within last 12 months Disease Active 05-03 00:00: 00 Overview: Formattin g of this note might be different from the original. NIL pap 10/2018, see scanned records [facility] Other general counseling and advice for contracept zelda management Other general counseling and advice for contracept zelda management Disease Active 04-28 00:00: 00 [facility] Abnormal glucose Abnormal glucose Disease Active 04-01 00:00: 00 [facility] Abnormal maternal glucose tolerance, antepartum Abnormal maternal glucose tolerance, antepartum Disease Active 03-31 00:00: 00 [facility] History of gestationa l diabetes History of gestationa l diabetes Disease Active 03-30 00:00: 00 [facility] History of pre-eclamp blanca in prior , currently History of pre-eclamp blanca in prior , currently Disease Active 03-30 00:00: 00 [facility] Multiparit y Multiparit y Disease Active 03-30 00:00: 00 [facility] Diet controlled gestationa l diabetes mellitus (GDM) in second trimester Diet controlled gestationa l diabetes mellitus (GDM) in second trimester Disease Active 05-27 00:00: 00 Overview: A2GDM- glybnurid e 2.5 mg Q am and 5 mg Q pm [facility] High risk , antepartum High risk , antepartum Disease Active 2014-02 00:00: 00 [facility] Allergies, Adverse Reactions, Alerts Allergy Name Allergy Type Status Severity Reaction(s) Onset Date Inactive Date Treating Clinician Comments Source No Known Allergie s DA Active U 06-09 00:00: 00 [facility] NO KNOWN ALLERGIE S Drug Class Active [facility] Social History Social Habit Start Date Stop Date Quantity Comments Source Exposure to SARS-CoV-2 (event) 2021-12-12 00:00:00 2021-12-22 12:38:00 Not sure [facility] Tobacco use and exposure 2021-12-22 00:00:00 2021-12-22 00:00:00 Smokeless tobacco non-user [facility] Alcohol intake 2021-12-22 00:00:00 2021-12-22 00:00:00 0 /d [facility] Tobacco Comment 2021-12-22 00:00:00 2021-12-22 00:00:00 smokes 3 cigarettes per day. pt states she stopped smoking since she found out about . [facility] History of tobacco use 2014-12-22 00:00:00 Cigarette Smoker [facility] Sex Assigned At 1990 00:00:00 1990 00:00:00 [facility] Smoking Status Start Date Stop Date Source Smokes tobacco daily 2021-12-22 00:00:00 [facility] Medications Ordered Medication Name Filled Medication Name Start Date Stop Date Current Medication? Ordering Clinician Indication Dosage Frequency Signature (SIG) Comments Components Source etonogestre L (NEXPLANON) implant 68 mg 2021-02 19:15: 00 12-22 18:35 :00 No [id number] 68mg [facility] etonogestre L (NEXPLANON) implant 68 mg 2021-02 19:15: 00 12-22 18:35 :00 No [id number] 68mg 68 mg, Subdermal, ONCE NOW, 1 dose, On 12/22/21 at 1415, Routine
Use approved by: [employer] [facility] etonogestre L (NEXPLANON) implant 68 mg 2021-02 19:15: 00 12-22 18:35 :00 No [id number] [facility] ([facility]EXPLANON[facility] 68 mg 2021-02 19:15: 00 12-22 18:35 :00 No [id number] 68mg 68 mg, Subdermal, ONCE NOW, 1 dose, On 12/22/21 at 1415, Routine
Use approved by: [employer] [facility] insulin degludec (TRESIBA U-100 INSULIN SC) 2021-02 12:59: 59 Yes inject under the skin. [facility] insulin degludec (TRESIBA U-100 INSULIN SC) 2021-02 12:59: 59 Yes inject under the skin. [facility] dapaglifloz in-metformi n (XIGDUO XR) [facility] 12:40: 33 Yes Xigduo XR 10 mg-1,000 mg tablet,ext ended release Take 1 tablet every day by oral route for 30 days. [facility] dapaglifloz in-metformi n (XIGDUO XR) 10-1,000 mg [facility] 2021-02 12:40: 33 Yes Xigduo XR 10 mg-1,000 mg tablet,ext ended release Take 1 tablet every day by oral route for 30 days. [facility] cephALEXin (KEFLEX) 500 mg capsule 2021-02 00:00: 00 12-30 05:59 :00 No [id number] 500mg Take 1 capsule by mouth 4 (four) times daily for 7 days. [facility] cephALEXin (KEFLEX) 500 mg capsule 2021-02 00:00: 00 12-30 05:59 :00 No [id number] 500mg Take 1 capsule by mouth 4 (four) times daily for 7 days. [facility] ARIPiprazol e 2 mg tablet 10-18 00:00: 00 Yes TAKE ONE (1) TABLET(S) BY MOUTH IN THE MORNING. [facility] ARIPiprazol e 2 mg tablet 10-18 00:00: 00 Yes TAKE ONE (1) TABLET(S) BY MOUTH IN THE MORNING. [facility] dapaglifloz in-metformi n (XIGDUO XR) 10-1,000 mg [facility] 2020-02 05:25: 03 Yes Xigduo XR 10 mg-1,000 mg tablet,ext ended release Take 1 tablet every day by oral route for 30 days. [facility] dapaglifloz in-metformi n (XIGDUO XR) 10-1,000 mg [facility] 2020-02 05:25: 03 Yes Xigduo XR 10 mg-1,000 mg tablet,ext ended release Take 1 tablet every day by oral route for 30 days. [facility] dapaglifloz in-metformi n (XIGDUO XR) 10-1,000 mg [facility] 2020-02 17:25: 56 Yes Xigduo XR 10 mg-1,000 mg tablet,ext ended release Take 1 tablet every day by oral route for 30 days. [facility] chlorhexidi ne (PERIDEX) 0.12 % mouthwash 15 mL 2020-02 14:00: 00 Yes 15mL 15 mL, Oral (Swish And Spit Out), BID, First dose on 12/24/20 at 0800, Until Discontinu ed, Routine [facility] Sliding Scale Insulin - Lispro (HumaLOG) + Fsbg Testing 2020-02 14:00: 00 Yes Subcutaneo us, TID MEALS+HS, First dose on 12/24/20 at 0800, Until Discontinu ed, Routine [facility] lactated ringers IV infusion 1,000 mL 2020-02 07:30: 00 Yes 1000mL at 50 mL/hr, 1,000 mL, IV Infusion, CONTINUOUS , Starting on Fri12/24/20 at 0130, Until Discontinu ed, Routine [facility] naloxone (NARCAN) injection 0.1 mg 2020-02 07:21: 11 Yes .1mg 0.1 mg, Slow IV Push, PRN - SEE INSTRUCTIO NS, Starting on Fri12/24/20 at 0121, Until Discontinu ed, Routine, Sedation/R espiratory Depression , See admin instructio ns. [facility] morpHINE injection 2 mg 2020-02 07:21: 11 12-26 07:20 :11 No 2mg 2 mg, Slow IV Push, Q3HPRN, Starting on Fri12/24/20 at 0121, Until Tu12/26/20 at 0120, Routine, Pain (scale 7-10) [facility] HYDROcodone -acetaminop hen (NORCO 5) 5-325 mg tablet 1 tablet 2020-02 07:21: 10 Yes 1{tbl} 1 tablet, Oral, Q6HPRN, Starting on Fri12/24/20 at 0121, Until Discontinu ed, Routine, Pain (scale 4-6) [facility] ibuprofen (ADVIL CHILDREN'S) 100 mg/5 mL oral suspension 600 mg 2020-02 07:21: 04 Yes 600mg 600 mg, Oral, Q6HPRN, Starting on Fri12/24/20 at 0121, Until Discontinu ed, Routine, Pain (scale 1-3) [facility] ondansetron (ZOFRAN (PF)) injection 4 mg 2020-02 07:20: 54 Yes 4mg 4 mg, Slow IV Push, Q4HPRN, Starting on Fri12/24/20 at 0120, Until Discontinu ed, Routine, Nausea and Vomiting (N/V) [facility] chlorhexidi ne 0.12 % mouthwash 2020-02 00:00: 00 Yes [id number] 15mL Swish and spit out 15 mL 2 (two) times daily. [facility] mg/5 mL oral suspension 2020-02 00:00: 00 Yes [id number] 600mg Take 30 mL by mouth every 6 (six) hours as needed for Pain (scale 1-3). [facility] chlorhexidi ne 0.12 % mouthwash 2020-02 00:00: 00 Yes [id number] 15mL Swish and spit out 15 mL 2 (two) times daily. [facility] 100 mg/5 mL oral suspension 2020-02 00:00: 00 Yes [id number] 600mg Take 30 mL by mouth every 6 (six) hours as needed for Pain (scale 1-3). [facility] chlorhexidi ne 0.12 % mouthwash 2020-02 00:00: 00 Yes [id number] 15mL Swish and spit out 15 mL 2 (two) times daily. [facility] ibuprofen 100 mg/5 mL oral suspension 2020-02 00:00: 00 Yes [id number] 600mg Take 30 mL by mouth every 6 (six) hours as needed for Pain (scale 1-3). [facility] chlorhexidi ne 0.12 % mouthwash 2020-02 00:00: 00 12-22 00:00 :00 No [id number] 15mL Swish and spit out 15 mL 2 (two) times daily. [facility] ibuprofen 100 mg/5 mL oral suspension 2020-02 00:00: 00 12-22 00:00 :00 No [id number] 600mg Take 30 mL by mouth every 6 (six) hours as needed for Pain (scale 1-3). [facility] chlorhexidi ne 0.12 % mouthwash 2020-02 00:00: 00 12-22 00:00 :00 No [id number] 15mL Swish and spit out 15 mL 2 (two) times daily. [facility] ibuprofen 100 mg/5 mL oral suspension 2020-02 00:00: 00 12-22 00:00 :00 No [id number] 600mg Take 30 mL by mouth every 6 (six) hours as needed for Pain (scale 1-3). [facility] HYDROcodone -acetaminop hen 5-325 mg tablet 2020-02 00:00: 00 01-01 05:59 :00 No [id number] 1{tbl} Take 1 tablet by mouth every 6 (six) hours as needed for Pain (scale 4-6) for up to 7 days. Indication s: acute pain [facility] amoxicillin -clavulanat e (AUGMENTIN) 875-125 mg per tablet 2020-02 00:00: 00 01-01 05:59 :00 No [id number] 1{tbl} Take 1 tablet by mouth 2 (two) times daily for 7 days. [facility] Blood-Gluco se Meter (FREESTYLE LITE METER) Kit 04-06 00:00: 00 Yes [id number] Use as directed [facility] blood sugar diagnostic (FREESTYLE LITE STRIPS) strip 04-06 00:00: 00 Yes [id number] Use as directed [facility] lancets 17 gauge Misc 18 00:00: 00 Yes [id number] Use as directed [facility] Blood-Gluco se Meter (FREESTYLE LITE METER) Kit 18 00:00: 00 Yes [id number] Use as directed [facility] (FREESTYLE LITE STRIPS) strip 18 00:00: 00 Yes [id number] Use as directed [facility] lancets 17 gauge Misc 18 00:00: 00 Yes [id number] Use as directed [facility] Blood-Gluco se Meter (FREESTYLE LITE METER) Kit 18 00:00: 00 Yes [id number] Use as directed [facility] lancets 17 gauge Misc 0 18 00:00: 00 Yes [id number] Use as directed [facility] Blood-Gluco se Meter (FREESTYLE LITE METER) Kit 18 00:00: 00 Yes [id number] Use as directed [facility] lancets 17 gauge Misc 0 18 00:00: 00 Yes [id number] Use as directed [facility] Blood-Gluco se Meter (FREESTYLE LITE METER) Kit 0 18 00:00: 00 Yes [id number] Use as directed [facility] blood sugar diagnostic (FREESTYLE LITE STRIPS) strip 0 18 00:00: 00 Yes [id number] Use as directed [facility] lancets 17 gauge Misc 0 18 00:00: 00 Yes [id number] Use as directed [facility] Blood-Gluco se Meter (FREESTYLE LITE METER) Kit 18 00:00: 00 Yes [id number] Use as directed [facility] blood sugar diagnostic (FREESTYLE LITE STRIPS) strip 0 18 00:00: 00 Yes [id number] Use as directed [facility] lancets 17 gauge Misc 18 00:00: 00 Yes [id number] Use as directed [facility] Blood-Gluco se Meter (FREESTYLE LITE METER) Kit 18 00:00: 00 Yes [id number] Use as directed [facility] blood sugar diagnostic (FREESTYLE LITE STRIPS) strip 0 18 00:00: 00 Yes [id number] Use as directed [facility] lancets 17 gauge Misc 0 18 00:00: 00 Yes [id number] Use as directed [facility] Blood-Gluco se Meter (FREESTYLE LITE METER) Kit 0 18 00:00: 00 Yes [id number] Use as directed [facility] blood sugar diagnostic (FREESTYLE LITE STRIPS) strip 0 18 00:00: 00 Yes [id number] Use as directed [facility] lancets 17 gauge Misc 0 18 00:00: 00 Yes [id number] Use as directed [facility] Blood-Gluco se Meter (FREESTYLE LITE METER) Kit 04-06 00:00: 00 Yes [id number] Use as directed [facility] blood sugar diagnostic (FREESTYLE LITE STRIPS) strip 04-06 00:00: 00 Yes [id number] Use as directed [facility] lancets 17 gauge Misc 04-06 00:00: 00 Yes [id number] Use as directed [facility] blood sugar diagnostic (FREESTYLE LITE STRIPS) strip 04-06 00:00: 00 12-22 00:00 :00 No [id number] Use as directed [facility] blood sugar diagnostic (FREESTYLE LITE STRIPS) strip 04-06 00:00: 00 12-22 00:00 :00 No [id number] Use as directed [facility] vit 33-iron-fol ic-dha (SELECT-OB + DHA) 29 mg iron-1 mg -250 mg combo pack 03-31 00:00: 00 Yes [id number] 1{packe t} Take 1 Packet by mouth daily. [facility] vit 33-iron-fol ic-dha (SELECT-OB + DHA) 29 mg iron-1 mg -250 mg combo pack 03-31 00:00: 00 Yes [id number] 1{packe t} Take 1 Packet by mouth daily. [facility] vit 33-iron-fol ic-dha (SELECT-OB + DHA) 29 mg iron-1 mg -250 mg combo pack 03-31 00:00: 00 Yes [id number] 1{packe t} Take 1 Packet by mouth daily. [facility] vit 33-iron-fol ic-dha (SELECT-OB + DHA) 29 mg iron-1 mg -250 mg combo pack 03-31 00:00: 00 Yes [id number] 1{packe t} Take 1 Packet by mouth daily. [facility] vit 33-iron-fol ic-dha (SELECT-OB + DHA) 29 mg iron-1 mg -250 mg combo pack 03-31 00:00: 00 Yes [id number] 1{packe t} Take 1 Packet by mouth daily. [facility] vit 33-iron-fol ic-dha (SELECT-OB + DHA) 29 mg iron-1 mg -250 mg combo pack 03-31 00:00: 00 Yes [id number] 1{packe t} Take 1 Packet by mouth daily. [facility] vit 33-iron-fol ic-dha (SELECT-OB + DHA) 29 mg iron-1 mg -250 mg combo pack 03-31 00:00: 00 Yes [id number] 1{packe t} Take 1 Packet by mouth daily. [facility] vit 33-iron-fol ic-dha (SELECT-OB + DHA) 29 mg iron-1 mg -250 mg combo pack 03-31 00:00: 00 12-22 00:00 :00 No [id number] 1{packe t} Take 1 Packet by mouth daily. [facility] vit 33-iron-fol ic-dha (SELECT-OB + DHA) 29 mg iron-1 mg -250 mg combo pack 03-31 00:00: 00 12-22 00:00 :00 No [id number] 1{packe t} Take 1 Packet by mouth daily. [facility] Vital Signs Vital Name Observation Time Observation Value Comments S trey Systolic blood pressure 2021-12-22 17:38:00 119 mm[Hg] [facility] Diastolic blood pressure 2021-12-22 17:38:00 77 mm[Hg] [facility] Heart rate 2021-12-22 17:38:00 76 /min [facility] Body temperature 2021-12-22 17:38:00 35.83 [facility] Respiratory rate 2021-12-22 17:38:00 18 /min [facility] Body height 2021-12-22 17:38:00 154.9 cm [facility] Body weight 2021-12-22 17:38:00 60.51 kg [facility] BMI 2021-12-22 17:38:00 25.21 kg/m2 [facility] Systolic blood pressure 2020-12-24 17:05:00 125 mm[Hg] [facility] Diastolic blood pressure 2020-12-24 17:05:00 87 mm[Hg] [facility] Heart rate 2020-12-24 17:05:00 91 /min [facility] Body temperature 2020-12-24 17:05:00 36.22 [facility] Respiratory rate 2020-12-24 17:05:00 18 /min [facility] Oxygen saturation in Arterial blood by Pulse oximetry 2020-12-24 17:05:00 98 /min [facility] Body weight 2020-12-24 06:32:00 68.04 kg [facility] BMI 2020-12-24 06:32:00 28.34 kg/m2 [facility] Systolic blood pressure 2020-04-28 16:31:00 106 mm[Hg] [facility] Diastolic blood pressure 2020-04-28 16:31:00 73 mm[Hg] [facility] Heart rate 2020-04-28 16:31:00 77 /min [facility] Body temperature 2020-04-28 16:31:00 36.72 [facility] Respiratory rate 2020-04-28 16:31:00 16 /min [facility] Body height 2020-04-28 16:31:00 154.9 cm [facility] Body weight 2020-04-28 16:31:00 59.081 kg [facility] BMI 2020-04-28 16:31:00 24.61 kg/m2 [facility] Systolic blood pressure 2020-04-28 16:31:00 106 mm[Hg] [facility] Diastolic blood pressure 2020-04-28 16:31:00 73 mm[Hg] [facility] Heart rate 2020-04-28 16:31:00 77 /min [facility] Body temperature 2020-04-28 16:31:00 36.72 [facility] Respiratory rate 2020-04-28 16:31:00 16 /min [facility] Body height 2020-04-28 16:31:00 154.9 cm [facility] Body weight 2020-04-28 16:31:00 59.081 kg [facility] BMI 2020-04-28 16:31:00 24.61 kg/m2 [facility] Procedures Procedure Date / Time Performed Performing Clinicia n Source POCT TEST 2021-12-22 17:49:00 Ghislaine Samuel [facility] GARDASIL 9 (HPV 9V) VACCINE 2021-12-22 17:48:52 Ghislaine Samuel [facility] ASSIGNMENT OF BENEFITS 2021-12-22 17:24:31 Docgertrude r Unassigned, [place] [facility] EXTERNAL PROVIDER RECORDS 2021-01-02 06:01:00 Doctor Unassigned, [place] [facility] POCT GLUCOSE (AUTOMATED) 2020-12-24 14:10:00 Terrance Alicea [facility] ASSIGNMENT OF BENEFITS 2020-04-28 17:41:20 Docgertrude r Unassigned, [place] [facility] FLU VACC ([id number]), 6+ MONTHS, IM, QUAD 2020-04-28 17:21:26 Anel Metz [facility] Encounters Start Date/Time End Date/Time Encounter Type Admission Type Attending Clinicians Care Facility Care Department Encounter ID Source 2023-02-24 13:34:59 2023-02-24 13:34:59 Outpatient [facility] [id number] Edouard Lester Nicolás 2022-12-13 10:21:56 2022-12-13 10:21:56 Outpatient [facility] [id number] Edouard Monzon 2022-11-30 12:58:22 2022-11-30 12:58:22 Outpatient RAHEL [facility] [id number] Edouard Monzon 2021-12-22 12:45:00 2021-12-22 13:22:01 Outpatient R GHISLAINE SAMUEL [facility] [id number] [facility] 2021-12-22 12:45:00 2021-12-22 13:22:01 Office Visit Provider, Wang Temp Ghislaine Samuel [facility] 1.2840.114 350.1.13.10 4.2.7.2.686 [id number] [facility] 2021-12-22 00:00:00 2021-12-22 00:00:00 Orders Only Doctor Unassigned, [place] [facility] 1.2840.114 350.1.13.10 4.2.7.2.686 [id number] [facility] 2021-01-02 00:00:00 2021-01-02 00:00:00 Orders Only Doctor Unassigned, [place] [facility] [id number] 350.1.13.10 4.2.7.2.686 [id number] [facility] 2020 14:00:00 2020 14:00:00 Outpatient Emily [facility] [id number] [facility] 2020-12-26 16:30:00 2020-12-26 16:30:00 Outpatient Emily ALICEA [facility] [id number] [facility] 2020-12-24 01:34:00 2020-12-24 17:25:00 Outpatient X DE[facility] HERMILO [id number] [facility] 2020-12-24 01:34:00 2020-12-24 17:25:00 [facility] 1.2840.114 350.1.13.10 4.2.7.2.686 [id number] [facility] 2020-05-09 00:00:00 2020-05-09 00:00:00 Patient Outreach Joao Babcock [facility] 1.2840.114 350.1.13.10 4.2.7.2.686 [id number] [facility] 2020-05-09 00:00:00 2020-05-09 00:00:00 Patient Outreach Joao Babcock [facility] 1.284.114 350.1.13.10 4.2.7.2.686 [id number] 2020-04-28 10:17:04 2020-04-28 11:41:16 Office Visit Anel Metz [facility] 1.2.114 350.1.13.10 4.2.7.2.686 [id number] 2020-04-28 10:17:04 2020-04-28 11:41:16 Office Visit Anel Metz [facility] 1.2840.114 350.1.13.10 4.2.7.2.686 [id number] [facility] 2020-04-28 10:15:00 2020-04-28 10:15:00 Outpatient R ANEL METZ [facility] [id number] [facility] 2020-04-28 00:00:00 2020-04-28 00:00:00 Orders Only Doctor Unassigned, [place] [facility] 1.2840.114 350.1.13.10 [id number] [id number] [facility] Results Test Description Test Time Test Comments Results Result Co mments Source COMPREHENSIVE METABOLIC [id number] 03:43:12* Test Item Value Reference Range Interpretation Comme nts GLUCOSE (test code = 2217) 507 MG/DL 70-99 RESULTS RECHECKE D AND VERIFIED BUN (test code = 2208) 13 MG/DL 6-20 CREATININE (test code = 2214) 0.80 MG/DL 0.60-1.30 eGFR (2020 CKD-EPI) (test code = 13288) 101 ML/MIN/1.73 >60 CALC BUN/CREAT (test code = 2235) 16 RATIO 6-28 SODIUM (test code = 2231) 133 MEQ/L 133-146 POTASSIUM (test code = 2228) 4.5 MEQ/L 3.5-5.4 CHLORIDE (test code = 2215) 97 MEQ/L 95-107 CARBON DIOXIDE (test code = 2206) 22 MEQ/L 19-31 CALCIUM (test code = 2209) 10.2 MG/DL 8.5-10.5 PROTEIN, TOTAL (test code = 222) 7.6 G/DL 6.1-8.3 ALBUMIN (test code = 220) 4.6 G/DL 3.5-5.2 CALC GLOBULIN (test code = 2240) 3.0 G/DL 1.9-3.7 CALC A/G RATIO (test code = 2233) 1.5 RATIO 1.0-2.6 BILIRUBIN, TOTAL (test code = 2206) 0.3 MG/DL <=1.2 ALKALINE PHOSPHATASE (test code = 2203) 96 U/L 40-114 AST (test code = 221) 11 U/L 9-40 ALT (test code = 221) 13 U/L 5-40 UNLESS OTHERWISE INDICATED, ALL TESTING PERFORMED AT [facility] [address] [place] [address] FOOD SERVICE HOTEL RUNNER: FRANCO UGARTE M.D. [place] NUMBER [id number] [facility] [place]. [id number] HEMOGLOBIN [id number] 02:28:23* Test Item Value Reference Range Interpretation Comme [facility] HEMOGLOBIN A1c (test code = 52625) 12.9 % 4.2-5.6 H [employer] ASS[employer]IATION GUIDELINES FOR HGB A1C: PREDIABETES/INCREASED RISK . . . . . . . 5.7-6.4% DIAGNOSIS OF DIABETES . . . . . . . . . >=6.5% WITH CONFIRMATION OR APPROPRIATE SYMPTOMS NOTE: ASSAY MAY BE AFFECTED BY HEMOGLOBINOPATHIES (SICKLE CELL ANEMIA, S-C DISEASE, OTHERS) OR ARTIFICIALLY LOWERED BY DECREASED RED CELL SURVIVAL (HEMOLYTIC ANEMIAS, BLOOD LOSS, ETC.). CONSIDER ALTERNATE TESTING OR LABORATORY CONSULTATION. POCT [id number] 17:50:00* Test Item Value Reference Range Interpretation Comme nts POCT PREG (test code = 1605) Negative On board controls acceptable with C Line (test code = 3574) Yes POCT PREG LOT # (test code = 3575) POCT PREG TEST DATE ( test code = 3576) [facility] [id number] 17:50:00* Test Item Value Reference Range Interpretation Comme nts POCT PREG (test code = 1605) Negative On board controls acceptable with C Line (test code = 3574) Yes POCT PREG LOT # (test code = 3575) POCT PREG TEST DATE ( test code = 3576) [facility] ([facility]), RT-PCR/[id number] 17:22:59* Test Item Value Reference Range Interpretation Comments SARS-CoV-2 INTERPRETATION (test code = 99557) NEGATIVE SEE NOTE SARS-CoV-2 R NA NOT DETECTEDNegative results do not preclude SARS-CoV-2 infection and should notbe used as the sole basis for patient management decisions. Negativeresults must be combined with clinical observations, patient history,and epidemiological information. Optimum specimen types and timingfor peak viral levels during infections caused by SARS-CoV-2 have notbeen determined. Collection of multiple specimens or types ofspecimens may be necessary to detect virus. Improper specimencollection and handling, sequence variability under primers/probes,or organism present below the limit of detection may lead to falsenegative results. Positive and negative predictive values oftesting are highly dependent on prevalence. False negative testresults are more likely when prevalence is high. SOURCE (test code = 30148) NASOPHARYNGEAL Note: Methodolog y is Juliana Leeann Real-Time RT-PCR. The expected result or reference range is NEGATIVE (Not Detected). For more information regarding COVID-19 testing to include clinicalinformation, methodology detail, intended use, FDA authorization andrecommended fact sheets for patients or healthcare providers, see [employer] Announcement: SARS-CoV-2 (COVID-19) by NAAT at URL below (note,fact sheets are provided by method given in report:[email or web address] Alternatively, see downloadable PDF fact sheet at:https://[email or web address] UNLESS OTHERWISE INDICATED, ALL TESTING PERFORMED [facility] [address] [place] [address] FOOD SERVICE HOTEL RUNNER: ERICK NEAL M.D. CLIA NUMBER [id number] [facility] [place]. [id number] POCT GLUCOSE (AUTOMATED)2020-12-24 14:12:21* Test Item Value Reference Range Interpretation Comme nts POCT GLU (test code = 6581647879) 212 mg/dL 70-110 H Lab Interpretation (test cod e = 82813-2) Abnormal [facility] 15:58:00* Test Item Value Reference Range Interpretation Comme nts GLUBED (test code = GLUBED) 148 mg/dL 65-110 H [id number] 10:51:00* Test Item Value Reference Range Interpretation Comme nts GLUBED (test code = GLUBED) 174 mg/dL 65-110 H [id number] 06:04:00* Test Item Value Reference Range Interpretation Comme nts GLUBED (test code = GLUBED) 83 mg/dL 65-110 N COMPREHENSIVE METABOLIC [id number] 04:40:00* Test Item Value Reference Range Interpretation Comme nts SODIUM (test code = NA) 135 mEq/L 135-145 N POTASSIUM (test code = K) 4.0 mEq/L 3.5-5.0 N CHLORIDE (test code = CL) 101 mEq/L 100-115 N CARBON DIOXIDE (test code = CO2) 21 mEq/L 22-31 L ANION GAP (test code = GAP) 16.70 10-20 N GLUCOSE (test code = GLU) 176 mg/dL 65-110 H BLOOD UREA NITROGEN (test co de = BUN) 10 mg/dL 7-18 N GLOMERULAR FILTRATION RATE ( test code = GFR) 100 ml/min >60 N CREATININE (test code = CREAT) 0.7 mg/dL [...] 10 units/L 12-78 L ALKALINE PHOSPHATASE TOTAL ( test code = ALKP) 78 units/L 46-116 N GLYCOSYLATED HEMOGLOBIN (HA1C)2018-06-10 04:40:00* Test Item Value Reference Range Interpretation Comme nts GLYCOSYLATED HEMOGLOBIN (HA1C) (test code = GLYHGB) 8.2 % 4.8-5.9 H Any conditi on that shortens erythocyte survival or decreasesmean erythrocyte age (e.g., [...] as fructosamineshould be considered for these patients. GLYCOSYLATED HEMOGLOBIN [id number] 04:40:00* Test Item Value Reference Range Interpretation Comme nts GLYCOSYLATED HEMOGLOBIN (HA1C) (test code = GLYHGB) 8.2 % 4.8-5.9 H Any condition th at shortens erythocyte survival or decreasesmean erythrocyte age (e.g., [...] for these patients. MEAN BLOOD GLUCOSE (test code = MBG) 189 MG/DL 70-110 H [id number] 00:14:00* Test Item Value Reference Range Interpretation Comme nts GLUBED (test code = GLUBED) 194 mg/dL 65-110 H COMPREHENSIVE METABOLIC [id number] 21:06:00* Test Item Value Reference Range Interpretation Comme nts SODIUM (test code = NA) 135 mEq/L 135-145 N POTASSIUM (test code = K) 4.0 mEq/L 3.5-5.0 N CHLORIDE (test code = CL) 101 mEq/L 100-115 N CARBON DIOXIDE (test code = CO2) 21 mEq/L 22-31 L ANION GAP (test code = GAP) 16.70 10-20 N GLUCOSE (test code = GLU) 176 mg/dL 65-110 H BLOOD UREA NITROGEN (test co de = BUN) 10 mg/dL 7-18 N GLOMERULAR FILTRATION RATE ( test code = GFR) 100 ml/min >60 N CREATININE (test code = CREAT) 0.7 mg/dL [...] 10 units/L 12-78 L ALKALINE PHOSPHATASE TOTAL ( test code = ALKP) 78 units/L 46-116 N GLYCOSYLATED HEMOGLOBIN (HA1C)2018-06-09 21:06:00* Test Item Value Reference Range Interpretation Comme nts GLYCOSYLATED HEMOGLOBIN (HA1 C) (test code = GLYHGB) CBC W/AUTO [id number] 20:53:00* Test Item Value Reference Range Interpretation Comme nts WHITE BLOOD CELL (test code = WBC) [...] pg 27-35 N MEAN CELL HGB CONCETRATION ( test code = MCHC) 32.7 gm/dL 32.2-34.1 N RED CELL DISTRIBUTION WIDTH (test code = RDW) 13.3 % 12.4-16.5 N PLATELET COUNT (test code = PLT) 360 K/mm3 133-385 N IMMATURE PLATELET FRACTION ( test code = IPF) 2.9 % 0.0-10.8 N MEAN PLATELET VOLUME (test c ode = MPV) 10.5 fl 9.1-12.7 N NEUTROPHIL % (test code = NT%) 63.4 [...] = BA#) 0.0 K/mm3 RBC MORPHOLOGY REQUIRED (kelsie t code = RBCM) NORMAL NORMAL PLATELET MORPHOLOGY REQUIRED (test code = PLTMR) NORMAL NORMAL URINALYSIS [id number] 20:08:00* Test Item Value Reference Range Interpretation Comme nts UA COLOR (test code = COLU) YELLOW YELLOW UA APPEARANCE (test code = APPU) CLEAR CLEAR UA GLUCOSE DIPSTICK (test co de = DGLUU) 3+ NEGATIVE UA BILIRUBIN DIPSTICK (test code = BILU) NEGATIVE NEGATIVE UA KETONE DIPSTICK (test cod e = KETU) TRACE NEGATIVE UA SPECIFIC GRAVITY (test co de = SGU) 1.020 1.001-1.035 N UA BLOOD DIPSTICK (test code = RANDI) NEG NEGATIVE UA PH DIPSTICK (test code = MANOLO) 6.0 5-9 UA PROTEIN DIPSTICK (test co de = PROU) NEGATIVE NEGATIVE UA UROBILINIOGEN DIPSTICK (t est code = URO) 0.2 EU/dL <=1.0 UA NITRITE DIPSTICK (test co de = NARESH) NEGATIVE NEGATIVE UA LEUKOCYTE ESTERASE DIPSTI CK (test code = LEUU) NEG NEGATIVE UA WBC (test code = WBCU) 2-5 #/hpf NONE SEEN A UA RBC (test code = RBCU) 0-2 #/hpf NONE SEEN UA EPITHELIAL CELLS (test co de = EPIU) FEW #/HPF RARE-FEW UA BACTERIA (test code = BACU) FEW #/hpf NONE SEEN A URINE SAMPLE: CLEAN [id number] 20:01:00* Test Item Value Reference Range Interpretation Comme nts GLUBED (test code = GLUBED) 196 mg/dL 65-110 H URINALYSIS [id number] 19:53:00* Test Item Value Reference Range Interpretation Comme nts UA COLOR (test code = COLU) YELLOW YELLOW UA APPEARANCE (test code = APPU) CLEAR CLEAR UA GLUCOSE DIPSTICK (test co de = DGLUU) 3+ NEGATIVE UA BILIRUBIN DIPSTICK (test code = BILU) NEGATIVE NEGATIVE UA KETONE DIPSTICK (test cod e = KETU) TRACE NEGATIVE UA SPECIFIC GRAVITY (test co de = SGU) 1.020 1.001-1.035 N UA BLOOD DIPSTICK (test code = RANDI) NEG NEGATIVE UA PH DIPSTICK (test code = MANOLO) 6.0 5-9 UA PROTEIN DIPSTICK (test co de = PROU) NEGATIVE NEGATIVE UA UROBILINIOGEN DIPSTICK (t est code = URO) 0.2 EU/dL <=1.0 UA NITRITE DIPSTICK (test co de = NARESH) NEGATIVE NEGATIVE UA LEUKOCYTE ESTERASE DIPSTI CK (test code = LEUU) NEG NEGATIVE UA WBC (test code = WBCU) #/hpf NONE SEEN UA EPITHELIAL CELLS (test co de = EPIU) #/HPF RARE-FEW URINE SAMPLE: CLEAN CATCH Notes Date/Time Note Provider Source 2018-06-17 17:42:00 [id number] N1QwqiOIzuiHfvRrgIG7gxW2gWLsN DM0kWsxg3KPDOICJHNNAAywERt6LWcCn2J2811-73-91U95:4 [id number] [address] PATIENT NAME: AILYN MCCOY ADMIT DATE: 06/09/18ACCOUNT NO: [id number] [facility] AGE: 27 SEX: F ADMITTING PHYSICIAN: Richard Bojorquez MD ATTENDING PHYSICIAN: Richard Bojorquez MD ADMISSION DATE: 06/09/2018 TRIAGE EVALUATION Admission to [facility]U for observation. For evaluation on 06/09/[address] Aponte. The patient was seen in the MAC unit as no doc patient, then admitted forobs with Dr. Bojorquez accepting the patient's care. HISTORY OF PRESENT ILLNESS: The patient is a 27-year-old G2, P0-1-0-1 withunsure last menstrual period and estimated date of confinement 09/16/2018. Shepresented at 25-6/7 weeks. She reports she was told to come to the hospital forelevated [...] of mckinney and one egg, hersugar was greater than 330. She used her Toujeo. Now on arrival in the MAC,her blood glucose level is 196. She is [...] Laparoscopic appendectomy in 2005 and wisdom teeth [id number]. ALLERGIES: NO KNOWN DRUG ALLERGIES. MEDICATIONS: vitamins and Toujeo. OBSTETRICAL HISTORY: In 2016, a 34-week vaginal delivery following inductionfor -induced hypertension. She was delivered of a male infant weighing6 pounds 7 ounces. In addition to the severe PIH, she also had diet-controlled PATIENT NAME: AILYN MCCOY gestational diabetes in that , otherwise no complications. GYNECOLOGIC HISTORY: Menarche at age [...] for 7 years. She is trying towean off cigarettes now. Occasional pre- and early first trimesteralcohol use before learning she was . The patient denies history ofillicit drugs. She lives with her son. She has no longer involved with thefather of her baby. She has no information on his health. She states shedrinks 4 to 6 beers per weekend and she states that she lost her significantother, when he suddenly she was very sad and she was drinking heavily at [employer] and which resulted in this . 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 She is on leave at this time. She has no information onthe health of her parents or grandparents as [...] to auscultation bilaterally with regular rate and rhythm.BREASTS: Deferred.ABDOMEN: Soft, nontender, gravid with a fundal height 4 cm above the umbilicus.PELVIC: Deferred.EXTREMITIES: Without edema. Bilateral patellar reflexes, 2+.NEUROLOGIC: Nonfocal. The patient is awake, alert, and oriented x3. LABORATORY DATA: At admission, white blood cell 8.6, hemoglobin 9.3, gjkeoecupk75.4, and platelets 360,000. Sodium 135, potassium 4.0, chloride 101,bicarbonate 21, BUN 10, creatinine 0.7, and glucose 176. ALT and AST slightlylow at 10 and 11 respectively, alkaline phosphatase 78. Hemoglobin A1c 8.2.Urine shows 3+ glucose, otherwise negative with 0 to 2 RBCs, 2 to 5 WBCs, andfew epithelial cells. DIAGNOSTIC DATA: NST with baseline heart tones in the 140s to 150s range.Accelerations consistent with gestational age. Occasional variable decels, nocontractions noted. ASSESSMENT AND PLAN: I spoke to Dr. Bojorquez and he agreed to accept the patientto his service. She is started on insulin sliding scale. Nutritional consultand business improvement manager will see the patient in the morning. She will have asocial service consult as well. PATIENT NAME: AILYN MCCOY The patient is a 27-year-old G2, P0-1-0-1 at 25-6/7th weeks with recentlydiagnosed diabetes in the second trimester, now poorly controlled. Admit to Dr Bojorquez as above. The patient is also a smoker and has a very poor social situation. The patient is also strongly encouraged to quit smoking altogether. sort line worker consult is requested. Dictated By: Kathy Corona MD WT: HP:F.JUAN RAMON/BIANCAI/NTSDD: 06/17/2018 17:42:01DT: 06/17/2018 19:58:20Conf#: [id number]/DID#: [id number] and Edited by Kathy Corona MD On 07/08/18 8:40:30 AM at 0843 PATIENT NAME: AILYN MCCOY and physical szrnpjxyjle1203-65-39X92:58:00F.[id number] VAvailable for patient tdxnJYITJESYVINBCP9537-34-06U03:43:56 [facility] 2018-06-10 14:02:00 [id number] dpCBfk5jbeiQvhiVv3yr8gqsWyGGn EcEkq3C9t2OsNky+Xxd86Vk26d8VVX9Rtd9700-06-19Q00:0 2:00 [facility] ([facility])OB Disch UndeliveredREPORT#:[id number] REPORT STATUS: SignedDATE:06/10/18 TIME: 1402 PATIENT: AILYN MCCOY UNIT #: [id number]#: [id number] [address] [birth year] AGE: 27 SEX: F ATTEND: Richard Bojorquez [facility] AUTHOR: Richard Bojorquez MD * ALL edits [...] 73.0-85.0 Physical ExamFHR evaluation: Baby A baseline: 140 bpm Baby A variability: moderate 6-25 bpm Baby A accelerations: 10 X 10 Baby A FHR category: category 1HEENT: normocephalic w/o injuryLungs: clear to auscultationNeuro: Exam: alert, oriented x3, normal speechAbdomen: gravid, soft, no abnormal tenderness Discharge Undelivered Discharge UndeliveredAssessment:Patient is a 27 year old at 25.6 WEEKS gestation admitted for uncontrolled GDMPlan:d/c home on insulinHospital course:she was admitted and started on weight based insulin , sugars went downConsultation(s) performed: Consultation performed: NUTRITION/DIABETES EDUCATION at 1404 RPT #:[id number] OF REPORT OBObstetric rkkm7551-66-05Y37:02:00F.FZRU88076858-1123QNUzhyn able for patient ecsaYOXJZBQNUKKRES0418-20-69F47:05:44 [facility] 2018-06-10 14:02:00 LDuywhaomyt85063790l SCOK9JIx+k7KYVqMNvoIlCQDJJ1Cv Q7lcmmSg8TNKgyK185qCgIAx8NPlybuu7U6083-28-91Z82:0 2:00 [facility] ([facility])OB Disch UndeliveredREPORT#:[id number] REPORT STATUS: SignedDATE:06/10/18 TIME: 1401 PATIENT: AILYN MCCOY UNIT #: [id number]#: [id number] [address] [birth year] AGE: 27 SEX: F ATTEND: Richard Bojorquez AUTHOR: Richard Bojorquez MD * ALL edits [...] 73.0-85.0 Physical ExamFHR evaluation: Baby A baseline: 140 bpm Baby A variability: moderate 6-25 bpm Baby A accelerations: 10 X 10 Baby A FHR category: category 1HEENT: normocephalic w/o injuryLungs: clear to auscultationNeuro: Exam: alert, oriented x3, normal speechAbdomen: gravid, [...] a week and weekly at 1412 RPT #:[id number] OF REPORT OBObstetric ddoh4186-54-44Z64:02:00F.GDUL82361510-6481ZXExkri able for patient uxpxVXGGPAXMHXNBBV8352-34-37T30:14:06 [facility] 2018-06-10 13:15:00 KGqnpdxqkqi59277377n GOhfTIaZdQgqsK0cW0/11DDdtJQBY 3aYyDM0AdJL34ClMV4HvWkP2q58HTujeWK2428-89-82Q07:1 5:00 [facility])OB Admission / H PREPORT#:[id number] REPORT STATUS: SignedDATE:06/10/18 TIME: 1315 PATIENT: AILYN MCCOY UNIT #: [id number]#: [id number] [address] [birth year] AGE: 27 SEX: F ATTEND: Richard Bojorquez MDADM AUTHOR: Richard Bojorquez MD * ALL edits or amendments must be made on the electronic/computer document * OB Admission H P HxChief complaint: I AM HPI:27 Y OLD at 25 6/7 weeks a patient of Dr Moreno, was adnitted due to high sugars,up to 300-500 at home, no complaints when i saw her today around 7amPast medical history: gestational DMPast surgical history: denies PSHSocial history: no alcohol useMedications:Current Hospital Medications:Central Nervous System Agents Sig/Eddi Start time Last Medication Dose Route Stop Time Status Admin Acetaminophen 650 MG Q4H PRN PRN 06/10 0300 AC (ACETAMINOPHEN 325 PO 08/09 0259 MG TAB) Zolpidem Tartrate 5 MG BEDTIME PRN PRN 06/10 0300 AC (AMBIEN 5 MG UDTAB) PO 07/10 0259 Electrolytic, Caloric, And Charles Sig/Eddi Start time Last Medication Dose Route Stop Time Status Admin Lactated Ringer's 1,000 ML ASDIR 06/09 2099 AC (LACTATED RINGERS) IV 08/08 2058 Gastrointestinal Drugs Sig/Eddi Start time Last Medication Dose Route Stop Time Status Admin Docusate Sodium 100 MG 0900,06/10 0900 AC (DOCUSATE SODIUM 100 PO 08/09 0859 MG CAP) Al Hydrox/Mg Hydrox/ 30 ML Q4H PRN PRN 06/10 0300 AC Simethicone PO 08/09 0259 (MYLANTA 30 ML SUSP) Magnesium Hydroxide 30 ML Q6H PRN PRN 06/10 030 AC (MILK OF MAGNESIA 30 PO 08/09 0259 ML UD) Ondansetron HCl 4 MG Q4H PRN PRN 06/10 0300 AC 06/10 (ZOFRAN 4 MG UD TAB) PO 08/09 025 0913 Polyethylene Glycol 17 GM DAILY PRN PRN 06/10 030 AC (POLYETHYLENE GLYCOL PO 08/09 0259 PKT) [...] Admin Diphtheria/Pertussis/ 0.5 ML ONCE ONE 06/09 2099 DC Tetanus Vacc IM 06/09 2100 (ADACEL VACCINE) Influenza Virus 60 MCG ONCE ONE 06/09 2100 DC 06/09 Vaccine IM 06/09 2100 2338 (FLUZONE QUAD 2018- 2018 SYRINGE) Vitamins Sig/Eddi Start time Last Medication Dose Route Stop Time Status Admin Multivi/Iron Carb/Fe 1 EA DAILY 06/10 0900 AC Sulf/FA/Prenat PO 08/09 0859 ( VITAMINS) Dose Instructions:(1)Insulin Human Regular (HumuLIN R 3 ml Vial): SEE SLIDING SCALE (Admin Criteria) AllergiesCoded Allergies:No Known Allergies (06/09/18) Review of SystemsConstitutional:Denies: chills. Skin:Denies: abrasion. Allergy/Immun:Denies: allergic reaction. Eyes:Denies: redness. ENT:Denies: ear drainage. Respiratory:Denies: PUENTE (dyspnea on exertion). Cardiovascular:Denies: chest pain. GI:Denies: abdominal pain. :Denies: dysuria. Musculoskeletal:Denies: arthritis. Objective GeneralVS:Last Documented: Result [...] Consultation performed: NUTRITION/DIABETES EDUCATION at 1324 RPT #:[id number] OF REPORT HPHistory and physical ldzjfotmxju6622-40-88L56:15:00F.[id number] AVAvailable for patient feujYRMXEGZXJJIVMG1964-49-44S39:25:42 [facility]
[2023-04-09 11:51] LABS: Absolute Lymphocytes (CBC) 2.3 K/uL (0.7-4.9); Hematocrit 34.9 % (36.0-45.0); Lymphocytes % 31.2 % (15.3-44.8); MCV 80.8 fL (80-100); MPV 8.1 fL (7.6-11.3); Platelets 357 thou/uL (152-406); RBC Red Blood Cell Count 4.32 M/uL (3.86-4.86)
[2023-04-09 11:53] LABS: Specific Gravity > 1.030 (1.005-1.030); Urine Bilirubin NEGATIVE (Negative); Urine Blood Negative (Negative); Urine Clarity Clear (Clear); Urine Color Colorless (Yellow); Urine Glucose 4+ (Over) (Negative); Urine Protein NEGATIVE (Negative); Urine Urobilinogen Normal (Normal)
[2023-04-09 12:08] LABS: ALT/SGPT 28 U/L (13-56); AST/SGOT 13 U/L (15-37); Albumin 3.2 g/dL (3.4-5.0); Alkaline Phosphatase 83 U/L (45-117); BUN Blood Urea Nitrogen 11 mg/dL (7-18); Bicarbonate 20 mEq/L (21-32); Bilirubin Total 0.2 mg/dL (0.2-1.0); Glomerular Filtration Rate 70 ml/min (=/>90); Glucose Level 356 mg/dL (74-106); Lipase 86 U/L (13-75); Potassium 4.2 mEq/L (3.5-5.1); Protein, Total 7.2 g/dL (6.4-8.2); Sodium Level 133 mEq/L (136-145)
[2023-04-09 12:10] LABS: Bilirubin Direct < 0.1 mg/dL (0-0.2); Bilirubin Indirect, Calculated ND mg/dL (0.2-0.8)
--- NOTE | 2023-04-09 13:53 | ER ---
Nurse's Notes [facility] Name: Harriett Gillette Age: 32 yrs Sex: Female : 1990 Arrival Date: 04/09/2023 Time: 11:18 Bed 12 Private MD: Diagnosis: Hyperglycemia, unspecified Presentation: 04/09 11:34 Chief complaint: Patient states: her BS has been running over 500 at home. Coronavirus iw screen: At this time, the client does not indicate any symptoms associated with coronavirus-19. Ebola Screen: Patient negative for fever greater than or equal to 101.5 degrees Fahrenheit, and additional compatible Ebola Virus Disease symptoms Patient denies exposure to infectious person. Patient denies travel to an Ebola-affected area in the 21 days before illness onset. No symptoms or risks identified at this time. Initial Sepsis Screen: Does the patient meet any 2 criteria? No. Patient's initial sepsis screen is negative. Does the patient have a suspected source of infection? No. Patient's initial sepsis screen is negative. Risk Assessment: Do you want to hurt yourself or someone else? Patient reports no desire to harm self or others. Onset of symptoms was April 09, 2023. 11:34 Method Of Arrival: Ambulatory iw 11:34 Acuity: TIFFANIE 3 iw Triage Assessment: 13:38 General: Appears comfortable, well groomed, well developed, well nourished. Pain: me1 Denies pain. MEDICAL SERVICES ASSISTANT: 13:40 LMP 03/30/2023, unknown me1 Historical: - Allergies: 11:34 Codeine; iw 11:34 Hydrocodone-Acetaminophen; iw - PMHx: 11:34 Diabetes - IDDM; GESTATIONAL DM; heart valve dysfunction; Pre-eclampsia; iw - PSHx: 11:34 Appendectomy; iw - Immunization history:: Adult Immunizations unknown. - Family history:: not pertinent. - Social history:: Smoking status: unknown. - Hospitalizations: : No recent hospitalization is reported. Screenin:36 [facility] ED Fall Risk Assessment (Adult) History of falling in the last 3 months, me1 including since admission No falls in past 3 months (0 pts) Confusion or Disorientation No (0 pts) Intoxicated or Sedated No (0 pts) Impaired Gait No (0 pts) Mobility Assist Device Used No (0 pt) Altered Elimination No (0 pt) Score/Fall Risk Level 0 - 2 = Low Risk Maintained a safe environment, Provided non-skid footwear, Hourly rounding (assess needs \T\ fall precautionary measures) done. 13:38 Abuse screen: Denies threats or abuse. Nutritional screening: No deficits noted. me1 Tuberculosis screening: No symptoms or risk factors identified. Assessment: 11:48 General: Appears in no apparent distress. Behavior is calm, cooperative. Neuro: Level iw of Consciousness is awake, alert, obeys commands, Oriented to person, place, time, situation, Moves all extremities. Full function. Cardiovascular: Patient's skin is warm and dry. Respiratory: Respiratory effort is even, unlabored, Respiratory pattern is regular, symmetrical. 12:55 Reassessment: Patient appears in no apparent distress at this time. Patient and/or iw family updated on plan of care and expected duration. Pain level reassessed. Patient is alert, oriented x 3, equal unlabored respirations, skin warm/dry/pink. Vital Signs: 11:34 BP 118 / 86; Pulse 86; Resp 16; Temp 98.1; Pulse Ox 100% on R/A; Weight 58.97 kg; iw Height 5 ft. 0 in. ; 13:54 BP 110 / 81; Pulse 81; Resp 16; Pulse Ox 100% on R/A; me1 11:34 Body Mass Index 25.39 (58.97 kg, 152.4 cm) iw ED Course: 11:21 Patient arrived in ED. ra3 11:22 Tripp Clark MD is Attending Physician. rn 11:34 Triage completed. iw 11:35 Arm band placed on. iw 11:44 Initial lab(s) drawn, by me, sent to lab. Inserted saline lock: 22 gauge in left iw antecubital area, using aseptic technique. Blood collected. 11:44 Test, Urine Sent. iw 11:44 Urinalysis w/ reflexes Sent. iw 12:03 Analia Espino, RN is Primary Nurse. iw 13:36 Patient has correct armband on for positive identification. Bed in low position. Call me1 light in reach. Side rails up X 1. Provided Education on: POC. Verbalized understanding. . 13:36 No provider procedures requiring assistance completed. me1 13:59 IV discontinued, intact, bleeding controlled, No redness/swelling at site. Pressure me1 dressing applied. Administered Medications: 12:08 Drug: NS 0.9% IV 1000 ml IV at 1000 ml once Route: IV; Rate: 1000 ml; Site: left iw antecubital; 13:37 Follow up: IV Status: Completed infusion; IV Intake: 100ml me1 12:53 Drug: Insulin Regular Human Sub-Q 5 units Sub-Q once {Co-Signature: cm10 (camilo Lord RN).} Route: Sub-Q; Site: left upper arm; 13:39 Follow up: Response: No adverse reaction me1 12:53 Drug: NS 0.9% IV 1000 ml IV at 1000 ml once Route: IV; Rate: 1000 ml; Site: left iw antecubital; 13:54 Follow up: IV Status: Completed infusion me1 Medication: 13:39 VIS not applicable for this client. me1 Point of Care Testing: Blood Glucose: 13:34 Blood Glucose: 209 mg/dL; me1 Ranges: Intake: 13:37 IV: 100ml; Total: 100ml. me1 Outcome: 13:52 Discharge ordered by . rn 13:59 Discharged to home ambulatory, with significant other, dc1 13:59 Condition: stable 13:59 Discharge instructions given to patient, significant other, Instructed on discharge instructions, follow up and referral plans. Demonstrated understanding of instructions, follow-up care, 14:00 Patient left the ED. me1 Signatures: Analia Espino RN RN iw Nieto, Roman, MD MD rn Eddleman, Michelle, RN RN dc1 Kalyn Suresh ra3 Karla Lord RN cm10
--- NOTE | 2023-04-09 13:53 | EDPHYS ---
Physician Documentation [facility] Name: Harriett Gillette Age: 32 yrs Sex: Female : 1990 Arrival Date: 04/09/2023 Time: 11:18 Bed 12 Private MD: ED Physician Tripp Clark HPI: 04/09 11:35 This 32 yrs old Female presents to ER via Ambulatory with complaints of High rn Blood Sugar. 11:35 The patient or guardian reports hyperglycemia, that was potentially precipitated by no rn particular event. Onset: The symptoms/episode began/occurred 4 day(s) ago. Current symptoms: In the emergency department the patient's symptoms are unchanged from the initial presentation. The patient has experienced similar episodes in the past. Patient reports a few days of hyperglycemia, glucose in the 500s. Patient takes glipizide and metformin. No medication changes recently. Does not take insulin. States sometimes has days this time but gets better after couple days. Reports mild increase in urination. Was treated for UTI and completed antibiotics last Friday. Overall feels much better. Main complaint is generalized malaise and fatigue. No syncope.. 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 - Family history:: not pertinent. - Social history:: Smoking status: unknown. - Hospitalizations: : No recent hospitalization is reported. ROS: 11:35 Constitutional: Negative for fever, chills, and weight loss, Cardiovascular: Negative rn for chest pain, palpitations, and edema, Respiratory: Negative for shortness of breath, cough, wheezing, and pleuritic chest pain, Abdomen/GI: Negative for abdominal pain, nausea, vomiting, diarrhea, and constipation, Back: Negative for injury and pain, : Negative for injury, bleeding, discharge, and swelling, MS/Extremity: Negative for injury and deformity, Skin: Negative for injury, rash, and discoloration, Neuro: Negative for headache, weakness, numbness, tingling, and seizure, Exam: 11:35 Constitutional: This is a well developed, well nourished patient who is awake, alert, rn and in no acute distress. Ambulatory to triage room without difficulty or assistance Head/Face: Normocephalic, atraumatic. ENT: Dry mucous membranes Cardiovascular: Regular rate and rhythm. No pulse deficits. Respiratory: No increased work of breathing, no retractions or nasal flaring. MS/ Extremity: Pulses equal, no cyanosis. Neurovascular intact. Full, normal range of motion. Equal circumference. Neuro: Awake and alert, GCS 15, oriented to person, place, time, and situation. Motor strength 5/5 in all extremities. Sensory grossly intact. Cerebellar exam normal. Normal gait. Vital Signs: 11:34 BP 118 / 86; Pulse 86; Resp 16; Temp 98.1; Pulse Ox 100% on R/A; Weight 58.97 kg; iw Height 5 ft. 0 in. ; 13:54 BP 110 / 81; Pulse 81; Resp 16; Pulse Ox 100% on R/A; me1 11:34 Body Mass Index 25.39 (58.97 kg, 152.4 cm) iw MDM: 11:22 Patient medically screened. rn 13:51 Differential diagnosis: DKA, hyperglycemia, Dehydration. Data reviewed: vital signs, rn nurses notes, lab test result(s), and as a result, I will discharge patient. Counseling: I had a detailed discussion with the patient and/or guardian regarding the historical points, exam findings, and any diagnostic results supporting the discharge/admit diagnosis, lab results, the need for outpatient follow up, to return to the emergency department if symptoms worsen or persist or if there are any questions or concerns that arise at home. Special discussion: I discussed with the patient/guardian in detail that at this point there is no indication for admission to the hospital. It is understood, however, that if the symptoms persist or worsen the patient needs to return immediately for re-evaluation. ED course: No elevated anion gap. Hyperglycemia with dehydration but no evidence of DKA. Glucose down to 200. Hydrated. Will discharge home with glucose diary and PCP follow-up, in fact patient already has PCP follow-up this week.. 04/09 11:29 Order name: CBC with Diff; Complete Time: 12:23 iw 04/09 11:29 Order name: Basic Metabolic Panel; Complete Time: 12:23 iw 04/09 11:29 Order name: Test, Urine; Complete Time: 12:23 04/09 11:29 Order name: Urinalysis w/ reflexes; Complete Time: 12:23 04/09 11:29 Order name: Lipase; Complete Time: 12:23 04/09 11:29 Order name: LFT's; Complete Time: 12:23 04/09 11:45 Order name: Glucose, Ancillary Testing; Complete Time: 12:23 [facility] 04/09 13:47 Order name: Glucose, Ancillary Testing; Complete Time: 13:48 [facility] 04/09 11:29 Order name: IV Start; Complete Time: 11:45 04/09 11:29 Order name: Glucose Level; Complete Time: 11:35 04/09 13:34 Order name: Glucose Level; Complete Time: 13:39 rn Administered Medications: 12:08 Drug: NS 0.9% IV 1000 ml IV at 1000 ml once Route: IV; Rate: 1000 ml; Site: left antecubital; 13:37 Follow up: IV Status: Completed infusion; IV Intake: 100ml me1 12:53 Drug: Insulin Regular Human Sub-Q 5 units Sub-Q once {Co-Signature: [email or web address] (camilo Lord RN).} Route: Sub-Q; Site: left upper arm; 13:39 Follow up: Response: No adverse reaction me1 12:53 Drug: NS 0.9% IV 1000 ml IV at 1000 ml once Route: IV; Rate: 1000 ml; Site: left antecubital; 13:54 Follow up: IV Status: Completed infusion me1 Point of Care Testing: Blood Glucose: 13:34 Blood Glucose: 209 mg/dL; me1 Ranges: Critical Glucose Levels:Adult <50 mg/dl or >400 mg/dl <40 mg/dl or >180 mg/dl Disposition Summary: 04/09/23 13:52 Discharge Ordered Notes: Location: Home rn Problem: new rn Symptoms: have improved rn Condition: Stable rn Diagnosis - Hyperglycemia, unspecified rn Followup: rn - With: Private Physician - When: As needed - Reason: Recheck today's complaints, Re-evaluation by your physician Discharge Instructions: - Discharge Summary Sheet rn - Hyperglycemia rn - Blood Glucose Monitoring, Adult rn Forms: - Medication Reconciliation Form rn - Thank You Letter rn - 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
[2023-04-09 14:22] VITALS: BP 110/81; TEMP 98.1; O2SAT 100
== END ==
LOC: ER 11:18
DX: E11.65 Type 2 diabetes mellitus with hyperglycemia (principal)
CPT/HCPCS: 36415; 80048; 80076; 81003; 81025; 82947; 83690; 85025; J1815; J7030

== ENCOUNTER 2023-07-29 08:06 | Emergency (ER) | payer OTHER, SELFPAY ==
--- OUTSIDE RECORDS SUMMARY | 2023-07-29 08:10 | XMS REPORT | Continuity of Care Document ---
Author Name Unknown Address [address] [facility] [address] [place] [address] [facility] thconnect Address [address] [facility]. 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 Role Phone Jad Bajwa Primary Care Physician [phone] GHISLAINE SAMUEL Attending Clinician Unavailable Provider, [facility] Attending Clinician Lala vailable Ghislaine Samuel PA-C Attending Clinician [phone] Doctor Unassigned, [place] Attending Clinician U DAKOTA Trivedi Attending Clinician Unavailab TERRANCE Ng Attending Clinician Unavailable Terrance Alicea DDS Attending Clinician [phone] Joao Babcock DO Attending Clinician Anel Cisneros Attending Clinician + ANEL METZ Attending Clinician Unavail able TERRANCE ALICEA Admitting Clinician Unavailable Deanne PACHECO, Terrance Admitting Clinician Payers Payer Name Policy Type Policy Number Effective Date Expirati on Date Source [facility] [id number] 2018 00:00:00 Problems Condition Name Condition Details Condition Category Status Onset Date Resolution Date Last Treatment Date Treating Clinician Comments Source Type 1 diabetes mellitus without complicati on Type 1 diabetes mellitus without complicati on Disease Active 2021-02 00:00: 00 [facility] Overweight (BMI 25.0-29.9) Overweight (BMI 25.0-29.9) Disease Active 2021-02 00:00: 00 [facility] Nexplanon in place Nexplanon in place Disease Active 2021-02 00:00: 00 [facility] Submandibu lar abscess Submandibu lar abscess Disease Active 2020-02 00:00: 00 [facility] Cervical Papanicola ou smear negative within last 12 months Cervical Papanicola ou smear negative within last 12 months Disease Active 05-03 00:00: 00 Overview: Formattin g of this note might be different from the original. NIL pap 10/2018, see scanned records [facility] Other general counseling and advice for contracept zelda management Other general counseling and advice for contracept zelda management Disease Active 04-28 00:00: 00 [facility] Abnormal glucose Abnormal glucose Disease Active 04-01 00:00: 00 [facility] Abnormal maternal glucose tolerance, antepartum Abnormal maternal glucose tolerance, antepartum Disease Active 03-31 00:00: 00 [facility] History of gestationa l diabetes History of gestationa l diabetes Disease Active 03-30 00:00: 00 [facility] History of pre-eclamp blanca in prior , currently History of pre-eclamp blanca in prior , currently Disease Active 03-30 00:00: 00 [facility] Multiparit y Multiparit y Disease Active 03-30 00:00: 00 [facility] Diet controlled gestationa l diabetes mellitus (GDM) in second trimester Diet controlled gestationa l diabetes mellitus (GDM) in second trimester Disease Active 05-27 00:00: 00 Overview: A2GDM- glybnurid e 2.5 mg Q am and 5 mg Q pm [facility] High risk , antepartum High risk , antepartum Disease Active 2014-02- 00:00: 00 [facility] Allergies, Adverse Reactions, Alerts Allergy Name Allergy Type Status Severity Reaction(s) Onset Date Inactive Date Treating Clinician Comments Source No Known Allergie s DA Active U 06-09 00:00: 00 [facility] NO KNOWN ALLERGIE S Drug Class Active [facility] Social History Social Habit Start Date Stop Date Quantity Comments Source Exposure to SARS-CoV-2 (event) 2021-12-12 00:00:00 2021-12-22 12:38:00 Not sure [facility] Tobacco use and exposure 2021-12-22 00:00:00 2021-12-22 00:00:00 Smokeless tobacco non-user [facility] Alcohol intake 2021-12-22 00:00:00 2021-12-22 00:00:00 0 /d [facility] Tobacco Comment 2021-12-22 00:00:00 2021-12-22 00:00:00 smokes 3 cigarettes per day. pt states she stopped smoking since she found out about . [facility] History of tobacco use 2014-12-22 00:00:00 Cigarette Smoker [facility] Sex Assigned At 1990 00:00:00 1990 00:00:00 [facility] Smoking Status Start Date Stop Date Source Smokes tobacco daily 2021-12-22 00:00:00 [facility] Medications Ordered Medication Name Filled Medication Name Start Date Stop Date Current Medication? Ordering Clinician Indication Dosage Frequency Signature (SIG) Comments Components Source insulin lispro (U-100) 100 unit/mL subcutaneou s solution 06-16 00:00: 00 Yes unit/mL Edouard Monzon TAKE 1 TABLET AT BEDTIME. 2- 00:00: 00 Yes 80 Edouard F Nicolás TAKE 1 TABLET DAILY. 00:00: 00 Yes 54 Edouard Monzon aripiprazol e 10 mg tablet 04-15 00:00: 00 Yes 1mg Edouard Monzon glipizide 10 mg tablet 04-15 00:00: 00 Yes 1mg Edouard Monzon metformin 850 mg tablet 04-15 00:00: 00 Yes 1mg Edouard Monzon INJECT 10 UNITS SC DAILY 04-15 00:00: 00 06-16 00:00 :00 No 100 Edouard Monzon INJECT 5 UNITS BID WITH MEALS 04-15 00:00: 00 06-16 00:00 :00 No 100 Edouard Monzon USE IF BLOOD GLUCOSE IS BELOW 60 04-15 00:00: 00 06-16 00:00 :00 No 1533 Edouard Monzon TAKE 1 TABLET AT BEDTIME. 04-15 00:00: 00 06-16 00:00 :00 No 20 Edouard Monzon TAKE 1 TABLET 3 TIMES DAILY WITH MEALS. 02-24 00:00: 00 Yes 850 Edouard Monzon TAKE 1 TABLET BY MOUTH TWICE A DAY 02-24 00:00: 00 Yes 10 Edouard Monzon TAKE 1 CAPSULE TWICE DAILY. 02-24 00:00: 00 06-16 00:00 :00 No 100 Edouard Monzon TAKE 1 TABLET BY MOUTH TWICE A DAY 2022-02 00:00: 00 06-16 00:00 :00 No 10 Edouard Monzon TAKE ONE NOW AND REPEAT IN 3 DAYS 2022-02 00:00: 00 06-16 00:00 :00 No 150 Edouard Monzon TAKE 1 TABLET 3 TIMES DAILY WITH MEALS. 2022-02 00:00: 00 06-16 00:00 :00 No 850 Edouard Monzon etonogestre L (NEXPLANON) implant 68 mg 2021-02 19:15: 00 12-22 18:35 :00 No [id number] 68mg Mariely valdez [facility] insulin degludec (TRESIBA U-100 INSULIN SC) 2021-02 12:59: 59 Yes inject under the skin. [facility] dapaglifloz in-metformi n (XIGDUO XR) 10-1,000 mg TBph 2021-02 12:40: 33 Yes Xigduo XR 10 mg-1,000 mg tablet,ext ended release Take 1 tablet every day by oral route for 30 days. [facility] cephALEXin (KEFLEX) 500 mg capsule 2021-02 00:00: 00 12-30 05:59 :00 No [id number] 500mg Take 1 capsule by mouth 4 (four) times daily for 7 days. [facility] TAKE ONE (1) TABLET(S) BY MOUTH IN THE MORNING. 10-18 00:00: 00 Yes Edouard Monzon Dose Unknown 06-07 00:00: 00 Yes Edouardjohnny Monzon Dose Unknown 06-07 00:00: 00 Yes Edouard Lester Monzon Dose Unknown 06-07 00:00: 00 Yes Edouard F Nicolás Dose Unknown 21 00:00: 00 Yes Edouard Monzon dapaglifloz in-metformi n (XIGDUO XR) 10-1,000 mg [facility] 2020-02 05:25: 03 Yes Xigduo XR 10 mg-1,000 mg tablet,ext ended release Take 1 tablet every day by oral route for 30 days. [facility] dapaglifloz in-metformi n (XIGDUO XR) 10-1,000 mg [facility] 2020-02 17:25: 56 Yes Xigduo XR 10 mg-1,000 mg tablet,ext ended release Take 1 tablet every day by oral route for 30 days. [facility] chlorhexidi ne (PERIDEX) 0.12 % mouthwash 15 mL 2020-02 14:00: 00 Yes 15mL 15 mL, Oral (Swish And Spit Out), BID, First dose on 12/24/20 at 0800, Until Discontinu ed, Routine [facility] Sliding Scale Insulin - Lispro (HumaLOG) + Fsbg Testing 2020-02 14:00: 00 Yes Subcutaneo us, TID MEALS+HS, First dose on Fri12/24/20 at 0800, Until Discontinu ed, Routine [facility] lactated ringers IV infusion 1,000 mL 2020-02 07:30: 00 Yes 1000mL at 50 mL/hr, 1,000 mL, IV Infusion, CONTINUOUS , Starting on Fri12/24/20 at 0130, Until Discontinu ed, Routine [facility] naloxone (NARCAN) injection 0.1 mg 2020-02 07:21: 11 Yes .1mg 0.1 mg, Slow IV Push, PRN - SEE INSTRUCTIO NS, Starting on Fri12/24/20 at 0121, Until Discontinu ed, Routine, Sedation/R espiratory Depression , See admin instructio ns. [facility] morpHINE injection 2 mg 2020-02 07:21: 11 12-26 07:20 :11 No 2mg 2 mg, Slow IV Push, Q3HPRN, Starting on Fri12/24/20 at 0121, Until Tu12/26/20 at 0120, Routine, Pain (scale 7-10) [facility] HYDROcodone -acetaminop hen (NORCO 5) 5-325 mg tablet 1 tablet 2020-02 07:21: 10 Yes 1{tbl} 1 tablet, Oral, Q6HPRN, Starting on Fri12/24/20 at 0121, Until Discontinu ed, Routine, Pain (scale 4-6) [facility] ibuprofen (ADVIL CHILDREN'S) 100 mg/5 mL oral suspension 600 mg 2020-02 07:21: 04 Yes 600mg 600 mg, Oral, Q6HPRN, Starting on Fri12/24/20 at 0121, Until Discontinu ed, Routine, Pain (scale 1-3) [facility] ondansetron (ZOFRAN (PF)) injection 4 mg 2020-02 07:20: 54 Yes 4mg 4 mg, Slow IV Push, Q4HPRN, Starting on Fri12/24/20 at 0120, Until Discontinu ed, Routine, Nausea and Vomiting (N/V) [facility] chlorhexidi ne 0.12 % mouthwash 2020-02 00:00: 00 12-22 00:00 :00 No [id number] 15mL Swish and spit out 15 mL 2 (two) times daily. [facility] ibuprofen 100 mg/5 mL oral suspension 2020-02 00:00: 00 12-22 00:00 :00 No [id number] 600mg Take 30 mL by mouth every 6 (six) hours as needed for Pain (scale 1-3). [facility] HYDROcodone -acetaminop hen 5-325 mg tablet 2020-02 00:00: 00 01-01 05:59 :00 No [id number] 1{tbl} Take 1 tablet by mouth every 6 (six) hours as needed for Pain (scale 4-6) for up to 7 days. Indication s: acute pain [facility] amoxicillin -clavulanat e (AUGMENTIN) 875-125 mg per tablet 2020-02 00:00: 00 01-01 05:59 :00 No [id number] 1{tbl} Take 1 tablet by mouth 2 (two) times daily for 7 days. [facility] Dose Unknown 2019-02 00:00: 00 Yes Edouard Monzon Dose Unknown 2019-02 00:00: 00 Yes Edouard Monzon glipizide 10 mg tablet 2019-02 018 00:00: 00 Yes 1mg Edouard F Nicolás Dose Unknown 6-09 00:00: 00 Yes Edouard F Nicolás Dose Unknown -22 00:00: 00 Yes Edouard F Nicolás Dose Unknown 4-20 00:00: 00 Yes Edouard Monzon Levemir FlexTouch U-100 Insulin 100 unit/mL (3 mL) subcutaneou s pen - 00:00: 00 Yes 12(3 mL) Edouard F Nicolás Dose Unknown 1- 00:00: 00 Yes Edouard F Nicolás Dose Unknown 02-25 00:00: 00 Yes Edouard Monzon glipizide 5 mg tablet 1-09 00:00: 00 Yes 1mg Edouard Monzon Blood-Gluco se Meter (FREESTYLE LITE METER) Kit 04-06 00:00: 00 Yes [id number] Use as directed [facility] lancets 17 gauge Misc 04-06 00:00: 00 Yes [id number] Use as directed [facility] blood sugar diagnostic (FREESTYLE LITE STRIPS) strip 04-06 00:00: 00 12-22 00:00 :00 No [id number] Use as directed [facility] vit 33-iron-fol ic-dha (SELECT-OB + DHA) 29 mg iron-1 mg -250 mg combo pack 03-31 00:00: 00 12-22 00:00 :00 No [id number] 1{packe t} Take 1 Packet by mouth daily. [facility] Vital Signs Vital Name Observation Time Observation Value Comments S ource Systolic blood pressure 2021-12-22 17:38:00 119 mm[Hg] [facility] Diastolic blood pressure 2021-12-22 17:38:00 77 mm[Hg] [facility] Heart rate 2021-12-22 17:38:00 76 /min [facility] Body temperature 2021-12-22 17:38:00 35.83 [place] [facility] Respiratory rate 2021-12-22 17:38:00 18 /min [facility] Body height 2021-12-22 17:38:00 154.9 cm [facility] Body weight 2021-12-22 17:38:00 60.51 kg [facility] BMI 2021-12-22 17:38:00 25.21 kg/m2 [facility] Systolic blood pressure 2020-12-24 17:05:00 125 mm[Hg] [facility] Diastolic blood pressure 2020-12-24 17:05:00 87 mm[Hg] [facility] Heart rate 2020-12-24 17:05:00 91 /min [facility] Body temperature 2020-12-24 17:05:00 36.22 [place] [facility] Respiratory rate 2020-12-24 17:05:00 18 /min [facility] Oxygen saturation in Arterial blood by Pulse oximetry 2020-12-24 17:05:00 98 /min [facility] Body weight 2020-12-24 06:32:00 68.04 kg [facility] BMI 2020-12-24 06:32:00 28.34 kg/m2 [facility] Systolic blood pressure 2020-04-28 16:31:00 106 mm[Hg] [facility] Diastolic blood pressure 2020-04-28 16:31:00 73 mm[Hg] [facility] Heart rate 2020-04-28 16:31:00 77 /min [facility] Body temperature 2020-04-28 16:31:00 36.72 [place] [facility] Respiratory rate 2020-04-28 16:31:00 16 /min [facility] Body height 2020-04-28 16:31:00 154.9 cm [facility] Body weight 2020-04-28 16:31:00 59.081 kg [facility] BMI 2020-04-28 16:31:00 24.61 kg/m2 [facility] Systolic blood pressure 2020-04-28 16:31:00 106 mm[Hg] [facility] Diastolic blood pressure 2020-04-28 16:31:00 73 mm[Hg] [facility] Heart rate 2020-04-28 16:31:00 77 /min [facility] Body temperature 2020-04-28 16:31:00 36.72 [place] [facility] Respiratory rate 2020-04-28 16:31:00 16 /min [facility] Body height 2020-04-28 16:31:00 154.9 cm [facility] Body weight 2020-04-28 16:31:00 59.081 kg [facility] BMI 2020-04-28 16:31:00 24.61 kg/m2 [facility] Height Measured 2023-04-15 15:46:00 60.00 inches Edouard F Nicolás Body Temperature 2023-04-15 15:46:00 98.30 degrees Edouard F Nicolás Heart Rate 2023-04-15 15:46:00 90.00 /min Barby en F Nicolás Respiratory Rate 2023-04-15 15:46:00 18.00 /min Edouard F Nicolás BP Systolic 2023-04-15 15:46:00 107 mm[Hg] Step hen F Nicolás BP Diastolic 2023-04-15 15:46:00 74 mm[Hg] Santhosh phen F Nicolás Weight Measured 2023-04-15 15:46:00 122.80 pounds Edouard F Nicolás BP Systolic 2023-02-24 13:44:00 97 mm[Hg] Step hen F Nicolás BP Diastolic 2023-02-24 13:44:00 70 mm[Hg] Santhosh phen F Nicolás Weight Measured 2023-02-24 13:44:00 121.00 pounds Edouard F Nicolás Height Measured 2023-02-24 13:44:00 60.00 inches Edouard F Nicolás Body Temperature 2023-02-24 13:44:00 97.30 degrees Edouard F Nicolás Heart Rate 2023-02-24 13:44:00 80.00 /min Barby en F Nicolás Respiratory Rate 2023-02-24 13:44:00 Edouard F Nicolás BP Systolic 2022-11-30 13:04:00 111 mm[Hg] Step hen F Nicolás BP Diastolic 2022-11-30 13:04:00 74 mm[Hg] Santhosh phen F Nicolás Weight Measured 2022-11-30 13:04:00 124.00 pounds Edouard F Nicolás Height Measured 2022-11-30 13:04:00 60.00 inches Edouard F Nicolás Body Temperature 2022-11-30 13:04:00 98.40 degrees Edouard F Nicolás Heart Rate 2022-11-30 13:04:00 92.00 /min Barby en F Nicolás Respiratory Rate 2022-11-30 13:04:00 Edouard F Nicolás BP Systolic 2019-07-27 11:41:00 106 mm[Hg] Step hen F Nicolás BP Diastolic 2019-07-27 11:41:00 72 mm[Hg] Santhosh phen F Nicolás Weight Measured 2019-07-27 11:41:00 141.60 pounds Edouard F Nicolás Height Measured 2019-07-27 11:41:00 60.00 inches Edouard F Nicolás Body Temperature 2019-07-27 11:41:00 98.60 degrees Edouard F Nicolás Heart Rate 2019-07-27 11:41:00 72.00 /min Barby en F Nicolás Respiratory Rate 2019-07-27 11:41:00 16.00 /min Edouard F Nicolás Body Temperature 2019-06-07 16:01:00 98.10 degrees Edouard F Nicolás Heart Rate 2019-06-07 16:01:00 101.00 /min Step hen F Nicolás Respiratory Rate 2019-06-07 16:01:00 16.00 /min Edouard F Nicolás BP Systolic 2019-06-07 16:01:00 114 mm[Hg] Step hen F Nicolás BP Diastolic 2019-06-07 16:01:00 72 mm[Hg] Santhosh phen F Nicolás Weight Measured 2019-06-07 16:01:00 136.00 pounds Edouard F Nicolás Height Measured 2019-06-07 16:01:00 60.00 inches Edouard F Nicolás BP Systolic 2019-02-25 17:49:00 106 mm[Hg] Step hen F Nicolás BP Diastolic 2019-02-25 17:49:00 71 mm[Hg] Santhosh phen F Nicolás Weight Measured 2019-02-25 17:49:00 134.20 pounds Edouard F Nicolás Height Measured 2019-02-25 17:49:00 60.00 inches Edouard F Nicolás Body Temperature 2019-02-25 17:49:00 98.60 degrees Edouard F Nicolás Heart Rate 2019-02-25 17:49:00 74.00 /min Barby en F Nicolás Respiratory Rate 2019-02-25 17:49:00 Edouard F Nicolás Procedures Procedure Date / Time Performed Performing Clinicia n Source POCT TEST 2021-12-22 17:49:00 Ghislaine Samuel [facility] GARDASIL 9 (HPV 9V) VACCINE 2021-12-22 17:48:52 Ghislaine Samuel [facility] ASSIGNMENT OF BENEFITS 2021-12-22 17:24:31 Docto r Unassigned, [place] [facility] EXTERNAL PROVIDER RECORDS 2021-01-02 06:01:00 Doctor Unassigned, [place] [facility] POCT GLUCOSE (AUTOMATED) 2020-12-24 14:10:00 Terrance Alicea [facility] ASSIGNMENT OF BENEFITS 2020-04-28 17:41:20 Shell khan Unassigned, [place] [facility] FLU VACC ([id number]), 6+ MONTHS, IM, SARWAT 2020-04-28 17:21:26 Anel Metz [facility] Encounters Start Date/Time End Date/Time Encounter Type Admission Type Attending [facility] Facility Care Department Encounter ID Source 2023-06-17 00:00:00 2023-06-17 00:00:00 Outpatient Visit SFA [id number] Edouard Monzon 2023-04-18 08:56:19 2023-04-18 08:56:19 Outpatient SFA [facility] [id number] Edouard Monzon 2023-04-15 15:40:19 2023-04-15 15:40:19 Outpatient SFA [facility] [id number] Edouard Monzon 2023-02-24 13:34:59 2023-02-24 13:34:59 Outpatient SFA [facility] [id number] Edouard Monzon 2022-12-13 10:21:56 2022-12-13 10:21:56 Outpatient SFA [facility] [id number] Edouard Monzon 2022-11-30 12:58:22 2022-11-30 12:58:22 Outpatient [facility] [id number] Edouard Monzon 2021-12-22 12:45:00 2021-12-22 13:22:01 Outpatient GHISLAINE GAMBOA [facility] [id number] [facility] 2021-12-22 12:45:00 2021-12-22 13:22:01 Office Visit Provider, MagalieRmchp Ghislaine Swenson [facility] DERRICK BOAT OPERATOR [facility] & [facility]ILD [facility] [id number] [facility] 2021-12-22 00:00:00 2021-12-22 00:00:00 Orders Only Doctor Unassigned, [place] [facility] [id number] [facility] 2021-01-02 00:00:00 2021-01-02 00:00:00 Orders Only Doctor Unassigned, [place] [facility] [id number] [id number] [facility] 2020 14:00:00 2020 14:00:00 Outpatient Emily ALICEA [facility] [id number] [facility] 2020-12-26 16:30:00 2020-12-26 16:30:00 [facility] [id number] [facility] 2020-12-24 01:34:00 2020-12-24 17:25:00 [facility] [id number] [facility] 2020-12-24 01:34:00 2020-12-24 17:25:00 [facility] [id number] [id number] [facility] 2020-05-09 00:00:00 2020-05-09 00:00:00 Patient Outreach Joao Babcock [facility] [id number] [facility] 2020-05-09 00:00:00 2020-05-09 00:00:00 Patient Outreach Joao Babcock [facility] [id number] 2020-04-28 10:17:04 2020-04-28 11:41:16 Office Visit Anel Metz [facility] DERRICK BOAT OPERATOR [facility] & CHILD [facility] [id number] [id number] [id number] [facility] 2020-04-28 10:17:04 2020-04-28 11:41:16 Office Visit Anel Metz [facility] DERRICK BOAT OPERATOR [facility] [id number] [id number] [id number] [id number] 2020-04-28 10:15:00 2020-04-28 10:15:00 Outpatient R ANEL METZ [facility] [id number] [facility] 2020-04-28 00:00:00 2020-04-28 00:00:00 Orders Only Doctor Unassigned, [place] [facility] [id number] [id number] [id number] [id number] [facility] Results Test Description Test Time Test Comments Results Result Co mments Source LIPID [id number] 05:04:06* Test Item Value Reference Range Interpretation Comme nts CHOLESTEROL (test code = 2210) 261 MG/DL <200 H TRIGLYCERIDES (test code = 2232) 657 MG/DL <150 H HDL CHOLESTEROL (test code = 2220) 47 MG/DL >39 CALC LDL CHOL (test code = 2237) (NOTE) MG/DL <100 UNABLE TO CALCUL ATE A VALID LDL CHOLESTEROL WHEN THE TRIGLYCERIDEVALUE IS GREATER THAN 400 MG/DL.UNABLE TO CALCULATE A VALID LDL CHOLESTEROL WHEN THE TRIGLYCERIDEVALUE IS GREATER THAN 400 MG/DL. NOTE: CALCULATED LDL IS BASED ON MAGGIE-HINOJOSA METHOD WHICHINCLUDES ADJUSTABLE TRIGLYCERIDE:VLDL CHOLESTEROL RATIO.THIS FACTOR VARIES BY MEASURED TRIGLYCERIDE AND NON-HDLCHOLESTEROL CONCENTRATIONS WITH INCREASED CALCULATED LDL SEENIN HIGHER TRIGLYCERIDE OR LOWER NON-HDL SPECIMENS. FOR MOREINFORMATION, SEE CLIENT ANNOUNCEMENT AT [email or web address] CalcLDL-C RISK RATIO LDL/HDL (test code = 2237) (NOTE) RATIO <3.22 UNABLE TO RADHA CULATE COMPREHENSIVE METABOLIC [id number] 05:04:06* Test Item Value Reference Range Interpretation Comme nts GLUCOSE (test code = 2216) 372 MG/DL 70-99 H BUN (test code = 2207) 14 MG/DL 6-20 CREATININE (test code = 2213) 0.69 MG/DL 0.60-1.30 eGFR (2020 CKD-EPI) (test code = 00971) 118 ML/MIN/1.73 >60 CALC BUN/CREAT (test code = 2234) 20 RATIO 6-28 SODIUM (test code = 2230) 131 MEQ/L 133-146 L POTASSIUM (test code = 2227) 4.2 MEQ/L 3.5-5.4 CHLORIDE (test code = 2214) 98 MEQ/L 95-107 CARBON DIOXIDE (test code = 6) 21 MEQ/L 19-31 CALCIUM (test code = 2208) 9.2 MG/DL 8.5-10.5 PROTEIN, TOTAL (test code = 2228) 7.0 G/DL 6.1-8.3 ALBUMIN (test code = 2200) 4.4 G/DL 3.5-5.2 CALC GLOBULIN (test code = 2240) 2.6 G/DL 1.9-3.7 CALC A/G RATIO (test code = 2233) 1.7 RATIO 1.0-2.6 BILIRUBIN, TOTAL (test code = 2206) <0.2 MG/DL <=1.2 ALKALINE PHOSPHATASE (test code = 2203) 83 U/L 40-114 AST (test code = 2218) 20 U/L 9-40 ALT (test code = 2219) 15 U/L 5-40 ALBUMIN/CREATININE RATIO, URINE, [id number] 04:18:31* Test Item Value Reference Range Interpretation Comme nts CREATININE, URINE, CONC. (test code = 2072) 30.4 MG/DL NOT ESTAB ALBUMIN, URINE, RANDOM (test code = 91945) 2.4 MG/DL NOT ESTAB CALC ALBUMIN/CREAT, RND (test code = 16818) 79 MG/G <30 H Note: Albumin/Cr eatinine ratio reference interval reflects ADA and NKF guidelines. UNLESS OTHERWISE INDICATED, ALL TESTING PERFORMED AT [facility] [address] [place] [address] MEDICAL COLLECTIONS: FRANCO UGARTE M.D. CLIA NUMBER [id number] [facility] [place]. [id number] HEMOGLOBIN [id number] 00:00:00* Test Item Value Reference Range Interpretation Comme nts HEMOGLOBIN A1c (test code = 11223) 12.8 % Edouard Batista AustinLIPID [id number] 00:00:00* Test Item Value Reference Range Interpretation Comme nts CHOLESTEROL (test code = 2210) 261 MG/DL TRIGLYCERIDES (test code = 2232) 657 MG/DL HDL CHOLESTEROL (test code = 2220) 47 MG/DL CALC LDL CHOL (test code = 2237) (NOTE) MG/DL RISK RATIO LDL/HDL (test cod e = 2238) (NOTE) RATIO Edouard MonzonCOMPREHENSIVE METABOLIC [id number] 00:00:00* Test Item Value Reference Range Interpretation Comme nts GLUCOSE (test code = 2217) 372 MG/DL BUN (test code = 2208) 14 MG/DL CREATININE (test code = 2214) 0.69 MG/DL eGFR (2020 CKD-EPI) (test code = 90166) 118 ML/MIN/1.73 CALC BUN/CREAT (test code = 2235) 20 RATIO SODIUM (test code = 2231) 131 MEQ/L POTASSIUM (test code = 2228) 4.2 MEQ/L CHLORIDE (test code = 2215) 98 MEQ/L CARBON DIOXIDE (test code = 2206) 21 MEQ/L CALCIUM (test code = 2209) 9.2 MG/DL PROTEIN, TOTAL (test code = 2229) 7.0 G/DL ALBUMIN (test code = 2201) 4.4 G/DL CALC GLOBULIN (test code = 2240) 2.6 G/DL CALC A/G RATIO (test code = 2234) 1.7 RATIO BILIRUBIN, TOTAL (test code = 2207) <0.2 MG/DL ALKALINE PHOSPHATASE (test code = 2204) 83 U/L AST (test code = 2218) 20 U/L ALT (test code = 221) 15 U/L Edouard Batista AustinALBUMIN/CREATININE RATIO, RANDOM [id number] 00:00:00* Test Item Value Reference Range Interpretation Comme nts CREATININE, URINE, CONC. (te st code = 2072) 30.4 MG/DL ALBUMIN, URINE, RANDOM (test code = 38485) 2.4 MG/DL CALC ALBUMIN/CREAT, RND (kelsie t code = 12419) 79 MG/G Edouard Batista AustinLIPID [id number] 03:43:12* Test Item Value Reference Range Interpretation Comme nts CHOLESTEROL (test code = 2210) 294 MG/DL <200 H TRIGLYCERIDES (test code = 2232) 280 MG/DL <150 H HDL CHOLESTEROL (test code = 2220) 62 MG/DL >39 CALC LDL CHOL (test code = 2237) 182 MG/DL <100 H NOTE: CALCULATED LDL IS BASED ON MAGGIE-HINOJOSA METHOD WHICHINCLUDES ADJUSTABLE TRIGLYCERIDE:VLDL CHOLESTEROL RATIO.THIS FACTOR VARIES BY MEASURED TRIGLYCERIDE AND NON-HDLCHOLESTEROL CONCENTRATIONS WITH INCREASED CALCULATED LDL SEENIN HIGHER TRIGLYCERIDE OR LOWER NON-HDL SPECIMENS. FOR MOREINFORMATION, SEE CLIENT ANNOUNCEMENT AT [email or web address] RISK RATIO LDL/HDL (test code = 2238) 2.94 RATIO <3.22 COMPREHENSIVE METABOLIC [id number] 03:43:12* Test Item Value Reference Range Interpretation Comme nts GLUCOSE (test code = 2217) 507 MG/DL 70-99 HH RESULTS RECHECKE D AND VERIFIED BUN (test code = 2207) 13 MG/DL 6-20 CREATININE (test code = 2214) 0.80 MG/DL 0.60-1.30 eGFR (2020 CKD-EPI) (test code = 25767) 101 ML/MIN/1.73 >60 CALC BUN/CREAT (test code = 223) 16 RATIO 6-28 SODIUM (test code = 2230) 133 MEQ/L 133-146 POTASSIUM (test code = 2227) 4.5 MEQ/L 3.5-5.4 CHLORIDE (test code = 2215) 97 MEQ/L 95-107 CARBON DIOXIDE (test code = 2205) 22 MEQ/L 19-31 CALCIUM (test code = 220) 10.2 MG/DL 8.5-10.5 PROTEIN, TOTAL (test code = 2229) 7.6 G/DL 6.1-8.3 ALBUMIN (test code = 2201) 4.6 G/DL 3.5-5.2 CALC GLOBULIN (test code = 2240) 3.0 G/DL 1.9-3.7 CALC A/G RATIO (test code = 2234) 1.5 RATIO 1.0-2.6 BILIRUBIN, TOTAL (test code = 2207) 0.3 MG/DL <=1.2 ALKALINE PHOSPHATASE (test code = 2204) 96 U/L 40-114 AST (test code = 2218) 11 U/L 9-40 ALT (test code = 2219) 13 U/L 5-40 UNLESS OTHERWISE INDICATED, ALL TESTING PERFORMED AT [facility] [address] [place] [address] MEDICAL COLLECTIONS: FRANCO UGARTE M.D. CLIA NUMBER [id number] [facility] [place]. [id number] LIPID [id number] 00:00:00* Test Item Value Reference Range Interpretation Comme nts CHOLESTEROL (test code = 2210) 294 MG/DL TRIGLYCERIDES (test code = 2232) 280 MG/DL HDL CHOLESTEROL (test code = 2220) 62 MG/DL CALC LDL CHOL (test code = 2237) 182 MG/DL RISK RATIO LDL/HDL (test cod e = 2238) 2.94 RATIO Edouard MonzonCOMPREHENSIVE METABOLIC [id number] 00:00:00* Test Item Value Reference Range Interpretation Comme nts GLUCOSE (test code = 2217) 507 MG/DL BUN (test code = 2208) 13 MG/DL CREATININE (test code = 2214) 0.80 MG/DL eGFR (2020 CKD-EPI) (test code = 71285) 101 ML/MIN/1.73 CALC BUN/CREAT (test code = 2235) 16 RATIO SODIUM (test code = 2231) 133 MEQ/L POTASSIUM (test code = 2228) 4.5 MEQ/L CHLORIDE (test code = 2215) 97 MEQ/L CARBON DIOXIDE (test code = 2206) 22 MEQ/L CALCIUM (test code = 2209) 10.2 MG/DL PROTEIN, TOTAL (test code = 2229) 7.6 G/DL ALBUMIN (test code = 2201) 4.6 G/DL CALC GLOBULIN (test code = 2240) 3.0 G/DL CALC A/G RATIO (test code = 2234) 1.5 RATIO BILIRUBIN, TOTAL (test code = 2207) 0.3 MG/DL ALKALINE PHOSPHATASE (test code = 2204) 96 U/L AST (test code = 2218) 11 U/L ALT (test code = 2219) 13 U/L Edouard MonzonHEMOGLOBIN [id number] 02:28:23* Test Item Value Reference Range Interpretation Comme [facility] HEMOGLOBIN A1c (test code = 97825) 12.9 % 4.2-5.6 H [employer] GUIDELINES FOR HGB A1C: [...] ETC.). CONSIDER ALTERNATE TESTING OR LABORATORY CONSULTATION. HEMOGLOBIN [id number] 00:00:00* Test Item Value Reference Range Interpretation Comme [facility] HEMOGLOBIN A1c (test code = 58939) 12.9 % Edouard MonzonPOCT [id number] 17:50:00* Test Item Value Reference Range Interpretation Comme [facility] POCT PREG (test code = 1605) Negative On board controls acceptable with C Line (test code = 3574) Yes POCT PREG LOT # (test code = 3575) POCT PREG TEST DATE ( test code = 3576) [facility] [id number] 17:50:00* Test Item Value Reference Range Interpretation Comme [facility] POCT PREG (test code = 1605) Negative On board controls acceptable with C Line (test code = 3574) Yes POCT PREG LOT # (test code = 3575) POCT PREG TEST DATE ( test code = 3576) [facility] ([facility]OVID-19), RT-PCR/[id number] 17:22:59* Test Item Value Reference Range Interpretation Comments SARS-CoV-2 INTERPRETATION (test code = 59437) NEGATIVE SEE NOTE SARS-CoV-2 R NA NOT [...] prevalence is high. SOURCE (test code = 48828) NASOPHARYNGEAL Note: Methodolog y is Juliana Leeann Real-Time RT-PCR. The expected result or reference range is NEGATIVE (Not Detected). For more information regarding COVID-19 testing to include clinicalinformation, methodology detail, intended use, FDA authorization andrecommended fact sheets for patients or healthcare providers, see [employer] Announcement: SARS-CoV-2 (COVID-19) by NAAT at URL below (note,fact sheets are provided by method given in report:[email or web address] Alternatively, see downloadable PDF fact sheet at:[email or web address] UNLESS OTHERWISE INDICATED, ALL TESTING PERFORMED [facility] [address] [place] [address] MEDICAL COLLECTIONS: ERICK NEAL M.D. CLIA NUMBER [id number] [place]. [id number] SARS-CoV-2 (COVID-19) by RT-PCR (HIGH RISK)2021-02-25 00:00:00* Test Item Value Reference Range Interpretation Comme nts SARS-CoV-2 INTERPRETATION (test code = 70374) NEGATIVE SOURCE (test code = 66886) NASOPHARYNGEAL Edouard Batista AustinPOCT GLUCOSE (AUTOMATED)2020-12-24 14:12:21* Test Item Value Reference Range Interpretation Comme nts POCT GLU (test code = 2226410257) 212 mg/dL 70-110 H Lab Interpretation (test cod e = 09547-4) Abnormal [facility] ([facility]OVID-19) by RT-PCR (HIGH RISK) 2020-03-05 00:00:00* Test Item Value Reference Range Interpretation Comme nts SARS-CoV-2 INTERPRETATION (t est code = 39852) NEGATIVE SOURCE (test code = 00058) NOT SPECIFIED Edouard MonzonHEMOGLOBIN [id number] 00:00:00* Test Item Value Reference Range Interpretation Comme nts HEMOGLOBIN A1c (test code = 40104) 10.2 % Edouard MonzonCBC W/AUTO [id number] 00:00:00* Test Item Value Reference Range Interpretation Comme nts WBC (test code = 1001) 9.2 K/UL RBC (test code = 1002) 4.88 M/UL HEMOGLOBIN (test code = 1003) 12.5 G/DL HEMATOCRIT (test code = 1004) 37.8 % MCV (test code = 1005) 77.5 fL MCH (test code = 1006) 25.6 PG MCHC (test code = 1007) 33.1 G/DL RDW (test code = 1038) 14.2 % NEUTROPHILS (test code = 1008) 65.4 % LYMPHOCYTES (test code = 1010) 25.3 % MONOCYTES (test code = 1011) 5.7 % EOSINOPHILS (test code = 1012) 2.7 % BASOPHILS (test code = 1013) 0.9 % PLATELET COUNT (test code = 1015) 389 K/UL Edouard MonzonCOMPREHENSIVE METABOLIC [id number] 00:00:00* Test Item Value Reference Range Interpretation Comme nts GLUCOSE (test code = 2217) 317 MG/DL BUN (test code = 2208) 12 MG/DL CREATININE (test code = 2214) 0.78 MG/DL eGFR AMER. (test cod e = 64359) 120 ML/MIN/1.73 eGFR NON- AMER. (test code = 90138) 103 ML/MIN/1.73 CALC BUN/CREAT (test code = 2235) 15 RATIO SODIUM (test code = 2231) 138 MEQ/L POTASSIUM (test code = 2228) 4.3 MEQ/L CHLORIDE (test code = 2215) 104 MEQ/L CARBON DIOXIDE (test code = 2206) 20 MEQ/L CALCIUM (test code = 2209) 9.1 MG/DL PROTEIN, TOTAL (test code = 2229) 6.9 G/DL ALBUMIN (test code = 2201) 4.6 G/DL CALC GLOBULIN (test code = 2240) 2.3 G/DL CALC A/G RATIO (test code = 2234) 2.0 RATIO BILIRUBIN, TOTAL (test code = 2207) 0.3 MG/DL ALKALINE PHOSPHATASE (test code = 2204) 85 U/L AST (test code = 2218) 10 U/L ALT (test code = 2219) 10 U/L Edouard MonzonHEMOGLOBIN [id number] 00:00:00* Test Item Value Reference Range Interpretation Comme nts HEMOGLOBIN A1c (test code = 84563) 10.7 % Edouard MonzonLIPID [id number] 00:00:00* Test Item Value Reference Range Interpretation Comme nts CHOLESTEROL (test code = 2210) 250 MG/DL TRIGLYCERIDES (test code = 2232) 336 MG/DL HDL CHOLESTEROL (test code = 2220) 43 MG/DL CALC LDL CHOL (test code = 2237) 155 MG/DL RISK RATIO LDL/HDL (test cod e = 2238) 3.60 RATIO Edouard [id number] 15:58:00* Test Item Value Reference Range Interpretation Comme nts GLUBED (test code = GLUBED) 148 mg/dL 65-110 H [id number] 10:51:00* Test Item Value Reference Range Interpretation Comme nts GLUBED (test code = GLUBED) 174 mg/dL 65-110 H [id number] 06:04:00* Test Item Value Reference Range Interpretation Comme nts GLUBED (test code = GLUBED) 83 mg/dL 65-110 N COMPREHENSIVE METABOLIC [id number] 04:40:00* Test Item Value Reference Range Interpretation [...] be considered for these patients. GLYCOSYLATED HEMOGLOBIN [id number] 04:40:00* Test Item Value Reference Range Interpretation [...] code = MBG) 189 MG/DL 70-110 H [id number] 00:14:00* Test Item Value Reference Range Interpretation Comme nts GLUBED (test code = GLUBED) 194 mg/dL 65-110 H COMPREHENSIVE METABOLIC [id number] 21:06:00* Test Item Value Reference Range Interpretation [...] C) (test code = GLYHGB) CBC W/AUTO [id number] 20:53:00* Test Item Value Reference Range Interpretation [...] (test code = PLTMR) NORMAL NORMAL URINALYSIS [id number] 20:08:00* Test Item Value Reference Range Interpretation [...] #/hpf NONE SEEN A URINE SAMPLE: CLEAN [id number] 20:01:00* Test Item Value Reference Range Interpretation Comme nts GLUBED (test code = GLUBED) 196 mg/dL 65-110 H URINALYSIS [id number] 19:53:00* Test Item Value Reference Range Interpretation [...] CLEAN CATCH Notes Date/Time Note Provider Source 2023-06-17 00:00:00 7QYYxw4WNyxjDQ1jTXLi cwfTQzDaD0pyF7ckA LKbcMB75e+x4fwzeiAYXsuIp5nY6654-12-63 T00:00:00+ + +| Plan Activity | Plan Date |+ + +| see above plan | 2019-02-25 |+ + +| Discussed with patient eating a low-fat, low-cholesterol, low-sugar, low-carbs | 2019-02-25 || diet. Eat more green leafy vegetables | |+ + +| Recommend healthy eating with foods from a variety of food groups. Encourage to | 2019-02-25 || eat more vegetables and appropriate portion sizes, and avoid sodas. Aerobic | || exercise daily. | || Appended: 2019-07-05 | || Limit fat intake to no more than 20% to 35% of your total calorie intake. For a | || person following a 1,800-calorie diet, this means eating no more than 40 to 70 | || grams of fat each day. | || Choose complex carbohydrates, such as whole grains, vegetables, and fruits. | || About 45% to 65% of your total calorie intake should come from carbohydrate. | || For someone following a 1,800-calorie diet, this means eating about 200 to 300 | || grams of carbohydrate each day. | || Choose low-fat protein sources, such as fish, poultry, and legumes (for | || example, boss beans, lentils, and split peas). About 10% to 35% of your total | || calorie intake should come from protein. For someone following a 1,800-calorie | || diet, this means eating about 45 to 160 grams of protein each day. | || Get enough fiber each day. Men should aim for 38 grams a day, and women should | || aim for 25 grams a day. | || Have no more than 1 alcohol drink a day for women and 2 alcohol drinks a day | || for men. | |+ + +| Discussed with pt daily exercise for at least 30mins in order to maintain a | 2019-02-25 || healthy lifestyle. | |+ + +| recommend keep blood sugars in good control to decrease neuropathy. | 2019-02-25 || continue to monitor at each visit. | || CBC, CMP, HGA1C, LIPID PANEL at next OV | |+ + +| Covid19 testing. | 2020-03-02 || RTO pending labs. | || self-quarantine until result | || symptoms treatment | || ER precaution for respiratory distress | || Follow up CDC guidelines for isolation/quarantine | || Supportive care, drink plenty of fluids, rest, and take tylenol for headache. | || RTO 1-3 days if positive for covid19 and as needed | |+ + +| Co-vid test - results pending | 2020-03-04 || Practice social distancing and good handwashing and cover cough , wear mask | || RTC as needed | || ER precautions | |+ + +| Continue eating a well balanced diet and have physical activity at least 30 min | 2022-11-30 || a day | |+ + +| REFILL Lispro 5 units with meals BID | 2022-11-30 || | || glucose gel sent for pt to use if BG < 60 | || | || Er precautions given | |+ + +| UA | 2023-02-24 || URINE CX | || macrobid 100 mg bid po | || side effects of meds discussed with pt. | |+ + +| LIPID-FASTING | 2023-02-24 || Start Atorvastatin 20 mg | || FU in 3 months | |+ + +| UA | 2023-02-25 || URINE CX | || macrobid 100 mg bid po | || side effects of meds discussed with pt. | |+ + +57484-2Enss of TreatmentLNCARE PLANTGREAT LAKES HEALTH SYSTEMFA|[facility]-[id number] for patient dweqHvzjqbwXqtkhmulsKTKIr00 Section NarrativeNARRATIVEFormatted C-CDA narrative textSLincoln County Medical Centerkita Robbins [facility]2024-04-30T00:00:00 [facility] 2018-[facility]-17 17:42:00 [id number] C0ExznZGacgGsdSrp DM0ptY7tIIvZEJ5xNgak3BDSNGCCHENGXgfRQ w9DFxRh7C3718-88-23O35:42:907029-[address] [address] PATIENT NAME: AILYN MCCOY ADMIT DATE: 06/09/18ACCOUNT NO: [id number] ROOM NO: F.3026 AGE: 27 SEX: F ADMITTING [...] her Toujeo. Now on arrival in the [facility],her blood glucose level is 196. She is [...] Laparoscopic appendectomy in 2005 and wisdom teeth [id number]. ALLERGIES: NO KNOWN DRUG ALLERGIES. MEDICATIONS: vitamins and Toujeo. OBSTETRICAL HISTORY: In 2016, a 34-week vaginal delivery following inductionfor -induced hypertension. She was delivered of a male weighing6 pounds 7 ounces. In addition to [...] sad and she was drinking heavily at [facility] [employer] stand and which resulted in this . 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 Sodium 135, potassium 4.0, [...] started on insulin sliding scale. Nutritional consultand music educator will see the patient in the [...] also strongly encouraged to quit smoking altogether. garnett room worker consult is requested. Dictated By: Kathy Corona MD WT: HP:JERRY/YESSY/NTSDD: 06/17/2018 17:42:01DT: 06/17/2018 19:58:20Conf#: [id number]/DID#: [id number] and Edited by Kathy Corona MD On 07/08/18 8:40:30 AM at 0843 PATIENT NAME: AILYN MCCOY and physical yuqsaabpcbx0838-47-59Q39:58:00F.HIM20 [id number] for patient ftwbAAURDANPHICWMO9292-45-11E21:43:56 [facility] 2018-06-10 14:02:00 [id number] itANid7ydboXifoTl 3ky1owwExJIyEtGcd6U7n4NaJif+Mvi83Vs40 s9IWU8Cpv7954-64-51V54:02:00 [facility] ([facility]OB Disch UndeliveredREPORT#:[id number] REPORT STATUS: SignedDATE:06/10/18 TIME: 140 PATIENT: AILYN MCCOY UNIT #: [id number]#: [id number] [address] [birth year] AGE: 27 SEX: F ATTEND: Richard Bojorquez MDA [...] Consultation performed: NUTRITION/DIABETES EDUCATION at 1404 RPT #:[id number] OF REPORT OBObstetric otex0899-51-51F30:02:00F.HDIY25519811 -0261AVAvailable for patient riybMHSMQIFAHSPFUD9489-82-21B32:05:44 [facility] 2018-06-10 14:02:00 YQgxeawubyd14234828e VJBD1RCf+j2PZDwUD snTyBNKYE1IhJ8xqovTw9DQGnoL415iOlOEt9 GIhkzxd5T2766-85-60L89:02:00 [facility] Dis[facility] UndeliveredREPORT#:[id number] REPORT STATUS: SignedDATE:06/10/18 TIME: 1402 PATIENT: AILYN MCCOY UNIT #: [id number]#: [id number] [address] [birth year] AGE: 27 SEX: F ATTEND: [...] a week and weekly at 1412 RPT #:[id number] OF REPORT OBObstetric nsvz4123-42-84M61:02:00F.JOQY81858248 -0261AVAvailable for patient waacJXIHXRJNPLWBUG7267-82-57U94:14:06 [facility] 2018-06-10 13:15:00 XBagmtrhifg55601258h ZSqvSLzRuBzvhD2gU 08/2761OCtaIRJP0jPsUS6HlSP54ZrJI3EoGuN4q 34TRbfwHH8094-14-77G85:15:00 [facility] ([facility])OB Admission / H PREPORT#:[id number] REPORT STATUS: SignedDATE:06/10/18 TIME: 1315 PATIENT: AILYN MCCOY UNIT #: [id number]#: [id number] [address] [birth year] AGE: 27 SEX: F ATTEND: [...] Influenza Virus 60 MCG ONCE ONE 06/09 2099 DC 06/09 Vaccine IM 06/09 2100 2338 [...] Consultation performed: NUTRITION/DIABETES EDUCATION at 1324 RPT #:[id number] OF REPORT HPHistory and physical spvcarxztin0610-97-03I77:15:00F.PD2 [id number] for patient msqkWYNYGEMBDWJZBE1922-00-99F26:25:42 [facility]"
[2023-07-29] MEDS ORDERED: NA CHLORIDE 0.9% 1,000 ML ONE (08:40)
[2023-07-29 08:49] LABS: Absolute Eosinophils 0.2 K/uL (0-0.5); Absolute Lymphocytes (CBC) 1.6 K/uL (0.7-4.9); Absolute Monocytes 0.3 K/uL (0.1-1.3); Absolute Neutrophil 4.1 K/uL (1.8-8.0); Basophils % 0.6 % (0-1.3); Eosinophils % 2.9 % (0-4.4); Hematocrit 37.1 % (36.0-45.0); Hemoglobin 12.2 g/dL (12.0-15.0); Lymphocytes % 26.2 % (15.3-44.8); MCH 25.8 pg (27.0-35.0); MCHC 32.8 g/dL (32.0-36.0); MCV 78.6 fL (80-100); MPV 9.3 fL (7.6-11.3); Monocytes % 4.6 % (3.3-12.3); Neutrophils % 65.7 % (41.7-73.7); Platelets 344 thou/uL (152-406); RBC Red Blood Cell Count 4.72 M/uL (3.86-4.86); Red Cell Distribution Width 15.1 % (12.1-15.2)
[2023-07-29 09:02] LABS: ALT/SGPT 19 U/L (13-56); Albumin 3.5 g/dL (3.4-5.0); Albumin/Globulin Ratio 0.9 (1.1-1.8); Alkaline Phosphatase 82 U/L (45-117); BUN Blood Urea Nitrogen 13 mg/dL (7-18); Bicarbonate 19 mEq/L (21-32); Bilirubin Total 0.3 mg/dL (0.2-1.0); Globulin 3.7 g/dL (2.3-3.5); Glomerular Filtration Rate 72 ml/min (=/>90); Lipase 79 U/L (13-75); Protein, Total 7.2 g/dL (6.4-8.2); Sodium Level 130 mEq/L (136-145)
[2023-07-29 09:03] LABS: AST/SGOT < 10 U/L (15-37)
[2023-07-29 09:05] LABS: Glucose Level 459 mg/dL (74-106)
[2023-07-29] MEDS ORDERED: INSULIN REGULAR (HUMAN) 100 UNIT/ML ONE (10:19)
[2023-07-29 10:35] LABS: Specific Gravity > 1.030 (1.005-1.030); Sqamous Epithelial <5 /HPF (None Seen); Urine Bacteria None Seen /HPF (<20); Urine Bilirubin NEGATIVE (Negative); Urine Blood Negative (Negative); Urine Clarity Clear (Clear); Urine Color Colorless (Yellow); Urine Culture Reflex Order NOT NEEDED; Urine Glucose 4+ (Over) (Negative); Urine Ketones TRACE (Negative); Urine Microscopic Reflex YN ORDER UMIC; Urine Mucus Slight /HPF (None Seen); Urine Nitrite NEGATIVE (Negative); Urine Protein NEGATIVE (Negative); Urine RBC <5 /HPF (None Seen); Urine Urobilinogen Normal (Normal); Urine WBC <5 /HPF (<5); Urine pH 5.5 (5.0-7.0)
--- NOTE | 2023-07-29 10:38 | ER ---
Nurse's Notes [facility] Name: Harriett Gillette Age: 32 yrs Sex: Female : 1990 Arrival Date: 07/29/2023 Time: 08:06 Bed 5 Private MD: Diagnosis: Hyperglycemia without acidosis Presentation: 07/28 08:22 Chief complaint: Patient states: Blood sugar was 369 this morning. Falcon dizzy at work ll1 and didn't want to fall out. Coronavirus screen: Client denies travel out of the [place] in the last 14 days. At this time, the client does not indicate any symptoms associated with coronavirus-19. Ebola Screen: Patient denies travel to an Ebola-affected area in the 21 days before illness onset. Initial Sepsis Screen: Does the patient meet any 2 criteria? No. Patient's initial sepsis screen is negative. Does the patient have a suspected source of infection? No. Patient's initial sepsis screen is negative. Risk Assessment: Do you want to hurt yourself or someone else? Patient reports no desire to harm self or others. Onset of symptoms was July 29, 2023. 08:22 Method Of Arrival: Ambulatory ll1 08:22 Acuity: TIFFANIE 3 ll1 Triage Assessment: 08:22 General: Appears uncomfortable, Behavior is calm, cooperative, appropriate for age. ll1 Pain: Denies pain. Neuro: Reports dizziness. Historical: - Allergies: 08:22 Codeine; ll1 08:22 Hydrocodone-Acetaminophen; ll1 - PMHx: 08:22 Diabetes - IDDM; GESTATIONAL DM; heart valve dysfunction; Pre-eclampsia; ll1 - PSHx: 08:22 Appendectomy; ll1 - Immunization history:: Adult Immunizations up to date. - Infectious Disease History:: Denies. - Social history:: Smoking status: Patient reports the use of cigarette tobacco products, smokes one-half pack cigarettes per day. Screenin:28 [facility] ED Fall Risk Assessment (Adult) History of falling in the last 3 months, db including since admission No falls in past 3 months (0 pts) Confusion or Disorientation No (0 pts) Intoxicated or Sedated No (0 pts) Impaired Gait No (0 pts) Mobility Assist Device Used No (0 pt) Altered Elimination No (0 pt) Score/Fall Risk Level 0 - 2 = Low Risk Oriented to surroundings, Maintained a safe environment. Abuse screen: Denies threats or abuse. Denies injuries from another. 10:21 Nutritional screening: No deficits noted. Tuberculosis screening: No symptoms or risk kc6 factors identified. Assessment: 08:27 Reassessment: Patient appears in no apparent distress at this time. Patient and/or db family updated on plan of care and expected duration. Pain level reassessed. Patient is alert, oriented x 3, equal unlabored respirations, skin warm/dry/pink. HIGH BLOOD SUGAR THIS AM. TOOK LANTUS AND NOT HUMALOG BECAUSE STATES DID NOT EAT. General: Appears in no apparent distress. comfortable, Behavior is calm, cooperative. Pain: Denies pain. Neuro: Level of Consciousness is awake, alert, obeys commands, Oriented to person, place, time, situation. Cardiovascular: No deficits noted. Respiratory: Airway is patent Respiratory effort is even, unlabored, Respiratory pattern is regular, symmetrical. GI: No deficits noted. No signs and/or symptoms were reported involving the gastrointestinal system. : No deficits noted. No signs and/or symptoms were reported regarding the genitourinary system. EENT: No deficits noted. No signs and/or symptoms were reported regarding the EENT system. Derm: No deficits noted. No signs and/or symptoms reported regarding the dermatologic system. Musculoskeletal: No deficits noted. No signs and/or symptoms reported regarding the musculoskeletal system. 11:20 Reassessment: Patient appears in no apparent distress at this time. Patient and/or db family updated on plan of care and expected duration. Pain level reassessed. Patient is alert, oriented x 3, equal unlabored respirations, skin warm/dry/pink. Vital Signs: 08:22 BP 114 / 80; Pulse 89; Resp 17; Temp 97.6; Pulse Ox 100% ; Weight 61.23 kg; Height 5 ll1 ft. 1 in. ; Pain 0/10; 10:20 BP 103 / 77; Pulse 64; Resp 15 S; Pulse Ox 100% on R/A; kc6 08:22 Body Mass Index 25.51 (61.23 kg, 154.94 cm) ll1 08:22 Pain Scale: Adult ll1 ED Course: 08:08 Patient arrived in ED. rg4 08:20 Arm band placed on Patient placed in an exam room, on a stretcher. ll1 08:22 Naranjo, Katy, RN is Primary Nurse. db 08:22 Pramod Wilde MD is Attending Physician. sp3 08:24 Triage completed. ll1 10:19 Test, Urine Sent. kc6 10:19 Urinalysis w/ reflexes Sent. kc6 10:20 Patient has correct armband on for positive identification. Bed in low position. Call kc6 light in reach. Side rails up X 1. Pulse ox on. NIBP on. Door closed. Noise minimized. Lights dimmed. Warm blanket given. Pillow given. 11:20 Provided Education on: DISCHARGE. db 11:20 No provider procedures requiring assistance completed. IV discontinued, intact, db bleeding controlled, No redness/swelling at site. Administered Medications: 08:35 Drug: NS 0.9% IV 1000 ml IV at 1 bolus Per protocol; 1000 mL bolus Route: IV; Rate: 1 db bolus; Site: right antecubital; 10:19 Follow up: Response: No adverse reaction; IV Status: Completed infusion; IV Intake: kc6 1000ml 10:24 Drug: Insulin Regular Human IVP 10 units IVP once {Co-Signature: [email or web address] (Wilda Martinez RN).} {Note: GLUCOSE 317.} Route: IVP; Site: right antecubital; 10:55 Follow up: Response: No adverse reaction db Medication: 11:20 VIS not applicable for this client. db Point of Care Testing: Blood Glucose: 08:26 Blood Glucose: 475 mg/dL; db Ranges: Intake: 10:19 IV: 1000ml; Total: 1000ml. kc6 Outcome: 10:38 Discharge ordered by . sp3 11:20 Patient left the ED. db 11:20 Discharged to home ambulatory, with family, db 11:20 Condition: stable 11:20 Discharge instructions given to patient, Instructed on discharge instructions, follow up and referral plans. Signatures: Aaliyah William rg4 Marla Maravilla RN RN ll1 Pramod Wilde MD MD sp3 Wilda Martinez RN RN kc6 Katy Naranjo, RN RN db Wilda Martinez RN kc6 Corrections: (The following items were deleted from the chart) 09:04 08:22 BP 114 / 80; Resp 17bpm; Pulse Ox 100%; Temp 97.6F; 61.23 kg; Height 5 ft. 1 in.; ll1 BMI: 25.5; Pain 0/10, Adult; ll1
--- NOTE | 2023-07-29 10:38 | EDPHYS ---
Physician Documentation [facility] Name: Harriett Gillette Age: 32 yrs Sex: Female : 1990 Arrival Date: 07/29/2023 Time: 08:06 Bed 5 Private MD: ED Physician Pramod Wilde HPI: 07/28 08:47 This 32 yrs old Female presents to ER via Ambulatory with complaints of High sp3 Blood Sugar. 08:47 32-year-old female with history of type 1 diabetes currently on Lantus and Premeal sp3 Humalog presents to the ED with chief complaint hyperglycemia on her fasting blood glucose reading this morning. Glucose was 300+ prior to her eating. She has not had breakfast or her a.m. Humalog did take her Lantus yesterday along with her Premeal Humalog since yesterday. She is having no symptoms including polydipsia, polyuria, abdominal pain, nausea, vomiting, diarrhea, syncope, near syncope, chest pain, shortness of breath, fever, URI symptoms, dysuria, urinary frequency, other infectious symptoms, fever, or any other signs or symptoms on ROS at this time. Patient does report increased stress in her life including eviction from her apartment and she is now staying with her family.. Historical: - Allergies: 08:22 Codeine; ll1 08:22 Hydrocodone-Acetaminophen; ll1 - PMHx: 08:22 Diabetes - IDDM; GESTATIONAL DM; heart valve dysfunction; Pre-eclampsia; ll1 - PSHx: 08:22 Appendectomy; ll1 - Immunization history:: Adult Immunizations up to date. - Infectious Disease History:: Denies. - Social history:: Smoking status: Patient reports the use of cigarette tobacco products, smokes one-half pack cigarettes per day. ROS: 08:50 Constitutional: Negative for fever, chills, and weight loss, Eyes: Negative for injury, sp3 pain, redness, and discharge, ENT: Negative for injury, pain, and discharge, Neck: Negative for injury, pain, and swelling, Cardiovascular: Negative for chest pain, palpitations, and edema, Respiratory: Negative for shortness of breath, cough, wheezing, and pleuritic chest pain, Abdomen/GI: Negative for abdominal pain, nausea, vomiting, diarrhea, and constipation, Back: Negative for injury and pain, MS/Extremity: Negative for injury and deformity, Skin: Negative for injury, rash, and discoloration, Neuro: Negative for headache, weakness, numbness, tingling, and seizure, Psych: Negative for depression, anxiety, suicide ideation, homicidal ideation, and hallucinations, Allergy/Immunology: Negative for hives, rash, and allergies, Hematologic/Lymphatic: Negative for swollen nodes, abnormal bleeding, and unusual bruising, Exam: 08:50 Constitutional: This is a well developed, well nourished patient who is awake, alert, sp3 and in no acute distress. Head/Face: Normocephalic, atraumatic. Eyes: Pupils equal round and reactive to light, extra-ocular motions intact. Lids and lashes normal. Conjunctiva and sclera are non-icteric and not injected. Cornea within normal limits. Periorbital areas with no swelling, redness, or edema. ENT: Nares patent. No nasal discharge, no septal abnormalities noted. External auditory canals are clear. Oropharynx with no redness, swelling, or masses, exudates, or evidence of obstruction, uvula midline. Mucous membranes moist. Neck: Trachea midline, no thyromegaly or masses palpated, and no cervical lymphadenopathy. Supple, full range of motion without nuchal rigidity, or vertebral point tenderness. No Meningismus. Chest/axilla: Normal chest wall appearance and motion. Nontender with no deformity. No lesions are appreciated. Cardiovascular: Regular rate and rhythm with a normal S1 and S2. No gallops, murmurs, or rubs. Normal PMI, no JVD. No pulse deficits. Respiratory: Lungs have equal breath sounds bilaterally, clear to auscultation and percussion. No rales, rhonchi or wheezes noted. No increased work of breathing, no retractions or nasal flaring. Abdomen/GI: Soft, non-tender, with normal bowel sounds. No distension or tympany. No guarding or rebound. No evidence of tenderness throughout. Back: No spinal tenderness. No costovertebral tenderness. Full range of motion. Skin: Warm, dry with normal turgor. Normal color with no rashes, no lesions, and no evidence of cellulitis. MS/ Extremity: Pulses equal, no cyanosis. Neurovascular intact. Full, normal range of motion. Neuro: Awake and alert, GCS 15, oriented to person, place, time, and situation. Cranial nerves II-XII grossly intact. Motor strength 5/5 in all extremities. Sensory grossly intact. Cerebellar exam normal. Normal gait. Psych: Awake, alert, with orientation to person, place and time. Behavior, mood, and affect are within normal limits. Vital Signs: 08:22 BP 114 / 80; Pulse 89; Resp 17; Temp 97.6; Pulse Ox 100% ; Weight 61.23 kg; Height 5 ll1 ft. 1 in. ; Pain 0/10; 10:20 BP 103 / 77; Pulse 64; Resp 15 S; Pulse Ox 100% on R/A; kc6 08:22 Body Mass Index 25.51 (61.23 kg, 154.94 cm) ll1 08:22 Pain Scale: Adult ll1 MDM: 08:23 Patient medically screened. sp3 08:51 Data reviewed: vital signs, nurses notes, lab test result(s). ED course: 32-year-old sp3 female with hyperglycemia of unknown etiology with no change in routine, diet or behavior. No signs of infection noted. Differential diagnosis includes hypoglycemia of unknown etiology, unknown infection, poor dietary choices not reported by patient, among others. Clinically have ruled out diabetic ketoacidosis, acute coronary syndrome, sepsis, shock, or any other critical illness. Workup will include laboratory values, serial blood sugar checks and insulin as needed once workup has been reviewed. Normal saline 1 L is also been ordered. UA and hCG also pending. Final disposition probable discharge when sugars are directionally corrected.. 10:36 ED course: Patient has hyperglycemia without acidosis with an anion gap of 12. Urine sp3 shows trace ketones. We have administer 10 units of regular insulin IV and 1 L normal saline. We will safely discharge patient home with instructions for frequent glucose checks and continue Premeal Humalog as she normally does.. 07/28 08:23 Order name: CBC with Diff; Complete Time: 09:46 sp3 07/28 08:23 Order name: CMP; Complete Time: 09:46 sp3 07/28 08:23 Order name: Lipase; Complete Time: 09:46 sp3 07/28 08:23 Order name: Test, Urine; Complete Time: 10:36 sp3 07/28 08:23 Order name: Urinalysis w/ reflexes; Complete Time: 10:36 sp3 07/28 08:38 Order name: Glucose, Ancillary Testing; Complete Time: 09:46 EDMS 07/28 10:35 Order name: Glucose, Ancillary Testing; Complete Time: 10:36 EDMS 11 08:23 Order name: IV Saline Lock; Complete Time: 08:48 sp3 07/28 08:23 Order name: Labs collected and sent; Complete Time: 08:48 sp3 Administered Medications: 08:35 Drug: NS 0.9% IV 1000 ml IV at 1 bolus Per protocol; 1000 mL bolus Route: IV; Rate: 1 db bolus; Site: right antecubital; 10:19 Follow up: Response: No adverse reaction; IV Status: Completed infusion; IV Intake: kc6 1000ml 10:24 Drug: Insulin Regular Human IVP 10 units IVP once {Co-Signature: kc6 (Wilda Martinez RN).} {Note: GLUCOSE [id number].} Route: IVP; Site: right antecubital; 10:55 Follow up: Response: No adverse reaction db Point of Care Testing: Blood Glucose: 08:26 Blood Glucose: 475 mg/dL; db Ranges: Critical Glucose Levels:Adult <50 mg/dl or >400 mg/dl <40 mg/dl or >180 mg/dl Disposition Summary: 07/29/23 10:38 Discharge Ordered Notes: Location: Home sp3 Condition: Stable sp3 Diagnosis - Hyperglycemia without acidosis sp3 Followup: sp3 - With: Private Physician - When: Upon discharge from the Emergency Department - Reason: Continuance of care Discharge Instructions: - Discharge Summary Sheet sp3 - Hyperglycemia sp3 Forms: - Medication Reconciliation Form sp3 - Antibiotic Education sp3 - Prescription Opioid Use sp3 - Patient Portal Instructions sp3 - Leadership Thank You Letter sp3 - Work release form db Signatures: Dispatcher [employer] Marla Sanchez RN RN ll1 Pramod Wilde MD MD sp3 Katy Naranjo RN RN db Wilda Martinez RN kc6 Wilda Martinez RN kc6
[2023-07-29 12:09] VITALS: BP 103/77; TEMP 97.6; O2SAT 100
== END 2023-07-29 11:20 | disposition home or self-care (01) ==
LOC: ER 08:06
DX: E10.65 Type 1 diabetes mellitus with hyperglycemia (principal)
CPT/HCPCS: 96361; 85025; 81001; 36415; 81025; 82947 ×2; 83690; 80053; 96374; 99284; J7030

== ENCOUNTER 2023-09-24 11:13 | Emergency (ER) | payer OTHER ==
--- OUTSIDE RECORDS SUMMARY | 2023-09-24 11:16 | XMS REPORT | Continuity of Care Document ---
Author Name Unknown Address [address] [facility] [address] [place] [address] [facility] Address [address] [facility] [place] [address] Care Team Providers Care Python Engineer Name Role Phone Jacob FORD, Rose Primary Care Physician GHISLAINE SAMUEL Attending Clinician Unavailable Provider, [facility] Attending Clinician Lala vailaGhislaine Walters PA-C Attending Clinician [phone] Doctor Unassigned, Blue Attending Clinician U [place] Trivedi Attending Clinician Unavailab TERRANCE Ng Attending Clinician Unavailable Terrance Alicea DDS Attending Clinician [phone] Joao Babcock DO Attending Clinician Anel Cisneros Attending Clinician + ANEL METZ Attending Clinician Unavail able TERRANCE ALICEA Admitting Clinician Unavailable Deanne Terrance PACHECO Admitting Clinician Payers Payer Name Policy Type Policy Number Effective Date Expirati on Date Source [facility] [id number] 2018 00:00:00 Problems Condition Name Condition Details Condition Category Status Onset Date Resolution Date Last Treatment Date Treating Clinician Comments Source Type 1 diabetes mellitus without complicati on Type 1 diabetes mellitus without complicati on Disease Active 2021-02 00:00: 00 [facility] Overweight (BMI 25.0-29.9) Overweight (BMI 25.0-29.9) Disease Active 2021-02 00:00: 00 [facility] Nexplanon in place Nexplanon in place Disease Active 2021-02 00:00: 00 [facility] Submandibu lar abscess Submandibu lar abscess Disease Active 2020-02 00:00: 00 [facility] Cervical Papanicola ou smear negative within last 12 months Cervical Papanicola ou smear negative within last 12 months Disease Active 05-03 00:00: 00 Overview: Formattin g of this note might be different from the original. NIL pap 10/2018, see scanned records [facility] Other general counseling and advice for contracept zelda management Other general counseling and advice for contracept zelda management Disease Active 04-28 00:00: 00 [facility] Abnormal glucose Abnormal glucose Disease Active 04-01 00:00: 00 [facility] Abnormal maternal glucose tolerance, antepartum Abnormal maternal glucose tolerance, antepartum Disease Active 03-31 00:00: 00 [facility] History of gestationa l diabetes History of gestationa l diabetes Disease Active 03-30 00:00: 00 [facility] History of pre-eclamp blanca in prior , currently History of pre-eclamp blanca in prior , currently Disease Active 03-30 00:00: 00 [facility] Multiparit y Multiparit y Disease Active 03-30 00:00: 00 [facility] Diet controlled gestationa l diabetes mellitus (GDM) in second trimester Diet controlled gestationa l diabetes mellitus (GDM) in second trimester Disease Active 05-27 00:00: 00 Overview: A2GDM- glybnurid e 2.5 mg Q am and 5 mg Q pm [facility] High risk , antepartum High risk , antepartum Disease Active 2014-02 00:00: 00 [facility] Allergies, Adverse Reactions, Alerts Allergy Name Allergy Type Status Severity Reaction(s) Onset Date Inactive Date Treating Clinician Comments Source hydrocod one Propensi ty to adverse reaction to drug Active 09-09 00:00: 00 Edouard Lester Nicolás No Known Allergie s DA Active U 06-09 00:00: 00 [facility] NO KNOWN ALLERGIE S Drug Class Active [facility] Social History Social Habit Start Date Stop Date Quantity Comments Source Exposure to SARS-CoV-2 (event) 2021-12-12 00:00:00 2021-12-22 12:38:00 Not sure [facility] Tobacco use and exposure 2021-12-22 00:00:00 2021-12-22 00:00:00 Smokeless tobacco non-user [facility] Alcohol intake 2021-12-22 00:00:00 2021-12-22 00:00:00 0 /d [facility] Tobacco Comment 2021-12-22 00:00:00 2021-12-22 00:00:00 smokes 3 cigarettes per day. pt states she stopped smoking since she found out about . [facility] History of tobacco use 2014-12-22 00:00:00 Cigarette Smoker [facility] Sex Assigned At 1990 00:00:00 1990 00:00:00 [facility] Smoking Status Start Date Stop Date Source Smokes tobacco daily 2021-12-22 00:00:00 [facility] Medications Ordered Medication Name Filled Medication Name Start Date Stop Date Current Medication? Ordering Clinician Indication Dosage Frequency Signature (SIG) Comments Components Source Lantus Solostar U-100 Insulin 100 unit/mL (3 mL) subcutaneou s pen 09-09 00:00: 00 Yes (3 mL) Edouard Monzon insulin lispro (U-100) 100 unit/mL subcutaneou s solution 06-16 00:00: 00 Yes unit/mL Edouard Monzon TAKE 1 TABLET AT BEDTIME. 00:00: 00 Yes 80 Edouard Monzon TAKE 1 TABLET DAILY. 00:00: 00 Yes [...] 2021-02 19:15: 00 12-22 18:35 :00 No [id number] 68mg [facility] insulin degludec (TRESIBA U-100 INSULIN SC) 2021-02 12:59: 59 Yes inject under the skin. [facility] dapaglifloz in-metformi n (XIGDUO XR) 10-1,000 mg [facility] 2021-02 12:40: 33 Yes Xigduo XR 10 mg-1,000 mg tablet,ext ended release Take 1 tablet every day by oral route for 30 days. [facility] cephALEXin (KEFLEX) 500 mg capsule 2021-02 00:00: 00 12-30 05:59 :00 No [id number] 500mg Take 1 capsule by mouth 4 (four) times daily for 7 days. [facility] TAKE ONE (1) TABLET(S) BY MOUTH IN THE MORNING. 10-18 00:00: 00 Yes Edouard Monzon Dose Unknown 0 4-21 00:00: 00 Yes Edouard Monzon Dose Unknown 0 4-21 00:00: 00 Yes Edouard Monzon Dose Unknown 0 4-21 00:00: 00 Yes Edouard Monzon Dose Unknown 0 4-21 00:00: 00 Yes Edouard Monzon dapaglifloz in-metformi n (XIGDUO XR) 10-1,000 mg [facility] 2020-02 05:25: 03 Yes Xigduo XR 10 mg-1,000 mg tablet,ext ended release Take 1 tablet every day by oral route for 30 days. [facility] dapaglifloz in-metformi n (XIGDUO XR) 10-1,000 mg TBp 2020-02 17:25: 56 Yes Xigduo XR 10 mg-1,000 mg tablet,ext ended release Take 1 tablet every day by oral route for 30 days. [facility] chlorhexidi ne (PERIDEX) 0.12 % mouthwash 15 mL 2020-02 14:00: 00 Yes 15mL 15 mL, Oral (Swish And Spit Out), BID, First dose on Fri12/24/20 at 0800, Until Discontinu ed, Routine [facility] Sliding Scale Insulin - Lispro (HumaLOG) + Fsbg Testing 2020-02 14:00: 00 Yes Subcutaneo us, TID MEALS+HS, First dose on Fri12/24/20 at 0800, Until Discontinu ed, Routine [facility] lactated ringers IV infusion 1,000 mL 2020-02 07:30: 00 Yes 1000mL at 50 mL/hr, 1,000 mL, IV Infusion, CONTINUOUS , Starting on Fri12/24/20 at 0130, Until Discontinu ed, Routine [facility] naloxone (NARCAN) injection 0.1 mg 2020-02 07:21: 11 Yes .1mg 0.1 mg, Slow IV Push, PRN - SEE INSTRUCTIO NS, Starting on Fri12/24/20 at 0121, Until Discontinu ed, Routine, Sedation/R espiratory Depression , See admin instructio ns. [facility] morpHINE injection 2 mg 2020-02 07:21: 11 12-26 07:20 :11 No 2mg 2 mg, Slow IV Push, Q3HPRN, Starting on Fri12/24/20 at 0121, Until 12/26/20 at 0120, Routine, Pain (scale 7-10) [facility] HYDROcodone -acetaminop hen (NORCO 5) 5-325 mg tablet 1 tablet 2020-02 07:21: 10 Yes 1{tbl} 1 tablet, Oral, Q6HPRN, Starting on Fri12/24/20 at 0121, Until Discontinu ed, Routine, Pain (scale 4-6) [facility] ibuprofen (ADVIL CHILDREN'S) 100 mg/5 mL oral suspension 600 mg 2020-02 07:21: 04 Yes 600mg 600 mg, Oral, Q6HPRN, Starting on Fri12/24/20 at 0121, Until Discontinu ed, Routine, Pain (scale 1-3) [facility] ondansetron (ZOFRAN (PF)) injection 4 mg 2020-02 07:20: 54 Yes 4mg 4 mg, Slow IV Push, Q4HPRN, Starting on 12/24/20 at 0120, Until Discontinu ed, Routine, Nausea and Vomiting (N/V) [facility] chlorhexidi ne 0.12 % mouthwash 2020-02 00:00: 00 12-22 00:00 :00 No [id number] 15mL Swish and spit out 15 mL 2 (two) times daily. [facility] ibuprofen 100 mg/5 mL oral suspension 2020-02 00:00: 00 12-22 00:00 :00 No [id number] 600mg Take 30 mL by mouth every 6 (six) hours as needed for Pain (scale 1-3). [facility] HYDROcodone -acetaminop hen 5-325 mg tablet 2020-02 00:00: 00 01-01 05:59 :00 No [id number] 1{tbl} Take 1 tablet by mouth every 6 (six) hours as needed for Pain (scale 4-6) for up to 7 days. Indication s: acute pain [facility] amoxicillin -clavulanat e (AUGMENTIN) 875-125 mg per tablet 2020-02 00:00: 00 01-01 05:59 :00 No [id number] 1{tbl} Take 1 tablet by mouth 2 (two) times daily for 7 days. [facility] Dose Unknown 2019-02 00:00: 00 Yes Edouard Monzon Dose Unknown 2019-02 00:00: 00 Yes Edouard Monzon glipizide 10 mg tablet 2019-02 00:00: 00 Yes 1mg Edouard Monzon Dose Unknown 6-09 00:00: 00 Yes Edouard Monzon Dose Unknown 06-08 00:00: 00 Yes Edouard F Nicolás Dose Unknown 06-06 00:00: 00 Yes Edouard Monzon Levemir FlexTouch U-100 Insulin 100 unit/mL (3 mL) subcutaneou s pen 02-25 00:00: 00 Yes 12(3 mL) Edouard Monzon Dose Unknown 02-25 00:00: 00 Yes Edouard Monzon Dose Unknown 02-25 00:00: 00 Yes Edouard Monzon glipizide 5 mg tablet 02-25 00:00: 00 Yes 1mg Edouard Monzon Blood-Gluco se Meter (FREESTYLE LITE METER) Kit 04-06 00:00: 00 Yes [id number] Use as directed [facility] lancets 17 gauge Misc 04-06 00:00: 00 Yes [id number] Use as directed [facility] blood sugar diagnostic (FREESTYLE LITE STRIPS) strip 04-06 00:00: 00 12-22 00:00 :00 No [id number] Use as directed [facility] vit 33-iron-fol ic-dha (SELECT-OB + DHA) 29 mg iron-1 mg -250 mg combo pack 03-31 00:00: 00 12-22 00:00 :00 No [id number] 1{packe t} Take 1 Packet by mouth daily. [facility] Vital Signs Vital Name Observation Time Observation Value Comments S ource Systolic blood pressure 2021-12-22 17:38:00 119 mm[Hg] [facility] Diastolic blood pressure 2021-12-22 17:38:00 77 mm[Hg] [facility] Heart rate 2021-12-22 17:38:00 76 /min [facility] Body temperature 2021-12-22 17:38:00 35.83 [facility] Respiratory rate 2021-12-22 17:38:00 18 /min [facility] Body height 2021-12-22 17:38:00 154.9 cm [facility] Body weight 2021-12-22 17:38:00 60.51 kg [facility] BMI 2021-12-22 17:38:00 25.21 kg/m2 [facility] Systolic blood pressure 2020-12-24 17:05:00 125 mm[Hg] [facility] Diastolic blood pressure 2020-12-24 17:05:00 87 mm[Hg] [facility] Heart rate 2020-12-24 17:05:00 91 /min [facility] Body temperature 2020-12-24 17:05:00 36.22 [facility] Respiratory rate 2020-12-24 17:05:00 18 /min [facility] Oxygen saturation in Arterial blood by Pulse oximetry 2020-12-24 17:05:00 98 /min [facility] Body weight 2020-12-24 06:32:00 68.04 kg [facility] BMI 2020-12-24 06:32:00 28.34 kg/m2 [facility] Systolic blood pressure 2020-04-28 16:31:00 106 mm[Hg] [facility] Diastolic blood pressure 2020-04-28 16:31:00 73 mm[Hg] [facility] Heart rate 2020-04-28 16:31:00 77 /min [facility] Body temperature 2020-04-28 16:31:00 36.72 [facility] Respiratory rate 2020-04-28 16:31:00 16 /min [facility] Body height 2020-04-28 16:31:00 154.9 cm [facility] Body weight 2020-04-28 16:31:00 59.081 kg [facility] BMI 2020-04-28 16:31:00 24.61 kg/m2 [facility] Systolic blood pressure 2020-04-28 16:31:00 106 mm[Hg] [facility] Diastolic blood pressure 2020-04-28 16:31:00 73 mm[Hg] [facility] Heart rate 2020-04-28 16:31:00 77 /min [facility] Body temperature 2020-04-28 16:31:00 36.72 [facility] Respiratory rate 2020-04-28 16:31:00 16 /min [facility] Body height 2020-04-28 16:31:00 154.9 cm [facility] Body weight 2020-04-28 16:31:00 59.081 kg [facility] BMI 2020-04-28 16:31:00 24.61 kg/m2 [facility] BP Diastolic 2023-09-10 11:07:00 86 mm[Hg] Santhosh phen F Nicolás Weight Measured 2023-09-10 11:07:00 131.00 pounds Edouard F Nicolás Height Measured 2023-09-10 11:07:00 60.00 inches Edouard F Nicolás Body Temperature 2023-09-10 11:07:00 97.80 degrees Edouard F Nicolás Heart Rate 2023-09-10 11:07:00 97.00 /min Barby en F Nicolás Respiratory Rate 2023-09-10 11:07:00 18.00 /min Edouard F Nicolás BP Systolic 2023-09-10 11:07:00 120 mm[Hg] Step hen F Nicolás Height Measured 2023-04-15 15:46:00 60.00 inches Edouard [...] 2019-07-27 11:41:00 16.00 /min Edouard F Nicolás BP Systolic 2019-06-07 16:01:00 114 mm[Hg] Step hen F Nicolás BP Diastolic 2019-06-07 16:01:00 72 mm[Hg] Santhosh phen F Nicolás Weight Measured 2019-06-07 16:01:00 136.00 pounds Edouard F Nicolás Height Measured 2019-06-07 16:01:00 60.00 inches Edouard F Nicolás Body Temperature 2019-06-07 16:01:00 98.10 degrees Edouard F Nicolás Heart Rate 2019-06-07 16:01:00 101.00 /min Step hen F Nicolás Respiratory Rate 2019-06-07 16:01:00 16.00 /min Edouard F Nicolás BP Systolic 2019-02-25 17:49:00 106 mm[Hg] Step hen F Nicolás BP Diastolic 2019-02-25 17:49:00 71 mm[Hg] Santhosh Monzon Weight Measured 2019-02-25 17:49:00 134.20 pounds Edouard Monzon Height Measured 2019-02-25 17:49:00 60.00 inches Edouard Monzon Body Temperature 2019-02-25 17:49:00 98.60 degrees Edouard Monzon Heart Rate 2019-02-25 17:49:00 74.00 /min Barby Monzon Respiratory Rate 2019-02-25 17:49:00 Edouard Monzon Procedures Procedure Date / Time Performed Performing Clinicia n Source POCT TEST 2021-12-22 17:49:00 [facility] GARDASIL 9 (HPV 9V) VACCINE 2021-12-22 17:48:52 [facility] ASSIGNMENT OF BENEFITS 2021-12-22 17:24:31 Docgertrude khan Unassigned, [facility] EXTERNAL PROVIDER RECORDS 2021-01-02 06:01:00 Doctor Unassigned, [facility] POCT GLUCOSE (AUTOMATED) 2020-12-24 14:10:00 [facility]ance [facility] ASSIGNMENT OF BENEFITS 2020-04-28 17:41:20 Docgertrude r Unassigned, [facility] FLU VACC ([id number]), 6+ MONTHS, IM, QUAD 2020-04-28 17:21:26 [facility] Encounters Start Date/Time End Date/Time Encounter Type Admission Type Attending Clinicians Care Facility Care Department Encounter ID Source 2023-09-15 09:57:31 2023-09-15 09:57:31 Outpatient [facility] [id number] Edouard Monzon 2023-09-10 10:58:00 2023-09-10 10:58:00 Outpatient [id number] [id number] Edouard Monzon 2023-09-10 00:00:00 2023-09-10 00:00:00 Outpatient Visit [facility] [id number] Edouard Monzon 2023-06-17 00:00:00 2023-06-17 00:00:00 Outpatient Visit [facility] [id number] Edouard Batista [place] 2023-04-18 08:56:19 2023-04-18 08:56:19 Outpatient SFA [facility] [id number] Edouard Batista [place] 2023-04-15 15:40:19 2023-04-15 15:40:19 Outpatient [facility] [id number] Edouard Batista [place] 2023-02-24 13:34:59 2023-02-24 13:34:59 Outpatient [facility] [id number] Edouard Batista [place] 2022-12-13 10:21:56 2022-12-13 10:21:56 Outpatient [facility] [id number] Edouard Batista [place] 2022-11-30 12:58:22 2022-11-30 12:58:22 Outpatient [facility] [id number] Edouard Batista [place] 2021-12-22 12:45:00 2021-12-22 13:22:01 Outpatient GHISLAINE GAMBOA [facility] [id number] [facility] 2021-12-22 12:45:00 2021-12-22 13:22:01 Office Visit Provider, MagalieRmchp Ghislaine Swenson [facility] .114 [id number] [id number] [facility] 2021-12-22 00:00:00 2021-12-22 00:00:00 Orders Only Doctor Unassigned, [facility] .114 [id number] [id number] [id number] [facility] 2021-01-02 00:00:00 2021-01-02 00:00:00 Orders Only Doctor Unassigned, Blue [facility] .114 350.1.13.10 [id number] [id number] [facility] 2020 14:00:00 2020 14:00:00 [facility]patient [facility] [id number] [facility] 2020-12-26 16:30:00 2020-12-26 16:30:00 Outpatient R [facility] [id number] [facility] 2020-12-24 01:34:00 2020-12-24 17:25:00 Outpatient X [facility] HERMILO [id number] [facility] 2020-12-24 01:34:00 2020-12-24 17:25:00 [facility] [id number] [id number] 4.2.7.2.686 [id number] [facility] 2020-05-09 00:00:00 2020-05-09 00:00:00 Patient Outreach Joao Babcock [facility] [id number] [id number] 2020-05-09 00:00:00 2020-05-09 00:00:00 Patient Outreach Joao Babcock Kostas [facility] [id number] [id number] [id number] [id number] [facility] 2020-04-28 10:17:04 2020-04-28 11:41:16 Office Visit Anel Metz [facility] [id number] [id number] [id number] 2020-04-28 10:17:04 2020-04-28 11:41:16 Office Visit Anel Metz [facility] [id number] [id number] 4.2.7.2.686 [id number] [facility] 2020-04-28 10:15:00 2020-04-28 10:15:00 Outpatient R ARIAKATELINRACHELANEL [facility] [id number] [facility] 2020-04-28 00:00:00 2020-04-28 00:00:00 Orders Only Doctor Unassigned, [facility] [id number] 350.1.13.10 [id number] [id number] [facility] Results Test Description Test Time Test Comments Results Result Co mments Source LIPID [id number] 05:04:06* Test Item Value Reference Range Interpretation [...] SPECIMENS. FOR MOREINFORMATION, SEE CLIENT ANNOUNCEMENT AT [email or web address] CalcLDL-C RISK RATIO LDL/HDL (test code = 2238) (NOTE) RATIO <3.22 UNABLE TO RADHA CULATE COMPREHENSIVE METABOLIC [id number] 05:04:06* Test Item Value Reference Range Interpretation Comme nts GLUCOSE (test code = 2217) 372 MG/DL 70-99 H BUN (test code = 2208) 14 MG/DL 6-20 CREATININE (test code = 2214) 0.69 MG/DL 0.60-1.30 eGFR (2020 CKD-EPI) (test code = 09985) 118 ML/MIN/1.73 >60 CALC BUN/CREAT (test code = 223) 20 RATIO 6-28 SODIUM (test code = 2230) 131 MEQ/L 133-146 L POTASSIUM (test code = 2227) 4.2 MEQ/L 3.5-5.4 CHLORIDE (test code = 2214) 98 MEQ/L 95-107 CARBON DIOXIDE (test code = 2205) 21 MEQ/L 19-31 CALCIUM (test code = 2208) 9.2 MG/DL 8.5-10.5 PROTEIN, TOTAL (test code = 2228) 7.0 G/DL 6.1-8.3 ALBUMIN (test code = 2200) 4.4 G/DL 3.5-5.2 CALC GLOBULIN (test code = 2239) 2.6 G/DL 1.9-3.7 CALC A/G RATIO (test code = 2233) 1.7 RATIO 1.0-2.6 BILIRUBIN, TOTAL (test code = 2206) <0.2 MG/DL <=1.2 ALKALINE PHOSPHATASE (test code = 2203) 83 U/L 40-114 AST (test code = 2217) 20 U/L 9-40 ALT (test code = 2218) 15 U/L 5-40 ALBUMIN/CREATININE RATIO, URINE, [id number] 04:18:31* Test Item Value Reference Range Interpretation Comme nts CREATININE, URINE, CONC. (test code = 2072) 30.4 MG/DL NOT ESTAB ALBUMIN, URINE, RANDOM (test code = 37648) 2.4 MG/DL NOT ESTAB CALC ALBUMIN/CREAT, RND (test code = 37090) 79 MG/G <30 H Note: Albumin/Cr eatinine ratio reference interval reflects ADA and NKF guidelines. UNLESS OTHERWISE INDICATED, ALL TESTING PERFORMED AT [facility] [address] [place] [address] IMPROVEMENT SPECIALIST: FRANCO UGARTE M.D. CLIA NUMBER [id number] [facility] [place]. [id number] HEMOGLOBIN [id number] 00:00:00* Test Item Value Reference Range Interpretation Comme nts HEMOGLOBIN A1c (test code = 23531) 12.8 % Edouard Batista AustinLIPID [id number] 00:00:00* Test Item Value Reference Range Interpretation Comme nts CHOLESTEROL (test code = 2210) 261 MG/DL TRIGLYCERIDES (test code = 2232) 657 MG/DL HDL CHOLESTEROL (test code = 2220) 47 MG/DL CALC LDL CHOL (test code = 2237) (NOTE) MG/DL RISK RATIO LDL/HDL (test cod e = 2238) (NOTE) RATIO Edouard MonzonCOMPREHENSIVE METABOLIC [id number] 00:00:00* Test Item Value Reference Range Interpretation Comme nts GLUCOSE (test code = 2217) 372 MG/DL BUN (test code = 2208) 14 MG/DL CREATININE (test code = 2214) 0.69 MG/DL eGFR (2020 CKD-EPI) (test code = 44724) 118 ML/MIN/1.73 CALC BUN/CREAT (test code = [...] 2218) 20 U/L ALT (test code = 2219) 15 U/L Edouard MonzonALBUMIN/CREATININE RATIO, RANDOM [id number] 00:00:00* Test Item Value Reference Range Interpretation Comme nts CREATININE, URINE, CONC. (te st code = 2072) 30.4 MG/DL ALBUMIN, URINE, RANDOM (test code = 51797) 2.4 MG/DL CALC ALBUMIN/CREAT, RND (kelsie t code = 20905) 79 MG/G Edouard MonzonHEMOGLOBIN [id number] 00:00:00* Test Item Value Reference Range Interpretation Comme nts HEMOGLOBIN A1c (test code = 82730) 12.8 % Edouard MonzonLIPID [id number] 00:00:00* Test Item Value Reference Range Interpretation Comme nts CHOLESTEROL (test code = 2210) 261 MG/DL TRIGLYCERIDES (test code = 2232) 657 MG/DL HDL CHOLESTEROL (test code = 2220) 47 MG/DL CALC LDL CHOL (test code = 2237) (NOTE) MG/DL RISK RATIO LDL/HDL (test cod e = 2238) (NOTE) RATIO Edouard MonoznCOMPREHENSIVE METABOLIC [id number] 00:00:00* Test Item Value Reference Range Interpretation Comme nts GLUCOSE (test code = 2217) 372 MG/DL BUN (test code = 2208) 14 MG/DL CREATININE (test code = 2214) 0.69 MG/DL eGFR (2020 CKD-EPI) (test code = 81491) 118 ML/MIN/1.73 CALC BUN/CREAT (test code = [...] 2218) 20 U/L ALT (test code = 2219) 15 U/L Edouard Batista AustinALBUMIN/CREATININE RATIO, RANDOM [id number] 00:00:00* Test Item Value Reference Range Interpretation Comme nts CREATININE, URINE, CONC. (te st code = 2072) 30.4 MG/DL ALBUMIN, URINE, RANDOM (test code = 85752) 2.4 MG/DL CALC ALBUMIN/CREAT, RND (kelsie t code = 83606) 79 MG/G Edouard MonzonLIPID [id number] 03:43:12* Test Item Value Reference Range Interpretation [...] SPECIMENS. FOR MOREINFORMATION, SEE CLIENT ANNOUNCEMENT AT [email or web address] RISK RATIO LDL/HDL (test code = 2238) 2.94 RATIO <3.22 COMPREHENSIVE METABOLIC [id number] 03:43:12* Test Item Value Reference Range Interpretation Comme nts GLUCOSE (test code = 7) 507 MG/DL 70-99 HH RESULTS RECHECKE D AND VERIFIED BUN (test code = 2207) 13 MG/DL 6-20 CREATININE (test code = 2213) 0.80 MG/DL 0.60-1.30 eGFR (2020 CKD-EPI) (test code = 37856) 101 ML/MIN/1.73 >60 CALC BUN/CREAT (test code = 2234) 16 RATIO 6-28 SODIUM (test code = 223) 133 MEQ/L 133-146 POTASSIUM (test code = 2228) 4.5 MEQ/L 3.5-5.4 CHLORIDE (test code = 2214) 97 MEQ/L 95-107 CARBON DIOXIDE (test code = 2205) 22 MEQ/L 19-31 CALCIUM (test code = 2208) 10.2 MG/DL 8.5-10.5 PROTEIN, TOTAL (test code = 2228) 7.6 G/DL 6.1-8.3 ALBUMIN (test code = 2200) 4.6 G/DL 3.5-5.2 CALC GLOBULIN (test code [...] TESTING PERFORMED AT [facility] [address] [place] [id number] IMPROVEMENT SPECIALIST: FRANCO UGARTE M.D. [place] NUMBER [id number] [facility]. [id number] LIPID [id number] 00:00:00* Test Item Value Reference Range Interpretation Comme nts CHOLESTEROL (test code = 2210) 294 MG/DL TRIGLYCERIDES (test code = 2232) 280 MG/DL HDL CHOLESTEROL (test code = 2220) 62 MG/DL CALC LDL CHOL (test code = 2237) 182 MG/DL RISK RATIO LDL/HDL (test cod e = 2238) 2.94 RATIO Edouard MonzonCOMPREHENSIVE METABOLIC [id number] 00:00:00* Test Item Value Reference Range Interpretation Comme nts GLUCOSE (test code = 2217) 507 MG/DL BUN (test code = 2208) 13 MG/DL CREATININE (test code = 2214) 0.80 MG/DL eGFR (2020 CKD-EPI) (test code = 53250) 101 ML/MIN/1.73 CALC BUN/CREAT (test code = [...] (test code = 2219) 13 U/L Edouard MonzonLIPID [id number] 00:00:00* Test Item Value Reference Range Interpretation Comme nts CHOLESTEROL (test code = 2210) 294 MG/DL TRIGLYCERIDES (test code = 2232) 280 MG/DL HDL CHOLESTEROL (test code = 2220) 62 MG/DL CALC LDL CHOL (test code = 2237) 182 MG/DL RISK RATIO LDL/HDL (test cod e = 2238) 2.94 RATIO Edouard MonzonCOMPREHENSIVE METABOLIC [id number] 00:00:00* Test Item Value Reference Range Interpretation Comme nts GLUCOSE (test code = 2217) 507 MG/DL BUN (test code = 2208) 13 MG/DL CREATININE (test code = 2214) 0.80 MG/DL eGFR (2020 CKD-EPI) (test code = 84819) 101 ML/MIN/1.73 CALC BUN/CREAT (test code = [...] code = 2219) 13 U/L Edouard MonzonHEMOGLOBIN [id number] 02:28:23* Test Item Value Reference Range Interpretation Comme nts HEMOGLOBIN A1c (test code = 86731) 12.9 % 4.2-5.6 H [employer] GUIDELINES FOR HGB A1C: [...] CONSIDER ALTERNATE TESTING OR LABORATORY CONSULTATION. HEMOGLOBIN [id number] 00:00:00* Test Item Value Reference Range Interpretation Comme nts HEMOGLOBIN A1c (test code = 28674) 12.9 % Edouard MonzonHEMOGLOBIN [id number] 00:00:00* Test Item Value Reference Range Interpretation Comme nts HEMOGLOBIN A1c (test code = 05519) 12.9 % Edouard Batista AustinPOCT [id number] 17:50:00* Test Item Value Reference Range Interpretation Comme nts POCT PREG (test code = 1605) Negative On board controls acceptable with C Line (test code = 3574) Yes POCT PREG LOT # (test code = 3575) POCT PREG TEST DATE ( test code = 3576) [facility] [id number] 17:50:00* Test Item Value Reference Range Interpretation Comme nts POCT PREG (test code = 1605) Negative On board controls acceptable with C Line (test code = 3574) Yes POCT PREG LOT # (test code = 3575) POCT PREG TEST DATE ( test code = 3576) [facility]-CoV-2 (COVID-19), RT-[id number] 17:22:59* Test Item Value Reference Range Interpretation Comments SARS-CoV-2 INTERPRETATION (test code = 63493) NEGATIVE SEE NOTE SARS-CoV-2 R NA NOT [...] prevalence is high. SOURCE (test code = 78969) NASOPHARYNGEAL Note: Methodolog y is Juliana Leeann Real-Time RT-PCR. The expected result or reference range is NEGATIVE (Not Detected). For more information regarding COVID-19 testing to include clinicalinformation, methodology detail, intended use, FDA authorization andrecommended fact sheets for patients or healthcare providers, see [facility] Announcement: SARS-CoV-2 (COVID-19) by NAAT at URL below (note,fact sheets are provided by method given in report:[email or web address] Alternatively, see downloadable PDF fact sheet at:[email or web address] UNLESS OTHERWISE INDICATED, ALL TESTING PERFORMED [facility]ENTER[facility] [employer] [address] [place] [address] IMPROVEMENT SPECIALIST: ERICK NEAL M.D. CLIA NUMBER [id number] [facility] [place]. [id number] SARS-CoV-2 (COVID-19) by RT-PCR (HIGH RISK)2021-02-25 00:00:00* Test Item Value Reference Range Interpretation Comme nts SARS-CoV-2 INTERPRETATION (test code = 71065) NEGATIVE SOURCE (test code = 28895) NASOPHARYNGEAL Edouard Batista [id number]-ViZ-5 (COVID-19) by RT-PCR (HIGH RISK)2021-02-25 00:00:00* Test Item Value Reference Range Interpretation Comme nts SARS-CoV-2 INTERPRETATION (test code = 18888) NEGATIVE SOURCE (test code = 55892) NASOPHARYNGEAL Edouard MonzonPOCT GLUCOSE (AUTOMATED)2020-12-24 14:12:21* Test Item Value Reference Range Interpretation Comme nts POCT GLU (test code = 0395028456) 212 mg/dL 70-110 H Lab Interpretation (test cod e = 97325-3) [facility] (COVID-19) by RT-PCR (HIGH RISK) 2020-03-05 00:00:00* Test Item Value Reference Range Interpretation Comme nts SARS-CoV-2 INTERPRETATION (t est code = 54662) NEGATIVE SOURCE (test code = 25511) NOT SPECIFIED Edouard Batista [id number] (COVID-19) by RT-PCR (HIGH RISK)2020-03-05 00:00:00* Test Item Value Reference Range Interpretation Comme nts SARS-CoV-2 INTERPRETATION (t est code = 22078) NEGATIVE SOURCE (test code = 33968) NOT SPECIFIED Edouard Batista AustinHEMOGLOBIN [id number] 00:00:00* Test Item Value Reference Range Interpretation Comme ritchie HEMOGLOBIN A1c (test code = 11300) 10.2 % Edouard MonzonHEMOGLOBIN [id number] 00:00:00* Test Item Value Reference Range Interpretation Comme ritchie HEMOGLOBIN A1c (test code = 19993) 10.2 % Edouard MonzonCBC W/AUTO [id number] 00:00:00* Test Item Value Reference Range Interpretation [...] = 1015) 389 K/UL Edouard MonzonCOMPREHENSIVE METABOLIC [id number] 00:00:00* Test Item Value Reference Range Interpretation Comme nts GLUCOSE (test code = 2217) 317 MG/DL BUN (test code = 2208) 12 MG/DL CREATININE (test code = 2214) 0.78 MG/DL eGFR AMER. (test cod e = 78275) 120 ML/MIN/1.73 eGFR NON- AMER. (test code = 50170) 103 ML/MIN/1.73 CALC BUN/CREAT (test code = [...] code = 2219) 10 U/L Edouard MonzonHEMOGLOBIN [id number] 00:00:00* Test Item Value Reference Range Interpretation Comme nts HEMOGLOBIN A1c (test code = 87469) 10.7 % Edouard MonzonLIPID [id number] 00:00:00* Test Item Value Reference Range Interpretation Comme nts CHOLESTEROL (test code = 2210) 250 MG/DL TRIGLYCERIDES (test code = 2232) 336 MG/DL HDL CHOLESTEROL (test code = 2220) 43 MG/DL CALC LDL CHOL (test code = 2237) 155 MG/DL RISK RATIO LDL/HDL (test cod e = 2238) 3.60 RATIO Edouard MonzonCBC W/AUTO [id number] 00:00:00* Test Item Value Reference Range Interpretation [...] = 1015) 389 K/UL Edouard MonzonCOMPREHENSIVE METABOLIC [id number] 00:00:00* Test Item Value Reference Range Interpretation Comme nts GLUCOSE (test code = 2217) 317 MG/DL BUN (test code = 2208) 12 MG/DL CREATININE (test code = 2214) 0.78 MG/DL eGFR AMER. (test cod e = 38225) 120 ML/MIN/1.73 eGFR NON- AMER. (test code = 92361) 103 ML/MIN/1.73 CALC BUN/CREAT (test code = 2235) 15 RATIO SODIUM (test code = 2231) 138 MEQ/L POTASSIUM (test code = 2228) 4.3 MEQ/L CHLORIDE (test code = 2215) 104 MEQ/L CARBON DIOXIDE (test code = 2206) 20 MEQ/L CALCIUM (test code = 2209) 9.1 MG/DL PROTEIN, TOTAL (test code = 222) 6.9 G/DL ALBUMIN (test code = 220) 4.6 G/DL CALC GLOBULIN (test code = 2240) 2.3 G/DL CALC A/G RATIO (test code = 2234) 2.0 RATIO BILIRUBIN, TOTAL (test code = 2206) 0.3 MG/DL ALKALINE PHOSPHATASE (test code = 2203) 85 U/L AST (test code = 221) 10 U/L ALT (test code = 2219) 10 U/L Edouard MonzonHEMOGLOBIN [id number] 00:00:00* Test Item Value Reference Range Interpretation Comme nts HEMOGLOBIN A1c (test code = 33654) 10.7 % Edouard MonzonLIPID [id number] 00:00:00* Test Item Value Reference Range Interpretation Comme nts CHOLESTEROL (test code = 2210) 250 MG/DL TRIGLYCERIDES (test code = 2232) 336 MG/DL HDL CHOLESTEROL (test code = 2220) 43 MG/DL CALC LDL CHOL (test code = 2237) 155 MG/DL RISK RATIO LDL/HDL (test cod e = 2238) 3.60 RATIO Edouard [id number] 15:58:00* Test Item Value Reference Range Interpretation Comme nts GLUBED (test code = GLUBED) 148 mg/dL 65-110 H [id number] 10:51:00* Test Item Value Reference Range Interpretation Comme nts GLUBED (test code = GLUBED) 174 mg/dL 65-110 H [id number] 06:04:00* Test Item Value Reference Range Interpretation Comme nts GLUBED (test code = GLUBED) 83 mg/dL 65-110 N GLYCOSYLATED HEMOGLOBIN [id number] 04:40:00* Test Item Value Reference Range Interpretation [...] code = MBG) 189 MG/DL 70-110 H COMPREHENSIVE METABOLIC [id number] 04:40:00* Test Item Value Reference Range Interpretation [...] as fructosamineshould be considered for these patients. [id number] 00:14:00* Test Item Value Reference Range Interpretation Comme nts GLUBED (test code = GLUBED) 194 mg/dL 65-110 H COMPREHENSIVE METABOLIC [id number] 21:06:00* Test Item Value Reference Range Interpretation [...] C) (test code = GLYHGB) CBC W/AUTO [id number] 20:53:00* Test Item Value Reference Range Interpretation [...] (test code = PLTMR) NORMAL NORMAL URINALYSIS [id number] 20:08:00* Test Item Value Reference Range Interpretation [...] #/hpf NONE SEEN A URINE SAMPLE: CLEAN [id number] 20:01:00* Test Item Value Reference Range Interpretation Comme nts GLUBED (test code = GLUBED) 196 mg/dL 65-110 H URINALYSIS [id number] 19:53:00* Test Item Value Reference Range Interpretation [...] CLEAN CATCH Notes Date/Time Note Provider Source Edouard Robbins [facility]2024-04-30 00:00:00 Plan Activity see above plan 2019-02-25 Discussed with patient yanna salguero a low-fat, low-cholesterol, low-sugar, low-carbs diet. Eat more green leafy vegetables 2019-02-25 Recommend healthy eating wit h foods from a variety of food groups. Encourage to eat more vegetables and appropriate portion sizes, and avoid sodas. Aerobic exercise daily. Appended: 2019-07-05 Limit fat intake to no more than 20% to 35% of your total calorie intake. For a person following a 1,800-calorie diet, this means eating no more than 40 to 70 grams of fat each day. Choose complex carbohydrates, such as whole grains, vegetables, and fruits. About 45% to 65% of your total calorie intake should come from carbohydrate. For someone following a 1,800-calorie diet, this means eating about 200 to 300 grams of carbohydrate each day. Choose low-fat protein sources, such as fish, poultry, and legumes (for example, boss beans, lentils, and split peas). About 10% to 35% of your total calorie intake should come from protein. For someone following a 1,800-calorie diet, this means eating about 45 to 160 grams of protein each day. Get enough fiber each day. Men should aim for 38 grams a day, and women should aim for 25 grams a day. Have no more than 1 alcohol drink a day for women and 2 alcohol drinks a day for men. 2019-02-25 Discussed with pt daily exer cise for at least 30mins in order to maintain a healthy lifestyle. 2019-02-25 recommend keep blood sugars in good control to decrease neuropathy. continue to monitor at each visit. CBC, CMP, HGA1C, LIPID PANEL at next OV 2019-02-25 Covid19 testing. RTO pending labs. self-quarantine until result symptoms treatment ER precaution for respiratory distress Follow up CDC guidelines for isolation/quarantine Supportive care, drink plenty of fluids, rest, and take tylenol for headache. RTO 1-3 days if positive for covid19 and as needed 2020-03-02 Co-vid test - results pendin g Practice social distancing and good handwashing and cover cough , wear mask RTC as needed ER precautions 2020-03-04 Continue eating a well kelvin bebeto diet and have physical activity at least 30 min a day 2022-11-30 REFILL Lispro 5 units with meals BID glucose gel sent for pt to use if BG < 60 Er precautions given 2022-11-30 UA URINE CX macrobid 100 mg bid po side effects of meds discussed with pt. 2023-02-24 LIPID-FASTING Start Atorvastatin 20 mg FU in 3 months 2023-02-24 UA URINE CX macrobid 100 mg bid po side effects of meds discussed with pt. 2023-02-25 [facility] 17:42:[id number] [place] [address] PATIENT NAME: AILYN MCCOY ADMIT DATE: 06/09/18 ACCOUNT NO: [id number] ROOM NO: [facility] AGE: 27 SEX: F ADMITTING PHYSICIAN: Richard Bojorquez MD ATTENDING PHYSICIAN: Richard Bojorquez MD ADMISSION DATE: 06/09/2018 TRIAGE EVALUATION Admission to [facility] for observation. For evaluation on 06/09/[address] Kathy Corona. The patient was seen in the MAC unit as no doc patient, then admitted for obs with Dr. Bojorquez accepting the patient's care. HISTORY OF PRESENT ILLNESS: The patient is a 27-year-old G2, P0-1-0-1 with unsure last menstrual period and estimated date of confinement 09/16/2018. She presented at 25-6/7 weeks. She reports she was told to come to the hospital for elevated blood glucose levels. She states that a week ago, she had her 1-hour Glucola, which was elevated, then a 3-hour GTT, which was also abnormal. She has been checking her sugars at home. She was not previously diagnosed with diabetes except in a prior with diet-controlled gestational diabetes. She states testing 6 weeks after that delivery was negative and she had had no symptoms of abnormal blood glucose levels since. She was seeing Dr. Moreno for care and started on Toujeo 5 days ago. She was receiving 5 units daily. She states that after lunch with 3 slices of mckinney and one egg, her sugar was greater than 330. She used her Toujeo. Now on arrival in the [facility], her blood glucose level is 196. She is given 6 units of regular insulin per sliding scale. Her care began with Dr. Moreno in April. She has had 5 or 6 visits with multiple visits in the last 2 weeks due to the elevated blood glucose levels. She states she did have a placenta covering the opening of her cervix, but otherwise all ultrasounds were normal. She states her hemoglobin A1c was 8.8 . She also states she was told she has anemia. Otherwise, the patient reports her labs have been normal. PAST MEDICAL HISTORY: Negative (the patient denies prior history of diabetes outside of past ). PAST SURGICAL HISTORY: Laparoscopic appendectomy in 2005 and wisdom teeth in 2010. ALLERGIES: NO KNOWN DRUG ALLERGIES. MEDICATIONS: vitamins and Toujeo. OBSTETRICAL HISTORY: In 2016, a 34-week vaginal delivery following induction for -induced hypertension. She was delivered of a male weighing 6 pounds 7 ounces. In addition to the severe PIH, she also had diet-controlled PATIENT NAME: AILYN MCCOY gestational diabetes in that , otherwise no complications. GYNECOLOGIC HISTORY: Menarche at age 14 with irregular periods every 2 to 3 months, lasting 6 to 7 days, moderate in amount with minimal cramping. She was diagnosed with gonorrhea in 2008. She and her partner were treated and all testing since have been negative. All Pap smears normal. She has been using Lo Loestrin control pill. This was an unplanned . She last used the pill in March. SOCIAL HISTORY: One pack per day tobacco use for 7 years. She is trying to wean off cigarettes now. Occasional pre- and early first trimester alcohol use before learning she was . The patient denies history of illicit drugs. She lives with her son. She has no longer involved with the father of her baby. She has no information on his health. She states she drinks 4 to 6 beers per weekend and she states that she lost her significant other, when he suddenly she was very sad and she was drinking heavily at a one night stand and which resulted in this . 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 She is on leave at this time. She has no information on the health of her parents or grandparents as she was adopted. Her sister is known to be insulin-dependent diabetic, diagnosed at age 23. REVIEW OF SYSTEMS: A 12-point review of systems is negative except as stated above. PHYSICAL EXAMINATION: GENERAL: The patient is a well-nourished, well-developed white female in no acute distress. VITAL SIGNS: Height 5 feet, weight prior to the 120 pounds and at most recent visit to clinic 135 pounds. The patient is lying in the hospital stretcher in MAC unit triage. Temperature 97.7, respirations 18, pulse 74, blood pressure 108/62. NECK: Within normal limits without lymphadenopathy or thyromegaly. CHEST: Clear to auscultation bilaterally with regular rate and rhythm. BREASTS: Deferred. ABDOMEN: Soft, nontender, gravid with a fundal height 4 cm above the umbilicus. PELVIC: Deferred. EXTREMITIES: Without edema. Bilateral patellar reflexes, 2+. NEUROLOGIC: Nonfocal. The patient is awake, alert, and oriented x3. LABORATORY DATA: At admission, white blood cell 8.6, hemoglobin 9.3, hematocrit 28.4, and platelets 360,000. Sodium 135, potassium 4.0, chloride 101, bicarbonate 21, BUN 10, creatinine 0.7, and glucose 176. ALT and AST slightly low at 10 and 11 respectively, alkaline phosphatase 78. Hemoglobin A1c 8.2. Urine shows 3+ glucose, otherwise negative with 0 to 2 RBCs, 2 to 5 WBCs, and few epithelial cells. DIAGNOSTIC DATA: NST with baseline heart tones in the 140s to 150s range. Accelerations consistent with gestational age. Occasional variable decels, no contractions noted. ASSESSMENT AND PLAN: I spoke to Dr. Bojorquez and he agreed to accept the patient to his service. She is started on insulin sliding scale. Nutritional consult and perioperative educator will see the patient in the morning. She will have a social service consult as well. PATIENT NAME: AILYN MCCOY The patient is a 27-year-old G2, P0-1-0-1 at 25-6/7th weeks with recently diagnosed diabetes in the second trimester, now poorly controlled. Admit to Dr Bojorquez as above. The patient is also a smoker and has a very poor social situation. The patient is also strongly encouraged to quit smoking altogether. 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 Dictated By: Kathy Corona MD WT: HP:JERRY/YESSY/RITCHIE Conf#: [id number]/DID#: [id number] Authenticated and Edited by Kathy Corona MD On 07/08/18 8:40:30 AM at 0843 PATIENT NAME: AILYN MCCOY 14:02:00 [facility] OB Disch Undelivered REPORT#:[id number] REPORT STATUS: Signed DATE:06/10/18 TIME: 1402 PATIENT: AILYN MCCOY UNIT #: [id number] ROOM/BED: [address] : 90 AGE: 27 SEX: F ATTEND: Richard Bojorquez MD ADM AUTHOR: Richard Bojorquez MD * ALL edits or amendments must be made on the electronic/computer document * Subjective Subjective Patient reports: Patient reports: No: complaints. Comments: PLZ SEE NOTE EARLIER, I SAW HER EARLIER Objective General VS: Last Documented: Result Date Time B/P Mean 73.0 06/10 09 B/P 101/58 06/10 904 Temp 97.6 06/10 904 Pulse 77 06/10 0905 Resp 18 06/10 09 Vital Signs Date Temp Pulse Resp B/P B/P Mean Pulse Ox FiO2 06/09-06/10 97.6-98.3 77-94 18 101-112/58-69 73.0-85.0 Physical Exam FHR evaluation: Baby A baseline: [...] at 25.6 WEEKS gestation admitted for uncontrolled GDM Plan: d/c home on insulin Hospital course: she was admitted and started on weight based insulin , sugars went down Consultation(s) performed: Consultation performed: NUTRITION/DIABETES EDUCATION at 1404 RPT #:[id number] END OF REPORT [id number] 14:02:00 [facility] OB Disch Undelivered REPORT#:[id number] REPORT STATUS: Signed DATE:06/10/18 TIME: 1402 PATIENT: AILYN MCCOY UNIT #: [id number] ROOM/BED: [address] : 90 AGE: 27 SEX: F ATTEND: Richard Bojorquez MD ADM AUTHOR: Richard Bojorquez MD * ALL edits or amendments must be made on the electronic/computer document * See Addendum Subjective Subjective Patient [...] 06/09-06/10 97.6-98.3 77-94 18 101-112/58-69 73.0-85.0 Physical Exam FHR evaluation: Baby A baseline: [...] at 25.6 WEEKS gestation admitted for uncontrolled GDM Plan: d/c home on insulin Hospital course: she was admitted and started on weight based insulin , sugars went down Consultation(s) performed: Consultation performed: NUTRITION/DIABETES EDUCATION at 1404 Addendum 1: 06/10/18 1412 by Richard Bojorquez MD she will email me her sugar log in a week and weekly at 1412 RPT #:[id number] END OF REPORT [id number] 13:15:00 [facility] OB Admission / H P REPORT#:[id number] REPORT STATUS: Signed DATE:06/10/18 TIME: 1315 PATIENT: AILYN MCCOY UNIT #: [id number] ROOM/BED: 3026-A : 90 AGE: 27 SEX: F ATTEND: Richard Bojorquez MD ADM AUTHOR: Richard Bojorquez MD * ALL edits or amendments must be made on the electronic/computer document * OB Admission H P Hx [...] 06/09-06/10 97.6-98.3 77-94 18 101-112/58-69 73.0-85.0 Physical Exam HEENT: normocephalic w/o injury Cardiac: [...] Plan Assessment/Impression: IUP 25 6/7 WEEKS, GDM UNCONTROLLED Plan: admit to observation, INSULIN WAS STARTED Consultation(s): Consultation performed: NUTRITION/DIABETES EDUCATION at 1324 RPT #:[id number] END OF REPORT [facility]
--- NOTE | 2023-09-24 11:41 | EDPHYS ---
Physician Documentation [facility] Name: Harriett Gillette Age: 32 yrs Sex: Female : 1990 Arrival Date: 09/24/2023 Time: 11:13 Bed IW2 Private MD: ED Physician Tripp Clark HPI: 09/23 11:37 This 32 yrs old Female presents to ER via Ambulatory with complaints of Covid. rn 11:37 The patient or guardian reports Runny nose and congestion. Severity of symptoms: At rn their worst the symptoms were very mild, in the emergency department the symptoms are unchanged. Modifying factors: The symptoms are alleviated by nothing, the symptoms are aggravated by nothing. Associated signs and symptoms: Pertinent positives: nausea, rhinorrhea, Pertinent negatives: fever, vomiting. The patient has experienced similar episodes in the past. Patient reports feeling sick for 2 days with nasal congestion, headache, muscle aches, fatigue. Took home COVID test and was positive. Came in for second opinion as she thought it could be false positive. Her child also has nasal congestion and his test came back positive for COVID at home.. 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 - Infectious Disease History:: Denies. - Social history:: Smoking status: Patient reports the use of cigarette tobacco products, smokes one-half pack cigarettes per day. - Family history:: not pertinent. - Hospitalizations: : No recent hospitalization is reported. ROS: 11:37 Constitutional: Negative for fever, chills, and weight loss, ENT: Positive for nasal rn congestion Cardiovascular: Negative for chest pain, palpitations, and edema, Respiratory: Negative for shortness of breath, cough, wheezing, and pleuritic chest pain, Abdomen/GI: Negative for abdominal pain, nausea, vomiting, diarrhea, and constipation, MS/Extremity: Negative for injury and deformity, Skin: Negative for injury, rash, and discoloration, Neuro: Positive for headache and generalized weakness Exam: 11:37 Constitutional: This is a well developed, well nourished patient who is awake, alert, rn and in no acute distress. Respiratory: No increased work of breathing, no retractions or nasal flaring. Speaking full sentences. Vital Signs: 11:35 BP 122 / 79; Pulse 88; Resp 18; Temp 98.4; Pulse Ox 98% ; ap3 MDM: 11:24 Patient medically screened. rn 11:37 Differential Diagnosis: Other COVID. Data reviewed: vital signs, nurses notes, and as a rn result, I will discharge patient. Counseling: I had a detailed discussion with the patient and/or guardian regarding the historical points, exam findings, and any diagnostic results supporting the discharge/admit diagnosis, the need for outpatient follow up. ED course: Patient with positive COVID test at home and son positive COVID as well. No indication for repeat testing at this time as I believe she truly does have COVID.. Administered Medications: No medications were administered Disposition Summary: 09/24/23 11:40 Discharge Ordered Notes: Location: Home rn Problem: new rn Symptoms: have improved rn Condition: Stable rn Diagnosis - SARS-associated coronavirus as the cause of diseases classified elsewhere rn Followup: rn - With: Private Physician - When: As needed - Reason: Recheck today's complaints, Re-evaluation by your physician Discharge Instructions: - Discharge Summary Sheet rn - COVID-19 rn - Viral Illness, Adult rn Forms: - Medication Reconciliation Form rn - Antibiotic rn emergency - Prescription Opioid Use rn - Patient Portal Instructions rn - Leadership Thank You Letter rn Signatures: Tripp Clark MD MD rn Prokisch, Amanda, RN RN ap3
--- NOTE | 2023-09-24 11:41 | ER ---
Nurse's Notes [facility] Name: Harriett Gillette Age: 32 yrs Sex: Female : 1990 Arrival Date: 09/24/2023 Time: 11:13 Bed IW2 Private MD: Diagnosis: SARS-associated coronavirus as the cause of diseases classified elsewhere Presentation: 09/23 11:35 Chief complaint: Patient states: she tested positive for COVID on a home test this ap3 morning, and reports runny nose low back pain. Coronavirus screen: At this time, the client does not indicate any symptoms associated with coronavirus-19. Ebola Screen: No symptoms or risks identified at this time. Initial Sepsis Screen: Does the patient meet any 2 criteria? No. Patient's initial sepsis screen is negative. Does the patient have a suspected source of infection? No. Patient's initial sepsis screen is negative. Risk Assessment: Do you want to hurt yourself or someone else? Patient reports no desire to harm self or others. Onset of symptoms is unknown. 11:35 Method Of Arrival: Ambulatory ap3 11:35 Acuity: TIFFANIE 4 ap3 Triage Assessment: 11:37 General: Appears in no apparent distress. Behavior is calm, cooperative, appropriate ap3 for age. Pain: Complains of pain in back. EENT: Reports nasal discharge. Neuro: Level of Consciousness is awake, alert, obeys commands, Oriented to person, place, time, situation, Appropriate for age. Cardiovascular: Patient's skin is warm and dry. Respiratory: Airway is patent Respiratory effort is even, unlabored, Respiratory pattern is regular, symmetrical. 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 - Infectious Disease History:: Denies. - Social history:: Smoking status: Patient reports the use of cigarette tobacco products, smokes one-half pack cigarettes per day. - Family history:: not pertinent. - Hospitalizations: : No recent hospitalization is reported. Screenin:37 [facility] ED Fall Risk Assessment (Adult) History of falling in the last 3 months, ap3 including since admission No falls in past 3 months (0 pts) Confusion or Disorientation No (0 pts) Intoxicated or Sedated No (0 pts) Impaired Gait No (0 pts) Mobility Assist Device Used No (0 pt) Altered Elimination No (0 pt) Score/Fall Risk Level 0 - 2 = Low Risk Oriented to surroundings, Maintained a safe environment, Educated pt \T\ family on fall prevention, incl call for assistance when getting out of bed, Assessed \T\ reinforced patient's understanding of fall precautions, Hourly rounding (assess needs \T\ fall precautionary measures) done, Used ambulatory aids as needed (educated on \T\ assisted with), Used gait belt as appropriate. Abuse screen: Denies threats or abuse. Nutritional screening: No deficits noted. Tuberculosis screening: No symptoms or risk factors identified. Vital Signs: 11:35 BP 122 / 79; Pulse 88; Resp 18; Temp 98.4; Pulse Ox 98% ; ap3 ED Course: 11:22 Patient arrived in ED. mg5 11:24 Tripp Clark MD is Attending Physician. rn 11:36 Triage completed. ap3 11:37 Arm band placed on left wrist. ap3 11:38 Patient has correct armband on for positive identification. ap3 11:38 No provider procedures requiring assistance completed. Patient did not have IV access ap3 during this emergency room visit. 11:58 Provided Education on: discharge instructions. ap3 Administered Medications: No medications were administered Medication: 11:38 VIS not applicable for this client. ap3 Outcome: 11:40 Discharge ordered by . rn 11:58 Discharged to home ambulatory, ap3 11:58 Condition: good 11:58 Discharge instructions given to patient, Instructed on discharge instructions, follow up and referral plans. Demonstrated understanding of instructions, follow-up care, 11:59 Patient left the ED. ap3 Signatures: Tripp Clark MD MD rn Prokisch, Amanda, RN RN ap3 [facility]
[2023-09-24 13:40] VITALS: BP 122/79; TEMP 98.4; O2SAT 98
== END 2023-09-24 11:59 | disposition home or self-care (01) ==
LOC: ER 11:13
DX: U07.1 COVID-19 (principal)

== ENCOUNTER 2024-03-22 09:06 | Emergency (ER) | payer SELFPAY ==
--- OUTSIDE RECORDS SUMMARY | 2024-03-22 09:12 | XMS REPORT | Continuity of Care Document ---
Author Name Unknown Address [address] [facility] [address] [place] [address] [facility] thconnect Address [address] [facility] [place] [address] Care Team Providers Care Transformation Manager Name Role Phone Jacob FORD, Rose Primary Care Physician Rudi Tolentino Attending Clinician Unavailable GHISLAINE SAMUEL Attending Clinician Unavailable Provider, [facility] Attending Clinician Lala Ghislaine Seaman PA-C Attending Clinician [phone] Doctor Unassigned, [place] Attending Clinician U DAKOTA Trivedi Attending Clinician Unavailab TERRANCE Ng Attending Clinician Unavailable Terrance Alicea DDS Attending Clinician [phone] Joao Babcock DO Attending Clinician Anel Cisneros Attending Clinician + ANEL METZ Attending Clinician Unavail able TERRANCE ALICEA Admitting Clinician Unavailable Terrance Alicea DDS Admitting Clinician Payers Payer Name Policy Type Policy Number Effective Date Expirati on Date Source [id number] 2018 00:00:00 Problems Condition Name Condition Details Condition Category Status Onset Date Resolution Date Last Treatment Date Treating Clinician Comments Source Type 1 diabetes mellitus without complicati on Type 1 diabetes mellitus without complicati on Disease Active 2021-02 00:00: 00 [facility] Overweight (BMI 25.0-29.9) Overweight (BMI 25.0-29.9) Disease Active 2021-02 00:00: 00 [facility] Nexplanon in place Nexplanon in place Disease Active 2021-02 00:00: 00 [facility] Submandibu lar abscess Submandibu lar abscess Disease Active 2020-02 00:00: 00 [facility] Cervical Papanicola ou smear negative within last 12 months Cervical Papanicola ou smear negative within last 12 months Disease Active - 00:00: 00 Overview: Formattin g of this note might be different from the original. NIL pap 10/2018, see scanned records [facility] Other general counseling and advice for contracept zelda management Other general counseling and advice for contracept zelda management Disease Active 3-12 00:00: 00 [facility] Abnormal glucose Abnormal glucose Disease Active -13 00:00: 00 [facility] Abnormal maternal glucose tolerance, antepartum Abnormal maternal glucose tolerance, antepartum Disease Active 12 00:00: 00 [facility] History of gestationa l diabetes History of gestationa l diabetes Disease Active 03-30 00:00: 00 [facility] History of pre-eclamp blanca in prior , currently History of pre-eclamp blanca in prior , currently Disease Active 03-30 00:00: 00 [facility] Multiparit y Multiparit y Disease Active 03-30 00:00: 00 [facility] Diet controlled gestationa l diabetes mellitus (GDM) in second trimester Diet controlled gestationa l diabetes mellitus (GDM) in second trimester Disease Active 05-27 00:00: 00 Overview: A2GDM- glybnurid e 2.5 mg Q am and [address] [facility] High risk , antepartum High risk , antepartum Disease Active 2014-02 00:00: 00 [facility] Allergies, Adverse Reactions, Alerts Allergy Name Allergy Type Status Severity Reaction(s) Onset Date Inactive Date Treating Clinician Comments Source hydrocod one Propensi ty to adverse reaction to drug Active 09-09 00:00: 00 [facility] Mon[facility] No Known Allergie s DA Active U 06-09 00:00: 00 [facility] NO KNOWN ALLERGIE S Drug Class Active [facility] Social History Social Habit Start Date Stop Date Quantity Comments Source Exposure to SARS-CoV-2 (event) 2021-12-12 00:00:00 2021-12-22 12:38:00 Not sure [facility] Tobacco use and exposure 2021-12-22 00:00:00 2021-12-22 00:00:00 Smokeless tobacco non-user [facility] Alcohol intake 2021-12-22 00:00:00 2021-12-22 00:00:00 0 /d [facility] Tobacco Comment 2021-12-22 00:00:00 2021-12-22 00:00:00 smokes 3 cigarettes per day. pt states she stopped smoking since she found out about . [facility] History of tobacco use 2014-12-22 00:00:00 Cigarette Smoker [facility] Sex Assigned At 1990 00:00:00 1990 00:00:00 [facility] Smoking Status Start Date Stop Date Source Smokes tobacco daily 2021-12-22 00:00:00 [facility] Medications Ordered Medication Name Filled Medication Name Start Date Stop Date Current Medication? Ordering Clinician Indication Dosage Frequency Signature (SIG) Comments Components Source Lantus Solostar U-100 Insulin 100 unit/mL (3 mL) subcutaneou s pen 2024-0 7-24 00:00: 00 Yes (3 mL) [facility] Monzon [...] 1 TABLET 3 TIMES DAILY WITH MEALS. 2023-1 0-14 00:00: 00 06-16 00:00 :00 No 850 [facility] Mon[facility] etonogestre L (NEXPLANON) implant 68 mg 2021-02 19:15: 00 12-22 18:35 :00 No [id number] 68mg [facility] insulin degludec (TRESIBA U-100 INSULIN SC) 2021-02 12:59: 59 Yes inject under the skin. [facility] dapaglifloz in-metformi n (XIGDUO XR) 10-1,000 mg TBph 2021-02 12:40: 33 Yes Xigduo XR 10 mg-1,000 mg tablet,ext ended release Take 1 tablet every day by oral route for [address] [facility] cephALEXin (KEFLEX) 500 mg capsule 2021-02 00:00: 00 12-30 05:59 :00 No [id number] 500mg Take 1 capsule by mouth 4 (four) times daily for [address] [facility] TAKE ONE (1) TABLET(S) BY MOUTH IN THE MORNING. 10-18 00:00: 00 Yes [facility] Monzon Dose Unknown 06-07 00:00: 00 Yes [facility] Dose Unknown - 00:00: 00 Yes [facility] Dose Unknown 06-07 00:00: 00 Yes [facility] Dose Unknown 06-07 00:00: 00 Yes [facility] dapaglifloz in-metformi n (XIGDUO XR) 10-1,000 mg TBph 2020-02 05:25: 03 Yes Xigduo XR 10 mg-1,000 mg tablet,ext ended release Take 1 tablet every day by oral route for [address] [facility] dapaglifloz in-metformi n (XIGDUO XR) 10-1,000 mg TBph 2020-02 17:25: 56 Yes Xigduo XR 10 mg-1,000 mg tablet,ext ended release Take 1 tablet every day by oral route for [address] [facility] chlorhexidi ne (PERIDEX) 0.12 % mouthwash 15 mL 2020-02 14:00: 00 Yes 15mL 15 mL, Oral (Swish And Spit Out), BID, First dose on Fri12/24/20 at 0800, Until Discontinu ed, Routine [facility] Sliding Scale Insulin - Lispro (HumaLOG) + Fsbg Testing 2020-02 14:00: 00 Yes Subcutaneo us, TID MEALS+HS, First dose on Fri12/24/20 at 0800, Until Discontinu ed, Routine [facility] lactated ringers IV infusion 1,000 mL 2020-02 07:30: 00 Yes 1000mL at 50 mL/hr, 1,000 mL, IV Infusion, CONTINUOUS , Starting on Fri12/24/20 at 0130, Until Discontinu ed, Routine [facility] naloxone (NARCAN) injection 0.1 mg 2020-02 07:21: 11 Yes .1mg 0.1 mg, Slow IV Push, PRN - SEE INSTRUCTIO NS, Starting on Fri12/24/20 at 0121, Until Discontinu ed, Routine, Sedation/R espiratory Depression , See admin instructio ns. [facility] morpHINE injection 2 mg 2020-02 07:21: 11 12-26 07:20 :11 No 2mg 2 mg, Slow IV Push, Q3HPRN, Starting on Fri12/24/20 at 0121, Until Fri12/26/20 at 0120, Routine, Pain (scale 7-10) [facility] HYDROcodone -acetaminop hen (NORCO 5) 5-325 mg tablet 1 tablet 2020-02 07:21: 10 Yes 1{tbl} 1 tablet, Oral, Q6HPRN, Starting on Fri12/24/20 at 0121, Until Discontinu ed, Routine, Pain (scale 4-6) [facility] ibuprofen (ADVIL CHILDREN'S) 100 mg/5 mL oral suspension 600 mg 2020-02 07:21: 04 Yes 600mg 600 mg, Oral, Q6HPRN, Starting on Fri12/24/20 at 0121, Until Discontinu ed, Routine, Pain (scale 1-3) [facility] ondansetron (ZOFRAN (PF)) injection 4 mg 2020-02 07:20: 54 Yes 4mg 4 mg, Slow IV Push, Q4HPRN, Starting on 12/24/20 at 0120, Until Discontinu ed, Routine, Nausea and Vomiting (N/V) [facility] chlorhexidi ne 0.12 % mouthwash 2020-02 00:00: 00 12-22 00:00 :00 No [id number] 15mL Swish and spit out 15 mL 2 (two) times daily. [facility] ibuprofen 100 mg/5 mL oral suspension 2020-02 00:00: 00 12-22 00:00 :00 No [id number] 600mg Take 30 mL by mouth every 6 (six) hours as needed for Pain (scale 1-3). [facility] HYDROcodone -acetaminop hen 5-325 mg tablet 2020-02 00:00: 00 01-01 05:59 :00 No [id number] 1{tbl} Take 1 tablet by mouth every 6 (six) hours as needed for Pain (scale 4-6) for up to 7 days. Indication s: acute pain [facility] amoxicillin -clavulanat e (AUGMENTIN) 875-125 mg per tablet 2020-02 00:00: 00 01-01 05:59 :00 No [id number] 1{tbl} Take 1 tablet by mouth 2 (two) times daily for [address] [facility] Dose Unknown 2019-02 00:00: 00 Yes [facility] Dose Unknown 2019-02 00:00: 00 Yes [facility] glipizide 10 mg tablet 2019-02 00:00: 00 Yes 1mg [facility] Dose Unknown 6-09 00:00: 00 Yes [facility] Dose Unknown - 00:00: 00 Yes [facility] Mon[facility] Dose Unknown 20 00:00: 00 Yes [facility] Levemir FlexTouch U-100 Insulin 100 unit/mL (3 mL) subcutaneou s pen 02-25 00:00: 00 Yes 12(3 mL) [facility] Dose Unknown 02-25 00:00: 00 Yes [facility] Monzon Dose Unknown 02-25 00:00: 00 Yes [facility] Monzon glipizide 5 mg tablet 02-25 00:00: 00 Yes 1mg [facility] Blood-Gluco se Meter (FREESTYLE LITE METER) Kit 04-06 00:00: 00 Yes [id number] Use as directed [facility] lancets 17 gauge Misc 04-06 00:00: 00 Yes [id number] Use as directed [facility] blood sugar diagnostic (FREESTYLE LITE STRIPS) strip 04-06 00:00: 00 12-22 00:00 :00 No [id number] Use as directed [facility] vit 33-iron-fol ic-dha (SELECT-OB + DHA) 29 mg iron-1 mg -250 mg combo pack 03-31 00:00: 00 12-22 00:00 :00 No [id number] 1{packe t} Take 1 Packet by mouth daily. [facility] Vital Signs Vital Name Observation Time Observation Value Comments S ource Systolic blood pressure 2021-12-22 17:38:00 119 mm[Hg] [facility] Diastolic blood pressure 2021-12-22 17:38:00 77 mm[Hg] [facility] Heart rate 2021-12-22 17:38:00 76 /min [facility] Body temperature 2021-12-22 17:38:00 35.83 [place] [facility] Respiratory rate 2021-12-22 17:38:00 18 /min [facility] Body height 2021-12-22 17:38:00 154.9 cm [facility] Body weight 2021-12-22 17:38:00 60.51 kg [facility] BMI 2021-12-22 17:38:00 25.21 kg/m2 [facility] Systolic blood pressure 2020-12-24 17:05:00 125 mm[Hg] [facility] Diastolic blood pressure 2020-12-24 17:05:00 87 mm[Hg] [facility] Heart rate 2020-12-24 17:05:00 91 /min [facility] Body temperature 2020-12-24 17:05:00 36.22 [place] [facility] Respiratory rate 2020-12-24 17:05:00 18 /min [facility] Oxygen saturation in Arterial blood by Pulse oximetry 2020-12-24 17:05:00 98 /min [facility] Body weight 2020-12-24 06:32:00 68.04 kg [facility] acute [facility] BMI 2020-12-24 06:32:00 28.34 kg/m2 [facility] Systolic blood pressure 2020-04-28 16:31:00 106 mm[Hg] [facility] Diastolic blood pressure 2020-04-28 16:31:00 73 mm[Hg] [facility] Heart rate 2020-04-28 16:31:00 77 /min [facility] Body temperature 2020-04-28 16:31:00 36.72 [place] [facility] Respiratory rate 2020-04-28 16:31:00 16 /min [facility] Body height 2020-04-28 16:31:00 154.9 cm [facility] Body weight 2020-04-28 16:31:00 59.081 kg [facility] acute hospital BMI 2020-04-28 16:31:00 24.61 kg/m2 [facility] Systolic blood pressure 2020-04-28 16:31:00 106 mm[Hg] [facility] Diastolic blood pressure 2020-04-28 16:31:00 73 mm[Hg] [facility] Heart rate 2020-04-28 16:31:00 77 /min [facility] Body temperature 2020-04-28 16:31:00 36.72 [place] [facility] Respiratory rate 2020-04-28 16:31:00 16 /min [facility] Body height 2020-04-28 16:31:00 154.9 cm [facility] Body weight 2020-04-28 16:31:00 59.081 kg [facility] BMI 2020-04-28 16:31:00 24.61 kg/m2 [facility] BP Diastolic 2023-09-10 11:07:00 86 mm[Hg] Santhosh [...] Source POCT TEST 2021-12-22 17:49:00 Glenda Samuelasha [facility] GARDASIL 9 (HPV 9V) VACCINE 2021-12-22 17:48:52 Glenda Samuelasha [facility] ASSIGNMENT OF BENEFITS 2021-12-22 17:24:31 Docgertrude r Unassigned, [place] [facility] EXTERNAL PROVIDER RECORDS 2021-01-02 06:01:00 Doctor Unassigned, [place] [facility] POCT GLUCOSE (AUTOMATED) 2020-12-24 14:10:00 Terrance Alicea [facility] ASSIGNMENT OF BENEFITS 2020-04-28 17:41:20 Docgertrude r Unassigned, [place] [facility] FLU VACC ([id number]), 6+ MONTHS, IM, QUAD 2020-04-28 17:21:26 Anel Metz [facility] Encounters Start Date/Time End Date/Time Encounter Type Admission Type Attending Clinicians Care Facility Care Department Encounter ID Source 2023-10-22 00:00:00 2023-10-22 00:00:00 Outpatient Rudi Tolentino Kalyani W [id number] [facility] 2023-09-15 09:57:31 2023-09-15 09:57:31 Outpatient SFA SFA [id number] [facility] Monzon 2023-09-10 10:58:00 2023-09-10 10:58:00 Outpatient SFA SFA [id number] [facility] Monzon 2023-09-10 00:00:00 2023-09-10 00:00:00 Outpatient Visit SFA [id number] [facility] Monzon 2023-06-17 00:00:00 2023-06-17 00:00:00 Outpatient Visit SFA [id number] Ed[facility] Monzon 2023-04-18 08:56:19 2023-04-18 08:56:19 Outpatient SFA SFA [id number] Edouard Monzon 2023-04-15 15:40:19 2023-04-15 15:40:[address] [facility] [id number] Edouard Monzon 2023-02-24 13:34:59 2023-02-24 13:34:[address] [facility] [id number] Eduoard Monzon 2022-12-13 10:21:56 2022-12-13 10:21:[address] [facility] [id number] Edouard Monzon 2022-11-30 12:58:22 2022-11-30 12:58:[address] [facility] [id number] Edouard Batista Nicolás 2021-12-22 12:45:00 2021-12-22 13:22:01 Outpatient GHISLAINE GAMBOA [facility] [id number] [facility] 2021-12-22 12:45:00 2021-12-22 13:22:01 Office Visit Provider, MagalieRmchp Ghislaine Swenson [facility] SUPERVISOR DENTURE DEPARTMENT [facility] 1.840.114 [id number] [id number] [facility] 2021-12-22 00:00:00 2021-12-22 00:00:00 Orders Only Doctor Unassigned, [place] [facility] 1.840.114 350.1.13.10 4.2.7.2.[id number] [facility] 2021-01-02 00:00:00 2021-01-02 00:00:00 Orders Only Doctor Unassigned, [place] [facility] 1.2840.114 350.1.13.10 4.2.7.2.[id number] [facility] 2020 14:00:00 2020 14:00:00 Outpatient R DARRELL [facility] [id number] [facility] 2020-12-26 16:30:00 2020-12-26 16:30:00 Outpatient R DARRELL [facility] [id number] [facility] 2020-12-24 01:34:00 2020-12-24 17:25:00 Outpatient X DARRELL [facility] [id number] [facility] 2020-12-24 01:34:00 2020-12-24 17:25:00 [facility] 1.840.114 350.1.13.10 4.2.7.2.[id number] [facility] 2020-05-09 00:00:00 2020-05-09 00:00:00 Patient Outreach Joao Babcock [facility] 1.2840.114 350.1.13.10 4.2.7.2.686 [id number] 2020-05-09 00:00:00 2020-05-09 00:00:00 Patient Outreach Joao Babcock [facility] 1.2840.114 350.1.13.10 4.2.7.2.[id number] [facility] 2020-04-28 10:17:04 2020-04-28 11:41:16 Office Visit Anel Metz [facility] SUPER[employer] DENTURE DEPARTMENT [facility] 1.2840.114 350.1.13.10 4.2.7.2.[id number] [facility] 2020-04-28 10:17:04 2020-04-28 11:41:16 Office Visit Anel Metz Nilda [facility] SUPERVISOR DENTURE DEPARTMENT [facility] [id number] 350.1.13.10 [id number] [id number] 2020-04-28 10:15:00 2020-04-28 10:15:00 Outpatient R ANEL METZ [facility] [id number] [facility] 2020-04-28 00:00:00 2020-04-28 00:00:00 Orders Only Doctor Unassigned, [place] [facility] 1..840.114 350.1.13.10 4.2.7.2.[id number] [facility] Results Test Description Test Time Test Comments Results Result Co mments Source LIPID [id number] 05:04:06* Test Item Value Reference Range Interpretation [...] SPECIMENS. FOR MOREINFORMATION, SEE CLIENT ANNOUNCEMENT AT [email or web address] CalcLDL-C RISK RATIO LDL/HDL (test code = 2238) (NOTE) RATIO <3.22 UNABLE TO RADHA CULATE COMPREHENSIVE METABOLIC [id number] 05:04:06* Test Item Value Reference Range Interpretation Comme nts GLUCOSE (test code = 2217) 372 MG/DL 70-99 H BUN (test code = 2207) 14 MG/DL 6-20 CREATININE (test code = 2213) 0.69 MG/DL 0.60-1.30 eGFR (2020 CKD-EPI) (test code = ) 118 ML/MIN/1.73 >60 CALC BUN/CREAT (test code [...] 2218) 15 U/L 5-40 ALBUMIN/CREATININE RATIO, URINE, [id number] 04:18:31* Test Item Value Reference Range Interpretation Comme nts CREATININE, URINE, CONC. (test code = 207) 30.4 MG/DL NOT ESTAB ALBUMIN, URINE, RANDOM (test code = 15686) 2.4 MG/DL NOT ESTAB CALC ALBUMIN/CREAT, RND (test code = 73484) 79 MG/G <30 H Note: Albumin/Cr eatinine ratio reference interval reflects ADA and NKF guidelines. UNLESS OTHERWISE INDICATED, ALL TESTING PERFORMED AT [facility] [address] [place] [address] [employer] ANCHOR: FRANCO UGARTE M.D. CLIA NUMBER [id number] [facility] [place]. [id number] HEMOGLOBIN [id number] 00:00:00* Test Item Value Reference Range Interpretation Comme ritchie HEMOGLOBIN A1c (test code = 50099) 12.8 % Edouard MonzonLIPID [id number] 00:00:00* Test Item Value Reference Range Interpretation Comme nts CHOLESTEROL (test code = 2210) 261 MG/DL TRIGLYCERIDES (test code = 2232) 657 MG/DL HDL CHOLESTEROL (test code = 2220) 47 MG/DL CALC LDL CHOL (test code = 2237) (NOTE) MG/DL RISK RATIO LDL/HDL (test cod e = 2238) (NOTE) RATIO Edouard MonzonCOMPREHENSIVE METABOLIC [id number] 00:00:00* Test Item Value Reference Range Interpretation Comme nts GLUCOSE (test code = 2217) 372 MG/DL BUN (test code = 2208) 14 MG/DL CREATININE (test code = 2214) 0.69 MG/DL eGFR (2020 CKD-EPI) (test code = 44185) 118 ML/MIN/1.73 CALC BUN/CREAT (test code = [...] 2219) 15 U/L Edouard MonzonALBUMIN/CREATININE RATIO, RANDOM [id number] 00:00:00* Test Item Value Reference Range Interpretation Comme nts CREATININE, URINE, CONC. (te st code = 2072) 30.4 MG/DL ALBUMIN, URINE, RANDOM (test code = 29341) 2.4 MG/DL CALC ALBUMIN/CREAT, RND (kelsie t code = 44473) 79 MG/G Edouard MonzonHEMOGLOBIN [id number] 00:00:00* Test Item Value Reference Range Interpretation Comme ritchie HEMOGLOBIN A1c (test code = 50395) 12.8 % Edouard MonzonLIPID [id number] 00:00:00* Test Item Value Reference Range Interpretation Comme nts CHOLESTEROL (test code = 2210) 261 MG/DL TRIGLYCERIDES (test code = 2232) 657 MG/DL HDL CHOLESTEROL (test code = 2220) 47 MG/DL CALC LDL CHOL (test code = 2237) (NOTE) MG/DL RISK RATIO LDL/HDL (test cod e = 2238) (NOTE) RATIO Edouard MonznoCOMPREHENSIVE METABOLIC [id number] 00:00:00* Test Item Value Reference Range Interpretation Comme nts GLUCOSE (test code = 2217) 372 MG/DL BUN (test code = 2208) 14 MG/DL CREATININE (test code = 2214) 0.69 MG/DL eGFR (2020 CKD-EPI) (test code = 86508) 118 ML/MIN/1.73 CALC BUN/CREAT (test code = [...] 15 U/L Edouard Batista AustinALBUMIN/CREATININE RATIO, RANDOM [id number] 00:00:00* Test Item Value Reference Range Interpretation Comme nts CREATININE, URINE, CONC. (te st code = 2072) 30.4 MG/DL ALBUMIN, URINE, RANDOM (test code = 27997) 2.4 MG/DL CALC ALBUMIN/CREAT, RND (kelsie t code = 85988) 79 MG/G Edouard Batista AustinLIPID [id number] 03:43:12* Test Item Value Reference Range Interpretation [...] SPECIMENS. FOR MOREINFORMATION, SEE CLIENT ANNOUNCEMENT AT [email or web address] RISK RATIO LDL/HDL (test code = 2238) 2.94 RATIO <3.22 COMPREHENSIVE METABOLIC [id number] 03:43:12* Test Item Value Reference Range Interpretation Comme nts GLUCOSE (test code = 2217) 507 MG/DL 70-99 HH RESULTS RECHECKE D AND VERIFIED BUN (test code = 2207) 13 MG/DL 6-20 CREATININE (test code = 2214) 0.80 MG/DL 0.60-1.30 eGFR (2020 CKD-EPI) (test code = 26615) 101 ML/MIN/1.73 >60 CALC BUN/CREAT (test code = 2235) 16 RATIO 6-28 SODIUM (test code = 223) 133 MEQ/L 133-146 POTASSIUM (test code = 2228) 4.5 MEQ/L 3.5-5.4 CHLORIDE (test code = 2215) 97 MEQ/L 95-107 CARBON DIOXIDE (test code = 2206) 22 MEQ/L 19-31 CALCIUM (test code = 9) 10.2 MG/DL 8.5-10.5 PROTEIN, TOTAL (test code = 2228) 7.6 G/DL 6.1-8.3 ALBUMIN (test code = 2200) 4.6 G/DL 3.5-5.2 CALC GLOBULIN (test code = 224) 3.0 G/DL 1.9-3.7 CALC A/G RATIO (test code = 2234) 1.5 RATIO 1.0-2.6 BILIRUBIN, TOTAL (test code = 2207) 0.3 MG/DL <=1.2 ALKALINE PHOSPHATASE (test code = 2204) 96 U/L 40-114 AST (test code = 2218) 11 U/L 9-40 ALT (test code = 2219) 13 U/L 5-40 UNLESS OTHERWISE INDICATED, ALL TESTING PERFORMED AT [facility] [address] [place] [address] [employer] ANCHOR: FRANCO UGARTE M.D. CLIA NUMBER [id number] [facility] [place]. [id number] LIPID [id number] 00:00:00* Test Item Value Reference Range Interpretation Comme nts CHOLESTEROL (test code = 2210) 294 MG/DL TRIGLYCERIDES (test code = 2232) 280 MG/DL HDL CHOLESTEROL (test code = 2220) 62 MG/DL CALC LDL CHOL (test code = 2237) 182 MG/DL RISK RATIO LDL/HDL (test cod e = 2238) 2.94 RATIO Edouard MonzonCOMPREHENSIVE METABOLIC [id number] 00:00:00* Test Item Value Reference Range Interpretation Comme nts GLUCOSE (test code = 2217) 507 MG/DL BUN (test code = 2208) 13 MG/DL CREATININE (test code = 2214) 0.80 MG/DL eGFR (2020 CKD-EPI) (test code = 28279) 101 ML/MIN/1.73 CALC BUN/CREAT (test code = [...] code = 2219) 13 U/L Edouard MonzonLIPID [id number] 00:00:00* Test Item Value Reference Range Interpretation Comme nts CHOLESTEROL (test code = 2210) 294 MG/DL TRIGLYCERIDES (test code = 2232) 280 MG/DL HDL CHOLESTEROL (test code = 2220) 62 MG/DL CALC LDL CHOL (test code = 2237) 182 MG/DL RISK RATIO LDL/HDL (test cod e = 2238) 2.94 RATIO Edouard MonzonCOMPREHENSIVE METABOLIC [id number] 00:00:00* Test Item Value Reference Range Interpretation Comme nts GLUCOSE (test code = 2217) 507 MG/DL BUN (test code = 2208) 13 MG/DL CREATININE (test code = 2214) 0.80 MG/DL eGFR (2020 CKD-EPI) (test code = 43576) 101 ML/MIN/1.73 CALC BUN/CREAT (test code = [...] code = 2219) 13 U/L Edouard MonzonHEMOGLOBIN [id number] 02:28:23* Test Item Value Reference Range Interpretation Comme nts HEMOGLOBIN A1c (test code = 96826) 12.9 % 4.2-5.6 H [employer] GUIDELINES FOR HGB A1C: [...] CONSIDER ALTERNATE TESTING OR LABORATORY CONSULTATION. HEMOGLOBIN [id number] 00:00:00* Test Item Value Reference Range Interpretation Comme [facility] HEMOGLOBIN A1c (test code = 15383) 12.9 % Edouard Batista AustinHEMOGLOBIN [id number] 00:00:00* Test Item Value Reference Range Interpretation Comme nts HEMOGLOBIN A1c (test code = 79295) 12.9 % Edouard Batista AustinPOCT [id number] 17:50:00* Test Item Value Reference Range Interpretation Comme nts POCT PREG (test code = 1605) Negative On board controls acceptable with C Line (test code = 3574) Yes POCT PREG LOT # (test code = 3575) POCT PREG TEST DATE ( test code = 3576) [facility] [id number] 17:50:00* Test Item Value Reference Range Interpretation Comme nts POCT PREG (test code = 1605) Negative On board controls acceptable with C Line (test code = 3574) Yes POCT PREG LOT # (test code = 3575) POCT PREG TEST DATE ( test code = 3576) [facility]-PCR/[id number] 17:22:59* Test Item Value Reference Range Interpretation Comments SARS-CoV-2 INTERPRETATION (test code = 71007) NEGATIVE SEE NOTE SARS-CoV-2 R NA NOT [...] prevalence is high. SOURCE (test code = 57545) NASOPHARYNGEAL Note: Methodolog y is Juliana Leeann Real-Time RT-PCR. The expected result or reference range is NEGATIVE (Not Detected). For more information regarding COVID-19 testing to include clinicalinformation, methodology detail, intended use, FDA authorization andrecommended fact sheets for patients or healthcare providers, see [facility] Announcement: SARS-CoV-2 (COVID-19) by NAAT at URL below (note,fact sheets are provided by method given in report:[email or web address] Alternatively, see downloadable PDF fact sheet at:[email or web address] UNLESS OTHERWISE INDICATED, ALL TESTING PERFORMED [facility]ESOTASensorTran PATHOLOGY [employer], [facility]. [address] [place] [address] RADIO NEWS ANCHOR: ERICK NEAL M.D. [place] NUMBER [id number] [facility] [place]. [id number] SARS-CoV-2 (COVID-19) by RT-PCR (HIGH RISK)2021-02-25 00:00:00* Test Item Value Reference Range Interpretation Comme nts SARS-CoV-2 INTERPRETATION (test code = 11037) NEGATIVE SOURCE (test code = 01955) NASOPHARYNGEAL Edouard Batista [id number]-[id number] (COVID-19) by RT-PCR (HIGH RISK)2021-02-25 00:00:00* Test Item Value Reference Range Interpretation Comme nts SARS-CoV-2 INTERPRETATION (test code = 24503) NEGATIVE SOURCE (test code = 75668) NASOPHARYNGEAL Edouard Batista AustinPOCT GLUCOSE (AUTOMATED)2020-12-24 14:12:21* Test Item Value Reference Range Interpretation Comme nts POCT GLU (test code = 7040280577) 212 mg/dL 70-110 H Lab Interpretation (test cod e = 52879-2) [facility]normal [facility] by RT-PCR (HIGH RISK) 2020-03-05 00:00:00* Test Item Value Reference Range Interpretation Comme nts SARS-CoV-2 INTERPRETATION (t est code = 37696) NEGATIVE SOURCE (test code = 77430) NOT SPECIFIED Edouard Batista [id number] (COVID-19) by RT-PCR (HIGH RISK)2020-03-05 00:00:00* Test Item Value Reference Range Interpretation Comme nts SARS-CoV-2 INTERPRETATION (t est code = 31346) NEGATIVE SOURCE (test code = 31592) NOT SPECIFIED Edouard MonzonHEMOGLOBIN [id number] 00:00:00* Test Item Value Reference Range Interpretation Comme ritchie HEMOGLOBIN A1c (test code = 27443) 10.2 % Edouard Batista AustinHEMOGLOBIN [id number] 00:00:00* Test Item Value Reference Range Interpretation Comme ritchie HEMOGLOBIN A1c (test code = 19495) 10.2 % Edouard MonzonCBC W/AUTO [id number] 00:00:00* Test Item Value Reference Range Interpretation [...] = 1015) 389 K/UL Edouard MonzonCOMPREHENSIVE METABOLIC [id number] 00:00:00* Test Item Value Reference Range Interpretation Comme nts GLUCOSE (test code = 2217) 317 MG/DL BUN (test code = 2208) 12 MG/DL CREATININE (test code = 2214) 0.78 MG/DL eGFR AMER. (test cod e = 10326) 120 ML/MIN/1.73 eGFR NON- AMER. (test code = 74750) 103 ML/MIN/1.73 CALC BUN/CREAT (test code = [...] code = 2219) 10 U/L Edouard MonzonHEMOGLOBIN [id number] 00:00:00* Test Item Value Reference Range Interpretation Comme nts HEMOGLOBIN A1c (test code = 94820) 10.7 % Edouard MonzonLIPID [id number] 00:00:00* Test Item Value Reference Range Interpretation Comme nts CHOLESTEROL (test code = 2210) 250 MG/DL TRIGLYCERIDES (test code = 2232) 336 MG/DL HDL CHOLESTEROL (test code = 2220) 43 MG/DL CALC LDL CHOL (test code = 2237) 155 MG/DL RISK RATIO LDL/HDL (test cod e = 2238) 3.60 RATIO Edouard Batista NicolásCBC W/AUTO [id number] 00:00:00* Test Item Value Reference Range Interpretation [...] = 1015) 389 K/UL Edouard MonzonCOMPREHENSIVE METABOLIC [id number] 00:00:00* Test Item Value Reference Range Interpretation Comme nts GLUCOSE (test code = 2217) 317 MG/DL BUN (test code = 2208) 12 MG/DL CREATININE (test code = 2214) 0.78 MG/DL eGFR AMER. (test cod e = 99085) 120 ML/MIN/1.73 eGFR NON- AMER. (test code = 53861) 103 ML/MIN/1.73 CALC BUN/CREAT (test code = [...] code = 2219) 10 U/L Edouard MonzonHEMOGLOBIN [id number] 00:00:00* Test Item Value Reference Range Interpretation Comme ritchie HEMOGLOBIN A1c (test code = 90106) 10.7 % Edouard MonzonLIPID [id number] 00:00:00* Test Item Value Reference Range Interpretation Comme nts CHOLESTEROL (test code = 2210) 250 MG/DL TRIGLYCERIDES (test code = 2232) 336 MG/DL HDL CHOLESTEROL (test code = 2220) 43 MG/DL CALC LDL CHOL (test code = 2237) 155 MG/DL RISK RATIO LDL/HDL (test cod e = 2238) 3.60 RATIO Edouard [id number] 15:58:00* Test Item Value Reference Range Interpretation Comme nts GLUBED (test code = GLUBED) 148 mg/dL 65-110 H [id number] 10:51:00* Test Item Value Reference Range Interpretation Comme nts GLUBED (test code = GLUBED) 174 mg/dL 65-110 H [id number] 06:04:00* Test Item Value Reference Range Interpretation Comme nts GLUBED (test code = GLUBED) 83 mg/dL 65-110 N GLYCOSYLATED HEMOGLOBIN [id number] 04:40:00* Test Item Value Reference Range Interpretation [...] MBG) 189 MG/DL 70-110 H COMPREHENSIVE METABOLIC [id number] 04:40:00* Test Item Value Reference Range Interpretation [...] as fructosamineshould be considered for these patients. [id number] 00:14:00* Test Item Value Reference Range Interpretation Comme nts GLUBED (test code = GLUBED) 194 mg/dL 65-110 H COMPREHENSIVE METABOLIC [id number] 21:06:00* Test Item Value Reference Range Interpretation [...] C) (test code = GLYHGB) CBC W/AUTO [id number] 20:53:00* Test Item Value Reference Range Interpretation [...] (test code = PLTMR) NORMAL NORMAL URINALYSIS [id number] 20:08:00* Test Item Value Reference Range Interpretation [...] #/hpf NONE SEEN A URINE SAMPLE: CLEAN [id number] 20:01:00* Test Item Value Reference Range Interpretation Comme nts GLUBED (test code = GLUBED) 196 mg/dL 65-110 H URINALYSIS [id number] 19:53:00* Test Item Value Reference Range Interpretation [...]
[2024-03-22 10:11] LABS: SARS-CoV-2 Antigen CONTROL BLUE LINE VIS/BG OK; SARS-CoV-2 Antigen Rapid Res Negative (Negative)
--- NOTE | 2024-03-22 10:46 | EDPHYS ---
Physician Documentation [facility] Name: Harriett Gillette Age: 33 yrs Sex: Female : 1990 Arrival Date: 03/22/2024 Time: 09:06 Bed IW9 Private MD: ED Physician Martin Baker HPI: 03/22 09:37 This 33 yrs old Female presents to ER via Unassigned with complaints of Flu ec2 Symptoms. 09:37 Patient arrives today for evaluation of cough and cold symptoms onset of 2 days. ec2 Patient with cough and congestion as well as sore throat. No vomiting, no diarrhea.. 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 - Infectious Disease History:: Denies. - Social history:: Smoking status: Patient denies any tobacco usage or history of. ROS: 09:37 Constitutional: as per hpi ec2 Exam: 09:37 Constitutional: GEN: NAD Head: atraumatic Eyes: EOMI Ears: External ears are ec2 normal. CV: regular rate LUNGS: no respiratory distress ABD: non-distended SKIN: no evidence of rashes MSK: no evidence of trauma Vital Signs: 09:48 BP 115 / 80; Pulse 89; Resp 17; Temp 98.6; Pulse Ox 99% ; Weight 68.04 kg; Height 5 ft. jl7 0 in. ; 09:48 Body Mass Index 29.29 (68.04 kg, 152.4 cm) jl7 MDM: 09:38 Data reviewed:. Data reviewed: vital signs, nurses notes. ED course: Patient arrives ec2 today for upper respiratory symptoms. Examination is unrevealing. Will obtain viral swabs. Suspect viral infection. Doubt pneumonia given lack of focal lung sounds on reassuring cardiopulmonary examination. Additionally considered strep pharyngitis.. 09:54 Medical Screening Exam initiated ec2 10:44 ED course: Viral swabs and strep swab negative. Will discharge home. Return precautions ec2 given.. 03/22 09:27 Order name: Strep [facility] 03/22 09:27 Order name: Flu; Complete Time: 10:44 [facility] 03/22 09:27 Order name: SARS RAPID; Complete Time: 10:12 [facility] 03/22 10:14 Order name: Throat Culture EDMS Administered Medications: No medications were administered Disposition Summary: 03/22/24 10:45 Discharge Ordered Notes: Location: Home ec2 Condition: Stable ec2 Diagnosis - Viral infection, unspecified ec2 Followup: ec2 - With: Private Physician - When: - Reason: Recheck today's complaints Discharge Instructions: - Discharge Summary Sheet ec2 - Viral Illness, Adult ec2 Forms: - Work release form kb3 - Medication Reconciliation Form ec2 - Antibiotic Education ec2 - Prescription Opioid Use ec2 - Patient Portal Instructions ec2 - Leadership Thank You Letter ec2 Prescriptions: - Tessalon Perles 100 mg Oral Capsule - take 1 capsule ORAL route every 8 hours As needed; 15 capsule; Refills: 0, ec2 Product Selection Permitted Signatures: Dispatcher [employer] Lisette Adams RN RN jl7 Martin Baker MD MD ec2
--- NOTE | 2024-03-22 10:46 | ER ---
Nurse's Notes [facility] Name: Harriett Gillette Age: 33 yrs Sex: Female : 1990 Arrival Date: 03/22/2024 Time: 09:06 Bed IW9 Private MD: Diagnosis: Viral infection, unspecified Presentation: 03/22 09:48 Chief complaint: Patient states: Sneezing, cough x2 days, denies fever. Coronavirus jl7 screen: Client presents with at least one sign or symptom that may indicate coronavirus-19. Ebola Screen: No symptoms or risks identified at this time. Initial Sepsis Screen: Does the patient meet any 2 criteria? No. Patient's initial sepsis screen is negative. Does the patient have a suspected source of infection? No. Patient's initial sepsis screen is negative. Risk Assessment: Do you want to hurt yourself or someone else? Patient reports no desire to harm self or others. Onset of symptoms was March 20, 2024. 09:48 Method Of Arrival: Ambulatory jl 09:48 Acuity: TIFFANIE 4 jl7 Triage Assessment: 09:49 General: Appears in no apparent distress. uncomfortable, Behavior is calm, cooperative, jl7 appropriate for age. Pain: Denies pain. 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 - Infectious Disease History:: Denies. - Social history:: Smoking status: Patient denies any tobacco usage or history of. Screenin:50 [facility] ED Fall Risk Assessment (Adult) History of falling in the last 3 months, kb3 including since admission No falls in past 3 months (0 pts) Confusion or Disorientation No (0 pts) Intoxicated or Sedated No (0 pts) Impaired Gait No (0 pts) Mobility Assist Device Used No (0 pt) Altered Elimination No (0 pt) Score/Fall Risk Level 0 - 2 = Low Risk Oriented to surroundings. Abuse screen: Denies threats or abuse. Denies injuries from another. Nutritional screening: No deficits noted. Tuberculosis screening: No symptoms or risk factors identified. Assessment: 10:50 Reassessment: Patient appears in no apparent distress at this time. No changes from kb3 previously documented assessment. General: Appears in no apparent distress. ill, Behavior is calm, cooperative. 10:50 Respiratory: Reports cough that is productive, Breath sounds are clear bilaterally. kb3 EENT: Reports nasal congestion nasal discharge. Vital Signs: 09:48 BP 115 / 80; Pulse 89; Resp 17; Temp 98.6; Pulse Ox 99% ; Weight 68.04 kg; Height 5 ft. jl7 0 in. ; 09:48 Body Mass Index 29.29 (68.04 kg, 152.4 cm) 7 ED Course: 09:11 Patient arrived in ED. im 09:22 Martin Baker MD is Attending Physician. ec2 09:49 Triage completed. jl7 09:49 Arm band placed on right wrist. Patient placed in waiting room, Patient notified of 7 wait time. 09:52 COVID swab sent to lab. Flu and/or RSV swab sent to lab. Strep swab sent to lab. jl7 10:50 Patient has correct armband on for positive identification. Provided Education on: OTC kb3 meds for symptom management, Follow up, rest, increased oral fluids. 10:50 Patient did not have IV access during this emergency room visit. kb3 Administered Medications: No medications were administered Medication: 10:50 VIS not applicable for this client. kb3 Outcome: 10:45 Discharge ordered by . ec2 10:50 Discharged to home ambulatory, kb3 10:50 Condition: stable 10:50 Discharge instructions given to patient, Instructed on discharge instructions, follow up and referral plans. medication usage, Demonstrated understanding of instructions, follow-up care, medications, Prescriptions given X 1, 11:10 Patient left the ED. kb3 Signatures: Lisette Osman RN RN jl7 Celestina Tomlin RN RN kb3 Sara Billingsley Martin Baker MD MD ec2
[2024-03-22 11:32] VITALS: BP 115/80; TEMP 98.6; O2SAT 99
== END 2024-03-22 11:10 | disposition home or self-care (01) ==
LOC: ER 09:06
DX: B34.9 Viral infection, unspecified (principal); Z11.52 Encounter for screening for COVID-19
CPT/HCPCS: 36415; 87070; 87081; 87804; 87811; 99283

== ENCOUNTER 2024-04-02 20:35 | Emergency (ER) | payer OTHER ==
--- OUTSIDE RECORDS SUMMARY | 2024-04-02 20:39 | XMS REPORT | Continuity of Care Document ---
Author Name Unknown Address [address] [facility] [address]. [address] [place] [address] [facility] thconnect Address [address] [facility] [address] [place] [address] Care Team Providers Care Grounding Engineer Name Role Phone Jacob FORD, Rose Primary Care Physician Rudi Tolentino Attending Clinician Unavailable GHISLAINE SAMUEL Attending Clinician Unavailable Provider, [facility] Attending Clinician Lala Ghislaine Seaman PA-C Attending Clinician [phone] Doctor Unassigned, [place] Attending Clinician U DAKOTA Trivedi Attending Clinician Unavailab TERRANCE Ng Attending Clinician Unavailable Terrance Alicea DDS Attending Clinician [phone] Joao Babcock DO Attending Clinician [phone] Anel Cisneros Attending Clinician + ANEL METZ Attending Clinician Unavail able TERRANCE ALICEA Admitting Clinician Unavailable Terrance Alicea DDS Admitting Clinician Payers Payer Name Policy Type Policy Number Effective Date Expirati on Date Source [id number] 2018 00:00:00 Problems Condition Name Condition Details Condition Category Status Onset Date Resolution Date Last Treatment Date Treating Clinician Comments Source Type 1 diabetes mellitus without complicati on Type 1 diabetes mellitus without complicati on Disease Active 2021-02 00:00: 00 [facility] Overweight (BMI 25.0-29.9) Overweight (BMI 25.0-29.9) Disease Active 2021-02 00:00: 00 [facility] Nexplanon in place Nexplanon in place Disease Active 2021-02 00:00: 00 [facility] Submandibu lar abscess Submandibu lar abscess Disease Active 2020-02 00:00: 00 [facility] Cervical Papanicola ou smear negative within last 12 months Cervical Papanicola ou smear negative within last 12 months Disease Active - 00:00: 00 Overview: Formattin g of this note might be different from the original. NIL pap 10/2018, see scanned records [facility] Other general counseling and advice for contracept zelda management Other general counseling and advice for contracept zelda management Disease Active 3-12 00:00: 00 [facility] Abnormal glucose Abnormal glucose Disease Active -13 00:00: 00 [facility] Abnormal maternal glucose tolerance, antepartum Abnormal maternal glucose tolerance, antepartum Disease Active 12 00:00: 00 [facility] History of gestationa l diabetes History of gestationa l diabetes Disease Active 03-30 00:00: 00 [facility] History of pre-eclamp blanca in prior , currently History of pre-eclamp blanca in prior , currently Disease Active 03-30 00:00: 00 [facility] Multiparit y Multiparit y Disease Active 03-30 00:00: 00 [facility] Diet controlled gestationa l diabetes mellitus (GDM) in second trimester Diet controlled gestationa l diabetes mellitus (GDM) in second trimester Disease Active 05-27 00:00: 00 Overview: A2GDM- glybnurid e 2.5 mg Q am and 5 mg Q pm [facility] High risk , antepartum High risk , antepartum Disease Active 2014-02 00:00: 00 [facility] Allergies, Adverse Reactions, Alerts Allergy Name Allergy Type Status Severity Reaction(s) Onset Date Inactive Date Treating Clinician Comments Source hydrocod one Propensi ty to adverse reaction to drug Active 09-09 00:00: 00 Edouard Monzon No Known Allergie s DA Active U 06-09 00:00: 00 [facility] NO KNOWN ALLERGIE S Drug Class Active [facility] Social History Social Habit Start Date Stop Date Quantity Comments Source Exposure to SARS-CoV-2 (event) 2021-12-12 00:00:00 2021-12-22 12:38:[address] [facility] Tobacco use and exposure 2021-12-22 00:00:00 2021-12-22 00:00:00 Smokeless tobacco non-user [facility] Alcohol intake 2021-12-22 00:00:00 2021-12-22 00:00:00 0 /d [facility] Tobacco Comment 2021-12-22 00:00:00 2021-12-22 00:00:00 smokes 3 cigarettes per day. pt states she stopped smoking since she found out about . [facility] History of tobacco use 2014-12-22 00:00:[address] [facility] Sex Assigned At 1990 00:00:00 1990 00:00:[address] [facility] Smoking Status Start Date Stop Date Source Smokes tobacco daily 2021-12-22 00:00:[address] [facility] Medications Ordered Medication Name Filled [...] 2021-02 19:15: 00 12-22 18:35 :00 No [id number] 68mg [facility] insulin degludec (TRESIBA U-100 INSULIN SC) 2021-02 12:59: 59 Yes inject under the skin. [facility] dapaglifloz in-metformi n (XIGDUO XR) 10-1,000 mg TBph 2021-02 12:40: 33 Yes Xigduo XR 10 mg-1,000 mg tablet,ext ended release Take 1 tablet every day by oral route for 30 days. [facility] cephALEXin (KEFLEX) 500 mg capsule 2021-02 00:00: 00 12-30 05:59 :00 No [id number] 500mg Take 1 capsule by mouth 4 (four) times daily for 7 days. [facility] TAKE ONE (1) TABLET(S) BY MOUTH IN [...] day by oral route for 30 days. [facility] dapaglifloz in-metformi n (XIGDUO XR) 10-1,000 mg TBph 2020-02 17:25: 56 Yes Xigduo XR 10 mg-1,000 mg tablet,ext ended release Take 1 tablet every day by oral route for 30 days. [facility] chlorhexidi ne (PERIDEX) 0.12 % mouthwash 15 mL 2020-02 14:00: 00 Yes 15mL 15 mL, Oral (Swish And Spit Out), BID, First dose on Fri12/24/20 at 0800, Until Discontinu ed, Routine [facility] Sliding Scale Insulin - Lispro (HumaLOG) + Fsbg Testing 2020-02 14:00: 00 Yes Subcutaneo us, TID MEALS+HS, First dose on Fri12/24/20 at 0800, Until Discontinu ed, Routine [facility] lactated ringers IV infusion 1,000 mL 2020-02 07:30: 00 Yes 1000mL at 50 mL/hr, 1,000 mL, IV Infusion, CONTINUOUS , Starting on Fri12/24/20 at 0130, Until Discontinu ed, Routine [facility] naloxone (NARCAN) injection 0.1 mg 2020-02 07:21: 11 Yes .1mg 0.1 mg, Slow IV Push, PRN - SEE INSTRUCTIO NS, Starting on Fri12/24/20 at 0121, Until Discontinu ed, Routine, Sedation/R espiratory Depression , See admin instructio ns. [facility] morpHINE injection 2 mg 2020-02 07:21: 11 12-26 07:20 :11 No 2mg 2 mg, Slow IV Push, Q3HPRN, Starting on Fri12/24/20 at 0121, Until Fri12/26/20 at 0120, Routine, Pain (scale 7-10) [facility] HYDROcodone -acetaminop hen (NORCO 5) 5-325 mg tablet 1 tablet 2020-02 07:21: 10 Yes 1{tbl} 1 tablet, Oral, Q6HPRN, Starting on Fri12/24/20 at 0121, Until Discontinu ed, Routine, Pain (scale 4-6) [facility] ibuprofen (ADVIL CHILDREN'S) 100 mg/5 mL oral suspension 600 mg 2020-02 07:21: 04 Yes 600mg 600 mg, Oral, Q6HPRN, Starting on Fri12/24/20 at 0121, Until Discontinu ed, Routine, Pain (scale 1-3) [facility] ondansetron (ZOFRAN (PF)) injection 4 mg 2020-02 07:20: 54 Yes 4mg 4 mg, Slow IV Push, Q4HPRN, Starting on 12/24/20 at 0120, Until Discontinu ed, Routine, Nausea and Vomiting (N/V) [facility] chlorhexidi ne 0.12 % mouthwash 2020-02 00:00: 00 12-22 00:00 :00 No [id number] 15mL Swish and spit out 15 mL 2 (two) times daily. [facility] ibuprofen 100 mg/5 mL oral suspension 2020-02 00:00: 00 12-22 00:00 :00 No [id number] 600mg Take 30 mL by mouth every 6 (six) hours as needed for Pain (scale 1-3). [facility] HYDROcodone -acetaminop hen 5-325 mg tablet 2020-02 00:00: 00 01-01 05:59 :00 No [id number] 1{tbl} Take 1 tablet by mouth every 6 (six) hours as needed for Pain (scale 4-6) for up to 7 days. Indication s: acute pain [facility] amoxicillin -clavulanat e (AUGMENTIN) 875-125 mg per tablet 2020-02 00:00: 00 01-01 05:59 :00 No [id number] 1{tbl} Take 1 tablet by mouth 2 (two) times daily for 7 days. [facility] Dose Unknown 2019-02 00:00: 00 Yes Edouard F Nicolás Dose Unknown 2019-02 0 00:00: 00 Yes Edouard Monzon glipizide 10 mg tablet 2019-02 00:00: 00 Yes 1mg Edouard F Nicolás Dose Unknown 6-09 00:00: 00 Yes Edouard F Nicolás Dose Unknown - 00:00: 00 Yes Edouard F Nicolás Dose Unknown 20 00:00: 00 Yes Edouard Lester Monzon glipizide 5 mg tablet 02-25 00:00: 00 Yes 1mg Edouard Monzon Levemir FlexTouch U-100 Insulin 100 unit/mL (3 mL) subcutaneou s pen 02-25 00:00: 00 Yes 12(3 mL) Edouard Monzon Dose Unknown 02-25 00:00: 00 Yes Edouard Monzon Dose Unknown 02-25 00:00: 00 Yes Edouard Monzon Blood-Gluco se Meter (FREESTYLE LITE METER) Kit 04-06 00:00: 00 Yes [id number] Use as directed [facility] lancets 17 gauge Misc 04-06 00:00: 00 Yes [id number] Use as directed [facility] blood sugar diagnostic (FREESTYLE LITE STRIPS) strip 04-06 00:00: 00 12-22 00:00 :00 No [id number] Use as directed [facility] vit 33-iron-fol ic-dha (SELECT-OB + DHA) 29 mg iron-1 mg -250 mg combo pack 03-31 00:00: 00 12-22 00:00 :00 No [id number] 1{packe t} Take 1 Packet by mouth daily. [facility] Vital Signs Vital Name Observation Time Observation Value Comments S ource Systolic blood pressure 2021-12-22 17:38:00 119 mm[Hg] [facility] Diastolic blood pressure 2021-12-22 17:38:00 77 mm[Hg] [facility] Heart rate 2021-12-22 17:38:00 76 /min [facility] Body temperature 2021-12-22 17:38:[address] [facility] Respiratory rate 2021-12-22 17:38:00 18 /min [facility] Body height 2021-12-22 17:38:00 154.9 cm [facility] Body weight 2021-12-22 17:38:00 60.51 kg [facility] BMI 2021-12-22 17:38:00 25.21 kg/m2 [facility] Systolic blood pressure 2020-12-24 17:05:00 125 mm[Hg] [facility] Diastolic blood pressure 2020-12-24 17:05:00 87 mm[Hg] [facility] Heart rate 2020-12-24 17:05:00 91 /min [facility] Body temperature 2020-12-24 17:05:[address] [facility] Respiratory rate 2020-12-24 17:05:00 18 /min [facility] Oxygen saturation in Arterial blood by Pulse oximetry 2020-12-24 17:05:00 98 /min [facility] Body weight 2020-12-24 06:32:00 68.04 kg [facility] BMI 2020-12-24 06:32:00 28.34 kg/m2 [facility] Systolic blood pressure 2020-04-28 16:31:00 106 mm[Hg] [facility] Diastolic blood pressure 2020-04-28 16:31:00 73 mm[Hg] [facility] Heart rate 2020-04-28 16:31:00 77 /min [facility] Body temperature 2020-04-28 16:31:[address] [facility] Respiratory rate 2020-04-28 16:31:00 16 /min [facility] Body height 2020-04-28 16:31:00 154.9 cm [facility] Body weight 2020-04-28 16:31:00 59.081 kg [facility] BMI 2020-04-28 16:31:00 24.61 kg/m2 [facility] Systolic blood pressure 2020-04-28 16:31:00 106 mm[Hg] [facility] Diastolic blood pressure 2020-04-28 16:31:00 73 mm[Hg] [facility] Heart rate 2020-04-28 16:31:00 77 /min [facility] Body temperature 2020-04-28 16:31:[address] [facility] Respiratory rate 2020-04-28 16:31:00 16 /min [facility] Body height 2020-04-28 16:31:00 154.9 cm [facility] Body weight 2020-04-28 16:31:00 59.081 kg [facility] BMI 2020-04-28 16:31:00 24.61 kg/m2 [facility] BP Diastolic 2023-09-10 11:07:00 86 mm[Hg] Santhosh [...] Heart Rate 2019-02-25 17:49:00 74.00 /min Barby oMnzon Respiratory Rate 2019-02-25 17:49:00 Edouard Monzon Procedures Procedure Date / Time Performed Performing Clinicia n Source POCT TEST 2021-12-22 17:49:[address] [facility] GARDASIL 9 (HPV 9V) VACCINE 2021-12-22 17:48:[address] [facility] ASSIGNMENT OF BENEFITS 2021-12-22 17:24:31 Docgertrude r Unassigned, [place] [facility] EXTERNAL PROVIDER RECORDS 2021-01-02 06:01:00 Doctor Unassigned, [place] [facility] POCT GLUCOSE (AUTOMATED) 2020-12-24 14:10:[address] [facility] ASSIGNMENT OF BENEFITS 2020-04-28 17:41:20 Docgertrude r Unassigned, [place] [facility] FLU VACC ([id number]), 6+ MONTHS, IM, QUAD 2020-04-28 17:21:[address] [facility] Encounters Start Date/Time End Date/Time Encounter Type Admission Type Attending Clinicians Care Facility Care Department Encounter ID Source 2023-10-22 00:00:00 2023-10-22 00:00:00 Outpatient Rudi Tolentino Kalyani W [id number] [facility] 2023-09-15 09:57:31 2023-09-15 09:57:31 Outpatient SFA S[facility] [id number] Edouard Monzon 2023-09-10 10:58:00 2023-09-10 10:58:00 Outpatient SFA SFA [id number] Edouard Monzon 2023-09-10 00:00:00 2023-09-10 00:00:00 Outpatient Visit SFA [id number] Edouard Monzon 2023-06-17 00:00:00 2023-06-17 00:00:00 Outpatient Visit SFA [id number] Edouard Monzon 2023-04-18 08:56:19 2023-04-18 08:56:19 Outpatient SFA SFA [id number] Edouard Monzon 2023-04-15 15:40:19 2023-04-15 15:40:19 Outpatient SFA [facility] [id number] Edouard Monzon 2023-02-24 13:34:59 2023-02-24 13:34:59 Outpatient SFA [facility] [id number] Edouard Monzon 2022-12-13 10:21:56 2022-12-13 10:21:56 Outpatient SFA [facility] [id number] Edouard Monzon 2022-11-30 12:58:22 2022-11-30 12:58:22 Outpatient SFA [facility] [id number] Edouard Batista Nicolás 2021-12-22 12:45:00 2021-12-22 13:22:01 Outpatient GHISLAINE GAMBOA [facility] [id number] [facility] 2021-12-22 12:45:00 2021-12-22 13:22:01 Office Visit Provider, MagalieRmchp Ghislaine Swenson [facility] [employer] OPER[employer] [facility] [id number] [id number] [id number] [id number] [facility] 2021-12-22 00:00:00 2021-12-22 00:00:00 Orders Only Doctor Unassigned, [place] [facility] [id number] [id number] [id number] [id number] [facility] 2021-01-02 00:00:00 2021-01-02 00:00:00 Orders Only Doctor Unassigned, [place] [facility] [id number] 350.1.13.10 4.2.7.2.686 [id number] [facility] 2020 14:00:00 2020 14:00:00 Outpatient R DARRELL [facility] [id number] [facility] 2020-12-26 16:30:00 2020-12-26 16:30:00 Outpatient R DARRELL [facility] [id number] [facility] 2020-12-24 01:34:00 2020-12-24 17:25:00 Outpatient X DARRELL [facility] HER[facility]IL[facility] [id number] [facility] 2020-12-24 01:34:00 2020-12-24 17:25:00 Emergency [facility] 1.840.114 [id number] 4.2.7.2.686 [id number] [facility] 2020-05-09 00:00:00 2020-05-09 00:00:00 Patient Outreach Joao Babcock [facility] [id number] 350.1.13.10 4.2.7.2.686 [id number] 2020-05-09 00:00:00 2020-05-09 00:00:00 Patient Outreach Joao Babcock [facility] [id number] 350.1.13.10 [id number] [id number] [facility] 2020-04-28 10:17:04 2020-04-28 11:41:16 Office Visit Anel Metz [facility] [employer] [facility] [id number] [id number] [id number] [id number] 2020-04-28 10:17:04 2020-04-28 11:41:16 Office Visit Cesar Metzchaz Munguia [facility] [employer] [facility] [id number] [id number] [id number] [id number] [facility] 2020-04-28 10:15:00 2020-04-28 10:15:00 Outpatient R ANEL METZ [facility] [id number] [facility] 2020-04-28 00:00:00 2020-04-28 00:00:00 Orders Only Doctor Unassigned, [place] [facility] 1..840.114 350.1.13.10 [id number] [id number] [facility] Results Test Description Test Time Test Comments Results Result Co mments Source LIPID [id number] 05:04:06* Test Item Value Reference Range Interpretation [...] SPECIMENS. FOR MOREINFORMATION, SEE CLIENT ANNOUNCEMENT AT [email or web address] CalcLDL-C RISK RATIO LDL/HDL (test code = 2238) (NOTE) RATIO <3.22 UNABLE TO RADHA CULATE COMPREHENSIVE METABOLIC [id number] 05:04:06* Test Item Value Reference Range Interpretation [...] 2218) 15 U/L 5-40 ALBUMIN/CREATININE RATIO, URINE, [id number] 04:18:31* Test Item Value Reference Range Interpretation Comme nts CREATININE, URINE, CONC. (test code = 207) 30.4 MG/DL NOT ESTAB ALBUMIN, URINE, RANDOM (test code = 05732) 2.4 MG/DL NOT ESTAB CALC ALBUMIN/CREAT, RND (test code = 05666) 79 MG/G <30 H Note: Albumin/Cr eatinine ratio reference interval reflects ADA and NKF guidelines. UNLESS OTHERWISE INDICATED, ALL TESTING PERFORMED AT [facility] [address] [place] [address] PIECE WORKER: FRANCO UGARTE M.D. CLIA NUMBER [id number] [facility] [place]. [id number] HEMOGLOBIN [id number] 00:00:00* Test Item Value Reference Range Interpretation Comme ritchie HEMOGLOBIN A1c (test code = 16462) 12.8 % Edouard MonzonLIPID [id number] 00:00:00* Test Item Value Reference Range Interpretation Comme nts CHOLESTEROL (test code = 2210) 261 MG/DL TRIGLYCERIDES (test code = 2232) 657 MG/DL HDL CHOLESTEROL (test code = 2220) 47 MG/DL CALC LDL CHOL (test code = 2237) (NOTE) MG/DL RISK RATIO LDL/HDL (test cod e = 2238) (NOTE) RATIO Edouard MonzonCOMPREHENSIVE METABOLIC [id number] 00:00:00* Test Item Value Reference Range Interpretation Comme nts GLUCOSE (test code = 2217) 372 MG/DL BUN (test code = 2208) 14 MG/DL CREATININE (test code = 2214) 0.69 MG/DL eGFR (2020 CKD-EPI) (test code = 27038) 118 ML/MIN/1.73 CALC BUN/CREAT (test code = [...] 2219) 15 U/L Edouard MonzonALBUMIN/CREATININE RATIO, RANDOM [id number] 00:00:00* Test Item Value Reference Range Interpretation Comme nts CREATININE, URINE, CONC. (te st code = 2072) 30.4 MG/DL ALBUMIN, URINE, RANDOM (test code = 82337) 2.4 MG/DL CALC ALBUMIN/CREAT, RND (kelsie t code = 53161) 79 MG/G Edouard MonzonHEMOGLOBIN [id number] 00:00:00* Test Item Value Reference Range Interpretation Comme ritchie HEMOGLOBIN A1c (test code = 10442) 12.8 % Edouard MonzonLIPID [id number] 00:00:00* Test Item Value Reference Range Interpretation Comme nts CHOLESTEROL (test code = 2210) 261 MG/DL TRIGLYCERIDES (test code = 2232) 657 MG/DL HDL CHOLESTEROL (test code = 2220) 47 MG/DL CALC LDL CHOL (test code = 2237) (NOTE) MG/DL RISK RATIO LDL/HDL (test cod e = 2238) (NOTE) RATIO Edouard MonzonCOMPREHENSIVE METABOLIC [id number] 00:00:00* Test Item Value Reference Range Interpretation Comme nts GLUCOSE (test code = 2217) 372 MG/DL BUN (test code = 2208) 14 MG/DL CREATININE (test code = 2214) 0.69 MG/DL eGFR (2020 CKD-EPI) (test code = 71363) 118 ML/MIN/1.73 CALC BUN/CREAT (test code = [...] 15 U/L Edouard Batista AustinALBUMIN/CREATININE RATIO, RANDOM [id number] 00:00:00* Test Item Value Reference Range Interpretation Comme nts CREATININE, URINE, CONC. (te st code = 2072) 30.4 MG/DL ALBUMIN, URINE, RANDOM (test code = 27823) 2.4 MG/DL CALC ALBUMIN/CREAT, RND (kelsie t code = 55308) 79 MG/G Edouard Batista AustinLIPID [id number] 03:43:12* Test Item Value Reference Range Interpretation [...] SPECIMENS. FOR MOREINFORMATION, SEE CLIENT ANNOUNCEMENT AT [email or web address]-[email or web address] RISK RATIO LDL/HDL (test code = 2238) 2.94 RATIO <3.22 COMPREHENSIVE METABOLIC [id number] 03:43:12* Test Item Value Reference Range Interpretation Comme nts GLUCOSE (test code = 2217) 507 MG/DL 70-99 HH RESULTS RECHECKE D AND VERIFIED BUN (test code = 2207) 13 MG/DL 6-20 CREATININE (test code = 2214) 0.80 MG/DL 0.60-1.30 eGFR (2020 CKD-EPI) (test code = 94059) 101 ML/MIN/1.73 >60 CALC BUN/CREAT (test code [...] TESTING PERFORMED AT [facility] [address] [place] [address] PIECE WORKER: FRANCO UGARTE M.D. CLIA NUMBER [id number] [facility] [place]. [id number] LIPID [id number] 00:00:00* Test Item Value Reference Range Interpretation Comme nts CHOLESTEROL (test code = 2210) 294 MG/DL TRIGLYCERIDES (test code = 2232) 280 MG/DL HDL CHOLESTEROL (test code = 2220) 62 MG/DL CALC LDL CHOL (test code = 2237) 182 MG/DL RISK RATIO LDL/HDL (test cod e = 2238) 2.94 RATIO Edouard MonzonCOMPREHENSIVE METABOLIC [id number] 00:00:00* Test Item Value Reference Range Interpretation Comme nts GLUCOSE (test code = 2217) 507 MG/DL BUN (test code = 2208) 13 MG/DL CREATININE (test code = 2214) 0.80 MG/DL eGFR (2020 CKD-EPI) (test code = 90737) 101 ML/MIN/1.73 CALC BUN/CREAT (test code = [...] code = 2219) 13 U/L Edouard MonzonLIPID [id number] 00:00:00* Test Item Value Reference Range Interpretation Comme nts CHOLESTEROL (test code = 2210) 294 MG/DL TRIGLYCERIDES (test code = 2232) 280 MG/DL HDL CHOLESTEROL (test code = 2220) 62 MG/DL CALC LDL CHOL (test code = 2237) 182 MG/DL RISK RATIO LDL/HDL (test cod e = 2238) 2.94 RATIO Edouard MonzonCOMPREHENSIVE METABOLIC [id number] 00:00:00* Test Item Value Reference Range Interpretation Comme nts GLUCOSE (test code = 2217) 507 MG/DL BUN (test code = 2208) 13 MG/DL CREATININE (test code = 2214) 0.80 MG/DL eGFR (2020 CKD-EPI) (test code = 86513) 101 ML/MIN/1.73 CALC BUN/CREAT (test code = [...] code = 2219) 13 U/L Edouard MonzonHEMOGLOBIN [id number] 02:28:23* Test Item Value Reference Range Interpretation Comme nts HEMOGLOBIN A1c (test code = 76884) 12.9 % 4.2-5.6 H [employer] GUIDELINES FOR HGB A1C: [...] CONSIDER ALTERNATE TESTING OR LABORATORY CONSULTATION. HEMOGLOBIN [id number] 00:00:00* Test Item Value Reference Range Interpretation Comme [facility] HEMOGLOBIN A1c (test code = 09693) 12.9 % Edouard Batista AustinHEMOGLOBIN [id number] 00:00:00* Test Item Value Reference Range Interpretation Comme nts HEMOGLOBIN A1c (test code = 71111) 12.9 % Edouard Batista AustinPOCT [id number] 17:50:00* Test Item Value Reference Range Interpretation Comme nts POCT PREG (test code = 1605) Negative On board controls acceptable with C Line (test code = 3574) Yes POCT PREG LOT # (test code = 3575) POCT PREG TEST DATE ( test code = 3576) [facility] [id number] 17:50:00* Test Item Value Reference Range Interpretation Comme nts POCT PREG (test code = 1605) Negative On board controls acceptable with C Line (test code = 3574) Yes POCT PREG LOT # (test code = 3575) POCT PREG TEST DATE ( test code = 3576) [facility]), RT-PCR/[id number] 17:22:59* Test Item Value Reference Range Interpretation Comments SARS-CoV-2 INTERPRETATION (test code = 91277) NEGATIVE SEE NOTE SARS-CoV-2 R NA NOT [...] prevalence is high. SOURCE (test code = 17803) NASOPHARYNGEAL Note: Methodolog y is Juliana Leeann Real-Time RT-PCR. The expected result or reference range is NEGATIVE (Not Detected). For more information regarding COVID-19 testing to include clinicalinformation, methodology detail, intended use, FDA authorization andrecommended fact sheets for patients or healthcare providers, see [facility] Announcement: SARS-CoV-2 (COVID-19) by NAAT at URL below (note,fact sheets are provided by method given in report:[email or web address] Alternatively, see downloadable PDF fact sheet at:[email or web address] UNLESS OTHERWISE INDICATED, ALL TESTING PERFORMED [facility]ITAL[facility] [place], [facility]. [address] [place] [address] PIECE WORKER: ERICK NEAL M.D. [place] NUMBER [id number] [facility] [place]. [id number] SARS-CoV-2 (COVID-19) by RT-PCR (HIGH RISK)2021-02-25 00:00:00* Test Item Value Reference Range Interpretation Comme nts SARS-CoV-2 INTERPRETATION (test code = 40956) NEGATIVE SOURCE (test code = 18356) NASOPHARYNGEAL Edouard Batista [id number]-[id number]-7 (COVID-19) by RT-PCR (HIGH RISK)2021-02-25 00:00:00* Test Item Value Reference Range Interpretation Comme nts SARS-CoV-2 INTERPRETATION (test code = 95150) NEGATIVE SOURCE (test code = 57113) NASOPHARYNGEAL Edouard Batista AustinPOCT GLUCOSE (AUTOMATED)2020-12-24 14:12:21* Test Item Value Reference Range Interpretation Comme nts POCT GLU (test code = 8533714879) 212 mg/dL 70-110 H Lab Interpretation (test cod e = 61580-3) Abnormal [facility] ([facility]OVID-19) by RT-PCR (HIGH RISK) 2020-03-05 00:00:00* Test Item Value Reference Range Interpretation Comme nts SARS-CoV-2 INTERPRETATION (t est code = 23037) NEGATIVE SOURCE (test code = 35416) NOT SPECIFIED Edouard Batista [id number]-[id number]-5 (COVID-19) by RT-PCR (HIGH RISK)2020-03-05 00:00:00* Test Item Value Reference Range Interpretation Comme nts SARS-CoV-2 INTERPRETATION (t est code = 02254) NEGATIVE SOURCE (test code = 81092) NOT SPECIFIED Edouard MonzonHEMOGLOBIN [id number] 00:00:00* Test Item Value Reference Range Interpretation Comme ritchie HEMOGLOBIN A1c (test code = 91379) 10.2 % Edouard Batista AustinHEMOGLOBIN [id number] 00:00:00* Test Item Value Reference Range Interpretation Comme ritchie HEMOGLOBIN A1c (test code = 94585) 10.2 % Edouard MonzonCBC W/AUTO [id number] 00:00:00* Test Item Value Reference Range Interpretation [...] = 1015) 389 K/UL Edouard MonzonCOMPREHENSIVE METABOLIC [id number] 00:00:00* Test Item Value Reference Range Interpretation Comme nts GLUCOSE (test code = 2217) 317 MG/DL BUN (test code = 2208) 12 MG/DL CREATININE (test code = 2214) 0.78 MG/DL eGFR AMER. (test cod e = 80239) 120 ML/MIN/1.73 eGFR NON- AMER. (test code = 42582) 103 ML/MIN/1.73 CALC BUN/CREAT (test code = [...] code = 2219) 10 U/L Edouard MonzonHEMOGLOBIN [id number] 00:00:00* Test Item Value Reference Range Interpretation Comme nts HEMOGLOBIN A1c (test code = 73200) 10.7 % Edouard MonzonLIPID [id number] 00:00:00* Test Item Value Reference Range Interpretation Comme nts CHOLESTEROL (test code = 2210) 250 MG/DL TRIGLYCERIDES (test code = 2232) 336 MG/DL HDL CHOLESTEROL (test code = 2220) 43 MG/DL CALC LDL CHOL (test code = 2237) 155 MG/DL RISK RATIO LDL/HDL (test cod e = 2238) 3.60 RATIO Edouard Batista NicolásCBC W/AUTO [id number] 00:00:00* Test Item Value Reference Range Interpretation [...] = 1015) 389 K/UL Edouard MonzonCOMPREHENSIVE METABOLIC [id number] 00:00:00* Test Item Value Reference Range Interpretation Comme nts GLUCOSE (test code = 2217) 317 MG/DL BUN (test code = 2208) 12 MG/DL CREATININE (test code = 2214) 0.78 MG/DL eGFR AMER. (test cod e = 55047) 120 ML/MIN/1.73 eGFR NON- AMER. (test code = 14920) 103 ML/MIN/1.73 CALC BUN/CREAT (test code = [...] code = 2219) 10 U/L Edouard MonzonHEMOGLOBIN [id number] 00:00:00* Test Item Value Reference Range Interpretation Comme ritchie HEMOGLOBIN A1c (test code = 74935) 10.7 % Edouard MonzonLIPID [id number] 00:00:00* Test Item Value Reference Range Interpretation Comme nts CHOLESTEROL (test code = 2210) 250 MG/DL TRIGLYCERIDES (test code = 2232) 336 MG/DL HDL CHOLESTEROL (test code = 2220) 43 MG/DL CALC LDL CHOL (test code = 2237) 155 MG/DL RISK RATIO LDL/HDL (test cod e = 2238) 3.60 RATIO Edouard [id number] 15:58:00* Test Item Value Reference Range Interpretation Comme nts GLUBED (test code = GLUBED) 148 mg/dL 65-110 H [id number] 10:51:00* Test Item Value Reference Range Interpretation Comme nts GLUBED (test code = GLUBED) 174 mg/dL 65-110 H [id number] 06:04:00* Test Item Value Reference Range Interpretation Comme nts GLUBED (test code = GLUBED) 83 mg/dL 65-110 N GLYCOSYLATED HEMOGLOBIN [id number] 04:40:00* Test Item Value Reference Range Interpretation [...] MBG) 189 MG/DL 70-110 H COMPREHENSIVE METABOLIC [id number] 04:40:00* Test Item Value Reference Range Interpretation [...] as fructosamineshould be considered for these patients. [id number] 00:14:00* Test Item Value Reference Range Interpretation Comme nts GLUBED (test code = GLUBED) 194 mg/dL 65-110 H COMPREHENSIVE METABOLIC [id number] 21:06:00* Test Item Value Reference Range Interpretation [...] C) (test code = GLYHGB) CBC W/AUTO [id number] 20:53:00* Test Item Value Reference Range Interpretation [...] (test code = PLTMR) NORMAL NORMAL URINALYSIS [id number] 20:08:00* Test Item Value Reference Range Interpretation [...] #/hpf NONE SEEN A URINE SAMPLE: CLEAN [id number] 20:01:00* Test Item Value Reference Range Interpretation Comme nts GLUBED (test code = GLUBED) 196 mg/dL 65-110 H URINALYSIS [id number] 19:53:00* Test Item Value Reference Range Interpretation [...] CLEAN CATCH Notes Date/Time Note Provider Source [facility]2024-04-30 00:00:00 [facility]2019-05-01 17:42:[id number] [place] [address] PATIENT NAME: AILYN MCCOY ADMIT DATE: 06/09/18 ACCOUNT NO: [id number] ROOM NO: .3026 AGE: 27 SEX: F ADMITTING PHYSICIAN: Richard [...] her Toujeo. Now on arrival in the [facility], her blood glucose level is 196. She [...] in this . 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 Nutritional consult and nursing educator will see the patient in the [...] also strongly encouraged to quit smoking altogether. therapeutic program worker consult is requested. Dictated By: Kathy Corona MD WT: HP:JERRY/YESSY/NTS Conf#: [id number]/DID#: [id number] Authenticated and Edited by Kathy Corona MD On 07/08/18 8:40:30 AM at 0843 PATIENT NAME: AILYN MCCOY 14:02:00 [facility] Disch Undelivered REPORT#:[id number] REPORT STATUS: Signed DATE:06/10/18 TIME: 1402 PATIENT: AILYN MCCOY UNIT #: [id number] ROOM/BED: [address] : 90 AGE: 27 SEX: F [...] Consultation performed: NUTRITION/DIABETES EDUCATION at 1404 RPT #:[id number] END OF REPORT [id number] 14:02:00 [facility] ([facility]) OB Disch Undelivered REPORT#:[id number] REPORT STATUS: Signed DATE:06/10/18 TIME: 1402 PATIENT: AILYN MCCOY UNIT #: [id number] ROOM/BED: [address] : 90 AGE: 27 SEX: F [...] a week and weekly at 1412 RPT #:[id number] END OF REPORT [id number] 13:15:00 [facility] ([facility]) OB Admission / H P REPORT#:[id number] REPORT STATUS: Signed DATE:06/10/18 TIME: 1315 PATIENT: AILYN MCCOY UNIT #: [id number] ROOM/BED: [address] : 90 AGE: 27 SEX: F [...] HCl 4 MG Q4H PRN PRN 06/10 030 AC 06/10 (ZOFRAN 4 MG UD TAB) [...] Vaccine IM 06/09 2100 2338 (FLUZONE QUAD 2017- 2018 S[facility]) Vitamins Sig/Eddi Start time Last [...] Consultation performed: NUTRITION/DIABETES EDUCATION at 1324 RPT #:[id number] END OF REPORT [facility]
--- NOTE | 2024-04-02 21:21 | ER ---
Nurse's Notes [facility] Name: Harriett Gillette Age: 33 yrs Sex: Female : 1990 Arrival Date: 04/02/2024 Time: 20:35 Bed IW5 Private MD: Diagnosis: Acute upper respiratory infection, unspecified Presentation: 04/02 21:13 Chief complaint: Patient states: has had infected tooth on R lower side for the past al5 week, has been taking amoxicillin that her mother gave her. at about 1530 for the headache and jaw pain, went to take a nap and woke up at 1930 with headache, jaw pain, fatigue, cough, and congestion. Coronavirus screen: congestion, cough unrelated to allergies, fatigue. Ebola Screen: No symptoms or risks identified at this time. Resp Distress? No respiratory distress is noted at this time. Initial Sepsis Screen: Does the patient meet any 2 criteria? No. Patient's initial sepsis screen is negative. Does the patient have a suspected source of infection? No. Patient's initial sepsis screen is negative. Risk Assessment: Do you want to hurt yourself or someone else? Patient reports no desire to harm self or others. Onset of symptoms was April 02, 2024. 21:13 Method Of Arrival: Ambulatory al5 21:13 Acuity: TIFFANIE 4 al5 Triage Assessment: 21:15 General: Appears in no apparent distress. uncomfortable, ill, Behavior is calm, al5 cooperative. Pain: Complains of pain in right jaw, head Pain currently is 5 out of 10 on a pain scale. EENT: No signs and/or symptoms were reported regarding the EENT system. Neuro: Level of Consciousness is awake, alert, obeys commands, Oriented to person, place, time, situation. Cardiovascular: Capillary refill < 3 seconds Patient's skin is warm and dry. Respiratory: Reports cough that is congestion Airway is patent Respiratory effort is even, unlabored, Respiratory pattern is regular, symmetrical. GI: No signs and/or symptoms were reported involving the gastrointestinal system. : No signs and/or symptoms were reported regarding the genitourinary system. Derm: Skin is intact, is healthy with good turgor, Skin is pink, warm \T\ dry. normal. Musculoskeletal: No signs and/or symptoms reported regarding the musculoskeletal system. 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 - Infectious Disease History:: Denies. - Social history:: Smoking status: Patient/guardian denies using tobacco. Screenin:16 [facility] ED Fall Risk Assessment (Adult) History of falling in the last 3 months, al5 including since admission No falls in past 3 months (0 pts) Confusion or Disorientation No (0 pts) Intoxicated or Sedated No (0 pts) Impaired Gait No (0 pts) Mobility Assist Device Used No (0 pt) Altered Elimination No (0 pt) Score/Fall Risk Level 0 - 2 = Low Risk Oriented to surroundings, Maintained a safe environment, Hourly rounding (assess needs \T\ fall precautionary measures) done. Abuse screen: Denies threats or abuse. Denies injuries from another. Nutritional screening: No deficits noted. Tuberculosis screening: No symptoms or risk factors identified. Assessment: 21:15 Reassessment: see triage assessment. al5 21:15 Respiratory: Breath sounds are clear bilaterally. al5 21:31 Reassessment: discharge pending shot time. al5 Vital Signs: 21:13 BP 126 / 89; Pulse 89; Resp 16; Temp 98.8; Pulse Ox 100% on R/A; Weight 68.04 kg; al5 Height 5 ft. 0 in. ; Pain 5/10; 21:13 Body Mass Index 29.29 (68.04 kg, 152.4 cm) al5 21:13 Pain Scale: Adult al5 ED Course: 20:38 Patient arrived in ED. gm2 20:39 Татьяна Leal PA-C is PHCP. sb4 20:39 Nicolas Mcbride MD is Attending Physician. sb4 21:15 Triage completed. al5 21:17 Arm band placed on right wrist. Patient placed in waiting room, in view of staff al5 members, on pulse oximetry, provider in triage room speaking with patient Patient notified of wait time. 21:17 Patient has correct armband on for positive identification. al5 21:18 No provider procedures requiring assistance completed. Patient did not have IV access al5 during this emergency room visit. 21:31 Mayte Layne, RN is Primary Nurse. al5 21:31 Provided Education on: medication, discharge follow up. al5 Administered Medications: 21:32 Drug: Dexamethasone IM 10 mg IM once Route: IM; Site: right deltoid; al5 21:46 Follow up: Response: No adverse reaction al5 Medication: 21:15 VIS not applicable for this client. al5 Outcome: 21:20 Discharge ordered by . sb4 21:47 Discharged to home ambulatory, al5 21:47 Condition: good 21:47 Discharge instructions given to patient, Instructed on discharge instructions, follow up and referral plans. medication usage, Demonstrated understanding of instructions, follow-up care, medications, Prescriptions given X 1, 21:47 Patient left the ED. al5 Signatures: Татьяна Leal PA-C PAKatherinC sb4 Shell Tapia 2 Mayte Layne, RN RN al5 Corrections: (The following items were deleted from the chart) 21:33 21:32 Reassessment: al5 al5
--- NOTE | 2024-04-02 21:21 | EDPHYS ---
Physician Documentation [facility] Name: Harriett Gillette Age: 33 yrs Sex: Female : 1990 Arrival Date: 04/02/2024 Time: 20:35 Bed IW5 Private MD: ED Physician Nicolas Mcbride HPI: 04/02 21:52 This 33 yrs old Female presents to ER via Ambulatory with complaints of Cough, sb4 Congestion, Flu Symptoms, Toothache. 21:53 patient states she was seen here about 2 weeks ago with FLS, had negative swabs, told sb4 it was a viral infection. she states that her symptoms improved. additionally, she has been battling a dental infection, taking amoxicillin, which she states has improved. states that her FLS returned today and worsened after she woke up from a nap- body aches, sinus congestion, malaise. 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 - Infectious Disease History:: Denies. - Social history:: Smoking status: Patient/guardian denies using tobacco. ROS: 21:53 Abdomen/GI: Negative for abdominal pain, nausea, vomiting, diarrhea, and constipation, sb4 21:53 Constitutional: Positive for body aches, malaise, 21:53 ENT: Positive for sinus congestion, 21:53 All other systems are negative, Exam: 21:53 Eyes: Extra-ocular motions intact. Periorbital areas with no swelling, redness, or sb4 edema. 21:53 Cardiovascular: Regular rate and rhythm with a normal S1 and S2. Respiratory: No increased work of breathing, no retractions or nasal flaring. Abdomen/GI: Soft, non-tender, no distension. Skin: Warm, dry with normal turgor. Normal color with no rashes, no lesions, and no evidence of cellulitis. 21:53 Constitutional: The patient appears alert, awake, obviously ill, 21:53 Head/face: Sinus tenderness, is not appreciated, Vital Signs: 21:13 BP 126 / 89; Pulse 89; Resp 16; Temp 98.8; Pulse Ox 100% on R/A; Weight 68.04 kg; al5 Height 5 ft. 0 in. ; Pain 5/10; 21:13 Body Mass Index 29.29 (68.04 kg, 152.4 cm) al5 21:13 Pain Scale: Adult al5 MDM: 20:48 Medical Screening Exam initiated sb4 21:58 Data reviewed: vital signs, nurses notes, and as a result, I will discharge patient. sb4 Counseling: I had a detailed discussion with the patient and/or guardian regarding the historical points, exam findings, and any diagnostic results supporting the discharge/admit diagnosis, the need for outpatient follow up, for definitive care, to return to the emergency department if symptoms worsen or persist or if there are any questions or concerns that arise at home. Administered Medications: 21:32 Drug: Dexamethasone IM 10 mg IM once Route: IM; Site: right deltoid; al5 21:46 Follow up: Response: No adverse reaction al5 Disposition: 04/03 04:02 Co-signature as Attending Physician, Nicolas Mcbride MD I agree with the assessment sp4 and plan of care. I reviewed the patient's care provided by the Advanced Practice Provider and agree with the diagnosis and treatment plan. Disposition Summary: 04/02/24 21:20 Discharge Ordered Notes: Location: Home sb4 Problem: an ongoing problem sb4 Symptoms: have improved sb4 Condition: Stable sb4 Diagnosis - Acute upper respiratory infection, unspecified sb4 Followup: sb4 - With: Emergency Department - When: As needed - Reason: Trouble breathing, Worsening of condition Discharge Instructions: - Discharge Summary Sheet sb4 - Upper Respiratory Infection, Adult, [id number]-km-[id number] sb4 Forms: - Patient Portal Instructions sb4 - Leadership Thank You Letter sb4 Prescriptions: - Medrol (Trent) 4 mg Oral Tablets, Dose Pack - take 1 tablet ORAL route as directed - follow package instructions; 1 packet; sb4 Refills: 0, Product Selection Permitted Signatures: Татьяна Leal PA-C PA-C sb4 Nicolas Mcbride MD MD sp4 Mayte Layne RN RN al5
[2024-04-02] MEDS ORDERED: dexAMETHasone 10 MG/ML VIAL ONE (21:29)
[2024-04-02 22:17] VITALS: BP 126/89; TEMP 98.8; O2SAT 100
== END 2024-04-02 21:47 | disposition home or self-care (01) ==
LOC: ER 20:35
DX: J06.9 Acute upper respiratory infection, unspecified (principal)
CPT/HCPCS: 96372; 99284; J1100